=== PATIENT | female | born 1950 | race American Indian/Alaskan Native ===

== ENCOUNTER 2018-05-09 22:43 | Inpatient (IN) | payer MEDICARE ==
[2018-05-09] MEDS ORDERED: ASPIRIN PO ONE (22:59)
--- NOTE | 2018-05-09 23:18 | Emergency Department Report ---
ED Chest Pain HPI - General Chief Complaint: Chest Pain Stated Complaint: CHEST PAIN Time Seen by Provider: 05/09/18 22:48 Source: patient, EMS Mode of arrival: Stretcher Limitations: No Limitations - History of Present Illness Initial Comments: 67-year-old female with history of CHF, CAD w/ AICD presents to ED with 3 day history of left-sided chest pain. Patient states pain is intermittent, feels like indigestion. She states she took [place] and Aleve, however did not relieve her pain. Patient states pain radiates into her left arm as well. Patient reports associated shortness of breath. Patient is on 4 L of O2 chronically. Patient reports chronic swelling in left leg. Also reports swelling to left breast which has been present for several months. She says her physicians at [facility] ordered an ultrasound of the left breast. Patient states it did not show anything concerning. When asked if the pain that she is experiencing is coming from her breast or inside her chest, patient states the pain feels internal. PCP: Suresh Continuous Dryout Operator: Suresh ALARCON Complaint: chest pain -: days(s) (3) Onset: during rest, during exertion Pain Location: left chest Pain Radiation: LUE Severity: moderate Quality: other ("like indigestion") Consistency: intermittent Improves With: nothing Worsens With: nothing re: dyspnea. denies: nausea, vomting, diaphoresis Other Symptoms: leg swelling (chronic). denies: cough, fever - Related Data Home Medications Medication Instructions Recorded Confirmed Last Taken Aspirin [Adult Aspirin] 81 mg PO DAILY 02/24/18 05/10/18 05/09/18 Clopidogrel Bisulfate [Plavix] 75 mg PO QDAY 02/24/18 05/10/18 05/09/18 Duloxetine HCl 40 mg PO QDAY 02/24/18 05/10/18 05/09/18 Spironolactone [Aldactone] 25 mg PO QDAY 02/24/18 05/10/18 05/09/18 buPROPion SR [Wellbutrin SR] 150 mg PO BID 02/24/18 05/10/18 05/09/18 Buspirone HCl [busPIRone] 15 mg PO BID 05/10/18 05/10/18 05/09/18 Carvedilol 12.5 mg PO BID 01/05/10/18 05/09/18 Cyclobenzaprine [Flexeril] 10 mg PO TID PRN 05/10/18 05/10/18 05/09/18 Diphenhydramine HCl [Allergy 25 mg PO DAILY 05/10/18 05/10/18 05/09/18 Relief] Furosemide [Lasix] 80 mg PO DAILY 05/10/18 05/10/18 05/09/18 ISOSORBIDE MONOnitrate [Imdur ER] 60 mg PO QDAY 05/10/18 05/10/18 05/09/18 LORazepam [Ativan] 0.5 mg PO Q6H PRN 05/10/18 05/10/18 05/09/18 Sertraline HCl [Zoloft] 50 mg PO DAILY 05/10/18 05/10/18 05/09/18 hydrALAZINE [Apresoline] 25 mg PO Q8HR 05/10/18 05/10/18 05/09/18 Previous Rx's Medication Instructions Recorded Last Taken Type Albuterol Sulfate [Ventolin HFA] 1 puff IH Q6H PRN 30 Days 03/03/18 05/09/18 Rx [email or web address] Allergies Allergy/AdvReac Type Severity Reaction Status Date / Time lisinopril Allergy Anaphylaxis Verified 02/24/18 09:15 Penicillins Allergy Seizure Verified 02/24/18 09:15 Sulfa (Sulfonamide AdvReac Hives Verified 02/24/18 09:15 Antibiotics) Heart Score - HEART Score History: Slightly suspicious EKG: Non-specific Age: > 65 Risk factors: > 3 risk factors or hx of atherosclerotic disease Troponin: < normal limit HEART Score: 5 ED Review of Systems ROS: Stated complaint: CHEST PAIN Other details as noted in HPI Comment: All other systems reviewed and negative Constitutional: denies: chills, fever Respiratory: shortness of breath. denies: cough Cardiovascular: chest pain Gastrointestinal: denies: nausea, vomiting Musculoskeletal: other (reports left breast swelling) ED Past Medical Hx - Past Medical History Hx Hypertension: Yes Hx CVA: Yes (2016) Hx Heart Attack/AMI: Yes (2008) Hx COPD: Yes (home O2) - Surgical History Hx Pacemaker: Yes (AICD) - Social History Smoking Status: Former Smoker Substance Use Type: None - Medications Home Medications: Home Medications Medication Instructions Recorded Confirmed Last Taken Type Aspirin [Adult Aspirin] 81 mg PO DAILY 02/24/18 05/10/18 05/09/18 History Clopidogrel Bisulfate [Plavix] 75 mg PO QDAY 02/24/18 05/10/18 05/09/18 History Duloxetine HCl 40 mg PO QDAY 02/24/18 05/10/18 05/09/18 History Spironolactone [Aldactone] 25 mg PO QDAY 02/24/18 05/10/18 05/09/18 History buPROPion SR [Wellbutrin SR] 150 mg PO BID 02/24/18 05/10/18 05/09/18 History Albuterol Sulfate [Ventolin HFA] 1 puff IH Q6H PRN 30 Days 03/03/18 05/10/18 05/09/18 Rx [email or web address] Buspirone HCl [busPIRone] 15 mg PO BID 05/10/18 05/10/18 05/09/18 History Carvedilol 12.5 mg PO BID 05/10/18 05/10/18 05/09/18 History Cyclobenzaprine [Flexeril] 10 mg PO TID PRN 05/10/18 05/10/18 05/09/18 History Diphenhydramine HCl [Allergy 25 mg PO DAILY 05/10/18 05/10/18 05/09/18 History Relief] Furosemide [Lasix] 80 mg PO DAILY 05/10/18 05/10/18 05/09/18 History ISOSORBIDE MONOnitrate [Imdur ER] 60 mg PO QDAY 05/10/18 05/10/18 05/09/18 History LORazepam [Ativan] 0.5 mg PO Q6H PRN 05/10/18 05/10/18 05/09/18 History Sertraline HCl [Zoloft] 50 mg PO DAILY 05/10/18 05/10/18 05/09/18 History hydrALAZINE [Apresoline] 25 mg PO Q8HR 05/10/18 05/10/18 05/09/18 History ED Physical Exam - General Limitations: No Limitations General appearance: alert, in no apparent distress, obese - Head Head exam: Present: atraumatic, normocephalic - Eye Eye exam: Present: normal appearance - ENT ENT exam: Present: mucous membranes moist - Neck Neck exam: Present: normal inspection - Respiratory Respiratory exam: Present: normal lung sounds bilaterally. Absent: respiratory distress - Cardiovascular Cardiovascular Exam: Present: regular rate, normal rhythm - GI/Abdominal GI/Abdominal exam: Present: soft, other (edema to lower abdominal wall). Absent: distended - Extremities Exam Extremities exam: Present: other (1+ edema to left lower leg) - Neurological Exam Neurological exam: Present: alert, oriented X3 - Psychiatric Psychiatric exam: Present: normal affect, normal mood - Skin Skin exam: Present: warm, dry, intact, normal color, other (severe edema to left breast as compared to right, slightly tender, no nipple discharge present) ED Course Vital Signs 05/09/18 05/09/18 05/09/18 22:48 22:50 22:53 Temperature Pulse Rate 64 82 Respiratory 22 17 Rate Blood Pressure 130/57 Blood Pressure [Left] O2 Sat by Pulse 99 100 100 Oximetry 05/09/18 05/09/18 05/09/18 22:56 23:00 23:10 Temperature 98.5 F Pulse Rate 73 65 61 Respiratory 25 H 11 L 22 Rate Blood Pressure 130/57 130/57 Blood Pressure [Left] O2 Sat by Pulse 100 100 100 Oximetry 05/09/18 05/09/18 05/09/18 23:20 23:30 23:40 Temperature Pulse Rate 72 59 L 64 Respiratory 10 L 20 22 Rate Blood Pressure 130/57 130/57 130/57 Blood Pressure [Left] O2 Sat by Pulse 100 100 100 Oximetry 05/09/18 05/10/18 05/10/18 23:50 00:00 00:10 Temperature Pulse Rate 62 67 65 Respiratory 15 24 22 Rate Blood Pressure 130/57 130/57 130/57 Blood Pressure [Left] O2 Sat by Pulse 100 100 100 Oximetry 05/10/18 05/10/18 05/10/18 00:20 00:30 00:40 Temperature Pulse Rate 64 68 64 Respiratory 25 H 16 21 Rate Blood Pressure 130/57 130/57 130/57 Blood Pressure [Left] O2 Sat by Pulse 100 100 100 Oximetry 05/10/18 05/10/18 05/10/18 00:50 01:00 01:10 Temperature Pulse Rate 61 67 66 Respiratory 19 25 H 15 Rate Blood Pressure 130/57 130/57 130/57 Blood Pressure [Left] O2 Sat by Pulse 100 100 100 Oximetry 05/10/18 05/10/18 05/10/18 01:20 01:30 01:32 Temperature Pulse Rate 65 56 L 58 L Respiratory 14 14 16 Rate Blood Pressure 130/57 130/57 Blood Pressure 125/68 [Left] O2 Sat by Pulse 100 100 100 Oximetry CHRIS score - Chris Score Age > 65: (1) Yes Aspirin use within the Past 7 Days: (1) Yes 3 or more CAD Risk Factors: (1) Yes 2 or more Angina events in past 24 hrs: (1) Yes Known CAD with more than 50% Stenosis: (1) Yes Elevated Cardiac Markers: (0) No ST Deviation Greater than 0.5mm: (0) No CHRIS Score: 5 ED Medical Decision Making - Lab Data Result diagrams: 05/09/18 23:13 05/09/18 23:13 - EKG Data -: EKG Interpreted by Me EKG shows normal: intervals Rate: bradycardia - EKG Data Interpretation: other (ventricular paced rhythm) - Radiology Data Radiology results: report reviewed, image reviewed - Medical Decision Making 67-year-old female with history of CHF and CAD presents to ED with chest pain. This patient has been seen twice in the last 2 months for chest pain. Patient had a negative CTA Chest 2 during both visits. No evidence of PE. Patient underwent a cardiac cath last month which did show disease, however no stents were placed. Medical management was advised. Today troponin negative. EKG shows paced rhythm. Chest x-ray shows pleural effusion versus pneumonia, so blood cultures drawn and one dose of Levaquin was given. Also showing signs of overload with edema in abdominal wall, BNP elevated to 5,000. Lasix 80 mg IV given. Patient admitted to hospitalist, Dr Srivastava. - Differential Diagnosis ACS, pulm edema, pneumonia Critical care attestation.: If time is entered above; I have spent that time in minutes in the direct care of this critically ill patient, excluding procedure time. ED Disposition Clinical Impression: CHF (congestive heart failure), Acute chest pain, Pneumonia Disposition: OP ADMIT IP TO THIS HOSP Is pt being admited?: Yes Condition: Stable Time of Disposition: 00:11
[2018-05-09 23:30] LABS: Basophils % (Auto) 0.3 % (0.0-1.8); Eosinophils % (Auto) 0.6 % (0.0-4.3); Hematocrit 35.8 % (30.3-42.9); Hemoglobin 11.5 gm/dl (10.1-14.3); Lymphocytes # (Auto) 0.2 K/mm3 (1.2-5.4); Lymphocytes % (Auto) 5.6 % (13.4-35.0); Mean Corpuscular HGB Conc 32 % (30-34); Mean Corpuscular Volume 107 fl (79-97); Monocytes # (Auto) 0.5 K/mm3 (0.0-0.8); Monocytes % (Auto) 10.6 % (0.0-7.3); Platelet Count 164 K/mm3 (140-440); Red Blood Count 3.34 M/mm3 (3.65-5.03); Red Cell Distribution Width 16.2 % (13.2-15.2)
[2018-05-09 23:39] LABS: INR 1.08 (0.87-1.13)
[2018-05-09 23:40] LABS: Partial Thromboplastin Time 25.4 Sec. (24.2-36.6)
[2018-05-09 23:43] LABS: BUN/Creatinine Ratio 23; Blood Urea Nitrogen 18 mg/dL (7-17); Calcium 7.9 mg/dL (8.4-10.2); Hemolysis Index 2
--- NOTE | 2018-05-09 23:54 | XRay Report ---
FINAL REPORT EXAM: XR CHEST 1V AP HISTORY: chest pain TECHNIQUE: Chest single AP PRIORS: Comparison is dated March 25, 2018 FINDINGS: Cardiac silhouette is enlarged. Pacemaker/AICD again noted unchanged. There is some increased density in the left retrocardiac region which appears unchanged from prior exam. Pulmonary vasculature is within normal limits IMPRESSION: Cardiomegaly Pacemaker/AICD Left lower lobe infiltrate/effusion
[2018-05-10] MEDS ORDERED: LEVAQUIN 750MG/150ML 750 MG/150 ML BAG IV ONE (00:06)
[2018-05-10] MEDS ORDERED: LASIX IV ONE (00:10)
[2018-05-10] MEDS ORDERED: MORPHINE IV PRN (00:44)
[2018-05-10] MEDS ORDERED: NITROSTAT SL PRN (00:47)
[2018-05-10] MEDS: NITRO-BID 2% TP SCH ×4 (06:50→17:28)
--- NOTE | 2018-05-10 08:07 | History and Physical Report ---
CHIEF COMPLAINT: Chest pain. Other complaint includes shortness of breath. HISTORY OF PRESENT ILLNESS: The patient is a 67-year-old female who has history of coronary artery disease and CHF, presenting with 3-day history of left-sided chest pain that is intermittent and the patient states it feels like indigestion and took some antacid and Aleve without relief of the pain. Pain radiates to the left upper extremity and is associated with shortness of breath. However, the patient is on oxygen 4 L chronically. There is also history of swelling of the left leg, which is chronic. The patient also has history of swelling of the left breast going on for some months. The patient said that the left breast area was subjected to ultrasound investigation at [facility] and was told that there was nothing serious going on with the swelling in the left breast at [facility]. There is no history of fever. There is history of cough that is productive of yellow sputum. There is also associated history of diaphoresis, nausea, and dizziness. PAST MEDICAL HISTORY: Pertinent for hypertension, cerebrovascular accident, coronary artery disease, COPD, and CHF. PAST SURGICAL HISTORY: Pertinent for AICD placement. FAMILY HISTORY: Noncontributory. SOCIAL HISTORY: The patient is a former cigarette smoker. Does not smoke currently, does not drink alcohol and does not use illicit drugs. MEDICATIONS: The patient is on aspirin 81 mg by mouth daily, Plavix 75 mg by mouth daily, duloxetine 40 mg by mouth daily, Aldactone 25 mg by mouth daily, Wellbutrin 150 mg by mouth twice daily, albuterol sulfate 1 puff inhalation every 6 hours as needed for shortness of breath, buspirone 15 mg by mouth daily, carvedilol 12.5 mg by mouth twice daily, Flexeril 10 mg by mouth 3 times daily, diphenhydramine hydrochloride 25 mg by mouth daily, Lasix 80 mg by mouth daily, isosorbide mononitrate 60 mg by mouth daily, Ativan or lorazepam 0.5 mg by mouth every 6 hours as needed for anxiety, Zoloft or Sertraline 50 mg by mouth daily, and Apresoline or hydralazine 25 mg by mouth every 8 hours. ALLERGIES: THE PATIENT IS ALLERGIC TO LISINOPRIL, PENICILLIN, AND SULFA DRUGS. REVIEW OF SYSTEMS: CONSTITUTIONAL: There is no fever, no chills, no diaphoresis. HEENT: There is no headache or sore throat. CARDIOVASCULAR SYSTEM: Chest pain is present. No orthopnea. RESPIRATORY SYSTEM: Shortness of breath is present. Cough is present. GASTROINTESTINAL SYSTEM: There is nausea, but no vomiting. No abdominal pain, diarrhea, or constipation. NEUROLOGICAL SYSTEM: Dizziness present. No altered mental status. MUSCULOSKELETAL SYSTEM: Chronic swelling of the left lower extremity noted. No joint pain. DERMATOLOGICAL SYSTEM: There is no skin rash or itching. GENITOURINARY SYSTEM: There is no dysuria, hematuria, or flank pain. Rest of system review is normal. PHYSICAL EXAMINATION: GENERAL: At the time of exam, the patient was found to be alert, oriented x 3, and in mild distress due to chest pain and shortness of breath. VITAL SIGNS: At the initial time of presentation showed temperature of 98.5 degree Fahrenheit, pulse of 73, respirations 25, blood pressure 130/57, O2 sat of 100% on room air. HEENT: Shows pupils to be equal, round, reactive to light and accommodating. Extraocular muscles are intact. NECK: Supple with no JVD or carotid bruits. CARDIOVASCULAR SYSTEM: Show normal first and second heart sounds with no gallops or murmurs. RESPIRATORY SYSTEM: Show good air entry on both sides of the lungs with scattered crackles in the left lower lung bases. GASTROINTESTINAL SYSTEM: Show abdomen to be full, soft, nontender with no organomegaly or rigidity. NEUROLOGIC: Showed no focal deficit. MUSCULOSKELETAL SYSTEM: Show chronic swelling in the left lower extremity. DERMATOLOGICAL SYSTEM: Show no skin rash. GENITOURINARY SYSTEM: Show no costovertebral angle tenderness. PERTINENT LABORATORY AND IMAGING STUDIES: The patient had a chest x-ray done that shows left lower lobe infiltrate versus effusion. The patient's lab results shows CBC with low WBC of 4200, normal hemoglobin and normal hematocrit with elevated MCV of 107. The patient's CBC differential shows high monocyte count of 10.6% and high segmented neutrophil count of 82.9%. Coagulation studies were unremarkable. The patient's chemistry showed normal sodium, potassium, and elevated chloride level of 111 with elevated CO2 of 31, and the rest of chemistry was unremarkable, except for high brain natriuretic peptide level of 5118. The patient's troponin level came back normal. DIAGNOSES: 1. Congestive heart failure exacerbation. 2. Left lower lobe pneumonia. 3. Chest pain. PLAN OF ACTION: 1. The patient will be admitted as inpatient to telemetry. 2. The patient will have cardiac enzymes involving troponin, total CK, and CK-MB checked serially every 6 hours x 2 more levels. 3. The patient will be n.p.o. and we will have Lexiscan stress test done this morning 05/10/2018. 4. The patient will be on IV Levaquin 750 mg daily for treatment of pneumonia. 5. The patient will be on IV Lasix 40 mg daily. 6. The patient will be on nitro paste half inch to anterior chest wall q.i.d. and also will be on sublingual nitroglycerin 0.4 mg every 5 minutes for breakthrough chest pain. 7. The patient will be on aspirin 325 mg by mouth daily and Tylenol 650 mg by mouth every 4 hours as needed for fever and headache. 8. The patient will be on IV morphine 2 mg every 3 hours as needed for pain and will be on IV Zofran 4 mg every 8 hours for nausea and vomiting. 9. The patient will be on oxygen by nasal cannula 2 liter per minute. The patient will have 2D echo also done this morning for evaluation of the patient's left ventricular function because of CHF. JOB# [id number] [facility]/SHANIA VILLA
[2018-05-10 08:27] LABS: Creatine Kinase MB 2.2 ng/mL (0.0-4.0)
[2018-05-10] MEDS: ASPIRIN PO SCH (10:57)
[2018-05-10] MEDS: LEVAQUIN 750MG/150ML 750 MG/150 ML BAG IV SCH (10:58)
[2018-05-10] MEDS: LASIX IV SCH (10:58)
[2018-05-10] MEDS: HEPARIN SUB-Q SCH ×2 (10:58→21:09)
--- NOTE | 2018-05-10 11:28 | Progress Note ---
Assessment and Plan Assessment and plan: --Chest pain; serial cardiac enzymes negative Continue current management Patient had a stress test which was negative in March 2018, as well as heart cath Coronary angiogram ; March 2018 /Procedures [place] vessel disease with 100% occlusion of LAD 100% occlusion of proximal right coronary artery Patent graft to LAD patent graft to OM and PDA Ejection fraction 10-15%/dilated cardiomyopathy Continue aspirin and Plavix and beta blockers and nitrates and supportive care Stress test canceled --Severe ischemic cardiomyopathy; ejection fraction 10-15% Continue anti-failure medications, input output monitoring, low sodium diet Fluid restrictions --Status post AICD; stable, closely monitor --History of depression; continue home antidepressant medications --DVT prophylaxis; Lovenox Will closely monitor the patient and adjust management as needed Possible discharge in 1-2 days if stable History Interval history: Patient seen and examined medical records reviewed Patient feels slightly better no new complaints Vital signs noted Alert awake oriented 3 Hospitalist Physical - Constitutional Vitals: Temp Pulse Resp BP Pulse Ox 98.3 F 58 L 20 120/62 100 05/10/18 08:28 05/10/18 08:29 05/10/18 08:29 05/10/18 08:29 05/10/18 09:09 General appearance: Present: no acute distress, well-nourished, obese - EENT Eyes: Present: PERRL, EOM intact - Neck Neck: Present: supple, normal ROM - Respiratory Respiratory effort: normal Respiratory: bilateral: diminished, negative: rales, rhonchi, wheezing - Cardiovascular Rhythm: regular Heart Sounds: Present: S1 & S2 - Extremities Extremities: no ischemia, No edema - Abdominal General gastrointestinal: soft, non-tender, non-distended, normal bowel sounds - Integumentary Integumentary: Present: clear, warm - Psychiatric Psychiatric: appropriate mood/affect, cooperative - Neurologic Neurologic: CNII-XII intact, moves all extremities Results - Labs CBC & Chem 7: 05/09/18 23:13 05/09/18 23:13 Labs: Laboratory Last Values WBC 4.2 K/mm3 (4.5-11.0) L 05/09/18 23:13 RBC 3.34 M/mm3 (3.65-5.03) L 05/09/18 23:13 Hgb 11.5 gm/dl (10.1-14.3) 05/09/18 23:13 Hct 35.8 % (30.3-42.9) 05/09/18 23:13 MCV 107 fl (79-97) H 05/09/18 23:13 MCH 34 pg (28-32) H 05/09/18 23:13 MCHC 32 % (30-34) 05/09/18 23:13 RDW 16.2 % (13.2-15.2) H 05/09/18 23:13 Plt Count 164 K/mm3 (140-440) 05/09/18 23:13 Lymph % (Auto) 5.6 % (13.4-35.0) L 05/09/18 23:13 [place] % (Auto) 10.6 % (0.0-7.3) H 05/09/18 23:13 Eos % (Auto) 0.6 % (0.0-4.3) 05/09/18 23:13 Baso % (Auto) 0.3 % (0.0-1.8) 05/09/18 23:13 Lymph # 0.2 K/mm3 (1.2-5.4) L 05/09/18 23:13 [place] # 0.5 K/mm3 (0.0-0.8) 05/09/18 23:13 Eos # 0.0 K/mm3 (0.0-0.4) 05/09/18 23:13 Baso # 0.0 K/mm3 (0.0-0.1) 05/09/18 23:13 Seg Neutrophils % 82.9 % (40.0-70.0) H 05/09/18 23:13 Seg Neutrophils # 3.5 K/mm3 (1.8-7.7) 05/09/18 23:13 PT 14.4 Sec. (12.2-14.9) 05/09/18 23:13 INR 1.08 (0.87-1.13) 05/09/18 23:13 APTT 25.4 Sec. (24.2-36.6) 05/09/18 23:13 Sodium 145 mmol/L (137-145) 05/09/18 23:13 Potassium 4.4 mmol/L (3.6-5.0) 05/09/18 23:13 Chloride 111.4 mmol/L (98-107) H 05/09/18 23:13 Carbon Dioxide 31 mmol/L (22-30) H 05/09/18 23:13 Anion Gap 7 mmol/L 05/09/18 23:13 BUN 18 mg/dL (7-17) H 05/09/18 23:13 Creatinine 0.8 mg/dL (0.7-1.2) 05/09/18 23:13 Estimated GFR > 60 ml/min 05/09/18 23:13 BUN/Creatinine Ratio 23 % 05/09/18 23:13 Glucose 92 mg/dL (65-100) 05/09/18 23:13 Calcium 7.9 mg/dL (8.4-10.2) L 05/09/18 23:13 Total Creatine Kinase 142 units/L (30-135) H 05/10/18 07:18 CK-MB (CK-2) 2.2 ng/mL (0.0-4.0) 05/10/18 07:18 CK-MB (CK-2) Rel Index 1.5 (0-4) 05/10/18 07:18 Troponin T < 0.010 ng/mL (0.00-0.029) 05/10/18 07:18 NT-Pro-B Natriuret Pep 5118 pg/mL (0-900) H 05/09/18 23:13
[2018-05-10] MEDS ORDERED: PROAIR IH PRN (11:30)
[2018-05-10] MEDS ORDERED: PROVENTIL IH PRN (12:45)
[2018-05-10 14:38] LABS: Creatine Kinase MB 2.6 ng/mL (0.0-4.0)
[2018-05-10] MEDS: MORPHINE IV PRN ×2 (15:06→21:10)
[2018-05-10] MEDS: APRESOLINE PO SCH ×2 (15:07→21:13)
[2018-05-10] MEDS: COREG PO SCH (21:10)
[2018-05-10] MEDS: WELLBUTRIN SR PO SCH (21:12)
[2018-05-11] MEDS: MORPHINE IV PRN ×2 (05:16→14:08)
[2018-05-11] MEDS: APRESOLINE PO SCH ×3 (05:17→22:35)
[2018-05-11] MEDS: NITRO-BID 2% TP SCH ×4 (05:18→17:27)
[2018-05-11 05:20] LABS: BUN/Creatinine Ratio 19; Blood Urea Nitrogen 17 mg/dL (7-17); Hemolysis Index 5
[2018-05-11] MEDS: WELLBUTRIN SR PO SCH ×2 (10:18→22:33)
[2018-05-11] MEDS: PLAVIX PO SCH (10:19)
[2018-05-11] MEDS: LASIX IV SCH (10:19)
[2018-05-11] MEDS: ZOLOFT PO SCH (10:19)
[2018-05-11] MEDS: ASPIRIN PO SCH (10:19)
[2018-05-11] MEDS: HEPARIN SUB-Q SCH ×2 (10:19→22:33)
[2018-05-11] MEDS: LEVAQUIN 750MG/150ML 750 MG/150 ML BAG IV SCH (10:19)
[2018-05-11] MEDS: ALDACTONE PO SCH (11:01)
[2018-05-11] MEDS: COREG PO SCH ×2 (11:01→22:36)
[2018-05-11] MEDS: IMDUR PO SCH (11:02)
--- NOTE | 2018-05-11 16:09 | Progress Note ---
Assessment and Plan Assessment and plan: --Severe ischemic cardiomyopathy; ejection fraction 10-15% Continue anti-failure medications, input output monitoring, low sodium diet Fluid restrictions --Status post AICD; stable, closely monitor --Chest pain; serial cardiac enzymes negative recent workup no acute changes noted in March 2018, as well as heart cath Coronary angiogram ; March 2018 /Procedures [place] vessel disease with 100% occlusion of LAD 100% occlusion of proximal right coronary artery Patent graft to LAD patent graft to OM and PDA Ejection fraction 10-15%/dilated cardiomyopathy Continue aspirin and Plavix and beta blockers and nitrates and supportive care Stress test canceled, consider cardiology evaluation is needed --History of depression; continue home antidepressant medications --DVT prophylaxis; Lovenox Will closely monitor the patient and adjust management as needed Possible discharge in 1-2 days if stable History Interval history: Patient seen and examined medical records reviewed 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 [place] Extensively evaluated last month Today patient is comfortable in no new complaints Except for generalized weakness Vital signs reviewed Hospitalist Physical - Constitutional Vitals: Temp Pulse Resp BP Pulse Ox 97.7 F 69 19 116/62 98 05/11/18 12:42 05/11/18 14:33 05/11/18 14:08 05/11/18 14:12 05/11/18 12:41 General appearance: Present: no acute distress, well-nourished, obese - EENT Eyes: Present: PERRL, EOM intact - Neck Neck: Present: supple, normal ROM - Respiratory Respiratory effort: normal Respiratory: bilateral: diminished, negative: rales, rhonchi, wheezing - Cardiovascular Rhythm: regular Heart Sounds: Present: S1 & S2 - Extremities Extremities: no ischemia, No edema - Abdominal General gastrointestinal: soft, non-tender, non-distended, normal bowel sounds - Integumentary Integumentary: Present: clear, warm - Psychiatric Psychiatric: appropriate mood/affect, cooperative - Neurologic Neurologic: CNII-XII intact Results - Labs CBC & Chem 7: 05/09/18 23:13 05/11/18 04:33 Labs: Laboratory Last Values WBC 4.2 K/mm3 (4.5-11.0) L 05/09/18 23:13 RBC 3.34 M/mm3 (3.65-5.03) L 05/09/18 23:13 Hgb 11.5 gm/dl (10.1-14.3) 05/09/18 23:13 Hct 35.8 % (30.3-42.9) 05/09/18 23:13 MCV 107 fl (79-97) H 05/09/18 23:13 MCH 34 pg (28-32) H 05/09/18 23:13 MCHC 32 % (30-34) 05/09/18 23:13 RDW 16.2 % (13.2-15.2) H 05/09/18 23:13 Plt Count 164 K/mm3 (140-440) 05/09/18 23:13 Lymph % (Auto) 5.6 % (13.4-35.0) L 05/09/18 23:13 [place] % (Auto) 10.6 % (0.0-7.3) H 05/09/18 23:13 Eos % (Auto) 0.6 % (0.0-4.3) 05/09/18 23:13 Baso % (Auto) 0.3 % (0.0-1.8) 05/09/18 23:13 Lymph # 0.2 K/mm3 (1.2-5.4) L 05/09/18 23:13 [place] # 0.5 K/mm3 (0.0-0.8) 05/09/18 23:13 Eos # 0.0 K/mm3 (0.0-0.4) 05/09/18 23:13 Baso # 0.0 K/mm3 (0.0-0.1) 05/09/18 23:13 Seg Neutrophils % 82.9 % (40.0-70.0) H 05/09/18 23:13 Seg Neutrophils # 3.5 K/mm3 (1.8-7.7) 05/09/18 23:13 PT 14.4 Sec. (12.2-14.9) 05/09/18 23:13 INR 1.08 (0.87-1.13) 05/09/18 23:13 APTT 25.4 Sec. (24.2-36.6) 05/09/18 23:13 Sodium 139 mmol/L (137-145) 05/11/18 04:33 Potassium 4.2 mmol/L (3.6-5.0) 05/11/18 04:33 Chloride 103.7 mmol/L (98-107) 05/11/18 04:33 Carbon Dioxide 32 mmol/L (22-30) H 05/11/18 04:33 Anion Gap 8 mmol/L 05/11/18 04:33 BUN 17 mg/dL (7-17) 05/11/18 04:33 Creatinine 0.9 mg/dL (0.7-1.2) 05/11/18 04:33 Estimated GFR > 60 ml/min 05/11/18 04:33 BUN/Creatinine Ratio 19 % 05/11/18 04:33 Glucose 91 mg/dL (65-100) 05/11/18 04:33 Calcium 8.0 mg/dL (8.4-10.2) L 05/11/18 04:33 Magnesium 1.90 mg/dL (1.7-2.3) 05/11/18 04:33 Total Creatine Kinase 172 units/L (30-135) H 05/10/18 12:33 CK-MB (CK-2) 2.6 ng/mL (0.0-4.0) 05/10/18 12:33 CK-MB (CK-2) Rel Index 1.5 (0-4) 05/10/18 12:33 Troponin T 0.011 ng/mL (0.00-0.029) 05/10/18 12:33 NT-Pro-B Natriuret Pep 5118 pg/mL (0-900) H 05/09/18 23:13
[2018-05-11] MEDS: ZOFRAN IV PRN (16:52)
[2018-05-12] MEDS: NITRO-BID 2% TP SCH ×4 (05:56→19:17)
[2018-05-12] MEDS: APRESOLINE PO SCH ×3 (05:58→22:50)
[2018-05-12] MEDS: ALDACTONE PO SCH (09:37)
[2018-05-12] MEDS: WELLBUTRIN SR PO SCH ×2 (09:38→22:50)
[2018-05-12] MEDS: ZOLOFT PO SCH (09:38)
[2018-05-12] MEDS: ASPIRIN PO SCH (09:38)
[2018-05-12] MEDS: COREG PO SCH ×2 (09:38→22:50)
[2018-05-12] MEDS: LEVAQUIN 750MG/150ML 750 MG/150 ML BAG IV SCH (09:39)
[2018-05-12] MEDS: LASIX IV SCH (09:39)
[2018-05-12] MEDS: PLAVIX PO SCH (09:39)
[2018-05-12] MEDS: IMDUR PO SCH (09:40)
[2018-05-12] MEDS: HEPARIN SUB-Q SCH ×2 (09:41→22:50)
[2018-05-12] MEDS: TYLENOL PO PRN ×2 (09:46→15:48)
--- NOTE | 2018-05-12 11:32 | Consultation ---
Addendum entered and electronically signed by JUWAN HOPE MD 05/12/18 18:09: Patient has coronary artery disease, severe ischemic cardiomyopathy, internal ca rdiac defibrillator. Chest x-ray on this presentation shows interstitial edema consistent with acute on chronic systolic heart failure. In addition to diuretics, afterload agents and other guideline directed medical therapy, we will add a trial of intravenous inotropic therapy. Addendum entered and electronically signed by JUWAN HOPE MD 05/12/18 17:42: Medical therapy for heart failure exacerbation. Original Note: History of Present Illness Consult date: 05/12/18 Consult reason: chest pain History of present illness: Patient is a 67 year old woman lula usually receives her care at [facility]. She has a history of ischemic cardiomyopathy and has a cardiac defibrillator in situ. Patient has a history of coronary artery disease with prior bypass grafting. A month ago the patient was admitted to this hospital with chest pain and underw ent a cardiac cath that revealed patent SVG to LAD, SVG to OM and SVG to PDA, Patent diagonal stent, LVEF 10-15%. Patient returns with complaints of chest pain, intermittent for several days. Patient admits to compliance with her medications. A chest x-ray reports cardiomegaly with a left lower lobe infiltrate versus effusion. Findings are similar when compared to her chest x-ray done in March. An EKG shows a ventricular paced rhythm. Medications and Allergies Allergies Allergy/AdvReac Type Severity Reaction Status Date / Time lisinopril Allergy Anaphylaxis Verified 02/24/18 09:15 Penicillins Allergy Seizure Verified 02/24/18 09:15 Sulfa (Sulfonamide AdvReac Hives Verified 02/24/18 09:15 Antibiotics) Home Medications Medication Instructions Recorded Confirmed Last Taken Type Aspirin [Adult Aspirin] 81 mg PO DAILY 02/24/18 05/10/18 05/09/18 History Clopidogrel Bisulfate [Plavix] 75 mg PO QDAY 02/24/18 05/10/18 05/09/18 History Duloxetine HCl 40 mg PO QDAY 02/24/18 05/10/18 05/09/18 History Spironolactone [Aldactone] 25 mg PO QDAY 02/24/18 05/10/18 05/09/18 History buPROPion SR [Wellbutrin SR] 150 mg PO BID 11/04/0105/10/18 05/09/18 History Albuterol Sulfate [Ventolin HFA] 1 puff IH Q6H PRN 30 Days 03/03/18 05/10/18 05/09/18 Rx [email or web address] Buspirone HCl [busPIRone] 15 mg PO BID 05/10/18 05/10/18 05/09/18 History Carvedilol 12.5 mg PO BID 05/10/18 05/10/18 05/09/18 History Cyclobenzaprine [Flexeril] 10 mg PO TID PRN 05/10/18 05/10/18 05/09/18 History Diphenhydramine HCl [Allergy 25 mg PO DAILY 05/10/18 05/10/18 05/09/18 History Relief] Furosemide [Lasix] 80 mg PO DAILY 05/10/18 05/10/18 05/09/18 History ISOSORBIDE MONOnitrate [Imdur ER] 60 mg PO QDAY 05/10/18 05/10/18 05/09/18 History LORazepam [Ativan] 0.5 mg PO Q6H PRN 05/10/18 05/10/18 05/09/18 History Sertraline HCl [Zoloft] 50 mg PO DAILY 05/10/18 05/10/18 05/09/18 History hydrALAZINE [Apresoline] 25 mg PO Q8HR 05/10/18 05/10/18 05/09/18 History Active Meds: Active Medications Acetaminophen (Tylenol) 650 mg PO Q4H PRN PRN Reason: Fever >101 Last Admin: 05/12/18 09:46 Dose: 650 mg Documented by: Albuterol (Proventil) 2.5 mg IH Q4H PRN PRN Reason: Shortness Of Breath Aspirin (Aspirin) 325 mg PO QDAY [facility] Last Admin: 05/12/18 09:38 Dose: 325 mg Documented by: Bupropion HCl (Wellbutrin Sr) 150 mg PO BID [facility] Last Admin: 05/12/18 09:38 Dose: 150 mg Documented by: Carvedilol (Coreg) 12.5 mg PO BID [facility] Last Admin: 05/12/18 09:38 Dose: 12.5 mg Documented by: Clopidogrel Bisulfate (Plavix) 75 mg PO QDAY [facility] Last Admin: 05/12/18 09:39 Dose: 75 mg Documented by: Furosemide (Lasix) 40 mg IV QDAY [facility] Last Admin: 05/12/18 09:39 Dose: Not Given Documented by: Heparin Sodium (Porcine) (Heparin) 5,000 unit SUB-Q Q12HR [facility] Last Admin: 05/12/18 09:41 Dose: 5,000 unit Documented by: Hydralazine HCl (Apresoline) 25 mg PO Q8HR [facility] Last Admin: 05/12/18 05:58 Dose: Not Given Documented by: Levofloxacin/Dextrose (Levaquin 750mg/150ml) 750 mg in 150 mls @ 100 mls/hr IV Q24HR [facility]; Protocol Last Admin: 05/12/18 09:39 Dose: 100 mls/hr Documented by: Isosorbide Mononitrate (Imdur) 60 mg PO QDAY [facility] Last Admin: 05/12/18 09:40 Dose: Not Given Documented by: Morphine Sulfate (Morphine) 2 mg IV Q3H PRN PRN Reason: Pain, Moderate (4-6) Last Admin: 05/11/18 14:08 Dose: 2 mg Documented by: Nitroglycerin (Nitrostat) 0.4 mg SL .Q5MIN PRN PRN Reason: Chest Pain Last Admin: 05/10/18 03:29 Dose: 0.4 mg Documented by: Nitroglycerin (Nitro-Bid 2%) 0.5 inch TP QIDNTG [facility]; Protocol Last Admin: 05/12/18 09:39 Dose: Not Given Documented by: Ondansetron HCl (Zofran) 4 mg IV Q8H PRN PRN Reason: Nausea And Vomiting Last Admin: 05/11/18 16:52 Dose: 4 mg Documented by: Sertraline HCl (Zoloft) 50 mg PO DAILY [facility] Last Admin: 05/12/18 09:38 Dose: Not Given Documented by: Spironolactone (Aldactone) 25 mg PO QDAY [facility] Last Admin: 05/12/18 09:37 Dose: Not Given Documented by: Physical Examination Vital Signs Pulse Ox 99 05/09/18 22:48 General appearance: no acute distress HEENT: Positive: PERRL Cardiac: Positive: Other (paced) Lungs: Positive: Decreased Breath Sounds Neuro: Positive: Grossly Intact Extremities: Absent: edema Results 05/09/18 23:13 05/11/18 04:33 Assessment and Plan Chest pain Hx of coronary artery disease cardiac cath 03/2018 revealed patent SVG to LAD, SVG to OM and SVG to PDA, Patent diagonal stent, LVEF 10-15%. Hx of Ischemic cardiomyopathy, ejection fraction 10-15%. Presence of single chamber cardiac defibrillator Tobacco abuse
--- NOTE | 2018-05-12 16:15 | Progress Note ---
Assessment and Plan Assessment and plan: 67-year-old female patient with significant past medical history of coronary artery disease status post PCI, CHF, AICD placement was admitted through emergency room with worsening shortness of breath left lower lobe pneumonia, patient is on empiric antibiotics and cardiac medications --Left lower lobe pneumonia; continue oxygen titrated O2 sats more than 90% IV antibiotics, follow cultures, cough medicine, antihistamines supportive care --Severe ischemic cardiomyopathy; ejection fraction 10-15% Continue anti-failure medications, input output monitoring, low sodium diet Fluid restrictions --Status post AICD; stable, closely monitor --Chest pain; serial cardiac enzymes negative recent workup no acute changes noted in March 2018, as well as heart cath Coronary angiogram ; March 2018 /Procedures [place] vessel disease with 100% occlusion of LAD 100% occlusion of proximal right coronary artery, Patent graft to LAD patent graft to OM and PDA Ejection fraction 10-15%/dilated cardiomyopathy Continue aspirin and Plavix and beta blockers and nitrates and supportive care Stress test canceled, consider cardiology evaluation is needed --History of depression; continue home antidepressant medications --DVT prophylaxis; Lovenox Will closely monitor the patient and adjust management as needed Possible discharge in 1-2 days if stable Disposition; follow clinically possible discharge in 1-2 days if stable History Interval history: Patient seen and examined medical records reviewed Patient complains of cough and congestion Admitted with left lower lobe pneumonia on IV antibiotics and cough medicine Patient also complains of chest pain today, has significant history of coronary artery disease Alert awake oriented, Mild distress Vital signs reviewed Hospitalist Physical - Constitutional Vitals: Temp Pulse Resp BP Pulse Ox 98.3 F 54 L 18 103/53 100 05/12/18 13:20 05/12/18 15:51 05/12/18 15:51 05/12/18 15:51 05/12/18 13:20 General appearance: Present: mild distress, well-nourished - EENT Eyes: Present: PERRL, EOM intact - Neck Neck: Present: supple, normal ROM - Respiratory Respiratory effort: normal Respiratory: bilateral: diminished, rhonchi, negative: rales, wheezing - Cardiovascular Rhythm: regular Heart Sounds: Present: S1 & S2 - Extremities Extremities: no ischemia, No edema - Abdominal General gastrointestinal: soft, non-tender, non-distended, normal bowel sounds - Integumentary Integumentary: Present: clear, warm - Psychiatric Psychiatric: appropriate mood/affect, cooperative - Neurologic Neurologic: CNII-XII intact, moves all extremities Results - Labs CBC & Chem 7: 05/09/18 23:13 05/11/18 04:33 Labs: Laboratory Last Values WBC 4.2 K/mm3 (4.5-11.0) L 05/09/18 23:13 RBC 3.34 M/mm3 (3.65-5.03) L 05/09/18 23:13 Hgb 11.5 gm/dl (10.1-14.3) 05/09/18 23:13 Hct 35.8 % (30.3-42.9) 05/09/18 23:13 MCV 107 fl (79-97) H 05/09/18 23:13 MCH 34 pg (28-32) H 05/09/18 23:13 MCHC 32 % (30-34) 05/09/18 23:13 RDW 16.2 % (13.2-15.2) H 05/09/18 23:13 Plt Count 164 K/mm3 (140-440) 05/09/18 23:13 Lymph % (Auto) 5.6 % (13.4-35.0) L 05/09/18 23:13 [place] % (Auto) 10.6 % (0.0-7.3) H 05/09/18 23:13 Eos % (Auto) 0.6 % (0.0-4.3) 05/09/18 23:13 Baso % (Auto) 0.3 % (0.0-1.8) 05/09/18 23:13 Lymph # 0.2 K/mm3 (1.2-5.4) L 05/09/18 23:13 [place] # 0.5 K/mm3 (0.0-0.8) 05/09/18 23:13 Eos # 0.0 K/mm3 (0.0-0.4) 05/09/18 23:13 Baso # 0.0 K/mm3 (0.0-0.1) 05/09/18 23:13 Seg Neutrophils % 82.9 % (40.0-70.0) H 05/09/18 23:13 Seg Neutrophils # 3.5 K/mm3 (1.8-7.7) 05/09/18 23:13 PT 14.4 Sec. (12.2-14.9) 05/09/18 23:13 INR 1.08 (0.87-1.13) 05/09/18 23:13 APTT 25.4 Sec. (24.2-36.6) 05/09/18 23:13 Sodium 139 mmol/L (137-145) 05/11/18 04:33 Potassium 4.2 mmol/L (3.6-5.0) 05/11/18 04:33 Chloride 103.7 mmol/L (98-107) 05/11/18 04:33 Carbon Dioxide 32 mmol/L (22-30) H 05/11/18 04:33 Anion Gap 8 mmol/L 05/11/18 04:33 BUN 17 mg/dL (7-17) 05/11/18 04:33 Creatinine 0.9 mg/dL (0.7-1.2) 05/11/18 04:33 Estimated GFR > 60 ml/min 05/11/18 04:33 BUN/Creatinine Ratio 19 % 05/11/18 04:33 Glucose 91 mg/dL (65-100) 05/11/18 04:33 Calcium 8.0 mg/dL (8.4-10.2) L 05/11/18 04:33 Magnesium 1.90 mg/dL (1.7-2.3) 05/11/18 04:33 Total Creatine Kinase 172 units/L (30-135) H 05/10/18 12:33 CK-MB (CK-2) 2.6 ng/mL (0.0-4.0) 05/10/18 12:33 CK-MB (CK-2) Rel Index 1.5 (0-4) 05/10/18 12:33 Troponin T 0.011 ng/mL (0.00-0.029) 05/10/18 12:33 NT-Pro-B Natriuret Pep 5118 pg/mL (0-900) H 05/09/18 23:13
[2018-05-12] MEDS ORDERED: MILK OF MAGNESIA PO ONE (16:16)
[2018-05-12] MEDS: MILRINONE-D5W 20 MG/100 ML 20 MG/100 ML BAG IV SCH (18:31)
[2018-05-12] MEDS: ZOFRAN IV PRN (23:17)
[2018-05-12] MEDS: MILK OF MAGNESIA PO PRN (23:17)
[2018-05-13] MEDS: MILRINONE-D5W 20 MG/100 ML 20 MG/100 ML BAG IV SCH ×2 (03:45→11:49)
[2018-05-13] MEDS: MILK OF MAGNESIA PO PRN ×2 (03:51→17:11)
[2018-05-13 06:28] LABS: Basophils % (Auto) 0.6 % (0.0-1.8); Eosinophils % (Auto) 0.5 % (0.0-4.3); Hematocrit 32.8 % (30.3-42.9); Hemoglobin 10.8 gm/dl (10.1-14.3); Lymphocytes # (Auto) 0.2 K/mm3 (1.2-5.4); Lymphocytes % (Auto) 6.1 % (13.4-35.0); Mean Corpuscular HGB Conc 33 % (30-34); Mean Corpuscular Volume 104 fl (79-97); Monocytes # (Auto) 0.3 K/mm3 (0.0-0.8); Monocytes % (Auto) 10.6 % (0.0-7.3); Platelet Count 160 K/mm3 (140-440); Red Blood Count 3.17 M/mm3 (3.65-5.03); Red Cell Distribution Width 15.4 % (13.2-15.2)
[2018-05-13 06:41] LABS: BUN/Creatinine Ratio 18; Blood Urea Nitrogen 16 mg/dL (7-17); Hemolysis Index 30
[2018-05-13] MEDS: NITRO-BID 2% TP SCH ×4 (06:45→17:12)
[2018-05-13] MEDS: APRESOLINE PO SCH ×3 (06:50→22:01)
[2018-05-13] MEDS: LASIX IV SCH ×2 (06:50→17:13)
[2018-05-13] MEDS: TYLENOL PO PRN (07:16)
[2018-05-13] MEDS: IMDUR PO SCH (09:50)
[2018-05-13] MEDS: ZOLOFT PO SCH (09:50)
[2018-05-13] MEDS: ALDACTONE PO SCH (09:51)
[2018-05-13] MEDS: WELLBUTRIN SR PO SCH ×2 (09:51→21:57)
[2018-05-13] MEDS: LEVAQUIN PO SCH (09:51)
[2018-05-13] MEDS: COREG PO SCH ×2 (09:52→22:12)
[2018-05-13] MEDS: PLAVIX PO SCH (09:52)
[2018-05-13] MEDS: ASPIRIN PO SCH (09:55)
[2018-05-13] MEDS: HEPARIN SUB-Q SCH ×2 (09:55→21:57)
[2018-05-13] MEDS: MORPHINE IV PRN ×2 (11:52→20:22)
--- NOTE | 2018-05-13 12:43 | Progress Note ---
Assessment and Plan - Patient Problems (1) Acute on chronic systolic heart failure Current Visit: No Status: Acute Plan to address problem: Continue medical therapy, including IV inotropic therapy. Subjective Date of service: 05/13/18 Interval history: Patient looks and feels better, shortness of breath improved on heart failure therapy. Objective Vital Signs Temp Pulse Resp BP BP Pulse Ox 05/13/18 11:26 98.5 F 53 L 18 95/42 98 05/13/18 09:53 70 05/13/18 09:52 70 05/13/18 09:51 70 05/13/18 09:50 70 99 05/13/18 08:10 97.4 F L 63 20 112/54 93 05/13/18 06:50 60 110/54 05/13/18 04:27 98.5 F 62 12 110/54 88 05/13/18 03:00 51 L 05/12/18 23:15 98.0 F 61 16 110/40 92 05/12/18 22:50 53 L 110/56 05/12/18 19:37 100 05/12/18 19:17 98.1 F 53 L 16 116/56 94 05/12/18 15:51 54 L 18 103/53 05/12/18 15:00 53 L 05/12/18 14:41 53 L 110/91 05/12/18 14:40 53 L 110/91 05/12/18 13:20 98.3 F 53 L 18 110/91 100 - Physical Examination General: No Apparent Distress HEENT: Positive: PERRL Neck: Positive: neck supple Cardiac: Positive: Reg Rate and Rhythm Lungs: Positive: Decreased Breath Sounds Neuro: Positive: Grossly Intact Extremities: Absent: edema - Labs and Meds CBC 05/13/18 Range/Units 05:35 WBC 2.7 L (4.5-11.0) K/mm3 RBC 3.17 L (3.65-5.03) M/mm3 Hgb 10.8 (10.1-14.3) gm/dl Hct 32.8 (30.3-42.9) % Plt Count 160 (140-440) K/mm3 Lymph # 0.2 L (1.2-5.4) K/mm3 [place] # 0.3 (0.0-0.8) K/mm3 Eos # 0.0 (0.0-0.4) K/mm3 Baso # 0.0 (0.0-0.1) K/mm3 Comprehensive Metabolic Panel 05/13/18 Range/Units 05:35 Sodium 142 (137-145) mmol/L Potassium 4.1 (3.6-5.0) mmol/L Chloride 103.9 (98-107) mmol/L Carbon Dioxide 32 H (22-30) mmol/L BUN 16 (7-17) mg/dL Creatinine 0.9 (0.7-1.2) mg/dL Glucose 112 H (65-100) mg/dL Calcium 8.0 L (8.4-10.2) mg/dL
[2018-05-13] MEDS: ZOFRAN IV PRN ×2 (14:13→22:04)
--- NOTE | 2018-05-13 16:29 | Progress Note ---
Assessment and Plan Assessment and plan: Patient is 67-year-old female patient with significant past medical history of coronary artery disease status post PCI, CHF, AICD placement was admitted through emergency room with worsening shortness of breath left lower lobe pneumonia, patient is on empiric antibiotics and cardiac medications --Left lower lobe pneumonia; continue oxygen titrated O2 sats more than 90%, IV antibiotics, follow cultures, cough medicine, antihistamines supportive care\ --Acute on chronic hypoxic respiratory failure: wean 02 to home 2liters --Severe ischemic cardiomyopathy; ejection fraction 10-15%, Continue anti-fa ilure medications, input output monitoring, low sodium diet, Fluid restrictions --Status post AICD; stable, closely monitor --Acute on chronic systolic heart failure: Cardiology started Milrinone IV drip --Chest pain; serial cardiac enzymes negative recent workup no acute changes noted in March 2018, as well as heart cath Coronary angiogram ; March 2018 /Procedures [place] vessel disease with 100% occlusion of LAD 100% occlusion of proximal right coronary artery, Patent graft to LAD patent graft to OM and PDA Ejection fraction 10-15%/dilated cardiomyopathy Continue aspirin and Plavix and beta blockers and nitrates and supportive care Stress test canceled, consider cardiology evaluation is needed --History of depression; continue home antidepressant medications --DVT prophylaxis; Lovenox Will closely monitor the patient and adjust management as needed Monitor on primacor IV drip History Interval history: Patient was seen and examined. Follow-up on current diagnosis of SOB. Overnight uneventful. Patient denies any chest pain, nausea/vomiting or severe headaches. Imaging, nursing note, chart, labs and old chart reviewed. Discussed with patient. Hospitalist Physical - Physical exam Narrative exam: Gen: WDWN, NAD, Awake, Alert, Orientated HEENT: NCAT, EOMI, PERRL, OP Clear Neck: supple, no adenopathy, no thyromegaly, no JVD CVS/Heart: RRR, normal S1S2, pulses present bilaterally Chest/Lungs: diminished bs bilateral, Symmetrical chest expansion, good air entry bilaterally GI/Abdomen: soft, NTND, good bowel sounds, no guarding or rebound /Bladder: no suprapubic tenderness, no CVA or paraspinal tenderness Extermity/Skin: no c/c/e, no obvious rash MSK: FROM x 4 Neuro: CN 2-12 grossly intact, no new focal deficits Psych: calm - Constitutional Vitals: Temp Pulse Resp BP Pulse Ox 98.5 F 53 L 18 109/52 98 05/13/18 11:26 05/13/18 11:26 05/13/18 11:26 05/13/18 14:12 05/13/18 11:26 General appearance: Present: well-nourished Results - Labs CBC & Chem 7: 05/13/18 05:35 05/13/18 05:35 Labs: Laboratory Last Values WBC 2.7 K/mm3 (4.5-11.0) L 05/13/18 05:35 RBC 3.17 M/mm3 (3.65-5.03) L 05/13/18 05:35 Hgb 10.8 gm/dl (10.1-14.3) 05/13/18 05:35 Hct 32.8 % (30.3-42.9) 05/13/18 05:35 MCV 104 fl (79-97) H 05/13/18 05:35 MCH 34 pg (28-32) H 05/13/18 05:35 MCHC 33 % (30-34) 05/13/18 05:35 RDW 15.4 % (13.2-15.2) H 05/13/18 05:35 Plt Count 160 K/mm3 (140-440) 05/13/18 05:35 Lymph % (Auto) 6.1 % (13.4-35.0) L 05/13/18 05:35 [place] % (Auto) 10.6 % (0.0-7.3) H 05/13/18 05:35 Eos % (Auto) 0.5 % (0.0-4.3) 05/13/18 05:35 Baso % (Auto) 0.6 % (0.0-1.8) 05/13/18 05:35 Lymph # 0.2 K/mm3 (1.2-5.4) L 05/13/18 05:35 [place] # 0.3 K/mm3 (0.0-0.8) 05/13/18 05:35 Eos # 0.0 K/mm3 (0.0-0.4) 05/13/18 05:35 Baso # 0.0 K/mm3 (0.0-0.1) 05/13/18 05:35 Seg Neutrophils % 82.2 % (40.0-70.0) H 05/13/18 05:35 Seg Neutrophils # 2.2 K/mm3 (1.8-7.7) 05/13/18 05:35 PT 14.4 Sec. (12.2-14.9) 05/09/18 23:13 INR 1.08 (0.87-1.13) 05/09/18 23:13 APTT 25.4 Sec. (24.2-36.6) 05/09/18 23:13 Sodium 142 mmol/L (137-145) 05/13/18 05:35 Potassium 4.1 mmol/L (3.6-5.0) 05/13/18 05:35 Chloride 103.9 mmol/L (98-107) 05/13/18 05:35 Carbon Dioxide 32 mmol/L (22-30) H 05/13/18 05:35 Anion Gap 10 mmol/L 05/13/18 05:35 BUN 16 mg/dL (7-17) 05/13/18 05:35 Creatinine 0.9 mg/dL (0.7-1.2) 05/13/18 05:35 Estimated GFR > 60 ml/min 05/13/18 05:35 BUN/Creatinine Ratio 18 % 05/13/18 05:35 Glucose 112 mg/dL (65-100) H 05/13/18 05:35 Calcium 8.0 mg/dL (8.4-10.2) L 05/13/18 05:35 Magnesium 1.90 mg/dL (1.7-2.3) 05/11/18 04:33 Total Creatine Kinase 172 units/L (30-135) H 05/10/18 12:33 CK-MB (CK-2) 2.6 ng/mL (0.0-4.0) 05/10/18 12:33 CK-MB (CK-2) Rel Index 1.5 (0-4) 05/10/18 12:33 Troponin T 0.011 ng/mL (0.00-0.029) 05/10/18 12:33 NT-Pro-B Natriuret Pep 5118 pg/mL (0-900) H 05/09/18 23:13
[2018-05-14] MEDS: ZOFRAN IV PRN ×2 (04:10→13:28)
[2018-05-14] MEDS: MILRINONE-D5W 20 MG/100 ML 20 MG/100 ML BAG IV SCH ×2 (04:10→19:14)
[2018-05-14] MEDS: LASIX IV SCH ×2 (05:44→17:58)
[2018-05-14] MEDS: APRESOLINE PO SCH ×3 (05:44→22:50)
[2018-05-14] MEDS: NITRO-BID 2% TP SCH ×4 (05:45→19:07)
[2018-05-14] MEDS: MORPHINE IV PRN (09:26)
[2018-05-14] MEDS: ALDACTONE PO SCH (09:27)
[2018-05-14] MEDS: PLAVIX PO SCH (09:27)
[2018-05-14] MEDS: IMDUR PO SCH (09:27)
[2018-05-14] MEDS: ASPIRIN PO SCH (09:27)
[2018-05-14] MEDS: COREG PO SCH ×2 (09:27→23:00)
[2018-05-14] MEDS: LEVAQUIN PO SCH (09:27)
[2018-05-14] MEDS: WELLBUTRIN SR PO SCH ×2 (09:28→22:55)
[2018-05-14] MEDS: ZOLOFT PO SCH (09:28)
[2018-05-14] MEDS: HEPARIN SUB-Q SCH (09:36)
--- NOTE | 2018-05-14 10:27 | Progress Note ---
Addendum entered and electronically signed by HARESH LING MD 05/14/18 10:52: Chronic chest pain - no ECG changes Recent ischemic evaluation with cardiac cath Paroxysmal atrial fibrillation on tele and 12 lead ECG Recommendations: Start anticoagulation with eliquis for VTE prophylaxis Monitor for signs of bleeding Original Note: Assessment and Plan Chest pain Acute systolic heart failure Hx of coronary artery disease cardiac cath 03/2018 revealed patent SVG to LAD, SVG to OM and SVG to PDA, Patent diagonal stent, LVEF 10-15%. Hx of Ischemic cardiomyopathy, ejection fraction 10-15%. Presence of single chamber cardiac defibrillator underlying atrial fibrillation on ECG Tobacco abuse Subjective Date of service: 05/14/18 Interval history: Patient complains of headaches and intermittent chest pain. Stat EKG obtain and reviewed: ventricular paced rhythm with underlying atrial fibrillation. No acute ischemic changes Objective Vital Signs Temp Pulse Pulse Resp BP Pulse Ox 05/14/18 09:41 95 05/14/18 09:35 59 L 05/14/18 09:27 59 L 05/14/18 08:07 97.6 F 54 L 18 122/65 99 05/14/18 05:45 58 L 101/61 05/14/18 05:44 58 L 101/61 05/14/18 04:24 98.0 F 58 L 17 101/61 100 05/14/18 03:00 58 L 05/14/18 00:33 98.6 F 58 L 17 120/56 95 05/13/18 22:12 67 102/76 05/13/18 22:01 67 102/76 05/13/18 22:00 61 05/13/18 20:57 100 05/13/18 20:13 97.6 F 57 L 17 120/60 99 05/13/18 17:12 59 L 05/13/18 16:43 97.7 F 51 L 18 104/57 97 05/13/18 15:00 60 05/13/18 14:12 109/52 05/13/18 11:26 98.5 F 53 L 18 95/42 98 - Physical Examination General: No Apparent Distress HEENT: Positive: PERRL Cardiac: Positive: Other (paced) Lungs: Positive: Decreased Breath Sounds Neuro: Positive: Grossly Intact Extremities: Absent: edema
[2018-05-14] MEDS ORDERED: ASPIRIN PO SCH (10:54)
--- NOTE | 2018-05-14 18:14 | Progress Note ---
Assessment and Plan Assessment and plan: Patient is 67-year-old woman with a history of coronary artery disease status post PCI, CHF, AICD placement was admitted through emergency room with worsening shortness of breath left lower lobe pneumonia, patient is on empiric antibiotics and cardiac medications --Left lower lobe pneumonia; continue oxygen titrated O2 sats more than 90%, IV antibiotics, follow cultures, cough medicine, antihistamines supportive care --Acute on chronic hypoxic respiratory failure: wean 02 to home 2liters --P. Afib: start anticoagulation with close monitoring for bleeding. --Severe ischemic cardiomyopathy; ejection fraction 10-15%, Continue anti- failure medications, input output monitoring, low sodium diet, Fluid restrictions --Status post AICD; stable, closely monitor --Acute on chronic systolic heart failure: Cardiology started Milrinone IV drip --Chest pain; serial cardiac enzymes negative, recent workup no acute changes noted in March 2018, as well as heart cath: Coronary angiogram ; March 2018 /Procedures [place] vessel disease with 100% occlusion of LAD, 100% occlusion of proximal right coronary artery, Patent graft to LAD patent graft to OM and PDA, Ejection fraction 10-15%/dilated cardiomyopathy, --Continue aspirin and Plavix and beta blockers and nitrates and supportive care, Stress test canceled, --History of depression; continue home antidepressant medications --DVT prophylaxis; Lovenox --Hypothyroidism suspected: get free t4, total t3 Will closely monitor the patient and adjust management as needed Monitor on primacor IV drip History Interval history: Patient was seen and examined. Follow-up on current diagnosis of SOB. Overnight uneventful. Patient denies any chest pain, nausea/vomiting or severe headaches. Imaging, nursing note, chart, labs and old chart reviewed. Discussed with patient. Hospitalist Physical - Physical exam Narrative exam: Gen: WDWN, NAD, Awake, Alert, Orientated HEENT: NCAT, EOMI, PERRL, OP Clear Neck: supple, no adenopathy, no thyromegaly, no JVD CVS/Heart: RRR, normal S1S2, pulses present bilaterally Chest/Lungs: diminished bs bilateral, Symmetrical chest expansion, good air entry bilaterally GI/Abdomen: soft, NTND, good bowel sounds, no guarding or rebound /Bladder: no suprapubic tenderness, no CVA or paraspinal tenderness Extermity/Skin: no c/c/e, no obvious rash MSK: FROM x 4 Neuro: CN 2-12 grossly intact, no new focal deficits Psych: calm - Constitutional Vitals: Temp Pulse Resp BP Pulse Ox 97.6 F 50 L 18 100/51 98 05/14/18 08:07 05/14/18 13:27 05/14/18 08:07 05/14/18 13:35 05/14/18 12:12 General appearance: Present: well-nourished Results - Labs CBC & Chem 7: 05/13/18 05:35 05/13/18 05:35 Labs: Laboratory Last Values WBC 2.7 K/mm3 (4.5-11.0) L 05/13/18 05:35 RBC 3.17 M/mm3 (3.65-5.03) L 05/13/18 05:35 Hgb 10.8 gm/dl (10.1-14.3) 05/13/18 05:35 Hct 32.8 % (30.3-42.9) 05/13/18 05:35 MCV 104 fl (79-97) H 05/13/18 05:35 MCH 34 pg (28-32) H 05/13/18 05:35 MCHC 33 % (30-34) 05/13/18 05:35 RDW 15.4 % (13.2-15.2) H 05/13/18 05:35 Plt Count 160 K/mm3 (140-440) 05/13/18 05:35 Lymph % (Auto) 6.1 % (13.4-35.0) L 05/13/18 05:35 [place] % (Auto) 10.6 % (0.0-7.3) H 05/13/18 05:35 Eos % (Auto) 0.5 % (0.0-4.3) 05/13/18 05:35 Baso % (Auto) 0.6 % (0.0-1.8) 05/13/18 05:35 Lymph # 0.2 K/mm3 (1.2-5.4) L 05/13/18 05:35 [place] # 0.3 K/mm3 (0.0-0.8) 05/13/18 05:35 Eos # 0.0 K/mm3 (0.0-0.4) 05/13/18 05:35 Baso # 0.0 K/mm3 (0.0-0.1) 05/13/18 05:35 Seg Neutrophils % 82.2 % (40.0-70.0) H 05/13/18 05:35 Seg Neutrophils # 2.2 K/mm3 (1.8-7.7) 05/13/18 05:35 PT 14.4 Sec. (12.2-14.9) 05/09/18 23:13 INR 1.08 (0.87-1.13) 05/09/18 23:13 APTT 25.4 Sec. (24.2-36.6) 05/09/18 23:13 Sodium 142 mmol/L (137-145) 05/13/18 05:35 Potassium 4.1 mmol/L (3.6-5.0) 05/13/18 05:35 Chloride 103.9 mmol/L (98-107) 05/13/18 05:35 Carbon Dioxide 32 mmol/L (22-30) H 05/13/18 05:35 Anion Gap 10 mmol/L 05/13/18 05:35 BUN 16 mg/dL (7-17) 05/13/18 05:35 Creatinine 0.9 mg/dL (0.7-1.2) 05/13/18 05:35 Estimated GFR > 60 ml/min 05/13/18 05:35 BUN/Creatinine Ratio 18 % 05/13/18 05:35 Glucose 112 mg/dL (65-100) H 05/13/18 05:35 Calcium 8.0 mg/dL (8.4-10.2) L 05/13/18 05:35 Magnesium 1.90 mg/dL (1.7-2.3) 05/11/18 04:33 Total Creatine Kinase 172 units/L (30-135) H 05/10/18 12:33 CK-MB (CK-2) 2.6 ng/mL (0.0-4.0) 05/10/18 12:33 CK-MB (CK-2) Rel Index 1.5 (0-4) 05/10/18 12:33 Troponin T 0.011 ng/mL (0.00-0.029) 05/10/18 12:33 NT-Pro-B Natriuret Pep 5118 pg/mL (0-900) H 05/09/18 23:13 TSH 6.180 mlU/mL (0.270-4.200) H 05/14/18 11:30
--- NOTE | 2018-05-14 19:47 | XRay Report ---
FINAL REPORT EXAM: XR ABDOMEN 1V AP HISTORY: n/v TECHNIQUE: Frontal view of the abdomen. Comparison: None FINDINGS: The pelvis is not imaged. The bowel gas pattern in the abdomen is nonspecific. There is no definite evidence of pneumoperitoneum. The bony structures are notable for spondylitic change of the lumbar spine. IMPRESSION: 1. Nonspecific bowel gas pattern. If there is a clinical concern for an acute intra-abdominal process, CT abdomen and pelvis would be h elpful.
[2018-05-14] MEDS: ELIQUIS PO SCH (22:55)
[2018-05-15] MEDS: ZOFRAN IV PRN ×2 (04:30→09:02)
[2018-05-15] MEDS: APRESOLINE PO SCH ×3 (06:06→22:22)
[2018-05-15] MEDS: LASIX IV SCH ×2 (06:07→18:18)
[2018-05-15] MEDS: NITRO-BID 2% TP SCH ×2 (06:07→10:37)
[2018-05-15] MEDS ORDERED: PEPCID PO SCH (10:00)
--- NOTE | 2018-05-15 10:35 | Progress Note ---
Addendum entered and electronically signed by JUWAN HOPE MD 05/15/18 14:09: Medical therapy for coronary artery disease, ischemic cardiomyopathy, chronic le ft ventricular systolic dysfunction and paroxysmal atrial fibrillation. Patient's symptoms have improved following optimal treatment of fluid overload. Original Note: Assessment and Plan Chest pain Acute systolic heart failure Hx of coronary artery disease cardiac cath 03/2018 revealed patent SVG to LAD, SVG to OM and SVG to PDA, Patent diagonal stent, LVEF 10-15%. Hx of Ischemic cardiomyopathy, ejection fraction 10-15%. Presence of single chamber cardiac defibrillator underlying atrial fibrillation on ECG. Initiated on eliquis for oral anticoagulation therapy. Tobacco abuse Subjective Date of service: 05/15/18 Interval history: Complains of headaches. Patient also reports nausea with vomiting this morning. Family member at bedside. Objective Vital Signs Temp Pulse Pulse Resp BP BP Pulse Ox 05/15/18 07:56 98.0 F 52 L 18 112/66 100 05/15/18 06:06 68 100/68 05/15/18 04:29 98 F 68 18 100/68 99 05/15/18 04:15 98.0 F 50 L 18 106/61 99 05/15/18 03:00 68 05/14/18 23:04 98.0 F 61 18 119/54 99 05/14/18 23:00 53 L 110/60 05/14/18 22:50 64 120/61 05/14/18 22:00 64 98 05/14/18 19:51 98.9 F 64 18 120/61 98 05/14/18 19:07 57 L 05/14/18 16:46 56 L 121/60 98 05/14/18 13:35 100/51 05/14/18 13:27 50 L 05/14/18 12:12 46 L 100/54 98 - Physical Examination General: No Apparent Distress HEENT: Positive: PERRL Cardiac: Positive: Other (paced) Lungs: Positive: Decreased Breath Sounds Neuro: Positive: Grossly Intact Extremities: Absent: edema
[2018-05-15] MEDS: TYLENOL PO PRN ×2 (10:36→22:11)
[2018-05-15] MEDS: IMDUR PO SCH (10:36)
[2018-05-15] MEDS: ZOLOFT PO SCH (10:36)
[2018-05-15] MEDS: HALFPRIN EC PO SCH (10:36)
[2018-05-15] MEDS: COREG PO SCH ×2 (10:36→22:23)
[2018-05-15] MEDS: ALDACTONE PO SCH (10:36)
[2018-05-15] MEDS: ELIQUIS PO SCH ×2 (10:36→22:11)
[2018-05-15] MEDS: LEVAQUIN PO SCH (10:36)
[2018-05-15] MEDS: PLAVIX PO SCH (10:37)
[2018-05-15] MEDS: WELLBUTRIN SR PO SCH ×2 (10:37→22:11)
[2018-05-15] MEDS: REGLAN IV PRN (12:29)
--- NOTE | 2018-05-15 15:42 | Gastroenterology Consultation ---
Addendum entered and electronically signed by LATISHA ZAPATA MD 05/15/18 18:02: pt seen and examined, chart reviewed, consult below reviewed - pt presents w/ nausea, vomiting, epigastric pain - denies other GI symptoms vss p.e.: nad abd: soft - EGD in am - other rec as outlined below Original Note: History of Present Illness - Reason for Consult Consult date: 05/15/18 N/V Requesting physician: RONNIE RUBIN - History of Present Illness Patient is a 67 y/o female with PMH of HTN, CVA, CAD, CHF (s/p AICD), and COPD who presented to ED with c/o CP. She was admitted and currently being treated for pneumonia, acute on chronic hypoxic respiratory failure, P. A.fib (on Eliquis), acute systolic heart failure, and suspected hypothyroidism. GI has been consulted for N/V. This afternoon patient was resting in bed w/o acute distress. Report N/V x ~1 week with last episode this am. Admits to chronic periumbilical pain. Symptoms are exacerbated with eating. Denies fever, wt loss, dysphagia, signs of bleeding, diarrhea, or constipation. Takes daily ASA at home. States she has a hx of PUD but is unsure if she has ever had an EGD. Past History Past Medical History: CAD, COPD, heart failure, hypertension, stroke Past Surgical History: Other (s/p AICD) Social history: other (former smoker). denies: alcohol abuse Medications and Allergies Allergies Allergy/AdvReac Type Severity Reaction Status Date / Time lisinopril Allergy Anaphylaxis Verified 02/24/18 09:15 Penicillins Allergy Seizure Verified 02/24/18 09:15 Sulfa (Sulfonamide AdvReac Hives Verified 02/24/18 09:15 Antibiotics) Home Medications Medication Instructions Recorded Confirmed Last Taken Type Aspirin [Adult Aspirin] 81 mg PO DAILY 02/24/18 05/10/18 05/09/18 History Clopidogrel Bisulfate [Plavix] 75 mg PO QDAY 02/24/18 05/10/18 05/09/18 History Duloxetine HCl 40 mg PO QDAY 02/24/18 05/10/18 05/09/18 History Spironolactone [Aldactone] 25 mg PO QDAY 02/24/18 05/10/18 05/09/18 History buPROPion SR [Wellbutrin SR] 150 mg PO BID 02/24/18 05/10/18 05/09/18 History Albuterol Sulfate [Ventolin HFA] 1 puff IH Q6H PRN 30 Days 03/03/18 05/10/18 05/09/18 Rx [email or web address] Buspirone HCl [busPIRone] 15 mg PO BID 05/10/18 05/10/18 05/09/18 History Carvedilol 12.5 mg PO BID 05/10/18 05/10/18 05/09/18 History Cyclobenzaprine [Flexeril] 10 mg PO TID PRN 05/10/18 05/10/18 05/09/18 History Diphenhydramine HCl [Allergy 25 mg PO DAILY 05/10/18 05/10/18 05/09/18 History Relief] Furosemide [Lasix] 80 mg PO DAILY 05/10/18 05/10/18 05/09/18 History ISOSORBIDE MONOnitrate [Imdur ER] 60 mg PO QDAY 05/10/18 05/10/18 05/09/18 History LORazepam [Ativan] 0.5 mg PO Q6H PRN 05/10/18 05/10/18 05/09/18 History Sertraline HCl [Zoloft] 50 mg PO DAILY 05/10/18 05/10/18 05/09/18 History hydrALAZINE [Apresoline] 25 mg PO Q8HR 05/10/18 05/10/18 05/09/18 History Active Meds: Active Medications Acetaminophen (Tylenol) 650 mg PO Q4H PRN PRN Reason: Fever >101 Last Admin: 05/15/18 10:36 Dose: 650 mg Documented by: Albuterol (Proventil) 2.5 mg IH Q4H PRN PRN Reason: Shortness Of Breath Apixaban (Eliquis) 5 mg PO Q12HR [facility]; Protocol Last Admin: 05/15/18 10:36 Dose: 5 mg Documented by: Aspirin (Halfprin Ec) 81 mg PO QDAY [facility] Last Admin: 05/15/18 10:36 Dose: 81 mg Documented by: Bupropion HCl (Wellbutrin Sr) 150 mg PO BID [facility] Last Admin: 05/15/18 10:37 Dose: 150 mg Documented by: Carvedilol (Coreg) 12.5 mg PO BID [facility] Last Admin: 05/15/18 10:36 Dose: 12.5 mg Documented by: Famotidine (Pepcid) 20 mg PO QDAY [facility] Last Admin: 05/15/18 10:36 Dose: 20 mg Documented by: Furosemide (Lasix) 40 mg IV 0600,1800 [facility] Last Admin: 05/15/18 06:07 Dose: Not Given Documented by: Hydralazine HCl (Apresoline) 25 mg PO Q8HR [facility] Last Admin: 05/15/18 13:54 Dose: 25 mg Documented by: Levofloxacin (Levaquin) 750 mg PO Q24HR [facility] Last Admin: 05/15/18 10:36 Dose: 750 mg Documented by: Magnesium Hydroxide (Milk Of Magnesia) 30 ml PO Q4H PRN PRN Reason: Constipation Last Admin: 05/13/18 17:11 Dose: 30 ml Documented by: Metoclopramide HCl (Reglan) 10 mg IV Q8H PRN PRN Reason: Nausea And Vomiting Last Admin: 05/15/18 12:29 Dose: 10 mg Documented by: Morphine Sulfate (Morphine) 2 mg IV Q3H PRN PRN Reason: Pain, Moderate (4-6) Last Admin: 05/14/18 09:26 Dose: 2 mg Documented by: Nitroglycerin (Nitrostat) 0.4 mg SL .Q5MIN PRN PRN Reason: Chest Pain Last Admin: 05/10/18 03:29 Dose: 0.4 mg Documented by: Ondansetron HCl (Zofran) 4 mg IV Q8H PRN PRN Reason: Nausea And Vomiting Last Admin: 05/15/18 09:02 Dose: 4 mg Documented by: Sertraline HCl (Zoloft) 50 mg PO DAILY [facility] Last Admin: 05/15/18 10:36 Dose: 50 mg Documented by: Spironolactone (Aldactone) 25 mg PO QDAY [facility] Last Admin: 05/15/18 10:36 Dose: 25 mg Documented by: medications reviewed/updated as required Review of Systems - Review of Systems All systems: negative Gastrointestinal: abdominal pain (periumbilical), nausea, vomiting Exam - Constitutional Vital Signs: Temp Pulse Resp BP Pulse Ox 97.9 F 48 L 18 132/67 98 05/15/18 11:02 05/15/18 11:02 05/15/18 11:02 05/15/18 11:02 05/15/18 11:02 General appearance: no acute distress - Respiratory Respiratory: bilateral: diminished - Cardiovascular Rhythm: other (bradycardia) - Gastrointestinal General gastrointestinal: Present: soft, tender, non-distended, normal bowel sounds - Neurologic Neurological: alert and oriented x3 - Labs CBC & Chem 7: 05/13/18 05:35 05/13/18 05:35 Lab Results: Laboratory Results - last 24 hr 05/14/18 19:22 Free T4 1.13 Assessment and Plan 1.N/V 2.abdominal pain -afebrile -WBC WNL -H/H WNL-no active sign of bleeding -patient reports chronic periumbilical pain with recent onset of N/V -symptoms worse with PO intake -etiology-possible peptic vs GB vs other -will schedule EGD tomorrow for further evaluation -start on daily PPI -abd U/S -hepatic panel in am -continue supportive care -will follow 3.Chest pain-cardiology following with recommendations for continued medical therapy 4.Acute systolic heart failure 5.Hx of coronary artery disease 6.Hx of Ischemic cardiomyopathy, underlying Afib (s/p AIDC; on Eliquis; EF 10- 15%) 7.pneumonia 8.acute on chronic hypoxic respiratory failure
[2018-05-15] MEDS: PROTONIX IV SCH (18:18)
[2018-05-15] MEDS: MILK OF MAGNESIA PO PRN (18:21)
[2018-05-16] MEDS: REGLAN IV PRN (06:54)
[2018-05-16] MEDS: LASIX IV SCH ×2 (06:54→18:00)
[2018-05-16] MEDS: APRESOLINE PO SCH ×3 (06:55→21:01)
[2018-05-16 07:07] LABS: Alanine Aminotransferase 15 units/L (7-56); Albumin 2.1 g/dL (3.9-5)
[2018-05-16 07:08] LABS: Bilirubin,Direct < 0.2 mg/dL (0-0.2)
--- NOTE | 2018-05-16 09:31 | Progress Note ---
Assessment and Plan Epigastric pain with nausea vomiting Acute systolic heart failure Hx of coronary artery disease cardiac cath 03/2018 revealed patent SVG to LAD, SVG to OM and SVG to PDA, Patent diagonal stent, LVEF 10-15%. Hx of Ischemic cardiomyopathy, ejection fraction 10-15%. Presence of single chamber cardiac defibrillator underlying paroxysmal atrial fibrillation on ECG. Initiated on eliquis for oral anticoagulation therapy. Tobacco abuse Continue medical therapy for coronary artery disease, ischemic cardiomyopathy, and paroxysmal atrial fibrillation. Stable cardiac recinos. Subjective Date of service: 05/16/18 Interval history: Complains of headaches. Patient also reports nausea with no vomiting. Objective Vital Signs Temp Pulse Resp BP Pulse Ox 05/16/18 08:06 98.0 F 51 L 20 108/58 98 05/16/18 06:55 66 122/65 05/16/18 05:57 97.3 F L 50 L 17 122/65 99 05/16/18 03:35 58 L 05/16/18 00:46 97.9 F 17 89/44 05/15/18 22:23 52 L 115/72 05/15/18 22:22 52 L 115/72 05/15/18 22:21 115/72 05/15/18 20:30 98.0 F 49 L 17 100/45 96 05/15/18 20:28 98 05/15/18 15:32 97.3 F L 50 L 24 110/56 100 05/15/18 11:02 97.9 F 48 L 18 132/67 98 05/15/18 10:00 99 - Physical Examination General: No Apparent Distress HEENT: Positive: PERRL Cardiac: Positive: Reg Rate and Rhythm, Other (paced) Lungs: Positive: Decreased Breath Sounds Neuro: Positive: Grossly Intact Extremities: Absent: edema - Labs and Meds Cardiac Enzymes 05/16/18 Range/Units 06:21 AST 23 (5-40) units/L Comprehensive Metabolic Panel 05/16/18 Range/Units 06:21 Direct Bilirubin < 0.2 (0-0.2) mg/dL AST 23 (5-40) units/L ALT 15 (7-56) units/L Alkaline Phosphatase 72 (35-129) units/L Total Protein 4.7 L (6.3-8.2) g/dL Albumin 2.1 L (3.9-5) g/dL
[2018-05-16] MEDS: PROTONIX IV SCH (09:43)
[2018-05-16] MEDS: WELLBUTRIN SR PO SCH ×2 (10:00→21:00)
[2018-05-16] MEDS: ALDACTONE PO SCH (10:00)
[2018-05-16] MEDS: ZOLOFT PO SCH (10:00)
[2018-05-16] MEDS: COREG PO SCH ×2 (10:00→21:00)
[2018-05-16] MEDS: LEVAQUIN PO SCH (10:00)
[2018-05-16] MEDS: ELIQUIS PO SCH ×2 (10:00→21:00)
[2018-05-16] MEDS: HALFPRIN EC PO SCH (10:00)
--- NOTE | 2018-05-16 12:23 | Progress Note ---
Assessment and Plan Assessment and plan: Patient is 67-year-old woman with a history of coronary artery disease status post PCI, CHF, AICD placement was admitted through emergency room with worsening shortness of breath left lower lobe pneumonia, patient is on empiric antibiotics and cardiac medications --Left lower lobe pneumonia; continue oxygen titrated O2 sats more than 90%, IV antibiotics, follow cultures, cough medicine, antihistamines supportive care --Acute on chronic hypoxic respiratory failure: wean 02 to home 2liters --P. Afib: start anticoagulation with close monitoring for bleeding. --Severe ischemic cardiomyopathy; ejection fraction 10-15%, Continue anti- failure medications, input output monitoring, low sodium diet, Fluid restrictions --Status post AICD; stable, closely monitor --Acute on chronic systolic heart failure: Cardiology started Milrinone IV drip --Chest pain; serial cardiac enzymes negative, recent workup no acute changes noted in March 2018, as well as heart cath: Coronary angiogram ; March 2018 /Procedures [place] vessel disease with 100% occlusion of LAD, 100% occlusion of proximal right coronary artery, Patent graft to LAD patent graft to OM and PDA, Ejection fraction 10-15%/dilated cardiomyopathy, --Continue aspirin and Plavix and beta blockers and nitrates and supportive care, Stress test canceled, --History of depression; continue home antidepressant medications --DVT prophylaxis; Lovenox --Hypothyroidism suspected: get free t4, total t3 Will closely monitor the patient and adjust management as needed EGD today, pt was having n/v with epigastric abd pains then gives a history of recent stomach ulcer diagnosis at [facility]==>poor historian. History Interval history: Patient was seen and examined. Follow-up on current diagnosis of SOB. Overnight uneventful. Patient denies any chest pain, nausea/vomiting or severe headaches. Imaging, nursing note, chart, labs and old chart reviewed. Discussed with patient. Hospitalist Physical - Physical exam Narrative exam: Gen: WDWN, NAD, Awake, Alert, Orientated HEENT: NCAT, EOMI, PERRL, OP Clear Neck: supple, no adenopathy, no thyromegaly, no JVD CVS/Heart: RRR, normal S1S2, pulses present bilaterally Chest/Lungs: diminished bs bilateral, Symmetrical chest expansion, good air entry bilaterally GI/Abdomen: soft, NTND, good bowel sounds, no guarding or rebound /Bladder: no suprapubic tenderness, no CVA or paraspinal tenderness Extermity/Skin: no c/c/e, no obvious rash MSK: FROM x 4 Neuro: CN 2-12 grossly intact, no new focal deficits Psych: calm - Constitutional Vitals: Temp Pulse Resp BP Pulse Ox 98.0 F 51 L 20 108/58 98 05/16/18 08:06 05/16/18 08:06 05/16/18 11:31 05/16/18 08:06 05/16/18 08:06 General appearance: Present: well-nourished Results - Labs CBC & Chem 7: 05/13/18 05:35 05/13/18 05:35 Labs: Laboratory Last Values WBC 2.7 K/mm3 (4.5-11.0) L 05/13/18 05:35 RBC 3.17 M/mm3 (3.65-5.03) L 05/13/18 05:35 Hgb 10.8 gm/dl (10.1-14.3) 05/13/18 05:35 Hct 32.8 % (30.3-42.9) 05/13/18 05:35 MCV 104 fl (79-97) H 05/13/18 05:35 MCH 34 pg (28-32) H 05/13/18 05:35 MCHC 33 % (30-34) 05/13/18 05:35 RDW 15.4 % (13.2-15.2) H 05/13/18 05:35 Plt Count 160 K/mm3 (140-440) 05/13/18 05:35 Lymph % (Auto) 6.1 % (13.4-35.0) L 05/13/18 05:35 [place] % (Auto) 10.6 % (0.0-7.3) H 05/13/18 05:35 Eos % (Auto) 0.5 % (0.0-4.3) 05/13/18 05:35 Baso % (Auto) 0.6 % (0.0-1.8) 05/13/18 05:35 Lymph # 0.2 K/mm3 (1.2-5.4) L 05/13/18 05:35 [place] # 0.3 K/mm3 (0.0-0.8) 05/13/18 05:35 Eos # 0.0 K/mm3 (0.0-0.4) 05/13/18 05:35 Baso # 0.0 K/mm3 (0.0-0.1) 05/13/18 05:35 Seg Neutrophils % 82.2 % (40.0-70.0) H 05/13/18 05:35 Seg Neutrophils # 2.2 K/mm3 (1.8-7.7) 05/13/18 05:35 PT 14.4 Sec. (12.2-14.9) 05/09/18 23:13 INR 1.08 (0.87-1.13) 05/09/18 23:13 APTT 25.4 Sec. (24.2-36.6) 05/09/18 23:13 Sodium 142 mmol/L (137-145) 05/13/18 05:35 Potassium 4.1 mmol/L (3.6-5.0) 05/13/18 05:35 Chloride 103.9 mmol/L (98-107) 05/13/18 05:35 Carbon Dioxide 32 mmol/L (22-30) H 05/13/18 05:35 Anion Gap 10 mmol/L 05/13/18 05:35 BUN 16 mg/dL (7-17) 05/13/18 05:35 Creatinine 0.9 mg/dL (0.7-1.2) 05/13/18 05:35 Estimated GFR > 60 ml/min 05/13/18 05:35 BUN/Creatinine Ratio 18 % 05/13/18 05:35 Glucose 112 mg/dL (65-100) H 05/13/18 05:35 Calcium 8.0 mg/dL (8.4-10.2) L 05/13/18 05:35 Magnesium 1.90 mg/dL (1.7-2.3) 05/11/18 04:33 Total Bilirubin 0.30 mg/dL (0.1-1.2) 05/16/18 06:21 Direct Bilirubin < 0.2 mg/dL (0-0.2) 05/16/18 06:21 AST 23 units/L (5-40) 05/16/18 06:21 ALT 15 units/L (7-56) 05/16/18 06:21 Alkaline Phosphatase 72 units/L (35-129) 05/16/18 06:21 Total Creatine Kinase 172 units/L (30-135) H 05/10/18 12:33 CK-MB (CK-2) 2.6 ng/mL (0.0-4.0) 05/10/18 12:33 CK-MB (CK-2) Rel Index 1.5 (0-4) 05/10/18 12:33 Troponin T 0.011 ng/mL (0.00-0.029) 05/10/18 12:33 NT-Pro-B Natriuret Pep 5118 pg/mL (0-900) H 05/09/18 23:13 Total Protein 4.7 g/dL (6.3-8.2) L 05/16/18 06:21 Albumin 2.1 g/dL (3.9-5) L 05/16/18 06:21 Albumin/Globulin Ratio 0.8 % 05/16/18 06:21 TSH 6.180 mlU/mL (0.270-4.200) H 05/14/18 11:30 Free T4 1.13 ng/dL (0.76-1.46) 05/14/18 19:22 Nutrition/Malnutrition Assess - Dietary Evaluation Nutrition/Malnutrition Findings: Nutrition Notes Start: 05/16/18 11:07 Freq: Status: Active Protocol: Document 05/16/18 11:07 CT (Rec: 05/16/18 12:19 CT [id number]) Co-Sign 05/16/18 11:07 LP Nutrition Notes Need for Assessment generated from: LOS Initial or Follow up Assessment Current Diagnosis Coronary Artery Disease Heart Failure Stroke Other Pertinent Diagnosis COPD Current Diet NPO Labs/Tests reviewed. Pertinent Medications reviewed. Height 5 ft 7 in Weight 92.9 kg [place] Body Weight (kg) 61.36 BMI 32.1 Weight Status Obese Subjective/Other Information RD screen for LOS. Pt stated she has not been eating consistently d/t n/v. She would like ONS when diet advances, stated she likes all flavors. Burn Absent Trauma Absent #1 Nutrition Diagnosis Inadequate oral intake Etiology N/V As Evidenced by Signs and Symptoms pt states she is unable to eat consistently d/t recurrent n/ v Is patient on ventilator? No Is Patient Ambulatory and/or Out of Bed No [place] 1795.368 Kcal/Kg value to use for calculation 17 Approximate Energy Requirements Using 1579 kcal/Kg Calculation Used for Recommendations Kcal/kg Additional Notes PRO: 77 - 92g PRO (1.0-1.2 g/ kg adj BW) adj BW = 170 lbs fluid: 1 ml/kcal Nutrition Intervention Goal #1 Diet Advancement Anticipated Discharge Needs: Cardiac Follow-Up By: 05/19/18 Additional Comments F/U: Diet Advancement
[2018-05-16] MEDS ORDERED: NACL 0.9% 1000 ML 1,000 ML IV SCH (13:00)
--- NOTE | 2018-05-16 15:40 | Ultrasound Report ---
ULTRASOUND ABDOMEN INDICATION: Nausea, vomiting. COMPARISON: 02/24/2018 CT. FINDINGS: Abdominal sonography again demonstrates small upper abdominal perihepatic and perisplenic ascites. Diffuse hepatic coarsening noted, mildly echogenic. No definite focal suspicious hepatic lesions or biliary dilatation, to the extent assessed. Somewhat prominent/enlarged hepatic veins/cardiac dysfunction. Small non-shadowing echogenicity along the gallbladder wall measuring up to 5 mm may represent polyp. Subtle pericholecystic ascitic fluid/lucency may be present. Gallbladder wall thickness exaggerated to 4.2 mm. CBD caliber is 4.8 mm. Homogenous spleen, 10 cm in length. Grossly normal imaged pancreas and nonaneurysmal abdominal aorta. IVC caliber approximately 3.3 cm. Slight increased renal cortical echogenicity bilaterally not excluded. No hydronephrosis. Right kidney is 10.4 x 4.8 x 5 cm with cortical thickness of 1.8 cm. Left kidney estimated at 10.3 x 5.4 x 6.5 cm with cortical thickness of 1.6 cm. CONCLUSION: No definite acute abdominal sonographic abnormality with various other findings as coarse/fatty liver, possible small gallbladder polyp, subtle underlying medical renal disease and evidence of cardiac dysfunction sonographically, as described. Please correlate. Thank you for the opportunity to participate in this patient's care.
--- NOTE | 2018-05-16 15:48 | Anesthesia Consultation ---
Anesthesia Consult and Med Hx Date of service: 05/16/18 - Airway Anesthetic Teeth Evaluation: Edentulous ROM Head & Neck: Adequate Mental/Hyoid Distance: Adequate Mallampati Class: Class I Intubation Access Assessment: Probably Good - Pulmonary Exam CTA: Yes (decreased BS bilaterally) - Cardiac Exam Cardiac Exam: RRR - Pre-Operative Health Status ASA Pre-Surgery Classification: ASA4 Proposed Anesthetic Plan: MAC - Pre-Anesthesia Comment Pre-Anesthesia Comments: Pt was admitted with LLL pneumonia and hypoxic respiratory failure. She has stabilized and presently is breathing at her baseline. SaO2 is 100% on 3l NC. Will sedate patient with etomidate. - Pulmonary Hx Smoking: Yes Hx Asthma: No COPD: Yes (home O2) Hx Pneumonia: Yes - Cardiovascular System Hx Hypertension: Yes Hx Coronary Artery Disease: Yes Hx Heart Attack/AMI: Yes (2008) Hx Angina: Yes Hx Cardia Arrhythmia: Yes (Paroxysmal A fib) Hx Pacemaker: Yes (AICD) - Central Nervous System CVA: Yes (2017 (L sided weakness)) - Endocrine Hx End Stage Renal Disease: No - Additional Comments Anesthesia Medical History Comments: Acute on chronic systolic failure. EF 10- 15%.Pt has AICD.She is s/p CABG and recent cath shows graft patency.She is stable per cardiology. pt has h/o peptic ulcer disease.
--- NOTE | 2018-05-16 15:55 | Anesthesia Day of Surgery ---
Anesthesia Day of Surgery - Day of Surgery Patient Examined: Yes Patient H&P Reviewed: Yes Patient is NPO: Yes Cardiac Clearance: Yes (stable per cardiology)
--- NOTE | 2018-05-16 15:58 | Discharge Summary ---
Providers - Providers Date of Admission: 05/10/18 00:40 Date of discharge: 05/16/18 Attending physician: RONNIE RUBIN 05/12/18 11:19 Consult to Physician [CONS] Routine Comment: Consulting Provider: JUWAN HOPE Physician Instructions: Reason For Exam: recurrent chest pain/h/o CAD 05/15/18 12:07 Consult to Physician [CONS] Routine Comment: Consulting Provider: LATISHA ZAPATA Physician Instructions: Reason For Exam: n/v, with peptic ulcer Primary care physician: MORRIS CARDENAS Hospitalization Condition: Stable Hospital course: Patient is 67-year-old woman with a history of coronary artery disease status post PCI, CHF, AICD placement was admitted through emergency room with worsening shortness of breath left lower lobe pneumonia, patient is on empiric antibiotics and cardiac medications --Left lower lobe pneumonia; continue oxygen titrated O2 sats more than 90%, IV antibiotics, follow cultures, cough medicine, antihistamines supportive care --Acute on chronic hypoxic respiratory failure: wean 02 to home 2liters --P. Afib: start anticoagulation with close monitoring for bleeding. --Severe ischemic cardiomyopathy; ejection fraction 10-15%, Continue anti- failure medications, input output monitoring, low sodium diet, Fluid restrictions --Status post AICD; stable, closely monitor --Acute on chronic systolic heart failure: Cardiology started Milrinone IV drip --Chest pain; serial cardiac enzymes negative, recent workup no acute changes noted in March 2018, as well as heart cath: Coronary angiogram ; March 2018 /Procedures [place] vessel disease with 100% occlusion of LAD, 100% occlusion of proximal right coronary artery, Patent graft to LAD patent graft to OM and PDA, Ejection fraction 10-15%/dilated cardiomyopathy, --Continue aspirin and Plavix and beta blockers and nitrates and supportive care, Stress test canceled, --History of depression; continue home antidepressant medications --DVT prophylaxis; Lovenox --Hypothyroidism suspected: get free t4, total t3 Will closely monitor the patient and adjust management as needed EGD today, pt was having n/v with epigastric abd pains then gives a history of recent stomach ulcer diagnosis at [facility]==>poor historian. Disposition: TO HOME OR SELFCARE Time spent for discharge: 32 minutes Core Measure Documentation - Palliative Care Palliative Care/ Comfort Measures: Not Applicable - Core Measures Any of the following diagnoses?: none Exam - Physical Exam Narrative exam: Gen: WDWN, NAD, Awake, Alert, Orientated HEENT: NCAT, EOMI, PERRL, OP Clear Neck: supple, no adenopathy, no thyromegaly, no JVD CVS/Heart: RRR, normal S1S2, pulses present bilaterally Chest/Lungs: diminished bs bilateral, Symmetrical chest expansion, good air entry bilaterally GI/Abdomen: soft, NTND, good bowel sounds, no guarding or rebound /Bladder: no suprapubic tenderness, no CVA or paraspinal tenderness Extermity/Skin: no c/c/e, no obvious rash MSK: FROM x 4 Neuro: CN 2-12 grossly intact, no new focal deficits Psych: calm - Constitutional Vitals: Temp Pulse Resp BP Pulse Ox 98.0 F 56 L 16 117/72 100 05/16/18 15:39 05/16/18 15:39 05/16/18 15:39 05/16/18 15:39 05/16/18 15:39 Plan Activity: other (no strenous activity unless cleared by PCP) Diet: advance as tolerated Follow up with: MORRIS CARDENAS MD [Primary Care Provider] - 7 Days LATISHA ZAPATA MD [Staff Physician] - 7 Days JUWAN HOPE MD [Staff Physician] - 7 Days
[2018-05-16] MEDS ORDERED: NACL 0.9% 1000 ML 1,000 ML ONE (16:18)
--- NOTE | 2018-05-16 17:50 | Post Operative Note ---
Pre-op diagnosis: nausea, vomiting Post-op diagnosis: same Findings: EGD: medium hiatal hernia - moderate gastritis with ulceration (bx's) - moderate duodenitis (bx's) Procedure: EGD Anesthesia: MAC Surgeon: LATISHA ZAPATA Estimated blood loss: none Pathology: list Specimen disposition: to lab Condition: stable Disposition: floor
--- NOTE | 2018-05-16 18:34 | Post Anesthesia Evaluation ---
- Post Anesthesia Evaluation Patient Participated: Yes Airway Patent: Yes Stable Respiratory Function: Yes Temp > 96.8F: Yes Pain Manageable: Yes Adequeate Hydration: Yes Anesthesia Complications: No
--- NOTE | 2018-05-16 19:18 | Operative Report ---
PROCEDURE: EGD with cold biopsy. INDICATION: 1. Nausea, vomiting. 2. Abdominal pain. MEDICATIONS: Propofol per PIPE BUFFER. COMPLICATIONS: None. DESCRIPTION OF PROCEDURE: The patient brought to procedure suite. The patient had the procedure discussed with her at length. All risks, complications, and benefits discussed after which the patient signed for the procedure to be performed. The patient was placed in left lateral decubitus position. Mouth block was placed in the patient's oral cavity. After adequate sedation medication as above, the endoscope was introduced into the mouth and brought to the level of second portion of duodenum. Retroflexion view performed. The patient's vital signs remained stable throughout the procedure. FINDINGS: There was noted to be a [id number] hiatal hernia at GE junction. The esophagus otherwise appeared to be normal. There was moderate antral gastritis with multiple shallow erosions and ulcerations. Biopsies were taken to pathology. Remaining stomach otherwise appeared to be normal. There was moderate duodenitis in the distal bulb with biopsies taken and sent to pathology. Remaining duodenum otherwise appeared to be normal. Retroflexion view performed in the stomach showed no other pathology other than noted above. The patient tolerated the procedure well. No complications during the procedure. IMPRESSION: 1. Hiatal hernia. 2. Nonobstructing Schatzki's ring noted at GE junction. 3. Moderate gastritis with ulcerations, erosions in the antrum with biopsy performed. 4. Duodenitis, biopsies performed. RECOMMENDATIONS: 1. Follow up biopsy results. 2. If H. pylori positive, we will treat. 3. PPI daily. 4. Advance diet. 5. Okay to discharge from GI standpoint, we will sign off, call if needed. JOB# [id number] CAB/NTS
[2018-05-18 11:31] VITALS: BP 119/54
== END 2018-05-16 21:10 | disposition home health service (06) | DRG 291 ==
LOC: ED 22:43 → 4A 05-10 00:40
PROVIDERS: ADMIT Internal Medicine; ATTEND Internal Medicine
PROC: 0DB98ZX Excision of Duodenum, Via Natural or Artificial Opening Endoscopic, Diagnostic (ICD-10-PCS; principal; 2018-05-16)
PROC: 0DB78ZX Excision of Stomach, Pylorus, Via Natural or Artificial Opening Endoscopic, Diagnostic (ICD-10-PCS; 2018-05-16)
DX: I11.0 Hypertensive heart disease with heart failure (principal); J18.1 Lobar pneumonia, unspecified organism; J96.21 Acute and chronic respiratory failure with hypoxia; J44.0 Chronic obstructive pulmonary disease with (acute) lower respiratory infection; I69.354 Hemiplegia and hemiparesis following cerebral infarction affecting left non-dominant side; I50.23 Acute on chronic systolic (congestive) heart failure; K44.9 Diaphragmatic hernia without obstruction or gangrene; K25.9 Gastric ulcer, unspecified as acute or chronic, without hemorrhage or perforation; K29.80 Duodenitis without bleeding; I25.5 Ischemic cardiomyopathy; J44.9 Chronic obstructive pulmonary disease, unspecified; I25.10 Atherosclerotic heart disease of native coronary artery without angina pectoris; I48.0 Paroxysmal atrial fibrillation; F32.9 Major depressive disorder, single episode, unspecified; E03.9 Hypothyroidism, unspecified; F17.200 Nicotine dependence, unspecified, uncomplicated; Z95.1 Presence of aortocoronary bypass graft; Z87.01 Personal history of pneumonia (recurrent); Z95.810 Presence of automatic (implantable) cardiac defibrillator; I25.2 Old myocardial infarction; Z87.11 Personal history of peptic ulcer disease; Z88.0 Allergy status to penicillin; Z88.2 Allergy status to sulfonamides; Z79.82 Long term (current) use of aspirin; Z79.899 Other long term (current) drug therapy; Z95.5 Presence of coronary angioplasty implant and graft
CPT/HCPCS: 36415; 71045; 74018; 76700; 80048; 80076; 82550; 82553; 83735; 83880; 84439; 84443; 84480; 84484; 85025; 85610; 85730; 87040; 88305; 88342; 93005; 93010; 94760; G0378; C9113; J1644; J1940; J1956; J2260; J2270; J2405; J2765; J7030

== ENCOUNTER 2018-06-25 05:28 | Inpatient (IN) | payer MEDICARE ==
[2018-06-25 06:21] LABS: Basophils % (Auto) 0.3 % (0.0-1.8); Eosinophils % (Auto) 0.9 % (0.0-4.3); Hematocrit 34.2 % (30.3-42.9); Hemoglobin 11.1 gm/dl (10.1-14.3); Lymphocytes # (Auto) 0.2 K/mm3 (1.2-5.4); Lymphocytes % (Auto) 4.9 % (13.4-35.0); Mean Corpuscular HGB Conc 33 % (30-34); Mean Corpuscular Volume 107 fl (79-97); Monocytes # (Auto) 0.4 K/mm3 (0.0-0.8); Monocytes % (Auto) 10.3 % (0.0-7.3); Platelet Count 187 K/mm3 (140-440); Red Blood Count 3.21 M/mm3 (3.65-5.03); Red Cell Distribution Width 15.5 % (13.2-15.2)
--- NOTE | 2018-06-25 06:30 | XRay Report ---
PROCEDURE: XR CHEST 1V AP TECHNIQUE: AP portable chest radiograph HISTORY: Dyspnea COMPARISONS: 05/09/2018 FINDINGS: No mediastinal shift. Cardiomegaly. Left chest pacemaker. Blunting of the left costophrenic angle. Ba silar interstitial prominence. No pneumothorax or acute skeletal finding. IMPRESSION: Pulmonary interstitial edema with possible left pleural effusion. This document is electronically signed by Sanjay Abdi MD., June 25 2018 06:26:47 AM ET
[2018-06-25 06:34] LABS: BUN/Creatinine Ratio 23; Blood Urea Nitrogen 18 mg/dL (7-17); Calcium 8.3 mg/dL (8.4-10.2); Hemolysis Index 5
--- NOTE | 2018-06-25 07:20 | Emergency Department Report ---
ED Shortness of Breath HPI - General Chief Complaint: Dyspnea/Respdistress Stated Complaint: DIFFICULTY IN BREATHING Time Seen by Provider: 06/25/18 07:15 Source: patient Mode of arrival: Stretcher Limitations: No Limitations - History of Present Illness Initial Comments: Patient is a 67-year-old female that presents emergency room with complaints of shortness of breath, dyspnea on exertion, difficulty breathing and chest pain. Patient states her symptoms started last night at 2:00 in the morning. Patient states she woke up with these symptoms and feels like she can't breathe. Patient states the chest pain is a 5 out of 10. Patient states the pain is better with rest and worse with exertion. Patient states all her symptoms are better with rest and worse with exertion. Patient states she has been intubated before for COPD. Patient states she is on 4 L at home. MD Complaint: shortness of breath, chest pain -: Sudden Severity: moderate Pain Scale: 5 Quality: throbbing Consistency: constant Improves With: oxygen, rest Worsens With: lying flat, exertion Known History Of: COPD, congestive heart failure Associated Symptoms: chest pain Treatments Prior to Arrival: oxygen - Related Data Home Oxygen Therapy: Yes Home Oxygen Amount: 4 Liters Home Medications Medication Instructions Recorded Confirmed Last Taken Aspirin [Adult Aspirin] 81 mg PO DAILY 02/24/18 06/25/18 05/09/18 Clopidogrel Bisulfate [Plavix] 75 mg PO QDAY 02/24/18 06/25/18 05/09/18 Duloxetine HCl 40 mg PO QDAY 02/24/18 06/25/18 05/09/18 Spironolactone [Aldactone] 25 mg PO QDAY 02/24/18 06/25/18 05/09/18 buPROPion SR [Wellbutrin SR] 150 mg PO BID 02/24/18 06/25/18 05/09/18 Buspirone HCl [busPIRone] 15 mg PO BID 05/10/18 06/25/18 05/09/18 Carvedilol 12.5 mg PO BID 05/10/18 06/25/18 05/09/18 Cyclobenzaprine [Flexeril] 10 mg PO TID PRN 05/10/18 06/25/18 05/09/18 Diphenhydramine HCl [Allergy 25 mg PO DAILY 0106/25/18 05/09/18 Relief] Furosemide [Lasix] 80 mg PO DAILY 05/10/18 06/25/18 05/09/18 ISOSORBIDE MONOnitrate [Imdur ER] 60 mg PO QDAY 05/10/18 06/25/18 05/09/18 LORazepam [Ativan] 0.5 mg PO Q6H PRN 05/10/18 06/25/18 05/09/18 Sertraline HCl [Zoloft] 50 mg PO DAILY 05/10/18 06/25/18 05/09/18 hydrALAZINE [Apresoline] 25 mg PO Q8HR 05/10/18 06/25/18 05/09/18 Previous Rx's Medication Instructions Recorded Last Taken Type Albuterol Sulfate [Ventolin HFA] 1 puff IH Q6H PRN 30 Days 03/03/18 05/09/18 Rx [email or web address] Allergies Allergy/AdvReac Type Severity Reaction Status Date / Time lisinopril Allergy Anaphylaxis Verified 02/24/18 09:15 Penicillins Allergy Seizure Verified 02/24/18 09:15 Sulfa (Sulfonamide AdvReac Hives Verified 02/24/18 09:15 Antibiotics) ED Review of Systems ROS: Stated complaint: DIFFICULTY IN BREATHING Other details as noted in HPI Constitutional: denies: chills, fever Eyes: denies: eye pain, eye discharge, vision change ENT: denies: ear pain, throat pain Respiratory: orthopnea, shortness of breath, SOB with exertion, SOB at rest. denies: cough, wheezing Cardiovascular: chest pain. denies: palpitations Endocrine: no symptoms reported Gastrointestinal: denies: abdominal pain, nausea, diarrhea Genitourinary: denies: urgency, dysuria, discharge Musculoskeletal: denies: back pain, joint swelling, arthralgia Skin: denies: rash, lesions Neurological: denies: headache, weakness, paresthesias Psychiatric: denies: anxiety, depression Hematological/Lymphatic: denies: easy bleeding, easy bruising ED Past Medical Hx - Past Medical History Previous Medical History?: Yes Hx Hypertension: Yes Hx CVA: Yes (2016) Hx Heart Attack/AMI: Yes (2008) Hx Congestive Heart Failure: Yes Hx Diabetes: No Hx Asthma: No Hx COPD: Yes (home O2) - Surgical History Past Surgical History?: Yes Hx Pacemaker: Yes (AICD) - Family History Family history: no significant - Social History Smoking Status: Never Smoker Substance Use Type: None - Medications Home Medications: Home Medications Medication Instructions Recorded Confirmed Last Taken Type Aspirin [Adult Aspirin] 81 mg PO DAILY 02/24/18 06/25/18 05/09/18 History Clopidogrel Bisulfate [Plavix] 75 mg PO QDAY 02/24/18 06/25/18 05/09/18 History Duloxetine HCl 40 mg PO QDAY 02/24/18 06/25/18 05/09/18 History Spironolactone [Aldactone] 25 mg PO QDAY 02/24/18 06/25/18 05/09/18 History buPROPion SR [Wellbutrin SR] 150 mg PO BID 02/24/18 06/25/18 05/09/18 History Albuterol Sulfate [Ventolin HFA] 1 puff IH Q6H PRN 30 Days 03/03/18 06/25/18 05/09/18 Rx [email or web address] Buspirone HCl [busPIRone] 15 mg PO BID 05/10/18 06/25/18 05/09/18 History Carvedilol 12.5 mg PO BID 05/10/18 06/25/18 05/09/18 History Cyclobenzaprine [Flexeril] 10 mg PO TID PRN 05/10/18 06/25/18 05/09/18 History Diphenhydramine HCl [Allergy 25 mg PO DAILY 05/10/18 06/25/18 05/09/18 History Relief] Furosemide [Lasix] 80 mg PO DAILY 05/10/18 06/25/18 05/09/18 History ISOSORBIDE MONOnitrate [Imdur ER] 60 mg PO QDAY 05/10/18 06/25/18 05/09/18 History LORazepam [Ativan] 0.5 mg PO Q6H PRN 05/10/18 06/25/18 05/09/18 History Sertraline HCl [Zoloft] 50 mg PO DAILY 05/10/18 06/25/18 05/09/18 History hydrALAZINE [Apresoline] 25 mg PO Q8HR 05/10/18 06/25/18 05/09/18 History ED Physical Exam - General Limitations: No Limitations General appearance: alert, in no apparent distress - Head Head exam: Present: atraumatic, normocephalic - Eye Eye exam: Present: normal appearance - ENT ENT exam: Present: mucous membranes moist - Neck Neck exam: Present: normal inspection - Respiratory Respiratory exam: Present: decreased breath sounds - Cardiovascular Cardiovascular Exam: Present: regular rate, normal rhythm. Absent: systolic murmur, diastolic murmur, rubs, gallop - GI/Abdominal GI/Abdominal exam: Present: soft, normal bowel sounds - Extremities Exam Extremities exam: Present: normal inspection - Back Exam Back exam: Present: normal inspection - Neurological Exam Neurological exam: Present: alert, oriented X3 - Psychiatric Psychiatric exam: Present: normal affect, normal mood - Skin Skin exam: Present: warm, dry, intact, normal color. Absent: rash ED Course Vital Signs 06/25/18 06/25/18 06/25/18 05:46 06:00 06:16 Temperature 98.2 F Pulse Rate 60 60 Respiratory 18 13 22 Rate Blood Pressure 137/79 142/65 Blood Pressure 128/77 [Left] O2 Sat by Pulse 100 100 99 Oximetry 06/25/18 06/25/18 06/25/18 06:30 06:45 07:30 Temperature Pulse Rate 69 62 Respiratory 23 13 Rate Blood Pressure 121/84 122/67 122/67 Blood Pressure [Left] O2 Sat by Pulse 100 100 98 Oximetry 06/25/18 06/25/18 06/25/18 07:45 08:00 15:09 Temperature Pulse Rate 63 Respiratory 23 20 Rate Blood Pressure 122/67 Blood Pressure [Left] O2 Sat by Pulse 100 Oximetry 06/25/18 15:16 Temperature Pulse Rate 68 Respiratory 20 Rate Blood Pressure Blood Pressure 132/78 [Left] O2 Sat by Pulse 98 Oximetry - Reevaluation(s) Reevaluation #1: 06/25/18 08:54 Discussed all results with patient. Patient will be admitted to the hospitalist service for further evaluation treatment. Patient agrees with plan of care and admission. Patient is found to be in CHF exacerbation. - Consultations Consultation #1: 06/25/18 08:54 Hospitalist consulted for admission. Hospitalist to admit patient and assume care of patient. Bridge orders placed for hospitalist ED Medical Decision Making - Lab Data Result diagrams: 06/25/18 06:10 06/25/18 06:10 - EKG Data -: EKG Interpreted by Me EKG shows normal: ST-T waves Rate: bradycardia - EKG Data Interpretation: other (junctional rhythm.) - Radiology Data Radiology results: report reviewed, image reviewed interpreted by me: Pulmonary edema - Medical Decision Making Patient is a 67-year-old female that presents emergency room with complaints of shortness of breath, chest pain, difficulty breathing and dyspnea on exertion. Patient found to have a CHF exacerbation. Patient was admitted to the hospitalist service. Labs consistent with CHF exacerbation. EKG shows a junctional rhythm. BNP is elevated - Differential Diagnosis CHF exacerbation. Chest pain. Shortness of breath. RILEY. ACS Critical Care Time: Yes Critical care attestation.: If time is entered above; I have spent that time in minutes in the direct care of this critically ill patient, excluding procedure time. Critical Care Time: 45 minutes ED Disposition Clinical Impression: Acute chest pain, Acute on chronic systolic heart failure, RILEY (dyspnea on exertion) CHF (congestive heart failure) Qualifiers: Heart failure type: unspecified Heart failure chronicity: acute on chronic Qualified Code(s): I50.9 - Heart failure, unspecified Dyspnea Qualifiers: Dyspnea type: shortness of breath Qualified Code(s): R06.02 - Shortness of breath Disposition: -09 OP ADMIT IP TO THIS HOSP Is pt being admited?: Yes Does the pt Need Aspirin: No Condition: Critical Time of Disposition: 08:54
[2018-06-25] MEDS ORDERED: ASPIRIN PO ONE (08:10)
[2018-06-25 08:14] LABS: Creatine Kinase MB 3.1 ng/mL (0.0-4.0)
[2018-06-25 08:28] LABS: Bilirubin,Urine NEG (Negative); Blood,Urine NEG (Negative); Color,Urine Amber (Yellow); Mucus,Urine FEW /HPF; WBC,Urine < 1.0 /HPF (0.0-6.0)
[2018-06-25 08:30] LABS: Protein,Urine >2000 mg dL mg/dL (Negative)
[2018-06-25] MEDS ORDERED: LASIX IV ONE (08:53)
[2018-06-25] MEDS ORDERED: PROAIR IH PRN (10:34)
[2018-06-25] MEDS ORDERED: FLEXERIL PO PRN (10:34)
--- NOTE | 2018-06-25 10:40 | History and Physical Report ---
History of Present Illness Date of admission: 06/25/18 08:56 Chief complaint: i am sob History of present illness: 67F who presents with sob, orthopnea and LE edema symptoms have been going on for 3 days, she is compliant with her diuretics on a low-sodium diet. She is also complaining all her medications. She has been having intermittent mild chest pain. Past medical history CAD status post PCI, systolic CHF, EF 10%, status post AICD, PAF, major depression, COPD, Past surgical history Status post AICD Family history; heart disease Social history ; former smoker, denies tobacco at this time, denies alcohol or illicit drug use. Medications and Allergies Allergies Allergy/AdvReac Type Severity Reaction Status Date / Time lisinopril Allergy Anaphylaxis Verified 02/24/18 09:15 Penicillins Allergy Seizure Verified 02/24/18 09:15 Sulfa (Sulfonamide AdvReac Hives Verified 02/24/18 09:15 Antibiotics) Home Medications Medication Instructions Recorded Confirmed Last Taken Type Aspirin [Adult Aspirin] 81 mg PO DAILY 02/24/18 06/25/18 05/09/18 History Clopidogrel Bisulfate [Plavix] 75 mg PO QDAY 02/24/18 06/25/18 05/09/18 History Duloxetine HCl 40 mg PO QDAY 02/24/18 06/25/18 05/09/18 History Spironolactone [Aldactone] 25 mg PO QDAY 02/24/18 06/25/18 05/09/18 History buPROPion SR [Wellbutrin SR] 150 mg PO BID 02/24/18 06/25/18 05/09/18 History Albuterol Sulfate [Ventolin HFA] 1 puff IH Q6H PRN 30 Days 03/03/18 06/25/18 05/09/18 Rx [email or web address] Buspirone HCl [busPIRone] 15 mg PO BID 05/10/18 06/25/18 05/09/18 History Carvedilol 12.5 mg PO BID 05/10/18 06/25/18 05/09/18 History Cyclobenzaprine [Flexeril] 10 mg PO TID PRN 05/10/18 06/25/18 05/09/18 History Diphenhydramine HCl [Allergy 25 mg PO DAILY 05/10/18 06/25/18 05/09/18 History Relief] Furosemide [Lasix] 80 mg PO DAILY 05/10/18 06/25/18 05/09/18 History ISOSORBIDE MONOnitrate [Imdur ER] 60 mg PO QDAY 05/10/18 06/25/18 05/09/18 History LORazepam [Ativan] 0.5 mg PO Q6H PRN 05/10/18 06/25/18 05/09/18 History Sertraline HCl [Zoloft] 50 mg PO DAILY 05/10/18 06/25/18 05/09/18 History hydrALAZINE [Apresoline] 25 mg PO Q8HR 05/10/18 06/25/18 05/09/18 History Active Meds: Active Medications Albuterol (Proair) 1 puff IH Q6H PRN PRN Reason: Wheezing Aspirin (Halfprin Ec) 81 mg PO DAILY [facility] Bupropion HCl (Wellbutrin Sr) 150 mg PO BID [facility] Carvedilol (Coreg) 12.5 mg PO BID [facility] Clopidogrel Bisulfate (Plavix) 75 mg PO QDAY [facility] Cyclobenzaprine HCl (Flexeril) 10 mg PO TID PRN PRN Reason: Muscle Spasm Diphenhydramine HCl (Benadryl) 25 mg PO DAILY [facility] Hydralazine HCl (Apresoline) 25 mg PO Q8HR [facility] Isosorbide Mononitrate (Imdur) 60 mg PO QDAY [facility] Miscellaneous Medication (Buspirone Hcl [Buspirone]) 15 mg PO BID [facility] Miscellaneous Medication (Duloxetine Hcl [Duloxetine Hcl]) 40 mg PO QDAY [facility] Sertraline HCl (Zoloft) 50 mg PO DAILY [facility] Review of Systems All systems: negative Constitutional: fatigue Ears, nose, mouth and throat: no ear pain Breasts: no deferred Cardiovascular: chest pain, orthopnea, edema Respiratory: no cough Gastrointestinal: no nausea Genitourinary Female: no dyspareunia Menstruation: no currently menstrual Rectal: no pain Musculoskeletal: no neck stiffness Integumentary: no deferred Neurological: no head injury Psychiatric: no anxiety Endocrine: no cold intolerance Hematologic/Lymphatic: no easy bruising Allergic/Immunologic: no urticaria Exam - Constitutional Vitals: Temp Pulse Resp BP Pulse Ox 98.2 F 63 23 122/67 100 06/25/18 05:46 06/25/18 07:45 06/25/18 08:00 06/25/18 08:00 06/25/18 08:00 General appearance: Present: no acute distress, well-nourished - EENT Eyes: Present: PERRL ENT: hearing intact, clear oral mucosa - Neck Neck: Present: supple, normal ROM - Respiratory Respiratory effort: normal Respiratory: bilateral: rales - Cardiovascular Heart Sounds: Present: S1 & S2. Absent: rub, click - Extremities Extremities: pulses symmetrical Extremity abnormal: edema Peripheral Pulses: within normal limits - Abdominal General gastrointestinal: Present: soft, non-tender, non-distended, normal bowel sounds Female genitourinary: Present: normal - Integumentary Integumentary: Present: clear, warm, dry - Musculoskeletal Musculoskeletal: gait normal, strength equal bilaterally - Psychiatric Psychiatric: appropriate mood/affect, intact judgment & insight - Neurologic Neurologic: CNII-XII intact, moves all extremities Results - Labs CBC & Chem 7: 06/25/18 06:10 06/27/18 05:28 Labs: Laboratory Last Values WBC 4.1 K/mm3 (4.5-11.0) L 06/25/18 06:10 RBC 3.21 M/mm3 (3.65-5.03) L 06/25/18 06:10 Hgb 11.1 gm/dl (10.1-14.3) 06/25/18 06:10 Hct 34.2 % (30.3-42.9) 06/25/18 06:10 MCV 107 fl (79-97) H 06/25/18 06:10 MCH 35 pg (28-32) H 06/25/18 06:10 MCHC 33 % (30-34) 06/25/18 06:10 RDW 15.5 % (13.2-15.2) H 06/25/18 06:10 Plt Count 187 K/mm3 (140-440) 06/25/18 06:10 Lymph % (Auto) 4.9 % (13.4-35.0) L 06/25/18 06:10 [place] % (Auto) 10.3 % (0.0-7.3) H 06/25/18 06:10 Eos % (Auto) 0.9 % (0.0-4.3) 06/25/18 06:10 Baso % (Auto) 0.3 % (0.0-1.8) 06/25/18 06:10 Lymph # 0.2 K/mm3 (1.2-5.4) L 06/25/18 06:10 [place] # 0.4 K/mm3 (0.0-0.8) 06/25/18 06:10 Eos # 0.0 K/mm3 (0.0-0.4) 06/25/18 06:10 Baso # 0.0 K/mm3 (0.0-0.1) 06/25/18 06:10 Seg Neutrophils % 83.6 % (40.0-70.0) H 06/25/18 06:10 Seg Neutrophils # 3.4 K/mm3 (1.8-7.7) 06/25/18 06:10 Sodium 137 mmol/L (137-145) 06/25/18 06:10 Potassium 5.0 mmol/L (3.6-5.0) 06/25/18 06:10 Chloride 103.8 mmol/L (98-107) 06/25/18 06:10 Carbon Dioxide 28 mmol/L (22-30) 06/25/18 06:10 Anion Gap 10 mmol/L 06/25/18 06:10 BUN 18 mg/dL (7-17) H 06/25/18 06:10 Creatinine 0.8 mg/dL (0.7-1.2) 06/25/18 06:10 Estimated GFR > 60 ml/min 06/25/18 06:10 BUN/Creatinine Ratio 23 % 06/25/18 06:10 Glucose 116 mg/dL (65-100) H 06/25/18 06:10 Calcium 8.3 mg/dL (8.4-10.2) L 06/25/18 06:10 Total Creatine Kinase 192 units/L (30-135) H 06/25/18 06:10 CK-MB (CK-2) 3.1 ng/mL (0.0-4.0) 06/25/18 06:10 CK-MB (CK-2) Rel Index 1.6 (0-4) 06/25/18 06:10 Troponin T < 0.010 ng/mL (0.00-0.029) 06/25/18 06:10 NT-Pro-B Natriuret Pep 7516 pg/mL (0-900) H 06/25/18 06:10 Urine Color [place] (Yellow) 06/25/18 08:08 Urine Turbidity Clear (Clear) 06/25/18 08:08 Urine pH 6.0 (5.0-7.0) 06/25/18 08:08 Ur Specific [place] 1.025 (1.003-1.030) 06/25/18 08:08 Urine Protein >2000 mg dl mg/dL (Negative) 06/25/18 08:08 Urine Glucose (UA) Neg mg/dL (Negative) 06/25/18 08:08 Urine Ketones Neg mg/dL (Negative) 06/25/18 08:08 Urine Blood Neg (Negative) 06/25/18 08:08 Urine Nitrite Neg (Negative) 06/25/18 08:08 Urine Bilirubin Neg (Negative) 06/25/18 08:08 Urine Urobilinogen 2.0 mg/dL (<2.0) 06/25/18 08:08 Ur Leukocyte Esterase Neg (Negative) 06/25/18 08:08 Urine WBC (Auto) < 1.0 /HPF (0.0-6.0) 06/25/18 08:08 Urine RBC (Auto) 2.0 /HPF (0.0-6.0) 06/25/18 08:08 U Epithel Cells (Auto) 1.0 /HPF (0-13.0) 06/25/18 08:08 Urine Mucus Few /HPF 06/25/18 08:08 - Imaging and Cardiology Chest x-ray: image reviewed (pulmonary edema) Assessment and Plan Assessment and plan: 67F who is admitted for sob, pedal edema, orthopnea Diagnosis Acute on chronic systolic CHF, EF 10, sp AICD Acute respiratory failure pulmonary edema CP likely due to CHF Plan -IV diuretics, optimize cardiac meds cardiology consulted -oxygen and pain meds as needed DVT ppx chemical
[2018-06-25] MEDS ORDERED: LASIX ONE (10:43)
[2018-06-25] MEDS ORDERED: PROVENTIL IH PRN (11:57)
[2018-06-25] MEDS: APRESOLINE PO SCH ×2 (14:00→22:21)
[2018-06-25] MEDS: MORPHINE IV PRN (15:09)
[2018-06-25 17:51] LABS: BUN/Creatinine Ratio 27; Blood Urea Nitrogen 19 mg/dL (7-17); Calcium 8.2 mg/dL (8.4-10.2); Hemolysis Index 7
[2018-06-25] MEDS: LASIX IV SCH (18:47)
[2018-06-25] MEDS ORDERED: NON-FORMULARY (Buspirone Hcl [Buspirone] 15 MG) PO SCH (22:00)
[2018-06-25] MEDS: BUSPAR PO SCH (22:21)
[2018-06-25] MEDS: COREG PO SCH (22:21)
[2018-06-25] MEDS: WELLBUTRIN SR PO SCH (22:22)
[2018-06-25] MEDS: TYLENOL PO PRN (22:23)
[2018-06-25] MEDS: ZOFRAN IV PRN (22:23)
[2018-06-26] MEDS: APRESOLINE PO SCH ×3 (05:51→21:53)
[2018-06-26] MEDS: LASIX IV SCH ×2 (05:51→18:34)
[2018-06-26] MEDS: ZOFRAN IV PRN (05:51)
[2018-06-26] MEDS: TYLENOL PO PRN (05:51)
--- NOTE | 2018-06-26 08:44 | Progress Note ---
Assessment and Plan Assessment and plan: 67F who is admitted for sob, pedal edema, orthopnea Diagnosis Acute on chronic systolic CHF, EF 10, sp AICD Acute respiratory failure pulmonary edema CP likely due to CHF Peptic ulcer disease with abdominal pain due to noncompliance with PPI Plan -IV diuretics, optimize cardiac meds cardiology consult appreciated, she has been started on milrinone drip -oxygen and pain meds as needed -Reviewed GI notes, she has had recent EGD which confirmed peptic ulcers, patient was put on PPI, but she has not been taking it, PPI was restarted DVT ppx chemical History Interval history: Review of systems Constitutional: No fevers, no malaise, no joint pains CVS: Chest pain has now resolved, still complaining of shortness of breath and bipedal edema, and orthopnea GI: She is complaining of anorexia, and epigastric pain Respiratory: no wheezing, no coughing Hospitalist Physical - Physical exam Narrative exam: General.: Appears well, no distress, nontoxic HEENT: Moist mucous membranes, extraocular muscles intact, no lymphadenopathy Neck: supple Cardiac: S1-S2 heard Lungs: Bibasilar crackles Abdomen: soft , nontender, nondistended, bowel sounds positive Extremities: Bipedal edema Skin: no rash or lesions Neurologic: no gross focal deficits Psych: calm, and cooperative - Constitutional Vitals: Temp Pulse Resp BP Pulse Ox 97.8 F 53 L 20 105/43 100 06/26/18 04:22 06/26/18 05:51 06/26/18 06:51 06/26/18 05:51 06/26/18 04:22 Results - Labs CBC & Chem 7: 06/25/18 06:10 06/27/18 05:28 Labs: Laboratory Last Values WBC 4.1 K/mm3 (4.5-11.0) L 06/25/18 06:10 RBC 3.21 M/mm3 (3.65-5.03) L 06/25/18 06:10 Hgb 11.1 gm/dl (10.1-14.3) 06/25/18 06:10 Hct 34.2 % (30.3-42.9) 06/25/18 06:10 MCV 107 fl (79-97) H 06/25/18 06:10 MCH 35 pg (28-32) H 06/25/18 06:10 MCHC 33 % (30-34) 06/25/18 06:10 RDW 15.5 % (13.2-15.2) H 06/25/18 06:10 Plt Count 187 K/mm3 (140-440) 06/25/18 06:10 Lymph % (Auto) 4.9 % (13.4-35.0) L 06/25/18 06:10 [place] % (Auto) 10.3 % (0.0-7.3) H 06/25/18 06:10 Eos % (Auto) 0.9 % (0.0-4.3) 06/25/18 06:10 Baso % (Auto) 0.3 % (0.0-1.8) 06/25/18 06:10 Lymph # 0.2 K/mm3 (1.2-5.4) L 06/25/18 06:10 [place] # 0.4 K/mm3 (0.0-0.8) 06/25/18 06:10 Eos # 0.0 K/mm3 (0.0-0.4) 06/25/18 06:10 Baso # 0.0 K/mm3 (0.0-0.1) 06/25/18 06:10 Seg Neutrophils % 83.6 % (40.0-70.0) H 06/25/18 06:10 Seg Neutrophils # 3.4 K/mm3 (1.8-7.7) 06/25/18 06:10 Sodium 140 mmol/L (137-145) 06/25/18 17:01 Potassium 4.7 mmol/L (3.6-5.0) 06/26/18 04:27 Chloride 105.2 mmol/L (98-107) 06/25/18 17:01 Carbon Dioxide 29 mmol/L (22-30) 06/25/18 17:01 Anion Gap 11 mmol/L 06/25/18 17:01 BUN 19 mg/dL (7-17) H 06/25/18 17:01 Creatinine 0.7 mg/dL (0.7-1.2) 06/25/18 17:01 Estimated GFR > 60 ml/min 06/25/18 17:01 BUN/Creatinine Ratio 27 % 06/25/18 17:01 Glucose 97 mg/dL (65-100) 06/25/18 17:01 Calcium 8.2 mg/dL (8.4-10.2) L 06/25/18 17:01 Total Creatine Kinase 192 units/L (30-135) H 06/25/18 06:10 CK-MB (CK-2) 3.1 ng/mL (0.0-4.0) 06/25/18 06:10 CK-MB (CK-2) Rel Index 1.6 (0-4) 06/25/18 06:10 Troponin T < 0.010 ng/mL (0.00-0.029) 06/25/18 06:10 NT-Pro-B Natriuret Pep 7516 pg/mL (0-900) H 06/25/18 06:10 Urine Color [place] (Yellow) 06/25/18 08:08 Urine Turbidity Clear (Clear) 06/25/18 08:08 Urine pH 6.0 (5.0-7.0) 06/25/18 08:08 Ur Specific [place] 1.025 (1.003-1.030) 06/25/18 08:08 Urine Protein >2000 mg dl mg/dL (Negative) 06/25/18 08:08 Urine Glucose (UA) Neg mg/dL (Negative) 06/25/18 08:08 Urine Ketones Neg mg/dL (Negative) 06/25/18 08:08 Urine Blood Neg (Negative) 06/25/18 08:08 Urine Nitrite Neg (Negative) 06/25/18 08:08 Urine Bilirubin Neg (Negative) 06/25/18 08:08 Urine Urobilinogen 2.0 mg/dL (<2.0) 06/25/18 08:08 Ur Leukocyte Esterase Neg (Negative) 06/25/18 08:08 Urine WBC (Auto) < 1.0 /HPF (0.0-6.0) 06/25/18 08:08 Urine RBC (Auto) 2.0 /HPF (0.0-6.0) 06/25/18 08:08 U Epithel Cells (Auto) 1.0 /HPF (0-13.0) 06/25/18 08:08 Urine Mucus Few /HPF 06/25/18 08:08
[2018-06-26] MEDS: IMDUR PO SCH (09:50)
[2018-06-26] MEDS: HALFPRIN EC PO SCH (09:51)
[2018-06-26] MEDS: PLAVIX PO SCH (09:52)
[2018-06-26] MEDS: WELLBUTRIN SR PO SCH ×2 (09:52→21:54)
[2018-06-26] MEDS: COREG PO SCH ×2 (09:52→21:53)
[2018-06-26] MEDS: BENADRYL PO SCH (09:52)
[2018-06-26] MEDS: ZOLOFT PO SCH (09:55)
[2018-06-26] MEDS: BUSPAR PO SCH ×2 (09:56→21:53)
--- NOTE | 2018-06-26 11:19 | Consultation ---
History of Present Illness Consult date: 06/26/18 Consult reason: congestive heart failure History of present illness: Patient is a 67 year old woman with a history of severe ischemic cardiomyopathy, coronary artery disease with prior bypass grafting. She has an indwelling cardiac defibrillator. Her latest cardiac workup was done 3 months ago. She had a cardiac cath that revealed patent SVG to LAD, SVG to OM and SVG to PDA, patent diagonal stent, LVEF 10-15%. Patient has a recent history of paroxysmal atrial fibrillation treated with eliquis for oral anticoagulation. She also has chronic lung disease and is on home oxygen. Patient presented with complaints of shortness of breath. Patient denies chest pain and there is no lower extremity edema. Chest x-ray on this presentation shows interstitial edema consistent with acute on chronic systolic heart failure. Cardiology consultation was requested. Medications and Allergies Allergies Allergy/AdvReac Type Severity Reaction Status Date / Time lisinopril Allergy Anaphylaxis Verified 02/24/18 09:15 Penicillins Allergy Seizure Verified 02/24/18 09:15 Sulfa (Sulfonamide AdvReac Hives Verified 02/24/18 09:15 Antibiotics) Home Medications Medication Instructions Recorded Confirmed Last Taken Type Aspirin [Adult Aspirin] 81 mg PO DAILY 02/24/18 06/25/18 05/09/18 History Clopidogrel Bisulfate [Plavix] 75 mg PO QDAY 02/24/18 06/25/18 05/09/18 History Duloxetine HCl 40 mg PO QDAY 02/24/18 06/25/18 05/09/18 History Spironolactone [Aldactone] 25 mg PO QDAY 02/24/18 06/25/18 05/09/18 History buPROPion SR [Wellbutrin SR] 150 mg PO BID 02/24/18 06/25/18 05/09/18 History Albuterol Sulfate [Ventolin HFA] 1 puff IH Q6H PRN 30 Days 03/03/18 06/25/18 05/09/18 Rx [email or web address] Buspirone HCl [busPIRone] 15 mg PO BID 05/10/18 06/25/18 05/09/18 History Carvedilol 12.5 mg PO BID 05/10/18 06/25/18 05/09/18 History Cyclobenzaprine [Flexeril] 10 mg PO TID PRN 05/10/18 06/25/18 05/09/18 History Diphenhydramine HCl [Allergy 25 mg PO DAILY 05/10/18 06/25/18 05/09/18 History Relief] Furosemide [Lasix] 80 mg PO DAILY 05/10/18 06/25/18 05/09/18 History ISOSORBIDE MONOnitrate [Imdur ER] 60 mg PO QDAY 05/10/18 06/25/18 05/09/18 History LORazepam [Ativan] 0.5 mg PO Q6H PRN 05/10/18 06/25/18 05/09/18 History Sertraline HCl [Zoloft] 50 mg PO DAILY 05/10/18 06/25/18 05/09/18 History hydrALAZINE [Apresoline] 25 mg PO Q8HR 05/10/18 06/25/18 05/09/18 History Active Meds: Active Medications Acetaminophen (Tylenol) 650 mg PO Q6H PRN PRN Reason: Pain, Mild (1-3) Last Admin: 06/26/18 05:51 Dose: 650 mg Documented by: Aspirin (Halfprin Ec) 81 mg PO DAILY [facility] Last Admin: 06/26/18 09:51 Dose: 81 mg Documented by: Bupropion HCl (Wellbutrin Sr) 150 mg PO BID [facility] Last Admin: 06/26/18 09:52 Dose: 150 mg Documented by: Buspirone HCl (Buspar) 15 mg PO BID [facility] Last Admin: 06/26/18 09:56 Dose: 15 mg Documented by: Carvedilol (Coreg) 12.5 mg PO BID [facility] Last Admin: 06/26/18 09:52 Dose: 12.5 mg Documented by: Clopidogrel Bisulfate (Plavix) 75 mg PO QDAY [facility] Last Admin: 06/26/18 09:52 Dose: 75 mg Documented by: Cyclobenzaprine HCl (Flexeril) 10 mg PO TID PRN PRN Reason: Muscle Spasm Last Admin: 06/25/18 22:22 Dose: 10 mg Documented by: Diphenhydramine HCl (Benadryl) 25 mg PO DAILY [facility] Last Admin: 06/26/18 09:52 Dose: 25 mg Documented by: Furosemide (Lasix) 40 mg IV BID@0600,1800 [facility] Last Admin: 06/26/18 05:51 Dose: 40 mg Documented by: Hydralazine HCl (Apresoline) 25 mg PO Q8HR [facility] Last Admin: 06/26/18 05:51 Dose: 25 mg Documented by: Isosorbide Mononitrate (Imdur) 60 mg PO QDAY [facility] Last Admin: 06/26/18 09:50 Dose: 60 mg Documented by: Miscellaneous Medication (Duloxetine Hcl [Duloxetine Hcl]) 40 mg PO QDAY [facility] Morphine Sulfate (Morphine) 2 mg IV Q4H PRN PRN Reason: Pain, Moderate (4-6) Stop: 06/27/18 14:31 Last Admin: 06/25/18 15:09 Dose: 2 mg Documented by: Ondansetron HCl (Zofran) 4 mg IV Q4H PRN PRN Reason: Nausea And Vomiting Last Admin: 06/26/18 05:51 Dose: 4 mg Documented by: Sertraline HCl (Zoloft) 50 mg PO DAILY [facility] Last Admin: 06/26/18 09:55 Dose: Not Given Documented by: Physical Examination Vital Signs Temp Resp BP Pulse Ox 98.2 F 18 128/77 100 06/25/18 05:46 06/25/18 05:46 06/25/18 05:46 06/25/18 05:46 General appearance: no acute distress HEENT: Positive: PERRL Neck: Positive: trachea midline Cardiac: Positive: Other (paced) Lungs: Positive: Decreased Breath Sounds Neuro: Positive: Grossly Intact Extremities: Absent: edema Results 06/25/18 06:10 06/26/18 04:27 Comprehensive Metabolic Panel 06/25/18 06/26/18 Range/Units 17:01 04:27 Sodium 140 (137-145) mmol/L Potassium 4.7 4.7 (3.6-5.0) mmol/L Chloride 105.2 (98-107) mmol/L Carbon Dioxide 29 (22-30) mmol/L BUN 19 H (7-17) mg/dL Creatinine 0.7 (0.7-1.2) mg/dL Glucose 97 (65-100) mg/dL Calcium 8.2 L (8.4-10.2) mg/dL Assessment and Plan Acute on chronic systolic heart failure Hx of coronary artery disease cardiac cath 03/2018 revealed patent SVG to LAD, SVG to OM and SVG to PDA, Patent diagonal stent, LVEF 10-15%. Hx of Ischemic cardiomyopathy, ejection fraction 10-15%. Presence of single chamber cardiac defibrillator underlying paroxysmal atrial fibrillation previously treated with eliquis for oral anticoagulation therapy. Tobacco abuse Recommendations: Medical therapy for chronic systolic heart failure, coronary artery disease and paroxysmal Afib. We will initiate a trail of intravenous milronone for aggressive heart failure management.
[2018-06-26] MEDS ORDERED: ALUM-MAG HYDROX-SIMETH 200-200-20MG/5ML PO PRN (11:43)
[2018-06-26] MEDS: MORPHINE IV PRN ×2 (12:20→18:37)
[2018-06-26] MEDS: PROTONIX PO SCH (14:26)
[2018-06-26] MEDS: MILRINONE-D5W 20 MG/100 ML 20 MG/100 ML BAG IV SCH ×2 (16:23→23:04)
[2018-06-27] MEDS: MILRINONE-D5W 20 MG/100 ML 20 MG/100 ML BAG IV SCH ×3 (05:00→21:42)
[2018-06-27] MEDS: LASIX IV SCH ×2 (06:35→18:49)
[2018-06-27] MEDS: APRESOLINE PO SCH ×3 (06:35→22:06)
[2018-06-27] MEDS: BUSPAR PO SCH ×2 (09:11→22:06)
[2018-06-27] MEDS: PLAVIX PO SCH (09:13)
[2018-06-27] MEDS: ZOLOFT PO SCH (09:13)
[2018-06-27] MEDS: PROTONIX PO SCH (09:13)
[2018-06-27] MEDS: BENADRYL PO SCH (09:13)
[2018-06-27] MEDS: WELLBUTRIN SR PO SCH ×2 (09:13→22:05)
[2018-06-27] MEDS: HALFPRIN EC PO SCH (09:13)
[2018-06-27] MEDS: IMDUR PO SCH (09:23)
[2018-06-27] MEDS: COREG PO SCH ×2 (09:23→22:06)
--- NOTE | 2018-06-27 09:56 | Progress Note ---
Assessment and Plan Acute on chronic systolic heart failure Hx of coronary artery disease cardiac cath 03/2018 revealed patent SVG to LAD, SVG to OM and SVG to PDA, Patent diagonal stent, LVEF 10-15%. Hx of Ischemic cardiomyopathy, ejection fraction 10-15%. Presence of single chamber cardiac defibrillator underlying paroxysmal atrial fibrillation previously treated with eliquis for oral anticoagulation therapy. Tobacco abuse Recommendations: Medical therapy for chronic systolic heart failure, coronary artery disease and paroxysmal Afib. Continue trial of intravenous milronone for an additional 48hrs. Subjective Date of service: 06/27/18 Interval history: Patient reports her breathing is improving. IV milrinone continues. Objective Vital Signs Temp Pulse Resp Resp BP BP Pulse Ox 06/27/18 09:23 64 126/52 06/27/18 09:21 97.5 F L 81 20 126/52 95 06/27/18 09:19 97.5 F L 81 20 126/52 94 06/27/18 06:35 60 136/72 06/27/18 03:58 97.2 F L 50 L 20 126/68 96 06/26/18 23:40 97.1 F L 56 L 20 102/54 97 06/26/18 22:00 22 06/26/18 21:53 68 102/60 06/26/18 20:30 22 95 06/26/18 19:51 73 06/26/18 19:40 97.6 F 66 20 102/60 93 06/26/18 19:07 20 06/26/18 18:15 57 L 111/51 06/26/18 15:28 97.9 F 56 L 22 111/51 97 06/26/18 10:18 97.3 F L 68 24 131/76 94 06/26/18 10:00 51 L - Physical Examination General: No Apparent Distress HEENT: Positive: PERRL Neck: Positive: trachea midline Cardiac: Positive: Other (paced) Lungs: Positive: Decreased Breath Sounds Neuro: Positive: Grossly Intact Extremities: Absent: edema - Labs and Meds Comprehensive Metabolic Panel 06/27/18 Range/Units 05:28 Potassium 4.4 (3.6-5.0) mmol/L
[2018-06-27] MEDS ORDERED: ELIQUIS PO SCH (10:00)
[2018-06-27] MEDS: MORPHINE IV PRN (10:37)
--- NOTE | 2018-06-27 12:47 | Progress Note ---
Assessment and Plan Assessment and plan: 67F who is admitted for sob, pedal edema, orthopnea Diagnosis Acute on chronic systolic CHF, EF 10, sp AICD Acute respiratory failure pulmonary edema CP likely due to CHF Peptic ulcer disease with abdominal pain due to noncompliance with PPI proteinuria Plan -IV diuretics, optimize cardiac meds, oxygen prn cardiology consult appreciated, cont milrinone drip, add now on eliquis -oxygen and pain meds as needed -Reviewed GI notes, she has had recent EGD which confirmed peptic ulcers, patient was put on PPI, but she has not been taking it, PPI was restarted -Renal consult to eval for proteinuria DVT ppx chemical History Interval history: Review of systems Constitutional: No fevers, no malaise, no joint pains CVS: Chest pain has now resolved, still complaining of shortness of breath and b ipedal edema, and orthopnea GI: She is complaining of anorexia, and epigastric pain Respiratory: no wheezing, no coughing Hospitalist Physical - Physical exam Narrative exam: General.: Appears well, no distress, nontoxic HEENT: Moist mucous membranes, extraocular muscles intact, no lymphadenopathy Neck: supple Cardiac: S1-S2 heard Lungs: Bibasilar crackles Abdomen: soft , nontender, nondistended, bowel sounds positive Extremities: Bipedal edema Skin: no rash or lesions Neurologic: no gross focal deficits Psych: calm, and cooperative - Constitutional Vitals: Temp Pulse Resp BP Pulse Ox 97.1 F L 62 20 102/51 98 06/27/18 11:18 06/27/18 11:19 06/27/18 11:19 06/27/18 11:19 06/27/18 11:19 General appearance: Present: no acute distress, well-nourished Results - Labs CBC & Chem 7: 06/25/18 06:10 06/27/18 05:28 Labs: Laboratory Last Values WBC 4.1 K/mm3 (4.5-11.0) L 06/25/18 06:10 RBC 3.21 M/mm3 (3.65-5.03) L 06/25/18 06:10 Hgb 11.1 gm/dl (10.1-14.3) 06/25/18 06:10 Hct 34.2 % (30.3-42.9) 06/25/18 06:10 MCV 107 fl (79-97) H 06/25/18 06:10 MCH 35 pg (28-32) H 06/25/18 06:10 MCHC 33 % (30-34) 06/25/18 06:10 RDW 15.5 % (13.2-15.2) H 06/25/18 06:10 Plt Count 187 K/mm3 (140-440) 06/25/18 06:10 Lymph % (Auto) 4.9 % (13.4-35.0) L 06/25/18 06:10 [place] % (Auto) 10.3 % (0.0-7.3) H 06/25/18 06:10 Eos % (Auto) 0.9 % (0.0-4.3) 06/25/18 06:10 Baso % (Auto) 0.3 % (0.0-1.8) 06/25/18 06:10 Lymph # 0.2 K/mm3 (1.2-5.4) L 06/25/18 06:10 Potter # 0.4 K/mm3 (0.0-0.8) 06/25/18 06:10 Eos # 0.0 K/mm3 (0.0-0.4) 06/25/18 06:10 Baso # 0.0 K/mm3 (0.0-0.1) 06/25/18 06:10 Seg Neutrophils % 83.6 % (40.0-70.0) H 06/25/18 06:10 Seg Neutrophils # 3.4 K/mm3 (1.8-7.7) 06/25/18 06:10 Sodium 140 mmol/L (137-145) 06/25/18 17:01 Potassium 4.4 mmol/L (3.6-5.0) 06/27/18 05:28 Chloride 105.2 mmol/L (98-107) 06/25/18 17:01 Carbon Dioxide 29 mmol/L (22-30) 06/25/18 17:01 Anion Gap 11 mmol/L 06/25/18 17:01 BUN 19 mg/dL (7-17) H 06/25/18 17:01 Creatinine 0.7 mg/dL (0.7-1.2) 06/25/18 17:01 Estimated GFR > 60 ml/min 06/25/18 17:01 BUN/Creatinine Ratio 27 % 06/25/18 17:01 Glucose 97 mg/dL (65-100) 06/25/18 17:01 Calcium 8.2 mg/dL (8.4-10.2) L 06/25/18 17:01 Total Creatine Kinase 192 units/L (30-135) H 06/25/18 06:10 CK-MB (CK-2) 3.1 ng/mL (0.0-4.0) 06/25/18 06:10 CK-MB (CK-2) Rel Index 1.6 (0-4) 06/25/18 06:10 Troponin T < 0.010 ng/mL (0.00-0.029) 06/25/18 06:10 NT-Pro-B Natriuret Pep 7516 pg/mL (0-900) H 06/25/18 06:10 Urine Color Shonda (Yellow) 06/25/18 08:08 Urine Turbidity Clear (Clear) 06/25/18 08:08 Urine pH 6.0 (5.0-7.0) 06/25/18 08:08 Ur Specific [place] 1.025 (1.003-1.030) 06/25/18 08:08 Urine Protein >2000 mg dl mg/dL (Negative) 06/25/18 08:08 Urine Glucose (UA) Neg mg/dL (Negative) 06/25/18 08:08 Urine Ketones Neg mg/dL (Negative) 06/25/18 08:08 Urine Blood Neg (Negative) 06/25/18 08:08 Urine Nitrite Neg (Negative) 06/25/18 08:08 Urine Bilirubin Neg (Negative) 06/25/18 08:08 Urine Urobilinogen 2.0 mg/dL (<2.0) 06/25/18 08:08 Ur Leukocyte Esterase Neg (Negative) 06/25/18 08:08 Urine WBC (Auto) < 1.0 /HPF (0.0-6.0) 06/25/18 08:08 Urine RBC (Auto) 2.0 /HPF (0.0-6.0) 06/25/18 08:08 U Epithel Cells (Auto) 1.0 /HPF (0-13.0) 06/25/18 08:08 Urine Mucus Few /HPF 06/25/18 08:08
[2018-06-27] MEDS: CYMBALTA PO SCH (12:53)
[2018-06-27] MEDS: TYLENOL PO PRN (19:00)
[2018-06-27] MEDS: ELIQUIS PO SCH (22:06)
[2018-06-28] MEDS: APRESOLINE PO SCH ×3 (06:25→22:21)
[2018-06-28] MEDS: LASIX IV SCH ×2 (06:25→18:32)
[2018-06-28] MEDS: MILRINONE-D5W 20 MG/100 ML 20 MG/100 ML BAG IV SCH ×2 (06:26→14:03)
[2018-06-28] MEDS: BUSPAR PO SCH ×2 (09:41→22:21)
[2018-06-28] MEDS: HALFPRIN EC PO SCH (10:46)
[2018-06-28] MEDS: BENADRYL PO SCH (10:46)
[2018-06-28] MEDS: COREG PO SCH ×2 (10:46→22:21)
[2018-06-28] MEDS: CYMBALTA PO SCH (10:46)
[2018-06-28] MEDS: ZOLOFT PO SCH (10:47)
[2018-06-28] MEDS: WELLBUTRIN SR PO SCH ×2 (10:47→22:41)
[2018-06-28] MEDS: ELIQUIS PO SCH ×2 (10:47→22:21)
[2018-06-28] MEDS: IMDUR PO SCH (10:47)
[2018-06-28] MEDS: PROTONIX PO SCH (10:49)
--- NOTE | 2018-06-28 11:01 | Progress Note ---
Assessment and Plan - Patient Problems (1) Proteinuria Current Visit: Yes Status: Acute Plan to address problem: Proteinuria etiology uncertain. If significant in the nephrotic range, may be contributing to edema/fluid retention. Will quantify proteinuria and check serologies. Further management depending on the results (2) Acute on chronic systolic heart failure Current Visit: Yes Status: Acute (3) Chest pain Current Visit: Yes Status: Acute Plan to address problem: Substernal chest pain. (4) Hyperlipidemia Current Visit: No Status: Chronic Qualifiers: Hyperlipidemia type: mixed hyperlipidemia Qualified Code(s): E78.2 - Mixed hyperlipidemia (5) Hypertension Current Visit: No Status: Chronic Qualifiers: Hypertension type: essential hypertension Qualified Code(s): I10 - Essential (primary) hypertension Subjective Date of service: 06/28/18 Principal diagnosis: Proteinuria Interval history: 67-year-old lady with a history of coronary artery disease, congestive heart failure admitted on account of 1-2 week history of shortness of breath, orthopnea and lower extremity edema. Patient also had nausea on and off but no vomiting. She admits to dizziness when she bends over "I keep going down". She also admits to chest pain which is a constant substernal pain lasting for at least 2 weeks and radiating to her back with left shoulder pain with limitation of range of movement. Patient was admitted with impression of acute on chronic systolic heart failure. Urinalysis showed proteinuria and also consulted to assist in managing this. She denies any voiding difficulties, no frequency or urgency or dysuria. She has not been told she has proteinuria in the past. No history of chronic ingestion of nonsteroidal anti-inflammatory drugs. Objective - Exam Narrative Exam: Middle-aged obese -Filipino female lying in bed in no acute distress HEENT: NCAT, pink oral mucous membrane Neck: Supple, no venous distention CVS: S1S2 RRR with no murmur, rub or gallop. Heart sounds distant Chest: Diminished breath sounds Abdomen: Obese, edema anterior lateral abdominal wall, soft, nontender, no organomegaly, bowel sounds are present Extremities: 2-3+ pitting edema Skin with pigmentary changes and scratch frank. Genitourinary deferred Neuro: Awake, alert no focal deficits - Vital Signs Vital signs: Vital Signs - 12hr 06/27/18 06/28/18 06/28/18 23:19 00:00 04:15 Temperature 98.4 F 98.1 F Pulse Rate 71 71 71 Respiratory 18 18 Rate Blood Pressure 148/75 134/67 O2 Sat by Pulse 99 99 Oximetry 06/28/18 06/28/18 06/28/18 10:08 10:46 10:47 Temperature Pulse Rate 76 76 76 Respiratory Rate Blood Pressure 145/91 145/91 145/91 O2 Sat by Pulse 98 Oximetry - Lab 06/25/18 06:10 06/27/18 05:28 Most recent lab results Calcium 8.2 mg/dL (8.4-10.2) L 06/25/18 17:01 Medications & Allergies - Medications Allergies/Adverse Reactions: Allergies lisinopril Allergy (Verified 02/24/18 09:15) Anaphylaxis Penicillins Allergy (Verified 02/24/18 09:15) Seizure Sulfa (Sulfonamide Antibiotics) Adverse Reaction (Verified 02/24/18 09:15) Hives Home Medications: Home Medications Medication Instructions Recorded Confirmed Last Taken Type Aspirin [Adult Aspirin] 81 mg PO DAILY 02/24/18 06/25/18 05/09/18 History Clopidogrel Bisulfate [Plavix] 75 mg PO QDAY 02/24/18 06/25/18 05/09/18 History Duloxetine HCl 40 mg PO QDAY 02/24/18 06/25/18 05/09/18 History Spironolactone [Aldactone] 25 mg PO QDAY 02/24/18 06/25/18 05/09/18 History buPROPion SR [Wellbutrin SR] 150 mg PO BID 02/24/18 06/25/18 05/09/18 History Albuterol Sulfate [Ventolin HFA] 1 puff IH Q6H PRN 30 Days 03/03/18 06/25/18 05/09/18 Rx [email or web address] Buspirone HCl [busPIRone] 15 mg PO BID 05/10/18 06/25/18 05/09/18 History Carvedilol 12.5 mg PO BID 05/10/18 06/25/18 05/09/18 History Cyclobenzaprine [Flexeril] 10 mg PO TID PRN 05/10/18 06/25/18 05/09/18 History Diphenhydramine HCl [Allergy 25 mg PO DAILY 05/10/18 06/25/18 05/09/18 History Relief] Furosemide [Lasix] 80 mg PO DAILY 05/10/18 06/25/18 05/09/18 History ISOSORBIDE MONOnitrate [Imdur ER] 60 mg PO QDAY 05/10/18 06/25/18 05/09/18 History LORazepam [Ativan] 0.5 mg PO Q6H PRN 05/10/18 06/25/18 05/09/18 History Sertraline HCl [Zoloft] 50 mg PO DAILY 05/10/18 06/25/18 05/09/18 History hydrALAZINE [Apresoline] 25 mg PO Q8HR 05/10/18 06/25/18 05/09/18 History Active Medications: Generic Name Dose Route Start Last Admin Trade Name Freq PRN Reason Stop Dose Admin Acetaminophen 650 mg 06/25/18 21:06 06/27/18 19:00 Tylenol PO 650 mg Q6H PRN Administration Pain, Mild (1-3) Al Hydrox/Mg Hydrox/Simethicone 30 ml 06/26/18 11:43 Alum-Mag Hydrox-Simeth [id number] PO Q4H PRN Indigestion Apixaban 5 mg 06/27/18 22:00 06/28/18 10:47 Eliquis PO 5 mg Q12HR [facility] Administration Protocol Aspirin 81 mg 06/26/18 10:00 06/28/18 10:46 Halfprin Ec PO 81 mg DAILY [facility] Administration Bupropion HCl 150 mg 06/25/18 22:00 06/28/18 10:47 Wellbutrin Sr PO 150 mg BID [facility] Administration Buspirone HCl 15 mg 06/25/18 22:00 06/27/18 22:06 Buspar PO 15 mg BID [facility] Administration Carvedilol 12.5 mg 06/25/18 22:00 06/28/18 10:46 Coreg PO 12.5 mg BID [facility] Administration Cyclobenzaprine HCl 10 mg 06/25/18 10:34 06/25/18 22:22 Flexeril PO 10 mg TID PRN Administration Muscle Spasm Diphenhydramine HCl 25 mg 06/26/18 10:00 06/28/18 10:46 Benadryl PO 25 mg DAILY [facility] Administration Duloxetine HCl 30 mg 06/27/18 12:00 06/28/18 10:46 Cymbalta PO 30 mg QDAY [facility] Administration Furosemide 40 mg 06/25/18 18:00 06/28/18 06:25 Lasix IV 40 mg BID@0600,1800 [facility] Administration Hydralazine HCl 25 mg 06/25/18 14:00 06/28/18 06:25 Apresoline PO 25 mg Q8HR [facility] Administration Milrinone Lactate/Dextrose 20 mg in 100 mls @ 12.746 mls/hr 06/26/18 14:00 06/28/18 06:26 Milrinone-D5w 20 Mg/100 Ml IV 06/29/18 13:59 0.375 mcg/kg/min TITR [facility] 12.746 mls/hr Administration 0.375 MCG/KG/MIN Isosorbide Mononitrate 60 mg 06/26/18 10:00 06/28/18 10:47 Imdur PO 60 mg QDAY [facility] Administration Ondansetron HCl 4 mg 06/25/18 21:06 06/26/18 05:51 Zofran IV 4 mg Q4H PRN Administration Nausea And Vomiting Pantoprazole Sodium 40 mg 06/26/18 12:00 06/28/18 10:49 Protonix PO 40 mg QDAY [facility] Administration Sertraline HCl 50 mg 06/26/18 10:00 06/28/18 10:47 Zoloft PO Not Given DAILY [facility]
--- NOTE | 2018-06-28 11:37 | Progress Note ---
Assessment and Plan Medical therapy for heart failure exacerbation, coronary artery disease, ischemic cardiomyopathy and chronic systolic left ventricular dysfunction. Subjective Date of service: 06/28/18 Principal diagnosis: Proteinuria Interval history: Patient is comfortable, no new cardiac complaints. Objective Vital Signs Temp Pulse Resp BP BP Pulse Ox 06/28/18 10:47 76 145/91 06/28/18 10:46 76 145/91 06/28/18 10:08 76 145/91 98 06/28/18 04:15 98.1 F 71 18 134/67 99 06/28/18 00:00 98.4 F 71 18 148/75 99 06/27/18 23:19 71 06/27/18 20:01 98.3 F 69 18 143/67 97 06/27/18 18:30 64 138/100 98 06/27/18 17:44 63 20 106/53 100 06/27/18 17:43 98.0 F 06/27/18 13:57 62 94/54 - Physical Examination General: No Apparent Distress HEENT: Positive: PERRL Neck: Positive: trachea midline Cardiac: Positive: Reg Rate and Rhythm Lungs: Positive: Decreased Breath Sounds Neuro: Positive: Grossly Intact Abdomen: Positive: Soft Skin: Positive: Clear Extremities: Absent: edema
--- NOTE | 2018-06-28 11:38 | Consultation ---
History of Present Illness - Reason for Consult Consult date: 06/28/18 proteinuria Requesting physician: EDOUARD GUERRA - History of Present Illness 67-year-old lady with a history of coronary artery disease, congestive heart failure admitted on account of 1-2 week history of shortness of breath, orthopnea and lower extremity edema. Patient also had nausea on and off but no vomiting. She admits to dizziness when she bends over "I keep going down". She also admits to chest pain which is a constant substernal pain lasting for at least 2 weeks and radiating to her back with left shoulder pain with limitation of range of movement. Patient was admitted with impression of acute on chronic systolic heart failure. Patient will start on IV diuretics and also newly known was administered per clinical provider trainer. Urinalysis showed proteinuria and also consulted to assist in managing this. She denies any voiding difficulties, no frequency or urgency or dysuria. She has not been told she has proteinuria in the past. No history of chronic ingestion of nonsteroidal anti-inflammatory drugs. 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 denies: alcohol abuse, prescription drug abuse, IV drug use Family history: CAD (father of a myocardial function ? Age, one brother of heart attack in his 30s), cancer (mother of lung cancer at age 91. She was a smoker), other (one sister is awaiting a heart transplant) Medications and Allergies Allergies Allergy/AdvReac Type Severity Reaction Status Date / Time lisinopril Allergy Anaphylaxis Verified 02/24/18 09:15 Penicillins Allergy Seizure Verified 02/24/18 09:15 Sulfa (Sulfonamide AdvReac Hives Verified 02/24/18 09:15 Antibiotics) Home Medications Medication Instructions Recorded Confirmed Last Taken Type Aspirin [Adult Aspirin] 81 mg PO DAILY 02/24/18 06/25/18 05/09/18 History Clopidogrel Bisulfate [Plavix] 75 mg PO QDAY 02/24/18 06/25/18 05/09/18 History Duloxetine HCl 40 mg PO QDAY 02/24/18 06/25/18 05/09/18 History Spironolactone [Aldactone] 25 mg PO QDAY 02/24/18 06/25/18 05/09/18 History buPROPion SR [Wellbutrin SR] 150 mg PO BID 02/24/18 06/25/18 05/09/18 History Albuterol Sulfate [Ventolin HFA] 1 puff IH Q6H PRN 30 Days 03/03/18 06/25/18 05/09/18 Rx [email or web address] Buspirone HCl [busPIRone] 15 mg PO BID 05/10/18 06/25/18 05/09/18 History Carvedilol 12.5 mg PO BID 05/10/18 06/25/18 05/09/18 History Cyclobenzaprine [Flexeril] 10 mg PO TID PRN 05/10/18 06/25/18 05/09/18 History Diphenhydramine HCl [Allergy 25 mg PO DAILY 05/10/18 06/25/18 05/09/18 History Relief] Furosemide [Lasix] 80 mg PO DAILY 05/10/18 06/25/18 05/09/18 History ISOSORBIDE MONOnitrate [Imdur ER] 60 mg PO QDAY 05/10/18 06/25/18 05/09/18 History LORazepam [Ativan] 0.5 mg PO Q6H PRN 05/10/18 06/25/18 05/09/18 History Sertraline HCl [Zoloft] 50 mg PO DAILY 05/10/18 06/25/18 05/09/18 History hydrALAZINE [Apresoline] 25 mg PO Q8HR 05/10/18 06/25/18 05/09/18 History Active Meds: Active Medications Acetaminophen (Tylenol) 650 mg PO Q6H PRN PRN Reason: Pain, Mild (1-3) Last Admin: 06/27/18 19:00 Dose: 650 mg Documented by: Al Hydrox/Mg Hydrox/Simethicone (Alum-Mag Hydrox-Simeth [phone]/5ml) 30 ml PO Q4H PRN PRN Reason: Indigestion Apixaban (Eliquis) 5 mg PO Q12HR RADHA; Protocol Last Admin: 06/28/18 10:47 Dose: 5 mg Documented by: Aspirin (Halfprin Ec) 81 mg PO DAILY [facility] Last Admin: 06/28/18 10:46 Dose: 81 mg Documented by: Bupropion HCl (Wellbutrin Sr) 150 mg PO BID [facility] Last Admin: 06/28/18 10:47 Dose: 150 mg Documented by: Buspirone HCl (Buspar) 15 mg PO BID [facility] Last Admin: 06/27/18 22:06 Dose: 15 mg Documented by: Carvedilol (Coreg) 12.5 mg PO BID [facility] Last Admin: 06/28/18 10:46 Dose: 12.5 mg Documented by: Cyclobenzaprine HCl (Flexeril) 10 mg PO TID PRN PRN Reason: Muscle Spasm Last Admin: 06/25/18 22:22 Dose: 10 mg Documented by: Diphenhydramine HCl (Benadryl) 25 mg PO DAILY [facility] Last Admin: 06/28/18 10:46 Dose: 25 mg Documented by: Duloxetine HCl (Cymbalta) 30 mg PO QDAY [facility] Last Admin: 06/28/18 10:46 Dose: 30 mg Documented by: Furosemide (Lasix) 40 mg IV BID@0600,1800 [facility] Last Admin: 06/28/18 06:25 Dose: 40 mg Documented by: Hydralazine HCl (Apresoline) 25 mg PO Q8HR [facility] Last Admin: 06/28/18 06:25 Dose: 25 mg Documented by: Milrinone Lactate/Dextrose (Milrinone-D5w 20 Mg/100 Ml) 20 mg in 100 mls @ 12.746 mls/hr IV TITR [facility] Stop: 06/29/18 13:59 Last Admin: 06/28/18 06:26 Dose: 0.375 mcg/kg/min, 12.746 mls/hr Documented by: Isosorbide Mononitrate (Imdur) 60 mg PO QDAY [facility] Last Admin: 06/28/18 10:47 Dose: 60 mg Documented by: Ondansetron HCl (Zofran) 4 mg IV Q4H PRN PRN Reason: Nausea And Vomiting Last Admin: 06/26/18 05:51 Dose: 4 mg Documented by: Pantoprazole Sodium (Protonix) 40 mg PO QDAY [facility] Last Admin: 06/28/18 10:49 Dose: 40 mg Documented by: Sertraline HCl (Zoloft) 50 mg PO DAILY [facility] Last Admin: 06/28/18 10:47 Dose: Not Given Documented by: Review of Systems All systems: negative (Constitutional: no fever or chills. Appetite is diminished but no weight loss. HEENT: No sore throat or sinus drainage no hearing or vision impairment . Cardiovascular: See history of present illness Respiratory: Distal cough productive of whitish sputum. No hemoptysis or wheezing. Gastrointestinal: Admits to nausea and vomiting. Has epigastric pain. It hurts to eat she states. No diarrhea, Hematemesis or melena. Genitourinary: Admits to urinary frequency, no urgency, dysuria or hematuria. hematologic: No abnormal bleeding admits to easy bruising. Integumentary: Admits to itching but no rash. Neurological: Admits to headaches and dizziness. No focal weakness or numbness, no syncope or seizures. Musculoskeletal: Admits to joint pain and stiffness in knees and ankles. Psychiatry: Admits to both anxiety and depression) Exam - Vital Signs Vital signs: Vital Signs Temp Resp BP Pulse Ox 98.2 F 18 128/77 100 06/25/18 05:46 06/25/18 05:46 06/25/18 05:46 06/25/18 05:46 Results - Lab Results 06/25/18 06:10 06/27/18 05:28 Most recent lab results Calcium 8.2 mg/dL (8.4-10.2) L 06/25/18 17:01 Assessment and Plan - Patient Problems (1) Proteinuria Current Visit: Yes Status: Acute Plan to address problem: Proteinuria etiology uncertain. If significant in the nephrotic range, may be contributing to edema/fluid retention. Will quantify proteinuria and check serologies. Further management depending on the results (2) Acute on chronic systolic heart failure Current Visit: Yes Status: Acute Plan to address problem: Due to noncompliance to dietary sodium and fluid restriction. Continue gentle diuresis and encourage adherence (3) Chest pain Current Visit: Yes Status: Acute Plan to address problem: Substernal chest pain. (4) Hyperlipidemia Current Visit: No Status: Chronic Qualifiers: Hyperlipidemia type: mixed hyperlipidemia Qualified Code(s): E78.2 - Mixed hyperlipidemia Plan to address problem: Continue hypolipidemic agents (5) Hypertension Current Visit: No Status: Chronic Qualifiers: Hypertension type: essential hypertension Qualified Code(s): I10 - Essential (primary) hypertension Plan to address problem: Follow blood pressure on current medications
--- NOTE | 2018-06-28 15:28 | Progress Note ---
Assessment and Plan Assessment and plan: 67F who is admitted for sob, pedal edema, orthopnea Diagnosis Acute on chronic systolic CHF, EF 10, sp AICD Acute respiratory failure pulmonary edema CP likely due to CHF Peptic ulcer disease with abdominal pain due to noncompliance with PPI proteinuria Plan -IV diuretics, optimize cardiac meds, oxygen prn cardiology consult appreciated, cont milrinone drip, add now on eliquis -oxygen and pain meds as needed -Reviewed GI notes, she has had recent EGD which confirmed peptic ulcers, patient was put on PPI, but she has not been taking it, PPI was restarted -Renal consult to eval for proteinuria DVT ppx chemical History Interval history: Review of systems Constitutional: No fevers, no malaise, no joint pains CVS: Chest pain has now resolved, still complaining of shortness of breath and b ipedal edema, and orthopnea GI: no abdo pain today Respiratory: no wheezing, no coughing Hospitalist Physical - Physical exam Narrative exam: General.: Appears well, no distress, nontoxic HEENT: Moist mucous membranes, extraocular muscles intact, no lymphadenopathy Neck: supple Cardiac: S1-S2 heard Lungs: Bibasilar crackles Abdomen: soft , nontender, nondistended, bowel sounds positive Extremities: Bipedal edema Skin: no rash or lesions Neurologic: no gross focal deficits Psych: calm, and cooperative - Constitutional Vitals: Temp Pulse Resp BP Pulse Ox 98.1 F 76 18 145/91 98 06/28/18 04:15 06/28/18 10:47 06/28/18 04:15 06/28/18 10:47 06/28/18 10:08 General appearance: Present: no acute distress, well-nourished Results - Labs CBC & Chem 7: 06/25/18 06:10 06/30/18 07:23 Labs: Laboratory Last Values WBC 4.1 K/mm3 (4.5-11.0) L 06/25/18 06:10 RBC 3.21 M/mm3 (3.65-5.03) L 06/25/18 06:10 Hgb 11.1 gm/dl (10.1-14.3) 06/25/18 06:10 Hct 34.2 % (30.3-42.9) 06/25/18 06:10 MCV 107 fl (79-97) H 06/25/18 06:10 MCH 35 pg (28-32) H 06/25/18 06:10 MCHC 33 % (30-34) 06/25/18 06:10 RDW 15.5 % (13.2-15.2) H 06/25/18 06:10 Plt Count 187 K/mm3 (140-440) 06/25/18 06:10 Lymph % (Auto) 4.9 % (13.4-35.0) L 06/25/18 06:10 [place] % (Auto) 10.3 % (0.0-7.3) H 06/25/18 06:10 Eos % (Auto) 0.9 % (0.0-4.3) 06/25/18 06:10 Baso % (Auto) 0.3 % (0.0-1.8) 06/25/18 06:10 Lymph # 0.2 K/mm3 (1.2-5.4) L 06/25/18 06:10 [place] # 0.4 K/mm3 (0.0-0.8) 06/25/18 06:10 Eos # 0.0 K/mm3 (0.0-0.4) 06/25/18 06:10 Baso # 0.0 K/mm3 (0.0-0.1) 06/25/18 06:10 Seg Neutrophils % 83.6 % (40.0-70.0) H 06/25/18 06:10 Seg Neutrophils # 3.4 K/mm3 (1.8-7.7) 06/25/18 06:10 Sodium 140 mmol/L (137-145) 06/25/18 17:01 Potassium 4.4 mmol/L (3.6-5.0) 06/27/18 05:28 Chloride 105.2 mmol/L (98-107) 06/25/18 17:01 Carbon Dioxide 29 mmol/L (22-30) 06/25/18 17:01 Anion Gap 11 mmol/L 06/25/18 17:01 BUN 19 mg/dL (7-17) H 06/25/18 17:01 Creatinine 0.7 mg/dL (0.7-1.2) 06/25/18 17:01 Estimated GFR > 60 ml/min 06/25/18 17:01 BUN/Creatinine Ratio 27 % 06/25/18 17:01 Glucose 97 mg/dL (65-100) 06/25/18 17:01 Calcium 8.2 mg/dL (8.4-10.2) L 06/25/18 17:01 Total Creatine Kinase 192 units/L (30-135) H 06/25/18 06:10 CK-MB (CK-2) 3.1 ng/mL (0.0-4.0) 06/25/18 06:10 CK-MB (CK-2) Rel Index 1.6 (0-4) 06/25/18 06:10 Troponin T < 0.010 ng/mL (0.00-0.029) 06/25/18 06:10 NT-Pro-B Natriuret Pep 7516 pg/mL (0-900) H 06/25/18 06:10 Urine Color [place]onda (Yellow) 06/25/18 08:08 Urine Turbidity Clear (Clear) 06/25/18 08:08 Urine pH 6.0 (5.0-7.0) 06/25/18 08:08 Ur Specific [place] 1.025 (1.003-1.030) 06/25/18 08:08 Urine Protein >2000 mg dl mg/dL (Negative) 06/25/18 08:08 Urine Glucose (UA) Neg mg/dL (Negative) 06/25/18 08:08 Urine Ketones Neg mg/dL (Negative) 06/25/18 08:08 Urine Blood Neg (Negative) 06/25/18 08:08 Urine Nitrite Neg (Negative) 06/25/18 08:08 Urine Bilirubin Neg (Negative) 06/25/18 08:08 Urine Urobilinogen 2.0 mg/dL (<2.0) 06/25/18 08:08 Ur Leukocyte Esterase Neg (Negative) 06/25/18 08:08 Urine WBC (Auto) < 1.0 /HPF (0.0-6.0) 06/25/18 08:08 Urine RBC (Auto) 2.0 /HPF (0.0-6.0) 06/25/18 08:08 U Epithel Cells (Auto) 1.0 /HPF (0-13.0) 06/25/18 08:08 Urine Mucus Few /HPF 06/25/18 08:08
[2018-06-28] MEDS: ZOFRAN IV PRN (18:32)
[2018-06-29] MEDS: MILRINONE-D5W 20 MG/100 ML 20 MG/100 ML BAG IV SCH ×2 (02:36→10:42)
[2018-06-29] MEDS: APRESOLINE PO SCH ×3 (06:13→21:13)
[2018-06-29] MEDS: LASIX IV SCH ×2 (06:13→18:41)
[2018-06-29 08:38] LABS: BUN/Creatinine Ratio 19; Blood Urea Nitrogen 17 mg/dL (7-17); Calcium 8.2 mg/dL (8.4-10.2); Hemolysis Index 10
[2018-06-29] MEDS: ELIQUIS PO SCH ×2 (10:50→21:12)
[2018-06-29] MEDS: CYMBALTA PO SCH (10:50)
[2018-06-29] MEDS: HALFPRIN EC PO SCH (10:51)
[2018-06-29] MEDS: BENADRYL PO SCH (10:51)
[2018-06-29] MEDS: PROTONIX PO SCH (10:51)
[2018-06-29] MEDS: WELLBUTRIN SR PO SCH ×2 (10:53→21:11)
[2018-06-29] MEDS: ZOLOFT PO SCH (10:54)
[2018-06-29] MEDS: IMDUR PO SCH (10:54)
[2018-06-29] MEDS: COREG PO SCH ×2 (10:55→21:12)
--- NOTE | 2018-06-29 11:52 | Progress Note ---
Assessment and Plan Medical therapy for heart failure exacerbation, coronary artery disease, ischemic cardiomyopathy and chronic systolic left ventricular dysfunction. Subjective Date of service: 06/29/18 Principal diagnosis: Proteinuria Interval history: Patient is comfortable, no acute distress. She is on milrinone infusion. Objective Vital Signs Temp Pulse Resp BP Pulse Ox 06/29/18 10:55 61 120/56 06/29/18 04:22 98.1 F 61 18 120/56 100 06/28/18 23:29 98.4 F 67 18 116/74 98 06/28/18 22:40 63 06/28/18 20:01 98.2 F 73 18 130/70 100 - Physical Examination General: No Apparent Distress HEENT: Positive: PERRL Neck: Positive: trachea midline Cardiac: Positive: Reg Rate and Rhythm Lungs: Positive: Decreased Breath Sounds Neuro: Positive: Grossly Intact Abdomen: Positive: Soft Skin: Positive: Clear Extremities: Absent: edema - Labs and Meds Comprehensive Metabolic Panel 06/29/18 Range/Units 07:47 Sodium 138 (137-145) mmol/L Potassium 3.9 (3.6-5.0) mmol/L Chloride 101.2 (98-107) mmol/L Carbon Dioxide 31 H (22-30) mmol/L BUN 17 (7-17) mg/dL Creatinine 0.9 (0.7-1.2) mg/dL Glucose 100 (65-100) mg/dL Calcium 8.2 L (8.4-10.2) mg/dL
[2018-06-29] MEDS: BUSPAR PO SCH ×2 (12:05→21:13)
[2018-06-29] MEDS ORDERED: SORBITOL 70% PO PRN (15:15)
--- NOTE | 2018-06-29 15:15 | Progress Note ---
Assessment and Plan - Patient Problems (1) Proteinuria Current Visit: Yes Status: Acute Plan to address problem: Proteinuria etiology uncertain. If significant in the nephrotic range, may be contributing to edema/fluid retention. Will quantify proteinuria and check serologies. Follow up 24 hr urine and serologies which are pending except for hepatitis C antibody which is negative (2) Acute on chronic systolic heart failure Current Visit: Yes Status: Acute Plan to address problem: Due to noncompliance to dietary sodium and fluid restriction. Continue gentle diuresis and encourage adherence (3) Chest pain Current Visit: Yes Status: Acute Plan to address problem: Substernal chest pain attributed to peptic ulcer disease which is EGD proven. Noncompliant with proton pump inhibitor which has been restarted. Management by primary attending (4) Hyperlipidemia Current Visit: No Status: Chronic Qualifiers: Hyperlipidemia type: mixed hyperlipidemia Qualified Code(s): E78.2 - Mixed hyperlipidemia Plan to address problem: Continue hypolipidemic agents (5) Hypertension Current Visit: No Status: Chronic Qualifiers: Hypertension type: essential hypertension Qualified Code(s): I10 - Essential (primary) hypertension Plan to address problem: Follow blood pressure on current medications (6) Constipation Current Visit: Yes Status: Acute Plan to address problem: Nausea may be related to this or PUD. Give laxative Subjective Date of service: 06/29/18 Principal diagnosis: Proteinuria Interval history: Patient seen lying in bed. She complains of nausea and dizziness today. Also complaining of constipation. No shortness of breath. Still swollen Objective - Exam Narrative Exam: Middle-aged obese -[place] female lying in bed in no acute distress HEENT: NCAT, pink oral mucous membrane Neck: Supple, no venous distention CVS: S1S2 RRR with no murmur, rub or gallop. Heart sounds distant Chest: Diminished breath sounds Abdomen: Obese, edema anterior lateral abdominal wall, soft, nontender, no organomegaly, bowel sounds are present Extremities: 2-3+ pitting edema Skin with pigmentary changes and scratch frank. Genitourinary deferred Neuro: Awake, alert no focal deficits - Vital Signs Vital signs: Vital Signs - 12hr 06/29/18 06/29/18 06/29/18 04:22 10:00 10:55 Temperature 98.1 F Pulse Rate 61 71 61 Respiratory 18 Rate Blood Pressure 120/56 120/56 O2 Sat by Pulse 100 Oximetry - Lab 06/25/18 06:10 06/29/18 07:47 Most recent lab results Calcium 8.2 mg/dL (8.4-10.2) L 06/29/18 07:47 Magnesium 1.70 mg/dL (1.7-2.3) 06/29/18 07:47 Medications & Allergies - Medications Allergies/Adverse Reactions: Allergies lisinopril Allergy (Verified 02/24/18 09:15) Anaphylaxis Penicillins Allergy (Verified 02/24/18 09:15) Seizure Sulfa (Sulfonamide Antibiotics) Adverse Reaction (Verified 02/24/18 09:15) Hives Home Medications: Home Medications Medication Instructions Recorded Confirmed Last Taken Type Aspirin [Adult Aspirin] 81 mg PO DAILY 02/24/18 06/25/18 05/09/18 History Clopidogrel Bisulfate [Plavix] 75 mg PO QDAY 02/24/18 06/25/18 05/09/18 History Duloxetine HCl 40 mg PO QDAY 02/24/18 06/25/18 05/09/18 History Spironolactone [Aldactone] 25 mg PO QDAY 02/24/18 06/25/18 05/09/18 History buPROPion SR [Wellbutrin SR] 150 mg PO BID 02/24/18 06/25/18 05/09/18 History Albuterol Sulfate [Ventolin HFA] 1 puff IH Q6H PRN 30 Days 03/03/18 06/25/18 05/09/18 Rx [email or web address] Buspirone HCl [busPIRone] 15 mg PO BID 05/10/18 06/25/18 05/09/18 History Carvedilol 12.5 mg PO BID 05/10/18 06/25/18 05/09/18 History Cyclobenzaprine [Flexeril] 10 mg PO TID PRN 05/10/18 06/25/18 05/09/18 History Diphenhydramine HCl [Allergy 25 mg PO DAILY 05/10/18 06/25/18 05/09/18 History Relief] Furosemide [Lasix] 80 mg PO DAILY 05/10/18 06/25/18 05/09/18 History ISOSORBIDE MONOnitrate [Imdur ER] 60 mg PO QDAY 05/10/18 06/25/18 05/09/18 History LORazepam [Ativan] 0.5 mg PO Q6H PRN 05/10/18 06/25/18 05/09/18 History Sertraline HCl [Zoloft] 50 mg PO DAILY 05/10/18 06/25/18 05/09/18 History hydrALAZINE [Apresoline] 25 mg PO Q8HR 05/10/18 06/25/18 05/09/18 History Active Medications: Generic Name Dose Route Start Last Admin Trade Name Freq PRN Reason Stop Dose Admin Acetaminophen 650 mg 06/25/18 21:06 06/27/18 19:00 Tylenol PO 650 mg Q6H PRN Administration Pain, Mild (1-3) Al Hydrox/Mg Hydrox/Simethicone 30 ml 06/26/18 11:43 Alum-Mag Hydrox-Simeth [phone]/5ml PO Q4H PRN Indigestion Apixaban 5 mg 06/27/18 22:00 06/29/18 10:50 Eliquis PO 5 mg Q12HR RADHA Administration Protocol Aspirin 81 mg 06/26/18 10:00 06/29/18 10:51 Halfprin Ec PO 81 mg DAILY [facility] Administration Bupropion HCl 150 mg 06/25/18 22:00 06/29/18 10:53 Wellbutrin Sr PO 150 mg BID RADHA Administration Buspirone HCl 15 mg 06/25/18 22:00 06/29/18 12:05 Buspar PO 15 mg BID RADHA Administration Carvedilol 12.5 mg 06/25/18 22:00 06/29/18 10:55 Coreg PO 12.5 mg BID RADHA Administration Cyclobenzaprine HCl 10 mg 06/25/18 10:34 06/25/18 22:22 Flexeril PO 10 mg TID PRN Administration Muscle Spasm Diphenhydramine HCl 25 mg 06/26/18 10:00 06/29/18 10:51 Benadryl PO 25 mg DAILY [facility] Administration Duloxetine HCl 30 mg 06/27/18 12:00 06/29/18 10:50 Cymbalta PO 30 mg QDAY [facility] Administration Furosemide 40 mg 06/25/18 18:00 06/29/18 06:13 Lasix IV 40 mg BID@0600,1800 [facility] Administration Hydralazine HCl 25 mg 06/25/18 14:00 06/29/18 06:13 Apresoline PO 25 mg Q8HR RADHA Administration Isosorbide Mononitrate 60 mg 06/26/18 10:00 06/29/18 10:54 Imdur PO 60 mg QDAY [facility] Administration Ondansetron HCl 4 mg 06/25/18 21:06 06/28/18 18:32 Zofran IV 4 mg Q4H PRN Administration Nausea And Vomiting Pantoprazole Sodium 40 mg 06/26/18 12:00 06/29/18 10:51 Protonix PO 40 mg QDAY [facility] Administration Sertraline HCl 50 mg 06/26/18 10:00 06/29/18 10:54 Zoloft PO Not Given DAILY [facility]
--- NOTE | 2018-06-29 15:33 | Progress Note ---
Assessment and Plan Assessment and plan: 67F who is admitted for sob, pedal edema, orthopnea Diagnosis Acute on chronic systolic CHF, EF 10, sp AICD Acute respiratory failure pulmonary edema CP likely due to CHF Peptic ulcer disease with abdominal pain due to noncompliance with PPI proteinuria Plan -IV diuretics, optimize cardiac meds, oxygen prn cardiology consult appreciated, cont milrinone drip, add now on eliquis -oxygen and pain meds as needed -Reviewed GI notes, she has had recent EGD which confirmed peptic ulcers, patient was put on PPI, but she has not been taking it, PPI was restarted -Renal consult to eval for proteinuria DVT ppx chemical History Interval history: Review of systems Constitutional: No fevers, no malaise, no joint pains CVS: Chest pain has now resolved, still complaining of shortness of breath and b ipedal edema, and orthopnea GI: no abdo pain today Respiratory: no wheezing, no coughing Hospitalist Physical - Physical exam Narrative exam: General.: Appears well, no distress, nontoxic HEENT: Moist mucous membranes, extraocular muscles intact, no lymphadenopathy Neck: supple Cardiac: S1-S2 heard Lungs: Bibasilar crackles Abdomen: soft , nontender, nondistended, bowel sounds positive Extremities: Bipedal edema Skin: no rash or lesions Neurologic: no gross focal deficits Psych: calm, and cooperative - Constitutional Vitals: Temp Pulse Resp BP Pulse Ox 98.1 F 61 18 120/56 100 06/29/18 04:22 06/29/18 10:55 06/29/18 04:22 06/29/18 10:55 06/29/18 04:22 General appearance: Present: no acute distress, well-nourished Results - Labs CBC & Chem 7: 06/25/18 06:10 06/30/18 07:23 Labs: Laboratory Last Values WBC 4.1 K/mm3 (4.5-11.0) L 06/25/18 06:10 RBC 3.21 M/mm3 (3.65-5.03) L 06/25/18 06:10 Hgb 11.1 gm/dl (10.1-14.3) 06/25/18 06:10 Hct 34.2 % (30.3-42.9) 06/25/18 06:10 MCV 107 fl (79-97) H 06/25/18 06:10 MCH 35 pg (28-32) H 06/25/18 06:10 MCHC 33 % (30-34) 06/25/18 06:10 RDW 15.5 % (13.2-15.2) H 06/25/18 06:10 Plt Count 187 K/mm3 (140-440) 06/25/18 06:10 Lymph % (Auto) 4.9 % (13.4-35.0) L 06/25/18 06:10 [place] % (Auto) 10.3 % (0.0-7.3) H 06/25/18 06:10 Eos % (Auto) 0.9 % (0.0-4.3) 06/25/18 06:10 Baso % (Auto) 0.3 % (0.0-1.8) 06/25/18 06:10 Lymph # 0.2 K/mm3 (1.2-5.4) L 06/25/18 06:10 [place] # 0.4 K/mm3 (0.0-0.8) 06/25/18 06:10 Eos # 0.0 K/mm3 (0.0-0.4) 06/25/18 06:10 Baso # 0.0 K/mm3 (0.0-0.1) 06/25/18 06:10 Seg Neutrophils % 83.6 % (40.0-70.0) H 06/25/18 06:10 Seg Neutrophils # 3.4 K/mm3 (1.8-7.7) 06/25/18 06:10 Sodium 138 mmol/L (137-145) 06/29/18 07:47 Potassium 3.9 mmol/L (3.6-5.0) 06/29/18 07:47 Chloride 101.2 mmol/L (98-107) 06/29/18 07:47 Carbon Dioxide 31 mmol/L (22-30) H 06/29/18 07:47 Anion Gap 10 mmol/L 06/29/18 07:47 BUN 17 mg/dL (7-17) 06/29/18 07:47 Creatinine 0.9 mg/dL (0.7-1.2) 06/29/18 07:47 Estimated GFR > 60 ml/min 06/29/18 07:47 BUN/Creatinine Ratio 19 % 06/29/18 07:47 Glucose 100 mg/dL (65-100) 06/29/18 07:47 Calcium 8.2 mg/dL (8.4-10.2) L 06/29/18 07:47 Magnesium 1.70 mg/dL (1.7-2.3) 06/29/18 07:47 Total Creatine Kinase 192 units/L (30-135) H 06/25/18 06:10 CK-MB (CK-2) 3.1 ng/mL (0.0-4.0) 06/25/18 06:10 CK-MB (CK-2) Rel Index 1.6 (0-4) 06/25/18 06:10 Troponin T < 0.010 ng/mL (0.00-0.029) 06/25/18 06:10 NT-Pro-B Natriuret Pep 7516 pg/mL (0-900) H 06/25/18 06:10 Urine Color [place] (Yellow) 06/25/18 08:08 Urine Turbidity Clear (Clear) 06/25/18 08:08 Urine pH 6.0 (5.0-7.0) 06/25/18 08:08 Ur Specific [place] 1.025 (1.003-1.030) 06/25/18 08:08 Urine Protein >2000 mg dl mg/dL (Negative) 06/25/18 08:08 Urine Glucose (UA) Neg mg/dL (Negative) 06/25/18 08:08 Urine Ketones Neg mg/dL (Negative) 06/25/18 08:08 Urine Blood Neg (Negative) 06/25/18 08:08 Urine Nitrite Neg (Negative) 06/25/18 08:08 Urine Bilirubin Neg (Negative) 06/25/18 08:08 Urine Urobilinogen 2.0 mg/dL (<2.0) 06/25/18 08:08 Ur Leukocyte Esterase Neg (Negative) 06/25/18 08:08 Urine WBC (Auto) < 1.0 /HPF (0.0-6.0) 06/25/18 08:08 Urine RBC (Auto) 2.0 /HPF (0.0-6.0) 06/25/18 08:08 U Epithel Cells (Auto) 1.0 /HPF (0-13.0) 06/25/18 08:08 Urine Mucus Few /HPF 06/25/18 08:08 Hepatitis C Antibody Non-reactive (NonReactive) 06/29/18 07:47
[2018-06-29] MEDS: TYLENOL PO PRN (21:08)
[2018-06-29] MEDS: COLACE PO SCH (21:12)
[2018-06-29 23:27] LABS: Creatinine 24 Hour,Urine 0.5 (0.8-2.8)
[2018-06-30] MEDS: ZOFRAN IV PRN (02:04)
[2018-06-30] MEDS: LASIX IV SCH ×2 (05:19→19:17)
[2018-06-30] MEDS: APRESOLINE PO SCH ×3 (05:19→21:09)
[2018-06-30 07:52] LABS: BUN/Creatinine Ratio 22; Blood Urea Nitrogen 20 mg/dL (7-17); Hemolysis Index 9
[2018-06-30] MEDS: BUSPAR PO SCH ×2 (09:18→21:09)
[2018-06-30] MEDS: PROTONIX PO SCH (09:18)
[2018-06-30] MEDS: HALFPRIN EC PO SCH (09:18)
[2018-06-30] MEDS: COLACE PO SCH ×2 (09:19→21:12)
[2018-06-30] MEDS: ZOLOFT PO SCH (09:19)
[2018-06-30] MEDS: CYMBALTA PO SCH (09:19)
[2018-06-30] MEDS: BENADRYL PO SCH (09:19)
[2018-06-30] MEDS: WELLBUTRIN SR PO SCH ×2 (09:19→21:12)
[2018-06-30] MEDS: IMDUR PO SCH (09:19)
[2018-06-30] MEDS: COREG PO SCH ×2 (09:19→21:09)
[2018-06-30] MEDS: ELIQUIS PO SCH ×2 (09:19→21:09)
--- NOTE | 2018-06-30 11:20 | Progress Note ---
Assessment and Plan Acute on chronic systolic heart failure Hx of coronary artery disease cardiac cath 03/2018 revealed patent SVG to LAD, SVG to OM and SVG to PDA, Patent diagonal stent, LVEF 10-15%. Hx of Ischemic cardiomyopathy, ejection fraction 10-15%. Presence of single chamber cardiac defibrillator underlying paroxysmal atrial fibrillation previously treated with eliquis for oral anticoagulation therapy. Tobacco abuse Recommendations: Continue medical therapy for chronic systolic heart failure, coronary artery disease and paroxysmal Afib. LUE doppler for rule out DVT. Subjective Date of service: 06/30/18 Principal diagnosis: Proteinuria Interval history: Patient reports her breathing is better. Noted swelling of LUE. Objective Vital Signs Temp Pulse Resp BP BP Pulse Ox 06/30/18 05:19 134/64 06/29/18 23:26 98 F 56 L 18 117/56 100 06/29/18 22:00 63 06/29/18 21:13 113/63 06/29/18 21:12 113/63 06/29/18 20:00 98 06/29/18 19:23 59 L 20 113/63 98 06/29/18 16:18 98.3 F 62 20 95/54 98 - Physical Examination General: No Apparent Distress HEENT: Positive: PERRL Neck: Positive: trachea midline Cardiac: Positive: Reg Rate and Rhythm Lungs: Positive: Decreased Breath Sounds Neuro: Positive: Grossly Intact Extremities: Absent: edema - Labs and Meds Comprehensive Metabolic Panel 06/30/18 Range/Units 07:23 Sodium 139 (137-145) mmol/L Potassium 4.6 (3.6-5.0) mmol/L Chloride 100.2 (98-107) mmol/L Carbon Dioxide 33 H (22-30) mmol/L BUN 20 H (7-17) mg/dL Creatinine 0.9 (0.7-1.2) mg/dL Glucose 102 H (65-100) mg/dL Calcium 8.0 L (8.4-10.2) mg/dL
--- NOTE | 2018-06-30 11:35 | Progress Note ---
Assessment and Plan Assessment and plan: 67F who is admitted for sob, pedal edema, orthopnea Diagnosis Acute on chronic systolic CHF, EF 10, sp AICD Acute on chronic hypoxic respiratory failure (uses 3 L at home) pulmonary edema CP likely due to CHF Peptic ulcer disease with abdominal pain due to noncompliance with PPI proteinuria Plan -IV diuretics, optimize cardiac meds, oxygen prn cardiology consult appreciated, cont milrinone drip, add now on eliquis -oxygen and pain meds as needed -Reviewed GI notes, she has had recent EGD which confirmed peptic ulcers, patient was put on PPI, but she has not been taking it, PPI was restarted -Renal consult to eval for proteinuria DVT ppx chemical History Interval history: Review of systems Constitutional: No fevers, no malaise, no joint pains CVS: Chest pain has now resolved, still complaining of shortness of breath and bipedal edema, and orthopnea GI: no abdo pain today Respiratory: no wheezing, no coughing Hospitalist Physical - Physical exam Narrative exam: General.: Appears well, no distress, nontoxic HEENT: Moist mucous membranes, extraocular muscles intact, no lymphadenopathy Neck: supple Cardiac: S1-S2 heard Lungs: Bibasilar crackles Abdomen: soft , nontender, nondistended, bowel sounds positive Extremities: Bipedal edema Skin: no rash or lesions Neurologic: no gross focal deficits Psych: calm, and cooperative - Constitutional Vitals: Temp Pulse Resp BP Pulse Ox 98 F 56 L 18 134/64 100 06/29/18 23:26 06/29/18 23:26 06/29/18 23:26 06/30/18 05:19 06/29/18 23:26 General appearance: Present: no acute distress, well-nourished Results - Labs CBC & Chem 7: 06/25/18 06:10 06/30/18 07:23 Labs: Laboratory Last Values WBC 4.1 K/mm3 (4.5-11.0) L 06/25/18 06:10 RBC 3.21 M/mm3 (3.65-5.03) L 06/25/18 06:10 Hgb 11.1 gm/dl (10.1-14.3) 06/25/18 06:10 Hct 34.2 % (30.3-42.9) 06/25/18 06:10 MCV 107 fl (79-97) H 06/25/18 06:10 MCH 35 pg (28-32) H 06/25/18 06:10 MCHC 33 % (30-34) 06/25/18 06:10 RDW 15.5 % (13.2-15.2) H 06/25/18 06:10 Plt Count 187 K/mm3 (140-440) 06/25/18 06:10 Lymph % (Auto) 4.9 % (13.4-35.0) L 06/25/18 06:10 Mayes % (Auto) 10.3 % (0.0-7.3) H 06/25/18 06:10 Eos % (Auto) 0.9 % (0.0-4.3) 06/25/18 06:10 Baso % (Auto) 0.3 % (0.0-1.8) 06/25/18 06:10 Lymph # 0.2 K/mm3 (1.2-5.4) L 06/25/18 06:10 Mayes # 0.4 K/mm3 (0.0-0.8) 06/25/18 06:10 Eos # 0.0 K/mm3 (0.0-0.4) 06/25/18 06:10 Baso # 0.0 K/mm3 (0.0-0.1) 06/25/18 06:10 Seg Neutrophils % 83.6 % (40.0-70.0) H 06/25/18 06:10 Seg Neutrophils # 3.4 K/mm3 (1.8-7.7) 06/25/18 06:10 Sodium 139 mmol/L (137-145) 06/30/18 07:23 Potassium 4.6 mmol/L (3.6-5.0) 06/30/18 07:23 Chloride 100.2 mmol/L (98-107) 06/30/18 07:23 Carbon Dioxide 33 mmol/L (22-30) H 06/30/18 07:23 Anion Gap 10 mmol/L 06/30/18 07:23 BUN 20 mg/dL (7-17) H 06/30/18 07:23 Creatinine 0.9 mg/dL (0.7-1.2) 06/30/18 07:23 Estimated GFR > 60 ml/min 06/30/18 07:23 BUN/Creatinine Ratio 22 % 06/30/18 07:23 Glucose 102 mg/dL (65-100) H 06/30/18 07:23 Calcium 8.0 mg/dL (8.4-10.2) L 06/30/18 07:23 Magnesium 1.80 mg/dL (1.7-2.3) 06/30/18 07:23 Total Creatine Kinase 192 units/L (30-135) H 06/25/18 06:10 CK-MB (CK-2) 3.1 ng/mL (0.0-4.0) 06/25/18 06:10 CK-MB (CK-2) Rel Index 1.6 (0-4) 06/25/18 06:10 Troponin T < 0.010 ng/mL (0.00-0.029) 06/25/18 06:10 NT-Pro-B Natriuret Pep 7516 pg/mL (0-900) H 06/25/18 06:10 Urine Color Shonda (Yellow) 06/25/18 08:08 Urine Turbidity Clear (Clear) 06/25/18 08:08 Urine pH 6.0 (5.0-7.0) 06/25/18 08:08 Ur Specific [place] 1.025 (1.003-1.030) 06/25/18 08:08 Urine Protein >2000 mg dl mg/dL (Negative) 06/25/18 08:08 Urine Glucose (UA) Neg mg/dL (Negative) 06/25/18 08:08 Urine Ketones Neg mg/dL (Negative) 06/25/18 08:08 Urine Blood Neg (Negative) 06/25/18 08:08 Urine Nitrite Neg (Negative) 06/25/18 08:08 Urine Bilirubin Neg (Negative) 06/25/18 08:08 Urine Urobilinogen 2.0 mg/dL (<2.0) 06/25/18 08:08 Ur Leukocyte Esterase Neg (Negative) 06/25/18 08:08 Urine WBC (Auto) < 1.0 /HPF (0.0-6.0) 06/25/18 08:08 Urine RBC (Auto) 2.0 /HPF (0.0-6.0) 06/25/18 08:08 U Epithel Cells (Auto) 1.0 /HPF (0-13.0) 06/25/18 08:08 Urine Mucus Few /HPF 06/25/18 08:08 Urine Total Volume 1000 ml 06/29/18 22:50 Urine Creatinine 49.0 mg/dL (0.1-20.0) H 06/29/18 22:50 Ur Creatinine 24 Hour 0.5 (0.8-2.8) L 06/29/18 22:50 Ur Total Protein 24 Hr 90.00 mg/dL (2-200) 06/29/18 22:50 Urine Total Protein 9 mg/dL (5-11.8) 06/29/18 22:50 Hepatitis C Antibody Non-reactive (NonReactive) 06/29/18 07:47 Active Medications - Current Medications Current Medications: Generic Name Dose Route Start Last Admin Trade Name Freq PRN Reason Stop Dose Admin Acetaminophen 650 mg 06/25/18 21:06 06/29/18 21:08 Tylenol PO 650 mg Q6H PRN Administration Pain, Mild (1-3) Al Hydrox/Mg Hydrox/Simethicone 30 ml 06/26/18 11:43 06/30/18 02:04 Alum-Mag Hydrox-Simeth 743-420-70im/5ml PO 30 ml Q4H PRN Administration Indigestion Apixaban 5 mg 06/27/18 22:00 06/30/18 09:19 Eliquis PO 5 mg Q12HR RADHA Administration Protocol Aspirin 81 mg 06/26/18 10:00 06/30/18 09:18 Halfprin Ec PO 81 mg DAILY RADHA Administration Bupropion HCl 150 mg 06/25/18 22:00 06/30/18 09:19 Wellbutrin Sr PO 150 mg BID RADHA Administration Buspirone HCl 15 mg 06/25/18 22:00 06/30/18 09:18 Buspar PO 15 mg BID RADHA Administration Carvedilol 12.5 mg 06/25/18 22:00 06/30/18 09:19 Coreg PO 12.5 mg BID RADHA Administration Cyclobenzaprine HCl 10 mg 06/25/18 10:34 06/25/18 22:22 Flexeril PO 10 mg TID PRN Administration Muscle Spasm Diphenhydramine HCl 25 mg 06/26/18 10:00 06/30/18 09:19 Benadryl PO 25 mg DAILY [facility] Administration Docusate Sodium 100 mg 06/29/18 22:00 06/30/18 09:19 Colace PO 100 mg BID RADHA Administration Duloxetine HCl 30 mg 06/27/18 12:00 06/30/18 09:19 Cymbalta PO 30 mg QDAY RADHA Administration Furosemide 60 mg 06/30/18 18:00 Lasix IV 0600,1800 RADHA Hydralazine HCl 25 mg 06/25/18 14:00 06/30/18 05:19 Apresoline PO 25 mg Q8HR RADHA Administration Isosorbide Mononitrate 60 mg 06/26/18 10:00 06/30/18 09:19 Imdur PO 60 mg QDAY [facility] Administration Ondansetron HCl 4 mg 06/25/18 21:06 06/30/18 02:04 Zofran IV 4 mg Q4H PRN Administration Nausea And Vomiting Pantoprazole Sodium 40 mg 06/26/18 12:00 06/30/18 09:18 Protonix PO 40 mg QDAY [facility] Administration Sertraline HCl 50 mg 06/26/18 10:00 06/30/18 09:19 Zoloft PO 50 mg DAILY [facility] Administration Sorbitol 30 ml 06/29/18 15:15 Sorbitol 70% PO PRN PRN Constipation
--- NOTE | 2018-06-30 15:35 | Progress Note ---
Assessment and Plan - Patient Problems (1) Proteinuria Current Visit: Yes Status: Acute Plan to address problem: 24-hour urine study indicated only 90 mg of protein spillage. Urine creatinine noted as well as total urine volume of 1 L. Serologies are also pending. Hep C studies have been negative. I do not think that she has lower extremity swell ing secondary to significant proteinuria of renal etiology. I do think that her lower extremity edema and swelling is likely cardiac in etiology. (2) Acute on chronic systolic heart failure Current Visit: Yes Status: Acute Plan to address problem: Agree with current management per cardiology recommendations. Agree with current diuretic regimen. Urine studies indicated minimal proteinuria overall. I do think that a lot of her edema that we see is primarily cardiac in etiology. (3) Chest pain Current Visit: Yes Status: Acute Plan to address problem: Currently no chest pain this morning. Management per cardiology and primary attending. (4) Hypertension Current Visit: No Status: Chronic Qualifiers: Hypertension type: essential hypertension Qualified Code(s): I10 - Essent ial (primary) hypertension Plan to address problem: We'll monitor patient on current regimen. (5) Constipation Current Visit: Yes Status: Acute Plan to address problem: Management per primary team (6) Hyperlipidemia Current Visit: No Status: Chronic Qualifiers: Hyperlipidemia type: mixed hyperlipidemia Qualified Code(s): E78.2 - Mixed hyperlipidemia Plan to address problem: Therapeutic continue patient on current statin therapy. Subjective Date of service: 06/30/18 Principal diagnosis: Proteinuria Interval history: No acute issues overnight. Her milrinone has been discontinued at this time. She has been increased on her diuretic regimen. She is now on Lasix 60 mg IV twice a day. She has also been added on Zaroxolyn daily. She remains with significant lower extremity edema that is pitting at this time. Her 24-hour urine study noted with only minimal amount of protein in the sub-nephrotic range. Measurement of 90 mg of protein spillage in the 24-hour urine sample. Please note however that she only had 1 L of urine over that time. Urine creatinine levels noted. Objective - Vital Signs Vital signs: Vital Signs - 12hr 06/30/18 05:19 Blood Pressure 134/64 - General Appearance General appearance: well-developed, well-nourished, appears stated age EENT: ATNC, PERRL Neck: no JVD, no thyromegaly Respiratory: Present: Clear to Ascultation Cardiology: regular, S1S2 Gastrointestinal: normal, normoactive bowel sounds Integumentary: warm and dry Neurologic: no focal deficit Musculoskeletal: other (2+ pitting edema in bilateral lower extremities) Psychiatric: mood/affect appropriate, cooperative - Lab 06/25/18 06:10 06/30/18 07:23 Most recent lab results Calcium 8.0 mg/dL (8.4-10.2) L 06/30/18 07:23 Magnesium 1.80 mg/dL (1.7-2.3) 06/30/18 07:23 Urine Creatinine 49.0 mg/dL (0.1-20.0) H 06/29/18 22:50 Ur Total Protein 24 Hr 90.00 mg/dL (2-200) 06/29/18 22:50 Urine Total Protein 9 mg/dL (5-11.8) 06/29/18 22:50 - Allied health notes Allied health notes reviewed: nursing Medications & Allergies - Medications Allergies/Adverse Reactions: Allergies lisinopril Allergy (Verified 02/24/18 09:15) Anaphylaxis Penicillins Allergy (Verified 02/24/18 09:15) Seizure Sulfa (Sulfonamide Antibiotics) Adverse Reaction (Verified 02/24/18 09:15) Hives Home Medications: Home Medications Medication Instructions Recorded Confirmed Last Taken Type Aspirin [Adult Aspirin] 81 mg PO DAILY 02/24/18 06/25/18 05/09/18 History Clopidogrel Bisulfate [Plavix] 75 mg PO QDAY 02/24/18 06/25/18 05/09/18 History Duloxetine HCl 40 mg PO QDAY 02/24/18 06/25/18 05/09/18 History Spironolactone [Aldactone] 25 mg PO QDAY 02/24/18 06/25/18 05/09/18 History buPROPion SR [Wellbutrin SR] 150 mg PO BID 02/24/18 06/25/18 05/09/18 History Albuterol Sulfate [Ventolin HFA] 1 puff IH Q6H PRN 30 Days 03/03/18 06/25/18 05/09/18 Rx [email or web address] Buspirone HCl [busPIRone] 15 mg PO BID 05/10/18 06/25/18 05/09/18 History Carvedilol 12.5 mg PO BID 05/10/18 06/25/18 05/09/18 History Cyclobenzaprine [Flexeril] 10 mg PO TID PRN 05/10/18 06/25/18 05/09/18 History Diphenhydramine HCl [Allergy 25 mg PO DAILY 05/10/18 06/25/18 05/09/18 History Relief] Furosemide [Lasix] 80 mg PO DAILY 05/10/18 06/25/18 05/09/18 History ISOSORBIDE MONOnitrate [Imdur ER] 60 mg PO QDAY 05/10/18 06/25/18 05/09/18 History LORazepam [Ativan] 0.5 mg PO Q6H PRN 05/10/18 06/25/18 05/09/18 History Sertraline HCl [Zoloft] 50 mg PO DAILY 05/10/18 06/25/18 05/09/18 History hydrALAZINE [Apresoline] 25 mg PO Q8HR 05/10/18 06/25/18 05/09/18 History Active Medications: Generic Name Dose Route Start Last Admin Trade Name Freq PRN Reason Stop Dose Admin Acetaminophen 650 mg 06/25/18 21:06 06/29/18 21:08 Tylenol PO 650 mg Q6H PRN Administration Pain, Mild (1-3) Al Hydrox/Mg Hydrox/Simethicone 30 ml 06/26/18 11:43 06/30/18 02:04 Alum-Mag Hydrox-Simeth 732-885-36me/5ml PO 30 ml Q4H PRN Administration Indigestion Apixaban 5 mg 06/27/18 22:00 06/30/18 09:19 Eliquis PO 5 mg Q12HR RADHA Administration Protocol Aspirin 81 mg 06/26/18 10:00 06/30/18 09:18 Halfprin Ec PO 81 mg DAILY RADHA Administration Bupropion HCl 150 mg 06/25/18 22:00 06/30/18 09:19 Wellbutrin Sr PO 150 mg BID RADHA Administration Buspirone HCl 15 mg 06/25/18 22:00 06/30/18 09:18 Buspar PO 15 mg BID RADHA Administration Carvedilol 12.5 mg 06/25/18 22:00 06/30/18 09:19 Coreg PO 12.5 mg BID [facility] Administration Cyclobenzaprine HCl 10 mg 06/25/18 10:34 06/25/18 22:22 Flexeril PO 10 mg TID PRN Administration Muscle Spasm Diphenhydramine HCl 25 mg 06/26/18 10:00 06/30/18 09:19 Benadryl PO 25 mg DAILY RADHA Administration Docusate Sodium 100 mg 06/29/18 22:00 06/30/18 09:19 Colace PO 100 mg BID RADHA Administration Duloxetine HCl 30 mg 06/27/18 12:00 06/30/18 09:19 Cymbalta PO 30 mg QDAY [facility] Administration Furosemide 60 mg 06/30/18 18:00 Lasix IV 0600,1800 [facility] Hydralazine HCl 25 mg 06/25/18 14:00 06/30/18 05:19 Apresoline PO 25 mg Q8HR [facility] Administration Isosorbide Mononitrate 60 mg 06/26/18 10:00 06/30/18 09:19 Imdur PO 60 mg QDAY [facility] Administration Metolazone 5 mg 06/30/18 13:00 Zaroxolyn PO QDAY [facility] Ondansetron HCl 4 mg 06/25/18 21:06 06/30/18 02:04 Zofran IV 4 mg Q4H PRN Administration Nausea And Vomiting Pantoprazole Sodium 40 mg 06/26/18 12:00 06/30/18 09:18 Protonix PO 40 mg QDAY [facility] Administration Sertraline HCl 50 mg 06/26/18 10:00 06/30/18 09:19 Zoloft PO 50 mg DAILY [facility] Administration Sorbitol 30 ml 06/29/18 15:15 Sorbitol 70% PO PRN PRN Constipation Spironolactone 25 mg 06/30/18 13:00 Aldactone PO QDAY [facility]
[2018-06-30] MEDS: ZAROXOLYN PO SCH (16:14)
[2018-06-30] MEDS: ALDACTONE PO SCH (16:14)
--- NOTE | 2018-06-30 16:26 | Vascular Lab Report ---
PROCEDURE: Left upper extremity and limited right upper extremity duplex venous ultrasound. TECHNIQUE: Routine imaging of the venous system of the left side of the neck and the left arm was pe rformed. This included Doppler spectral analysis and color flow imaging. In addition imaging of the r ight internal jugular vein and right subclavian vein was performed. HISTORY: Left upper extremity edema. COMPARISONS: None. FINDINGS: Left side: There is echogenic material within the internal jugular vein which is noncompressible. Thi s is consistent with thrombosis. There is also echogenic material present within the left cephalic ve in near the antecubital fossa. The left subclavian, axillary, brachial, basilic, radial and ulnar vei ns are patent. Right side: The right internal jugular vein and right subclavian vein are patent. Flow is confirmed b y Doppler spectral analysis and color flow imaging. IMPRESSION: Thrombosis of the left internal jugular vein and the left cephalic vein at the antecubital fossa. Nor mal limited study of the right side. This document is electronically signed by Sanjay Trammell MD., June 30 2018 04:24:23 PM ET
[2018-06-30] MEDS ORDERED: MIRALAX 3350 PO PRN (18:08)
[2018-06-30] MEDS ORDERED: SENOKOT S PO PRN (18:08)
[2018-07-01] MEDS: APRESOLINE PO SCH ×3 (06:26→21:49)
[2018-07-01] MEDS: LASIX IV SCH ×2 (06:26→17:24)
--- NOTE | 2018-07-01 09:16 | Progress Note ---
Assessment and Plan - Patient Problems (1) Proteinuria Current Visit: Yes Status: Acute Plan to address problem: 24-hour urine study indicated only 90 mg of protein spillage. Urine creatinine noted as well as total urine volume of 1 L. Serologies are also pending. Hep C studies have been negative. I do not think that she has lower extremity swell ing secondary to significant proteinuria of renal etiology. I do think that her lower extremity edema and swelling is likely cardiac in etiology. (2) Acute on chronic systolic heart failure Current Visit: Yes Status: Acute Plan to address problem: Agree with current management per cardiology recommendations. Agree with current diuretic regimen. Urine studies indicated minimal proteinuria overall. I do think that a lot of her edema that we see is primarily cardiac in etiology. I reiterated to the nursing staff the importance of daily standing weights as well as documenting her urine output. (3) Chest pain Current Visit: Yes Status: Acute Plan to address problem: Currently no chest pain this morning. Management per cardiology and primary attending. (4) Hypertension Current Visit: No Status: Chronic Qualifiers: Hypertension type: essential hypertension Qualified Code(s): I10 - Essential (primary) hypertension Plan to address problem: We'll monitor patient on current regimen. (5) Constipation Current Visit: Yes Status: Acute Plan to address problem: Management per primary team (6) Hyperlipidemia Current Visit: No Status: Chronic Qualifiers: Hyperlipidemia type: mixed hyperlipidemia Qualified Code(s): E78.2 - Mixed hyperlipidemia Plan to address problem: Therapeutic continue patient on current statin therapy. Subjective Date of service: 07/01/18 Principal diagnosis: Proteinuria Interval history: No acute issues overnight. She has been diuresing with Lasix 60 twice a day. I have discussed with the nursing staff that we need to be documenting her urine output so last to assure adequate response to the aforementioned Lasix. She also needs to be weighed daily. Renal function overall is stable. Objective - Vital Signs Vital signs: Vital Signs - 12hr 06/30/18 06/30/18 07/01/18 22:50 23:06 04:21 Temperature 98.4 F 97.8 F Pulse Rate 63 59 L 64 Respiratory 18 19 Rate Blood Pressure 99/41 118/60 O2 Sat by Pulse 97 98 Oximetry 07/01/18 09:06 Temperature 97.7 F Pulse Rate 62 Respiratory 18 Rate Blood Pressure 113/94 O2 Sat by Pulse 86 Oximetry - General Appearance General appearance: well-developed, well-nourished, appears stated age EENT: ATNC, PERRL Neck: no JVD, no thyromegaly Respiratory: Present: Clear to Ascultation, Normal Exam Cardiology: regular, S1S2 Gastrointestinal: normal, normoactive bowel sounds Integumentary: no rash, warm and dry Neurologic: no focal deficit, alert and oriented x3 Musculoskeletal: other (2+ edema) Psychiatric: mood/affect appropriate, cooperative - Lab 06/25/18 06:10 06/30/18 07:23 Most recent lab results Calcium 8.0 mg/dL (8.4-10.2) L 06/30/18 07:23 Magnesium 1.80 mg/dL (1.7-2.3) 06/30/18 07:23 Urine Creatinine 49.0 mg/dL (0.1-20.0) H 06/29/18 22:50 Ur Total Protein 24 Hr 90.00 mg/dL (2-200) 06/29/18 22:50 Urine Total Protein 9 mg/dL (5-11.8) 06/29/18 22:50 - Allied health notes Allied health notes reviewed: nursing Medications & Allergies - Medications Allergies/Adverse Reactions: Allergies lisinopril Allergy (Verified 02/24/18 09:15) Anaphylaxis Penicillins Allergy (Verified 02/24/18 09:15) Seizure Sulfa (Sulfonamide Antibiotics) Adverse Reaction (Verified 02/24/18 09:15) Hives Home Medications: Home Medications Medication Instructions Recorded Confirmed Last Taken Type Aspirin [Adult Aspirin] 81 mg PO DAILY 02/24/18 06/25/18 05/09/18 History Clopidogrel Bisulfate [Plavix] 75 mg PO QDAY 02/24/18 06/25/18 05/09/18 History Duloxetine HCl 40 mg PO QDAY 02/24/18 06/25/18 05/09/18 History Spironolactone [Aldactone] 25 mg PO QDAY 02/24/18 06/25/18 05/09/18 History buPROPion SR [Wellbutrin SR] 150 mg PO BID 02/24/18 06/25/18 05/09/18 History Albuterol Sulfate [Ventolin HFA] 1 puff IH Q6H PRN 30 Days 03/03/18 06/25/1805/09/19 Rx [email or web address] Buspirone HCl [busPIRone] 15 mg PO BID 05/10/18 06/25/18 05/09/18 History Carvedilol 12.5 mg PO BID 05/10/18 06/25/18 05/09/18 History Cyclobenzaprine [Flexeril] 10 mg PO TID PRN 05/10/18 06/25/18 05/09/18 History Diphenhydramine HCl [Allergy 25 mg PO DAILY 05/10/18 06/25/18 05/09/18 History Relief] Furosemide [Lasix] 80 mg PO DAILY 05/10/18 06/25/18 05/09/18 History ISOSORBIDE MONOnitrate [Imdur ER] 60 mg PO QDAY 05/10/18 06/25/18 05/09/18 History LORazepam [Ativan] 0.5 mg PO Q6H PRN 05/10/18 06/25/18 05/09/18 History Sertraline HCl [Zoloft] 50 mg PO DAILY 05/10/18 06/25/18 05/09/18 History hydrALAZINE [Apresoline] 25 mg PO Q8HR 05/10/18 06/25/18 05/09/18 History Active Medications: Generic Name Dose Route Start Last Admin Trade Name Freq PRN Reason Stop Dose Admin Acetaminophen 650 mg 06/25/18 21:06 06/29/18 21:08 Tylenol PO 650 mg Q6H PRN Administration Pain, Mild (1-3) Al Hydrox/Mg Hydrox/Simethicone 30 ml 06/26/18 11:43 06/30/18 02:04 Alum-Mag Hydrox-Simeth 090-428-85ec/5ml PO 30 ml Q4H PRN Administration Indigestion Apixaban 5 mg 06/27/18 22:00 06/30/18 21:09 Eliquis PO 5 mg Q12HR RADHA Administration Protocol Aspirin 81 mg 06/26/18 10:00 06/30/18 09:18 Halfprin Ec PO 81 mg DAILY RADHA Administration Bupropion HCl 150 mg 06/25/18 22:00 06/30/18 21:12 Wellbutrin Sr PO Not Given BID RADHA Buspirone HCl 15 mg 06/25/18 22:00 06/30/18 21:09 Buspar PO 15 mg BID RADHA Administration Carvedilol 12.5 mg 06/25/18 22:00 06/30/18 21:09 Coreg PO 12.5 mg BID RADHA Administration Cyclobenzaprine HCl 10 mg 06/25/18 10:34 06/25/18 22:22 Flexeril PO 10 mg TID PRN Administration Muscle Spasm Diphenhydramine HCl 25 mg 06/26/18 10:00 06/30/18 09:19 Benadryl PO 25 mg DAILY [facility] Administration Docusate Sodium 100 mg 06/29/18 22:00 06/30/18 21:12 Colace PO Not Given BID RADHA Duloxetine HCl 30 mg 06/27/18 12:00 06/30/18 09:19 Cymbalta PO 30 mg QDAY [facility] Administration Furosemide 60 mg 06/30/18 18:00 07/01/18 06:26 Lasix IV 60 mg 0600,1800 [facility] Administration Hydralazine HCl 25 mg 06/25/18 14:00 07/01/18 06:26 Apresoline PO 25 mg Q8HR RADHA Administration Isosorbide Mononitrate 60 mg 06/26/18 10:00 06/30/18 09:19 Imdur PO 60 mg QDAY [facility] Administration Metolazone 5 mg 06/30/18 13:00 06/30/18 16:14 Zaroxolyn PO 5 mg QDAY [facility] Administration Ondansetron HCl 4 mg 06/25/18 21:06 06/30/18 02:04 Zofran IV 4 mg Q4H PRN Administration Nausea And Vomiting Pantoprazole Sodium 40 mg 06/26/18 12:00 06/30/18 09:18 Protonix PO 40 mg QDAY [facility] Administration Polyethylene Glycol 17 gm 06/30/18 18:08 Miralax 3350 PO BID PRN Constipation Senna/Docusate Sodium 2 tab 06/30/18 18:08 06/30/18 21:09 Senokot S PO 2 tab Q12H PRN Administration Laxative Effect Sertraline HCl 50 mg 06/26/18 10:00 06/30/18 09:19 Zoloft PO 50 mg DAILY [facility] Administration Sorbitol 30 ml 06/29/18 15:15 Sorbitol 70% PO PRN PRN Constipation Spironolactone 25 mg 06/30/18 13:00 06/30/18 16:14 Aldactone PO 25 mg QDAY [facility] Administration
[2018-07-01] MEDS: ELIQUIS PO SCH ×2 (09:21→21:50)
[2018-07-01] MEDS: COREG PO SCH ×2 (09:22→21:50)
[2018-07-01] MEDS: BUSPAR PO SCH ×2 (09:24→21:49)
[2018-07-01] MEDS: ZOLOFT PO SCH (09:26)
[2018-07-01] MEDS: CYMBALTA PO SCH (09:26)
[2018-07-01] MEDS: HALFPRIN EC PO SCH (09:26)
[2018-07-01] MEDS: ZAROXOLYN PO SCH (09:26)
[2018-07-01] MEDS: ALDACTONE PO SCH (09:26)
[2018-07-01] MEDS: PROTONIX PO SCH (09:26)
[2018-07-01] MEDS: BENADRYL PO SCH (09:27)
[2018-07-01] MEDS: IMDUR PO SCH (09:27)
[2018-07-01] MEDS: WELLBUTRIN SR PO SCH ×2 (09:27→21:50)
[2018-07-01] MEDS: COLACE PO SCH ×2 (09:33→21:58)
--- NOTE | 2018-07-01 10:41 | Progress Note ---
Assessment and Plan Acute on chronic systolic heart failure LUE DVT Hx of coronary artery disease cardiac cath 03/2018 revealed patent SVG to LAD, SVG to OM and SVG to PDA, Patent diagonal stent, LVEF 10-15%. Hx of Ischemic cardiomyopathy, ejection fraction 10-15%. Presence of single chamber cardiac defibrillator underlying paroxysmal atrial fibrillation previously treated with eliquis for oral anticoagulation therapy. Tobacco abuse Recommend: Continue medical therapy for chronic systolic heart failure, coronary artery disease and paroxysmal Afib. Subjective Date of service: 07/01/18 Principal diagnosis: Proteinuria Interval history: LUE doppler reports thrombosis of the left internal jugular vein and the left cephalic vein at the antecubital fossa. Patient is currently on eliquis therapy for paroxysmal afib. Objective Vital Signs Temp Pulse Resp BP Pulse Ox 07/01/18 09:27 60 113/94 07/01/18 09:26 60 113/94 07/01/18 09:22 60 113/94 07/01/18 09:06 97.7 F 62 18 113/94 86 07/01/18 04:21 97.8 F 64 19 118/60 98 06/30/18 23:06 98.4 F 59 L 18 99/41 97 06/30/18 22:50 63 06/30/18 20:35 97.8 F 64 16 131/70 98 06/30/18 19:00 82 93 06/30/18 12:23 98.1 F 18 112/64 - Physical Examination General: No Apparent Distress HEENT: Positive: PERRL Neck: Positive: trachea midline Lungs: Positive: Decreased Breath Sounds Neuro: Positive: Grossly Intact Extremities: Absent: edema - Allied health notes Allied health notes reviewed: nursing
--- NOTE | 2018-07-01 18:29 | Progress Note ---
Assessment and Plan Assessment and plan: 67F who is admitted for sob, pedal edema, orthopnea Doppler show Left IJ and cephalic DVT Diagnosis Acute on chronic systolic CHF, EF 10, sp AICD Acute on chronic hypoxic respiratory failure (uses 3 L at home) pulmonary edema CP likely due to CHF Peptic ulcer disease with abdominal pain due to noncompliance with PPI proteinuria LUE DVT Plan -IV diuretics, optimize cardiac meds, oxygen prn cardiology consult appreciated, cont milrinone drip, add now on eliquis -oxygen and pain meds as needed -Reviewed GI notes, she has had recent EGD which confirmed peptic ulcers, patient was put on PPI, but she has not been taking it, PPI was restarted -Renal consult to eval for proteinuria in progress -continue eliquis, hematology consult DVT ppx chemical History Interval history: Review of systems Constitutional: No fevers, no malaise, no joint pains CVS: Chest pain has now resolved, still complaining of shortness of breath and bipedal edema, and orthopnea GI: no abdo pain today Respiratory: no wheezing, no coughing Hospitalist Physical - Physical exam Narrative exam: General.: Appears well, no distress, nontoxic HEENT: Moist mucous membranes, extraocular muscles intact, no lymphadenopathy Neck: supple Cardiac: S1-S2 heard Lungs: Bibasilar crackles Abdomen: soft , nontender, nondistended, bowel sounds positive Extremities: Bipedal edema, LUE edema Skin: no rash or lesions Neurologic: no gross focal deficits Psych: calm, and cooperative - Constitutional Vitals: Temp Pulse Resp BP Pulse Ox 97.2 F L 60 18 115/58 86 07/01/18 14:04 07/01/18 09:27 07/01/18 14:04 07/01/18 15:32 07/01/18 09:06 General appearance: Present: no acute distress, well-nourished Results - Labs CBC & Chem 7: 06/25/18 06:10 06/30/18 07:23 Labs: Laboratory Last Values WBC 4.1 K/mm3 (4.5-11.0) L 06/25/18 06:10 RBC 3.21 M/mm3 (3.65-5.03) L 06/25/18 06:10 Hgb 11.1 gm/dl (10.1-14.3) 06/25/18 06:10 Hct 34.2 % (30.3-42.9) 06/25/18 06:10 MCV 107 fl (79-97) H 06/25/18 06:10 MCH 35 pg (28-32) H 06/25/18 06:10 MCHC 33 % (30-34) 06/25/18 06:10 RDW 15.5 % (13.2-15.2) H 06/25/18 06:10 Plt Count 187 K/mm3 (140-440) 06/25/18 06:10 Lymph % (Auto) 4.9 % (13.4-35.0) L 06/25/18 06:10 [place] % (Auto) 10.3 % (0.0-7.3) H 06/25/18 06:10 Eos % (Auto) 0.9 % (0.0-4.3) 06/25/18 06:10 Baso % (Auto) 0.3 % (0.0-1.8) 06/25/18 06:10 Lymph # 0.2 K/mm3 (1.2-5.4) L 06/25/18 06:10 [place] # 0.4 K/mm3 (0.0-0.8) 06/25/18 06:10 Eos # 0.0 K/mm3 (0.0-0.4) 06/25/18 06:10 Baso # 0.0 K/mm3 (0.0-0.1) 06/25/18 06:10 Seg Neutrophils % 83.6 % (40.0-70.0) H 06/25/18 06:10 Seg Neutrophils # 3.4 K/mm3 (1.8-7.7) 06/25/18 06:10 Sodium 139 mmol/L (137-145) 06/30/18 07:23 Potassium 4.6 mmol/L (3.6-5.0) 06/30/18 07:23 Chloride 100.2 mmol/L (98-107) 06/30/18 07:23 Carbon Dioxide 33 mmol/L (22-30) H 06/30/18 07:23 Anion Gap 10 mmol/L 06/30/18 07:23 BUN 20 mg/dL (7-17) H 06/30/18 07:23 Creatinine 0.9 mg/dL (0.7-1.2) 06/30/18 07:23 Estimated GFR > 60 ml/min 06/30/18 07:23 BUN/Creatinine Ratio 22 % 06/30/18 07:23 Glucose 102 mg/dL (65-100) H 06/30/18 07:23 Calcium 8.0 mg/dL (8.4-10.2) L 06/30/18 07:23 Magnesium 1.80 mg/dL (1.7-2.3) 06/30/18 07:23 Total Creatine Kinase 192 units/L (30-135) H 06/25/18 06:10 CK-MB (CK-2) 3.1 ng/mL (0.0-4.0) 06/25/18 06:10 CK-MB (CK-2) Rel Index 1.6 (0-4) 06/25/18 06:10 Troponin T < 0.010 ng/mL (0.00-0.029) 06/25/18 06:10 NT-Pro-B Natriuret Pep 7516 pg/mL (0-900) H 06/25/18 06:10 Urine Color Shonda (Yellow) 06/25/18 08:08 Urine Turbidity Clear (Clear) 06/25/18 08:08 Urine pH 6.0 (5.0-7.0) 06/25/18 08:08 Ur Specific [place] 1.025 (1.003-1.030) 06/25/18 08:08 Urine Protein >2000 mg dl mg/dL (Negative) 06/25/18 08:08 Urine Glucose (UA) Neg mg/dL (Negative) 06/25/18 08:08 Urine Ketones Neg mg/dL (Negative) 06/25/18 08:08 Urine Blood Neg (Negative) 06/25/18 08:08 Urine Nitrite Neg (Negative) 06/25/18 08:08 Urine Bilirubin Neg (Negative) 06/25/18 08:08 Urine Urobilinogen 2.0 mg/dL (<2.0) 06/25/18 08:08 Ur Leukocyte Esterase Neg (Negative) 06/25/18 08:08 Urine WBC (Auto) < 1.0 /HPF (0.0-6.0) 06/25/18 08:08 Urine RBC (Auto) 2.0 /HPF (0.0-6.0) 06/25/18 08:08 U Epithel Cells (Auto) 1.0 /HPF (0-13.0) 06/25/18 08:08 Urine Mucus Few /HPF 06/25/18 08:08 Urine Total Volume 1000 ml 06/29/18 22:50 Urine Creatinine 49.0 mg/dL (0.1-20.0) H 06/29/18 22:50 Ur Creatinine 24 Hour 0.5 (0.8-2.8) L 06/29/18 22:50 Ur Total Protein 24 Hr 90.00 mg/dL (2-200) 06/29/18 22:50 Urine Total Protein 9 mg/dL (5-11.8) 06/29/18 22:50 Hepatitis C Antibody Non-reactive (NonReactive) 06/29/18 07:47 Active Medications - Current Medications Current Medications: Generic Name Dose Route Start Last Admin Trade Name Freq PRN Reason Stop Dose Admin Acetaminophen 650 mg 06/25/18 21:06 06/29/18 21:08 Tylenol PO 650 mg Q6H PRN Administration Pain, Mild (1-3) Al Hydrox/Mg Hydrox/Simethicone 30 ml 06/26/18 11:43 06/30/18 02:04 Alum-Mag Hydrox-Simeth 806-402-70ob/5ml PO 30 ml Q4H PRN Administration Indigestion Apixaban 5 mg 06/27/18 22:00 07/01/18 09:21 Eliquis PO 5 mg Q12HR RADHA Administration Protocol Aspirin 81 mg 06/26/18 10:00 07/01/18 09:26 Halfprin Ec PO 81 mg DAILY [facility] Administration Bupropion HCl 150 mg 06/25/18 22:00 07/01/18 09:27 Wellbutrin Sr PO 150 mg BID [facility] Administration Buspirone HCl 15 mg 06/25/18 22:00 07/01/18 09:24 Buspar PO 15 mg BID [facility] Administration Carvedilol 12.5 mg 06/25/18 22:00 07/01/18 09:22 Coreg PO 12.5 mg BID [facility] Administration Cyclobenzaprine HCl 10 mg 06/25/18 10:34 06/25/18 22:22 Flexeril PO 10 mg TID PRN Administration Muscle Spasm Diphenhydramine HCl 25 mg 06/26/18 10:00 07/01/18 09:27 Benadryl PO 25 mg DAILY [facility] Administration Docusate Sodium 100 mg 06/29/18 22:00 07/01/18 09:33 Colace PO 100 mg BID [facility] Administration Duloxetine HCl 30 mg 06/27/18 12:00 07/01/18 09:26 Cymbalta PO 30 mg QDAY [facility] Administration Furosemide 60 mg 06/30/18 18:00 07/01/18 17:24 Lasix IV 60 mg 0600,1800 [facility] Administration Hydralazine HCl 25 mg 06/25/18 14:00 07/01/18 15:32 Apresoline PO 25 mg Q8HR [facility] Administration Isosorbide Mononitrate 60 mg 06/26/18 10:00 07/01/18 09:27 Imdur PO 60 mg QDAY [facility] Administration Metolazone 5 mg 06/30/18 13:00 07/01/18 09:26 Zaroxolyn PO 5 mg QDAY [facility] Administration Ondansetron HCl 4 mg 06/25/18 21:06 06/30/18 02:04 Zofran IV 4 mg Q4H PRN Administration Nausea And Vomiting Pantoprazole Sodium 40 mg 06/26/18 12:00 07/01/18 09:26 Protonix PO 40 mg QDAY [facility] Administration Polyethylene Glycol 17 gm 06/30/18 18:08 Miralax 3350 PO BID PRN Constipation Senna/Docusate Sodium 2 tab 06/30/18 18:08 06/30/18 21:09 Senokot S PO 2 tab Q12H PRN Administration Laxative Effect Sertraline HCl 50 mg 06/26/18 10:00 07/01/18 09:26 Zoloft PO 50 mg DAILY [facility] Administration Sorbitol 30 ml 06/29/18 15:15 Sorbitol 70% PO PRN PRN Constipation Spironolactone 25 mg 06/30/18 13:00 07/01/18 09:26 Aldactone PO 25 mg QDAY [facility] Administration
[2018-07-02] MEDS: LASIX IV SCH ×2 (06:17→17:21)
[2018-07-02] MEDS: APRESOLINE PO SCH ×2 (06:17→17:21)
--- NOTE | 2018-07-02 10:14 | Progress Note ---
Assessment and Plan - Patient Problems (1) Proteinuria Current Visit: Yes Status: Acute Plan to address problem: 24-hour urine study indicated only 90 mg of protein spillage. Urine creatinine noted as well as total urine volume of 1 L. Serologies are also pending. Hep C studies have been negative. I do not think that she has lower extremity swell ing secondary to significant proteinuria of renal etiology. I do think that her lower extremity edema and swelling is likely cardiac in etiology. (2) Acute on chronic systolic heart failure Current Visit: Yes Status: Acute Plan to address problem: Agree with current management per cardiology recommendations. Agree with current diuretic regimen. Urine studies indicated minimal proteinuria overall. I do think that a lot of her edema that we see is primarily cardiac in etiology. I reiterated to the nursing staff the importance of daily standing weights as well as documenting her urine output. She has put out ~3L UO over last 24 hours and standing weight has decreased by 0.5 kg. Will continue on current diuretic regimen. (3) Chest pain Current Visit: Yes Status: Acute Plan to address problem: Currently no chest pain this morning. Management per cardiology and primary attending. (4) Hypertension Current Visit: No Status: Chronic Qualifiers: Hypertension type: essential hypertension Qualified Code(s): I10 - Essential (primary) hypertension Plan to address problem: We'll monitor patient on current regimen. (5) Constipation Current Visit: Yes Status: Acute Plan to address problem: Management per primary team (6) Hyperlipidemia Current Visit: No Status: Chronic Qualifiers: Hyperlipidemia type: mixed hyperlipidemia Qualified Code(s): E78.2 - Mixed hyperlipidemia Plan to address problem: continue patient on current statin therapy. Subjective Date of service: 07/02/18 Principal diagnosis: Proteinuria Interval history: She seems to be responding to the current diuretic regimen. Currently on lasix 60 mg IV BID. Renal function remains stable. Objective - Vital Signs Vital signs: Vital Signs - 12hr 07/01/18 07/02/18 07/02/18 23:06 04:21 06:17 Temperature 98.0 F 98.4 F Pulse Rate 53 L 62 62 Respiratory 19 18 Rate Blood Pressure 109/55 130/65 130/65 O2 Sat by Pulse 98 98 Oximetry - General Appearance General appearance: well-developed, well-nourished, appears stated age EENT: ATNC, PERRL Neck: no thyromegaly Respiratory: Present: Clear to Ascultation Cardiology: regular, S1S2 Gastrointestinal: normal, normoactive bowel sounds Integumentary: warm and dry Neurologic: no focal deficit, alert and oriented x3 Musculoskeletal: other (+edema ) Psychiatric: mood/affect appropriate, cooperative - Lab 06/25/18 06:10 06/30/18 07:23 Most recent lab results Calcium 8.0 mg/dL (8.4-10.2) L 06/30/18 07:23 Magnesium 1.80 mg/dL (1.7-2.3) 06/30/18 07:23 Urine Creatinine 49.0 mg/dL (0.1-20.0) H 06/29/18 22:50 Ur Total Protein 24 Hr 90.00 mg/dL (2-200) 06/29/18 22:50 Urine Total Protein 9 mg/dL (5-11.8) 06/29/18 22:50 - Allied health notes Allied health notes reviewed: nursing Medications & Allergies - Medications Allergies/Adverse Reactions: Allergies lisinopril Allergy (Verified 02/24/18 09:15) Anaphylaxis Penicillins Allergy (Verified 02/24/18 09:15) Seizure Sulfa (Sulfonamide Antibiotics) Adverse Reaction (Verified 02/24/18 09:15) Hives Home Medications: Home Medications Medication Instructions Recorded Confirmed Last Taken Type Aspirin [Adult Aspirin] 81 mg PO DAILY 02/24/18 06/25/18 05/09/18 History Clopidogrel Bisulfate [Plavix] 75 mg PO QDAY 02/24/18 06/25/18 05/09/18 History Duloxetine HCl 40 mg PO QDAY 02/24/18 06/25/18 05/09/18 History Spironolactone [Aldactone] 25 mg PO QDAY 02/24/18 06/25/18 05/09/18 History buPROPion SR [Wellbutrin SR] 150 mg PO BID 02/24/18 06/25/18 05/09/18 History Albuterol Sulfate [Ventolin HFA] 1 puff IH Q6H PRN 30 Days 03/03/18 06/25/18 05/09/18 Rx [email or web address] Buspirone HCl [busPIRone] 15 mg PO BID 05/10/18 06/25/18 05/09/18 History Carvedilol 12.5 mg PO BID 05/10/18 06/25/18 05/09/18 History Cyclobenzaprine [Flexeril] 10 mg PO TID PRN 05/10/18 06/25/18 05/09/18 History Diphenhydramine HCl [Allergy 25 mg PO DAILY 05/10/18 06/25/18 05/09/18 History Relief] Furosemide [Lasix] 80 mg PO DAILY 05/10/18 06/25/18 05/09/18 History ISOSORBIDE MONOnitrate [Imdur ER] 60 mg PO QDAY 05/10/18 06/25/18 05/09/18 H istory LORazepam [Ativan] 0.5 mg PO Q6H PRN 05/10/18 06/25/18 05/09/18 History Sertraline HCl [Zoloft] 50 mg PO DAILY 05/10/18 06/25/18 05/09/18 History hydrALAZINE [Apresoline] 25 mg PO Q8HR 05/10/18 06/25/18 05/09/18 History Active Medications: Generic Name Dose Route Start Last Admin Trade Name Freq PRN Reason Stop Dose Admin Acetaminophen 650 mg 06/25/18 21:06 06/29/18 21:08 Tylenol PO 650 mg Q6H PRN Administration Pain, Mild (1-3) Al Hydrox/Mg Hydrox/Simethicone 30 ml 06/26/18 11:43 06/30/18 02:04 Alum-Mag Hydrox-Simeth [id number]/5ml PO 30 ml Q4H PRN Administration Indigestion Apixaban 5 mg 06/27/18 22:00 07/01/18 21:50 Eliquis PO 5 mg Q12HR [facility] Administration Protocol Aspirin 81 mg 06/26/18 10:00 07/01/18 09:26 Halfprin Ec PO 81 mg DAILY [facility] Administration Bupropion HCl 150 mg 06/25/18 22:00 07/01/18 21:50 Wellbutrin Sr PO 150 mg BID [facility] Administration Buspirone HCl 15 mg 06/25/18 22:00 07/01/18 21:49 Buspar PO 15 mg BID [facility] Administration Carvedilol 12.5 mg 06/25/18 22:00 07/01/18 21:50 Coreg PO 12.5 mg BID [facility] Administration Cyclobenzaprine HCl 10 mg 06/25/18 10:34 06/25/18 22:22 Flexeril PO 10 mg TID PRN Administration Muscle Spasm Diphenhydramine HCl 25 mg 06/26/18 10:00 07/01/18 09:27 Benadryl PO 25 mg DAILY [facility] Administration Docusate Sodium 100 mg 06/29/18 22:00 07/01/18 21:58 Colace PO Not Given BID [facility] Duloxetine HCl 30 mg 06/27/18 12:00 07/01/18 09:26 Cymbalta PO 30 mg QDAY [facility] Administration Furosemide 60 mg 06/30/18 18:00 07/02/18 06:17 Lasix IV 60 mg 0600,1800 [facility] Administration Hydralazine HCl 25 mg 06/25/18 14:00 07/02/18 06:17 Apresoline PO 25 mg Q8HR [facility] Administration Isosorbide Mononitrate 60 mg 06/26/18 10:00 07/01/18 09:27 Imdur PO 60 mg QDAY [facility] Administration Metolazone 5 mg 06/30/18 13:00 07/01/18 09:26 Zaroxolyn PO 5 mg QDAY [facility] Administration Ondansetron HCl 4 mg 06/25/18 21:06 06/30/18 02:04 Zofran IV 4 mg Q4H PRN Administration Nausea And Vomiting Pantoprazole Sodium 40 mg 06/26/18 12:00 07/01/18 09:26 Protonix PO 40 mg QDAY [facility] Administration Polyethylene Glycol 17 gm 06/30/18 18:08 Miralax 3350 PO BID PRN Constipation Senna/Docusate Sodium 2 tab 06/30/18 18:08 06/30/18 21:09 Senokot S PO 2 tab Q12H PRN Administration Laxative Effect Sertraline HCl 50 mg 06/26/18 10:00 07/01/18 09:26 Zoloft PO 50 mg DAILY [facility] Administration Spironolactone 25 mg 06/30/18 13:00 07/01/18 09:26 Aldactone PO 25 mg QDAY [facility] Administration
[2018-07-02] MEDS: HALFPRIN EC PO SCH (10:32)
[2018-07-02] MEDS: ELIQUIS PO SCH (10:32)
[2018-07-02] MEDS: CYMBALTA PO SCH (10:32)
[2018-07-02] MEDS: BENADRYL PO SCH (10:32)
[2018-07-02] MEDS: ALDACTONE PO SCH (10:33)
[2018-07-02] MEDS: ZAROXOLYN PO SCH (10:33)
[2018-07-02] MEDS: ZOLOFT PO SCH (10:33)
[2018-07-02] MEDS: WELLBUTRIN SR PO SCH (10:33)
[2018-07-02] MEDS: COLACE PO SCH (10:33)
[2018-07-02] MEDS: BUSPAR PO SCH (10:33)
[2018-07-02] MEDS: IMDUR PO SCH (10:34)
[2018-07-02] MEDS: PROTONIX PO SCH (10:34)
[2018-07-02] MEDS: COREG PO SCH (10:34)
--- NOTE | 2018-07-02 11:27 | Progress Note ---
Assessment and Plan Acute on chronic systolic heart failure LUE DVT Hx of coronary artery disease cardiac cath 03/2018 revealed patent SVG to LAD, SVG to OM and SVG to PDA, Patent diagonal stent, LVEF 10-15%. Hx of Ischemic cardiomyopathy, ejection fraction 10-15%. Presence of single chamber cardiac defibrillator underlying paroxysmal atrial fibrillation previously treated with eliquis for oral anticoagulation therapy. Tobacco abuse Recommend: Continue medical therapy for chronic systolic heart failure, coronary artery disease and paroxysmal Afib. Subjective Date of service: 07/02/18 Principal diagnosis: Proteinuria Interval history: Patient has no cardiac complaints. She reports her breathing is better. Objective Vital Signs Temp Pulse Pulse Resp BP Pulse Ox 07/02/18 10:34 64 121/52 07/02/18 10:33 64 121/52 07/02/18 10:28 63 07/02/18 08:39 98.3 F 47 L 18 121/52 98 07/02/18 06:17 62 130/65 07/02/18 04:21 98.4 F 62 18 130/65 98 07/01/18 23:06 98.0 F 53 L 19 109/55 98 07/01/18 21:50 62 122/63 07/01/18 21:49 62 122/63 07/01/18 20:50 58 L 16 98 07/01/18 19:55 98.7 F 58 L 12 122/63 98 07/01/18 19:31 63 07/01/18 17:33 119/79 07/01/18 15:32 115/58 07/01/18 14:04 97.2 F L 18 115/58 - Physical Examination General: No Apparent Distress HEENT: Positive: PERRL Neck: Positive: trachea midline Cardiac: Positive: Other (paced) Lungs: Positive: Decreased Breath Sounds Neuro: Positive: Grossly Intact Extremities: Absent: edema - Allied health notes Allied health notes reviewed: nursing
--- NOTE | 2018-07-02 15:27 | Discharge Summary ---
Providers - Providers Date of Admission: 06/25/18 08:56 Attending physician: EDOUARD GUERRA MD 06/25/18 10:39 Consult to Physician [CONS] Routine Comment: Consulting Provider: HARESH LING Physician Instructions: Reason For Exam: chf 06/27/18 12:43 Consult to Physician [CONS] Routine Comment: Consulting Provider: SERGE LI Physician Instructions: Reason For Exam: proteinuria 07/01/18 18:29 Consult to Physician [CONS] Routine Comment: Consulting Provider: NOLVIA TIRADO Physician Instructions: Reason For Exam: LUE DVT Hospitalization Condition: Critical Hospital course: 67F who is admitted for sob, pedal edema, orthopnea Doppler show Left IJ and cephalic DVT Diagnosis Acute on chronic systolic CHF, EF 10, sp AICD Acute on chronic hypoxic respiratory failure (uses 3 L at home) pulmonary edema CP likely due to CHF Peptic ulcer disease with abdominal pain due to noncompliance with PPI proteinuria LUE DVT Hypercoagulable states Hospital course She received IV diuretics, medications and optimize. She was treated with milrinone drip, She was put on blood thinners for left upper extremity DVT, she needs to be maintained on the blood thinner as she has a high risk of stroke with advanced, end-stage heart failure She was treated with oxygen [facility] on home oxygen was provided for her prior to discharge -The patient had not been compliant to her PPI and she has a confirmed history of peptic ulcer disease, she was restarted on her PPI after which abdominal pain resolved She was seen by nephrology with question of possible proteinuria, urine analysis was not consistent with significant proteinuria. - Disposition: [id number] HOME [facility] Time spent for discharge: 33 mins Core Measure Documentation - Palliative Care Palliative Care/ Comfort Measures: Not Applicable - Core Measures Any of the following diagnoses?: heart failure - Heart Failure Discharge Requirements VERÓNICA/ARB for LVSD if EF <40%: Yes Beta kendall at discharge: Yes Exam - Physical Exam Narrative exam: General.: Appears well, no distress, nontoxic HEENT: Moist mucous membranes, extraocular muscles intact, no lymphadenopathy Neck: supple Cardiac: S1-S2 heard Lungs: CTA Abdomen: soft , nontender, nondistended, bowel sounds positive Extremities: LUE edema Skin: no rash or lesions Neurologic: no gross focal deficits Psych: calm, and cooperative - Constitutional Vitals: Temp Pulse Resp BP Pulse Ox 97.5 F L 56 L 18 101/55 97 07/02/18 12:51 07/02/18 12:51 07/02/18 12:51 07/02/18 12:51 07/02/18 12:51 Plan Follow up with: [facility] [Other] - 7 Days Prescriptions: Apixaban [Eliquis] 5 mg PO Q12HR #60 tablet Furosemide [Lasix] 80 mg PO DAILY #30 tablet Polyethylene Glycol 3350 [Miralax 3350] 17 gm PO BID PRN #30 powd.pack PRN Reason: Constipation Pantoprazole [Protonix TAB] 40 mg PO QDAY #30 tablet Sennosides/Docusate [Senokot S] 2 tab PO Q12H PRN #120 tablet PRN Reason: Laxative Effect metOLazone [Zaroxolyn] 5 mg PO QDAY #30 tablet
[2018-07-02 17:23] VITALS: BP 101/55
--- NOTE | 2018-07-03 07:04 | Event Note ---
Date: 07/02/18 [id number]
--- NOTE | 2018-07-03 07:30 | Consultation ---
REFERRING PHYSICIAN: Dr. Simpson. REASON FOR CONSULTATION: Upper extremity DVT. HISTORY OF PRESENT ILLNESS: I saw the patient, a 67-year-old female, in the medical floor. The patient was admitted on 06/25/2018 with shortness of breath, orthopnea, and extremity swelling, which was happening for a few days. The patient has a history of CHF with low ejection fraction, AICD, coronary artery disease, depression, COPD. During this admission, the patient was found to have left internal jugular and left cephalic vein DVT. The patient has been placed on Eliquis. I have been asked to evaluate the patient. At this time, breathing has improved. No chest pain, no vomiting, no diarrhea, no dysuria, no hematemesis, no hematochezia. PAST MEDICAL HISTORY: As above. PAST SURGICAL HISTORY: AICD. FAMILY HISTORY: Heart disease. SOCIAL HISTORY: Ex-smoker. ALLERGIES: Includes LISINOPRIL, PENICILLIN, SULFA. PHYSICAL EXAMINATION: GENERAL: Elderly female. VITAL SIGNS: Temperature 98, pulse 63, respirations 18, BP 118/67. HEENT: No pallor, no icterus. NECK: No neck lymph nodes. HEART: S1, S2. LUNGS: Decreased air entry in the bases. ABDOMEN: Soft. EXTREMITIES: Left upper extremity swelling present. AICD present in the chest. NEUROLOGIC: Alert, awake, follows simple commands. LABORATORY DATA: White cell 4, hemoglobin 11, MCV 107, platelet 187. Potassium 4.6, creatinine 0.9, calcium 8. RADIOLOGY: Upper extremity DVT, left internal jugular and cephalic vein thrombosis. ASSESSMENT AND PLAN: 1. Left internal jugular thrombosis. 2. History of paroxysmal atrial fibrillation. The patient was on Eliquis before. The patient has been started on Eliquis. Outpatient followup was seen. The patient has low ejection fraction. The patient has AICD. This may have a role in the thrombosis. The patient may need a longer term anticoagulation. If MCV is elevated, we will follow the patient. 3. History of congestive heart failure. 4. History of chronic obstructive pulmonary disease. 5. History of proteinuria. 6. History of hypertension. 7. History of hyperlipidemia. 8. I will follow the patient during inpatient and then in the clinic setting. JOB# [id number] NM/NTS
== END 2018-07-02 18:00 | disposition home health service (06) | DRG 291 ==
LOC: ED 05:28 → 4A 08:56
PROVIDERS: ADMIT Internal Medicine; ATTEND Internal Medicine
DX: I11.0 Hypertensive heart disease with heart failure (principal); J96.21 Acute and chronic respiratory failure with hypoxia; I82.622 Acute embolism and thrombosis of deep veins of left upper extremity; I50.23 Acute on chronic systolic (congestive) heart failure; R80.9 Proteinuria, unspecified; I25.2 Old myocardial infarction; I25.10 Atherosclerotic heart disease of native coronary artery without angina pectoris; I48.0 Paroxysmal atrial fibrillation; F32.9 Major depressive disorder, single episode, unspecified; K27.9 Peptic ulcer, site unspecified, unspecified as acute or chronic, without hemorrhage or perforation; I08.1 Rheumatic disorders of both mitral and tricuspid valves; I27.20 Pulmonary hypertension, unspecified; I25.5 Ischemic cardiomyopathy; E78.2 Mixed hyperlipidemia; F17.210 Nicotine dependence, cigarettes, uncomplicated; K59.00 Constipation, unspecified; Z79.01 Long term (current) use of anticoagulants; Z95.810 Presence of automatic (implantable) cardiac defibrillator; Z79.82 Long term (current) use of aspirin; Z95.1 Presence of aortocoronary bypass graft; Z88.2 Allergy status to sulfonamides; Z88.8 Allergy status to other drugs, medicaments and biological substances; Z88.0 Allergy status to penicillin; Z86.73 Personal history of transient ischemic attack (TIA), and cerebral infarction without residual deficits
CPT/HCPCS: 36415; 71045; 80048; 81001; 82550; 82553; 82570; 83735; 83880; 84132; 84156; 84484; 85025; 86706; 86803; 93005; 93010; 96374; 96375; 99406; G0378; J1940; J2260; J2270; J2405

== ENCOUNTER 2018-09-06 21:43 | Inpatient (IN) | payer MEDICARE ==
[2018-09-06] MEDS ORDERED: SUBLIMAZE IV ONE (22:08)
[2018-09-06] MEDS ORDERED: ZOFRAN IV ONE (22:08)
[2018-09-06] MEDS ORDERED: ASPIRIN PO ONE (22:08)
[2018-09-06] MEDS ORDERED: NITRO-BID 2% TP ONE (22:08)
--- NOTE | 2018-09-06 22:11 | Emergency Department Report ---
HPI - General Chief Complaint: Chest Pain Time Seen by Provider: 09/06/18 21:58 - HPI HPI: Room 22 The patient is a 67-year-old female presenting with a chief complaint of chest pain. The patient states her symptoms began 2-3 days ago with substernal chest pain that has been intermittent and sharp in nature. Patient states her chest pain is associated with shortness of breath, diaphoresis and nausea without vomiting. The patient currently gets her chest pain score of 7/10. Patient states she had 2 cardiac stents placed 5 years ago and has not had a cardiac catheterization since. Location: Chest Duration: [See above] Quality: Sharp Severity: 7/10 Modifying factors: [see above] Context: [see above] Mode of transportation: [not driving] ED Past Medical Hx - Past Medical History Previous Medical History?: Yes Hx Hypertension: Yes Hx CVA: Yes (2016) Hx Heart Attack/AMI: Yes (2008) Hx Congestive Heart Failure: Yes Hx COPD: Yes (3 L nasal cannula) - Surgical History Past Surgical History?: Yes Hx Open Heart Surgery: Yes (CABG 3v) Hx Pacemaker: Yes (AICD) Additional Surgical History: Bypass in 2018 - Family History Family history: no significant - Social History Smoking Status: Former Smoker (none times months) Substance Use Type: None - Medications Home Medications: Home Medications Medication Instructions Recorded Confirmed Last Taken Type Aspirin [Adult Aspirin] 81 mg PO DAILY 02/24/18 06/25/18 05/09/18 History Duloxetine HCl 40 mg PO QDAY 02/24/18 06/25/18 05/09/18 History Spironolactone [Aldactone] 25 mg PO QDAY 02/24/18 06/25/18 05/09/18 History buPROPion SR [Wellbutrin SR] 150 mg PO BID 02/24/18 06/25/18 05/09/18 History Albuterol Sulfate [Ventolin HFA] 1 puff IH Q6H PRN 30 Days 03/03/18 06/25/18 05/09/18 Rx [email or web address] Buspirone HCl [busPIRone] 15 mg PO BID 05/10/18 06/25/18 05/09/18 History Carvedilol 12.5 mg PO BID 05/10/18 06/25/18 05/09/18 History Cyclobenzaprine [Flexeril 10 MG 10 mg PO TID PRN 05/10/18 06/25/18 05/09/18 History TAB] Diphenhydramine HCl [Allergy 25 mg PO DAILY 05/10/18 06/25/18 05/09/18 History Relief] ISOSORBIDE MONOnitrate [Imdur ER] 60 mg PO QDAY 05/10/18 06/25/18 05/09/18 History LORazepam [Ativan] 0.5 mg PO Q6H PRN 05/10/18 06/25/18 05/09/18 History Sertraline HCl [Zoloft] 50 mg PO DAILY 05/10/18 06/25/18 05/09/18 History hydrALAZINE [Apresoline TAB] 25 mg PO Q8HR 05/10/18 06/25/18 05/09/18 History Apixaban [Eliquis] 5 mg PO Q12HR #60 tablet 07/02/18 Unknown Rx Furosemide [Lasix TAB] 80 mg PO DAILY #30 tablet 07/02/18 Unknown Rx Pantoprazole [Protonix TAB] 40 mg PO QDAY #30 tablet 07/02/18 Unknown Rx Polyethylene Glycol 3350 [Miralax 17 gm PO BID PRN #30 powd.pack 07/02/18 Unknown Rx 3350] Sennosides/Docusate [Senokot S] 2 tab PO Q12H PRN #120 tablet 07/02/18 Unknown Rx metOLazone [Zaroxolyn] 5 mg PO QDAY #30 tablet 07/02/18 Unknown Rx ED Review of Systems ROS: Stated complaint: CHEST PAIN Other details as noted in HPI Constitutional: diaphoresis Eyes: denies: eye pain ENT: denies: throat pain Respiratory: shortness of breath Cardiovascular: chest pain Endocrine: no symptoms reported Gastrointestinal: nausea. denies: vomiting Genitourinary: denies: dysuria Musculoskeletal: denies: back pain Neurological: denies: headache Physical Exam - Physical Exam Vital Signs: Vital Signs 09/06/18 21:59 Temperature 98.2 F Pulse Rate 85 Respiratory 18 Rate Blood Pressure 137/78 O2 Sat by Pulse 100 Oximetry Physical Exam: GENERAL: The patient is well-developed well-nourished female lying on stretcher appearing to be in moderate discomfort. [] HEENT: Normocephalic. Atraumatic. Extraocular motions are intact. Patient has moist mucous membranes. NECK: Supple. Trachea midline CHEST/LUNGS: Crackles at the left base. There is no respiratory distress noted. HEART/CARDIOVASCULAR: Regular. There is no tachycardia. There is no gallop rub or murmur. ABDOMEN: Abdomen is soft, nontender. Patient has normal bowel sounds. There is no abdominal distention. SKIN: There is no rash. There is 2+ bilateral lower extremity pitting edema. There is no diaphoresis. NEURO: The patient is awake, alert, and oriented. The patient is cooperative. The patient has normal speech MUSCULOSKELETAL: There is no evidence of acute injury. ED Course Vital Signs 09/06/18 21:59 Temperature 98.2 F Pulse Rate 85 Respiratory 18 Rate Blood Pressure 137/78 O2 Sat by Pulse 100 Oximetry ED Medical Decision Making - Lab Data Result diagrams: 09/06/18 22:26 09/06/18 22:26 Laboratory Tests 09/06/18 09/06/18 22:26 22:26 WBC 4.9 RBC 3.44 L Hgb 12.1 Hct 36.7 MCV 107 H MCH 35 H MCHC 33 RDW 15.5 H Plt Count 210 Lymph % (Auto) 6.0 L Warren % (Auto) 10.6 H Eos % (Auto) 0.7 Baso % (Auto) 0.4 Lymph # 0.3 L Warren # 0.5 Eos # 0.0 Baso # 0.0 Seg Neutrophils % 82.3 H Seg Neutrophils # 4.0 Sodium 138 Potassium 4.5 Chloride 101.0 Carbon Dioxide 29 Anion Gap 13 BUN 18 H Creatinine 1.1 Estimated GFR 60 BUN/Creatinine Ratio 16 Glucose 110 H Calcium 8.5 Total Creatine Kinase 322 H CK-MB (CK-2) 3.8 CK-MB (CK-2) Rel Index 1.1 Troponin T < 0.010 NT-Pro-B Natriuret Pep 9937 H - EKG Data -: EKG Interpreted by Me EKG shows normal: sinus rhythm Rate: normal - EKG Data When compared to previous EKG there are: previous EKG unavailable Interpretation: other (low-voltage EKG, PVC) - Radiology Data Radiology results: report reviewed (chest x-ray), image reviewed (chest x-ray) interpreted by me: Chest [id number], CHF [facility] [address] [place] [address] XRay Report Signed Patient: PUJA HEDRICK MR#: [id number] : 1950 Acct:[id number] Age/Sex: 67 / F ADM Date: 09/06/18 Loc: ED Attending Dr: Ordering Physician: MARLINE ELIZALDE MD Date of Service: 09/06/18 Procedure(s): XR chest 1V ap Accession Number(s): [id number] cc: MARLINE ELIZALDE MD Fluoro Time In Minutes: PROCEDURE: XR CHEST 1V AP TECHNIQUE: Chest radiograph single view. HISTORY: chest pain COMPARISONS: June 25, 2018 . FINDINGS: Heart: Moderate degree cardiomegaly. Mediastinum/Vessels: Normal. Lungs/Pleural space: Bilateral lower lungs are partially obscured by cardiac shadow. Left costophrenic angle is also obscured by the cardiac shadow. Right pleural spaces clear. There is diffuse prominence of interstitial markings. Bony thorax: No acute osseous abnormality. Life support devices: A unipolar cardiac device is noted on the left side its leads in place. IMPRESSION: Findings most likely represent cardiomegaly with CHF. A two-view chest study is recommended whenever the patient's condition permits to rule out any infiltrates in the lower lungs.. This document is electronically signed by Sophie Valenzuela MD., Sep 06 2018 10:46:20 PM ET [place]cribed [place]: [facility] [place]ictated By: SOPHIE VALENZUELA Electronically Authenticated By: SOPHIE VALENZUELA Signed Date/Time: 09/06/182247 DD/ 21 TD/TT: 09/06/182221 - Differential Diagnosis ACS, CHF exacerbation, pericarditis, GERD Critical care attestation.: If time is entered above; I have spent that time in minutes in the direct care of this critically ill patient, excluding procedure time. ED Disposition Clinical Impression: Chest pain, CHF exacerbation, Shortness of breath Disposition: OP ADMIT IP TO THIS HOSP Is pt being admited?: Yes Does the pt Need Aspirin: Yes Condition: Fair Instructions: Chest Pain (ED) Referrals: PRIMARY CARE, [Primary Care Provider] - 3-5 Days Time of Disposition: 23:03 (hospitalist paged (Dr. Lorenza Martínez))
[2018-09-06 22:36] LABS: Basophils % (Auto) 0.4 % (0.0-1.8); Eosinophils % (Auto) 0.7 % (0.0-4.3); Hematocrit 36.7 % (30.3-42.9); Hemoglobin 12.1 gm/dl (10.1-14.3); Lymphocytes # (Auto) 0.3 K/mm3 (1.2-5.4); Mean Corpuscular HGB Conc 33 % (30-34); Mean Corpuscular Volume 107 fl (79-97); Monocytes # (Auto) 0.5 K/mm3 (0.0-0.8); Monocytes % (Auto) 10.6 % (0.0-7.3); Platelet Count 210 K/mm3 (140-440); Red Blood Count 3.44 M/mm3 (3.65-5.03); Red Cell Distribution Width 15.5 % (13.2-15.2)
--- NOTE | 2018-09-06 22:48 | XRay Report ---
PROCEDURE: XR CHEST 1V AP TECHNIQUE: Chest radiograph single view. HISTORY: chest pain COMPARISONS: June 25, 2018 . FINDINGS: Heart: Moderate degree cardiomegaly. Mediastinum/Vessels: Normal. Lungs/Pleural space: Bilateral lower lungs are partially obscured by cardiac shadow. Left costophren ic angle is also obscured by the cardiac shadow. Right pleural spaces clear. There is diffuse promine nce of interstitial markings. Bony thorax: No acute osseous abnormality. Life support devices: A unipolar cardiac device is noted on the left side its leads in place. IMPRESSION: Findings most likely represent cardiomegaly with CHF. A two-view chest study is recommended whenever the patient's condition permits to rule out any infilt rates in the lower lungs.. This document is electronically signed by Joshua Valenzuela MD., Sep 06 2018 10:46:20 PM ET
[2018-09-06 22:55] LABS: Creatine Kinase MB 3.8 ng/mL (0.0-4.0)
[2018-09-06 22:58] LABS: BUN/Creatinine Ratio 16; Blood Urea Nitrogen 18 mg/dL (7-17); Calcium 8.5 mg/dL (8.4-10.2); Hemolysis Index 13
[2018-09-06] MEDS ORDERED: LASIX IV ONE (23:03)
[2018-09-06 23:12] LABS: INR 1.09 (0.87-1.13)
--- NOTE | 2018-09-06 23:31 | History and Physical Report ---
History of Present Illness Date of examination: 09/06/18 History of present illness: 67-year-old woman with history of coronary artery disease, CHF, depression, COPD, CVA comes to the emergency room with complaints of PND, orthopnea, lower extremity edema. Also complaining of chest pain located in the epigastric area that started 2 days ago, sharp, intermittent and 5 minutes, relieved with nitroglycerin, intensity 5/10, radiating to the left arm. Admits to nausea, shortness of breath, palpitation. She had a cardiac cath in 2018, there were no target lesions for revascularization, medical management was recommended afterload reduction Review of systems Constitutional: no weight loss, chills, fever Ears, eyes, nose, mouth and throat: no nasal congestion, no nasal discharge, no sinus pressure, no vision change, no red eye. Neck: No neck pain or rigidity. Cardiovascular: no palpitations, chest pain Respiratory: no cough, shortness of breath Gastrointestinal: no hematochezia, abdominal pain Genitourinary : no frequency , no hematuria Musculoskeletal: no joint swelling or muscle ache Integumentary: no rash, no pruritis Neurological: no parathesias, no focal weakness Endocrine: no cold or heat intolerance, no polyuria or polydipsia Hematologic/Lymphatic: no easy bruising, no easy bleeding, no gland swelling Allergic/Immunologic: no urticaria, no angioedema. PAST MEDICAL HISTORY:coronary artery disease, CHF, depression, COPD, CV PAST SURGICAL HISTORY: AICD, hysterectomy SOCIAL HISTORY: Denies alcohol, drugs, tobacco FAMILY HISTORY: Hypertension Medications and Allergies Allergies Allergy/AdvReac Type Severity Reaction Status Date / Time lisinopril Allergy Anaphylaxis Verified 02/24/18 09:15 Penicillins Allergy Seizure Verified 02/24/18 09:15 Sulfa (Sulfonamide AdvReac Hives Verified 02/24/18 09:15 Antibiotics) Home Medications Medication Instructions Recorded Confirmed Last Taken Type Aspirin [Adult Aspirin] 81 mg PO DAILY 02/24/18 06/25/18 05/09/18 History Duloxetine HCl 40 mg PO QDAY 02/24/18 06/25/18 05/09/18 History Spironolactone [Aldactone] 25 mg PO QDAY 02/24/18 06/25/18 05/09/18 History buPROPion SR [Wellbutrin SR] 150 mg PO BID 02/24/18 06/25/18 05/09/18 History Albuterol Sulfate [Ventolin HFA] 1 puff IH Q6H PRN 30 Days 03/03/18 06/25/18 05/09/18 Rx [email or web address] Buspirone HCl [busPIRone] 15 mg PO BID 05/10/18 06/25/18 05/09/18 History Carvedilol 12.5 mg PO BID 05/10/18 06/25/18 05/09/18 History Cyclobenzaprine [Flexeril 10 MG 10 mg PO TID PRN 05/10/18 06/25/18 05/09/18 History TAB] Diphenhydramine HCl [Allergy 25 mg PO DAILY 05/10/18 06/25/18 05/09/18 History Relief] ISOSORBIDE MONOnitrate [Imdur ER] 60 mg PO QDAY 05/10/18 06/25/18 05/09/18 History LORazepam [Ativan] 0.5 mg PO Q6H PRN 05/10/18 06/25/18 05/09/18 History Sertraline HCl [Zoloft] 50 mg PO DAILY 05/10/18 06/25/18 05/09/18 History hydrALAZINE [Apresoline TAB] 25 mg PO Q8HR 05/10/18 06/25/18 05/09/18 History Apixaban [Eliquis] 5 mg PO Q12HR #60 tablet 07/02/18 Unknown Rx Furosemide [Lasix TAB] 80 mg PO DAILY #30 tablet 07/02/18 Unknown Rx Pantoprazole [Protonix TAB] 40 mg PO QDAY #30 tablet 07/02/18 Unknown Rx Polyethylene Glycol 3350 [Miralax 17 gm PO BID PRN #30 powd.pack 07/02/18 Unknown Rx 3350] Sennosides/Docusate [Senokot S] 2 tab PO Q12H PRN #120 tablet 07/02/18 Unknown Rx metOLazone [Zaroxolyn] 5 mg PO QDAY #30 tablet 07/02/18 Unknown Rx Exam - Physical Exam Narrative exam: General Apperance: The patient lying in bed, breathing comfortable HEENT: Normocephalic, atraumatic. Pupils equally round and reactive to light, EOMI, no sclericterus or JVD or thyromegaly or nodule. , no carotid bruit, muc ous membranes moist, no exudate or erythema Heart: S1-S2, regular is rhythm Lungs: Crackles bilaterally, breathing comfortable Abdomen: Positive bowel sounds, soft, nontender, nondistended, no organomegaly Extremities: + edema cyanosis clubbing Skin: no rash, nodule, warm and dry Neuro: cranial nerves 2-12 intact, speech is fluent, left-sided weakness/no sensory intact - Constitutional Vitals: Temp Pulse Resp BP Pulse Ox 98.2 F 77 18 131/82 100 09/06/18 21:59 09/06/18 22:20 09/06/18 21:59 09/06/18 22:20 09/06/18 21:59 Results - Labs CBC & Chem 7: 09/06/18 22:26 09/06/18 22:26 Labs: Abnormal lab results 09/06/18 09/06/18 Range/Units 22:26 22:26 RBC 3.44 L (3.65-5.03) M/mm3 MCV 107 H (79-97) fl MCH 35 H (28-32) pg RDW 15.5 H (13.2-15.2) % Lymph % (Auto) 6.0 L (13.4-35.0) % Geary % (Auto) 10.6 H (0.0-7.3) % Lymph # 0.3 L (1.2-5.4) K/mm3 Seg Neutrophils % 82.3 H (40.0-70.0) % BUN 18 H (7-17) mg/dL Glucose 110 H (65-100) mg/dL Total Creatine Kinase 322 H (30-135) units/L NT-Pro-B Natriuret Pep 9937 H (0-900) pg/mL - Imaging and Cardiology EKG: image reviewed Chest x-ray: report reviewed Assessment and Plan Assessment CHF exacerbation, acute on chronic systolic Chest pain Coronary artery disease COPD, stable Depression Plan Admit to medicine Diurese with IV Lasix Monitor I's and O's, daily weights Check cardiac enzymes, echo, consult cardiology Start aspirin, beta kendall, no VERÓNICA inhibitor secondary to allergy Continue appropiate outpatient medications DVT prophylaxis
[2018-09-06] MEDS ORDERED: SODIUM CHLORIDE FLUSH SYRINGE 10 ML IV PRN (23:59)
[2018-09-07] MEDS ORDERED: LASIX ONE (00:32)
[2018-09-07 01:03] LABS: Creatine Kinase MB 3.4 ng/mL (0.0-4.0)
[2018-09-07] MEDS: LASIX IV SCH ×2 (05:40→17:48)
[2018-09-07 07:50] LABS: Basophils % (Auto) 0.6 % (0.0-1.8); Eosinophils % (Auto) 0.8 % (0.0-4.3); Hematocrit 34.8 % (30.3-42.9); Hemoglobin 11.6 gm/dl (10.1-14.3); Lymphocytes # (Auto) 0.2 K/mm3 (1.2-5.4); Lymphocytes % (Auto) 6.7 % (13.4-35.0); Mean Corpuscular HGB Conc 33 % (30-34); Mean Corpuscular Volume 105 fl (79-97); Monocytes # (Auto) 0.4 K/mm3 (0.0-0.8); Monocytes % (Auto) 12.4 % (0.0-7.3); Platelet Count 183 K/mm3 (140-440); Red Blood Count 3.33 M/mm3 (3.65-5.03); Red Cell Distribution Width 15.2 % (13.2-15.2)
[2018-09-07 08:10] LABS: BUN/Creatinine Ratio 19; Blood Urea Nitrogen 19 mg/dL (7-17); Calcium 7.9 mg/dL (8.4-10.2); Hemolysis Index 11
--- NOTE | 2018-09-07 09:28 | Consultation ---
History of Present Illness Consult date: 09/07/18 Consult reason: chest pain, congestive heart failure, hypertension History of present illness: Obese female presenting with shortness of breath and chest pain at rest patient has been admitted to [facility] as well as [facility] with chest pains and shortness of breath she states on her last admisssion to [facility] she was placed on hospice. Last echocardiogram documented a dilated ischemic cardiomyopathy with an ejection fraction of 10- 15%. Cardiac catheterization done on March 2018 revealed patent saphenous vein graft to LAD, obtuse marginal branch and PDA with a sten to diagonal. Patient's currently stable EKG shows a sinus rhythm with frequent PVCs which are uniform and morphology. Past History Past Medical History: CAD, COPD, hypertension Past Surgical History: CABG, PTCA Social history: single. denies: smoking, alcohol abuse Family history: no significant family history Medications and Allergies Allergies Allergy/AdvReac Type Severity Reaction Status Date / Time lisinopril Allergy Anaphylaxis Verified 02/24/18 09:15 Penicillins Allergy Seizure Verified 02/24/18 09:15 Sulfa (Sulfonamide AdvReac Hives Verified 02/24/18 09:15 Antibiotics) Home Medications Medication Instructions Recorded Confirmed Last Taken Type Aspirin [Adult Aspirin] 81 mg PO DAILY 02/24/18 06/25/18 05/09/18 History Duloxetine HCl 40 mg PO QDAY 02/24/18 06/25/18 05/09/18 History Spironolactone [Aldactone] 25 mg PO QDAY 02/24/18 06/25/18 05/09/18 History buPROPion SR [Wellbutrin SR] 150 mg PO BID 02/24/18 06/25/18 05/09/18 History Albuterol Sulfate [Ventolin HFA] 1 puff IH Q6H PRN 30 Days 03/03/18 06/25/18 05/09/18 Rx [email or web address] Buspirone HCl [busPIRone] 15 mg PO BID 05/10/18 06/25/18 05/09/18 History Carvedilol 12.5 mg PO BID 05/10/18 06/25/18 05/09/18 History Cyclobenzaprine [Flexeril 10 MG 10 mg PO TID PRN 05/10/18 06/25/18 05/09/18 History TAB] Diphenhydramine HCl [Allergy 25 mg PO DAILY 05/10/18 06/25/18 05/09/18 History Relief] ISOSORBIDE MONOnitrate [Imdur ER] 60 mg PO QDAY 05/10/18 06/25/18 05/09/18 Hist ory LORazepam [Ativan] 0.5 mg PO Q6H PRN 05/10/18 06/25/18 05/09/18 History Sertraline HCl [Zoloft] 50 mg PO DAILY 05/10/18 06/25/18 05/09/18 History hydrALAZINE [Apresoline TAB] 25 mg PO Q8HR 05/10/18 06/25/18 05/09/18 History Apixaban [Eliquis] 5 mg PO Q12HR #60 tablet 07/02/18 Unknown Rx Furosemide [Lasix TAB] 80 mg PO DAILY #30 tablet 07/02/18 Unknown Rx Pantoprazole [Protonix TAB] 40 mg PO QDAY #30 tablet 07/02/18 Unknown Rx Polyethylene Glycol 3350 [Miralax 17 gm PO BID PRN #30 powd.pack 07/02/18 Unknown Rx 3350] Sennosides/Docusate [Senokot S] 2 tab PO Q12H PRN #120 tablet 07/02/18 Unknown Rx metOLazone [Zaroxolyn] 5 mg PO QDAY #30 tablet 07/02/18 Unknown Rx Active Meds: Active Medications Acetaminophen (Tylenol) 650 mg PO Q4H PRN PRN Reason: Pain MILD(1-3)/Fever >100.5/VILLAVICENCIO Aspirin (Baby Aspirin) 81 mg PO QDAY [facility] Carvedilol (Coreg) 3.125 mg PO BID [facility] Enoxaparin Sodium (Lovenox) 40 mg SUB-Q QDAY@1000 [facility] Furosemide (Lasix) 40 mg IV BID@0600,1800 [facility] Last Admin: 09/07/18 05:40 Dose: 40 mg Documented by: Ondansetron HCl (Zofran) 4 mg IV Q8H PRN PRN Reason: Nausea And Vomiting Oxycodone/Acetaminophen (Percocet 5/325) 1 tab PO Q6H PRN PRN Reason: Pain, Moderate (4-6) Sodium Chloride (Sodium Chloride Flush Syringe 10 Ml) 10 ml IV BID RADHA Sodium Chloride (Sodium Chloride Flush Syringe 10 Ml) 10 ml IV PRN PRN PRN Reason: LINE FLUSH Review of Systems Constitutional: fatigue, weakness, no weight loss, no weight gain, no fever, no chills Ears, nose, mouth and throat: no ear pain, no ear discharge, no hoarseness Cardiovascular: chest pain, orthopnea, shortness of breath, dyspnea on exertion Respiratory: no cough with sputum, no wheezing Gastrointestinal: no abdominal pain, no nausea, no vomiting, no diarrhea Genitourinary Female: no dysuria, no urinary frequency, no urgency Musculoskeletal: no neck stiffness, no neck pain, no hot joints, no morning stiffness Integumentary: no rash, no pruritis Neurological: no paralysis, no weakness, no parathesias, no numbness Endocrine: no polyphagia, no polydipsia, no polyuria, no nocturia Hematologic/Lymphatic: no easy bruising Allergic/Immunologic: no urticaria, no allergic rhinitis Physical Examination Vital Signs Pulse Ox 99 09/06/18 21:51 General appearance: no acute distress, obese HEENT: Positive: PERRL, Normocephaly, Mucus Membranes Moist Neck: Positive: neck supple, trachea midline. Negative: JVD/HJR Cardiac: Positive: Regular Rate, S1/S2, S3, PMI, Dilated, Laterally Displaced Lungs: Positive: clear to auscultation, No Wheeze, Rales, Rhonchi Neuro: Positive: Grossly Intact Abdomen: Positive: Unremarkable, Soft, Organomegaly Extremities: Absent: edema Results 09/07/18 07:24 09/07/18 07:24 Cardiac Enzymes 09/06/18 09/07/18 09/07/18 Range/Units 22:26 00:16 07:24 CK-MB (CK-2) 3.8 3.4 3.0 (0.0-4.0) ng/mL Coagulation 09/06/18 Range/Units 22:26 PT 14.8 (12.2-14.9) Sec. INR 1.09 (0.87-1.13) CBC 09/06/18 09/07/18 Range/Units 22:26 07:24 WBC 4.9 3.4 L (4.5-11.0) K/mm3 RBC 3.44 L 3.33 L (3.65-5.03) M/mm3 Hgb 12.1 11.6 (10.1-14.3) gm/dl Hct 36.7 34.8 (30.3-42.9) % Plt Count 210 183 (140-440) K/mm3 Lymph # 0.3 L 0.2 L (1.2-5.4) K/mm3 Tyrrell # 0.5 0.4 (0.0-0.8) K/mm3 Eos # 0.0 0.0 (0.0-0.4) K/mm3 Baso # 0.0 0.0 (0.0-0.1) K/mm3 Comprehensive Metabolic Panel 09/06/18 09/07/18 Range/Units 22:26 07:24 Sodium 138 140 (137-145) mmol/L Potassium 4.5 4.3 (3.6-5.0) mmol/L Chloride 101.0 103.4 (98-107) mmol/L Carbon Dioxide 29 29 (22-30) mmol/L BUN 18 H 19 H (7-17) mg/dL Creatinine 1.1 1.0 (0.7-1.2) mg/dL Glucose 110 H 106 H (65-100) mg/dL Calcium 8.5 7.9 L (8.4-10.2) mg/dL - EKG Interpretation EKG: sinus rhythm, normal axis, no acute changes EKG interpretations - Telemetry EKG Rhythm: Sinus Rhythm Assessment and Plan 1. Unstable angina 2. Chronic combined systolic and diastolic heart failure 3. Coronary artery disease status post Age and PCI 4. Dilated ischemic cardiomyopathy LVEF 10-15% 5. Chronic obstructive pulmonary disease 6. Cerebrovascular accident 7. Essential hypertension 8. Obesity 9. Presence of AICD Plan. Patient with end-stage ischemic cardiomyopathy presenting with chest pain. Patient in hospice at this time we will adjust anti-ischemic medication and continue conservative cardiac management nor for the invasive or noninvasive cardiac workup is planned
[2018-09-07] MEDS ORDERED: LOVENOX SUB-Q SCH ×2 (10:00)
[2018-09-07] MEDS: BABY ASPIRIN PO SCH (10:13)
[2018-09-07] MEDS: COREG PO SCH ×2 (10:14→23:47)
[2018-09-07] MEDS: SODIUM CHLORIDE FLUSH SYRINGE 10 ML IV SCH ×2 (10:14→23:49)
--- NOTE | 2018-09-07 11:26 | Progress Note ---
Assessment and Plan Assessment and plan: --Acute exacerbation of systolic congestive heart failure Ejection fraction 10-15%, and failure medication, input output monitoring Fluid restriction, low sodium diet, cardiology evaluation --Chest pain; rule out acute coronary syndrome, patient has extensive cardiac history Serial cardiac enzymes and EKG, echocardiogram, cardiology consult Possible stress test if no improvement of symptoms --History of coronary artery disease, status post CABG, status post PCI Continue current cardiac medications, supportive care --History of depression; continue antidepression medications Denies suicidal thoughts or ideation, consider psych evaluation if needed --A. FIB PAROXYSMAL; rate controlled, continue beta blockers Anticoagulation with the liquids --History of COPD; well compensated, oxygen nebulizers and supportive care --DVT prophylaxis; on Eliquis --Full code; Monitor the patient closely and adjust management as needed Follow cardiology evaluation and recommendations Possible discharge in 1-2 days if stable Plan of care reviewed with the patient and her nurse History Interval history: Patient seen and examined medical records reviewed. 67-year-old morbidly obese female patient with significant history of coronary artery disease status post CABG status post PCI in March 2018, ischemic cardiomyopathy with ejection fraction of 10- 15% with chest pain and shortness of breath, paroxysmal nocturnal dyspnea and orthopnea. Today patient feels slightly better Continues to have mild shortness of breath Denies chest pain Vital signs noted Hospitalist Physical - Constitutional Vitals: Temp Pulse Resp BP Pulse Ox 97.4 F L 69 19 120/69 96 09/07/18 04:59 09/07/18 10:14 09/07/18 10:00 09/07/18 10:14 09/07/18 10:16 General appearance: Present: no acute distress, obese (morbidly obese) - EENT Eyes: Present: PERRL, EOM intact - Neck Neck: Present: supple, normal ROM - Respiratory Respiratory effort: normal Respiratory: bilateral: diminished, rales, negative: rhonchi, wheezing - Cardiovascular Rhythm: regular Heart Sounds: Present: S1 & S2 - Extremities Extremities: no ischemia Extremity abnormal: edema - Abdominal General gastrointestinal: soft, non-tender, non-distended, normal bowel sounds - Integumentary Integumentary: Present: clear, warm - Psychiatric Psychiatric: appropriate mood/affect, cooperative - Neurologic Neurologic: CNII-XII intact, moves all extremities Results - Labs CBC & Chem 7: 09/07/18 07:24 09/07/18 07:24 Labs: Laboratory Last Values WBC 3.4 K/mm3 (4.5-11.0) L 09/07/18 07:24 RBC 3.33 M/mm3 (3.65-5.03) L 09/07/18 07:24 Hgb 11.6 gm/dl (10.1-14.3) 09/07/18 07:24 Hct 34.8 % (30.3-42.9) 09/07/18 07:24 MCV 105 fl (79-97) H 09/07/18 07:24 MCH 35 pg (28-32) H 09/07/18 07:24 MCHC 33 % (30-34) 09/07/18 07:24 RDW 15.2 % (13.2-15.2) 09/07/18 07:24 Plt Count 183 K/mm3 (140-440) 09/07/18 07:24 Lymph % (Auto) 6.7 % (13.4-35.0) L 09/07/18 07:24 [place] % (Auto) 12.4 % (0.0-7.3) H 09/07/18 07:24 Eos % (Auto) 0.8 % (0.0-4.3) 09/07/18 07:24 Baso % (Auto) 0.6 % (0.0-1.8) 09/07/18 07:24 Lymph # 0.2 K/mm3 (1.2-5.4) L 09/07/18 07:24 [place] # 0.4 K/mm3 (0.0-0.8) 09/07/18 07:24 Eos # 0.0 K/mm3 (0.0-0.4) 09/07/18 07:24 Baso # 0.0 K/mm3 (0.0-0.1) 09/07/18 07:24 Seg Neutrophils % 79.5 % (40.0-70.0) H 09/07/18 07:24 Seg Neutrophils # 2.7 K/mm3 (1.8-7.7) 09/07/18 07:24 PT 14.8 Sec. (12.2-14.9) 09/06/18 22:26 INR 1.09 (0.87-1.13) 09/06/18 22:26 Sodium 140 mmol/L (137-145) 09/07/18 07:24 Potassium 4.3 mmol/L (3.6-5.0) 09/07/18 07:24 Chloride 103.4 mmol/L (98-107) 09/07/18 07:24 Carbon Dioxide 29 mmol/L (22-30) 09/07/18 07:24 12 mmol/L 09/07/18 07:24 BUN 19 mg/dL (7-17) H 09/07/18 07:24 1.0 mg/dL (0.7-1.2) 09/07/18 07:24 Estimated GFR > 60 ml/min 09/07/18 07:24 19 % 09/07/18 07:24 Glucose 106 mg/dL (65-100) H 09/07/18 07:24 Calcium 7.9 mg/dL (8.4-10.2) L 09/07/18 07:24 239 units/L (30-135) H 09/07/18 07:24 CK-MB (CK-2) 3.0 ng/mL (0.0-4.0) 09/07/18 07:24 CK-MB (CK-2) Rel Index 1.2 (0-4) 09/07/18 07:24 < 0.010 ng/mL (0.00-0.029) 09/07/18 07:24 NT-Pro-B Natriuret Pep 9937 pg/mL (0-900) H 09/06/18 22:26 Active Medications - Current Medications Current Medications: Generic Name Dose Route Start Last Admin Trade Name Freq PRN Reason Stop Dose Admin Acetaminophen 650 mg 09/06/18 23:59 Tylenol PO Q4H PRN Pain MILD(1-3)/Fever >100.5/VILLAVICENCIO Aspirin 81 mg 09/07/18 10:00 09/07/18 10:13 Baby Aspirin PO 81 mg QDAY RADHA Administration Carvedilol 3.125 mg 09/07/18 10:00 09/07/18 10:14 Coreg PO 3.125 mg BID RADHA Administration Enoxaparin Sodium 40 mg 09/07/18 10:00 09/07/18 10:15 Lovenox SUB-Q 40 mg QDAY@1000 RADHA Administration Furosemide 40 mg 09/07/18 06:00 09/07/18 05:40 Lasix IV 40 mg BID@0600,1800 RADHA Administration Ondansetron HCl 4 mg 09/06/18 23:59 Zofran IV Q8H PRN Nausea And Vomiting Oxycodone/Acetaminophen 1 tab 09/06/18 23:59 Percocet 5/325 PO Q6H PRN Pain, Moderate (4-6) Sodium Chloride 10 ml 09/07/18 10:00 09/07/18 10:14 Sodium Chloride Flush Syringe 10 Ml IV 10 ml BID RADHA Administration Sodium Chloride 10 ml 09/06/18 23:59 Sodium Chloride Flush Syringe 10 Ml IV PRN PRN LINE FLUSH
[2018-09-07] MEDS: IMDUR PO SCH (12:15)
[2018-09-07] MEDS: ZOLOFT PO SCH (12:15)
[2018-09-07] MEDS: ZAROXOLYN PO SCH (12:15)
[2018-09-07] MEDS: ALDACTONE PO SCH (12:17)
[2018-09-07] MEDS: PERCOCET 5/325 PO PRN ×3 (13:01→23:49)
[2018-09-07] MEDS: APRESOLINE PO SCH ×2 (14:34→23:47)
[2018-09-07] MEDS ORDERED: NON-FORMULARY (Buspirone Hcl [Buspirone] 15 MG) PO SCH (22:00)
[2018-09-07] MEDS: ELIQUIS PO SCH (23:47)
[2018-09-07] MEDS: WELLBUTRIN SR PO SCH (23:47)
[2018-09-07] MEDS: BUSPAR PO SCH (23:48)
[2018-09-08] MEDS: TYLENOL PO PRN (04:32)
[2018-09-08] MEDS: APRESOLINE PO SCH ×3 (05:53→22:55)
[2018-09-08] MEDS: LASIX IV SCH ×2 (05:53→17:51)
[2018-09-08] MEDS ORDERED: DULOXETINE HCL 40 MG PO SCH (10:00)
[2018-09-08] MEDS: BUSPAR PO SCH ×2 (10:48→22:55)
[2018-09-08] MEDS: ZAROXOLYN PO SCH (10:48)
[2018-09-08] MEDS: BABY ASPIRIN PO SCH (10:48)
[2018-09-08] MEDS: WELLBUTRIN SR PO SCH ×2 (10:48→22:55)
[2018-09-08] MEDS: ZOLOFT PO SCH (10:48)
[2018-09-08] MEDS: IMDUR PO SCH (10:49)
[2018-09-08] MEDS: COREG PO SCH ×2 (10:49→22:55)
[2018-09-08] MEDS: ALDACTONE PO SCH (10:49)
[2018-09-08] MEDS: ELIQUIS PO SCH ×2 (10:50→22:55)
[2018-09-08] MEDS: SODIUM CHLORIDE FLUSH SYRINGE 10 ML IV SCH ×2 (10:50→22:55)
--- NOTE | 2018-09-08 11:19 | Progress Note ---
Assessment and Plan 1. Unstable angina 2. Chronic combined systolic and diastolic heart failure 3. Coronary artery disease status post Age and PCI 4. Dilated ischemic cardiomyopathy LVEF 10-15% 5. Chronic obstructive pulmonary disease 6. Cerebrovascular accident 7. Essential hypertension 8. Obesity 9. Presence of AICD Plan. Patient is stable chest pain free. Patient in hospice at this time she will continue anti-ischemic medication and continue conservative cardiac management no further invasive or noninvasive cardiac workup is planned Subjective Date of service: 09/08/18 Interval history: No cardiac symptoms feels better Objective Vital Signs Temp Pulse Pulse Pulse Resp BP BP 09/08/18 10:49 62 120/72 09/08/18 08:51 09/08/18 05:53 62 120/72 09/08/18 04:27 97.7 F 09/08/18 04:26 67 20 105/59 09/08/18 00:03 98.0 F 09/08/18 00:02 75 20 110/83 09/08/18 00:00 75 09/07/18 23:49 20 09/07/18 23:47 64 129/74 09/07/18 23:16 09/07/18 22:00 75 64 20 09/07/18 20:22 64 20 129/74 09/07/18 17:46 98.1 F 72 19 115/72 09/07/18 16:36 73 106/77 09/07/18 14:34 79 105/62 09/07/18 14:33 98.2 F 79 19 105/60 09/07/18 12:17 69 118/72 09/07/18 12:15 69 118/72 09/07/18 11:48 98.6 F 63 20 105/75 Pulse Ox 09/08/18 10:49 09/08/18 08:51 96 09/08/18 05:53 09/08/18 04:27 09/08/18 04:26 99 09/08/18 00:03 09/08/18 00:02 93 09/08/18 00:00 09/07/18 23:49 09/07/18 23:47 09/07/18 23:16 99 09/07/18 22:00 98 09/07/18 20:22 98 09/07/18 17:46 09/07/18 16:36 98 09/07/18 14:34 09/07/18 14:33 09/07/18 12:17 09/07/18 12:15 09/07/18 11:48 100 - Physical Examination General: Appears Well HEENT: Positive: PERRL, Normocephaly, Mucus Membranes Moist Neck: Positive: neck supple, trachea midline. Negative: JVD/HJR Cardiac: Positive: Regular Rate, S1/S2, PMI, Laterally Displaced. Negative: S3, S4 Lungs: Positive: clear to auscultation, No Wheeze, Rales, Rhonchi Neuro: Positive: Grossly Intact Abdomen: Positive: Unremarkable, Soft, Organomegaly Extremities: Absent: edema - Imaging and Cardiology EKG: image reviewed
--- NOTE | 2018-09-08 13:53 | Progress Note ---
Assessment and Plan Assessment and plan: 67-year-old morbidly obese female patient with significant history of coronary artery disease status post CABG status post PCI in March 2018, ischemic cardiomyopathy with ejection fraction of 10- 15% with chest pain and shortness of breath, paroxysmal nocturnal dyspnea and orthopnea., Cardiology evaluated medications optimized --Acute exacerbation of systolic congestive heart failure Ejection fraction 10-15%, and failure medication, input output monitoring Fluid restriction, low sodium diet, cardiology following --Chest pain; rule out acute coronary syndrome, patient has extensive cardiac history Serial cardiac enzymes and EKG, echocardiogram, cardiology evaluation noted No Plans of ischemia workup at this point, the current management --History of coronary artery disease, status post CABG, status post PCI Continue current cardiac medications, supportive care --History of depression; continue antidepression medications Denies suicidal thoughts or ideation, consider psych evaluation if needed --A. FIB PAROXYSMAL; rate controlled, continue beta blockers Anticoagulation with Eliquis --History of COPD; well compensated, oxygen nebulizers and supportive care --DVT prophylaxis; on Eliquis --Full code; Plan of care reviewed with the patient and her nurse Disposition; follow cardiology recommendations discharge in 1-2 days if stable, History Interval history: Sincerely and examined medical records reviewed Patient feels slightly better still complains of some shortness of breath And chest discomfort, denies chest pain Vital signs reviewed Hospitalist Physical - Constitutional Vitals: Temp Pulse Resp BP Pulse Ox 98.6 F 59 L 20 104/74 98 09/08/18 11:48 09/08/18 11:48 09/08/18 12:00 09/08/18 11:48 09/08/18 11:48 General appearance: Present: no acute distress, well-nourished, obese (morbidly obese) - EENT Eyes: Present: PERRL, EOM intact - Neck Neck: Present: supple, normal ROM - Respiratory Respiratory effort: normal Respiratory: bilateral: diminished, rales, negative: rhonchi, wheezing - Cardiovascular Rhythm: regular Heart Sounds: Present: S1 & S2 - Extremities Extremities: no ischemia, No edema - Abdominal General gastrointestinal: soft, non-tender, non-distended, normal bowel sounds - Integumentary Integumentary: Present: clear, warm - Psychiatric Psychiatric: appropriate mood/affect, cooperative - Neurologic Neurologic: CNII-XII intact, moves all extremities Results - Labs CBC & Chem 7: 09/07/18 07:24 09/07/18 07:24 Labs: Laboratory Last Values WBC 3.4 K/mm3 (4.5-11.0) L 09/07/18 07:24 RBC 3.33 M/mm3 (3.65-5.03) L 09/07/18 07:24 Hgb 11.6 gm/dl (10.1-14.3) 09/07/18 07:24 Hct 34.8 % (30.3-42.9) 09/07/18 07:24 MCV 105 fl (79-97) H 09/07/18 07:24 MCH 35 pg (28-32) H 09/07/18 07:24 MCHC 33 % (30-34) 09/07/18 07:24 RDW 15.2 % (13.2-15.2) 09/07/18 07:24 Plt Count 183 K/mm3 (140-440) 09/07/18 07:24 Lymph % (Auto) 6.7 % (13.4-35.0) L 09/07/18 07:24 [place] % (Auto) 12.4 % (0.0-7.3) H 09/07/18 07:24 Eos % (Auto) 0.8 % (0.0-4.3) 09/07/18 07:24 Baso % (Auto) 0.6 % (0.0-1.8) 09/07/18 07:24 Lymph # 0.2 K/mm3 (1.2-5.4) L 09/07/18 07:24 [place] # 0.4 K/mm3 (0.0-0.8) 09/07/18 07:24 Eos # 0.0 K/mm3 (0.0-0.4) 09/07/18 07:24 Baso # 0.0 K/mm3 (0.0-0.1) 09/07/18 07:24 Seg Neutrophils % 79.5 % (40.0-70.0) H 09/07/18 07:24 Seg Neutrophils # 2.7 K/mm3 (1.8-7.7) 09/07/18 07:24 PT 14.8 Sec. (12.2-14.9) 09/06/18 22:26 INR 1.09 (0.87-1.13) 09/06/18 22:26 Sodium 140 mmol/L (137-145) 09/07/18 07:24 Potassium 4.3 mmol/L (3.6-5.0) 09/07/18 07:24 Chloride 103.4 mmol/L (98-107) 09/07/18 07:24 Carbon Dioxide 29 mmol/L (22-30) 09/07/18 07:24 12 mmol/L 09/07/18 07:24 BUN 19 mg/dL (7-17) H 09/07/18 07:24 1.0 mg/dL (0.7-1.2) 09/07/18 07:24 Estimated GFR > 60 ml/min 09/07/18 07:24 19 % 09/07/18 07:24 Glucose 106 mg/dL (65-100) H 09/07/18 07:24 POC Glucose 125 (70-105) H 09/07/18 18:33 Calcium 7.9 mg/dL (8.4-10.2) L 09/07/18 07:24 239 units/L (30-135) H 09/07/18 07:24 CK-MB (CK-2) 3.0 ng/mL (0.0-4.0) 09/07/18 07:24 CK-MB (CK-2) Rel Index 1.2 (0-4) 09/07/18 07:24 < 0.010 ng/mL (0.00-0.029) 09/07/18 07:24 NT-Pro-B Natriuret Pep 9937 pg/mL (0-900) H 09/06/18 22:26 Active Medications - Current Medications Current Medications: Generic Name Dose Route Start Last Admin Trade Name Freq PRN Reason Stop Dose Admin Acetaminophen 650 mg 09/06/18 23:59 09/08/18 04:32 Tylenol PO 650 mg Q4H PRN Administration Pain MILD(1-3)/Fever >100.5/VILLAVICENCIO Apixaban 5 mg 09/07/18 22:00 09/08/18 10:50 Eliquis PO 5 mg Q12HR RADHA Administration Protocol Aspirin 81 mg 09/07/18 10:00 09/08/18 10:48 Baby Aspirin PO 81 mg QDAY RADHA Administration Bupropion HCl 150 mg 09/07/18 22:00 09/08/18 10:48 Wellbutrin Sr PO 150 mg BID RADHA Administration Buspirone HCl 15 mg 09/07/18 22:00 09/08/18 10:48 Buspar PO 15 mg BID RADHA Administration Carvedilol 3.125 mg 09/07/18 10:00 09/08/18 10:49 Coreg PO 3.125 mg BID RADHA Administration Furosemide 40 mg 09/07/18 06:00 09/08/18 05:53 Lasix IV 40 mg BID@0600,1800 RADHA Administration Hydralazine HCl 25 mg 09/07/18 14:00 09/08/18 05:53 Apresoline PO 25 mg Q8HR RADHA Administration Isosorbide Mononitrate 60 mg 09/07/18 12:00 09/08/18 10:49 Imdur PO 60 mg QDAY RADHA Administration Metolazone 5 mg 09/07/18 12:00 09/08/18 10:48 Zaroxolyn PO 5 mg QDAY RADHA Administration Ondansetron HCl 4 mg 09/06/18 23:59 Zofran IV Q8H PRN Nausea And Vomiting Oxycodone/Acetaminophen 1 tab 09/06/18 23:59 09/07/18 23:49 Percocet 5/325 PO 1 tab Q6H PRN Administration Pain, Moderate (4-6) Sertraline HCl 50 mg 09/07/18 12:00 09/08/18 10:48 Zoloft PO 50 mg DAILY RADHA Administration Sodium Chloride 10 ml 09/07/18 10:00 09/08/18 10:50 Sodium Chloride Flush Syringe 10 Ml IV 10 ml BID RADHA Administration Sodium Chloride 10 ml 09/06/18 23:59 Sodium Chloride Flush Syringe 10 Ml IV PRN PRN LINE FLUSH Spironolactone 25 mg 09/07/18 12:00 09/08/18 10:49 Aldactone PO 25 mg QDAY RADHA Administration
[2018-09-08] MEDS: PERCOCET 5/325 PO PRN ×2 (15:24→23:50)
[2018-09-09 06:27] LABS: Basophils % (Auto) 0.6 % (0.0-1.8); Eosinophils % (Auto) 0.7 % (0.0-4.3); Hematocrit 36.5 % (30.3-42.9); Hemoglobin 12.1 gm/dl (10.1-14.3); Lymphocytes # (Auto) 0.2 K/mm3 (1.2-5.4); Lymphocytes % (Auto) 6.6 % (13.4-35.0); Mean Corpuscular HGB Conc 33 % (30-34); Mean Corpuscular Volume 105 fl (79-97); Monocytes # (Auto) 0.4 K/mm3 (0.0-0.8); Monocytes % (Auto) 12.3 % (0.0-7.3); Platelet Count 192 K/mm3 (140-440); Red Blood Count 3.49 M/mm3 (3.65-5.03); Red Cell Distribution Width 14.8 % (13.2-15.2)
[2018-09-09] MEDS: APRESOLINE PO SCH ×3 (06:29→22:43)
[2018-09-09] MEDS: LASIX IV SCH ×2 (06:29→18:00)
[2018-09-09] MEDS: TYLENOL PO PRN ×2 (08:58→15:08)
--- NOTE | 2018-09-09 09:53 | Progress Note ---
Assessment and Plan Chest pain Chronic systolic heart failure Hx of LUE DVT Hx of coronary artery disease cardiac cath 03/2018 revealed patent SVG to LAD, patent SVG to OM, patent SVG to PDA and patent diagonal stent, LVEF 10-15%. Hx of Ischemic cardiomyopathy ejection fraction 10-15% by echo this admission Presence of single chamber cardiac defibrillator underlying paroxysmal atrial fibrillation previously treated with eliquis for oral anticoagulation therapy. Tobacco abuse Recommend: Continue medical therapy for chronic systolic heart failure, coronary artery disease and paroxysmal Afib. Otherwise, conservative cardiac management. Subjective Date of service: 09/09/18 Interval history: Patient is resting in bed comfortably. She denies chest pain and shortness of breath. Objective Vital Signs Temp Pulse Pulse Pulse Pulse Resp Resp 09/09/18 09:31 09/09/18 08:58 24 09/09/18 08:29 97.9 F 69 18 09/09/18 06:29 69 09/09/18 03:58 97.9 F 09/09/18 03:56 70 20 09/09/18 03:04 09/09/18 00:00 75 09/08/18 22:55 75 09/08/18 22:00 75 71 71 20 09/08/18 20:26 74 20 09/08/18 16:50 98.2 F 66 20 09/08/18 16:24 20 09/08/18 15:25 60 09/08/18 15:24 20 09/08/18 12:00 20 09/08/18 11:48 98.6 F 59 L 20 09/08/18 10:49 62 09/08/18 10:00 78 66 20 BP Pulse Ox 09/09/18 09:31 100 09/09/18 08:58 09/09/18 08:29 128/79 91 09/09/18 06:29 126/76 09/09/18 03:58 09/09/18 03:56 122/65 97 09/09/18 03:04 99 09/09/18 00:00 09/08/18 22:55 111/70 09/08/18 22:00 98 09/08/18 20:26 94/65 97 09/08/18 16:50 106/70 97 09/08/18 16:24 09/08/18 15:25 104/62 09/08/18 15:24 09/08/18 12:00 09/08/18 11:48 104/74 98 09/08/18 10:49 120/72 09/08/18 10:00 99 - Physical Examination General: Appears Well HEENT: Positive: PERRL Neck: Positive: trachea midline Cardiac: Positive: Reg Rate and Rhythm Lungs: Positive: Decreased Breath Sounds Neuro: Positive: Grossly Intact Abdomen: Positive: Soft Extremities: Absent: edema - Labs and Meds CBC 09/09/18 Range/Units 06:02 WBC 3.6 L (4.5-11.0) K/mm3 RBC 3.49 L (3.65-5.03) M/mm3 Hgb 12.1 (10.1-14.3) gm/dl Hct 36.5 (30.3-42.9) % Plt Count 192 (140-440) K/mm3 Lymph # 0.2 L (1.2-5.4) K/mm3 [place] # 0.4 (0.0-0.8) K/mm3 Eos # 0.0 (0.0-0.4) K/mm3 Baso # 0.0 (0.0-0.1) K/mm3 Comprehensive Metabolic Panel 09/09/18 Range/Units 06:02 Sodium 137 (137-145) mmol/L Potassium 3.7 (3.6-5.0) mmol/L Chloride 99.5 (98-107) mmol/L Carbon Dioxide 27 (22-30) mmol/L BUN 23 H (7-17) mg/dL Creatinine 1.1 (0.7-1.2) mg/dL Glucose 101 H (65-100) mg/dL Calcium 8.0 L (8.4-10.2) mg/dL
[2018-09-09] MEDS: IMDUR PO SCH (10:00)
[2018-09-09] MEDS: WELLBUTRIN SR PO SCH ×3 (10:00→21:45)
[2018-09-09] MEDS: BABY ASPIRIN PO SCH (10:00)
[2018-09-09] MEDS: COREG PO SCH ×2 (10:00→21:43)
[2018-09-09] MEDS: BUSPAR PO SCH ×2 (10:00→21:43)
[2018-09-09] MEDS: ELIQUIS PO SCH ×2 (10:00→21:43)
[2018-09-09] MEDS: ZAROXOLYN PO SCH (10:00)
[2018-09-09] MEDS: ZOLOFT PO SCH (10:00)
[2018-09-09] MEDS: SODIUM CHLORIDE FLUSH SYRINGE 10 ML IV SCH ×2 (10:00→22:43)
[2018-09-09] MEDS: ALDACTONE PO SCH (10:02)
[2018-09-09] MEDS: ZOFRAN IV PRN ×2 (15:09→23:14)
--- NOTE | 2018-09-09 15:47 | Progress Note ---
Assessment and Plan /Acute exacerbation of systolic congestive heart failure Ejection fraction 10-15%, and failure medication, input output monitoring Fluid restriction, low sodium diet, cardiology following /Chest pain; rule out acute coronary syndrome, patient has extensive cardiac history Serial cardiac enzymes and EKG, echocardiogram, cardiology evaluation noted No Plans of ischemia workup at this point, the current management /History of coronary artery disease, status post CABG, status post PCI Continue current cardiac medications, supportive care /History of depression; continue antidepression medications Denies suicidal thoughts or ideation, consider psych evaluation if needed /A. FIB PAROXYSMAL; rate controlled, continue beta blockers Anticoagulation with Eliquis /History of COPD; well compensated, oxygen nebulizers and supportive care /DVT prophylaxis; on Eliquis /Full code; Plan of care reviewed with the patient and her nurse Disposition; follow cardiology recommendations discharge in 1-2 days if stable, consulted PT Brief History 67-year-old morbidly obese female patient with significant history of coronary artery disease status post CABG status post PCI in March 2018, ischemic cardiomyopathy with ejection fraction of 10- 15% with chest pain and shortness of breath, paroxysmal nocturnal dyspnea and orthopnea., Cardiology evaluated medications optimized Hospitalist Physical General appearance: Present: no acute distress, well-nourished, obese (morbidly obese) - EENT Eyes: Present: PERRL, EOM intact - Neck Neck: Present: supple, normal ROM - Respiratory Respiratory effort: normal Respiratory: bilateral: diminished, rales, negative: rhonchi, wheezing - Cardiovascular Rhythm: regular Heart Sounds: Present: S1 & S2 - Extremities Extremities: no ischemia, No edema - Abdominal General gastrointestinal: soft, non-tender, non-distended, normal bowel sounds - Integumentary Integumentary: Present: clear, warm - Psychiatric Psychiatric: appropriate mood/affect, cooperative - Neurologic Neurologic: CNII-XII intact, moves all extremities Subjective Date of service: 09/09/18 Interval history: Patient seen and examined. Medical records and medication list reviewed. No acute event overnight noted by the RN. Patient continued to complain of difficulty breathing. Patient is tolerating diet. Discussed plan of care at bedside with patient. Requested PT eval Objective - Constitutional Vitals: Vital Signs - 12hr 09/09/18 09/09/18 09/09/18 03:56 03:58 06:29 Temperature 97.9 F Pulse Rate 70 69 Pulse Rate [ From Monitor] Pulse Rate [ Left Radial] Pulse Rate [ Right Radial] Respiratory 20 Rate Blood Pressure 122/65 126/76 O2 Sat by Pulse 97 Oximetry 09/09/18 09/09/18 09/09/18 08:00 08:29 08:58 Temperature 97.9 F Pulse Rate 80 69 Pulse Rate [ From Monitor] Pulse Rate [ Left Radial] Pulse Rate [ Right Radial] Respiratory 18 24 Rate Blood Pressure 128/79 O2 Sat by Pulse 91 Oximetry 09/09/18 09/09/18 09/09/18 09:31 10:00 10:02 Temperature Pulse Rate 95 H 95 H Pulse Rate [ 95 H From Monitor] Pulse Rate [ 95 H Left Radial] Pulse Rate [ 95 H Right Radial] Respiratory 24 Rate Blood Pressure 128/79 128/79 O2 Sat by Pulse 100 100 Oximetry 09/09/18 14:00 Temperature Pulse Rate 95 H Pulse Rate [ From Monitor] Pulse Rate [ Left Radial] Pulse Rate [ Right Radial] Respiratory Rate Blood Pressure 128/79 O2 Sat by Pulse Oximetry - Labs CBC & Chem 7: 09/09/18 06:02 09/09/18 06:02 Labs: Abnormal lab results 09/09/18 09/09/18 Range/Units 06:02 06:02 WBC 3.6 L (4.5-11.0) K/mm3 RBC 3.49 L (3.65-5.03) M/mm3 MCV 105 H (79-97) fl MCH 35 H (28-32) pg Lymph % (Auto) 6.6 L (13.4-35.0) % [place] % (Auto) 12.3 H (0.0-7.3) % Lymph # 0.2 L (1.2-5.4) K/mm3 Seg Neutrophils % 79.8 H (40.0-70.0) % BUN 23 H (7-17) mg/dL Glucose 101 H (65-100) mg/dL Calcium 8.0 L (8.4-10.2) mg/dL
--- NOTE | 2018-09-09 21:14 | XRay Report ---
PROCEDURE: XR SHOULDER 2+V LT HISTORY: pain FINDINGS: AP views of the left shoulder were acquired in internal and external rotation as well as sc apular Y view. These images demonstrate no fracture or malalignment of the left shoulder. The glenohumeral and acrom ioclavicular joints are normally located. IMPRESSION: No fracture or malalignment of the left shoulder This document is electronically signed by Roberto Carlos Michelle MD., Sep 09 2018 09:12:28 PM ET
[2018-09-10] MEDS: APRESOLINE PO SCH ×2 (05:55→14:27)
[2018-09-10] MEDS: ZOFRAN IV PRN ×2 (05:55→14:27)
[2018-09-10] MEDS: LASIX IV SCH (05:55)
--- NOTE | 2018-09-10 08:59 | Progress Note ---
Assessment and Plan Chest pain, musculoskeletal Chronic systolic heart failure Hx of LUE DVT Hx of coronary artery disease cardiac cath 03/2018 revealed patent SVG to LAD, patent SVG to OM, patent SVG to PDA and patent diagonal stent, LVEF 10-15%. Hx of Ischemic cardiomyopathy ejection fraction 10-15% by echo this admission Presence of single chamber cardiac defibrillator underlying paroxysmal atrial fibrillation previously treated with eliquis for oral anticoagulation therapy. Tobacco abuse Recommend: Sodium/Fluid restriction. Continue medical therapy for chronic systolic heart failure, coronary artery disease and paroxysmal Afib. Otherwise, conservative cardiac management. Subjective Date of service: 09/10/18 Interval history: Patient is resting in bed comfortably. No cardiac events overnight. Objective Vital Signs Temp Pulse Pulse Pulse Pulse Resp BP 09/10/18 08:24 97.7 F 73 18 131/74 09/10/18 05:55 71 127/71 09/10/18 05:42 09/10/18 04:23 97.9 F 20 127/71 09/10/18 00:00 71 09/09/18 23:39 97.7 F 71 22 126/80 09/09/18 22:43 78 125/80 09/09/18 22:00 72 78 78 20 09/09/18 21:43 72 118/89 09/09/18 19:49 72 22 118/87 09/09/18 16:32 72 128/72 09/09/18 16:00 75 09/09/18 14:00 95 H 128/79 09/09/18 10:02 95 H 128/79 09/09/18 10:00 95 H 95 H 95 H 95 H 24 128/79 09/09/18 09:31 09/09/18 08:58 24 Pulse Ox 09/10/18 08:24 99 09/10/18 05:55 09/10/18 05:42 96 09/10/18 04:23 100 09/10/18 00:00 09/09/18 23:39 98 09/09/18 22:43 09/09/18 22:00 100 09/09/18 21:43 09/09/18 19:49 100 09/09/18 16:32 92 09/09/18 16:00 09/09/18 14:00 09/09/18 10:02 09/09/18 10:00 100 09/09/18 09:31 100 09/09/18 08:58 - Physical Examination General: No Apparent Distress Cardiac: Positive: Reg Rate and Rhythm Neuro: Positive: Grossly Intact Extremities: Absent: edema
--- NOTE | 2018-09-10 10:24 | Cat Scan Report ---
CT HEAD WITHOUT CONTRAST: HISTORY: Dizziness. TECHNIQUE: Sequential 2.5mm CT images. COMPARISON: none. FINDINGS: Cerebral Parenchyma: Mild diffuse cortical volume loss and mild chronic ischemic changes in the white matter are identified. A 2.9 x 0.8 cm chronic infarct is identified in the superior right basal ganglia extending to the right dawson radiata. Cerebellum: Within normal limits. Brainstem: Within normal limits. Ventricles: Normal. Sella: Normal. Extra-axial spaces: Normal. Basal Cisterns: Normal. Intracranial Hemorrhage: None. Midline Shift: None. Calvarium: Normal. Chronic left medial orbital fracture is noted. Sinuses: Normal. Mastoid Air Cells: There is partial opacification of both mastoid air cells with fluid. No fracture or bony destruction is identified. Visualized Orbits: Normal. IMPRESSION: No acute intracranial process. Chronic findings as described above. Mild bilateral mastoid air cell disease.
[2018-09-10] MEDS: ZAROXOLYN PO SCH (11:53)
[2018-09-10] MEDS: ELIQUIS PO SCH (11:53)
[2018-09-10] MEDS: IMDUR PO SCH (11:53)
[2018-09-10] MEDS: ALDACTONE PO SCH (11:54)
[2018-09-10] MEDS: ZOLOFT PO SCH (11:54)
[2018-09-10] MEDS: COREG PO SCH (11:55)
[2018-09-10] MEDS: BABY ASPIRIN PO SCH (11:55)
[2018-09-10] MEDS: WELLBUTRIN SR PO SCH (11:55)
[2018-09-10] MEDS: BUSPAR PO SCH (11:55)
[2018-09-10] MEDS: SODIUM CHLORIDE FLUSH SYRINGE 10 ML IV SCH (11:56)
[2018-09-10] MEDS ORDERED: PERCOCET 5/325 PO PRN (13:00)
--- NOTE | 2018-09-10 13:13 | Discharge Summary ---
Providers - Providers Date of Admission: 09/06/18 23:31 Date of discharge: 09/10/18 Attending physician: ARMAND AMBROCIO 09/06/18 23:59 Consult to Physician [CONS] Routine Comment: Consulting Provider: JUWAN HOPE Physician Instructions: Reason For Exam: chf/cp 09/09/18 13:31 Physical Therapy Evaluation and Treat [CONS] Routine Comment: Reason For Exam: placement Primary care physician: [employer] Hospitalization Reason for admission: shortness of breath Condition: Fair Pertinent studies: Chest x-ray Left shoulder x-ray Head CT 2-D echo Hospital course: Brief History 67-year-old morbidly obese female patient with significant history of coronary artery disease status post CABG status post PCI in March 2018, ischemic cardiomyopathy with ejection fraction of 10- 15% with chest pain and shortness of breath, paroxysmal nocturnal dyspnea and orthopnea., Patient was admitted for further examination and management, Cardiology evaluated, medications optimized. No further intervention recommended by cardiology beside medical management. Patient was then discharged home with hospice in stable condition. Discharge diagnosis: /Acute exacerbation of systolic congestive heart failure Ejection fraction 10-15%, placed on diuretics, monitored input output Placed on Fluid restriction, low sodium diet, cardiology was following /Chest pain; rule out acute coronary syndrome, patient has extensive cardiac history Serial cardiac enzymes and EKG, echocardiogram, cardiology evaluation noted No Plans of ischemia workup at this point, the current management /History of coronary artery disease, status post CABG, status post PCI Continue current cardiac medications, supportive care /History of depression; continue antidepression medications Denies suicidal thoughts or ideation, consider psych evaluation if needed /A. FIB PAROXYSMAL; rate controlled, continue beta blockers Anticoagulation with Eliquis /History of COPD; well compensated, oxygen nebulizers and supportive care /DVT prophylaxis; on Eliquis /Full code; Plan of care reviewed with the patient and her nurse Disposition; home with hospice Hospitalist Physical General appearance: Present: no acute distress, well-nourished, obese (morbidly obese) - EENT Eyes: Present: PERRL, EOM intact - Neck Neck: Present: supple, normal ROM - Respiratory Respiratory effort: normal Respiratory: bilateral: diminished, rales, negative: rhonchi, wheezing - Cardiovascular Rhythm: regular Heart Sounds: Present: S1 & S2 - Extremities Extremities: no ischemia, No edema - Abdominal General gastrointestinal: soft, non-tender, non-distended, normal bowel sounds - Integumentary Integumentary: Present: clear, warm - Psychiatric Psychiatric: appropriate mood/affect, cooperative - Neurologic Neurologic: CNII-XII intact, moves all extremities Disposition: DC-50 TO HOSPICE (HOME) Time spent for discharge: 34 minutes Core Measure Documentation - Palliative Care Palliative Care/ Comfort Measures: Hospice Care - Core Measures Any of the following diagnoses?: heart failure - Heart Failure Discharge Requirements VERÓNICA/ARB for LVSD if EF <40%: Yes Beta kendall at discharge: Yes Exam - Constitutional Vitals: Temp Pulse Resp BP Pulse Ox 97.7 F 73 18 131/74 99 09/10/18 08:24 09/10/18 11:53 09/10/18 08:24 09/10/18 11:54 09/10/18 08:24 Plan Activity: fall precautions Weight Bearing Status: Non-Weight Bearing Diet: low fat, low salt Special Instructions: restrict fluid intake to (1.2 L per day), no heavy lifting Follow up with: PRIMARY MD TRACEY [Primary Care Provider] - 3-5 Days JUWAN HOPE MD [Staff Physician] - 7 Days Prescriptions: Carvedilol [Coreg] 3.125 mg PO BID #60 tablet
[2018-09-10 18:25] VITALS: BP 113/74
== END 2018-09-10 18:30 | disposition hospice, home (50) | DRG 302 ==
LOC: ED 21:43 → 4A 23:31
PROVIDERS: ADMIT Internal Medicine; ATTEND Internal Medicine
DX: I25.110 Atherosclerotic heart disease of native coronary artery with unstable angina pectoris (principal); I50.43 Acute on chronic combined systolic (congestive) and diastolic (congestive) heart failure; Z68.41 Body mass index [BMI] 40.0-44.9, adult; I42.0 Dilated cardiomyopathy; I48.0 Paroxysmal atrial fibrillation; I11.0 Hypertensive heart disease with heart failure; Z86.718 Personal history of other venous thrombosis and embolism; F32.9 Major depressive disorder, single episode, unspecified; I25.5 Ischemic cardiomyopathy; J44.9 Chronic obstructive pulmonary disease, unspecified; E66.01 Morbid (severe) obesity due to excess calories; Z95.1 Presence of aortocoronary bypass graft; Z86.73 Personal history of transient ischemic attack (TIA), and cerebral infarction without residual deficits; Z82.49 Family history of ischemic heart disease and other diseases of the circulatory system; Z95.810 Presence of automatic (implantable) cardiac defibrillator; Z90.710 Acquired absence of both cervix and uterus; Z88.0 Allergy status to penicillin; Z88.2 Allergy status to sulfonamides; Z79.82 Long term (current) use of aspirin; Z79.899 Other long term (current) drug therapy; Z95.5 Presence of coronary angioplasty implant and graft; I25.2 Old myocardial infarction
CPT/HCPCS: 36415; 70450; 71045; 80048; 82550; 82553; 82962; 83880; 84484; 85025; 85610; 93005; 93010; 93306; 94760; 99406; G0378; J1650; J1940; J2405; J3010

== ENCOUNTER 2018-09-20 08:13 | Inpatient (IN) | payer MEDICARE ==
[2018-09-20] MEDS ORDERED: MORPHINE IV ONE (08:49)
[2018-09-20] MEDS ORDERED: ZOFRAN IV ONE (08:49)
--- NOTE | 2018-09-20 09:20 | XRay Report ---
EXAM: XR CHEST 1V AP HISTORY: Difficulty breathing. TECHNIQUE: Portable CXR dated September 20, 2018 at 8:53 AM. COMPARISON: CXR dated June 25, 2018. FINDINGS: Status post sternotomy, presumably for CABG. There is a left anterior chest wall subclavian cardiac p acer with intact pacer wires to the right atrium and right ventricle. There is evidence for severe cardiomegaly (occult pericardial effusion not excluded). The pulmonary v ascularity and interstitial markings are diffusely prominent, consistent with CHF or volume overload in the appropriate clinical setting. There are hazy opacities in the lung bases which may represent bibasilar atelectasis and/or small ple ural effusions, left greater than right. There is no pneumothorax seen. The visualized bony structure s are within normal limits. IMPRESSION: 1. Findings consistent with mild CHF or volume overload in the appropriate clinical setting. Recomme nd clinical correlation and appropriate followup evaluation as clinically warranted to ensure complet e clearance. 2. Hazy opacities in the lung bases which may represent bibasilar atelectasis and/or small pleural e ffusions, left greater than right. This document is electronically signed by Emely Swenson MD., September 20 2018 09:18:32 AM ET
[2018-09-20 09:44] LABS: Hematocrit 34.8 % (30.3-42.9); Hemoglobin 11.5 gm/dl (10.1-14.3); Mean Corpuscular HGB Conc 33 % (30-34); Mean Corpuscular Volume 105 fl (79-97); Platelet Count 172 K/mm3 (140-440); Red Blood Count 3.32 M/mm3 (3.65-5.03); Red Cell Distribution Width 15.4 % (13.2-15.2)
[2018-09-20 09:45] LABS: Basophils % (Auto) 0.3 % (0.0-1.8); Eosinophils % (Auto) 0.7 % (0.0-4.3); Lymphocytes # (Auto) 0.2 K/mm3 (1.2-5.4); Lymphocytes % (Auto) 5.3 % (13.4-35.0); Monocytes # (Auto) 0.5 K/mm3 (0.0-0.8)
[2018-09-20 10:00] LABS: INR 1.03 (0.87-1.13)
[2018-09-20 10:01] LABS: Partial Thromboplastin Time 28.7 Sec. (24.2-36.6)
--- NOTE | 2018-09-20 10:46 | Emergency Department Report ---
ED Chest Pain HPI - General Chief Complaint: Dyspnea/Respdistress Stated Complaint: SPRING Time Seen by Provider: 09/20/18 08:43 Source: patient, EMS Mode of arrival: Stretcher Limitations: Physical Limitation - History of Present Illness Initial Comments: 67-year-old female with history of CABG states she awoke at about 4 in the morning with chest pain. She is home O2 dependent. She is status post myocardial infarction and states that she has a history of a blood clot in her upper arm and perhaps neck. She has recently been admitted to this facility August 2018. Per her discharge summary: 67-year-old morbidly obese female patient with significant history of coronary artery disease status post CABG status post PCI in March 2018, ischemic cardiomyopathy with ejection fraction of 10- 15% with chest pain and shortness of breath, paroxysmal nocturnal dyspnea and orthopnea., Patient was admitted for further examination and management, Cardiology evaluated, medications optimized. No further intervention recommended by cardiology beside medical management. Patient was then discharged home with hospice in stable condition. Discharge diagnosis: /Acute exacerbation of systolic congestive heart failure Ejection fraction 10-15%, placed on diuretics, monitored input output Placed on Fluid restriction, low sodium diet, cardiology was following /Chest pain; rule out acute coronary syndrome, patient has extensive cardiac history Serial cardiac enzymes and EKG, echocardiogram, cardiology evaluation noted No Plans of ischemia workup at this point, the current management /History of coronary artery disease, status post CABG, status post PCI Continue current cardiac medications, supportive care /History of depression; continue antidepression medications Denies suicidal thoughts or ideation, consider psych evaluation if needed /A. FIB PAROXYSMAL; rate controlled, continue beta blockers Anticoagulation with Eliquis /History of COPD; well compensated, oxygen nebulizers and supportive care /DVT prophylaxis; on Eliquis She complains of difficulty in breathing. She denies hemoptysis. She denies leg pain but has had leg swelling. She is a poor historian. I do not know if she is compliant with her medication nor if she has a primary care physician. She cannot identify a trim setter. MD Complaint: chest pain -: Gradual, hour(s) Onset: during rest Pain Location: substernal Pain Radiation: none Severity: mild, moderate Severity scale (0 -10): 4 Quality: heaviness Consistency: now resolved re: dyspnea Other Symptoms: denies: cough, fever, syncope Treatments Prior to Arrival: none Aspirin use within the Past 7 Days: (1) Yes - Related Data On Oral Contraceptives: No Home Medications Medication Instructions Recorded Confirmed Last Taken Aspirin [Adult Aspirin] 81 mg PO DAILY 02/24/18 09/20/18 05/09/18 Spironolactone [Aldactone] 25 mg PO QDAY 02/24/18 09/20/18 05/09/18 buPROPion SR [Wellbutrin SR] 150 mg PO BID 02/24/18 09/20/18 05/09/18 Cyclobenzaprine [Flexeril 10 MG 10 mg PO TID PRN 05/10/18 09/20/18 05/09/18 TAB] Diphenhydramine HCl [Allergy 25 mg PO DAILY 05/10/18 09/20/18 05/09/18 Relief] ISOSORBIDE MONOnitrate [Imdur ER] 60 mg PO QDAY 05/10/18 09/20/18 05/09/18 Sertraline HCl [Zoloft] 50 mg PO DAILY 05/10/18 09/20/18 05/09/18 hydrALAZINE [Apresoline TAB] 25 mg PO Q8HR 05/10/18 09/20/18 05/09/18 Previous Rx's Medication Instructions Recorded Last Taken Type Albuterol Sulfate [Ventolin HFA] 1 puff IH Q6H PRN 30 Days 03/03/18 05/09/18 Rx [email or web address] Apixaban [Eliquis] 5 mg PO Q12HR #60 tablet 07/02/18 Unknown Rx Furosemide [Lasix TAB] 80 mg PO DAILY #30 tablet 07/02/18 Unknown Rx Pantoprazole [Protonix TAB] 40 mg PO QDAY #30 tablet 07/02/18 Unknown Rx Polyethylene Glycol 3350 [Miralax 17 gm PO BID PRN #30 powd.pack 07/02/18 Unknown Rx 3350] metOLazone [Zaroxolyn] 5 mg PO QDAY #30 tablet 07/02/18 Unknown Rx Carvedilol [Coreg] 3.125 mg PO BID #60 tablet 09/10/18 Unknown Rx Allergies Allergy/AdvReac Type Severity Reaction Status Date / Time lisinopril Allergy Anaphylaxis Verified 02/24/18 09:15 Penicillins Allergy Seizure Verified 02/24/18 09:15 Sulfa (Sulfonamide AdvReac Hives Verified 02/24/18 09:15 Antibiotics) Heart Score - HEART Score History: Moderately suspicious EKG: Non-specific Age: > 65 Risk factors: > 3 risk factors or hx of atherosclerotic disease Troponin: < normal limit HEART Score: 6 - Critical Actions Critical Actions: 4-6 pts:12-16.6% risk of adverse cardiac event. Should be admitted ED Review of Systems ROS: Stated complaint: SPRING Other details as noted in HPI Constitutional: denies: chills, fever Eyes: denies: eye pain, eye discharge, vision change ENT: denies: ear pain, throat pain Respiratory: shortness of breath. denies: cough, wheezing Cardiovascular: chest pain, edema. denies: palpitations Endocrine: no symptoms reported Gastrointestinal: denies: abdominal pain, nausea, diarrhea Genitourinary: denies: urgency, dysuria, discharge Musculoskeletal: denies: back pain, joint swelling, arthralgia Skin: denies: rash, lesions Neurological: denies: headache, weakness, paresthesias Psychiatric: denies: anxiety, depression Hematological/Lymphatic: denies: easy bleeding, easy bruising ED Past Medical Hx - Past Medical History Hx Hypertension: Yes Hx CVA: Yes (2016) Hx Heart Attack/AMI: Yes (2008) Hx Congestive Heart Failure: Yes Hx Diabetes: No Hx Asthma: No Hx COPD: Yes (3 L nasal cannula) - Surgical History Hx Open Heart Surgery: Yes (CABG 3v) Hx Pacemaker: Yes (AICD) Additional Surgical History: Bypass in 2018 - Social History Smoking Status: Current Every Day Smoker Substance Use Type: None - Medications Home Medications: Home Medications Medication Instructions Recorded Confirmed Last Taken Type Aspirin [Adult Aspirin] 81 mg PO DAILY 02/24/18 09/20/18 05/09/18 History Spironolactone [Aldactone] 25 mg PO QDAY 02/24/18 09/20/18 05/09/18 History buPROPion SR [Wellbutrin SR] 150 mg PO BID 02/24/18 09/20/18 05/09/18 History Albuterol Sulfate [Ventolin HFA] 1 puff IH Q6H PRN 30 Days 03/03/18 09/20/18 05/09/18 Rx [email or web address] Cyclobenzaprine [Flexeril 10 MG 10 mg PO TID PRN 05/10/18 09/20/18 05/09/18 History TAB] Diphenhydramine HCl [Allergy 25 mg PO DAILY 05/10/18 09/20/18 05/09/18 History Relief] ISOSORBIDE MONOnitrate [Imdur ER] 60 mg PO QDAY 05/10/18 09/20/18 05/09/18 History Sertraline HCl [Zoloft] 50 mg PO DAILY 05/10/18 09/20/18 05/09/18 History hydrALAZINE [Apresoline TAB] 25 mg PO Q8HR 05/10/18 09/20/18 05/09/18 History Apixaban [Eliquis] 5 mg PO Q12HR #60 tablet 07/02/18 09/20/18 Unknown Rx Furosemide [Lasix TAB] 80 mg PO DAILY #30 tablet 07/02/18 09/20/18 Unknown Rx Pantoprazole [Protonix TAB] 40 mg PO QDAY #30 tablet 07/02/18 09/20/18 Unknown Rx Polyethylene Glycol 3350 [Miralax 17 gm PO BID PRN #30 powd.pack 07/02/18 09/20/18 Unknown Rx 3350] metOLazone [Zaroxolyn] 5 mg PO QDAY #30 tablet 07/02/18 09/20/18 Unknown Rx Carvedilol [Coreg] 3.125 mg PO BID #60 tablet 09/10/18 09/20/18 Unknown Rx ED Physical Exam - General Limitations: Physical Limitation General appearance: alert, in no apparent distress - Head Head exam: Present: atraumatic, normocephalic - Eye Eye exam: Present: normal appearance. Absent: scleral icterus - ENT ENT exam: Present: mucous membranes moist - Neck Neck exam: Present: normal inspection. Absent: tenderness, meningismus - Respiratory Respiratory exam: Present: decreased breath sounds. Absent: respiratory distress, accessory muscle use - Cardiovascular Cardiovascular Exam: Present: regular rate, normal rhythm, S4. Absent: systolic murmur, diastolic murmur, rubs, gallop - GI/Abdominal GI/Abdominal exam: Present: soft, normal bowel sounds. Absent: distended, tenderness, guarding, rebound - Extremities Exam Extremities exam: Present: pedal edema, other (bilateral leg edema) - Back Exam Back exam: Present: normal inspection - Neurological Exam Neurological exam: Present: alert, oriented X3, motor sensory deficit (old heavy Hsu is no acute focal deficit) - Psychiatric Psychiatric exam: Present: normal affect, anxious - Skin Skin exam: Present: warm, dry, intact, normal color. Absent: rash ED Course Vital Signs 09/20/18 09/20/18 08:22 08:30 Temperature 98.2 F Pulse Rate 71 74 Respiratory 18 Rate Blood Pressure 117/71 108/72 [Right] O2 Sat by Pulse 100 Oximetry - Reevaluation(s) Reevaluation #1: Given Lasix. Substantially elevated d-dimer. Awaiting VQ scan result. Patient should be on Eliquis but coags are normal and compliance is uncertain. Patient admitted by Dr. Olson to the hospitalist service for further care and evaluation. 09/20/18 13:13 09/20/18 13:15 ROGER score - Roger Score Age > 65: (1) Yes Aspirin use within the Past 7 Days: (1) Yes 3 or more CAD Risk Factors: (1) Yes 2 or more Angina events in past 24 hrs: (1) Yes Known CAD with more than 50% Stenosis: (1) Yes Elevated Cardiac Markers: (0) No ST Deviation Greater than 0.5mm: (0) No ROGER Score: 5 ED Medical Decision Making - Lab Data Result diagrams: 09/20/18 09:24 09/20/18 09:24 Laboratory Results - last 24 hr 09/20/18 09/20/18 09:24 09:24 WBC 4.0 L RBC 3.32 L Hgb 11.5 Hct 34.8 MCV 105 H MCH 35 H MCHC 33 RDW 15.4 H Plt Count 172 Lymph % (Auto) 5.3 L Citrus % (Auto) 12.0 H Eos % (Auto) 0.7 Baso % (Auto) 0.3 Lymph # 0.2 L [place]rus # 0.5 Eos # 0.0 Baso # 0.0 Seg Neutrophils % 81.7 H Seg Neutrophils # 3.3 PT 14.1 INR 1.03 APTT 28.7 D-Dimer 1953.89 H Laboratory Results - last 24 hr 09/20/18 09/20/18 09/20/18 09:24 09:24 09:24 WBC 4.0 L RBC 3.32 L Hgb 11.5 Hct 34.8 MCV 105 H MCH 35 H MCHC 33 RDW 15.4 H Plt Count 172 Lymph % (Auto) 5.3 L [place] % (Auto) 12.0 H Eos % (Auto) 0.7 Baso % (Auto) 0.3 Lymph # 0.2 L [place] # 0.5 Eos # 0.0 Baso # 0.0 Seg Neutrophils % 81.7 H Seg Neutrophils # 3.3 PT 14.1 INR 1.03 APTT 28.7 D-Dimer 1953.89 H Sodium 138 Potassium 4.1 Chloride 98.0 Carbon Dioxide 29 Anion Gap 15 BUN 20 H Creatinine 0.6 L Estimated GFR > 60 BUN/Creatinine Ratio 33 Glucose 101 H Calcium 8.1 L Magnesium 1.90 Total Bilirubin 0.20 Direct Bilirubin < 0.2 AST 35 ALT 17 Alkaline Phosphatase 88 Total Creatine Kinase 230 H CK-MB (CK-2) 3.4 CK-MB (CK-2) Rel Index 1.4 Troponin T 0.014 NT-Pro-B Natriuret Pep 8916 H Total Protein 4.6 L Albumin 2.1 L Albumin/Globulin Ratio 0.8 - EKG Data -: EKG Interpreted by Me EKG shows normal: sinus rhythm (likely sinus rhythm) Rate: normal - EKG Data When compared to previous EKG there are: no significant change Interpretation: other (low-voltage poor R-wave progression, PVC, intraventricular conduction delay) - Radiology Data Radiology results: image reviewed Chest x-ray shows AICD, severe cardiomegaly with some decompensation. Critical care attestation.: If time is entered above; I have spent that time in minutes in the direct care of this critically ill patient, excluding procedure time. ED Disposition Clinical Impression: CHF with cardiomyopathy, Elevated d-dimer Chest pain Qualifiers: Chest pain type: unspecified Qualified Code(s): R07.9 - Chest pain, unspecified Disposition: DC-09 OP ADMIT IP TO THIS HOSP Is pt being admited?: Yes Does the pt Need Aspirin: Yes Condition: Stable Instructions: Chest Pain (ED) Referrals: DAVID OMALLEY MD [Primary Care Provider] - 3-5 Days Time of Disposition: 13:16
[2018-09-20 12:01] LABS: Creatine Kinase MB 3.4 ng/mL (0.0-4.0)
[2018-09-20 12:14] LABS: Alanine Aminotransferase 17 units/L (7-56); Albumin 2.1 g/dL (3.9-5); BUN/Creatinine Ratio 33; Bilirubin,Direct < 0.2 mg/dL (0-0.2); Blood Urea Nitrogen 20 mg/dL (7-17); Calcium 8.1 mg/dL (8.4-10.2); Hemolysis Index 17
[2018-09-20] MEDS ORDERED: LASIX IV ONE (13:12)
[2018-09-20] MEDS ORDERED: ASPIRIN PO ONE (13:16)
[2018-09-20] MEDS ORDERED: ASPIRIN ONE (13:45)
[2018-09-20] MEDS ORDERED: LASIX ONE (13:45)
--- NOTE | 2018-09-20 16:31 | Nuclear Medicine Report ---
PROCEDURE: NM LUNG SCAN PERF/VENT TECHNIQUE: Perfusion imaging of the lungs was performed in multiple planar projections. Ventilation images were obtained in the posterior projection during inhalation, equilibrium, and washout phases. Correlation with a chest x-ray dated 09/20/2018 was performed. DOSE: 12.0 millicuries Xe-133 gas; 5.0 millicuries 99m Tc MAA given IV. Injection site: RIGHT antecub ital fossa. HISTORY: CP elevated dimer COMPARISONS: CT chest 03/25/2018 . FINDINGS: On perfusion imaging, there are nonsegmental vertical perfusion defects posteriorly in each lung base invaginating into the major fissures superiorly. These findings correspond to bilateral free-flowing pleural effusions. There are also defects in each pulmonary hilar region consistent with the promine nt pulmonary vasculature noted bilaterally on prior CXR. Otherwise, the tracer distribution on perfusion imaging is homogeneous throughout. No unmatched segme ntal or subsegmental perfusion defects are identified to suggest the presence of pulmonary embolism. There is marked cardiomegaly again noted. The ventilation study is also homogeneous. There is gas trapping is present in the lower half of both lung zones. IMPRESSION: Low probability V/Q scan. Perfusion defects correspond to marked cardiomegaly, bilateral pleural effu sions, and pulmonary vascular prominence bilaterally This document is electronically signed by Chastity Moyer MD., September 20 2018 04:29:51 PM ET
--- NOTE | 2018-09-20 21:26 | History and Physical Report ---
History of Present Illness Date of examination: 09/20/18 Date of admission: 09/20/18 13:16 Chief complaint: Chest pain since AM History of present illness: 67-year-old female with history of HTN,CAD and s/p CABG X3 states woke at about 4 in the morning with chest pain. She is home O2 dependent. She is status post myocardial infarction and states that she has a history of a blood clot in her upper arm and perhaps neck. She has recently been admitted to this facility August 2018. Chest pain non radiating.No diaphoresis or sob.Pain is 5/10.No exacerbating or relieving factor. Discharge summary from Aug 31 2018 67-year-old morbidly obese female patient with significant history of coronary artery disease status post CABG status post PCI in March 2018, ischemic cardiomyopathy with ejection fraction of 10- 15% with chest pain and shortness of breath, paroxysmal nocturnal dyspnea and orthopnea., Patient was admitted for further examination and management, Cardiology evaluated, medications optimized. No further intervention recommended by cardiology beside medical management. Patient was then discharged home with hospice in stable condition. Discharge diagnosis: /Acute exacerbation of systolic congestive heart failure Ejection fraction 10-15%, placed on diuretics, monitored input output Placed on Fluid restriction, low sodium diet, cardiology was following /Chest pain; rule out acute coronary syndrome, patient has extensive cardiac history Serial cardiac enzymes and EKG, echocardiogram, cardiology evaluation noted No Plans of ischemia workup at this point, the current management /History of coronary artery disease, status post CABG, status post PCI Continue current cardiac medications, supportive care /History of depression; continue antidepression medications Denies suicidal thoughts or ideation, consider psych evaluation if needed /A. FIB PAROXYSMAL; rate controlled, continue beta blockers Anticoagulation with Eliquis /History of COPD; well compensated, oxygen nebulizers and supportive care /DVT prophylaxis; on Eliquis Past Medical History Hypertension: Yes CVA: Yes (2016) Heart Attack/AMI: Yes (2008) Congestive Heart Failure: Yes COPD: Yes (3 L nasal cannula) Surgical History Hx Open Heart Surgery: Yes (CABG 3v) Hx Pacemaker: Yes (AICD) Additional Surgical History: Bypass in 2018 Social History Smoking Status: Current Every Day Smoker Substance Use Type: None Family History Htn Review of Systems ROS: Stated complaint: SPRING Other details as noted in HPI Constitutional: denies: chills, fever Eyes: denies: eye pain, eye discharge, vision change ENT: denies: ear pain, throat pain Respiratory: shortness of breath. denies: cough, wheezing Cardiovascular: chest pain, edema. denies: palpitations Endocrine: no symptoms reported Gastrointestinal: denies: abdominal pain, nausea, diarrhea Genitourinary: denies: urgency, dysuria, discharge Musculoskeletal: denies: back pain, joint swelling, arthralgia Skin: denies: rash, lesions Neurological: denies: headache, weakness, paresthesias Psychiatric: denies: anxiety, depression Hematological/Lymphatic: denies: easy bleeding, easy bruising Medications and Allergies Allergies Allergy/AdvReac Type Severity Reaction Status Date / Time lisinopril Allergy Anaphylaxis Verified 02/24/18 09:15 Penicillins Allergy Seizure Verified 02/24/18 09:15 Sulfa (Sulfonamide AdvReac Hives Verified 02/24/18 09:15 Antibiotics) Home Medications Medication Instructions Recorded Confirmed Last Taken Type Aspirin [Adult Aspirin] 81 mg PO DAILY 02/24/18 09/20/18 05/09/18 History Spironolactone [Aldactone] 25 mg PO QDAY 02/24/18 09/20/18 05/09/18 History buPROPion SR [Wellbutrin SR] 150 mg PO BID 02/24/18 09/20/18 05/09/18 History Albuterol Sulfate [Ventolin HFA] 1 puff IH Q6H PRN 30 Days 03/03/18 09/20/18 05/09/18 Rx hfa.[email or web address] Cyclobenzaprine [Flexeril 10 MG 10 mg PO TID PRN 05/10/18 09/20/18 05/09/18 History TAB] Diphenhydramine HCl [Allergy 25 mg PO DAILY 05/10/18 09/20/18 05/09/18 History Relief] ISOSORBIDE MONOnitrate [Imdur ER] 60 mg PO QDAY 05/10/18 09/20/18 05/09/18 History Sertraline HCl [Zoloft] 50 mg PO DAILY 05/10/18 09/20/18 05/09/18 History hydrALAZINE [Apresoline TAB] 25 mg PO Q8HR 05/10/18 09/20/18 05/09/18 History Apixaban [Eliquis] 5 mg PO Q12HR #60 tablet 07/02/18 09/20/18 Unknown Rx Furosemide [Lasix TAB] 80 mg PO DAILY #30 tablet 07/02/18 09/20/18 Unknown Rx Pantoprazole [Protonix TAB] 40 mg PO QDAY #30 tablet 07/02/18 09/20/18 Unknown Rx Polyethylene Glycol 3350 [Miralax 17 gm PO BID PRN #30 powd.pack 07/02/18 09/20/18 Unknown Rx 3350] metOLazone [Zaroxolyn] 5 mg PO QDAY #30 tablet 07/02/18 09/20/18 Unknown Rx Carvedilol [Coreg] 3.125 mg PO BID #60 tablet 09/10/18 09/20/18 Unknown Rx Exam - Constitutional Vitals: Temp Pulse Resp BP Pulse Ox 98.6 F 76 20 108/57 100 09/20/18 16:41 09/20/18 16:41 09/20/18 16:41 09/20/18 16:41 09/20/18 16:41 General appearance: Present: mild distress, well-nourished - EENT Eyes: Present: PERRL ENT: hearing intact, clear oral mucosa - Neck Neck: Present: supple, normal ROM - Respiratory Respiratory effort: normal Respiratory: bilateral: CTA - Cardiovascular Heart rate: 68 Rhythm: irregularly irregular Heart Sounds: Present: S1 & S2. Absent: rub, click - Extremities Extremities: no ischemia, pulses symmetrical, No edema Peripheral Pulses: within normal limits - Abdominal General gastrointestinal: Present: soft, non-tender, non-distended, normal bowel sounds Female genitourinary: Present: normal - Rectal Rectal Exam: deferred - Integumentary Integumentary: Present: clear, warm, dry - Musculoskeletal Musculoskeletal: gait normal, strength equal bilaterally - Psychiatric Psychiatric: appropriate mood/affect, intact judgment & insight - Neurologic Neurologic: CNII-XII intact, moves all extremities - Allied Health Allied health notes reviewed: nursing, case management Results - Labs CBC & Chem 7: 09/20/18 09:24 09/20/18 09:24 Labs: Laboratory Last Values WBC 4.0 K/mm3 (4.5-11.0) L 09/20/18 09:24 RBC 3.32 M/mm3 (3.65-5.03) L 09/20/18 09:24 Hgb 11.5 gm/dl (10.1-14.3) 09/20/18 09:24 Hct 34.8 % (30.3-42.9) 09/20/18 09:24 MCV 105 fl (79-97) H 09/20/18 09:24 MCH 35 pg (28-32) H 09/20/18 09:24 MCHC 33 % (30-34) 09/20/18 09:24 RDW 15.4 % (13.2-15.2) H 09/20/18 09:24 Plt Count 172 K/mm3 (140-440) 09/20/18 09:24 Lymph % (Auto) 5.3 % (13.4-35.0) L 09/20/18 09:24 [place] % (Auto) 12.0 % (0.0-7.3) H 09/20/18 09:24 Eos % (Auto) 0.7 % (0.0-4.3) 09/20/18 09:24 Baso % (Auto) 0.3 % (0.0-1.8) 09/20/18 09:24 Lymph # 0.2 K/mm3 (1.2-5.4) L 09/20/18 09:24 [place] # 0.5 K/mm3 (0.0-0.8) 09/20/18 09:24 Eos # 0.0 K/mm3 (0.0-0.4) 09/20/18 09:24 Baso # 0.0 K/mm3 (0.0-0.1) 09/20/18 09:24 Seg Neutrophils % 81.7 % (40.0-70.0) H 09/20/18 09:24 Seg Neutrophils # 3.3 K/mm3 (1.8-7.7) 09/20/18 09:24 PT 14.1 Sec. (12.2-14.9) 09/20/18 09:24 INR 1.03 (0.87-1.13) 09/20/18 09:24 APTT 28.7 Sec. (24.2-36.6) 09/20/18 09:24 1953.89 ng/mlDDU (0-234) H 09/20/18 09:24 Sodium 138 mmol/L (137-145) 09/20/18 09:24 Potassium 4.1 mmol/L (3.6-5.0) 09/20/18 09:24 Chloride 98.0 mmol/L (98-107) 09/20/18 09:24 Carbon Dioxide 29 mmol/L (22-30) 09/20/18 09:24 15 mmol/L 09/20/18 09:24 BUN 20 mg/dL (7-17) H 09/20/18 09:24 0.6 mg/dL (0.7-1.2) L 09/20/18 09:24 Estimated GFR > 60 ml/min 09/20/18 09:24 33 % 09/20/18 09:24 Glucose 101 mg/dL (65-100) H 09/20/18 09:24 Calcium 8.1 mg/dL (8.4-10.2) L 09/20/18 09:24 Magnesium 1.90 mg/dL (1.7-2.3) 09/20/18 09:24 0.20 mg/dL (0.1-1.2) 09/20/18 09:24 < 0.2 mg/dL (0-0.2) 09/20/18 09:24 AST 35 units/L (5-40) 09/20/18 09:24 ALT 17 units/L (7-56) 09/20/18 09:24 88 units/L (35-129) 09/20/18 09:24 230 units/L (30-135) H 09/20/18 09:24 CK-MB (CK-2) 3.4 ng/mL (0.0-4.0) 09/20/18 09:24 CK-MB (CK-2) Rel Index 1.4 (0-4) 09/20/18 09:24 0.014 ng/mL (0.00-0.029) 09/20/18 09:24 NT-Pro-B Natriuret Pep 8916 pg/mL (0-900) H 09/20/18 09:24 4.6 g/dL (6.3-8.2) L 09/20/18 09:24 2.1 g/dL (3.9-5) L 09/20/18 09:24 0.8 % 09/20/18 09:24 Short CBC 09/20/18 Range/Units 09:24 WBC 4.0 L (4.5-11.0) K/mm3 Hgb 11.5 (10.1-14.3) gm/dl Hct 34.8 (30.3-42.9) % Plt Count 172 (140-440) K/mm3 BMP 09/20/18 09:24 Sodium 138 Potassium 4.1 Chloride 98.0 Carbon Dioxide 29 BUN 20 H Creatinine 0.6 L Glucose 101 H Calcium 8.1 L Cardiac Enzymes 09/20/18 Range/Units 09:24 Total Creatine Kinase 230 H (30-135) units/L CK-MB (CK-2) 3.4 (0.0-4.0) ng/mL Troponin T 0.014 (0.00-0.029) ng/mL Liver Function 09/20/18 Range/Units 09:24 Total Bilirubin 0.20 (0.1-1.2) mg/dL Direct Bilirubin < 0.2 (0-0.2) mg/dL AST 35 (5-40) units/L ALT 17 (7-56) units/L Alkaline Phosphatase 88 (35-129) units/L Albumin 2.1 L (3.9-5) g/dL - Imaging and Cardiology EKG: report reviewed (A fi\b 67 Low voltage) Chest x-ray: report reviewed Imaging and Cardiology: Vq scan IMPRESSION: Low probability V/Q scan. Perfusion defects correspond to marked cardiomegaly, bilateral pleural effusions, and pulmonary vascular prominence bilaterally This document is electronically signed by Chastity Moyer MD., September 20 2018 04:29:51 PM ET CXR IMPRESSION: 1. Findings consistent with mild CHF or volume overload in the appropriate clinical setting. Recommend clinical correlation and appropriate followup evaluation as clinically warranted to ensure complete clearance. 2. Hazy opacities in the lung bases which may represent bibasilar atelectasis and/or small pleural effusions, left greater than right. Assessment and Plan Advance Directives: Yes (Full code) VTE prophylaxis?: Chemical Plan of care discussed with patient/family: Yes - Patient Problems (1) Chest pain Current Visit: Yes Status: Acute Qualifiers: Chest pain type: unspecified Qualified Code(s): R07.9 - Chest pain, unspecified Plan to address problem: Patient had stress test on Feb 2018 WIll defer to cardiology reg stress test Serial Troponins Possible costochondritis (2) CHF with cardiomyopathy Current Visit: Yes Status: Chronic Plan to address problem: COnt Lasix (3) Coronary artery disease Current Visit: No Status: Chronic Qualifiers: Coronary Disease-Associated Artery/Lesion type: bypass graft [place] vs. transplanted heart: [place] heart Plan to address problem: COnt Eliquis and Isosorbide mononitrate (4) Hypertension Current Visit: No Status: Chronic Qualifiers: Hypertension type: essential hypertension Qualified Code(s): I10 - Essential (primary) hypertension Plan to address problem: Cont antihypertensives (5) Hyperlipidemia Current Visit: No Status: Chronic Qualifiers: Hyperlipidemia type: mixed hyperlipidemia Qualified Code(s): E78.2 - Mixed hyperlipidemia Plan to address problem: Cont statins (6) Constipation Current Visit: No Status: Chronic Qualifiers: Constipation type: unspecified constipation type Qualified Code(s): K59.00 - Constipation, unspecified Plan to address problem: On Mralax (7) COPD (chronic obstructive pulmonary disease) Current Visit: Yes Status: Chronic Qualifiers: COPD type: unspecified COPD Qualified Code(s): J44.9 - Chronic obstructive pulmonary disease, unspecified Plan to address problem: Cont Bronchodilators (8) DVT prophylaxis Current Visit: No Status: Acute Plan to address problem: On Eliquis and GI prophylaxis
[2018-09-20] MEDS ORDERED: PROAIR IH PRN (21:27)
[2018-09-20] MEDS ORDERED: SODIUM CHLORIDE FLUSH SYRINGE 10 ML IV PRN (21:31)
[2018-09-20] MEDS ORDERED: PROVENTIL IH PRN (21:47)
[2018-09-20] MEDS ORDERED: PEPCID PO SCH (22:00)
[2018-09-20] MEDS: ALDACTONE PO SCH (22:09)
[2018-09-20] MEDS: APRESOLINE PO SCH (22:10)
[2018-09-20] MEDS: IMDUR PO SCH (22:11)
[2018-09-20] MEDS: BENADRYL PO SCH (22:45)
[2018-09-20] MEDS: COREG PO SCH (22:45)
[2018-09-20] MEDS: ZOLOFT PO SCH (22:47)
[2018-09-20] MEDS: ELIQUIS PO SCH (22:47)
[2018-09-20] MEDS: WELLBUTRIN SR PO SCH (22:47)
[2018-09-20] MEDS: SODIUM CHLORIDE FLUSH SYRINGE 10 ML IV SCH (22:47)
[2018-09-20] MEDS: IBUPROFEN PO PRN (23:42)
[2018-09-21] MEDS: TYLENOL PO PRN (03:31)
[2018-09-21] MEDS: DILAUDID IV PRN ×2 (04:19→09:35)
[2018-09-21] MEDS: APRESOLINE PO SCH ×3 (06:20→22:00)
[2018-09-21] MEDS: IMDUR PO SCH (09:36)
[2018-09-21] MEDS: ELIQUIS PO SCH ×2 (09:36→22:55)
[2018-09-21] MEDS: BENADRYL PO SCH (09:36)
[2018-09-21] MEDS: ZAROXOLYN PO SCH (09:36)
[2018-09-21] MEDS: ZOLOFT PO SCH (09:36)
[2018-09-21] MEDS: WELLBUTRIN SR PO SCH ×2 (09:37→22:55)
[2018-09-21] MEDS: HALFPRIN EC PO SCH (09:37)
[2018-09-21] MEDS: PROTONIX PO SCH (09:37)
[2018-09-21] MEDS: ALDACTONE PO SCH (09:37)
[2018-09-21] MEDS: COREG PO SCH ×2 (09:37→22:00)
[2018-09-21] MEDS: SODIUM CHLORIDE FLUSH SYRINGE 10 ML IV SCH ×2 (09:38→22:55)
[2018-09-21 09:48] LABS: Basophils % (Auto) 0.8 % (0.0-1.8); Eosinophils % (Auto) 1.2 % (0.0-4.3); Hematocrit 36.4 % (30.3-42.9); Hemoglobin 11.9 gm/dl (10.1-14.3); Lymphocytes # (Auto) 0.2 K/mm3 (1.2-5.4); Lymphocytes % (Auto) 7.7 % (13.4-35.0); Mean Corpuscular HGB Conc 33 % (30-34); Mean Corpuscular Volume 106 fl (79-97); Monocytes # (Auto) 0.5 K/mm3 (0.0-0.8); Monocytes % (Auto) 15.8 % (0.0-7.3); Platelet Count 168 K/mm3 (140-440); Red Blood Count 3.44 M/mm3 (3.65-5.03); Red Cell Distribution Width 15.4 % (13.2-15.2)
[2018-09-21 10:30] LABS: Alanine Aminotransferase 16 units/L (7-56); Albumin 1.8 g/dL (3.9-5); BUN/Creatinine Ratio 21; Blood Urea Nitrogen 21 mg/dL (7-17); Calcium 8.1 mg/dL (8.4-10.2); Hemolysis Index 22
--- NOTE | 2018-09-21 13:29 | Consultation ---
History of Present Illness Consult date: 09/21/18 Consult reason: congestive heart failure History of present illness: The patient is a 67-year-old woman with morbid obesity, coronary artery disease and ischemic cardiomyopathy. She is status post prior coronary artery bypass, and has a cardiac defibrillator in situ. A cardiac catheterization done 6 months ago revealed 3 patent saphenous vein graft to the LAD, obtuse marginal and right posterior descending branch. Her left ventricular ejection fraction on an echocardiogram done just last month was 10-15%. Comorbidities include paroxysmal atrial fibrillation, currently anticoagulated with Eliquis. They have been multiple admissions for decompensated heart failure. The patient presents now with 3 days of increasing shortness of breath and chest x-ray shows cardiomegaly, interstitial edema consistent with decompensated heart failure. She is an unreliable historian, but there is a suggestion of poor compliance with both heart failure medications and prescribed dietary salt restrictions. EKG shows 2 sinus beats, followed by well-controlled atrial fibrillation. There is very low voltage QRS, unchanged from previous ECG tracings. Past History Past Medical History: CAD, heart failure Past Surgical History: CABG, Other (cardiac defibrillator) Medications and Allergies Allergies Allergy/AdvReac Type Severity Reaction Status Date / Time lisinopril Allergy Anaphylaxis Verified 02/24/18 09:15 Penicillins Allergy Seizure Verified 02/24/18 09:15 Sulfa (Sulfonamide AdvReac Hives Verified 02/24/18 09:15 Antibiotics) Home Medications Medication Instructions Recorded Confirmed Last Taken Type Aspirin [Adult Aspirin] 81 mg PO DAILY 02/24/18 09/20/18 05/09/18 History Spironolactone [Aldactone] 25 mg PO QDAY 02/24/18 09/20/18 05/09/18 History buPROPion SR [Wellbutrin SR] 150 mg PO BID 02/24/18 09/20/18 05/09/18 History Albuterol Sulfate [Ventolin HFA] 1 puff IH Q6H PRN 30 Days 03/03/18 09/20/18 05/09/18 Rx hfa.[email or web address] Cyclobenzaprine [Flexeril 10 MG 10 mg PO TID PRN 05/10/18 09/20/18 05/09/18 His tory TAB] Diphenhydramine HCl [Allergy 25 mg PO DAILY 05/10/18 09/20/18 05/09/18 History Relief] ISOSORBIDE MONOnitrate [Imdur ER] 60 mg PO QDAY 05/10/18 09/20/18 05/09/18 History Sertraline HCl [Zoloft] 50 mg PO DAILY 05/10/18 09/20/18 05/09/18 History hydrALAZINE [Apresoline TAB] 25 mg PO Q8HR 05/10/18 09/20/18 05/09/18 History Apixaban [Eliquis] 5 mg PO Q12HR #60 tablet 07/02/18 09/20/18 Unknown Rx Furosemide [Lasix TAB] 80 mg PO DAILY #30 tablet 07/02/18 09/20/18 Unknown Rx Pantoprazole [Protonix TAB] 40 mg PO QDAY #30 tablet 07/02/18 09/20/18 Unknown Rx Polyethylene Glycol 3350 [Miralax 17 gm PO BID PRN #30 powd.pack 07/02/18 09/20/18 Unknown Rx 3350] metOLazone [Zaroxolyn] 5 mg PO QDAY #30 tablet 07/02/18 09/20/18 Unknown Rx Carvedilol [Coreg] 3.125 mg PO BID #60 tablet 09/10/18 09/20/18 Unknown Rx Active Meds: Active Medications Acetaminophen (Tylenol) 650 mg PO Q4H PRN PRN Reason: Pain MILD(1-3)/Fever >100.5/VILLAVICENCIO Last Admin: 09/21/18 03:31 Dose: 650 mg Documented by: Albuterol (Proventil) 2.5 mg IH Q4HRT PRN PRN Reason: Wheezing Apixaban (Eliquis) 5 mg PO Q12HR [facility]; Protocol Last Admin: 09/21/18 09:36 Dose: 5 mg Documented by: Aspirin (Halfprin Ec) 81 mg PO DAILY [facility] Last Admin: 09/21/18 09:37 Dose: 81 mg Documented by: Bupropion HCl (Wellbutrin Sr) 150 mg PO BID [facility] Last Admin: 09/21/18 09:37 Dose: 150 mg Documented by: Carvedilol (Coreg) 3.125 mg PO BID [facility] Last Admin: 09/21/18 09:37 Dose: 3.125 mg Documented by: Cyclobenzaprine HCl (Flexeril) 10 mg PO TID PRN PRN Reason: Muscle Spasm Diphenhydramine HCl (Benadryl) 25 mg PO DAILY [facility] Last Admin: 09/21/18 09:36 Dose: 25 mg Documented by: Hydralazine HCl (Apresoline) 25 mg PO Q8HR [facility] Last Admin: 09/21/18 06:20 Dose: 25 mg Documented by: Hydromorphone HCl (Dilaudid) 0.5 mg IV Q3H PRN PRN Reason: Pain , Severe (7-10) Last Admin: 09/21/18 09:35 Dose: 0.5 mg Documented by: Ibuprofen (Ibuprofen) 600 mg PO Q6H PRN PRN Reason: Pain, Mild (1-3) Last Admin: 09/20/18 23:42 Dose: 600 mg Documented by: Isosorbide Mononitrate (Imdur) 60 mg PO QDAY [facility] Last Admin: 09/21/18 09:36 Dose: 60 mg Documented by: Metolazone (Zaroxolyn) 5 mg PO QDAY [facility] Last Admin: 09/21/18 09:36 Dose: 5 mg Documented by: Ondansetron HCl (Zofran) 4 mg IV Q8H PRN PRN Reason: Nausea And Vomiting Pantoprazole Sodium (Protonix) 40 mg PO QDAY [facility] Last Admin: 09/21/18 09:37 Dose: 40 mg Documented by: Polyethylene Glycol (Miralax 3350) 17 gm PO BID PRN PRN Reason: Constipation Sertraline HCl (Zoloft) 50 mg PO DAILY [facility] Last Admin: 09/21/18 09:36 Dose: 50 mg Documented by: Sodium Chloride (Sodium Chloride Flush Syringe 10 Ml) 10 ml IV BID [facility] Last Admin: 09/21/18 09:38 Dose: 10 ml Documented by: Sodium Chloride (Sodium Chloride Flush Syringe 10 Ml) 10 ml IV PRN PRN PRN Reason: LINE FLUSH Spironolactone (Aldactone) 25 mg PO QDAY [facility] Last Admin: 09/21/18 09:37 Dose: 25 mg Documented by: Review of Systems Cardiovascular: orthopnea, edema, shortness of breath, no chest pain, no palpitations, no rapid/irregular heart beat, no syncope, no lightheadedness Physical Examination Vital Signs Pulse BP 71 117/71 09/20/18 08:22 09/20/18 08:22 General appearance: no acute distress HEENT: Positive: PERRL Neck: Positive: neck supple Cardiac: Positive: Irregularly Regular Lungs: Positive: Decreased Breath Sounds Neuro: Positive: Grossly Intact Abdomen: Positive: Soft Female genitourinary: deferred Skin: Positive: Clear Extremities: Present: +1 Edema Results 09/21/18 08:18 09/21/18 08:18 Cardiac Enzymes 09/21/18 Range/Units 08:18 AST 32 (5-40) units/L CBC 09/21/18 Range/Units 08:18 WBC 3.1 L (4.5-11.0) K/mm3 RBC 3.44 L (3.65-5.03) M/mm3 Hgb 11.9 (10.1-14.3) gm/dl Hct 36.4 (30.3-42.9) % Plt Count 168 (140-440) K/mm3 Lymph # 0.2 L (1.2-5.4) K/mm3 [place] # 0.5 (0.0-0.8) K/mm3 Eos # 0.0 (0.0-0.4) K/mm3 Baso # 0.0 (0.0-0.1) K/mm3 Comprehensive Metabolic Panel 09/21/18 Range/Units 08:18 Sodium 138 (137-145) mmol/L Potassium 4.6 (3.6-5.0) mmol/L Chloride 98.8 (98-107) mmol/L Carbon Dioxide 26 (22-30) mmol/L BUN 21 H (7-17) mg/dL Creatinine 1.0 D (0.7-1.2) mg/dL Glucose 89 (65-100) mg/dL Calcium 8.1 L (8.4-10.2) mg/dL AST 32 (5-40) units/L ALT 16 (7-56) units/L Alkaline Phosphatase 91 (35-129) units/L Total Protein 5.2 L (6.3-8.2) g/dL Albumin 1.8 L (3.9-5) g/dL EKG interpretations - Telemetry EKG Rhythm: Sinus Rhythm Assessment and Plan - Patient Problems (1) Acute on chronic systolic heart failure Current Visit: No Status: Acute Plan to address problem: We'll continue aggressive treatment with intravenous diuretics, dietary salt and fluid restriction, and other guidelines directed medical therapy. We will also institute a trial of intravenous milrinone.
[2018-09-21] MEDS: MILRINONE-D5W 20 MG/100 ML 20 MG/100 ML BAG IV SCH ×2 (14:47→23:56)
--- NOTE | 2018-09-21 15:27 | Progress Note ---
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 Chest pain cardiac eval CAD s/p CABG PAF Continue Eliquis COPD On home Oxygen Morbid Obesity I counseled her on losing weight Full code status History Interval history: chest pain SOB Hospitalist Physical - Physical exam Narrative exam: Gen: Not in acute distress, lying in bed, morbidly obese HEENT: Normocephalic, atraumatic Neck: supple, no JVD Heart: S1 and S2 reg, no murmurs, rubs or gallop Lungs: Bilateral basal crackles, no wheeze Abd: soft, non tender, non distended, normal BS Ext: No edema, no clubbing, no cyanosis, Neuro: Awake,alert, oriented x 3, moves all ext, non focal Psych:Normal mood - Constitutional Vitals: Temp Pulse Resp BP Pulse Ox 98.2 F 69 20 115/78 98 09/21/18 11:53 09/21/18 11:53 09/21/18 11:53 09/21/18 11:53 09/21/18 11:53 General appearance: Present: no acute distress Results - Labs CBC & Chem 7: 09/21/18 08:18 09/21/18 08:18 Labs: Laboratory Last Values WBC 3.1 K/mm3 (4.5-11.0) L 09/21/18 08:18 RBC 3.44 M/mm3 (3.65-5.03) L 09/21/18 08:18 Hgb 11.9 gm/dl (10.1-14.3) 09/21/18 08:18 Hct 36.4 % (30.3-42.9) 09/21/18 08:18 MCV 106 fl (79-97) H 09/21/18 08:18 MCH 35 pg (28-32) H 09/21/18 08:18 MCHC 33 % (30-34) 09/21/18 08:18 RDW 15.4 % (13.2-15.2) H 09/21/18 08:18 Plt Count 168 K/mm3 (140-440) 09/21/18 08:18 Lymph % (Auto) 7.7 % (13.4-35.0) L 09/21/18 08:18 [place] % (Auto) 15.8 % (0.0-7.3) H 09/21/18 08:18 Eos % (Auto) 1.2 % (0.0-4.3) 09/21/18 08:18 Baso % (Auto) 0.8 % (0.0-1.8) 09/21/18 08:18 Lymph # 0.2 K/mm3 (1.2-5.4) L 09/21/18 08:18 [place] # 0.5 K/mm3 (0.0-0.8) 09/21/18 08:18 Eos # 0.0 K/mm3 (0.0-0.4) 09/21/18 08:18 Baso # 0.0 K/mm3 (0.0-0.1) 09/21/18 08:18 Seg Neutrophils % 74.5 % (40.0-70.0) H 09/21/18 08:18 Seg Neutrophils # 2.3 K/mm3 (1.8-7.7) 09/21/18 08:18 PT 14.1 Sec. (12.2-14.9) 09/20/18 09:24 INR 1.03 (0.87-1.13) 09/20/18 09:24 APTT 28.7 Sec. (24.2-36.6) 09/20/18 09:24 1953.89 ng/mlDDU (0-234) H 09/20/18 09:24 Sodium 138 mmol/L (137-145) 09/21/18 08:18 Potassium 4.6 mmol/L (3.6-5.0) 09/21/18 08:18 Chloride 98.8 mmol/L (98-107) 09/21/18 08:18 Carbon Dioxide 26 mmol/L (22-30) 09/21/18 08:18 18 mmol/L 09/21/18 08:18 BUN 21 mg/dL (7-17) H 09/21/18 08:18 1.0 mg/dL (0.7-1.2) D 09/21/18 08:18 Estimated GFR > 60 ml/min 09/21/18 08:18 21 % 09/21/18 08:18 Glucose 89 mg/dL (65-100) 09/21/18 08:18 5.5 % (4-6) 09/20/18 09:24 Calcium 8.1 mg/dL (8.4-10.2) L 09/21/18 08:18 Magnesium 1.90 mg/dL (1.7-2.3) 09/20/18 09:24 0.50 mg/dL (0.1-1.2) 09/21/18 08:18 < 0.2 mg/dL (0-0.2) 09/20/18 09:24 AST 32 units/L (5-40) 09/21/18 08:18 ALT 16 units/L (7-56) 09/21/18 08:18 91 units/L (35-129) 09/21/18 08:18 230 units/L (30-135) H 09/20/18 09:24 CK-MB (CK-2) 3.4 ng/mL (0.0-4.0) 09/20/18 09:24 CK-MB (CK-2) Rel Index 1.4 (0-4) 09/20/18 09:24 0.014 ng/mL (0.00-0.029) 09/20/18 09:24 NT-Pro-B Natriuret Pep 8916 pg/mL (0-900) H 09/20/18 09:24 5.2 g/dL (6.3-8.2) L 09/21/18 08:18 1.8 g/dL (3.9-5) L 09/21/18 08:18 0.5 % 09/21/18 08:18 Active Medications - Current Medications Current Medications: Generic Name Dose Route Start Last Admin Trade Name Freq PRN Reason Stop Dose Admin Acetaminophen 650 mg 09/20/18 21:31 09/21/18 03:31 Tylenol PO 650 mg Q4H PRN Administration Pain MILD(1-3)/Fever >100.5/VILLAVICENCIO Albuterol 2.5 mg 09/20/18 21:47 Proventil IH Q4HRT PRN Wheezing Apixaban 5 mg 09/20/18 22:00 09/21/18 09:36 Eliquis PO 5 mg Q12HR RADHA Administration Protocol Aspirin 81 mg 09/21/18 10:00 09/21/18 09:37 Halfprin Ec PO 81 mg DAILY RADHA Administration Bupropion HCl 150 mg 09/20/18 22:00 09/21/18 09:37 Wellbutrin Sr PO 150 mg BID RADHA Administration Carvedilol 3.125 mg 09/20/18 22:00 09/21/18 09:37 Coreg PO 3.125 mg BID RADHA Administration Cyclobenzaprine HCl 10 mg 09/20/18 21:27 Flexeril PO TID PRN Muscle Spasm Diphenhydramine HCl 25 mg 09/20/18 22:00 09/21/18 09:36 Benadryl PO 25 mg DAILY RADHA Administration Hydralazine HCl 25 mg 09/20/18 22:00 09/21/18 14:32 Apresoline PO 25 mg Q8HR RADHA Administration Hydromorphone HCl 0.5 mg 09/20/18 21:31 09/21/18 09:35 Dilaudid IV 0.5 mg Q3H PRN Administration Pain , Severe (7-10) Milrinone Lactate/Dextrose 20 mg in 100 mls @ 14.048 mls/hr 09/21/18 14:00 09/21/18 14:47 Milrinone-D5w 20 Mg/100 Ml IV 09/24/18 13:59 0.375 mcg/kg/min TITR RADHA 14.048 mls/hr Administration 0.375 MCG/KG/MIN Ibuprofen 600 mg 09/20/18 21:31 09/20/18 23:42 Ibuprofen PO 600 mg Q6H PRN Administration Pain, Mild (1-3) Isosorbide Mononitrate 60 mg 09/20/18 22:00 09/21/18 09:36 Imdur PO 60 mg QDAY RADHA Administration Metolazone 5 mg 09/21/18 10:00 09/21/18 09:36 Zaroxolyn PO 5 mg QDAY RADHA Administration Ondansetron HCl 4 mg 09/20/18 21:31 Zofran IV Q8H PRN Nausea And Vomiting Pantoprazole Sodium 40 mg 09/21/18 10:00 09/21/18 09:37 Protonix PO 40 mg QDAY RADHA Administration Polyethylene Glycol 17 gm 09/20/18 21:27 Miralax 3350 PO BID PRN Constipation Sertraline HCl 50 mg 09/20/18 22:00 09/21/18 09:36 Zoloft PO 50 mg DAILY RADHA Administration Sodium Chloride 10 ml 09/20/18 22:00 09/21/18 09:38 Sodium Chloride Flush Syringe 10 Ml IV 10 ml BID RADHA Administration Sodium Chloride 10 ml 09/20/18 21:31 Sodium Chloride Flush Syringe 10 Ml IV PRN PRN LINE FLUSH Spironolactone 25 mg 09/20/18 22:00 09/21/18 09:37 Aldactone PO 25 mg QDAY RADHA Administration
[2018-09-21] MEDS: LASIX IV SCH (17:24)
[2018-09-22] MEDS: LASIX IV SCH ×2 (06:50→17:31)
[2018-09-22] MEDS: APRESOLINE PO SCH ×2 (06:50→21:58)
[2018-09-22] MEDS: MILRINONE-D5W 20 MG/100 ML 20 MG/100 ML BAG IV SCH ×2 (07:08→17:14)
[2018-09-22] MEDS: TYLENOL PO PRN ×2 (07:09→17:31)
[2018-09-22] MEDS: DILAUDID IV PRN (12:18)
[2018-09-22] MEDS: IMDUR PO SCH (12:21)
[2018-09-22] MEDS: PROTONIX PO SCH (12:22)
[2018-09-22] MEDS: WELLBUTRIN SR PO SCH ×2 (12:22→21:58)
[2018-09-22] MEDS: ELIQUIS PO SCH ×2 (12:22→22:00)
[2018-09-22] MEDS: BENADRYL PO SCH (12:22)
[2018-09-22] MEDS: COREG PO SCH ×2 (12:22→22:00)
[2018-09-22] MEDS: HALFPRIN EC PO SCH (12:23)
[2018-09-22] MEDS: ZAROXOLYN PO SCH (12:23)
[2018-09-22] MEDS: ALDACTONE PO SCH (12:23)
[2018-09-22] MEDS: ZOLOFT PO SCH (12:23)
--- NOTE | 2018-09-22 12:45 | Progress Note ---
Assessment and Plan Chronic systolic heart failure Hx of LUE DVT Hx of coronary artery disease cardiac cath 03/2018 revealed patent SVG to LAD, patent SVG to OM, patent SVG to PDA and patent diagonal stent, LVEF 10-15%. Hx of Ischemic cardiomyopathy ejection fraction 10-15% by echo 08/2018 Presence of single chamber cardiac defibrillator underlying paroxysmal atrial fibrillation previously treated with eliquis for oral anticoagulation therapy. Tobacco abuse Recommend: Continue medical therapy for chronic systolic heart failure, coronary artery di sease and paroxysmal Afib. Subjective Date of service: 09/22/18 Interval history: Patient is resting in bed comfortably. No distress noted. Objective Vital Signs Temp Pulse Pulse Pulse Resp BP Pulse Ox 09/22/18 07:19 98.1 F 18 134/62 09/22/18 06:50 81 116/65 09/22/18 05:10 98.4 F 95 H 18 116/65 82 L 09/22/18 00:05 122.0 F H 80 116/71 97 09/21/18 23:00 69 09/21/18 22:00 69 74 74 22 103/61 100 09/21/18 19:47 98.0 F 69 18 103/61 99 09/21/18 16:43 98.6 F 67 20 115/69 95 - Physical Examination General: No Apparent Distress HEENT: Positive: PERRL Neck: Positive: neck supple Neuro: Positive: Grossly Intact Abdomen: Positive: Soft Skin: Positive: Clear Extremities: Present: +1 Edema - Imaging and Cardiology EKG: report reviewed (A fi\b 67 Low voltage)
--- NOTE | 2018-09-22 16:45 | Progress Note ---
Assessment and Plan Assessment and plan: Patient is 67-year-old female with history of HTN,CAD and s/p CABG X3 presented with chest pain. She was seen and evaluated in ED. For chest pain a V/Q scan was done, low propability of pulmonary embolism. She was admitted , evaluated by cardiology. She is diagnosed with acute on chronic systolic CHF , started on Lasix, Milrinone drip. Eliquis continued for PAF and history of DVT. Her EF is 10-15% from Echo 09/07/18. Acute on chronic systolic CHF Lasix iv bid cardiology following Milrinone drip as per composition roll maker and cutter Acute on chronic resp failure Supplemental Oxygen Ischemic cardiomyopathy EF 10-15% Chest pain cardiac evaluation Non cardiac chest pain History of DVT left cephalic vein and left int jugular vein On Eliquis CAD s/p CABG PAF Continue Eliquis COPD On home Oxygen Morbid Obesity I counseled her on losing weight Full code status Hopefully dc home in few days when stable. History Interval history: chest pain,resolved Less SOB Hospitalist Physical - Physical exam Narrative exam: Gen: Not in acute distress, lying in bed, morbidly obese HEENT: Normocephalic, atraumatic Neck: supple, no JVD Heart: S1 and S2 reg, no murmurs, rubs or gallop Lungs: Bilateral basal crackles, no wheeze Abd: soft, non tender, non distended, normal BS Ext: No edema, no clubbing, no cyanosis, Neuro: Awake,alert, oriented x 3, moves all ext, non focal Psych:Normal mood - Constitutional Vitals: Temp Pulse Resp BP Pulse Ox 98.1 F 81 18 134/62 96 09/22/18 07:19 09/22/18 06:50 09/22/18 07:19 09/22/18 07:19 09/22/18 10:00 General appearance: Present: no acute distress Results - Labs CBC & Chem 7: 09/21/18 08:18 09/21/18 08:18 Labs: Laboratory Last Values WBC 3.1 K/mm3 (4.5-11.0) L 09/21/18 08:18 RBC 3.44 M/mm3 (3.65-5.03) L 09/21/18 08:18 Hgb 11.9 gm/dl (10.1-14.3) 09/21/18 08:18 Hct 36.4 % (30.3-42.9) 09/21/18 08:18 MCV 106 fl (79-97) H 09/21/18 08:18 MCH 35 pg (28-32) H 09/21/18 08:18 MCHC 33 % (30-34) 09/21/18 08:18 RDW 15.4 % (13.2-15.2) H 09/21/18 08:18 Plt Count 168 K/mm3 (140-440) 09/21/18 08:18 Lymph % (Auto) 7.7 % (13.4-35.0) L 09/21/18 08:18 [place] % (Auto) 15.8 % (0.0-7.3) H 09/21/18 08:18 Eos % (Auto) 1.2 % (0.0-4.3) 09/21/18 08:18 Baso % (Auto) 0.8 % (0.0-1.8) 09/21/18 08:18 Lymph # 0.2 K/mm3 (1.2-5.4) L 09/21/18 08:18 [place] # 0.5 K/mm3 (0.0-0.8) 09/21/18 08:18 Eos # 0.0 K/mm3 (0.0-0.4) 09/21/18 08:18 Baso # 0.0 K/mm3 (0.0-0.1) 09/21/18 08:18 Seg Neutrophils % 74.5 % (40.0-70.0) H 09/21/18 08:18 Seg Neutrophils # 2.3 K/mm3 (1.8-7.7) 09/21/18 08:18 PT 14.1 Sec. (12.2-14.9) 09/20/18 09:24 INR 1.03 (0.87-1.13) 09/20/18 09:24 APTT 28.7 Sec. (24.2-36.6) 09/20/18 09:24 1953.89 ng/mlDDU (0-234) H 09/20/18 09:24 Sodium 138 mmol/L (137-145) 09/21/18 08:18 Potassium 4.6 mmol/L (3.6-5.0) 09/21/18 08:18 Chloride 98.8 mmol/L (98-107) 09/21/18 08:18 Carbon Dioxide 26 mmol/L (22-30) 09/21/18 08:18 18 mmol/L 09/21/18 08:18 BUN 21 mg/dL (7-17) H 09/21/18 08:18 1.0 mg/dL (0.7-1.2) D 09/21/18 08:18 Estimated GFR > 60 ml/min 09/21/18 08:18 21 % 09/21/18 08:18 Glucose 89 mg/dL (65-100) 09/21/18 08:18 5.5 % (4-6) 09/20/18 09:24 Calcium 8.1 mg/dL (8.4-10.2) L 09/21/18 08:18 Magnesium 1.90 mg/dL (1.7-2.3) 09/20/18 09:24 0.50 mg/dL (0.1-1.2) 09/21/18 08:18 < 0.2 mg/dL (0-0.2) 09/20/18 09:24 AST 32 units/L (5-40) 09/21/18 08:18 ALT 16 units/L (7-56) 09/21/18 08:18 91 units/L (35-129) 09/21/18 08:18 230 units/L (30-135) H 09/20/18 09:24 CK-MB (CK-2) 3.4 ng/mL (0.0-4.0) 09/20/18 09:24 CK-MB (CK-2) Rel Index 1.4 (0-4) 09/20/18 09:24 0.014 ng/mL (0.00-0.029) 09/20/18 09:24 NT-Pro-B Natriuret Pep 8916 pg/mL (0-900) H 09/20/18 09:24 5.2 g/dL (6.3-8.2) L 09/21/18 08:18 1.8 g/dL (3.9-5) L 09/21/18 08:18 0.5 % 09/21/18 08:18 Active Medications - Current Medications Current Medications: Generic Name Dose Route Start Last Admin Trade Name Freq PRN Reason Stop Dose Admin Acetaminophen 650 mg 09/20/18 21:31 09/22/18 07:09 Tylenol PO 650 mg Q4H PRN Administration Pain MILD(1-3)/Fever >100.5/VILLAVICENCIO Albuterol 2.5 mg 09/20/18 21:47 Proventil IH Q4HRT PRN Wheezing Apixaban 5 mg 09/20/18 22:00 09/22/18 12:22 Eliquis PO 5 mg Q12HR RADHA Administration Protocol Aspirin 81 mg 09/21/18 10:00 09/22/18 12:23 Halfprin Ec PO 81 mg DAILY RADHA Administration Bupropion HCl 150 mg 09/20/18 22:00 09/22/18 12:22 Wellbutrin Sr PO 150 mg BID RADHA Administration Carvedilol 3.125 mg 09/20/18 22:00 09/22/18 12:22 Coreg PO 3.125 mg BID RADHA Administration Cyclobenzaprine HCl 10 mg 09/20/18 21:27 Flexeril PO TID PRN Muscle Spasm Diphenhydramine HCl 25 mg 09/20/18 22:00 09/22/18 12:22 Benadryl PO 25 mg DAILY RADHA Administration Furosemide 40 mg 09/21/18 18:00 09/22/18 06:50 Lasix IV 40 mg 0600,1800 RADHA Administration Hydralazine HCl 25 mg 09/20/18 22:00 09/22/18 06:50 Apresoline PO 25 mg Q8HR RADHA Administration Hydromorphone HCl 0.5 mg 09/20/18 21:31 09/22/18 12:18 Dilaudid IV 0.5 mg Q3H PRN Administration Pain , Severe (7-10) Milrinone Lactate/Dextrose 20 mg in 100 mls @ 14.048 mls/hr 09/21/18 14:00 09/22/18 07:08 Milrinone-D5w 20 Mg/100 Ml IV 09/24/18 13:59 0.375 mcg/kg/min TITR RADHA 14.048 mls/hr Administration 0.375 MCG/KG/MIN Ibuprofen 600 mg 09/20/18 21:31 09/20/18 23:42 Ibuprofen PO 600 mg Q6H PRN Administration Pain, Mild (1-3) Isosorbide Mononitrate 60 mg 09/20/18 22:00 09/22/18 12:21 Imdur PO 60 mg QDAY RADHA Administration Metolazone 5 mg 09/21/18 10:00 09/22/18 12:23 Zaroxolyn PO 5 mg QDAY RADHA Administration Ondansetron HCl 4 mg 09/20/18 21:31 Zofran IV Q8H PRN Nausea And Vomiting Pantoprazole Sodium 40 mg 09/21/18 10:00 09/22/18 12:22 Protonix PO 40 mg QDAY RADHA Administration Polyethylene Glycol 17 gm 09/20/18 21:27 Miralax 3350 PO BID PRN Constipation Sertraline HCl 50 mg 09/20/18 22:00 09/22/18 12:23 Zoloft PO 50 mg DAILY RADHA Administration Sodium Chloride 10 ml 09/20/18 22:00 09/21/18 22:55 Sodium Chloride Flush Syringe 10 Ml IV 10 ml BID RADHA Administration Sodium Chloride 10 ml 09/20/18 21:31 Sodium Chloride Flush Syringe 10 Ml IV PRN PRN LINE FLUSH Spironolactone 25 mg 09/20/18 22:00 09/22/18 12:23 Aldactone PO 25 mg QDAY RADHA Administration
[2018-09-22] MEDS: IBUPROFEN PO PRN (21:57)
[2018-09-22] MEDS: SODIUM CHLORIDE FLUSH SYRINGE 10 ML IV SCH (22:01)
[2018-09-23] MEDS: MILRINONE-D5W 20 MG/100 ML 20 MG/100 ML BAG IV SCH ×2 (04:47→13:08)
[2018-09-23] MEDS: LASIX IV SCH ×2 (06:50→18:36)
[2018-09-23] MEDS: APRESOLINE PO SCH ×2 (06:58→13:08)
[2018-09-23 08:49] LABS: Hematocrit 30.7 % (30.3-42.9); Hemoglobin 10.2 gm/dl (10.1-14.3); Mean Corpuscular HGB Conc 33 % (30-34); Mean Corpuscular Volume 104 fl (79-97); Platelet Count 173 K/mm3 (140-440); Red Blood Count 2.95 M/mm3 (3.65-5.03)
[2018-09-23 08:50] LABS: Calcium 7.8 mg/dL (8.4-10.2)
[2018-09-23] MEDS: IMDUR PO SCH (09:26)
[2018-09-23] MEDS: WELLBUTRIN SR PO SCH (09:26)
[2018-09-23] MEDS: ZAROXOLYN PO SCH (09:26)
[2018-09-23] MEDS: COREG PO SCH (09:27)
[2018-09-23] MEDS: ELIQUIS PO SCH (09:27)
[2018-09-23] MEDS: SODIUM CHLORIDE FLUSH SYRINGE 10 ML IV SCH (09:27)
[2018-09-23] MEDS: PROTONIX PO SCH (09:27)
[2018-09-23] MEDS: ALDACTONE PO SCH (09:27)
[2018-09-23] MEDS: BENADRYL PO SCH (09:27)
[2018-09-23] MEDS: ZOLOFT PO SCH (09:27)
[2018-09-23] MEDS: IBUPROFEN PO PRN (09:27)
[2018-09-23] MEDS: HALFPRIN EC PO SCH (09:27)
--- NOTE | 2018-09-23 12:25 | Progress Note ---
Assessment and Plan Chronic systolic heart failure Hx of LUE DVT Hx of coronary artery disease cardiac cath 03/2018 revealed patent SVG to LAD, patent SVG to OM, patent SVG to PDA and patent diagonal stent, LVEF 10-15%. Hx of Ischemic cardiomyopathy ejection fraction 10-15% by echo 08/2018 Presence of single chamber cardiac defibrillator underlying paroxysmal atrial fibrillation previously treated with eliquis for oral anticoagulation therapy. Tobacco abuse Recommend: Continue medical therapy for chronic systolic heart failure, coronary artery di sease and paroxysmal Afib. Subjective Date of service: 09/23/18 Interval history: Patient is resting in bed comfortably. Admits she is diuresing. IV milrinone continues. Objective Vital Signs Temp Pulse Pulse Pulse Pulse Resp BP 09/23/18 08:01 97.1 F L 18 92/46 09/23/18 06:58 64 110/56 09/23/18 04:16 97.9 F 60 18 129/60 09/22/18 23:45 97.4 F L 72 18 122/58 09/22/18 23:00 72 09/22/18 22:00 85 74 62 62 22 113/69 09/22/18 21:58 85 113/69 09/22/18 20:16 97.5 F L 62 19 113/61 09/22/18 19:53 Pulse Ox 09/23/18 08:01 09/23/18 06:58 09/23/18 04:16 97 09/22/18 23:45 94 09/22/18 23:00 09/22/18 22:00 98 09/22/18 21:58 09/22/18 20:16 98 09/22/18 19:53 100 - Physical Examination General: No Apparent Distress HEENT: Positive: PERRL Neck: Positive: trachea midline Cardiac: Positive: Reg Rate and Rhythm Lungs: Positive: Decreased Breath Sounds Neuro: Positive: Grossly Intact Abdomen: Positive: Soft Extremities: Present: +1 Edema - Labs and Meds CBC 09/23/18 Range/Units 08:09 WBC 4.1 L (4.5-11.0) K/mm3 RBC 2.95 L (3.65-5.03) M/mm3 Hgb 10.2 (10.1-14.3) gm/dl Hct 30.7 (30.3-42.9) % Plt Count 173 (140-440) K/mm3 Comprehensive Metabolic Panel 09/23/18 Range/Units 08:09 Sodium 136 L (137-145) mmol/L Potassium 4.5 (3.6-5.0) mmol/L Chloride 96.7 L (98-107) mmol/L Carbon Dioxide 31 H (22-30) mmol/L BUN 26 H (7-17) mg/dL Creatinine 1.4 H (0.7-1.2) mg/dL Glucose 102 H (65-100) mg/dL Calcium 7.8 L (8.4-10.2) mg/dL
--- NOTE | 2018-09-23 12:58 | Progress Note ---
Assessment and Plan Assessment and plan: Acute on chronic systolic CHF Lasix iv bid cardiology following Milrinone drip as per outdoor recreation specialist Acute on chronic resp failure Supplemental Oxygen Ischemic cardiomyopathy EF 10-15% Chest pain cardiac evaluation Non cardiac chest pain History of DVT left cephalic vein and left int jugular vein On Eliquis CAD s/p CABG PAF Continue Eliquis COPD On home Oxygen Morbid Obesity I counseled her on losing weight Full code status History Interval history: Patient is 67-year-old female with history of HTN,CAD and s/p CABG X3 presented with chest pain. She was seen and evaluated in ED. For chest pain a V/Q scan was done, low propability of pulmonary embolism. She was admitted , evaluated by cardiology. She is diagnosed with acute on chronic systolic CHF , started on Lasix, Milrinone drip. Eliquis continued for PAF and history of DVT. Her EF is 10-15% from Echo 09/07/18. Hospitalist Physical - Constitutional Vitals: Temp Pulse Resp BP Pulse Ox 97.2 F L 64 18 110/68 97 09/23/18 12:11 09/23/18 06:58 09/23/18 12:11 09/23/18 12:11 09/23/18 04:16 General appearance: Present: no acute distress - EENT Eyes: Present: PERRL, EOM intact ENT: hearing intact, clear oral mucosa, dentition normal - Neck Neck: Present: supple, normal ROM - Respiratory Respiratory effort: normal Respiratory: bilateral: CTA - Cardiovascular Rhythm: regular Heart Sounds: Present: S1 & S2. Absent: gallop, rub - Extremities Extremities: no ischemia, No edema, Full ROM - Abdominal General gastrointestinal: soft, non-tender, non-distended, normal bowel sounds - Integumentary Integumentary: Present: clear, warm, dry - Neurologic Neurologic: CNII-XII intact, moves all extremities Results - Labs CBC & Chem 7: 09/23/18 08:09 09/23/18 08:09 Labs: Laboratory Last Values WBC 4.1 K/mm3 (4.5-11.0) L 09/23/18 08:09 RBC 2.95 M/mm3 (3.65-5.03) L 09/23/18 08:09 Hgb 10.2 gm/dl (10.1-14.3) 09/23/18 08:09 Hct 30.7 % (30.3-42.9) 09/23/18 08:09 MCV 104 fl (79-97) H 09/23/18 08:09 MCH 35 pg (28-32) H 09/23/18 08:09 MCHC 33 % (30-34) 09/23/18 08:09 RDW 15.0 % (13.2-15.2) 09/23/18 08:09 Plt Count 173 K/mm3 (140-440) 09/23/18 08:09 Lymph % (Auto) 7.7 % (13.4-35.0) L 09/21/18 08:18 [place] % (Auto) 15.8 % (0.0-7.3) H 09/21/18 08:18 Eos % (Auto) 1.2 % (0.0-4.3) 09/21/18 08:18 Baso % (Auto) 0.8 % (0.0-1.8) 09/21/18 08:18 Lymph # 0.2 K/mm3 (1.2-5.4) L 09/21/18 08:18 [place] # 0.5 K/mm3 (0.0-0.8) 09/21/18 08:18 Eos # 0.0 K/mm3 (0.0-0.4) 09/21/18 08:18 Baso # 0.0 K/mm3 (0.0-0.1) 09/21/18 08:18 Seg Neutrophils % 74.5 % (40.0-70.0) H 09/21/18 08:18 Seg Neutrophils # 2.3 K/mm3 (1.8-7.7) 09/21/18 08:18 PT 14.1 Sec. (12.2-14.9) 09/20/18 09:24 INR 1.03 (0.87-1.13) 09/20/18 09:24 APTT 28.7 Sec. (24.2-36.6) 09/20/18 09:24 1953.89 ng/mlDDU (0-234) H 09/20/18 09:24 Sodium 136 mmol/L (137-145) L 09/23/18 08:09 Potassium 4.5 mmol/L (3.6-5.0) 09/23/18 08:09 Chloride 96.7 mmol/L (98-107) L 09/23/18 08:09 Carbon Dioxide 31 mmol/L (22-30) H 09/23/18 08:09 13 mmol/L 09/23/18 08:09 BUN 26 mg/dL (7-17) H 09/23/18 08:09 1.4 mg/dL (0.7-1.2) H 09/23/18 08:09 Estimated GFR 45 ml/min 09/23/18 08:09 19 % 09/23/18 08:09 Glucose 102 mg/dL (65-100) H 09/23/18 08:09 5.5 % (4-6) 09/20/18 09:24 Calcium 7.8 mg/dL (8.4-10.2) L 09/23/18 08:09 Magnesium 1.90 mg/dL (1.7-2.3) 09/20/18 09:24 0.50 mg/dL (0.1-1.2) 09/21/18 08:18 < 0.2 mg/dL (0-0.2) 09/20/18 09:24 AST 32 units/L (5-40) 09/21/18 08:18 ALT 16 units/L (7-56) 09/21/18 08:18 91 units/L (35-129) 09/21/18 08:18 230 units/L (30-135) H 09/20/18 09:24 CK-MB (CK-2) 3.4 ng/mL (0.0-4.0) 09/20/18 09:24 CK-MB (CK-2) Rel Index 1.4 (0-4) 09/20/18 09:24 0.014 ng/mL (0.00-0.029) 09/20/18 09:24 NT-Pro-B Natriuret Pep 8916 pg/mL (0-900) H 09/20/18 09:24 5.2 g/dL (6.3-8.2) L 09/21/18 08:18 1.8 g/dL (3.9-5) L 09/21/18 08:18 0.5 % 09/21/18 08:18 Active Medications - Current Medications Current Medications: Generic Name Dose Route Start Last Admin Trade Name Freq PRN Reason Stop Dose Admin Acetaminophen 650 mg 09/20/18 21:31 09/22/18 17:31 Tylenol PO 650 mg Q4H PRN Administration Pain MILD(1-3)/Fever >100.5/VILLAVICENCIO Albuterol 2.5 mg 09/20/18 21:47 Proventil IH Q4HRT PRN Wheezing Apixaban 5 mg 09/20/18 22:00 09/23/18 09:27 Eliquis PO 5 mg Q12HR RADHA Administration Protocol Aspirin 81 mg 09/21/18 10:00 09/23/18 09:27 Halfprin Ec PO 81 mg DAILY RADHA Administration Bupropion HCl 150 mg 09/20/18 22:00 09/23/18 09:26 Wellbutrin Sr PO 150 mg BID RADHA Administration Carvedilol 3.125 mg 09/20/18 22:00 09/23/18 09:27 Coreg PO 3.125 mg BID RADHA Administration Cyclobenzaprine HCl 10 mg 09/20/18 21:27 Flexeril PO TID PRN Muscle Spasm Diphenhydramine HCl 25 mg 09/20/18 22:00 09/23/18 09:27 Benadryl PO 25 mg DAILY RADHA Administration Furosemide 40 mg 09/21/18 18:00 09/23/18 06:50 Lasix IV 40 mg 0600,1800 RADHA Administration Hydralazine HCl 25 mg 09/20/18 22:00 09/23/18 06:58 Apresoline PO 25 mg Q8HR RADHA Administration Hydromorphone HCl 0.5 mg 09/20/18 21:31 09/22/18 12:18 Dilaudid IV 0.5 mg Q3H PRN Administration Pain , Severe (7-10) Milrinone Lactate/Dextrose 20 mg in 100 mls @ 14.048 mls/hr 09/21/18 14:00 09/23/18 04:47 Milrinone-D5w 20 Mg/100 Ml IV 09/24/18 13:59 0.375 mcg/kg/min TITR RADHA 14.048 mls/hr Administration 0.375 MCG/KG/MIN Ibuprofen 600 mg 09/20/18 21:31 09/23/18 09:27 Ibuprofen PO 600 mg Q6H PRN Administration Pain, Mild (1-3) Isosorbide Mononitrate 60 mg 09/20/18 22:00 09/23/18 09:26 Imdur PO 60 mg QDAY RADHA Administration Metolazone 5 mg 09/21/18 10:00 09/23/18 09:26 Zaroxolyn PO 5 mg QDAY RADHA Administration Ondansetron HCl 4 mg 09/20/18 21:31 Zofran IV Q8H PRN Nausea And Vomiting Pantoprazole Sodium 40 mg 09/21/18 10:00 09/23/18 09:27 Protonix PO 40 mg QDAY RADHA Administration Polyethylene Glycol 17 gm 09/20/18 21:27 Miralax 3350 PO BID PRN Constipation Sertraline HCl 50 mg 09/20/18 22:00 09/23/18 09:27 Zoloft PO 50 mg DAILY RADHA Administration Sodium Chloride 10 ml 09/20/18 22:00 09/23/18 09:27 Sodium Chloride Flush Syringe 10 Ml IV 10 ml BID RADHA Administration Sodium Chloride 10 ml 09/20/18 21:31 Sodium Chloride Flush Syringe 10 Ml IV PRN PRN LINE FLUSH Spironolactone 25 mg 09/20/18 22:00 09/23/18 09:27 Aldactone PO 25 mg QDAY RADHA Administration
[2018-09-23] MEDS: DILAUDID IV PRN (15:59)
[2018-09-24] MEDS: MILRINONE-D5W 20 MG/100 ML 20 MG/100 ML BAG IV SCH (06:32)
[2018-09-24] MEDS: LASIX IV SCH ×2 (06:32→18:46)
[2018-09-24] MEDS: APRESOLINE PO SCH ×4 (06:33→21:43)
[2018-09-24] MEDS: HALFPRIN EC PO SCH (09:54)
[2018-09-24] MEDS: WELLBUTRIN SR PO SCH ×3 (09:54→21:43)
[2018-09-24] MEDS: ZAROXOLYN PO SCH (09:54)
[2018-09-24] MEDS: COREG PO SCH ×3 (09:54→21:43)
[2018-09-24] MEDS: SODIUM CHLORIDE FLUSH SYRINGE 10 ML IV SCH ×4 (09:54→21:45)
[2018-09-24] MEDS: ZOLOFT PO SCH (09:54)
[2018-09-24] MEDS: BENADRYL PO SCH (09:54)
[2018-09-24] MEDS: PROTONIX PO SCH (09:54)
[2018-09-24] MEDS: ALDACTONE PO SCH (09:54)
[2018-09-24] MEDS: ELIQUIS PO SCH ×3 (09:55→21:43)
[2018-09-24] MEDS: DILAUDID IV PRN ×2 (09:57→19:48)
--- NOTE | 2018-09-24 10:01 | Progress Note ---
Assessment and Plan Chronic systolic heart failure Hx of LUE DVT Hx of coronary artery disease cardiac cath 03/2018 revealed patent SVG to LAD, patent SVG to OM, patent SVG to PDA and patent diagonal stent, LVEF 10-15%. Hx of Ischemic cardiomyopathy ejection fraction 10-15% by echo 08/2018 Presence of single chamber cardiac defibrillator underlying paroxysmal atrial fibrillation previously treated with eliquis for oral anticoagulation therapy. Tobacco abuse Recommend: We will reduce isosorbide from 60mg to 30mg daily due to headaches. Continue medical therapy for chronic systolic heart failure, coronary artery disease and paroxysmal Afib. Subjective Date of service: 09/24/18 Interval history: Patient is resting in bed comfortably. No distress noted. IV milrinone continues. Reports of headaches overnight. Objective Vital Signs Temp Pulse Pulse Pulse Pulse Resp BP 09/24/18 09:08 97.5 F L 89 16 140/77 09/24/18 06:33 76 109/64 09/24/18 04:37 98.0 F 79 20 135/94 09/23/18 23:54 97.6 F 66 17 109/51 09/23/18 23:00 79 09/23/18 22:00 79 74 74 22 09/23/18 19:43 97.4 F L 79 17 131/65 09/23/18 16:54 98.4 F 18 122/59 09/23/18 12:11 97.2 F L 18 110/68 Pulse Ox 09/24/18 09:08 90 09/24/18 06:33 09/24/18 04:37 95 09/23/18 23:54 100 09/23/18 23:00 09/23/18 22:00 98 09/23/18 19:43 97 09/23/18 16:54 09/23/18 12:11 - Physical Examination General: No Apparent Distress HEENT: Positive: PERRL Neck: Positive: trachea midline Cardiac: Positive: irregularly irregular Lungs: Positive: Decreased Breath Sounds Neuro: Positive: Grossly Intact Abdomen: Positive: Soft Extremities: Present: +1 Edema
--- NOTE | 2018-09-24 12:33 | Progress Note ---
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 Decrease Imdur If headache persists will obtain CT head Acute on chronic resp failure Supplemental Oxygen Ischemic cardiomyopathy EF 10-15% Chest pain cardiac evaluation Non cardiac chest pain History of DVT left cephalic vein and left int jugular vein On Eliquis CAD s/p CABG PAF Continue Eliquis COPD On home Oxygen Morbid Obesity I counseled her on losing weight Full code status History Interval history: Patient is 67-year-old female with history of HTN,CAD and s/p CABG X3 presented with chest pain. She was seen and evaluated in ED. For chest pain a V/Q scan was done, low propability of pulmonary embolism. She was admitted , evaluated by cardiology. She is diagnosed with acute on chronic systolic CHF , started on Lasix, Milrinone drip. Eliquis continued for PAF and history of DVT. Her EF is 10-15% from Echo 09/07/18. Hospitalist Physical - Constitutional Vitals: Temp Pulse Resp BP Pulse Ox 97.5 F L 89 16 140/77 93 09/24/18 09:08 09/24/18 09:08 09/24/18 09:08 09/24/18 09:08 09/24/18 10:00 General appearance: Present: no acute distress - EENT Eyes: Present: PERRL, EOM intact ENT: hearing intact, clear oral mucosa, dentition normal - Neck Neck: Present: supple, normal ROM - Respiratory Respiratory effort: normal Respiratory: bilateral: CTA - Cardiovascular Rhythm: regular Heart Sounds: Present: S1 & S2. Absent: gallop, rub - Extremities Extremities: no ischemia, No edema, Full ROM - Abdominal General gastrointestinal: soft, non-tender, non-distended, normal bowel sounds - Integumentary Integumentary: Present: clear, warm, dry - Neurologic Neurologic: CNII-XII intact, moves all extremities Results - Labs CBC & Chem 7: 09/23/18 08:09 09/23/18 08:09 Labs: Laboratory Last Values WBC 4.1 K/mm3 (4.5-11.0) L 09/23/18 08:09 RBC 2.95 M/mm3 (3.65-5.03) L 09/23/18 08:09 Hgb 10.2 gm/dl (10.1-14.3) 09/23/18 08:09 Hct 30.7 % (30.3-42.9) 09/23/18 08:09 MCV 104 fl (79-97) H 09/23/18 08:09 MCH 35 pg (28-32) H 09/23/18 08:09 MCHC 33 % (30-34) 09/23/18 08:09 RDW 15.0 % (13.2-15.2) 09/23/18 08:09 Plt Count 173 K/mm3 (140-440) 09/23/18 08:09 Lymph % (Auto) 7.7 % (13.4-35.0) L 09/21/18 08:18 [place] % (Auto) 15.8 % (0.0-7.3) H 09/21/18 08:18 Eos % (Auto) 1.2 % (0.0-4.3) 09/21/18 08:18 Baso % (Auto) 0.8 % (0.0-1.8) 09/21/18 08:18 Lymph # 0.2 K/mm3 (1.2-5.4) L 09/21/18 08:18 [place] # 0.5 K/mm3 (0.0-0.8) 09/21/18 08:18 Eos # 0.0 K/mm3 (0.0-0.4) 09/21/18 08:18 Baso # 0.0 K/mm3 (0.0-0.1) 09/21/18 08:18 Seg Neutrophils % 74.5 % (40.0-70.0) H 09/21/18 08:18 Seg Neutrophils # 2.3 K/mm3 (1.8-7.7) 09/21/18 08:18 PT 14.1 Sec. (12.2-14.9) 09/20/18 09:24 INR 1.03 (0.87-1.13) 09/20/18 09:24 APTT 28.7 Sec. (24.2-36.6) 09/20/18 09:24 1953.89 ng/mlDDU (0-234) H 09/20/18 09:24 Sodium 136 mmol/L (137-145) L 09/23/18 08:09 Potassium 4.5 mmol/L (3.6-5.0) 09/23/18 08:09 Chloride 96.7 mmol/L (98-107) L 09/23/18 08:09 Carbon Dioxide 31 mmol/L (22-30) H 09/23/18 08:09 13 mmol/L 09/23/18 08:09 BUN 26 mg/dL (7-17) H 09/23/18 08:09 1.4 mg/dL (0.7-1.2) H 09/23/18 08:09 Estimated GFR 45 ml/min 09/23/18 08:09 19 % 09/23/18 08:09 Glucose 102 mg/dL (65-100) H 09/23/18 08:09 5.5 % (4-6) 09/20/18 09:24 Calcium 7.8 mg/dL (8.4-10.2) L 09/23/18 08:09 Magnesium 1.90 mg/dL (1.7-2.3) 09/20/18 09:24 0.50 mg/dL (0.1-1.2) 09/21/18 08:18 < 0.2 mg/dL (0-0.2) 09/20/18 09:24 AST 32 units/L (5-40) 09/21/18 08:18 ALT 16 units/L (7-56) 09/21/18 08:18 91 units/L (35-129) 09/21/18 08:18 230 units/L (30-135) H 09/20/18 09:24 CK-MB (CK-2) 3.4 ng/mL (0.0-4.0) 09/20/18 09:24 CK-MB (CK-2) Rel Index 1.4 (0-4) 09/20/18 09:24 0.014 ng/mL (0.00-0.029) 09/20/18 09:24 NT-Pro-B Natriuret Pep 8916 pg/mL (0-900) H 09/20/18 09:24 5.2 g/dL (6.3-8.2) L 09/21/18 08:18 1.8 g/dL (3.9-5) L 09/21/18 08:18 0.5 % 09/21/18 08:18 Active Medications - Current Medications Current Medications: Generic Name Dose Route Start Last Admin Trade Name Freq PRN Reason Stop Dose Admin Acetaminophen 650 mg 09/20/18 21:31 09/22/18 17:31 Tylenol PO 650 mg Q4H PRN Administration Pain MILD(1-3)/Fever >100.5/VILLAVICENCIO Albuterol 2.5 mg 09/20/18 21:47 Proventil IH Q4HRT PRN Wheezing Apixaban 5 mg 09/20/18 22:00 09/24/18 09:55 Eliquis PO 5 mg Q12HR RADHA Administration Protocol Aspirin 81 mg 09/21/18 10:00 09/24/18 09:54 Halfprin Ec PO 81 mg DAILY RADHA Administration Bupropion HCl 150 mg 09/20/18 22:00 09/24/18 09:54 Wellbutrin Sr PO 150 mg BID RADHA Administration Carvedilol 3.125 mg 09/20/18 22:00 09/24/18 09:54 Coreg PO 3.125 mg BID RADHA Administration Cyclobenzaprine HCl 10 mg 09/20/18 21:27 Flexeril PO TID PRN Muscle Spasm Diphenhydramine HCl 25 mg 09/20/18 22:00 09/24/18 09:54 Benadryl PO 25 mg DAILY RADHA Administration Furosemide 40 mg 09/21/18 18:00 09/24/18 06:32 Lasix IV 40 mg 0600,1800 RADHA Administration Hydralazine HCl 25 mg 09/20/18 22:00 09/24/18 06:33 Apresoline PO 25 mg Q8HR RADHA Administration Hydromorphone HCl 0.5 mg 09/20/18 21:31 09/24/18 09:57 Dilaudid IV 0.5 mg Q3H PRN Administration Pain , Severe (7-10) Milrinone Lactate/Dextrose 20 mg in 100 mls @ 14.048 mls/hr 09/21/18 14:00 09/24/18 06:32 Milrinone-D5w 20 Mg/100 Ml IV 09/24/18 13:59 0.375 mcg/kg/min TITR RADHA 14.048 mls/hr Administration 0.375 MCG/KG/MIN Ibuprofen 600 mg 09/20/18 21:31 09/23/18 09:27 Ibuprofen PO 600 mg Q6H PRN Administration Pain, Mild (1-3) Isosorbide Mononitrate 30 mg 09/24/18 10:00 Imdur PO QDAY RADHA Ondansetron HCl 4 mg 09/20/18 21:31 Zofran IV Q8H PRN Nausea And Vomiting Pantoprazole Sodium 40 mg 09/21/18 10:00 09/24/18 09:54 Protonix PO 40 mg QDAY RADHA Administration Polyethylene Glycol 17 gm 09/20/18 21:27 Miralax 3350 PO BID PRN Constipation Sertraline HCl 50 mg 09/20/18 22:00 09/24/18 09:54 Zoloft PO 50 mg DAILY RADHA Administration Sodium Chloride 10 ml 09/20/18 22:00 09/24/18 09:54 Sodium Chloride Flush Syringe 10 Ml IV 10 ml BID RADHA Administration Sodium Chloride 10 ml 09/20/18 21:31 Sodium Chloride Flush Syringe 10 Ml IV PRN PRN LINE FLUSH Spironolactone 25 mg 09/20/18 22:00 09/24/18 09:54 Aldactone PO 25 mg QDAY RADHA Administration
[2018-09-24] MEDS: IMDUR PO SCH (14:04)
[2018-09-24] MEDS: ZOFRAN IV PRN (18:46)
[2018-09-25] MEDS: APRESOLINE PO SCH ×4 (06:20→22:42)
[2018-09-25] MEDS: LASIX IV SCH ×3 (06:21→17:56)
[2018-09-25 06:25] LABS: Basophils % (Auto) 0.4 % (0.0-1.8); Eosinophils % (Auto) 0.9 % (0.0-4.3); Hematocrit 31.6 % (30.3-42.9); Hemoglobin 10.6 gm/dl (10.1-14.3); Lymphocytes # (Auto) 0.2 K/mm3 (1.2-5.4); Lymphocytes % (Auto) 5.3 % (13.4-35.0); Mean Corpuscular HGB Conc 34 % (30-34); Mean Corpuscular Volume 104 fl (79-97); Monocytes # (Auto) 0.5 K/mm3 (0.0-0.8); Monocytes % (Auto) 14.8 % (0.0-7.3); Platelet Count 182 K/mm3 (140-440); Red Blood Count 3.03 M/mm3 (3.65-5.03); Red Cell Distribution Width 15.3 % (13.2-15.2)
[2018-09-25 06:45] LABS: Calcium 8.2 mg/dL (8.4-10.2)
[2018-09-25] MEDS: PROVENTIL IH SCH ×2 (08:16→21:18)
[2018-09-25] MEDS: PULMICORT IH SCH ×2 (08:16→21:17)
[2018-09-25] MEDS: IMDUR PO SCH (09:25)
[2018-09-25] MEDS: WELLBUTRIN SR PO SCH ×2 (09:26→22:39)
[2018-09-25] MEDS: PROTONIX PO SCH (09:26)
[2018-09-25] MEDS: HALFPRIN EC PO SCH (09:26)
[2018-09-25] MEDS: ELIQUIS PO SCH ×2 (09:27→22:39)
[2018-09-25] MEDS: ALDACTONE PO SCH (09:27)
[2018-09-25] MEDS: ZOLOFT PO SCH (09:27)
[2018-09-25] MEDS: BENADRYL PO SCH (09:27)
[2018-09-25] MEDS: COREG PO SCH ×2 (09:28→22:39)
[2018-09-25] MEDS: FLEXERIL PO PRN (09:30)
--- NOTE | 2018-09-25 12:28 | Progress Note ---
Assessment and Plan Chronic systolic heart failure Hx of LUE DVT Hx of coronary artery disease cardiac cath 03/2018 revealed patent SVG to LAD, patent SVG to OM, patent SVG to PDA and patent diagonal stent, LVEF 10-15%. Hx of Ischemic cardiomyopathy ejection fraction 10-15% by echo 08/2018 Presence of single chamber cardiac defibrillator underlying paroxysmal atrial fibrillation previously treated with eliquis for oral anticoagulation therapy. Tobacco abuse Recommend: Continue medical therapy for chronic systolic heart failure, coronary artery di sease and paroxysmal Afib. We will reinitiate IV milrinone therapy for aggressive management. Subjective Date of service: 09/25/18 Interval history: Patient reports her breathing has improved. Still with lower extremity edema. Objective Vital Signs Temp Pulse Pulse Pulse Pulse Resp Resp 09/25/18 11:41 97.6 F 18 09/25/18 10:00 76 70 18 09/25/18 09:28 76 09/25/18 09:27 76 09/25/18 09:25 76 09/25/18 08:17 71 18 09/25/18 08:16 09/25/18 07:39 97.5 F L 18 09/25/18 04:48 98.0 F 73 18 09/24/18 23:10 98.0 F 88 18 09/24/18 20:36 09/24/18 20:20 87 09/24/18 19:48 18 09/24/18 19:26 98.0 F 87 20 09/24/18 17:15 98.0 F 51 L 12 09/24/18 14:09 97.9 F 62 16 BP BP Pulse Ox 09/25/18 11:41 117/63 09/25/18 10:00 09/25/18 09:28 109/59 09/25/18 09:27 109/59 09/25/18 09:25 109/59 09/25/18 08:17 09/25/18 08:16 99 09/25/18 07:39 109/59 09/25/18 04:48 126/76 99 09/24/18 23:10 153/90 97 09/24/18 20:36 96 09/24/18 20:20 09/24/18 19:48 09/24/18 19:26 132/70 97 09/24/18 17:15 117/60 96 09/24/18 14:09 122/61 100 - Physical Examination General: No Apparent Distress HEENT: Positive: PERRL Neck: Positive: trachea midline Cardiac: Positive: Reg Rate and Rhythm Lungs: Positive: Decreased Breath Sounds Neuro: Positive: Grossly Intact Abdomen: Positive: Soft Extremities: Present: +2 Edema - Labs and Meds CBC 09/25/18 Range/Units 04:34 WBC 3.6 L (4.5-11.0) K/mm3 RBC 3.03 L (3.65-5.03) M/mm3 Hgb 10.6 (10.1-14.3) gm/dl Hct 31.6 (30.3-42.9) % Plt Count 182 (140-440) K/mm3 Lymph # 0.2 L (1.2-5.4) K/mm3 [place] # 0.5 (0.0-0.8) K/mm3 Eos # 0.0 (0.0-0.4) K/mm3 Baso # 0.0 (0.0-0.1) K/mm3 Comprehensive Metabolic Panel 09/25/18 Range/Units 04:34 Sodium 137 (137-145) mmol/L Potassium 3.5 L D (3.6-5.0) mmol/L Chloride 95.3 L (98-107) mmol/L Carbon Dioxide 31 H (22-30) mmol/L BUN 26 H (7-17) mg/dL Creatinine 1.3 H (0.7-1.2) mg/dL Glucose 93 (65-100) mg/dL Calcium 8.2 L (8.4-10.2) mg/dL
--- NOTE | 2018-09-25 13:09 | Progress Note ---
Assessment and Plan Assessment and plan: Acute on chronic systolic CHF Cardiology to increase Lasix and add metolazone Continue daily weights, strict I and O's and free water restriction. 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 Decreased Imdur with no relief Obtain CT scan of the head for further evaluation. Acute on chronic resp failure Supplemental Oxygen Ischemic cardiomyopathy EF 10-15% Chest pain cardiac evaluation Non cardiac chest pain History of DVT left cephalic vein and left int jugular vein On Eliquis CAD s/p CABG PAF Continue Eliquis COPD On home Oxygen Morbid Obesity I counseled her on losing weight Full code status History Interval history: Patient is 67-year-old female with history of HTN,CAD and s/p CABG X3 presented with chest pain. She was seen and evaluated in ED. For chest pain a V/Q scan was done, low propability of pulmonary embolism. She was admitted , evaluated by cardiology. She is diagnosed with acute on chronic systolic CHF , started on Lasix, Milrinone drip. Eliquis continued for PAF and history of DVT. Her EF is 10-15% from Echo 09/07/18. Hospitalist Physical - Constitutional Vitals: Temp Pulse Resp BP Pulse Ox 97.6 F 70 18 117/63 99 09/25/18 11:41 09/25/18 10:00 09/25/18 11:41 09/25/18 11:41 09/25/18 08:16 General appearance: Present: no acute distress - EENT Eyes: Present: PERRL, EOM intact ENT: hearing intact, clear oral mucosa, dentition normal - Neck Neck: Present: supple, normal ROM - Respiratory Respiratory effort: normal Respiratory: bilateral: CTA - Cardiovascular Rhythm: regular Heart Sounds: Present: S1 & S2. Absent: gallop, rub - Extremities Extremities: no ischemia, No edema, Full ROM - Abdominal General gastrointestinal: soft, non-tender, non-distended, normal bowel sounds - Integumentary Integumentary: Present: clear, warm, dry - Neurologic Neurologic: CNII-XII intact, moves all extremities Results - Labs CBC & Chem 7: 09/25/18 04:34 09/25/18 04:34 Labs: Laboratory Last Values WBC 3.6 K/mm3 (4.5-11.0) L 09/25/18 04:34 RBC 3.03 M/mm3 (3.65-5.03) L 09/25/18 04:34 Hgb 10.6 gm/dl (10.1-14.3) 09/25/18 04:34 Hct 31.6 % (30.3-42.9) 09/25/18 04:34 MCV 104 fl (79-97) H 09/25/18 04:34 MCH 35 pg (28-32) H 09/25/18 04:34 MCHC 34 % (30-34) 09/25/18 04:34 RDW 15.3 % (13.2-15.2) H 09/25/18 04:34 Plt Count 182 K/mm3 (140-440) 09/25/18 04:34 Lymph % (Auto) 5.3 % (13.4-35.0) L 09/25/18 04:34 [place] % (Auto) 14.8 % (0.0-7.3) H 09/25/18 04:34 Eos % (Auto) 0.9 % (0.0-4.3) 09/25/18 04:34 Baso % (Auto) 0.4 % (0.0-1.8) 09/25/18 04:34 Lymph # 0.2 K/mm3 (1.2-5.4) L 09/25/18 04:34 [place] # 0.5 K/mm3 (0.0-0.8) 09/25/18 04:34 Eos # 0.0 K/mm3 (0.0-0.4) 09/25/18 04:34 Baso # 0.0 K/mm3 (0.0-0.1) 09/25/18 04:34 Seg Neutrophils % 78.6 % (40.0-70.0) H 09/25/18 04:34 Seg Neutrophils # 2.8 K/mm3 (1.8-7.7) 09/25/18 04:34 PT 14.1 Sec. (12.2-14.9) 09/20/18 09:24 INR 1.03 (0.87-1.13) 09/20/18 09:24 APTT 28.7 Sec. (24.2-36.6) 09/20/18 09:24 1953.89 ng/mlDDU (0-234) H 09/20/18 09:24 Sodium 137 mmol/L (137-145) 09/25/18 04:34 Potassium 3.5 mmol/L (3.6-5.0) L D 09/25/18 04:34 Chloride 95.3 mmol/L (98-107) L 09/25/18 04:34 Carbon Dioxide 31 mmol/L (22-30) H 09/25/18 04:34 14 mmol/L 09/25/18 04:34 BUN 26 mg/dL (7-17) H 09/25/18 04:34 1.3 mg/dL (0.7-1.2) H 09/25/18 04:34 Estimated GFR 49 ml/min 09/25/18 04:34 20 % 09/25/18 04:34 Glucose 93 mg/dL (65-100) 09/25/18 04:34 5.5 % (4-6) 09/20/18 09:24 Calcium 8.2 mg/dL (8.4-10.2) L 09/25/18 04:34 Magnesium 1.90 mg/dL (1.7-2.3) 09/20/18 09:24 0.50 mg/dL (0.1-1.2) 09/21/18 08:18 < 0.2 mg/dL (0-0.2) 09/20/18 09:24 AST 32 units/L (5-40) 09/21/18 08:18 ALT 16 units/L (7-56) 09/21/18 08:18 91 units/L (35-129) 09/21/18 08:18 230 units/L (30-135) H 09/20/18 09:24 CK-MB (CK-2) 3.4 ng/mL (0.0-4.0) 09/20/18 09:24 CK-MB (CK-2) Rel Index 1.4 (0-4) 09/20/18 09:24 0.014 ng/mL (0.00-0.029) 09/20/18 09:24 NT-Pro-B Natriuret Pep 8916 pg/mL (0-900) H 09/20/18 09:24 5.2 g/dL (6.3-8.2) L 09/21/18 08:18 1.8 g/dL (3.9-5) L 09/21/18 08:18 0.5 % 09/21/18 08:18 Active Medications - Current Medications Current Medications: Generic Name Dose Route Start Last Admin Trade Name Freq PRN Reason Stop Dose Admin Acetaminophen 650 mg 09/20/18 21:31 09/22/18 17:31 Tylenol PO 650 mg Q4H PRN Administration Pain MILD(1-3)/Fever >100.5/VILLAVICENCIO Albuterol 2.5 mg 09/20/18 21:47 Proventil IH Q4HRT PRN Wheezing Albuterol 2.5 mg 09/25/18 08:00 09/25/18 08:16 Proventil IH 2.5 mg BIDRT RADHA Administration Apixaban 5 mg 09/20/18 22:00 09/25/18 09:27 Eliquis PO 5 mg Q12HR RADHA Administration Protocol Aspirin 81 mg 09/21/18 10:00 09/25/18 09:26 Halfprin Ec PO 81 mg DAILY RADHA Administration Budesonide 0.5 mg 09/25/18 08:00 09/25/18 08:16 Pulmicort IH 0.5 mg Q12HRT RADHA Administration Bupropion HCl 150 mg 09/20/18 22:00 09/25/18 09:26 Wellbutrin Sr PO 150 mg BID RADHA Administration Carvedilol 3.125 mg 09/20/18 22:00 09/25/18 09:28 Coreg PO 3.125 mg BID RADHA Administration Cyclobenzaprine HCl 10 mg 09/20/18 21:27 09/25/18 09:30 Flexeril PO 10 mg TID PRN Administration Muscle Spasm Diphenhydramine HCl 25 mg 09/20/18 22:00 09/25/18 09:27 Benadryl PO 25 mg DAILY RADHA Administration Furosemide 40 mg 09/21/18 18:00 09/25/18 06:21 Lasix IV 40 mg 0600,1800 RADHA Administration Furosemide 60 mg 09/25/18 18:00 Lasix IV 0600,1800 RADHA Hydralazine HCl 25 mg 09/20/18 22:00 09/25/18 06:21 Apresoline PO 25 mg Q8HR RADHA Administration Hydromorphone HCl 0.5 mg 09/20/18 21:31 09/24/18 19:48 Dilaudid IV 0.5 mg Q3H PRN Administration Pain , Severe (7-10) Milrinone Lactate/Dextrose 20 mg in 100 mls @ 13.624 mls/hr 09/25/18 13:00 Milrinone-D5w 20 Mg/100 Ml IV 09/27/18 12:59 TITR RADHA 0.375 MCG/KG/MIN Ibuprofen 600 mg 09/20/18 21:31 09/23/18 09:27 Ibuprofen PO 600 mg Q6H PRN Administration Pain, Mild (1-3) Metolazone 5 mg 09/25/18 13:00 Zaroxolyn PO QDAY RADHA Ondansetron HCl 4 mg 09/20/18 21:31 09/24/18 18:46 Zofran IV 4 mg Q8H PRN Administration Nausea And Vomiting Pantoprazole Sodium 40 mg 09/21/18 10:00 09/25/18 09:26 Protonix PO 40 mg QDAY RADHA Administration Polyethylene Glycol 17 gm 09/20/18 21:27 Miralax 3350 PO BID PRN Constipation Sertraline HCl 50 mg 09/20/18 22:00 09/25/18 09:27 Zoloft PO 50 mg DAILY RADHA Administration Sodium Chloride 10 ml 09/20/18 22:00 09/24/18 21:45 Sodium Chloride Flush Syringe 10 Ml IV 10 ml BID RADHA Administration Sodium Chloride 10 ml 09/20/18 21:31 Sodium Chloride Flush Syringe 10 Ml IV PRN PRN LINE FLUSH Spironolactone 25 mg 09/20/18 22:00 09/25/18 09:27 Aldactone PO 25 mg QDAY RADHA Administration
[2018-09-25] MEDS: MILRINONE-D5W 20 MG/100 ML 20 MG/100 ML BAG IV SCH ×2 (13:39→22:38)
[2018-09-25] MEDS: ZAROXOLYN PO SCH (13:39)
[2018-09-25] MEDS: ZOFRAN IV PRN (13:42)
[2018-09-25] MEDS: SODIUM CHLORIDE FLUSH SYRINGE 10 ML IV SCH ×2 (13:59→22:40)
--- NOTE | 2018-09-25 17:18 | Cat Scan Report ---
PROCEDURE: CT head without contrast. TECHNIQUE: Computerized tomography of the head was performed without contrast material. CT DOSE LENGTH PRODUCT: 1727.5 mGycm HISTORY: Headache. COMPARISONS: CT head 09/09/2018. FINDINGS: There is mild cerebral atrophy. There is an old lacunar infarct in the right basal ganglia. There are no mass lesions. There is no intracranial hemorrhage. The calvarium appears intact. There is opacifi cation of many of the mastoid air cells bilaterally. The paranasal sinuses are clear as far as visual ized. IMPRESSION: Mild cerebral atrophy and old right basal ganglia infarct. Bilateral mastoiditis. This document is electronically signed by Sanjay Trammell MD., September 25 2018 05:16:27 PM ET
[2018-09-25] MEDS: DILAUDID IV PRN (19:36)
[2018-09-26] MEDS: APRESOLINE PO SCH ×2 (05:28→22:43)
[2018-09-26] MEDS: LASIX IV SCH (05:28)
[2018-09-26] MEDS: DILAUDID IV PRN (05:29)
[2018-09-26] MEDS: MILRINONE-D5W 20 MG/100 ML 20 MG/100 ML BAG IV SCH ×2 (05:45→22:41)
[2018-09-26] MEDS: PROVENTIL IH SCH ×2 (09:05→22:00)
[2018-09-26] MEDS: PULMICORT IH SCH ×2 (09:05→22:00)
[2018-09-26] MEDS: ZAROXOLYN PO SCH (09:50)
[2018-09-26] MEDS: WELLBUTRIN SR PO SCH ×2 (09:50→22:42)
[2018-09-26] MEDS: COREG PO SCH ×2 (09:50→22:43)
[2018-09-26] MEDS: ELIQUIS PO SCH ×2 (09:50→22:42)
[2018-09-26] MEDS: PROTONIX PO SCH (09:50)
[2018-09-26] MEDS: ALDACTONE PO SCH (09:50)
[2018-09-26] MEDS: HALFPRIN EC PO SCH (09:50)
[2018-09-26] MEDS: ZOLOFT PO SCH (09:50)
[2018-09-26] MEDS: BENADRYL PO SCH (09:51)
[2018-09-26] MEDS: SODIUM CHLORIDE FLUSH SYRINGE 10 ML IV SCH ×2 (09:51→22:43)
[2018-09-26] MEDS: TYLENOL PO PRN (09:51)
[2018-09-26] MEDS: ZOFRAN IV PRN (09:51)
--- NOTE | 2018-09-26 10:21 | Progress Note ---
Assessment and Plan Chronic systolic heart failure Acute renal failure Hx of LUE DVT Hx of coronary artery disease cardiac cath 03/2018 revealed patent SVG to LAD, patent SVG to OM, patent SVG to PDA and patent diagonal stent, LVEF 10-15%. Hx of Ischemic cardiomyopathy ejection fraction 10-15% by echo 08/2018 Presence of single chamber cardiac defibrillator underlying paroxysmal atrial fibrillation previously treated with eliquis for oral anticoagulation therapy. Tobacco abuse Recommend: Fluid/sodium restriction. Daily weight. Continue medical therapy for chronic systolic heart failure, coronary artery disease and paroxysmal Afib. Subjective Date of service: 09/26/18 Interval history: Restarted on IV milrinone. Patient reports she is diuresing well. Objective Vital Signs Temp Pulse Pulse Resp Resp BP Pulse Ox 09/26/18 07:59 18 120/55 09/26/18 05:29 20 09/26/18 05:14 98.2 F 73 20 136/69 96 09/25/18 23:45 98.3 F 65 20 127/49 94 09/25/18 21:37 72 20 09/25/18 21:16 98 09/25/18 21:15 70 20 09/25/18 20:56 72 09/25/18 20:30 97.8 F 90 20 141/76 90 09/25/18 19:36 20 09/25/18 17:31 98.1 F 18 135/71 09/25/18 13:33 72 117/63 09/25/18 11:41 97.6 F 18 117/63 - Physical Examination General: No Apparent Distress HEENT: Positive: PERRL Neck: Positive: trachea midline Cardiac: Positive: irregularly irregular Lungs: Positive: Decreased Breath Sounds Neuro: Positive: Grossly Intact Abdomen: Positive: Soft Skin: Positive: Clear Extremities: Present: +2 Edema
--- NOTE | 2018-09-26 13:10 | Progress Note ---
Assessment and Plan Assessment and plan: Acute on chronic systolic CHF Cardiology to increase Lasix and add metolazone Continue daily weights, strict I and O's and free water restriction. 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 CT scan reveals mastoiditis. Start IV antibiotics. Acute on chronic resp failure Supplemental Oxygen Ischemic cardiomyopathy EF 10-15% Chest pain cardiac evaluation Non cardiac chest pain History of DVT left cephalic vein and left int jugular vein On Eliquis CAD s/p CABG PAF Continue Eliquis COPD On home Oxygen Morbid Obesity I counseled her on losing weight Full code status History Interval history: Patient is 67-year-old female with history of HTN,CAD and s/p CABG X3 presented with chest pain. She was seen and evaluated in ED. For chest pain a V/Q scan was done, low propability of pulmonary embolism. She was admitted , evaluated by cardiology. She is diagnosed with acute on chronic systolic CHF , started on Lasix, Milrinone drip. Eliquis continued for PAF and history of DVT. Her EF is 10-15% from Echo 09/07/18. The patient complains of headache, sinus pressure Hospitalist Physical - Constitutional Vitals: Temp Pulse Resp BP Pulse Ox 98.2 F 73 18 120/55 96 09/26/18 05:14 09/26/18 05:14 09/26/18 07:59 09/26/18 07:59 09/26/18 05:14 General appearance: Present: no acute distress - EENT Eyes: Present: PERRL, EOM intact ENT: hearing intact, clear oral mucosa, dentition normal - Neck Neck: Present: supple, normal ROM - Respiratory Respiratory effort: normal Respiratory: bilateral: CTA - Cardiovascular Rhythm: regular Heart Sounds: Present: S1 & S2. Absent: gallop, rub - Extremities Extremities: no ischemia, No edema, Full ROM - Abdominal General gastrointestinal: soft, non-tender, non-distended, normal bowel sounds - Integumentary Integumentary: Present: clear, warm, dry - Neurologic Neurologic: CNII-XII intact, moves all extremities Results - Labs CBC & Chem 7: 09/25/18 04:34 09/25/18 04:34 Labs: Laboratory Last Values WBC 3.6 K/mm3 (4.5-11.0) L 09/25/18 04:34 RBC 3.03 M/mm3 (3.65-5.03) L 09/25/18 04:34 Hgb 10.6 gm/dl (10.1-14.3) 09/25/18 04:34 Hct 31.6 % (30.3-42.9) 09/25/18 04:34 MCV 104 fl (79-97) H 09/25/18 04:34 MCH 35 pg (28-32) H 09/25/18 04:34 MCHC 34 % (30-34) 09/25/18 04:34 RDW 15.3 % (13.2-15.2) H 09/25/18 04:34 Plt Count 182 K/mm3 (140-440) 09/25/18 04:34 Lymph % (Auto) 5.3 % (13.4-35.0) L 09/25/18 04:34 [place] % (Auto) 14.8 % (0.0-7.3) H 09/25/18 04:34 Eos % (Auto) 0.9 % (0.0-4.3) 09/25/18 04:34 Baso % (Auto) 0.4 % (0.0-1.8) 09/25/18 04:34 Lymph # 0.2 K/mm3 (1.2-5.4) L 09/25/18 04:34 [place] # 0.5 K/mm3 (0.0-0.8) 09/25/18 04:34 Eos # 0.0 K/mm3 (0.0-0.4) 09/25/18 04:34 Baso # 0.0 K/mm3 (0.0-0.1) 09/25/18 04:34 Seg Neutrophils % 78.6 % (40.0-70.0) H 09/25/18 04:34 Seg Neutrophils # 2.8 K/mm3 (1.8-7.7) 09/25/18 04:34 PT 14.1 Sec. (12.2-14.9) 09/20/18 09:24 INR 1.03 (0.87-1.13) 09/20/18 09:24 APTT 28.7 Sec. (24.2-36.6) 09/20/18 09:24 1953.89 ng/mlDDU (0-234) H 09/20/18 09:24 Sodium 137 mmol/L (137-145) 09/25/18 04:34 Potassium 3.5 mmol/L (3.6-5.0) L D 09/25/18 04:34 Chloride 95.3 mmol/L (98-107) L 09/25/18 04:34 Carbon Dioxide 31 mmol/L (22-30) H 09/25/18 04:34 14 mmol/L 09/25/18 04:34 BUN 26 mg/dL (7-17) H 09/25/18 04:34 1.3 mg/dL (0.7-1.2) H 09/25/18 04:34 Estimated GFR 49 ml/min 09/25/18 04:34 20 % 09/25/18 04:34 Glucose 93 mg/dL (65-100) 09/25/18 04:34 5.5 % (4-6) 09/20/18 09:24 Calcium 8.2 mg/dL (8.4-10.2) L 09/25/18 04:34 Magnesium 1.90 mg/dL (1.7-2.3) 09/20/18 09:24 0.50 mg/dL (0.1-1.2) 09/21/18 08:18 < 0.2 mg/dL (0-0.2) 09/20/18 09:24 AST 32 units/L (5-40) 09/21/18 08:18 ALT 16 units/L (7-56) 09/21/18 08:18 91 units/L (35-129) 09/21/18 08:18 230 units/L (30-135) H 09/20/18 09:24 CK-MB (CK-2) 3.4 ng/mL (0.0-4.0) 09/20/18 09:24 CK-MB (CK-2) Rel Index 1.4 (0-4) 09/20/18 09:24 0.014 ng/mL (0.00-0.029) 09/20/18 09:24 NT-Pro-B Natriuret Pep 8916 pg/mL (0-900) H 09/20/18 09:24 5.2 g/dL (6.3-8.2) L 09/21/18 08:18 1.8 g/dL (3.9-5) L 09/21/18 08:18 0.5 % 09/21/18 08:18 Active Medications - Current Medications Current Medications: Generic Name Dose Route Start Last Admin Trade Name Freq PRN Reason Stop Dose Admin Acetaminophen 650 mg 09/20/18 21:31 09/26/18 09:51 Tylenol PO 650 mg Q4H PRN Administration Pain MILD(1-3)/Fever >100.5/VILLAVICENCIO Albuterol 2.5 mg 09/20/18 21:47 Proventil IH Q4HRT PRN Wheezing Albuterol 2.5 mg 09/25/18 08:00 09/26/18 09:05 Proventil IH 2.5 mg BIDRT RADHA Administration Apixaban 5 mg 09/20/18 22:00 09/26/18 09:50 Eliquis PO 5 mg Q12HR RADHA Administration Protocol Aspirin 81 mg 09/21/18 10:00 09/26/18 09:50 Halfprin Ec PO 81 mg DAILY RADHA Administration Budesonide 0.5 mg 09/25/18 08:00 09/26/18 09:05 Pulmicort IH 0.5 mg Q12HRT RADHA Administration Bupropion HCl 150 mg 09/20/18 22:00 09/26/18 09:50 Wellbutrin Sr PO 150 mg BID RADHA Administration Carvedilol 3.125 mg 09/20/18 22:00 09/26/18 09:50 Coreg PO 3.125 mg BID RADHA Administration Cyclobenzaprine HCl 10 mg 09/20/18 21:27 09/25/18 09:30 Flexeril PO 10 mg TID PRN Administration Muscle Spasm Diphenhydramine HCl 25 mg 09/20/18 22:00 09/26/18 09:51 Benadryl PO 25 mg DAILY RADHA Administration Furosemide 60 mg 09/25/18 18:00 09/26/18 05:28 Lasix IV 60 mg 0600,1800 RDAHA Administration Hydralazine HCl 25 mg 09/20/18 22:00 09/26/18 05:28 Apresoline PO 25 mg Q8HR RADHA Administration Hydromorphone HCl 0.5 mg 09/20/18 21:31 09/26/18 05:29 Dilaudid IV 0.5 mg Q3H PRN Administration Pain , Severe (7-10) Milrinone Lactate/Dextrose 20 mg in 100 mls @ 13.624 mls/hr 09/25/18 13:00 05:45 Milrinone-D5w 20 Mg/100 Ml IV 09/27/18 12:59 0.375 mcg/kg/min TITR RADHA 13.624 mls/hr Administration 0.375 MCG/KG/MIN Ibuprofen 600 mg 09/20/18 21:31 09/23/18 09:27 Ibuprofen PO 600 mg Q6H PRN Administration Pain, Mild (1-3) Metolazone 5 mg 09/25/18 13:00 09/26/18 09:50 Zaroxolyn PO 5 mg QDAY RADHA Administration Ondansetron HCl 4 mg 09/20/18 21:31 09/26/18 09:51 Zofran IV 4 mg Q8H PRN Administration Nausea And Vomiting Pantoprazole Sodium 40 mg 09/21/18 10:00 09/26/18 09:50 Protonix PO 40 mg QDAY RADHA Administration Polyethylene Glycol 17 gm 09/20/18 21:27 Miralax 3350 PO BID PRN Constipation Sertraline HCl 50 mg 09/20/18 22:00 09/26/18 09:50 Zoloft PO 50 mg DAILY RADHA Administration Sodium Chloride 10 ml 09/20/18 22:00 09/26/18 09:51 Sodium Chloride Flush Syringe 10 Ml IV 10 ml BID RADHA Administration Sodium Chloride 10 ml 09/20/18 21:31 Sodium Chloride Flush Syringe 10 Ml IV PRN PRN LINE FLUSH Spironolactone 25 mg 09/20/18 22:00 09/26/18 09:50 Aldactone PO 25 mg QDAY RADHA Administration Nutrition/Malnutrition Assess - Dietary Evaluation Nutrition/Malnutrition Findings: Nutrition Notes Start: 09/26/18 09:39 Freq: Status: Active Protocol: Document 09/26/18 09:39 LP (Rec: 09/26/18 09:47 LP [id number]) Nutrition Notes Need for Assessment generated from: LOS Initial or Follow up Assessment Current Diagnosis COPD,Hypertension,Heart Failure,Stroke Other Pertinent Diagnosis AMI Current Diet Cardiac Consistent CHO Labs/Tests Reviewed Pertinent Medications Reviewed Height 5 ft Weight 119.4 kg [place] Body Weight (kg) 45.45 BMI 51.4 Subjective/Other Information Screen for LOS. Pt states eating well [employer] and not eating well in the hospital due to food choices. Pt food preferences noted. Burn Absent Trauma Absent #1 Nutrition Diagnosis Inadequate oral intake Etiology dislike of food choices As Evidenced by Signs and Symptoms Pt states not eating well since being admitted Is patient on ventilator? No Is Patient Ambulatory and/or Out of Bed Yes REE-([place]. Jeor-ambulatory/OOB) [ 2139.150 [id number]] Kcal/Kg value to use for calculation 15 Approximate Energy Requirements Using 1791 kcal/Kg Calculation Used for Recommendations Kcal/kg Additional Notes Protein needs are 64-77g (1-1. 2g/kg using 63.84kg adjusted wt) Fluid needs are 1ml/kcal Nutrition Intervention Change Diet Order: Continue Add Supplement/Snack (indicate name/kcal Ensure High protein BID /protein ) Provides kCal: 320 Provides Protein (gm) 32 Goal #1 Meet at least 80% of kcal and protein needs Anticipated Discharge Needs: Cardiac Follow-Up By: 09/30/18 Additional Comments Follow for intakes
[2018-09-27] MEDS: ZOFRAN IV PRN ×2 (01:11→09:28)
[2018-09-27] MEDS: DILAUDID IV PRN ×3 (01:12→16:41)
[2018-09-27] MEDS: MILRINONE-D5W 20 MG/100 ML 20 MG/100 ML BAG IV SCH (05:29)
[2018-09-27] MEDS: LASIX IV SCH ×3 (05:31→17:03)
[2018-09-27] MEDS: APRESOLINE PO SCH ×4 (05:31→21:32)
[2018-09-27] MEDS: LEVAQUIN 500MG/100ML 500 MG/100 ML BAG IV SCH ×2 (07:31→10:24)
[2018-09-27] MEDS: PULMICORT IH SCH ×2 (08:16→20:51)
[2018-09-27] MEDS: PROVENTIL IH SCH ×2 (08:16→20:52)
[2018-09-27] MEDS: MIRALAX 3350 PO PRN (09:34)
--- NOTE | 2018-09-27 09:43 | Progress Note ---
Assessment and Plan 1. Chronic combine systolic and diastolic heart failure 2. Dilated ischemic cardiomyopathy left ventricular ejection fraction 10-15% 3. Coronary artery disease status post CABG 4. Acute renal failure 5. Paroxysmal atrial fibrillation 6. Presence of the ICD 7. History of DVT Plan Patient on IV milrinone drip continues to diurese well continue present management with daily weights Subjective Date of service: 09/27/18 Interval history: No cardiac symptoms Objective Vital Signs Temp Pulse Resp BP Pulse Ox 09/27/18 05:23 97.5 F L 09/27/18 05:22 86 20 141/72 96 09/26/18 23:42 97.6 F 09/26/18 23:39 72 20 118/60 94 09/26/18 21:58 98 09/26/18 20:45 77 09/26/18 20:00 97.7 F 09/26/18 19:59 77 20 127/63 94 09/26/18 12:00 93 H 09/26/18 11:38 97.4 F L 18 129/72 - Physical Examination General: No Apparent Distress, Other (Obese) HEENT: Positive: PERRL Neck: Positive: trachea midline Cardiac: Positive: Reg Rate and Rhythm, S1/S2, S3, S4, PMI, Dilated, Laterally Displaced Lungs: Positive: clear to auscultation, No Wheeze, Rales, Rhonchi Neuro: Positive: Grossly Intact Abdomen: Positive: Soft Skin: Positive: Clear Extremities: Present: +2 Edema - Imaging and Cardiology EKG: report reviewed (A fi\b 67 Low voltage)
[2018-09-27] MEDS: WELLBUTRIN SR PO SCH ×2 (10:24→21:32)
[2018-09-27] MEDS: COREG PO SCH ×2 (10:24→21:32)
[2018-09-27] MEDS: HALFPRIN EC PO SCH (10:24)
[2018-09-27] MEDS: PROTONIX PO SCH (10:24)
[2018-09-27] MEDS: ELIQUIS PO SCH (10:24)
[2018-09-27] MEDS: BENADRYL PO SCH (10:24)
[2018-09-27] MEDS: ZOLOFT PO SCH ×2 (10:24→10:45)
[2018-09-27] MEDS: ALDACTONE PO SCH (10:26)
[2018-09-27] MEDS: ZAROXOLYN PO SCH (10:27)
[2018-09-27] MEDS: SODIUM CHLORIDE FLUSH SYRINGE 10 ML IV SCH ×2 (10:27→22:37)
--- NOTE | 2018-09-27 10:52 | Progress Note ---
Assessment and Plan Assessment and plan: Acute on chronic combined systolic and diastolic heart failure Continue Lasix and metolazone Continue daily weights, strict I and O's and free water restriction. 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 CT scan reveals mastoiditis. Continue IV Levaquin. Acute on chronic resp failure Supplemental Oxygen Dilated Ischemic cardiomyopathy EF 10-15% Coronary artery disease status post CABG History of DVT left cephalic vein and left int jugular vein On Eliquis PAF Continue Eliquis COPD On home Oxygen Morbid Obesity Diet, exercise Deconditioning. PT evaluation. Full code status History Interval history: Patient is 67-year-old female with history of HTN,CAD and s/p CABG X3 presented with chest pain. She was seen and evaluated in ED. For chest pain a V/Q scan was done, low propability of pulmonary embolism. She was admitted , evaluated by cardiology. She is diagnosed with acute on chronic systolic CHF , started on Lasix, Milrinone drip. Eliquis continued for PAF and history of DVT. Her EF is 10-15% from Echo 09/07/18. The patient complains of headache, sinus pressure Hospitalist Physical - Constitutional Vitals: Temp Pulse Resp BP Pulse Ox 97.5 F L 71 20 121/67 98 09/27/18 05:23 09/27/18 10:26 09/27/18 05:22 09/27/18 10:26 09/27/18 10:23 General appearance: Present: no acute distress - EENT Eyes: Present: PERRL, EOM intact ENT: hearing intact, clear oral mucosa, dentition normal - Neck Neck: Present: supple, normal ROM - Respiratory Respiratory effort: normal Respiratory: bilateral: CTA - Cardiovascular Rhythm: regular Heart Sounds: Present: S1 & S2. Absent: gallop, rub - Extremities Extremities: no ischemia, No edema, Full ROM - Abdominal General gastrointestinal: soft, non-tender, non-distended, normal bowel sounds - Integumentary Integumentary: Present: clear, warm, dry - Neurologic Neurologic: CNII-XII intact, moves all extremities Results - Labs CBC & Chem 7: 09/25/18 04:34 09/25/18 04:34 Labs: Laboratory Last Values WBC 3.6 K/mm3 (4.5-11.0) L 09/25/18 04:34 RBC 3.03 M/mm3 (3.65-5.03) L 09/25/18 04:34 Hgb 10.6 gm/dl (10.1-14.3) 09/25/18 04:34 Hct 31.6 % (30.3-42.9) 09/25/18 04:34 MCV 104 fl (79-97) H 09/25/18 04:34 MCH 35 pg (28-32) H 09/25/18 04:34 MCHC 34 % (30-34) 09/25/18 04:34 RDW 15.3 % (13.2-15.2) H 09/25/18 04:34 Plt Count 182 K/mm3 (140-440) 09/25/18 04:34 Lymph % (Auto) 5.3 % (13.4-35.0) L 09/25/18 04:34 [place] % (Auto) 14.8 % (0.0-7.3) H 09/25/18 04:34 Eos % (Auto) 0.9 % (0.0-4.3) 09/25/18 04:34 Baso % (Auto) 0.4 % (0.0-1.8) 09/25/18 04:34 Lymph # 0.2 K/mm3 (1.2-5.4) L 09/25/18 04:34 [place] # 0.5 K/mm3 (0.0-0.8) 09/25/18 04:34 Eos # 0.0 K/mm3 (0.0-0.4) 09/25/18 04:34 Baso # 0.0 K/mm3 (0.0-0.1) 09/25/18 04:34 Seg Neutrophils % 78.6 % (40.0-70.0) H 09/25/18 04:34 Seg Neutrophils # 2.8 K/mm3 (1.8-7.7) 09/25/18 04:34 PT 14.1 Sec. (12.2-14.9) 09/20/18 09:24 INR 1.03 (0.87-1.13) 09/20/18 09:24 APTT 28.7 Sec. (24.2-36.6) 09/20/18 09:24 1953.89 ng/mlDDU (0-234) H 09/20/18 09:24 Sodium 137 mmol/L (137-145) 09/25/18 04:34 Potassium 3.5 mmol/L (3.6-5.0) L D 09/25/18 04:34 Chloride 95.3 mmol/L (98-107) L 09/25/18 04:34 Carbon Dioxide 31 mmol/L (22-30) H 09/25/18 04:34 14 mmol/L 09/25/18 04:34 BUN 26 mg/dL (7-17) H 09/25/18 04:34 1.3 mg/dL (0.7-1.2) H 09/25/18 04:34 Estimated GFR 49 ml/min 09/25/18 04:34 20 % 09/25/18 04:34 Glucose 93 mg/dL (65-100) 09/25/18 04:34 5.5 % (4-6) 09/20/18 09:24 Calcium 8.2 mg/dL (8.4-10.2) L 09/25/18 04:34 Magnesium 1.90 mg/dL (1.7-2.3) 09/20/18 09:24 0.50 mg/dL (0.1-1.2) 09/21/18 08:18 < 0.2 mg/dL (0-0.2) 09/20/18 09:24 AST 32 units/L (5-40) 09/21/18 08:18 ALT 16 units/L (7-56) 09/21/18 08:18 91 units/L (35-129) 09/21/18 08:18 230 units/L (30-135) H 09/20/18 09:24 CK-MB (CK-2) 3.4 ng/mL (0.0-4.0) 09/20/18 09:24 CK-MB (CK-2) Rel Index 1.4 (0-4) 09/20/18 09:24 0.014 ng/mL (0.00-0.029) 09/20/18 09:24 NT-Pro-B Natriuret Pep 8916 pg/mL (0-900) H 09/20/18 09:24 5.2 g/dL (6.3-8.2) L 09/21/18 08:18 1.8 g/dL (3.9-5) L 09/21/18 08:18 0.5 % 09/21/18 08:18 Active Medications - Current Medications Current Medications: Generic Name Dose Route Start Last Admin Trade Name Freq PRN Reason Stop Dose Admin Acetaminophen 650 mg 09/20/18 21:31 09/26/18 09:51 Tylenol PO 650 mg Q4H PRN Administration Pain MILD(1-3)/Fever >100.5/VILLAVICENCIO Albuterol 2.5 mg 09/20/18 21:47 Proventil IH Q4HRT PRN Wheezing Albuterol 2.5 mg 09/25/18 08:00 09/27/18 08:16 Proventil IH 2.5 mg BIDRT RADHA Administration Apixaban 5 mg 09/20/18 22:00 09/27/18 10:24 Eliquis PO 5 mg Q12HR RADHA Administration Protocol Aspirin 81 mg 09/21/18 10:00 09/27/18 10:24 Halfprin Ec PO 81 mg DAILY RADHA Administration Budesonide 0.5 mg 09/25/18 08:00 09/27/18 08:16 Pulmicort IH 0.5 mg Q12HRT RADHA Administration Bupropion HCl 150 mg 09/20/18 22:00 09/27/18 10:24 Wellbutrin Sr PO 150 mg BID RADHA Administration Carvedilol 3.125 mg 09/20/18 22:00 09/27/18 10:24 Coreg PO 3.125 mg BID RADHA Administration Cyclobenzaprine HCl 10 mg 09/20/18 21:27 09/25/18 09:30 Flexeril PO 10 mg TID PRN Administration Muscle Spasm Diphenhydramine HCl 25 mg 09/20/18 22:00 09/27/18 10:24 Benadryl PO 25 mg DAILY RADHA Administration Furosemide 60 mg 09/25/18 18:00 09/27/18 06:44 Lasix IV 60 mg 0600,1800 RADHA Administration Hydralazine HCl 25 mg 09/20/18 22:00 09/27/18 07:31 Apresoline PO Not Given Q8HR RADHA Hydromorphone HCl 0.5 mg 09/20/18 21:31 09/27/18 10:24 Dilaudid IV 0.5 mg Q3H PRN Administration Pain , Severe (7-10) Milrinone Lactate/Dextrose 20 mg in 100 mls @ 13.624 mls/hr 09/25/18 13:00 09/27/18 05:29 Milrinone-D5w 20 Mg/100 Ml IV 09/27/18 12:59 0.375 mcg/kg/min TITR RADHA 13.624 mls/hr Administration 0.375 MCG/KG/MIN Levofloxacin/Dextrose 500 mg in 100 mls @ 100 mls/hr 09/26/18 14:00 09/27/18 10:24 Levaquin 500mg/100ml IV 100 mls/hr Q24HR RADHA Administration Protocol Ibuprofen 600 mg 09/20/18 21:31 09/23/18 09:27 Ibuprofen PO 600 mg Q6H PRN Administration Pain, Mild (1-3) Metolazone 5 mg 09/25/18 13:00 09/27/18 10:27 Zaroxolyn PO Not Given QDAY RADHA Ondansetron HCl 4 mg 09/20/18 21:31 09/27/18 09:28 Zofran IV 4 mg Q8H PRN Administration Nausea And Vomiting Pantoprazole Sodium 40 mg 09/21/18 10:00 09/27/18 10:24 Protonix PO 40 mg QDAY RADHA Administration Polyethylene Glycol 17 gm 09/20/18 21:27 09/27/18 09:34 Miralax 3350 PO 17 gm BID PRN Administration Constipation Sertraline HCl 50 mg 09/20/18 22:00 09/27/18 10:45 Zoloft PO Not Given DAILY RADHA Sodium Chloride 10 ml 09/20/18 22:00 09/27/18 10:27 Sodium Chloride Flush Syringe 10 Ml IV 10 ml BID RADHA Administration Sodium Chloride 10 ml 09/20/18 21:31 Sodium Chloride Flush Syringe 10 Ml IV PRN PRN LINE FLUSH Spironolactone 25 mg 09/20/18 22:00 09/27/18 10:26 Aldactone PO Not Given QDAY RADHA Nutrition/Malnutrition Assess - Dietary Evaluation Nutrition/Malnutrition Findings: Nutrition Notes Start: 09/26/18 09:39 Freq: Status: Active Protocol: Document 09/26/18 09:39 LP (Rec: 09/26/18 09:47 LP [id number]) Nutrition Notes Need for Assessment generated from: LOS Initial or Follow up Assessment Current Diagnosis COPD,Hypertension,Heart Failure,Stroke Other Pertinent Diagnosis AMI Current Diet Cardiac Consistent CHO Labs/Tests Reviewed Pertinent Medications Reviewed Height 5 ft Weight 119.4 kg [place] Body Weight (kg) 45.45 BMI 51.4 Subjective/Other Information Screen for LOS. 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 Pt food preferences noted. Burn Absent Trauma Absent #1 Nutrition Diagnosis Inadequate oral intake Etiology dislike of food choices As Evidenced by Signs and Symptoms Pt states not eating well since being admitted Is patient on ventilator? No Is Patient Ambulatory and/or Out of Bed Yes REE-([place]-St. Jeor-ambulatory/OOB) [ 2139.150 NUTR.MSJOOB] Kcal/Kg value to use for calculation 15 Approximate Energy Requirements Using 1791 kcal/Kg Calculation Used for Recommendations Kcal/kg Additional Notes Protein needs are 64-77g (1-1. 2g/kg using 63.84kg adjusted wt) Fluid needs are 1ml/kcal Nutrition Intervention Change Diet Order: Continue Add Supplement/Snack (indicate name/kcal Ensure High protein BID /protein ) Provides kCal: 320 Provides Protein (gm) 32 Goal #1 Meet at least 80% of kcal and protein needs Anticipated Discharge Needs: Cardiac Follow-Up By: 09/30/18 Additional Comments Follow for intakes
--- NOTE | 2018-09-27 19:19 | Cat Scan Report ---
PROCEDURE: CT ABDOMEN PELVIS WO CON HISTORY: vomiting blood x 1 FINDINGS: Unenhanced CT of the abdomen and pelvis was performed and compared to the prior examination of February 24, 2019. There is cardiomegaly and pacing device. There is extensive subcutaneous edema. ABDOMEN: There is gastric wall thickening which could representing gastritis There is ascites which is mildly increased in comparison to the prior exam. No suspect focal hepatic lesion is seen. The spleen is normal in size. There is no focal pancreatic lesion identified. No adrenal lesion is identified. The gallbladder is distended but is otherwise within normal limits. There is no renal or ureteral calculus. There is aortic atherosclerotic change without aneurysmal loc ation of the aorta. Pelvis: There is a normal appendix. There is no evidence of diverticulitis. There has been a hysterectomy. The urinary bladder is within normal limits. There is no free air. IMPRESSION: Cardiomegaly and bilateral pleural effusions ABDOMEN: Ascites, somewhat increased the prior exam Pelvis: Normal appendix All CT scans at this location are performed using dose modulation techniques as appropriate to a perf ormed exam including the following: automated exposure control, adjustment of the mA and/or kV accord ing to patient size (this includes techniques or standardized protocols for targeted exams where dose is matched to indication/reason for exam, i.e.extremities or head; use of imaging [id number] This document is electronically signed by Roberto Carlos Michelle MD., September 27 2018 07:18:04 PM ET
[2018-09-27 19:56] LABS: Basophils % (Auto) 0.6 % (0.0-1.8); Eosinophils % (Auto) 1.1 % (0.0-4.3); Hematocrit 34.4 % (30.3-42.9); Hemoglobin 11.4 gm/dl (10.1-14.3); Lymphocytes # (Auto) 0.2 K/mm3 (1.2-5.4); Mean Corpuscular HGB Conc 33 % (30-34); Mean Corpuscular Volume 104 fl (79-97); Monocytes # (Auto) 0.6 K/mm3 (0.0-0.8); Platelet Count 213 K/mm3 (140-440); Red Cell Distribution Width 15.8 % (13.2-15.2)
[2018-09-27] MEDS: PROTONIX 80 MG in NACL 0.9% 100 ML IV SCH (21:32)
[2018-09-28] MEDS: APRESOLINE PO SCH ×3 (06:14→21:22)
[2018-09-28] MEDS: LASIX IV SCH ×2 (06:15→17:53)
[2018-09-28] MEDS: PROTONIX 80 MG in NACL 0.9% 100 ML IV SCH ×2 (06:23→21:20)
[2018-09-28] MEDS: PULMICORT IH SCH ×2 (08:36→21:32)
[2018-09-28] MEDS: PROVENTIL IH SCH ×2 (08:36→21:22)
[2018-09-28] MEDS: WELLBUTRIN SR PO SCH ×2 (09:19→21:22)
[2018-09-28] MEDS: ZOLOFT PO SCH (09:19)
[2018-09-28] MEDS: MIRALAX 3350 PO PRN (09:19)
[2018-09-28] MEDS: BENADRYL PO SCH (09:20)
[2018-09-28] MEDS: COREG PO SCH ×2 (09:22→21:22)
[2018-09-28] MEDS: ZAROXOLYN PO SCH (09:22)
[2018-09-28] MEDS: LEVAQUIN 500MG/100ML 500 MG/100 ML BAG IV SCH (09:22)
[2018-09-28] MEDS: ALDACTONE PO SCH (09:26)
[2018-09-28] MEDS: SODIUM CHLORIDE FLUSH SYRINGE 10 ML IV SCH ×2 (09:27→21:22)
[2018-09-28] MEDS: DILAUDID IV PRN (10:23)
[2018-09-28 10:56] LABS: Basophils % (Auto) 0.4 % (0.0-1.8); Eosinophils % (Auto) 0.4 % (0.0-4.3); Hematocrit 33.2 % (30.3-42.9); Hemoglobin 10.9 gm/dl (10.1-14.3); Lymphocytes # (Auto) 0.2 K/mm3 (1.2-5.4); Lymphocytes % (Auto) 4.5 % (13.4-35.0); Mean Corpuscular HGB Conc 33 % (30-34); Mean Corpuscular Volume 105 fl (79-97); Monocytes # (Auto) 0.5 K/mm3 (0.0-0.8); Monocytes % (Auto) 13.6 % (0.0-7.3); Platelet Count 205 K/mm3 (140-440); Red Blood Count 3.17 M/mm3 (3.65-5.03); Red Cell Distribution Width 15.7 % (13.2-15.2)
--- NOTE | 2018-09-28 12:51 | Progress Note ---
Assessment and Plan Assessment and plan: Hematemesis. Protonix drip. Aspirin and eliquis held. GI consultation pending. CT scan of the abdomen and pelvis with no acute findings. Acute on chronic combined systolic and diastolic heart failure Continue Lasix and metolazone Continue daily weights, strict I and O's and free water restriction. 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 CT scan reveals mastoiditis. Continue IV Levaquin. Acute on chronic resp failure Supplemental Oxygen Dilated Ischemic cardiomyopathy EF 10-15% Coronary artery disease status post CABG History of DVT left cephalic vein and left int jugular vein On Eliquis PAF Continue Eliquis COPD On home Oxygen Morbid Obesity Diet, exercise Deconditioning. PT evaluation. Full code status History Interval history: Patient is 67-year-old female with history of HTN,CAD and s/p CABG X3 presented with chest pain. She was seen and evaluated in ED. For chest pain a V/Q scan was done, low propability of pulmonary embolism. She was admitted , evaluated by cardiology. She is diagnosed with acute on chronic systolic CHF , started on Lasix, Milrinone drip. Eliquis continued for PAF and history of DVT. Her EF is 10-15% from Echo 09/07/18. This was a episode of hematemesis yesterday per nursing. Hospitalist Physical - Constitutional Vitals: Temp Pulse Resp BP Pulse Ox 97.3 F L 81 20 127/70 95 09/28/18 04:37 09/28/18 09:26 09/28/18 08:38 09/28/18 04:36 09/28/18 08:38 General appearance: Present: no acute distress - EENT Eyes: Present: PERRL, EOM intact ENT: hearing intact, clear oral mucosa, dentition normal - Neck Neck: Present: supple, normal ROM - Respiratory Respiratory effort: normal Respiratory: bilateral: CTA - Cardiovascular Rhythm: regular Heart Sounds: Present: S1 & S2. Absent: gallop, rub - Extremities Extremities: no ischemia, No edema, Full ROM - Abdominal General gastrointestinal: soft, non-tender, non-distended, normal bowel sounds - Integumentary Integumentary: Present: clear, warm, dry - Neurologic Neurologic: CNII-XII intact, moves all extremities Results - Labs CBC & Chem 7: 09/28/18 10:23 09/25/18 04:34 Labs: Laboratory Last Values WBC 3.7 K/mm3 (4.5-11.0) L 09/28/18 10:23 RBC 3.17 M/mm3 (3.65-5.03) L 09/28/18 10:23 Hgb 10.9 gm/dl (10.1-14.3) 09/28/18 10:23 Hct 33.2 % (30.3-42.9) 09/28/18 10:23 MCV 105 fl (79-97) H 09/28/18 10:23 MCH 34 pg (28-32) H 09/28/18 10:23 MCHC 33 % (30-34) 09/28/18 10:23 RDW 15.7 % (13.2-15.2) H 09/28/18 10:23 Plt Count 205 K/mm3 (140-440) 09/28/18 10:23 Lymph % (Auto) 4.5 % (13.4-35.0) L 09/28/18 10:23 [place] % (Auto) 13.6 % (0.0-7.3) H 09/28/18 10:23 Eos % (Auto) 0.4 % (0.0-4.3) 09/28/18 10:23 Baso % (Auto) 0.4 % (0.0-1.8) 09/28/18 10:23 Lymph # 0.2 K/mm3 (1.2-5.4) L 09/28/18 10:23 [place] # 0.5 K/mm3 (0.0-0.8) 09/28/18 10:23 Eos # 0.0 K/mm3 (0.0-0.4) 09/28/18 10:23 Baso # 0.0 K/mm3 (0.0-0.1) 09/28/18 10:23 Seg Neutrophils % 81.1 % (40.0-70.0) H 09/28/18 10:23 Seg Neutrophils # 3.0 K/mm3 (1.8-7.7) 09/28/18 10:23 PT 14.1 Sec. (12.2-14.9) 09/20/18 09:24 INR 1.03 (0.87-1.13) 09/20/18 09:24 APTT 28.7 Sec. (24.2-36.6) 09/20/18 09:24 1953.89 ng/mlDDU (0-234) H 09/20/18 09:24 Sodium 137 mmol/L (137-145) 09/25/18 04:34 Potassium 3.5 mmol/L (3.6-5.0) L D 09/25/18 04:34 Chloride 95.3 mmol/L (98-107) L 09/25/18 04:34 Carbon Dioxide 31 mmol/L (22-30) H 09/25/18 04:34 14 mmol/L 09/25/18 04:34 BUN 26 mg/dL (7-17) H 09/25/18 04:34 1.3 mg/dL (0.7-1.2) H 09/25/18 04:34 Estimated GFR 49 ml/min 09/25/18 04:34 20 % 09/25/18 04:34 Glucose 93 mg/dL (65-100) 09/25/18 04:34 5.5 % (4-6) 09/20/18 09:24 Calcium 8.2 mg/dL (8.4-10.2) L 09/25/18 04:34 Magnesium 1.90 mg/dL (1.7-2.3) 09/20/18 09:24 0.50 mg/dL (0.1-1.2) 09/21/18 08:18 < 0.2 mg/dL (0-0.2) 09/20/18 09:24 AST 32 units/L (5-40) 09/21/18 08:18 ALT 16 units/L (7-56) 09/21/18 08:18 91 units/L (35-129) 09/21/18 08:18 230 units/L (30-135) H 09/20/18 09:24 CK-MB (CK-2) 3.4 ng/mL (0.0-4.0) 09/20/18 09:24 CK-MB (CK-2) Rel Index 1.4 (0-4) 09/20/18 09:24 0.014 ng/mL (0.00-0.029) 09/20/18 09:24 NT-Pro-B Natriuret Pep 8916 pg/mL (0-900) H 09/20/18 09:24 5.2 g/dL (6.3-8.2) L 09/21/18 08:18 1.8 g/dL (3.9-5) L 09/21/18 08:18 0.5 % 09/21/18 08:18 Active Medications - Current Medications Current Medications: Generic Name Dose Route Start Last Admin Trade Name Freq PRN Reason Stop Dose Admin Acetaminophen 650 mg 09/20/18 21:31 09/26/18 09:51 Tylenol PO 650 mg Q4H PRN Administration Pain MILD(1-3)/Fever >100.5/VILLAVICENCIO Albuterol 2.5 mg 09/20/18 21:47 Proventil IH Q4HRT PRN Wheezing Albuterol 2.5 mg 09/25/18 08:00 09/28/18 08:36 Proventil IH 2.5 mg BIDRT RADHA Administration Budesonide 0.5 mg 09/25/18 08:00 09/28/18 08:36 Pulmicort IH 0.5 mg Q12HRT RADHA Administration Bupropion HCl 150 mg 09/20/18 22:00 09/28/18 09:19 Wellbutrin Sr PO 150 mg BID RADHA Administration Carvedilol 3.125 mg 09/20/18 22:00 09/28/18 09:22 Coreg PO 3.125 mg BID RADHA Administration Cyclobenzaprine HCl 10 mg 09/20/18 21:27 09/25/18 09:30 Flexeril PO 10 mg TID PRN Administration Muscle Spasm Diphenhydramine HCl 25 mg 09/20/18 22:00 09/28/18 09:20 Benadryl PO 25 mg DAILY RADHA Administration Furosemide 60 mg 09/25/18 18:00 09/28/18 06:15 Lasix IV 60 mg 0600,1800 RADHA Administration Hydralazine HCl 25 mg 09/20/18 22:00 09/28/18 06:14 Apresoline PO 25 mg Q8HR RADHA Administration Hydromorphone HCl 0.5 mg 09/20/18 21:31 09/28/18 10:23 Dilaudid IV 0.5 mg Q3H PRN Administration Pain , Severe (7-10) Levofloxacin/Dextrose 500 mg in 100 mls @ 100 mls/hr 09/26/18 14:00 09/28/18 09:22 Levaquin 500mg/100ml IV 100 mls/hr Q24HR RADHA Administration Protocol Pantoprazole Sodium 80 mg/ 100 mls @ 10 mls/hr 09/27/18 19:30 09/28/18 06:23 Sodium Chloride IV 8 mg/hr DIRECT RADHA 10 mls/hr Administration 8 MG/HR Metolazone 5 mg 09/25/18 13:00 09/28/18 09:22 Zaroxolyn PO 5 mg QDAY RADHA Administration Ondansetron HCl 4 mg 09/20/18 21:31 09/27/18 09:28 Zofran IV 4 mg Q8H PRN Administration Nausea And Vomiting Polyethylene Glycol 17 gm 09/20/18 21:27 09/28/18 09:19 Miralax 3350 PO 17 gm BID PRN Administration Constipation Sertraline HCl 50 mg 09/20/18 22:00 09/28/18 09:19 Zoloft PO 50 mg DAILY RADHA Administration Sodium Chloride 10 ml 09/20/18 22:00 09/28/18 09:27 Sodium Chloride Flush Syringe 10 Ml IV 10 ml BID RADHA Administration Sodium Chloride 10 ml 09/20/18 21:31 Sodium Chloride Flush Syringe 10 Ml IV PRN PRN LINE FLUSH Spironolactone 25 mg 09/20/18 22:00 09/28/18 09:26 Aldactone PO 25 mg QDAY RADHA Administration Nutrition/Malnutrition Assess - Dietary Evaluation Nutrition/Malnutrition Findings: Nutrition Notes Start: 09/26/18 09:39 Freq: Status: Active Protocol: Document 09/26/18 09:39 LP (Rec: 09/26/18 09:47 LP [id number]) Nutrition Notes Need for Assessment generated from: LOS Initial or Follow up Assessment Current Diagnosis COPD,Hypertension,Heart Failure,Stroke Other Pertinent Diagnosis AMI Current Diet Cardiac Consistent CHO Labs/Tests Reviewed Pertinent Medications Reviewed Height 5 ft Weight 119.4 kg [place] Body Weight (kg) 45.45 BMI 51.4 Subjective/Other Information Screen for LOS. 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 Pt food preferences noted. Burn Absent Trauma Absent #1 Nutrition Diagnosis Inadequate oral intake Etiology dislike of food choices As Evidenced by Signs and Symptoms Pt states not eating well since being admitted Is patient on ventilator? No Is Patient Ambulatory and/or Out of Bed Yes REE-([place]-St. Jeor-ambulatory/OOB) [ 2139.150 NUTR.MSJOOB] Kcal/Kg value to use for calculation 15 Approximate Energy Requirements Using 1791 kcal/Kg Calculation Used for Recommendations Kcal/kg Additional Notes Protein needs are 64-77g (1-1. 2g/kg using 63.84kg adjusted wt) Fluid needs are 1ml/kcal Nutrition Intervention Change Diet Order: Continue Add Supplement/Snack (indicate name/kcal Ensure High protein BID /protein ) Provides kCal: 320 Provides Protein (gm) 32 Goal #1 Meet at least 80% of kcal and protein needs Anticipated Discharge Needs: Cardiac Follow-Up By: 09/30/18 Additional Comments Follow for intakes
--- NOTE | 2018-09-28 15:30 | Gastroenterology Consultation ---
History of Present Illness - Reason for Consult Consult date: 09/28/18 Coffee ground emesis Requesting physician: EMELY CALDWELL - History of Present Illness 67-year-old female with history of HTN,CAD and s/p CABG with hx IA admitted with chest pain. GI consulted now as patient having Abd pain, N/V and single episode coffee ground emesis. Patient reports no known history of PUD though she does take a PPI She reports abd pain is periumbilical, moderate, sharp, constant, duration days, alleviated and exacerbated by nothing, associated with N/V, no melena no blood int he stool. obtained/updated/reviewed current meds Past History Past Medical History: CAD, heart failure Past Surgical History: CABG, Other (cardiac defibrillator) Social history: other Family history: no significant family history (denies FH CRC) Medications and Allergies Allergies Allergy/AdvReac Type Severity Reaction Status Date / Time lisinopril Allergy Anaphylaxis Verified 02/24/18 09:15 Penicillins Allergy Seizure Verified 02/24/18 09:15 Sulfa (Sulfonamide AdvReac Hives Verified 02/24/18 09:15 Antibiotics) Home Medications Medication Instructions Recorded Confirmed Last Taken Type Aspirin [Adult Aspirin] 81 mg PO DAILY 02/24/18 09/20/18 05/09/18 History Spironolactone [Aldactone] 25 mg PO QDAY 02/24/18 09/20/18 05/09/18 History buPROPion SR [Wellbutrin SR] 150 mg PO BID 02/24/18 09/20/18 05/09/18 History Albuterol Sulfate [Ventolin HFA] 1 puff IH Q6H PRN 30 Days 03/03/18 09/20/18 05/09/18 Rx hfa.[email or web address].[email or web address] Cyclobenzaprine [Flexeril 10 MG 10 mg PO TID PRN 05/10/18 09/20/18 05/09/18 History TAB] Diphenhydramine HCl [Allergy 25 mg PO DAILY 05/10/18 09/20/18 05/09/18 History Relief] ISOSORBIDE MONOnitrate [Imdur ER] 60 mg PO QDAY 05/10/18 09/20/18 05/09/18 History Sertraline HCl [Zoloft] 50 mg PO DAILY 05/10/18 09/20/18 05/09/18 History hydrALAZINE [Apresoline TAB] 25 mg PO Q8HR 05/10/18 09/20/18 05/09/18 History Apixaban [Eliquis] 5 mg PO Q12HR #60 tablet 07/02/18 09/20/18 Unknown Rx Furosemide [Lasix TAB] 80 mg PO DAILY #30 tablet 07/02/18 09/20/18 Unknown Rx Pantoprazole [Protonix TAB] 40 mg PO QDAY #30 tablet 07/02/18 09/20/18 Unknown Rx Polyethylene Glycol 3350 [Miralax 17 gm PO BID PRN #30 powd.pack 07/02/18 09/20/18 Unknown Rx 3350] metOLazone [Zaroxolyn] 5 mg PO QDAY #30 tablet 07/02/18 09/20/18 Unknown Rx Carvedilol [Coreg] 3.125 mg PO BID #60 tablet 09/10/18 09/20/18 Unknown Rx Active Meds: Active Medications Acetaminophen (Tylenol) 650 mg PO Q4H PRN PRN Reason: Pain MILD(1-3)/Fever >100.5/VILLAVICENCIO Last Admin: 09/26/18 09:51 Dose: 650 mg Documented by: Albuterol (Proventil) 2.5 mg IH Q4HRT PRN PRN Reason: Wheezing Albuterol (Proventil) 2.5 mg IH BIDRT [facility] Last Admin: 09/28/18 08:36 Dose: 2.5 mg Documented by: Budesonide (Pulmicort) 0.5 mg IH Q12HRT [facility] Last Admin: 09/28/18 08:36 Dose: 0.5 mg Documented by: Bupropion HCl (Wellbutrin Sr) 150 mg PO BID [facility] Last Admin: 09/28/18 09:19 Dose: 150 mg Documented by: Carvedilol (Coreg) 3.125 mg PO BID [facility] Last Admin: 09/28/18 09:22 Dose: 3.125 mg Documented by: Cyclobenzaprine HCl (Flexeril) 10 mg PO TID PRN PRN Reason: Muscle Spasm Last Admin: 09/25/18 09:30 Dose: 10 mg Documented by: Diphenhydramine HCl (Benadryl) 25 mg PO DAILY [facility] Last Admin: 09/28/18 09:20 Dose: 25 mg Documented by: Furosemide (Lasix) 60 mg IV 0600,1800 [facility] Last Admin: 09/28/18 06:15 Dose: 60 mg Documented by: Hydralazine HCl (Apresoline) 25 mg PO Q8HR [facility] Last Admin: 09/28/18 14:21 Dose: 25 mg Documented by: Hydromorphone HCl (Dilaudid) 0.5 mg IV Q3H PRN PRN Reason: Pain , Severe (7-10) Last Admin: 09/28/18 10:23 Dose: 0.5 mg Documented by: Levofloxacin/Dextrose (Levaquin 500mg/100ml) 500 mg in 100 mls @ 100 mls/hr IV Q24HR [facility]; Protocol Last Admin: 09/28/18 09:22 Dose: 100 mls/hr Documented by: Pantoprazole Sodium 80 mg/ (Sodium Chloride) 100 mls @ 10 mls/hr IV DIRECT [facility] Last Admin: 09/28/18 06:23 Dose: 8 mg/hr, 10 mls/hr Documented by: Metolazone (Zaroxolyn) 5 mg PO QDAY [facility] Last Admin: 09/28/18 09:22 Dose: 5 mg Documented by: Ondansetron HCl (Zofran) 4 mg IV Q8H PRN PRN Reason: Nausea And Vomiting Last Admin: 09/27/18 09:28 Dose: 4 mg Documented by: Polyethylene Glycol (Miralax 3350) 17 gm PO BID PRN PRN Reason: Constipation Last Admin: 09/28/18 09:19 Dose: 17 gm Documented by: Sertraline HCl (Zoloft) 50 mg PO DAILY [facility] Last Admin: 09/28/18 09:19 Dose: 50 mg Documented by: Sodium Chloride (Sodium Chloride Flush Syringe 10 Ml) 10 ml IV BID [facility] Last Admin: 09/28/18 09:27 Dose: 10 ml Documented by: Sodium Chloride (Sodium Chloride Flush Syringe 10 Ml) 10 ml IV PRN PRN PRN Reason: LINE FLUSH Spironolactone (Aldactone) 25 mg PO QDAY [facility] Last Admin: 09/28/18 09:26 Dose: 25 mg Documented by: Review of Systems - Review of Systems All systems: negative (except as mentioned above in HPI) Exam - Constitutional Vital Signs: Temp Pulse Resp BP Pulse Ox 97.3 F L 63 18 101/71 99 09/28/18 04:37 09/28/18 14:21 09/28/18 10:00 09/28/18 14:21 09/28/18 13:07 General appearance: other (obese) - EENT Eyes: EOM intact - Neck Neck: supple - Respiratory Respiratory: bilateral: CTA - Cardiovascular Rhythm: other (distant heart sounds) - Gastrointestinal General gastrointestinal: Present: soft, tender, normal bowel sounds, other - Integumentary Integumentary: Present: warm, dry - Musculoskeletal Musculoskeletal: normal - Neurologic Neurological: alert and oriented x3 - Psychiatric Psychiatric: appropriate mood/affect - Labs CBC & Chem 7: 09/28/18 10:23 09/25/18 04:34 Lab Results: Laboratory Results - last 24 hr 09/27/18 09/28/18 18:54 10:23 WBC 3.7 L 3.7 L RBC 3.30 L 3.17 L Hgb 11.4 10.9 Hct 34.4 33.2 MCV 104 H 105 H MCH 34 H 34 H MCHC 33 33 RDW 15.8 H 15.7 H Plt Count 213 205 Lymph % (Auto) 5.0 L 4.5 L [place] % (Auto) 15.0 H 13.6 H Eos % (Auto) 1.1 0.4 Baso % (Auto) 0.6 0.4 Lymph # 0.2 L 0.2 L [place] # 0.6 0.5 Eos # 0.0 0.0 Baso # 0.0 0.0 Seg Neutrophils % 78.3 H 81.1 H Seg Neutrophils # 2.9 3.0 Assessment and Plan Hgb stable and no melena and no more evidence for GI bleeding, and patient at elevated risk for endoscopy due to medical comorbidities, therefore given no active bleeding and stable hgb will not recommend endoscopy at the moment and can consider restarting blood thinner with close clinical monitoring. Continue PPI and anti-emetics Regardind Abd pain and N/V, patient does have ascites (suspect cardiac given her medical history and normal liver on imaging) so SBP in the differential diagnosis; therefore will order paracentesis to be thorough. - Patient Problems (1) Coffee ground emesis Current Visit: Yes Status: Acute (2) Generalized abdominal pain Current Visit: Yes Status: Acute (3) Ascites Current Visit: Yes Status: Acute
[2018-09-28] MEDS ORDERED: DULCOLAX PR ONE (21:18)
[2018-09-29] MEDS: APRESOLINE PO SCH ×3 (05:35→21:41)
[2018-09-29] MEDS: LASIX IV SCH ×2 (05:35→17:27)
[2018-09-29] MEDS: PROTONIX 80 MG in NACL 0.9% 100 ML IV SCH (07:54)
[2018-09-29 07:57] LABS: INR 1.19 (0.87-1.13); Partial Thromboplastin Time 35.9 Sec. (24.2-36.6)
[2018-09-29] MEDS: PULMICORT IH SCH ×2 (08:35→20:16)
[2018-09-29] MEDS: PROVENTIL IH SCH ×2 (08:35→20:17)
[2018-09-29] MEDS: LEVAQUIN 500MG/100ML 500 MG/100 ML BAG IV SCH (09:13)
--- NOTE | 2018-09-29 10:08 | Progress Note ---
Assessment and Plan Chronic systolic heart failure Ascities Acute renal failure Hx of LUE DVT Hx of coronary artery disease cardiac cath 03/2018 revealed patent SVG to LAD, patent SVG to OM, patent SVG to PDA and patent diagonal stent, LVEF 10-15%. Hx of Ischemic cardiomyopathy ejection fraction 10-15% by echo 08/2018 Presence of single chamber cardiac defibrillator underlying paroxysmal atrial fibrillation previously treated with eliquis for oral anticoagulation therapy. Tobacco abuse Recommend: Fluid/sodium restriction. Daily weight. Continue medical therapy for chronic systolic heart failure, coronary artery disease and paroxysmal Afib. Subjective Date of service: 09/29/18 Interval history: Patient is resting in bed comfortably. Patient reports she is diuresing well. Eliquis held for planned paracentesis today. Objective Vital Signs Temp Pulse Pulse Resp Resp BP Pulse Ox 09/29/18 08:57 73 20 09/29/18 08:47 98.3 F 72 18 114/76 98 09/29/18 08:38 99 09/29/18 08:36 81 18 09/29/18 04:52 98.2 F 09/29/18 04:51 77 20 113/72 99 09/28/18 23:33 97.9 F 09/28/18 23:31 78 18 128/74 100 09/28/18 22:23 96 H 09/28/18 22:00 98 09/28/18 21:48 74 16 09/28/18 21:36 65 16 98 09/28/18 20:23 97.5 F L 09/28/18 20:17 75 20 112/70 99 09/28/18 16:11 98.7 F 63 18 111/74 98 09/28/18 14:21 63 101/71 09/28/18 13:07 64 114/63 99 09/28/18 12:00 64 - Physical Examination General: No Apparent Distress, Other (Obese) HEENT: Positive: PERRL Neck: Positive: trachea midline Cardiac: Positive: irregularly irregular Lungs: Positive: Decreased Breath Sounds Neuro: Positive: Grossly Intact, Weakness Extremities: Present: +2 Edema - Labs and Meds Coagulation 09/29/18 Range/Units 07:19 PT 14.8 (12.2-14.9) Sec. INR 1.19 H (0.87-1.13) APTT 35.9 (24.2-36.6) Sec. CBC 09/28/18 Range/Units 10:23 WBC 3.7 L (4.5-11.0) K/mm3 RBC 3.17 L (3.65-5.03) M/mm3 Hgb 10.9 (10.1-14.3) gm/dl Hct 33.2 (30.3-42.9) % Plt Count 205 (140-440) K/mm3 Lymph # 0.2 L (1.2-5.4) K/mm3 [place] # 0.5 (0.0-0.8) K/mm3 Eos # 0.0 (0.0-0.4) K/mm3 Baso # 0.0 (0.0-0.1) K/mm3
--- NOTE | 2018-09-29 11:30 | Progress Note ---
Assessment and Plan Assessment and plan: Coffee-ground emesis last Hematemesis. Patient's hemoglobin remained stable with no more evidence of GI bleeding. GI believes the patient has elevated risk for endoscopy due to medical comorbidities. Therefore, no endoscopy recommended at this time. We will restart aspirin and eliquis after paracentesis Abdominal pain with N/V. Paracentesis today to rule out SBP. Ascites. As above. Acute on chronic combined systolic and diastolic heart failure Continue Lasix and metolazone Continue daily weights, strict I and O's and free water restriction. 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 As above EF 10-15% Mastoiditis with probable sinusitis. Patient complains of persistent headache. CT scan of the head essentially negative except revealing mastoiditis. Continue IV Levaquin. Acute on chronic resp failure Supplemental Oxygen Coronary artery disease status post CABG History of DVT left cephalic vein and left int jugular vein On Eliquis PAF Continue Eliquis COPD On home Oxygen Morbid Obesity Diet, exercise Deconditioning. PT evaluation. Full code status History Interval history: Patient is 67-year-old female with history of HTN,CAD and s/p CABG X3 presented with chest pain. She was seen and evaluated in ED. For chest pain a V/Q scan was done, low propability of pulmonary embolism. She was admitted , evaluated by cardiology. She is diagnosed with acute on chronic systolic CHF , started on Lasix, Milrinone drip. Eliquis continued for PAF and history of DVT. Her EF is 10-15% from Echo 09/07/18. Patient experienced 1 episode of hematemesis on 09/27/18. S he reports abd pain is periumbilical, moderate, sharp, constant, duration days, alleviated and exacerbated by nothing, associated with N/V, no melena no blood in the stool. Hospitalist Physical - Constitutional Vitals: Temp Pulse Resp BP Pulse Ox 98.3 F 73 20 114/76 98 09/29/18 08:47 09/29/18 08:57 09/29/18 08:57 09/29/18 08:47 09/29/18 08:47 General appearance: Present: no acute distress - EENT Eyes: Present: PERRL, EOM intact ENT: hearing intact, clear oral mucosa, dentition normal - Neck Neck: Present: supple, normal ROM - Respiratory Respiratory effort: normal Respiratory: bilateral: CTA - Cardiovascular Rhythm: regular Heart Sounds: Present: S1 & S2. Absent: gallop, rub - Extremities Extremities: no ischemia, No edema, Full ROM - Abdominal General gastrointestinal: soft, non-tender, non-distended, normal bowel sounds - Integumentary Integumentary: Present: clear, warm, dry - Neurologic Neurologic: CNII-XII intact, moves all extremities Results - Labs CBC & Chem 7: 09/28/18 10:23 09/25/18 04:34 Labs: Laboratory Last Values WBC 3.7 K/mm3 (4.5-11.0) L 09/28/18 10:23 RBC 3.17 M/mm3 (3.65-5.03) L 09/28/18 10:23 Hgb 10.9 gm/dl (10.1-14.3) 09/28/18 10:23 Hct 33.2 % (30.3-42.9) 09/28/18 10:23 MCV 105 fl (79-97) H 09/28/18 10:23 MCH 34 pg (28-32) H 09/28/18 10:23 MCHC 33 % (30-34) 09/28/18 10:23 RDW 15.7 % (13.2-15.2) H 09/28/18 10:23 Plt Count 205 K/mm3 (140-440) 09/28/18 10:23 Lymph % (Auto) 4.5 % (13.4-35.0) L 09/28/18 10:23 [place] % (Auto) 13.6 % (0.0-7.3) H 09/28/18 10:23 Eos % (Auto) 0.4 % (0.0-4.3) 09/28/18 10:23 Baso % (Auto) 0.4 % (0.0-1.8) 09/28/18 10:23 Lymph # 0.2 K/mm3 (1.2-5.4) L 09/28/18 10:23 [place] # 0.5 K/mm3 (0.0-0.8) 09/28/18 10:23 Eos # 0.0 K/mm3 (0.0-0.4) 09/28/18 10:23 Baso # 0.0 K/mm3 (0.0-0.1) 09/28/18 10:23 Seg Neutrophils % 81.1 % (40.0-70.0) H 09/28/18 10:23 Seg Neutrophils # 3.0 K/mm3 (1.8-7.7) 09/28/18 10:23 PT 14.8 Sec. (12.2-14.9) 09/29/18 07:19 INR 1.19 (0.87-1.13) H 09/29/18 07:19 APTT 35.9 Sec. (24.2-36.6) 09/29/18 07:19 1953.89 ng/mlDDU (0-234) H 09/20/18 09:24 Sodium 137 mmol/L (137-145) 09/25/18 04:34 Potassium 3.5 mmol/L (3.6-5.0) L D 09/25/18 04:34 Chloride 95.3 mmol/L (98-107) L 09/25/18 04:34 Carbon Dioxide 31 mmol/L (22-30) H 09/25/18 04:34 14 mmol/L 09/25/18 04:34 BUN 26 mg/dL (7-17) H 09/25/18 04:34 1.3 mg/dL (0.7-1.2) H 09/25/18 04:34 Estimated GFR 49 ml/min 09/25/18 04:34 20 % 09/25/18 04:34 Glucose 93 mg/dL (65-100) 09/25/18 04:34 5.5 % (4-6) 09/20/18 09:24 Calcium 8.2 mg/dL (8.4-10.2) L 09/25/18 04:34 Magnesium 1.90 mg/dL (1.7-2.3) 09/20/18 09:24 0.50 mg/dL (0.1-1.2) 09/21/18 08:18 < 0.2 mg/dL (0-0.2) 09/20/18 09:24 AST 32 units/L (5-40) 09/21/18 08:18 ALT 16 units/L (7-56) 09/21/18 08:18 91 units/L (35-129) 09/21/18 08:18 230 units/L (30-135) H 09/20/18 09:24 CK-MB (CK-2) 3.4 ng/mL (0.0-4.0) 09/20/18 09:24 CK-MB (CK-2) Rel Index 1.4 (0-4) 09/20/18 09:24 0.014 ng/mL (0.00-0.029) 09/20/18 09:24 NT-Pro-B Natriuret Pep 8916 pg/mL (0-900) H 09/20/18 09:24 5.2 g/dL (6.3-8.2) L 09/21/18 08:18 1.8 g/dL (3.9-5) L 09/21/18 08:18 0.5 % 09/21/18 08:18 Active Medications - Current Medications Current Medications: Generic Name Dose Route Start Last Admin Trade Name Freq PRN Reason Stop Dose Admin Acetaminophen 650 mg 09/20/18 21:31 09/26/18 09:51 Tylenol PO 650 mg Q4H PRN Administration Pain MILD(1-3)/Fever >100.5/VILLAVICENCIO Albuterol 2.5 mg 09/20/18 21:47 09/28/18 21:33 Proventil IH 2.5 mg Q4HRT PRN Administration Wheezing Albuterol 2.5 mg 09/25/18 08:00 09/29/18 08:35 Proventil IH 2.5 mg BIDRT [facility] Administration Budesonide 0.5 mg 09/25/18 08:00 09/29/18 08:35 Pulmicort IH 0.5 mg Q12HRT [facility] Administration Bupropion HCl 150 mg 09/20/18 22:00 09/28/18 21:22 Wellbutrin Sr PO 150 mg BID [facility] Administration Carvedilol 3.125 mg 09/20/18 22:00 09/28/18 21:22 Coreg PO 3.125 mg BID [facility] Administration Cyclobenzaprine HCl 10 mg 09/20/18 21:27 09/25/18 09:30 Flexeril PO 10 mg TID PRN Administration Muscle Spasm Diphenhydramine HCl 25 mg 09/20/18 22:00 09/28/18 09:20 Benadryl PO 25 mg DAILY [facility] Administration Furosemide 60 mg 09/25/18 18:00 09/29/18 05:35 Lasix IV 60 mg 0600,1800 [facility] Administration Hydralazine HCl 25 mg 09/20/18 22:00 09/29/18 05:35 Apresoline PO 25 mg Q8HR [facility] Administration Hydromorphone HCl 0.5 mg 09/20/18 21:31 09/28/18 10:23 Dilaudid IV 0.5 mg Q3H PRN Administration Pain , Severe (7-10) Levofloxacin/Dextrose 500 mg in 100 mls @ 100 mls/hr 09/26/18 14:00 09/29/18 09:13 Levaquin 500mg/100ml IV 100 mls/hr Q24HR [facility] Administration Protocol Pantoprazole Sodium 80 mg/ 100 mls @ 10 mls/hr 09/27/18 19:30 09/29/18 07:54 Sodium Chloride IV 8 mg/hr DIRECT [facility] 10 mls/hr Administration 8 MG/HR Metolazone 5 mg 09/25/18 13:00 09/28/18 09:22 Zaroxolyn PO 5 mg QDAY [facility] Administration Ondansetron HCl 4 mg 09/20/18 21:31 09/27/18 09:28 Zofran IV 4 mg Q8H PRN Administration Nausea And Vomiting Polyethylene Glycol 17 gm 09/20/18 21:27 09/28/18 09:19 Miralax 3350 PO 17 gm BID PRN Administration Constipation Sertraline HCl 50 mg 09/20/18 22:00 09/28/18 09:19 Zoloft PO 50 mg DAILY [facility] Administration Sodium Chloride 10 ml 09/20/18 22:00 09/28/18 21:22 Sodium Chloride Flush Syringe 10 Ml IV 10 ml BID [facility] Administration Sodium Chloride 10 ml 09/20/18 21:31 Sodium Chloride Flush Syringe 10 Ml IV PRN PRN LINE FLUSH Spironolactone 25 mg 09/20/18 22:00 09/28/18 09:26 Aldactone PO 25 mg QDAY [facility] Administration Nutrition/Malnutrition Assess - Dietary Evaluation Nutrition/Malnutrition Findings: Nutrition Notes Start: 09/26/18 09:39 Freq: Status: Active Protocol: Document 09/26/18 09:39 LP (Rec: 09/26/18 09:47 LP [id number]) Nutrition Notes Need for Assessment generated from: LOS Initial or Follow up Assessment Current Diagnosis COPD,Hypertension,Heart Failure,Stroke Other Pertinent Diagnosis AMI Current Diet Cardiac Consistent CHO Labs/Tests Reviewed Pertinent Medications Reviewed Height 5 ft Weight 119.4 kg [place] Body Weight (kg) 45.45 BMI 51.4 Subjective/Other Information Screen for LOS. Pt states eating well [employer] and not eating well in the hospital due to food choices. Pt food preferences noted. Burn Absent Trauma Absent #1 Nutrition Diagnosis Inadequate oral intake Etiology dislike of food choices As Evidenced by Signs and Symptoms Pt states not eating well since being admitted Is patient on ventilator? No Is Patient Ambulatory and/or Out of Bed Yes REE-([place]-St. Jeor-ambulatory/OOB) [ 2139.150 NUTR.MSJOOB] Kcal/Kg value to use for calculation 15 Approximate Energy Requirements Using 1791 kcal/Kg Calculation Used for Recommendations Kcal/kg Additional Notes Protein needs are 64-77g (1-1. 2g/kg using 63.84kg adjusted wt) Fluid needs are 1ml/kcal Nutrition Intervention Change Diet Order: Continue Add Supplement/Snack (indicate name/kcal Ensure High protein BID /protein ) Provides kCal: 320 Provides Protein (gm) 32 Goal #1 Meet at least 80% of kcal and protein needs Anticipated Discharge Needs: Cardiac Follow-Up By: 09/30/18 Additional Comments Follow for intakes
--- NOTE | 2018-09-29 12:25 | Procedure Note ---
Date of procedure: 09/29/18 Pre-op diagnosis: ascites Post-op diagnosis: same Procedure: US paracentesis Findings: moderate ascites Anesthesia: local Surgeon: MONTSERRAT MONTES Estimated blood loss: none Pathology: list (120cc) Specimen disposition: to lab Condition: stable Disposition: floor
--- NOTE | 2018-09-29 12:25 | Ultrasound Report ---
ULTRASOUND PARACENTESIS HISTORY: Ascites. DESCRIPTION OF PROCEDURE: A time out was performed. Informed consent was obtained. Sterile technique was utilized. Using ultrasound guidance, a 5 [place] centesis needle was advanced into the peritoneal space. There was spontaneous return of blood-tinged fluid. 1.9 L of fluid was drained. 120 cc of fluid was sent to laboratory for analysis. No complications. IMPRESSION: Successful ultrasound-guided paracentesis.
--- NOTE | 2018-09-29 12:47 | Gastroenterology Progress Note ---
<ARCHANA CISNEROS - Last Filed: 09/29/18 13:12> Assessment and Plan 1.abdominal pain 2.N/V 3.coffee-ground emesis 4.ascites seen on CT -afebrile -WBC 3.7 -LFTs WNL -H/H WNL (10.9/33.2) -continue to monitor H/H and transfuse as needed -no active signs of bleeding overnight or this am -last EGD 05/16/2018 showed medium hiatal hernia, moderate gastritis with ulceration, and moderate duodenitis -bx results negative -abd U/S 05/16/18 showed GB polyp, course/fatty liver -abd CT-ascites, cardiomegaly, and dinesh pleural effusions -no plan for repeat EGD at this time unless overt bleeding develops (patient elevated risk for endoscopy due to medical comorbidities) -ascites-likely cardiac in etiology-paracentesis pending for today r/o SBP -consider HIDA scan based on clinical course -continue PPI and supportive care -further recommendations to follow Subjective Date of service: 09/29/18 Principal diagnosis: vomiting blood Interval history: Patient sitting on the side of the bed this am w/o acute distress. Reports continued abd pain and N/V but no active signs of bleeding. Objective - Constitutional Vitals: Temp Pulse Resp BP Pulse Ox 98.3 F 73 20 114/76 98 09/29/18 08:47 09/29/18 08:57 09/29/18 08:57 09/29/18 08:47 09/29/18 08:47 General appearance: no acute distress, obese - Respiratory Respiratory effort: normal Respiratory: bilateral: diminished - Cardiovascular Rhythm: regular - Gastrointestinal General gastrointestinal: Present: soft, tender (slight TTP), non-distended, normal bowel sounds, other (+obese) - Neurologic Neurological: alert and oriented x3 - Labs CBC & Chem 7: 09/28/18 10:23 09/25/18 04:34 Labs: Laboratory Results - last 24 hr 09/29/18 07:19 PT 14.8 INR 1.19 H APTT 35.9 <REED PERDOMO - Last Filed: 09/29/18 23:08> Assessment and Plan Patient seen and examined. I have reviewed the advanced practitioner's evaluation, assessment, and plan, and agree with them. I note the following additions: Pt with similar abd pain and nausea today. f/u para results to r/o SBP as source for symptoms, and if neg consider HIDA with CCK - Patient Problems (1) Coffee ground emesis Current Visit: Yes Status: Acute (2) Generalized abdominal pain Current Visit: Yes Status: Acute (3) Ascites Current Visit: Yes Status: Acute Objective - Constitutional Vitals: Temp Pulse Resp BP Pulse Ox 98.3 F 89 20 109/61 98 09/29/18 19:46 09/29/18 21:42 09/29/18 22:12 09/29/18 21:42 09/29/18 21:18 - Labs CBC & Chem 7: 09/28/18 10:23 09/25/18 04:34 Labs: Laboratory Results - last 24 hr 09/29/18 09/29/18 07:19 12:40 PT 14.8 INR 1.19 H APTT 35.9 Fluid Type Ascitic Fluid Color Bloody Fluid Appearance Turbid Fluid WBC 48 Fluid RBC 7850 Fluid Seg Neutrophils 34.0 Fluid Lymphocytes 24.0 Fluid Reactive Lymphs 2.0 Fluid Monocytes 38.0 Fluid Eosinophils 1.0 Fluid Basophils 1.0
[2018-09-29] MEDS: COREG PO SCH ×2 (13:17→21:42)
[2018-09-29] MEDS: FLEXERIL PO PRN (13:17)
[2018-09-29] MEDS: ALDACTONE PO SCH (13:17)
[2018-09-29] MEDS: ZAROXOLYN PO SCH (13:17)
[2018-09-29] MEDS: WELLBUTRIN SR PO SCH ×2 (13:18→21:42)
[2018-09-29] MEDS: ZOLOFT PO SCH (13:20)
[2018-09-29] MEDS: BENADRYL PO SCH (13:20)
[2018-09-29] MEDS: SODIUM CHLORIDE FLUSH SYRINGE 10 ML IV SCH ×2 (13:21→21:43)
[2018-09-29 17:49] LABS: Total Cells Counted 100 /mm3
[2018-09-29] MEDS: PROTONIX PO SCH (21:42)
[2018-09-29] MEDS: DILAUDID IV PRN (21:42)
[2018-09-30] MEDS: APRESOLINE PO SCH ×3 (05:59→22:22)
[2018-09-30] MEDS: LASIX IV SCH ×2 (05:59→17:40)
[2018-09-30] MEDS: FLEXERIL PO PRN ×2 (06:00→22:22)
[2018-09-30] MEDS: PROVENTIL IH SCH ×2 (09:15→19:58)
[2018-09-30] MEDS: PULMICORT IH SCH ×2 (09:17→19:58)
[2018-09-30] MEDS: LEVAQUIN 500MG/100ML 500 MG/100 ML BAG IV SCH (09:29)
[2018-09-30] MEDS: PROTONIX PO SCH ×2 (09:30→22:22)
[2018-09-30] MEDS: ALDACTONE PO SCH (09:30)
[2018-09-30] MEDS: BENADRYL PO SCH (09:30)
[2018-09-30] MEDS: ZAROXOLYN PO SCH (09:30)
[2018-09-30] MEDS: ZOLOFT PO SCH (09:30)
[2018-09-30] MEDS: COREG PO SCH ×2 (09:30→22:22)
[2018-09-30] MEDS: SODIUM CHLORIDE FLUSH SYRINGE 10 ML IV SCH ×2 (09:31→22:23)
[2018-09-30] MEDS: WELLBUTRIN SR PO SCH ×2 (09:31→22:22)
--- NOTE | 2018-09-30 12:29 | Gastroenterology Progress Note ---
<ARCHANA CISNEROS - Last Filed: 09/30/18 12:29> Assessment and Plan 1.abdominal pain 2.N/V 3.coffee-ground emesis 4.ascites seen on CT -afebrile -WBC 3.7 -LFTs WNL -H/H WNL -continue to monitor H/H and transfuse as needed -no active signs of bleeding overnight or this am -last EGD 05/16/2018 showed medium hiatal hernia, moderate gastritis with ulceration, and moderate duodenitis -bx results negative -abd U/S 05/16/18 showed GB polyp, course/fatty liver -abd CT-ascites, cardiomegaly, and dinesh pleural effusions -ascites-likely cardiac in etiology-s/p paracentesis yesterday with 1.9L removed; no evidence of SBP; fluid albumin pending (SAAG unable to calculate at this time) -clinically, patient reports N/V improved. Tolerated small amounts of food this am for breakfast. -no plan for repeat EGD at this time unless overt bleeding develops (patient elevated risk for endoscopy due to medical comorbidities) -continue PPI and supportive care -if patient continues to tolerate PO, okay to be d/c per GI standpoint with f/u in clinic -if symptoms reoccur, recommend a HIDA scan for further evaluation to r/o GB disease -no further recommendations per GI standpoint at this time, will sign off. Please call back if needed Subjective Date of service: 09/30/18 Principal diagnosis: vomiting blood Interval history: Patient resting in bed this am w/o acute distress. Reports N/V improved with ability to tolerate small amount of food this am for breakfast. No active signs of bleeding. Objective - Constitutional Vitals: Temp Pulse Resp BP Pulse Ox 97.7 F 78 18 98/51 97 09/30/18 08:21 09/30/18 09:37 09/30/18 09:37 09/30/18 09:32 09/30/18 09:32 General appearance: no acute distress, obese - Respiratory Respiratory effort: normal Respiratory: bilateral: diminished - Cardiovascular Rhythm: regular - Gastrointestinal General gastrointestinal: Present: soft, tender (slight TTP), non-distended, normal bowel sounds, other (obese) - Neurologic Neurological: alert and oriented x3 - Labs CBC & Chem 7: 09/28/18 10:23 09/25/18 04:34 Labs: Laboratory Results - last 24 hr 09/29/18 12:40 Fluid Type Ascitic Fluid Color Bloody Fluid Appearance Turbid Fluid WBC 48 Fluid RBC 7850 Fluid Seg Neutrophils 34.0 Fluid Lymphocytes 24.0 Fluid Reactive Lymphs 2.0 Fluid Monocytes 38.0 Fluid Eosinophils 1.0 Fluid Basophils 1.0 <REED PERDOMO - Last Filed: 09/30/18 23:56> Assessment and Plan Patient seen and examined. Advanced practitioner's assessment and plan evaluated and I agree with the plan with the following additions: patient gradually improving s/p para with fluid neg for SBP; continue supportive care but given improved symptoms and stable hgb will sign off, please call back if we can be of any further assistance. - Patient Problems (1) Coffee ground emesis Current Visit: Yes Status: Acute (2) Generalized abdominal pain Current Visit: Yes Status: Acute (3) Ascites Current Visit: Yes Status: Acute Objective - Constitutional Vitals: Temp Pulse Resp BP Pulse Ox 98.0 F 58 L 18 111/77 95 09/30/18 23:29 09/30/18 23:29 09/30/18 23:29 09/30/18 23:29 09/30/18 23:29 - Labs CBC & Chem 7: 09/28/18 10:23 09/25/18 04:34
--- NOTE | 2018-09-30 13:23 | Progress Note ---
Assessment and Plan Chronic systolic heart failure Ascities s/p paracentesis Acute renal failure Hx of LUE DVT Hx of coronary artery disease cardiac cath 03/2018 revealed patent SVG to LAD, patent SVG to OM, patent SVG to PDA and patent diagonal stent, LVEF 10-15%. Hx of Ischemic cardiomyopathy ejection fraction 10-15% by echo 08/2018 Presence of single chamber cardiac defibrillator underlying paroxysmal atrial fibrillation previously treated with eliquis for oral anticoagulation therapy. Tobacco abuse Recommend: Fluid/sodium restriction. Daily weight. Continue medical therapy for chronic systolic heart failure, coronary artery disease and paroxysmal Afib. Subjective Date of service: 09/30/18 Principal diagnosis: vomiting blood Interval history: Patient is resting in bed comfortably. LE edema is slow to improve. Patient reports she is diuresing well. Objective Vital Signs Temp Pulse Pulse Resp Resp Resp BP 09/30/18 09:37 78 18 09/30/18 09:32 52 L 98/51 09/30/18 09:17 82 20 09/30/18 08:21 97.7 F 52 L 16 113/63 09/30/18 05:59 62 102/78 09/30/18 04:33 97.4 F L 62 20 102/78 09/30/18 00:18 97.3 F L 62 18 115/75 09/29/18 22:12 20 09/29/18 21:49 20 09/29/18 21:42 89 20 109/61 09/29/18 21:41 89 109/61 09/29/18 21:18 09/29/18 20:33 89 18 09/29/18 20:30 22 09/29/18 20:18 87 18 09/29/18 19:51 78 09/29/18 19:46 98.3 F 67 20 109/61 09/29/18 16:26 79 109/59 Pulse Ox 09/30/18 09:37 09/30/18 09:32 97 09/30/18 09:17 09/30/18 08:21 93 09/30/18 05:59 09/30/18 04:33 98 09/30/18 00:18 96 09/29/18 22:12 09/29/18 21:49 09/29/18 21:42 09/29/18 21:41 09/29/18 21:18 98 09/29/18 20:33 06/17/19 20:30 97 09/29/18 20:18 09/29/18 19:51 09/29/18 19:46 100 09/29/18 16:26 99 - Physical Examination General: No Apparent Distress, Other (Obese) HEENT: Positive: PERRL Neck: Positive: trachea midline Cardiac: Positive: irregularly irregular Lungs: Positive: Decreased Breath Sounds Neuro: Positive: Grossly Intact, Weakness Abdomen: Positive: Soft Extremities: Present: +2 Edema
--- NOTE | 2018-09-30 14:51 | Progress Note ---
Assessment and Plan Assessment and plan: --Coffee-ground emesis/ Hematemesis. H&H stable , no new episodes of GI bleeding GI evaluated in view of multiple comorbidities high risk for endoscopy Aspirin and Eliquis will be resumed after paracentesis --Abdominal pain with N/V/ascites. 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 As above, EF 10-15% --Mastoiditis with probable sinusitis.Complains of persistent headache. CT scan of the head essentially negative except revealing mastoiditis. Continue IV Levaquin. --Acute on chronic resp failure Supplemental Oxygen --Coronary artery disease status post CABG --History of DVT left cephalic vein and left int jugular vein On Eliquis --PAF:Continue Eliquis --History of COPD; nebs/inhalers/home oxygen --Morbid Obesity; BMI 46.4 Advised status weight reduction diet modification and exercise When medically stable --Deconditioning: PT evaluation. --Full code status --Discharge planning; possible discharge home with home health versus home hospice When stable Monitor closely and adjust management as needed Possible discharge in 1-2 days if stable History Interval history: Patient seen and examined this morning medical records reviewed Admitted with chronic systolic congestive heart failure Evaluated by cardiology, Patient feels slightly better Denies chest pain or shortness of breath Alert awake oriented 3 Vital signs reviewed Hospitalist Physical - Constitutional Vitals: Temp Pulse Resp BP Pulse Ox 97.7 F 78 18 98/51 97 09/30/18 08:21 09/30/18 09:37 09/30/18 09:37 09/30/18 09:32 09/30/18 09:32 General appearance: Present: no acute distress, obese (morbidly obese) - EENT Eyes: Present: PERRL, EOM intact - Neck Neck: Present: supple, normal ROM - Respiratory Respiratory effort: normal Respiratory: bilateral: diminished, rales, negative: rhonchi, wheezing - Cardiovascular Rhythm: regular Heart Sounds: Present: S1 & S2 - Extremities Extremities: no ischemia Extremity abnormal: edema - Abdominal General gastrointestinal: soft, non-tender, non-distended, normal bowel sounds - Integumentary Integumentary: Present: clear, warm - Psychiatric Psychiatric: appropriate mood/affect, cooperative - Neurologic Neurologic: CNII-XII intact, moves all extremities Results - Labs CBC & Chem 7: 09/28/18 10:23 09/25/18 04:34 Labs: Laboratory Last Values WBC 3.7 K/mm3 (4.5-11.0) L 09/28/18 10:23 RBC 3.17 M/mm3 (3.65-5.03) L 09/28/18 10:23 Hgb 10.9 gm/dl (10.1-14.3) 09/28/18 10:23 Hct 33.2 % (30.3-42.9) 09/28/18 10:23 MCV 105 fl (79-97) H 09/28/18 10:23 MCH 34 pg (28-32) H 09/28/18 10:23 MCHC 33 % (30-34) 09/28/18 10:23 RDW 15.7 % (13.2-15.2) H 09/28/18 10:23 Plt Count 205 K/mm3 (140-440) 09/28/18 10:23 Lymph % (Auto) 4.5 % (13.4-35.0) L 09/28/18 10:23 Lucas % (Auto) 13.6 % (0.0-7.3) H 09/28/18 10:23 Eos % (Auto) 0.4 % (0.0-4.3) 09/28/18 10:23 Baso % (Auto) 0.4 % (0.0-1.8) 09/28/18 10:23 Lymph # 0.2 K/mm3 (1.2-5.4) L 09/28/18 10:23 Lucas # 0.5 K/mm3 (0.0-0.8) 09/28/18 10:23 Eos # 0.0 K/mm3 (0.0-0.4) 09/28/18 10:23 Baso # 0.0 K/mm3 (0.0-0.1) 09/28/18 10:23 Seg Neutrophils % 81.1 % (40.0-70.0) H 09/28/18 10:23 Seg Neutrophils # 3.0 K/mm3 (1.8-7.7) 09/28/18 10:23 PT 14.8 Sec. (12.2-14.9) 09/29/18 07:19 INR 1.19 (0.87-1.13) H 09/29/18 07:19 APTT 35.9 Sec. (24.2-36.6) 09/29/18 07:19 1953.89 ng/mlDDU (0-234) H 09/20/18 09:24 Sodium 137 mmol/L (137-145) 09/25/18 04:34 Potassium 3.5 mmol/L (3.6-5.0) L D 09/25/18 04:34 Chloride 95.3 mmol/L (98-107) L 09/25/18 04:34 Carbon Dioxide 31 mmol/L (22-30) H 09/25/18 04:34 14 mmol/L 09/25/18 04:34 BUN 26 mg/dL (7-17) H 09/25/18 04:34 1.3 mg/dL (0.7-1.2) H 09/25/18 04:34 Estimated GFR 49 ml/min 09/25/18 04:34 20 % 09/25/18 04:34 Glucose 93 mg/dL (65-100) 09/25/18 04:34 5.5 % (4-6) 09/20/18 09:24 Calcium 8.2 mg/dL (8.4-10.2) L 09/25/18 04:34 Magnesium 1.90 mg/dL (1.7-2.3) 09/20/18 09:24 0.50 mg/dL (0.1-1.2) 09/21/18 08:18 < 0.2 mg/dL (0-0.2) 09/20/18 09:24 AST 32 units/L (5-40) 09/21/18 08:18 ALT 16 units/L (7-56) 09/21/18 08:18 91 units/L (35-129) 09/21/18 08:18 230 units/L (30-135) H 09/20/18 09:24 CK-MB (CK-2) 3.4 ng/mL (0.0-4.0) 09/20/18 09:24 CK-MB (CK-2) Rel Index 1.4 (0-4) 09/20/18 09:24 0.014 ng/mL (0.00-0.029) 09/20/18 09:24 NT-Pro-B Natriuret Pep 8916 pg/mL (0-900) H 09/20/18 09:24 5.2 g/dL (6.3-8.2) L 09/21/18 08:18 1.8 g/dL (3.9-5) L 09/21/18 08:18 0.5 % 09/21/18 08:18 Fluid Type Ascitic 09/29/18 12:40 Fluid Color Bloody 09/29/18 12:40 Fluid Appearance Turbid 09/29/18 12:40 Fluid WBC 48 /mm3 09/29/18 12:40 Fluid RBC 7850 /mm3 09/29/18 12:40 Fluid Seg Neutrophils 34.0 % 09/29/18 12:40 Fluid Lymphocytes 24.0 % 09/29/18 12:40 Fluid Reactive Lymphs 2.0 % 09/29/18 12:40 Fluid Monocytes 38.0 % 09/29/18 12:40 Fluid Eosinophils 1.0 % 09/29/18 12:40 Fluid Basophils 1.0 % 09/29/18 12:40 Active Medications - Current Medications Current Medications: Generic Name Dose Route Start Last Admin Trade Name Freq PRN Reason Stop Dose Admin Acetaminophen 650 mg 09/20/18 21:31 09/26/18 09:51 Tylenol PO 650 mg Q4H PRN Administration Pain MILD(1-3)/Fever >100.5/VILLAVICENCIO Albuterol 2.5 mg 09/25/18 08:00 09/30/18 09:15 Proventil IH 2.5 mg BIDRT RADHA Administration Budesonide 0.5 mg 09/25/18 08:00 09/30/18 09:17 Pulmicort IH 0.5 mg Q12HRT RADHA Administration Bupropion HCl 150 mg 09/20/18 22:00 09/30/18 09:31 Wellbutrin Sr PO 150 mg BID RADHA Administration Carvedilol 3.125 mg 09/20/18 22:00 09/30/18 09:30 Coreg PO Not Given BID RADHA Cyclobenzaprine HCl 10 mg 09/20/18 21:27 09/30/18 06:00 Flexeril PO 10 mg TID PRN Administration Muscle Spasm Diphenhydramine HCl 25 mg 09/20/18 22:00 09/30/18 09:30 Benadryl PO 25 mg DAILY RADHA Administration Furosemide 60 mg 09/25/18 18:00 09/30/18 05:59 Lasix IV 60 mg 0600,1800 RADHA Administration Hydralazine HCl 25 mg 09/20/18 22:00 09/30/18 05:59 Apresoline PO 25 mg Q8HR RADHA Administration Hydromorphone HCl 0.5 mg 09/20/18 21:31 09/29/18 21:42 Dilaudid IV 0.5 mg Q3H PRN Administration Pain , Severe (7-10) Levofloxacin/Dextrose 500 mg in 100 mls @ 100 mls/hr 09/26/18 14:00 09/30/18 09:29 Levaquin 500mg/100ml IV 100 mls/hr Q24HR RADHA Administration Protocol Metolazone 5 mg 09/25/18 13:00 09/30/18 09:30 Zaroxolyn PO 5 mg QDAY [facility] Administration Ondansetron HCl 4 mg 09/20/18 21:31 09/27/18 09:28 Zofran IV 4 mg Q8H PRN Administration Nausea And Vomiting Pantoprazole Sodium 40 mg 09/29/18 22:00 09/30/18 09:30 Protonix PO 40 mg BID RADHA Administration Polyethylene Glycol 17 gm 09/20/18 21:27 09/28/18 09:19 Miralax 3350 PO 17 gm BID PRN Administration Constipation Sertraline HCl 50 mg 09/20/18 22:00 09/30/18 09:30 Zoloft PO 50 mg DAILY [facility] Administration Sodium Chloride 10 ml 09/20/18 22:00 09/30/18 09:31 Sodium Chloride Flush Syringe 10 Ml IV 10 ml BID RADHA Administration Sodium Chloride 10 ml 09/20/18 21:31 Sodium Chloride Flush Syringe 10 Ml IV PRN PRN LINE FLUSH Spironolactone 25 mg 09/20/18 22:00 09/30/18 09:30 Aldactone PO Not Given QDAY [facility] Nutrition/Malnutrition Assess - Dietary Evaluation Nutrition/Malnutrition Findings: Nutrition Notes Start: 09/26/18 09:39 Freq: Status: Active Protocol: Document 09/26/18 09:39 LP (Rec: 09/26/18 09:47 LP [id number]) Nutrition Notes Need for Assessment generated from: LOS Initial or Follow up Assessment Current Diagnosis COPD,Hypertension,Heart Failure,Stroke Other Pertinent Diagnosis AMI Current Diet Cardiac Consistent CHO Labs/Tests Reviewed Pertinent Medications Reviewed Height 5 ft Weight 119.4 kg [place] Body Weight (kg) 45.45 BMI 51.4 Subjective/Other Information Screen for LOS. Pt states eating well [employer] and not eating well in the hospital due to food choices. Pt food preferences noted. Burn Absent Trauma Absent #1 Nutrition Diagnosis Inadequate oral intake Etiology dislike of food choices As Evidenced by Signs and Symptoms Pt states not eating well since being admitted Is patient on ventilator? No Is Patient Ambulatory and/or Out of Bed Yes REE-([place]-St. Jeor-ambulatory/OOB) [ 2139.150 NUTR.MSJOOB] Kcal/Kg value to use for calculation 15 Approximate Energy Requirements Using 1791 kcal/Kg Calculation Used for Recommendations Kcal/kg Additional Notes Protein needs are 64-77g (1-1. 2g/kg using 63.84kg adjusted wt) Fluid needs are 1ml/kcal Nutrition Intervention Change Diet Order: Continue Add Supplement/Snack (indicate name/kcal Ensure High protein BID /protein ) Provides kCal: 320 Provides Protein (gm) 32 Goal #1 Meet at least 80% of kcal and protein needs Anticipated Discharge Needs: Cardiac Follow-Up By: 09/30/18 Additional Comments Follow for intakes
[2018-09-30] MEDS: DILAUDID IV PRN ×2 (16:38→22:21)
[2018-10-01] MEDS: LASIX IV SCH ×2 (06:18→17:33)
[2018-10-01] MEDS: APRESOLINE PO SCH ×3 (06:19→21:40)
[2018-10-01 06:39] LABS: Basophils % (Auto) 0.3 % (0.0-1.8); Eosinophils % (Auto) 1.1 % (0.0-4.3); Hematocrit 32.6 % (30.3-42.9); Hemoglobin 10.9 gm/dl (10.1-14.3); Lymphocytes # (Auto) 0.2 K/mm3 (1.2-5.4); Lymphocytes % (Auto) 6.6 % (13.4-35.0); Mean Corpuscular HGB Conc 34 % (30-34); Mean Corpuscular Volume 103 fl (79-97); Monocytes # (Auto) 0.5 K/mm3 (0.0-0.8); Monocytes % (Auto) 15.5 % (0.0-7.3); Platelet Count 204 K/mm3 (140-440); Red Blood Count 3.18 M/mm3 (3.65-5.03); Red Cell Distribution Width 15.4 % (13.2-15.2)
[2018-10-01 06:54] LABS: Calcium 8.3 mg/dL (8.4-10.2)
--- NOTE | 2018-10-01 08:07 | Progress Note ---
Assessment and Plan Assessment and plan: --Severe hypokalemia; potassium 2.6 Replacement 40 mEq KCl by mouth every 3 hours 2 20 mEq IV KCl 1, follow electrolytes --Hypomagnesemia; magnesium 1.5; Replacement with 2 g of mag sulfate IV, follow levels --Coffee-ground emesis/ Hematemesis. H&H stable , no new episodes of GI bleeding GI evaluated in view of multiple comorbidities high risk for endoscopy Aspirin and Eliquis will be resumed after paracentesis --Abdominal pain with N/V/ascites. s/p ultrasound Paracentesis yesterday removed 1.9 L peritoneal fluid Follow-up fluid analysis --Acute on chronic combined systolic and diastolic heart failure Diuretic and the medications daily weights, strict I and O's and free water restriction., Milrinone drip as per hospital housekeeper --Dilated Ischemic cardiomyopathy. As above, EF 10-15% --Mastoiditis with probable sinusitis.Complains of persistent headache. CT scan of the head essentially negative except revealing mastoiditis. Continue IV Levaquin. --Acute on chronic resp failure Supplemental Oxygen --Coronary artery disease status post CABG --History of DVT left cephalic vein and left int jugular vein On Eliquis --PAF:Continue Eliquis --History of COPD; nebs/inhalers/home oxygen --Morbid Obesity; BMI 46.4 Advised status weight reduction diet modification and exercise When medically stable --Deconditioning: PT evaluation. --Full code status --Discharge planning; possible discharge home with home health versus home hospice When stable Monitor closely and adjust management as needed Possible discharge in 1-2 days if stable History Interval history: Patient seen and examined and medical records reviewed Patient feels slightly better no new complaints Vital signs noted Hospitalist Physical - Constitutional Vitals: Temp Pulse Resp BP Pulse Ox 97.9 F 68 20 116/60 97 10/01/18 04:05 10/01/18 06:19 10/01/18 04:05 10/01/18 06:19 10/01/18 04:42 General appearance: Present: no acute distress, well-nourished, obese (morbidly obese) - EENT Eyes: Present: PERRL, EOM intact - Neck Neck: Present: supple, normal ROM - Respiratory Respiratory effort: normal Respiratory: bilateral: diminished, negative: rales, rhonchi, wheezing - Cardiovascular Rhythm: regular Heart Sounds: Present: S1 & S2 - Extremities Extremities: no ischemia, No edema - Abdominal General gastrointestinal: soft, non-tender, non-distended, normal bowel sounds - Integumentary Integumentary: Present: clear, warm - Psychiatric Psychiatric: appropriate mood/affect, cooperative - Neurologic Neurologic: CNII-XII intact, moves all extremities Results - Labs CBC & Chem 7: 10/01/18 04:23 10/01/18 04:23 Labs: Laboratory Last Values WBC 3.4 K/mm3 (4.5-11.0) L 10/01/18 04:23 RBC 3.18 M/mm3 (3.65-5.03) L 10/01/18 04:23 Hgb 10.9 gm/dl (10.1-14.3) 10/01/18 04:23 Hct 32.6 % (30.3-42.9) 10/01/18 04:23 MCV 103 fl (79-97) H 10/01/18 04:23 MCH 35 pg (28-32) H 10/01/18 04:23 MCHC 34 % (30-34) 10/01/18 04:23 RDW 15.4 % (13.2-15.2) H 10/01/18 04:23 Plt Count 204 K/mm3 (140-440) 10/01/18 04:23 Lymph % (Auto) 6.6 % (13.4-35.0) L 10/01/18 04:23 Bell % (Auto) 15.5 % (0.0-7.3) H 10/01/18 04:23 Eos % (Auto) 1.1 % (0.0-4.3) 10/01/18 04:23 Baso % (Auto) 0.3 % (0.0-1.8) 10/01/18 04:23 Lymph # 0.2 K/mm3 (1.2-5.4) L 10/01/18 04:23 Bell # 0.5 K/mm3 (0.0-0.8) 10/01/18 04:23 Eos # 0.0 K/mm3 (0.0-0.4) 10/01/18 04:23 Baso # 0.0 K/mm3 (0.0-0.1) 10/01/18 04:23 Seg Neutrophils % 76.5 % (40.0-70.0) H 10/01/18 04:23 Seg Neutrophils # 2.6 K/mm3 (1.8-7.7) 10/01/18 04:23 PT 14.8 Sec. (12.2-14.9) 09/29/18 07:19 INR 1.19 (0.87-1.13) H 09/29/18 07:19 APTT 35.9 Sec. (24.2-36.6) 09/29/18 07:19 1953.89 ng/mlDDU (0-234) H 09/20/18 09:24 Sodium 140 mmol/L (137-145) 10/01/18 04:23 Potassium 2.6 mmol/L (3.6-5.0) L* 10/01/18 04:23 Chloride 91.5 mmol/L (98-107) L 10/01/18 04:23 Carbon Dioxide 38 mmol/L (22-30) H 10/01/18 04:23 13 mmol/L 10/01/18 04:23 BUN 27 mg/dL (7-17) H 10/01/18 04:23 1.1 mg/dL (0.7-1.2) 10/01/18 04:23 Estimated GFR 60 ml/min 10/01/18 04:23 25 % 10/01/18 04:23 Glucose 94 mg/dL (65-100) 10/01/18 04:23 5.5 % (4-6) 09/20/18 09:24 Calcium 8.3 mg/dL (8.4-10.2) L 10/01/18 04:23 Magnesium 1.50 mg/dL (1.7-2.3) L 10/01/18 04:23 0.50 mg/dL (0.1-1.2) 09/21/18 08:18 < 0.2 mg/dL (0-0.2) 09/20/18 09:24 AST 32 units/L (5-40) 09/21/18 08:18 ALT 16 units/L (7-56) 09/21/18 08:18 91 units/L (35-129) 09/21/18 08:18 230 units/L (30-135) H 09/20/18 09:24 CK-MB (CK-2) 3.4 ng/mL (0.0-4.0) 09/20/18 09:24 CK-MB (CK-2) Rel Index 1.4 (0-4) 09/20/18 09:24 0.014 ng/mL (0.00-0.029) 09/20/18 09:24 NT-Pro-B Natriuret Pep 8916 pg/mL (0-900) H 09/20/18 09:24 5.2 g/dL (6.3-8.2) L 09/21/18 08:18 1.8 g/dL (3.9-5) L 09/21/18 08:18 0.5 % 09/21/18 08:18 Fluid Type Ascitic 09/29/18 12:40 Fluid Color Bloody 09/29/18 12:40 Fluid Appearance Turbid 09/29/18 12:40 Fluid WBC 48 /mm3 09/29/18 12:40 Fluid RBC 7850 /mm3 09/29/18 12:40 Fluid Seg Neutrophils 34.0 % 09/29/18 12:40 Fluid Lymphocytes 24.0 % 09/29/18 12:40 Fluid Reactive Lymphs 2.0 % 09/29/18 12:40 Fluid Monocytes 38.0 % 09/29/18 12:40 Fluid Eosinophils 1.0 % 09/29/18 12:40 Fluid Basophils 1.0 % 09/29/18 12:40 Active Medications - Current Medications Current Medications: Generic Name Dose Route Start Last Admin Trade Name Eduardoq PRN Reason Stop Dose Admin Acetaminophen 650 mg 09/20/18 21:31 09/26/18 09:51 Tylenol PO 650 mg Q4H PRN Administration Pain MILD(1-3)/Fever >100.5/VILLAVICENCIO Albuterol 2.5 mg 09/25/18 08:00 09/30/18 19:58 Proventil IH 2.5 mg BIDRT RADHA Administration Budesonide 0.5 mg 09/25/18 08:00 09/30/18 19:58 Pulmicort IH 0.5 mg Q12HRT RADHA Administration Bupropion HCl 150 mg 09/20/18 22:00 06/18/19 22:22 Wellbutrin Sr PO 150 mg BID RADHA Administration Carvedilol 3.125 mg 09/20/18 22:00 09/30/18 22:22 Coreg PO 3.125 mg BID RADHA Administration Cyclobenzaprine HCl 10 mg 09/20/18 21:27 09/30/18 22:22 Flexeril PO 10 mg TID PRN Administration Muscle Spasm Diphenhydramine HCl 25 mg 09/20/18 22:00 09/30/18 09:30 Benadryl PO 25 mg DAILY RADHA Administration Furosemide 60 mg 09/25/18 18:00 10/01/18 06:18 Lasix IV 60 mg 0600,1800 RADHA Administration Hydralazine HCl 25 mg 09/20/18 22:00 10/01/18 06:19 Apresoline PO 25 mg Q8HR RADHA Administration Hydromorphone HCl 0.5 mg 09/20/18 21:31 09/30/18 22:21 Dilaudid IV 0.5 mg Q3H PRN Administration Pain , Severe (7-10) Levofloxacin/Dextrose 500 mg in 100 mls @ 100 mls/hr 09/26/18 14:00 09/30/18 09:29 Levaquin 500mg/100ml IV 100 mls/hr Q24HR RADHA Administration Protocol Potassium Chloride 10 meq in 100 mls @ 100 mls/hr 10/01/18 09:00 Kcl 10meq/100ml IV 10/01/18 10:59 Q1H RADHA Magnesium Sulfate 2 gm in 50 mls @ 25 mls/hr 10/01/18 08:05 Magnesium Sulfate 2gm/50ml IV 10/01/18 10:04 ONCE ONE Metolazone 5 mg 09/25/18 13:00 09/30/18 09:30 Zaroxolyn PO 5 mg QDAY RADHA Administration Ondansetron HCl 4 mg 09/20/18 21:31 09/27/18 09:28 Zofran IV 4 mg Q8H PRN Administration Nausea And Vomiting Pantoprazole Sodium 40 mg 09/29/18 22:00 09/30/18 22:22 Protonix PO 40 mg BID RADHA Administration Polyethylene Glycol 17 gm 09/20/18 21:27 09/28/18 09:19 Miralax 3350 PO 17 gm BID PRN Administration Constipation Potassium Chloride 40 meq 10/01/18 09:00 K-Dur PO 10/01/18 12:01 Q3H RADHA Sertraline HCl 50 mg 09/20/18 22:00 09/30/18 09:30 Zoloft PO 50 mg DAILY RADHA Administration Sodium Chloride 10 ml 09/20/18 22:00 09/30/18 22:23 Sodium Chloride Flush Syringe 10 Ml IV 10 ml BID RADHA Administration Sodium Chloride 10 ml 09/20/18 21:31 Sodium Chloride Flush Syringe 10 Ml IV PRN PRN LINE FLUSH Spironolactone 25 mg 09/20/18 22:00 09/30/18 09:30 Aldactone PO Not Given QDAY RADHA Nutrition/Malnutrition Assess - Dietary Evaluation Nutrition/Malnutrition Findings: Nutrition Notes Start: 09/26/18 09:39 Freq: Status: Active Protocol: Document 09/30/18 15:48 RM (Rec: 09/30/18 15:54 RM [id number]) Nutrition Notes Initial or Follow up Reassessment Current Diagnosis COPD,Hypertension,Heart Failure,Stroke Other Pertinent Diagnosis AMI, Ascites Current Diet Cardiac Consistent CHO w/ Ensure High Protein BID Labs/Tests Reviewed Pertinent Medications Lasix Height 5 ft Weight 110.1 kg [place] Body Weight (kg) 45.45 BMI 47.4 Weight change and time frame Current wt obtained from [facility]. Wt loss likely d/t fluid change. Subjective/Other Information Pt stated that her appetite is poor and that she has stomach pain. Noted lunch at bedside w/25% eaten. Stated that she drinks the Ensure High Protein . Admitted to chewing difficulty. Percent of energy/protein needs met: 49%/83% Burn Absent Trauma Absent #1 Nutrition Diagnosis Inadequate oral intake Diagnosis Progress(for reassessment Continues documentation) Is patient on ventilator? No Is Patient Ambulatory and/or Out of Bed Yes REE-([place]-St. Jeor-ambulatory/OOB) [ 2018.250 NUTR.MSJOOB] Kcal/Kg value to use for calculation 15 Approximate Energy Requirements Using 1652 kcal/Kg Calculation Used for Recommendations Kcal/kg Additional Notes Protein needs are 64-77g (1-1. 2g/kg using 63.84kg adjusted wt) Fluid needs are 1ml/kcal Nutrition Intervention Change Diet Order: Cardiac/Consistent CHO, Mech soft w/ground meat Add Supplement/Snack (indicate name/kcal Ensure High protein BID /protein ) Provides kCal: 320 Provides Protein (gm) 32 Goal #1 Meet at least 75% of kcal and protein needs Anticipated Discharge Needs: Cardiac Follow-Up By: 10/03/18 Additional Comments Follow for PO and ONS intakes
[2018-10-01] MEDS: PULMICORT IH SCH ×2 (08:16→19:07)
[2018-10-01] MEDS: PROVENTIL IH SCH ×2 (08:16→19:07)
[2018-10-01] MEDS ORDERED: MAGNESIUM SULFATE 2GM/50ML 2 GM/50 ML BAG IV ONE (09:00)
[2018-10-01] MEDS: K-DUR PO SCH ×2 (09:41→15:39)
[2018-10-01] MEDS: BENADRYL PO SCH (09:42)
[2018-10-01] MEDS: PROTONIX PO SCH ×2 (09:42→21:41)
[2018-10-01] MEDS: ZAROXOLYN PO SCH (09:42)
[2018-10-01] MEDS: ALDACTONE PO SCH (09:42)
[2018-10-01] MEDS: COREG PO SCH ×2 (09:43→21:41)
[2018-10-01] MEDS: WELLBUTRIN SR PO SCH ×2 (09:43→21:41)
[2018-10-01] MEDS: SODIUM CHLORIDE FLUSH SYRINGE 10 ML IV SCH ×2 (09:44→21:41)
[2018-10-01] MEDS: ZOLOFT PO SCH (09:44)
[2018-10-01] MEDS: DILAUDID IV PRN ×2 (09:45→23:50)
[2018-10-01] MEDS: LEVAQUIN 500MG/100ML 500 MG/100 ML BAG IV SCH (09:47)
--- NOTE | 2018-10-01 10:19 | Progress Note ---
<SAURAV PITT - Last Filed: 10/01/18 10:18> Assessment and Plan Chronic systolic heart failure Ascities s/p paracentesis Acute renal failure Hx of LUE DVT Hx of coronary artery disease cardiac cath 03/2018 revealed patent SVG to LAD, patent SVG to OM, patent SVG to PDA and patent diagonal stent, LVEF 10-15%. Hx of Ischemic cardiomyopathy ejection fraction 10-15% by echo 08/2018 Presence of single chamber cardiac defibrillator underlying paroxysmal atrial fibrillation previously treated with eliquis for oral anticoagulation therapy. Tobacco abuse Recommend: Fluid/sodium restriction. Daily weight. Continue medical therapy for chronic systolic heart failure, coronary artery disease and paroxysmal Afib. Subjective Date of service: 10/01/18 Principal diagnosis: vomiting blood Interval history: Patient is resting in bed comfortably. No interval changes. Objective Vital Signs Temp Pulse Pulse Resp Resp Resp BP 10/01/18 09:43 64 10/01/18 09:42 64 10/01/18 08:45 97.2 F L 59 L 16 101/55 10/01/18 08:40 69 18 10/01/18 08:17 10/01/18 08:16 70 18 10/01/18 06:19 68 116/60 10/01/18 04:42 54 L 10/01/18 04:05 97.9 F 44 L 20 113/62 09/30/18 23:29 98.0 F 58 L 18 111/77 09/30/18 22:51 20 09/30/18 22:27 20 09/30/18 22:22 71 105/66 09/30/18 22:21 20 09/30/18 22:18 98.0 F 71 20 105/66 09/30/18 21:23 20 09/30/18 20:13 65 18 09/30/18 19:59 09/30/18 19:58 63 18 09/30/18 19:43 75 09/30/18 19:07 98.3 F 59 L 18 107/55 09/30/18 18:27 98.0 F 71 16 116/69 09/30/18 12:00 60 Pulse Ox 10/01/18 09:43 10/01/18 09:42 10/01/18 08:45 97 10/01/18 08:40 10/01/18 08:17 100 10/01/18 08:16 10/01/18 06:19 10/01/18 04:42 97 10/01/18 04:05 99 09/30/18 23:29 95 09/30/18 22:51 09/30/18 22:27 09/30/18 22:22 09/30/18 22:21 09/30/18 22:18 90 09/30/18 21:23 100 09/30/18 20:13 09/30/18 19:59 100 09/30/18 19:58 09/30/18 19:43 09/30/18 19:07 98 09/30/18 18:27 100 09/30/18 12:00 - Physical Examination General: No Apparent Distress, Other (Obese) HEENT: Positive: PERRL Neck: Positive: trachea midline Cardiac: Positive: Irregularly Regular Lungs: Positive: Decreased Breath Sounds Neuro: Positive: Grossly Intact, Weakness Abdomen: Positive: Soft Extremities: Present: +2 Edema - Labs and Meds CBC 10/01/18 Range/Units 04:23 WBC 3.4 L (4.5-11.0) K/mm3 RBC 3.18 L (3.65-5.03) M/mm3 Hgb 10.9 (10.1-14.3) gm/dl Hct 32.6 (30.3-42.9) % Plt Count 204 (140-440) K/mm3 Lymph # 0.2 L (1.2-5.4) K/mm3 [place] # 0.5 (0.0-0.8) K/mm3 Eos # 0.0 (0.0-0.4) K/mm3 Baso # 0.0 (0.0-0.1) K/mm3 Comprehensive Metabolic Panel 10/01/18 Range/Units 04:23 Sodium 140 (137-145) mmol/L Potassium 2.6 L* (3.6-5.0) mmol/L Chloride 91.5 L (98-107) mmol/L Carbon Dioxide 38 H (22-30) mmol/L BUN 27 H (7-17) mg/dL Creatinine 1.1 (0.7-1.2) mg/dL Glucose 94 (65-100) mg/dL Calcium 8.3 L (8.4-10.2) mg/dL <MAURI ARTEAGA - Last Filed: 10/01/18 12:42> Assessment and Plan Has seen and evaluated the patient and agree with the assessment and plan. Patient has a history of coronary artery disease status post CABG. Patient also has a history of ischemic cardiomyopathy with ejection fraction 10-15%. At this time recommend continued maximal medical therapy for treatment of ischemic cardiomyopathy and coronary artery disease. Patient continues to have significant lower extremity edema and feels that her stomach is also gaining fluid. At this time we will restart milrinone drip to increase renal perfusion, and hopefully increase urine output Objective Vital Signs Temp Pulse Pulse Resp Resp Resp BP 10/01/18 12:01 97.6 F 59 L 16 104/63 10/01/18 09:43 64 10/01/18 09:42 64 10/01/18 08:45 97.2 F L 59 L 16 101/55 10/01/18 08:40 69 18 10/01/18 08:17 10/01/18 08:16 70 18 10/01/18 06:19 68 116/60 10/01/18 04:42 54 L 10/01/18 04:05 97.9 F 44 L 20 113/62 09/30/18 23:29 98.0 F 58 L 18 111/77 09/30/18 22:51 20 09/30/18 22:27 20 09/30/18 22:22 71 105/66 09/30/18 22:21 20 09/30/18 22:18 98.0 F 71 20 105/66 09/30/18 21:23 20 09/30/18 20:13 65 18 09/30/18 19:59 09/30/18 19:58 63 18 09/30/18 19:43 75 09/30/18 19:07 98.3 F 59 L 18 107/55 09/30/18 18:27 98.0 F 71 16 116/69 Pulse Ox 10/01/18 12:01 99 10/01/18 09:43 10/01/18 09:42 10/01/18 08:45 97 10/01/18 08:40 10/01/18 08:17 100 10/01/18 08:16 10/01/18 06:19 10/01/18 04:42 97 10/01/18 04:05 99 09/30/18 23:29 95 09/30/18 22:51 09/30/18 22:27 09/30/18 22:22 09/30/18 22:21 09/30/18 22:18 90 09/30/18 21:23 100 09/30/18 20:13 09/30/18 19:59 100 09/30/18 19:58 09/30/18 19:43 09/30/18 19:07 98 09/30/18 18:27 100 - Labs and Meds CBC 10/01/18 Range/Units 04:23 WBC 3.4 L (4.5-11.0) K/mm3 RBC 3.18 L (3.65-5.03) M/mm3 Hgb 10.9 (10.1-14.3) gm/dl Hct 32.6 (30.3-42.9) % Plt Count 204 (140-440) K/mm3 Lymph # 0.2 L (1.2-5.4) K/mm3 [place] # 0.5 (0.0-0.8) K/mm3 Eos # 0.0 (0.0-0.4) K/mm3 Baso # 0.0 (0.0-0.1) K/mm3 Comprehensive Metabolic Panel 10/01/18 Range/Units 04:23 Sodium 140 (137-145) mmol/L Potassium 2.6 L* (3.6-5.0) mmol/L Chloride 91.5 L (98-107) mmol/L Carbon Dioxide 38 H (22-30) mmol/L BUN 27 H (7-17) mg/dL Creatinine 1.1 (0.7-1.2) mg/dL Glucose 94 (65-100) mg/dL Calcium 8.3 L (8.4-10.2) mg/dL
[2018-10-01] MEDS: KCL 10MEQ/100ML 10 MEQ/100 ML BAG IV SCH ×2 (11:08→15:08)
[2018-10-01] MEDS: ZOFRAN IV PRN ×2 (11:23→20:06)
[2018-10-01] MEDS: FLEXERIL PO PRN (20:06)
[2018-10-02] MEDS: LASIX IV SCH ×2 (05:40→17:52)
[2018-10-02] MEDS: APRESOLINE PO SCH ×3 (05:40→21:27)
[2018-10-02 06:39] LABS: Calcium 8.2 mg/dL (8.4-10.2)
[2018-10-02] MEDS: PROVENTIL IH SCH ×2 (08:33→22:02)
[2018-10-02] MEDS: PULMICORT IH SCH ×2 (08:34→22:02)
[2018-10-02] MEDS: ALDACTONE PO SCH (09:49)
[2018-10-02] MEDS: PROTONIX PO SCH ×2 (09:49→21:26)
[2018-10-02] MEDS: LEVAQUIN 500MG/100ML 500 MG/100 ML BAG IV SCH (09:49)
[2018-10-02] MEDS: ZAROXOLYN PO SCH (09:49)
[2018-10-02] MEDS: COREG PO SCH ×2 (09:49→21:27)
[2018-10-02] MEDS: ZOLOFT PO SCH (09:49)
[2018-10-02] MEDS: BENADRYL PO SCH (09:50)
[2018-10-02] MEDS: SODIUM CHLORIDE FLUSH SYRINGE 10 ML IV SCH ×2 (09:50→21:29)
[2018-10-02] MEDS: WELLBUTRIN SR PO SCH ×2 (09:50→21:27)
--- NOTE | 2018-10-02 11:16 | Progress Note ---
Assessment and Plan Assessment and plan: --Hypokalemia; replace with KCl Monitor levels --Hypomagnesemia; corrected --Coffee-ground emesis/ Hematemesis. H&H stable , no new episodes of GI bleeding GI evaluated in view of multiple comorbidities high risk for endoscopy Aspirin and Eliquis will be resumed after paracentesis --Abdominal pain with N/V/ascites. s/p ultrasound Paracentesis yesterday removed 1.9 L peritoneal fluid Follow-up fluid analysis --Acute on chronic combined systolic and diastolic heart failure Diuretic and the medications daily weights, strict I and O's and free water restriction., Milrinone drip as per manager lean --Dilated Ischemic cardiomyopathy. As above, EF 10-15% --Mastoiditis with probable sinusitis.Complains of persistent headache. CT scan of the head essentially negative except revealing mastoiditis. Continue IV Levaquin. --Acute on chronic resp failure Supplemental Oxygen --Coronary artery disease status post CABG --History of DVT left cephalic vein and left int jugular vein On Eliquis --PAF:Continue Eliquis --History of COPD; nebs/inhalers/home oxygen --Morbid Obesity; BMI 46.4 Advised status weight reduction diet modification and exercise When medically stable --Deconditioning: PT evaluation. --Full code status --Discharge planning; possible discharge home with home health versus home hospice When stable Monitor closely and adjust management as needed Possible discharge in 1-2 days if stable History Interval history: Patient seen and examined medical records reviewed Patient complaints of mild shortness of breath Alert awake, vital signs noted Hospitalist Physical - Constitutional Vitals: Temp Pulse Resp BP Pulse Ox 98.0 F 61 18 102/56 98 10/02/18 08:20 10/02/18 08:20 10/02/18 08:20 10/02/18 09:49 10/02/18 08:20 General appearance: Present: no acute distress, well-nourished, obese (morbidly obese) - EENT Eyes: Present: PERRL, EOM intact - Neck Neck: Present: supple, normal ROM - Respiratory Respiratory effort: normal Respiratory: bilateral: diminished, rales, negative: rhonchi, wheezing - Cardiovascular Rhythm: regular Heart Sounds: Present: S1 & S2 - Extremities Extremities: no ischemia Extremity abnormal: edema - Abdominal General gastrointestinal: soft, non-tender, non-distended, normal bowel sounds - Integumentary Integumentary: Present: clear, warm - Psychiatric Psychiatric: appropriate mood/affect, cooperative - Neurologic Neurologic: moves all extremities Results - Labs CBC & Chem 7: 10/01/18 04:23 10/02/18 05:20 Labs: Laboratory Last Values WBC 3.4 K/mm3 (4.5-11.0) L 10/01/18 04:23 RBC 3.18 M/mm3 (3.65-5.03) L 10/01/18 04:23 Hgb 10.9 gm/dl (10.1-14.3) 10/01/18 04:23 Hct 32.6 % (30.3-42.9) 10/01/18 04:23 MCV 103 fl (79-97) H 10/01/18 04:23 MCH 35 pg (28-32) H 10/01/18 04:23 MCHC 34 % (30-34) 10/01/18 04:23 RDW 15.4 % (13.2-15.2) H 10/01/18 04:23 Plt Count 204 K/mm3 (140-440) 10/01/18 04:23 Lymph % (Auto) 6.6 % (13.4-35.0) L 10/01/18 04:23 [place] % (Auto) 15.5 % (0.0-7.3) H 10/01/18 04:23 Eos % (Auto) 1.1 % (0.0-4.3) 10/01/18 04:23 Baso % (Auto) 0.3 % (0.0-1.8) 10/01/18 04:23 Lymph # 0.2 K/mm3 (1.2-5.4) L 10/01/18 04:23 [place] # 0.5 K/mm3 (0.0-0.8) 10/01/18 04:23 Eos # 0.0 K/mm3 (0.0-0.4) 10/01/18 04:23 Baso # 0.0 K/mm3 (0.0-0.1) 10/01/18 04:23 Seg Neutrophils % 76.5 % (40.0-70.0) H 10/01/18 04:23 Seg Neutrophils # 2.6 K/mm3 (1.8-7.7) 10/01/18 04:23 PT 14.8 Sec. (12.2-14.9) 09/29/18 07:19 INR 1.19 (0.87-1.13) H 09/29/18 07:19 APTT 35.9 Sec. (24.2-36.6) 09/29/18 07:19 1953.89 ng/mlDDU (0-234) H 09/20/18 09:24 Sodium 140 mmol/L (137-145) 10/02/18 05:20 Potassium 3.0 mmol/L (3.6-5.0) L 10/02/18 05:20 Chloride 91.4 mmol/L (98-107) L 10/02/18 05:20 Carbon Dioxide 39 mmol/L (22-30) H 10/02/18 05:20 13 mmol/L 10/02/18 05:20 BUN 26 mg/dL (7-17) H 10/02/18 05:20 1.1 mg/dL (0.7-1.2) 10/02/18 05:20 Estimated GFR 60 ml/min 10/02/18 05:20 24 % 10/02/18 05:20 Glucose 98 mg/dL (65-100) 10/02/18 05:20 5.5 % (4-6) 09/20/18 09:24 Calcium 8.2 mg/dL (8.4-10.2) L 10/02/18 05:20 Phosphorus 3.20 mg/dL (2.5-4.5) 10/02/18 05:20 Magnesium 1.70 mg/dL (1.7-2.3) 10/02/18 05:20 0.50 mg/dL (0.1-1.2) 09/21/18 08:18 < 0.2 mg/dL (0-0.2) 09/20/18 09:24 AST 32 units/L (5-40) 09/21/18 08:18 ALT 16 units/L (7-56) 09/21/18 08:18 91 units/L (35-129) 09/21/18 08:18 230 units/L (30-135) H 09/20/18 09:24 CK-MB (CK-2) 3.4 ng/mL (0.0-4.0) 09/20/18 09:24 CK-MB (CK-2) Rel Index 1.4 (0-4) 09/20/18 09:24 0.014 ng/mL (0.00-0.029) 09/20/18 09:24 NT-Pro-B Natriuret Pep 8916 pg/mL (0-900) H 09/20/18 09:24 5.2 g/dL (6.3-8.2) L 09/21/18 08:18 1.8 g/dL (3.9-5) L 09/21/18 08:18 0.5 % 09/21/18 08:18 Fluid Type Ascitic 09/29/18 12:40 Fluid Color Bloody 09/29/18 12:40 Fluid Appearance Turbid 09/29/18 12:40 Fluid WBC 48 /mm3 09/29/18 12:40 Fluid RBC 7850 /mm3 09/29/18 12:40 Fluid Seg Neutrophils 34.0 % 09/29/18 12:40 Fluid Lymphocytes 24.0 % 09/29/18 12:40 Fluid Reactive Lymphs 2.0 % 09/29/18 12:40 Fluid Monocytes 38.0 % 09/29/18 12:40 Fluid Eosinophils 1.0 % 09/29/18 12:40 Fluid Basophils 1.0 % 09/29/18 12:40 Fluid Albumin 0.4 g/dL 09/29/18 12:40 Active Medications - Current Medications Current Medications: Generic Name Dose Route Start Last Admin Trade Name Freq PRN Reason Stop Dose Admin Acetaminophen 650 mg 09/20/18 21:31 09/26/18 09:51 Tylenol PO 650 mg Q4H PRN Administration Pain MILD(1-3)/Fever >100.5/VILLAVICENCIO Albuterol 2.5 mg 09/25/18 08:00 10/02/18 08:33 Proventil IH 2.5 mg BIDRT RADHA Administration Budesonide 0.5 mg 09/25/18 08:00 10/02/18 08:34 Pulmicort IH 0.5 mg Q12HRT RADHA Administration Bupropion HCl 150 mg 09/20/18 22:00 10/02/18 09:50 Wellbutrin Sr PO Not Given BID RADHA Carvedilol 3.125 mg 09/20/18 22:00 10/02/18 09:49 Coreg PO 3.125 mg BID RADHA Administration Cyclobenzaprine HCl 10 mg 09/20/18 21:27 10/01/18 20:06 Flexeril PO 10 mg TID PRN Administration Muscle Spasm Diphenhydramine HCl 25 mg 09/20/18 22:00 10/02/18 09:50 Benadryl PO Not Given DAILY RADHA Furosemide 60 mg 09/25/18 18:00 10/02/18 05:40 Lasix IV 60 mg 0600,1800 RADHA Administration Hydralazine HCl 25 mg 09/20/18 22:00 10/02/18 05:40 Apresoline PO 25 mg Q8HR RADHA Administration Hydromorphone HCl 0.5 mg 09/20/18 21:31 10/01/18 23:50 Dilaudid IV 0.5 mg Q3H PRN Administration Pain , Severe (7-10) Levofloxacin/Dextrose 500 mg in 100 mls @ 100 mls/hr 09/26/18 14:00 10/02/18 09:49 Levaquin 500mg/100ml IV 100 mls/hr Q24HR RADHA Administration Protocol Metolazone 5 mg 09/25/18 13:00 10/02/18 09:49 Zaroxolyn PO 5 mg QDAY RADHA Administration Ondansetron HCl 4 mg 09/20/18 21:31 10/01/18 20:06 Zofran IV 4 mg Q8H PRN Administration Nausea And Vomiting Pantoprazole Sodium 40 mg 09/29/18 22:00 10/02/18 09:49 Protonix PO 40 mg BID RADHA Administration Polyethylene Glycol 17 gm 09/20/18 21:27 09/28/18 09:19 Miralax 3350 PO 17 gm BID PRN Administration Constipation Sertraline HCl 50 mg 09/20/18 22:00 10/02/18 09:49 Zoloft PO 50 mg DAILY RADHA Administration Sodium Chloride 10 ml 09/20/18 22:00 10/02/18 09:50 Sodium Chloride Flush Syringe 10 Ml IV 10 ml BID RADHA Administration Sodium Chloride 10 ml 09/20/18 21:31 Sodium Chloride Flush Syringe 10 Ml IV PRN PRN LINE FLUSH Spironolactone 25 mg 09/20/18 22:00 10/02/18 09:49 Aldactone PO 25 mg QDAY RADHA Administration Nutrition/Malnutrition Assess - Dietary Evaluation Nutrition/Malnutrition Findings: Nutrition Notes Start: 09/26/18 09:39 Freq: Status: Active Protocol: Document 09/30/18 15:48 RM (Rec: 09/30/18 15:54 RM [id number]) Nutrition Notes Initial or Follow up Reassessment Current Diagnosis COPD,Hypertension,Heart Failure,Stroke Other Pertinent Diagnosis AMI, Ascites Current Diet Cardiac Consistent CHO w/ Ensure High Protein BID Labs/Tests Reviewed Pertinent Medications Lasix Height 5 ft Weight 110.1 kg [place] Body Weight (kg) 45.45 BMI 47.4 Weight change and time frame [facility]. Wt loss likely d/t fluid change. Subjective/Other Information Pt stated that her appetite is poor and that she has stomach pain. Noted lunch at bedside w/25% eaten. Stated that she drinks the Ensure High Protein . Admitted to chewing difficulty. Percent of energy/protein needs met: 49%/83% Burn Absent Trauma Absent #1 Nutrition Diagnosis Inadequate oral intake Diagnosis Progress(for reassessment Continues documentation) Is patient on ventilator? No Is Patient Ambulatory and/or Out of Bed Yes REE-([facility]-ambulatory/OOB) [ 2018.250 [id number]] Kcal/Kg value to use for calculation 15 Approximate Energy Requirements Using 1652 kcal/Kg Calculation Used for Recommendations Kcal/kg Additional Notes Protein needs are 64-77g (1-1. 2g/kg using 63.84kg adjusted wt) Fluid needs are 1ml/kcal Nutrition Intervention Change Diet Order: Cardiac/Consistent CHO, Mech soft w/ground meat Add Supplement/Snack (indicate name/kcal Ensure High protein BID /protein ) Provides kCal: 320 Provides Protein (gm) 32 Goal #1 Meet at least 75% of kcal and protein needs Anticipated Discharge Needs: Cardiac Follow-Up By: 10/03/18 Additional Comments Follow for PO and ONS intakes
--- NOTE | 2018-10-02 12:21 | Progress Note ---
Assessment and Plan Chronic systolic heart failure Ascities s/p paracentesis Acute renal failure Hx of LUE DVT Hx of coronary artery disease cardiac cath 03/2018 revealed patent SVG to LAD, patent SVG to OM, patent SVG to PDA and patent diagonal stent, LVEF 10-15%. Hx of Ischemic cardiomyopathy ejection fraction 10-15% by echo 08/2018 Presence of single chamber cardiac defibrillator underlying paroxysmal atrial fibrillation previously treated with eliquis for oral anticoagulation therapy. Tobacco abuse Recommend: Fluid/sodium restriction. Daily weight. Continue medical therapy for chronic systolic heart failure, coronary artery disease and paroxysmal Afib. Subjective Date of service: 10/02/18 Principal diagnosis: vomiting blood Interval history: Patient is resting in bed comfortably. Patient reports she is diuresing well. Objective Vital Signs Temp Pulse Pulse Resp Resp Resp BP 10/02/18 09:49 102/56 10/02/18 08:20 98.0 F 61 18 102/56 10/02/18 05:40 63 146/55 10/02/18 04:17 97.8 F 63 18 146/55 10/02/18 00:20 20 10/01/18 23:55 20 10/01/18 23:50 18 10/01/18 23:33 98.1 F 68 18 131/72 10/01/18 21:41 78 120/62 10/01/18 21:40 78 120/62 10/01/18 20:10 20 10/01/18 19:36 67 10/01/18 19:24 75 16 10/01/18 19:10 10/01/18 19:09 77 16 10/01/18 18:57 97.4 F L 18 112/71 10/01/18 17:44 97.6 F 66 16 98/72 10/01/18 15:05 104/63 Pulse Ox 10/02/18 09:49 10/02/18 08:20 98 10/02/18 05:40 10/02/18 04:17 96 10/02/18 00:20 10/01/18 23:55 10/01/18 23:50 10/01/18 23:33 95 10/01/18 21:41 10/01/18 21:40 10/01/18 20:10 97 10/01/18 19:36 96 10/01/18 19:24 10/01/18 19:10 99 10/01/18 19:09 10/01/18 18:57 10/01/18 17:44 100 10/01/18 15:05 - Physical Examination General: No Apparent Distress, Other (Obese) HEENT: Positive: PERRL Neck: Positive: trachea midline Cardiac: Positive: irregularly irregular Lungs: Positive: Decreased Breath Sounds Neuro: Positive: Grossly Intact, Weakness Abdomen: Positive: Soft Extremities: Present: +2 Edema - Labs and Meds Comprehensive Metabolic Panel 10/02/18 Range/Units 05:20 Sodium 140 (137-145) mmol/L Potassium 3.0 L (3.6-5.0) mmol/L Chloride 91.4 L (98-107) mmol/L Carbon Dioxide 39 H (22-30) mmol/L BUN 26 H (7-17) mg/dL Creatinine 1.1 (0.7-1.2) mg/dL Glucose 98 (65-100) mg/dL Calcium 8.2 L (8.4-10.2) mg/dL
[2018-10-02] MEDS: ZOFRAN IV PRN (12:56)
[2018-10-02] MEDS: K-DUR PO SCH ×2 (13:01→17:52)
[2018-10-02] MEDS: TYLENOL PO PRN (17:56)
[2018-10-02] MEDS ORDERED: ZOFRAN IV PRN (18:45)
[2018-10-02] MEDS ORDERED: DILAUDID IV PRN (18:51)
[2018-10-03] MEDS: LASIX IV SCH ×2 (06:40→18:09)
[2018-10-03] MEDS: APRESOLINE PO SCH ×3 (06:41→23:30)
[2018-10-03] MEDS: PULMICORT IH SCH ×2 (08:56→21:25)
[2018-10-03] MEDS: PROVENTIL IH SCH ×2 (08:56→21:25)
--- NOTE | 2018-10-03 10:30 | Progress Note ---
Assessment and Plan Chronic systolic heart failure Ascities s/p paracentesis Acute renal failure Hx of LUE DVT Hx of coronary artery disease cardiac cath 03/2018 revealed patent SVG to LAD, patent SVG to OM, patent SVG to PDA and patent diagonal stent, LVEF 10-15%. Hx of Ischemic cardiomyopathy ejection fraction 10-15% by echo 08/2018 Presence of single chamber cardiac defibrillator underlying paroxysmal atrial fibrillation previously treated with eliquis for oral anticoagulation therapy. Tobacco abuse Recommend: Fluid/sodium restriction. Daily weight. Continue medical therapy for chronic systolic heart failure, coronary artery disease and paroxysmal Afib. Subjective Date of service: 10/03/18 Principal diagnosis: vomiting blood Interval history: Patient reports she is diuresing well. LE edema is slowly improving. Reports she hasn't had a BM in 2 days. Objective Vital Signs Temp Pulse Pulse Resp Resp BP Pulse Ox 10/03/18 10:00 100 10/03/18 09:11 57 L 18 10/03/18 08:56 59 L 18 10/03/18 08:21 98.3 F 62 18 105/54 100 10/03/18 05:47 60 10/03/18 00:11 98.4 F 67 20 102/54 100 10/02/18 22:22 70 18 10/02/18 22:04 58 L 16 98 10/02/18 22:00 18 96 10/02/18 21:27 61 111/65 10/02/18 20:21 98.0 F 61 20 111/65 98 10/02/18 17:50 93/57 10/02/18 16:36 97.9 F 18 87/55 10/02/18 13:01 98/58 10/02/18 12:47 98.4 F 61 20 98/58 100 10/02/18 10:35 98 - Physical Examination General: No Apparent Distress, Other (Obese) HEENT: Positive: PERRL Neck: Positive: trachea midline Cardiac: Positive: irregularly irregular Lungs: Positive: Decreased Breath Sounds Neuro: Positive: Grossly Intact, Weakness Abdomen: Positive: Soft Skin: Positive: Clear Extremities: Present: +2 Edema
[2018-10-03] MEDS: BENADRYL PO SCH (10:51)
[2018-10-03] MEDS: WELLBUTRIN SR PO SCH ×2 (10:51→23:27)
[2018-10-03] MEDS: ZOLOFT PO SCH (10:51)
[2018-10-03] MEDS: PROTONIX PO SCH ×2 (10:51→23:27)
[2018-10-03] MEDS: ALDACTONE PO SCH (10:51)
[2018-10-03] MEDS: ZAROXOLYN PO SCH (10:52)
[2018-10-03] MEDS: COREG PO SCH ×2 (10:52→22:50)
[2018-10-03] MEDS: SODIUM CHLORIDE FLUSH SYRINGE 10 ML IV SCH ×2 (10:53→23:31)
--- NOTE | 2018-10-03 18:46 | Progress Note ---
Assessment and Plan Assessment and plan: --Hypokalemia; replace with KCl Monitor levels --Hypomagnesemia; corrected --Coffee-ground emesis/ Hematemesis. H&H stable , no new episodes of GI bleeding GI evaluated in view of multiple comorbidities high risk for endoscopy Aspirin and Eliquis will be resumed after paracentesis --Abdominal pain with N/V/ascites. s/p ultrasound Paracentesis yesterday removed 1.9 L peritoneal fluid Follow-up fluid analysis --Acute on chronic combined systolic and diastolic heart failure Diuretic and the medications daily weights, strict I and O's and free water restriction., Milrinone drip as per efficiency expert --Dilated Ischemic cardiomyopathy. As above, EF 10-15% --Mastoiditis with probable sinusitis.Complains of persistent headache. CT scan of the head essentially negative except revealing mastoiditis. Continue IV Levaquin. --Acute on chronic resp failure Supplemental Oxygen --Coronary artery disease status post CABG --History of DVT left cephalic vein and left int jugular vein On Eliquis --PAF:Continue Eliquis --History of COPD; nebs/inhalers/home oxygen --Morbid Obesity; BMI 46.4 Advised status weight reduction diet modification and exercise When medically stable --Deconditioning: PT evaluation. --Full code status --Discharge planning; possible discharge home with home health versus home hospice When stable Monitor closely and adjust management as needed Possible discharge in 1-2 days if stable History Interval history: Patient seen and examined medical records reviewed No new complaints,Patient feels better Cardiology optimizing medications Vital signs noted Hospitalist Physical - Constitutional Vitals: Temp Pulse Resp BP Pulse Ox 98.6 F 68 20 108/60 97 10/03/18 16:28 10/03/18 16:28 10/03/18 16:28 10/03/18 16:28 10/03/18 16:28 General appearance: Present: no acute distress, well-nourished, obese (morbidly obese) - EENT Eyes: Present: PERRL, EOM intact - Neck Neck: Present: supple, normal ROM - Respiratory Respiratory effort: normal Respiratory: bilateral: diminished, rales, negative: rhonchi, wheezing - Cardiovascular Rhythm: regular Heart Sounds: Present: S1 & S2 - Extremities Extremities: no ischemia Extremity abnormal: edema - Abdominal General gastrointestinal: soft, non-tender, non-distended, normal bowel sounds - Integumentary Integumentary: Present: clear, warm - Psychiatric Psychiatric: appropriate mood/affect, cooperative - Neurologic Neurologic: CNII-XII intact, moves all extremities Results - Labs CBC & Chem 7: 10/01/18 04:23 10/02/18 05:20 Labs: Laboratory Last Values WBC 3.4 K/mm3 (4.5-11.0) L 10/01/18 04:23 RBC 3.18 M/mm3 (3.65-5.03) L 10/01/18 04:23 Hgb 10.9 gm/dl (10.1-14.3) 10/01/18 04:23 Hct 32.6 % (30.3-42.9) 10/01/18 04:23 MCV 103 fl (79-97) H 10/01/18 04:23 MCH 35 pg (28-32) H 10/01/18 04:23 MCHC 34 % (30-34) 10/01/18 04:23 RDW 15.4 % (13.2-15.2) H 10/01/18 04:23 Plt Count 204 K/mm3 (140-440) 10/01/18 04:23 Lymph % (Auto) 6.6 % (13.4-35.0) L 10/01/18 04:23 [place] % (Auto) 15.5 % (0.0-7.3) H 10/01/18 04:23 Eos % (Auto) 1.1 % (0.0-4.3) 10/01/18 04:23 Baso % (Auto) 0.3 % (0.0-1.8) 10/01/18 04:23 Lymph # 0.2 K/mm3 (1.2-5.4) L 10/01/18 04:23 [place] # 0.5 K/mm3 (0.0-0.8) 10/01/18 04:23 Eos # 0.0 K/mm3 (0.0-0.4) 10/01/18 04:23 Baso # 0.0 K/mm3 (0.0-0.1) 10/01/18 04:23 Seg Neutrophils % 76.5 % (40.0-70.0) H 10/01/18 04:23 Seg Neutrophils # 2.6 K/mm3 (1.8-7.7) 10/01/18 04:23 PT 14.8 Sec. (12.2-14.9) 09/29/18 07:19 INR 1.19 (0.87-1.13) H 09/29/18 07:19 APTT 35.9 Sec. (24.2-36.6) 09/29/18 07:19 1953.89 ng/mlDDU (0-234) H 09/20/18 09:24 Sodium 140 mmol/L (137-145) 10/02/18 05:20 Potassium 3.0 mmol/L (3.6-5.0) L 10/02/18 05:20 Chloride 91.4 mmol/L (98-107) L 10/02/18 05:20 Carbon Dioxide 39 mmol/L (22-30) H 10/02/18 05:20 13 mmol/L 10/02/18 05:20 BUN 26 mg/dL (7-17) H 10/02/18 05:20 1.1 mg/dL (0.7-1.2) 10/02/18 05:20 Estimated GFR 60 ml/min 10/02/18 05:20 24 % 10/02/18 05:20 Glucose 98 mg/dL (65-100) 10/02/18 05:20 5.5 % (4-6) 09/20/18 09:24 Calcium 8.2 mg/dL (8.4-10.2) L 10/02/18 05:20 Phosphorus 3.20 mg/dL (2.5-4.5) 10/02/18 05:20 Magnesium 1.70 mg/dL (1.7-2.3) 10/02/18 05:20 0.50 mg/dL (0.1-1.2) 09/21/18 08:18 < 0.2 mg/dL (0-0.2) 09/20/18 09:24 AST 32 units/L (5-40) 09/21/18 08:18 ALT 16 units/L (7-56) 09/21/18 08:18 91 units/L (35-129) 09/21/18 08:18 230 units/L (30-135) H 09/20/18 09:24 CK-MB (CK-2) 3.4 ng/mL (0.0-4.0) 09/20/18 09:24 CK-MB (CK-2) Rel Index 1.4 (0-4) 09/20/18 09:24 0.014 ng/mL (0.00-0.029) 09/20/18 09:24 NT-Pro-B Natriuret Pep 8916 pg/mL (0-900) H 09/20/18 09:24 5.2 g/dL (6.3-8.2) L 09/21/18 08:18 1.8 g/dL (3.9-5) L 09/21/18 08:18 0.5 % 09/21/18 08:18 Fluid Type Ascitic 09/29/18 12:40 Fluid Color Bloody 09/29/18 12:40 Fluid Appearance Turbid 09/29/18 12:40 Fluid WBC 48 /mm3 09/29/18 12:40 Fluid RBC 7850 /mm3 09/29/18 12:40 Fluid Seg Neutrophils 34.0 % 09/29/18 12:40 Fluid Lymphocytes 24.0 % 09/29/18 12:40 Fluid Reactive Lymphs 2.0 % 09/29/18 12:40 Fluid Monocytes 38.0 % 09/29/18 12:40 Fluid Eosinophils 1.0 % 09/29/18 12:40 Fluid Basophils 1.0 % 09/29/18 12:40 Fluid Albumin 0.4 g/dL 09/29/18 12:40 Active Medications - Current Medications Current Medications: Generic Name Dose Route Start Last Admin Trade Name Freq PRN Reason Stop Dose Admin Acetaminophen 650 mg 09/20/18 21:31 10/02/18 17:56 Tylenol PO 650 mg Q4H PRN Administration Pain MILD(1-3)/Fever >100.5/VILLAVICENCIO Albuterol 2.5 mg 09/25/18 08:00 10/03/18 08:56 Proventil IH 2.5 mg BIDRT RADHA Administration Budesonide 0.5 mg 09/25/18 08:00 10/03/18 08:56 Pulmicort IH 0.5 mg Q12HRT RADHA Administration Bupropion HCl 150 mg 09/20/18 22:00 10/03/18 10:51 Wellbutrin Sr PO 150 mg BID RADHA Administration Carvedilol 3.125 mg 09/20/18 22:00 10/03/18 10:52 Coreg PO 3.125 mg BID RADHA Administration Cyclobenzaprine HCl 10 mg 09/20/18 21:27 10/01/18 20:06 Flexeril PO 10 mg TID PRN Administration Muscle Spasm Diphenhydramine HCl 25 mg 09/20/18 22:00 10/03/18 10:51 Benadryl PO 25 mg DAILY RADHA Administration Furosemide 60 mg 09/25/18 18:00 10/03/18 18:09 Lasix IV 60 mg 0600,1800 RADHA Administration Hydralazine HCl 25 mg 09/20/18 22:00 10/03/18 14:00 Apresoline PO Not Given Q8HR RADHA Hydromorphone HCl 0.5 mg 10/02/18 18:51 Dilaudid IV BID PRN Pain , Severe (7-10) Metolazone 5 mg 09/25/18 13:00 10/03/18 10:52 Zaroxolyn PO 5 mg QDAY RADHA Administration Ondansetron HCl 4 mg 10/02/18 18:45 10/03/18 18:14 Zofran IV 4 mg Q4H PRN Administration Nausea And Vomiting Pantoprazole Sodium 40 mg 09/29/18 22:00 10/03/18 10:51 Protonix PO 40 mg BID RADHA Administration Polyethylene Glycol 17 gm 09/20/18 21:27 09/28/18 09:19 Miralax 3350 PO 17 gm BID PRN Administration Constipation Sertraline HCl 50 mg 09/20/18 22:00 10/03/18 10:51 Zoloft PO 50 mg DAILY RADHA Administration Sodium Chloride 10 ml 09/20/18 22:00 10/03/18 10:53 Sodium Chloride Flush Syringe 10 Ml IV 10 ml BID RADHA Administration Sodium Chloride 10 ml 09/20/18 21:31 Sodium Chloride Flush Syringe 10 Ml IV PRN PRN LINE FLUSH Spironolactone 25 mg 09/20/18 22:00 10/03/18 10:51 Aldactone PO 25 mg QDAY RADHA Administration Nutrition/Malnutrition Assess - Dietary Evaluation Nutrition/Malnutrition Findings: Nutrition Notes Start: 09/26/18 09:39 Freq: Status: Active Protocol: Document 10/03/18 09:41 LP (Rec: 10/03/18 09:47 LP [id number]) Nutrition Notes Initial or Follow up Reassessment Current Diagnosis COPD,Hypertension,Heart Failure,Stroke Other Pertinent Diagnosis AMI, Ascites Current Diet Mechanical soft ground meatCardiac Consistent CHO w/ Ensure High Protein BID Labs/Tests K 3 Pertinent Medications Reviewed Height 5 ft Weight 110.6 kg [place] Body Weight (kg) 45.45 BMI 47.6 Subjective/Other Information Pt states not eating well. Eating grits and oatmeal in the AM, but having abdominal pain. Pt states drinking 100% of supplements. Percent of energy/protein needs met: 50%/67% Burn Absent Trauma Absent #1 Nutrition Diagnosis Inadequate oral intake Diagnosis Progress(for reassessment Continues documentation) Is patient on ventilator? No Is Patient Ambulatory and/or Out of Bed Yes REE-([place]-St. Jeor-ambulatory/OOB) [ 2023.750 NUTR.MSJOOB] Kcal/Kg value to use for calculation 15 Approximate Energy Requirements Using 1659 kcal/Kg Calculation Used for Recommendations Kcal/kg Additional Notes Protein needs are 64-77g (1-1. 2g/kg using 63.84kg adjusted wt) Fluid needs are 1ml/kcal Nutrition Intervention Change Diet Order: Cardiac/Consistent CHO, Mech soft w/ground meat Add Supplement/Snack (indicate name/kcal Increase Ensure High protein /protein ) TID Provides kCal: 480 Provides Protein (gm) 48 Goal #1 Meet at least 75% of kcal and protein needs Anticipated Discharge Needs: Cardiac Follow-Up By: 10/08/18 Additional Comments Follow for intakes, ONS tolerance
[2018-10-03] MEDS: FLEXERIL PO PRN (23:30)
[2018-10-04] MEDS: LASIX IV SCH (06:05)
[2018-10-04] MEDS: APRESOLINE PO SCH ×2 (06:06→15:18)
[2018-10-04] MEDS: PULMICORT IH SCH (09:29)
[2018-10-04] MEDS: PROVENTIL IH SCH (09:29)
[2018-10-04] MEDS: ZOLOFT PO SCH (09:54)
[2018-10-04] MEDS: BENADRYL PO SCH (09:54)
[2018-10-04] MEDS: PROTONIX PO SCH (09:54)
[2018-10-04] MEDS: SODIUM CHLORIDE FLUSH SYRINGE 10 ML IV SCH (09:54)
[2018-10-04] MEDS: WELLBUTRIN SR PO SCH (09:54)
[2018-10-04] MEDS: COREG PO SCH (09:54)
[2018-10-04] MEDS: ALDACTONE PO SCH (09:54)
[2018-10-04] MEDS: ZAROXOLYN PO SCH (09:54)
--- NOTE | 2018-10-04 11:39 | Progress Note ---
Assessment and Plan Acute on Chronic systolic heart failure Ascites s/p paracentesis Acute renal failure Hx of LUE DVT Hx of coronary artery disease cardiac cath 03/2018 revealed patent SVG to LAD, patent SVG to OM, patent SVG to PDA and patent diagonal stent, LVEF 10-15%. Hx of Ischemic cardiomyopathy ejection fraction 10-15% by echo 08/2018 Presence of single chamber cardiac defibrillator underlying paroxysmal atrial fibrillation previously treated with eliquis for oral anticoagulation therapy. Tobacco abuse Recommend: Fluid/sodium restriction. Daily weight. Continue medical therapy for chronic systolic heart failure, coronary artery disease and paroxysmal Afib. Continue to replace potassium Upon discharge, send home on torsemide 40 mg po bid and metolazone 5 mg po daily with potassium replacement Subjective Date of service: 10/04/18 Principal diagnosis: vomiting blood Interval history: Patient denies chest pain or shortness of breath No events on tele Objective Vital Signs Temp Pulse Pulse Resp Resp BP Pulse Ox 10/04/18 09:31 97 10/04/18 09:25 68 17 10/04/18 09:18 97.5 F L 66 18 104/48 99 10/04/18 06:06 89 110/56 10/04/18 05:14 98.3 F 64 18 98/63 94 10/03/18 23:44 98.1 F 59 L 18 102/52 98 10/03/18 23:30 71 105/51 10/03/18 22:50 71 108/51 10/03/18 22:00 22 92 10/03/18 21:28 65 20 96 10/03/18 20:03 98.3 F 70 18 108/51 93 10/03/18 16:28 98.6 F 68 20 108/60 97 10/03/18 12:42 97.9 F 63 18 95/49 99 - Physical Examination General: No Apparent Distress, Other (Obese) HEENT: Positive: PERRL Neck: Positive: trachea midline Cardiac: Positive: Reg Rate and Rhythm Lungs: Positive: Decreased Breath Sounds Neuro: Positive: Grossly Intact, Weakness Abdomen: Positive: Soft Skin: Positive: Clear Extremities: Present: +2 Edema - Imaging and Cardiology EKG: report reviewed (A fi\b 67 Low voltage)
[2018-10-04] MEDS ORDERED: K-DUR PO ONE ×2 (11:56→14:30)
--- NOTE | 2018-10-04 12:02 | Discharge Summary ---
Providers - Providers Date of Admission: 09/20/18 13:16 Date of discharge: 10/04/18 Attending physician: SEBASTIAN GUDINO 09/20/18 21:31 Consult to Physician [CONS] Routine Comment: Consulting Provider: JUWAN HOPE Physician Instructions: Reason For Exam: Dyspnea 09/27/18 10:52 Physical Therapy Evaluation and Treat [CONS] Routine Comment: Reason For Exam: deconditioning 09/27/18 18:11 Consult to Physician [CONS] Routine Comment: Consulting Provider: LATISHA ZAPATA Physician Instructions: Reason For Exam: vomiting blood x 1 Primary care physician: [facility], Hospitalization Reason for admission: Coffee ground emesis/hematemesis Condition: Stable Pertinent studies: CXR;mild CHF,Dinesh pleural effusin/atelectasis VQ scan: neg for PE,cardiomegaley,dinesh pl effusion CT head: no acute abnormality,pld infarct,Dinesh mastoiditis CT abdomen:Ascitis,cardiomegaly,dinesh pl effusion US guided paracentesis: 1-9 lt removed,neg for SBP Hospital course: 67-year-old female with history of HTN,CAD and s/p CABG X3 states woke at about 4 in the morning with chest pain. She is home O2 dependent. She is status post myocardial infarction and states that she has a history of a blood clot in her upper arm and perhaps neck. She has recently been admitted to this facility August 2018. Chest pain non radiating.No diaphoresis or sob.Pain is 5/10.No exacerbating or relieving factor. Patient had coffee ground emesis/hematemesis,evaluated by GI,not a candidate for EGD,adv med management Patient had ascitis,s/p paracentesis and removal of 1.9 lt ascitic fluid,neg for SBP Evaluated by cardiology and meds were optimised.Hospice was consulted Today pt is comfortable,no new complaints,vital igns stable,physical exam unremarkable. Stable with guarded prognosis at discharge Patient advised to f/u PMD,Cardiology,GI upon DC per schedule Discharge Diagnosis: --Coffee-ground emesis/ Hematemesis. H&H stable , no new episodes of GI bleeding GI evaluated in view of multiple comorbidities high risk for endoscopy Aspirin and Eliquis will be resumed after paracentesis --Abdominal pain with N/V/ascites. s/p ultrasound Paracentesis yesterday removed 1.9 L peritoneal fluid Follow-up fluid analysis --Acute on chronic combined systolic and diastolic heart failure Diuretic and the medications daily weights, strict I and O's and free water restriction., Milrinone drip as per coil connector --Hypokalemia; replace with KCl --Hypomagnesemia; corrected --Dilated Ischemic cardiomyopathy. As above, EF 10-15% --Mastoiditis with probable sinusitis.Complains of persistent headache. CT scan of the head essentially negative except revealing mastoiditis. received anti biotics --Acute on chronic resp failure, Supplemental Oxygen --Coronary artery disease status post CABG --History of DVT left cephalic vein and left int jugular vein On Eliquis --PAF:Continue Eliquis --History of COPD; nebs/inhalers/home oxygen --Morbid Obesity; BMI 46.4 Advised status weight reduction diet modification and exercise When medically stable --Deconditioning: PT evaluation. --Full code status Stable at discharge Disposition: [id number] HOME UNDER HOME [facility] Time spent for discharge: 33 min Core Measure Documentation - Palliative Care Palliative Care/ Comfort Measures: Not Applicable - Core Measures Any of the following diagnoses?: heart failure - Heart Failure Discharge Requirements VERÓNICA/ARB for LVSD if EF <40%: No Reason for no VERÓNICA/ARB: Allergy or sensitivity Beta kendall at discharge: Yes Exam - Constitutional Vitals: Temp Pulse Resp BP Pulse Ox 97.5 F L 68 17 104/48 97 10/04/18 09:18 10/04/18 09:25 10/04/18 09:25 10/04/18 09:18 10/04/18 09:31 General appearance: Present: no acute distress, well-nourished, obese - EENT Eyes: Present: PERRL, EOM intact - Neck Neck: Present: supple, normal ROM - Respiratory Respiratory effort: normal Respiratory: bilateral: diminished, rales, negative: rhonchi, wheezing - Cardiovascular Rhythm: regular Heart Sounds: Present: S1 & S2 - Extremities Extremities: no ischemia Extremity abnormal: edema - Abdominal General gastrointestinal: Present: soft, non-tender, non-distended, normal bowel sounds - Integumentary Integumentary: Present: clear, warm - Musculoskeletal Musculoskeletal: strength equal bilaterally, generalized weakness - Psychiatric Psychiatric: appropriate mood/affect, cooperative - Neurologic Neurologic: moves all extremities Plan Activity: advance as tolerated, fall precautions Diet: low salt, other (cardiac diet) Special Instructions: restrict fluid intake to (< 1200ml/24 hrs) Additional Instructions: Continue home oxygen as before. Fall precautions. Restrict fluid intake to less than 1200 mL in 24 hours Prescriptions: Torsemide [Demadex] 40 mg PO BID #60 tablet Potassium Chloride [K-Dur] 20 meq PO QDAY #7 tablet Magnesium Oxide [Mag-Ox] 400 mg PO QDAY #7 tablet metOLazone [Zaroxolyn] 5 mg PO QDAY #30 tablet
[2018-10-04 13:49] VITALS: BP 100/58
[2018-10-04] MEDS ORDERED: MAG-OX PO SCH (15:00)
[2018-10-05] MEDS ORDERED: K-DUR PO SCH (10:00)
== END 2018-10-04 17:58 | disposition home health service (06) | DRG 291 ==
LOC: ED 08:13 → 4A 13:16
PROVIDERS: ADMIT Internal Medicine; ATTEND Internal Medicine
PROC: 0W9G3ZZ Drainage of Peritoneal Cavity, Percutaneous Approach (ICD-10-PCS; principal; 2018-09-29)
DX: I11.0 Hypertensive heart disease with heart failure (principal); J96.20 Acute and chronic respiratory failure, unspecified whether with hypoxia or hypercapnia; Z68.42 Body mass index [BMI] 45.0-49.9, adult; K92.0 Hematemesis; R18.8 Other ascites; N17.9 Acute kidney failure, unspecified; I50.43 Acute on chronic combined systolic (congestive) and diastolic (congestive) heart failure; I42.0 Dilated cardiomyopathy; I48.0 Paroxysmal atrial fibrillation; J44.9 Chronic obstructive pulmonary disease, unspecified; I25.5 Ischemic cardiomyopathy; I25.2 Old myocardial infarction; E66.01 Morbid (severe) obesity due to excess calories; I25.10 Atherosclerotic heart disease of native coronary artery without angina pectoris; F32.9 Major depressive disorder, single episode, unspecified; F17.210 Nicotine dependence, cigarettes, uncomplicated; E78.2 Mixed hyperlipidemia; K59.00 Constipation, unspecified; R51 Headache; H70.93 Unspecified mastoiditis, bilateral; J32.9 Chronic sinusitis, unspecified; E87.6 Hypokalemia; E83.42 Hypomagnesemia; Z95.1 Presence of aortocoronary bypass graft; Z99.81 Dependence on supplemental oxygen; Z79.82 Long term (current) use of aspirin; Z88.0 Allergy status to penicillin; Z88.2 Allergy status to sulfonamides; Z86.73 Personal history of transient ischemic attack (TIA), and cerebral infarction without residual deficits; Z95.810 Presence of automatic (implantable) cardiac defibrillator; Z86.718 Personal history of other venous thrombosis and embolism; Z79.01 Long term (current) use of anticoagulants; Z95.5 Presence of coronary angioplasty implant and graft
CPT/HCPCS: 36415; 49083; 70450; 71045; 74176; 78582; 80048; 80053; 80076; 82040; 82550; 82553; 83036; 83735; 83880; 84100; 84132; 84484; 85025; 85027; 85379; 85610; 85730; 87116; 88112; 88305; 88341; 88342; 89051; 93005; 93010; 94640; 94760; G0378; A9540; A9558; C9113; J1170; J1940; J1956; J2260; J2270; J2405; J3475; J3480

== ENCOUNTER 2018-11-08 02:14 | Inpatient (IN) | payer MEDICARE ==
[2018-11-08] MEDS ORDERED: ASPIRIN PO ONE (02:55)
--- NOTE | 2018-11-08 03:35 | XRay Report ---
CHEST 1 VIEW INDICATION / CLINICAL INFORMATION: Chest Pain. COMPARISON: 09/20/2018 FINDINGS: SUPPORT DEVICES: Left-sided pacemaker HEART / MEDIASTINUM: Cardiomegaly LUNGS / PLEURA: Mild interstitial pulmonary edema No pneumothorax. ADDITIONAL FINDINGS: No significant additional findings. IMPRESSION: Marked cardiomegaly with mild interstitial pulmonary edema Signer Name: Juan Miguel Guerin MD FACR Signed: 11/08/2018 3:31 AM Workstation Name: [id number]
[2018-11-08 03:40] LABS: Basophils % (Auto) 0.3 % (0.0-1.8); Eosinophils % (Auto) 0.6 % (0.0-4.3); Hematocrit 35.8 % (30.3-42.9); Hemoglobin 11.6 gm/dl (10.1-14.3); Lymphocytes # (Auto) 0.2 K/mm3 (1.2-5.4); Lymphocytes % (Auto) 4.6 % (13.4-35.0); Mean Corpuscular HGB Conc 32 % (30-34); Mean Corpuscular Volume 106 fl (79-97); Monocytes # (Auto) 0.5 K/mm3 (0.0-0.8); Monocytes % (Auto) 11.5 % (0.0-7.3); Platelet Count 178 K/mm3 (140-440); Red Blood Count 3.37 M/mm3 (3.65-5.03); Red Cell Distribution Width 17.1 % (13.2-15.2)
[2018-11-08 04:01] LABS: Calcium 8.1 mg/dL (8.4-10.2)
[2018-11-08 05:17] LABS: Chol/HDL Ratio 5.33 %
[2018-11-08] MEDS ORDERED: LASIX IV ONE (06:12)
--- NOTE | 2018-11-08 06:17 | Emergency Department Report ---
HPI - General Chief Complaint: Chest Pain Time Seen by Provider: 11/08/18 06:04 - HPI HPI: Room 2 The patient is a 68-year-old female presenting with chief complaint chest pain. The patient states the past 2-3 days she's had intermittent substernal chest pain associated with nausea/vomiting, shortness of breath and diaphoresis. The patient states this evening she slid off the bed and could not get up off the floor which prompted her to call EMS. She informed them of her chest pain she is transported to the ED for further evaluation. The patient has a history of CHF and coronary artery disease reports having had 2 cardiac stents placed 2 years ago Location: Chest Duration: [See above] Quality: [See above] Severity: [See above] Modifying factors: [see above] Context: [see above] Mode of transportation: [not driving] ED Past Medical Hx - Past Medical History Hx Hypertension: Yes Hx CVA: Yes (2016) Hx Heart Attack/AMI: Yes (2008) Hx Congestive Heart Failure: Yes Hx COPD: Yes (3 L nasal cannula) - Surgical History Past Surgical History?: Yes Hx Open Heart Surgery: Yes (CABG 3v) Hx Pacemaker: Yes (AICD) Additional Surgical History: Bypass in 2018 - Family History Family history: no significant - Social History Smoking Status: Current Every Day Smoker (1/3 pack per day) Substance Use Type: None - Medications Home Medications: Home Medications Medication Instructions Recorded Confirmed Last Taken Type Aspirin [Adult Aspirin] 81 mg PO DAILY 02/24/18 09/20/18 05/09/18 History Spironolactone [Aldactone] 25 mg PO QDAY 02/24/18 09/20/18 05/09/18 History buPROPion SR [Wellbutrin SR] 150 mg PO BID 02/24/18 09/20/18 05/09/18 History Albuterol Sulfate [Ventolin HFA] 1 puff IH Q6H PRN 30 Days 03/03/18 09/20/18 05/09/18 Rx hfa.aer.ad Cyclobenzaprine [Flexeril 10 MG 10 mg PO TID PRN 05/10/18 09/20/18 05/09/18 History TAB] Diphenhydramine HCl [Allergy 25 mg PO DAILY 05/10/18 09/20/18 05/09/18 History Relief] ISOSORBIDE MONOnitrate [Imdur ER] 60 mg PO QDAY 05/10/18 09/20/18 05/09/18 History Sertraline HCl [Zoloft] 50 mg PO DAILY 05/10/18 09/20/18 05/09/18 History hydrALAZINE [Apresoline TAB] 25 mg PO Q8HR 05/10/18 09/20/18 05/09/18 History Apixaban [Eliquis] 5 mg PO Q12HR #60 tablet 07/02/18 09/20/18 Unknown Rx Pantoprazole [Protonix TAB] 40 mg PO QDAY #30 tablet 07/02/18 09/20/18 Unknown Rx Polyethylene Glycol 3350 [Miralax 17 gm PO BID PRN #30 powd.pack 07/02/18 09/20/18 Unknown Rx 3350] Carvedilol [Coreg] 3.125 mg PO BID #60 tablet 09/10/18 09/20/18 Unknown Rx Magnesium Oxide [Mag-Ox] 400 mg PO QDAY #7 tablet 10/04/18 Unknown Rx Potassium Chloride [K-Dur] 20 meq PO QDAY #7 tablet 10/04/18 Unknown Rx Torsemide [Demadex] 40 mg PO BID #60 tablet 10/04/18 Unknown Rx metOLazone [Zaroxolyn] 5 mg PO QDAY #30 tablet 10/04/18 Unknown Rx ED Review of Systems ROS: Stated complaint: CHEST PAIN Other details as noted in HPI Constitutional: diaphoresis Eyes: denies: eye pain ENT: denies: throat pain Respiratory: shortness of breath Cardiovascular: chest pain Endocrine: no symptoms reported Gastrointestinal: nausea, vomiting Genitourinary: denies: dysuria Musculoskeletal: denies: back pain Neurological: denies: headache Physical Exam - Physical Exam Vital Signs: Vital Signs 11/08/18 06:06 Pulse Rate 59 L Respiratory 14 Rate Blood Pressure 122/69 [Left] O2 Sat by Pulse 100 Oximetry Physical Exam: GENERAL: The patient is well-developed well-nourished female lying on stretcher not appearing to be in acute distress. [] HEENT: Normocephalic. Atraumatic. Extraocular motions are intact. Patient has moist mucous membranes. NECK: Supple. Trachea midline CHEST/LUNGS: Clear to auscultation. There is no respiratory distress noted. HEART/CARDIOVASCULAR: Irregularly irregular. There is no tachycardia. There is no gallop rub or murmur. ABDOMEN: Abdomen is soft, nontender. Patient has normal bowel sounds. There is no abdominal distention. SKIN: There is no rash. There is no diaphoresis. NEURO: The patient is awake, alert, and oriented. The patient is cooperative. The patient has normal speech MUSCULOSKELETAL: There is no evidence of acute injury. ED Course Vital Signs 11/08/18 06:06 Pulse Rate 59 L Respiratory 14 Rate Blood Pressure 122/69 [Left] O2 Sat by Pulse 100 Oximetry ED Medical Decision Making - Lab Data Result diagrams: 11/08/18 03:09 11/08/18 03:09 Laboratory Tests 11/08/18 11/08/18 03:09 03:09 WBC 4.6 RBC 3.37 L Hgb 11.6 Hct 35.8 MCV 106 H MCH 34 H MCHC 32 RDW 17.1 H Plt Count 178 Lymph % (Auto) 4.6 L [place] % (Auto) 11.5 H Eos % (Auto) 0.6 Baso % (Auto) 0.3 Lymph # 0.2 L Isabella # 0.5 Eos # 0.0 Baso # 0.0 Seg Neutrophils % 83.0 H Seg Neutrophils # 3.8 Sodium 135 L Potassium 5.0 Chloride 100.3 Carbon Dioxide 30 Anion Gap 10 BUN 29 H Creatinine 1.4 H Estimated GFR 45 BUN/Creatinine Ratio 21 Glucose 92 Calcium 8.1 L Troponin T 0.042 H Triglycerides 107 Cholesterol 176 LDL Cholesterol Direct 137 H HDL Cholesterol 33 L Cholesterol/HDL Ratio 5.33 - EKG Data -: EKG Interpreted by Me Rate: normal (68 bpm) - EKG Data Interpretation: unchanged when compared t (09/20/2018) - Radiology Data Radiology results: report reviewed (chest x-ray), image reviewed (chest x-ray) interpreted by me: Chest [id number] [facility] [address] [place] [address] XRay Report Signed Patient: PUJA HEDRICK MR#: [id number] : 1950 Acct:[id number] Age/Sex: 68 / F ADM Date: 11/08/18 Loc: ED Attending Dr: Ordering Physician: ED DOC, Date of Service: 11/08/18 Procedure(s): XR chest 1V ap Accession Number(s): [id number] cc: ED DOC, Fluoro Time In Minutes: CHEST 1 VIEW INDICATION / CLINICAL INFORMATION: Chest Pain. COMPARISON: 09/20/2018 FINDINGS: SUPPORT DEVICES: Left-sided pacemaker HEART / MEDIASTINUM: Cardiomegaly LUNGS / PLEURA: Mild interstitial pulmonary edema No pneumothorax. ADDITIONAL FINDINGS: No significant additional findings. IMPRESSION: Marked cardiomegaly with mild interstitial pulmonary edema Signer Name: Juan Miguel Guerin MD FACR Signed: 11/08/2018 3:31 AM Workstation Name: [id number] Transcribed By: MS Dictated By: Juan Miguel Guerin MD Electronically Authenticated By: Juan Miguel Guerin MD Signed Date/Time: 11/08/18330 DD/ 9 TD/TT: - Differential Diagnosis ACS, CHF exacerbation, pericarditis, GERD Critical care attestation.: If time is entered above; I have spent that time in minutes in the direct care of this critically ill patient, excluding procedure time. ED Disposition Clinical Impression: Chest pain Disposition: -09 OP ADMIT IP TO THIS HOSP Is pt being admited?: Yes Does the pt Need Aspirin: Yes Condition: Fair Instructions: Chest Pain (ED) Referrals: DAVID OMALLEY MD [Primary Care Provider] - 3-5 Days Time of Disposition: 07:06 (hospitalist paged)
[2018-11-08] MEDS: DILAUDID IV PRN (17:16)
[2018-11-09] MEDS: DILAUDID IV PRN ×2 (00:12→12:05)
[2018-11-09] MEDS ORDERED: PROAIR IH PRN (07:52)
[2018-11-09] MEDS: APRESOLINE PO SCH ×3 (09:00→22:21)
[2018-11-09] MEDS ORDERED: MIRALAX 3350 PO PRN (10:00)
[2018-11-09] MEDS ORDERED: K-DUR PO SCH (10:00)
[2018-11-09] MEDS ORDERED: IMDUR PO SCH (10:00)
[2018-11-09] MEDS ORDERED: NON-FORMULARY (Torsemide [Demadex] 40 MG) PO SCH (10:00)
[2018-11-09] MEDS: HALFPRIN EC PO SCH (10:01)
[2018-11-09] MEDS: WELLBUTRIN SR PO SCH ×2 (10:02→22:25)
[2018-11-09] MEDS: ELIQUIS PO SCH ×2 (10:02→22:24)
[2018-11-09] MEDS: ALDACTONE PO SCH (10:02)
[2018-11-09] MEDS: ZAROXOLYN PO SCH (10:03)
[2018-11-09] MEDS: PROTONIX PO SCH (10:03)
[2018-11-09] MEDS: ZOLOFT PO SCH (10:03)
[2018-11-09] MEDS: BENADRYL PO SCH (10:03)
[2018-11-09] MEDS: MAG-OX PO SCH (10:03)
[2018-11-09] MEDS: COREG PO SCH ×2 (10:04→22:23)
--- NOTE | 2018-11-09 10:36 | Progress Note ---
Assessment and Plan - Patient Problems (1) Acute chest pain Current Visit: No Status: Acute Plan to address problem: Chest pain -r/o [place] protocol Serial Troponins Lexiscan on saturday (2) Hyperlipidemia Current Visit: No Status: Chronic Qualifiers: Hyperlipidemia type: mixed hyperlipidemia Qualified Code(s): E78.2 - Mixed hyperlipidemia Plan to address problem: Cont statins (3) Hypertension Current Visit: No Status: Chronic Qualifiers: Hypertension type: essential hypertension Qualified Code(s): I10 - Essential (primary) hypertension Plan to address problem: Cont antihypertensives (4) COPD (chronic obstructive pulmonary disease) Current Visit: Yes Status: Chronic Qualifiers: Emphysema type: unspecified Plan to address problem: On Bronchodilators (5) Depression Current Visit: Yes Status: Chronic Qualifiers: Depression Type: unspecified Qualified Code(s): F32.9 - Major depressive di sorder, single episode, unspecified Plan to address problem: On welbutrin (6) CAD (coronary artery disease) Current Visit: Yes Status: Chronic Qualifiers: Coronary Disease-Associated Artery/Lesion type: [place] artery [place] vs. transplanted heart: [place] heart Plan to address problem: On Ismo and Asa (7) CHF (congestive heart failure) Current Visit: Yes Status: Chronic Qualifiers: Heart failure chronicity: unspecified Plan to address problem: On Torsemide Echo ordered for EF and valve function (8) DVT prophylaxis Current Visit: No Status: Acute Plan to address problem: On Eliquis Subjective Date of service: 11/09/18 Principal diagnosis: Chest pain for 3 days Interval history: Patient is a 68-year-old female presenting with chief complaint of chest pain. The patient states the past 2-3 days she's had intermittent substernal chest pain associated with nausea/vomiting, shortness of breath and diaphoresis. The patient states this evening she slid off the bed and could not get up off the fl oor which prompted her to call EMS. She informed them of her chest pain she is transported to the ED for further evaluation.Chest pain is retrosternal and non radiating.no SOB or palpitations. The patient has a history of CHF and coronary artery disease reports having had 2 cardiac stents placed 2 years ago. Past Medical History Hypertension: Yes CVA: Yes (2017) Heart Attack/AMI: Yes (2008) Congestive Heart Failure: Yes COPD: Yes (3 L nasal cannula) Surgical History Past Surgical History?: Yes Hx Open Heart Surgery: Yes (CABG 3v) Hx Pacemaker: Yes (AICD) Additional Surgical History: Bypass in 2018 Family History Family history: no significant Social History Smoking Status: Current Every Day Smoker (1/3 pack per day) Substance Use Type: None Medications Home Medications: Home Medications Medication Instructions Recorded Confirmed Last Taken Type Aspirin [Adult Aspirin] 81 mg PO DAILY 02/24/18 09/20/18 05/09/18 History Spironolactone [Aldactone] 25 mg PO QDAY 02/24/18 09/20/18 05/09/18 History buPROPion SR [Wellbutrin SR] 150 mg PO BID 02/24/18 09/20/18 05/09/18 History Albuterol Sulfate [Ventolin HFA] 1 puff IH Q6H PRN 30 Days 03/03/18 09/20/18 05/09/18 Rx [email or web address] Cyclobenzaprine [Flexeril 10 MG 10 mg PO TID PRN 05/10/18 09/20/18 05/09/18 History TAB] Diphenhydramine HCl [Allergy 25 mg PO DAILY 05/10/18 09/20/18 05/09/18 History Relief] ISOSORBIDE MONOnitrate [Imdur ER] 60 mg PO QDAY 05/10/18 09/20/18 05/09/18 History Sertraline HCl [Zoloft] 50 mg PO DAILY 05/10/18 09/20/18 05/09/18 History hydrALAZINE [Apresoline TAB] 25 mg PO Q8HR 05/10/18 09/20/18 05/09/18 History Apixaban [Eliquis] 5 mg PO Q12HR #60 tablet 07/02/18 09/20/18 Unknown Rx Pantoprazole [Protonix TAB] 40 mg PO QDAY #30 tablet 07/02/18 09/20/18 Unknown Rx Polyethylene Glycol 3350 [Miralax 17 gm PO BID PRN #30 powd.pack 07/02/18 09/20/18 Unknown Rx 3350] Carvedilol [Coreg] 3.125 mg PO BID #60 tablet 09/10/18 09/20/18 Unknown Rx Magnesium Oxide [Mag-Ox] 400 mg PO QDAY #7 tablet 10/04/18 Unknown Rx Potassium Chloride [K-Dur] 20 meq PO QDAY #7 tablet 10/04/18 Unknown Rx Torsemide [Demadex] 40 mg PO BID #60 tablet 10/04/18 Unknown Rx metOLazone [Zaroxolyn] 5 mg PO QDAY #30 tablet 10/04/18 Unknown Rx Review of Systems ROS: Stated complaint: CHEST PAIN Other details as noted in HPI Constitutional: diaphoresis Eyes: denies: eye pain ENT: denies: throat pain Respiratory: shortness of breath Cardiovascular: chest pain Endocrine: no symptoms reported Gastrointestinal: nausea, vomiting Genitourinary: denies: dysuria Musculoskeletal: denies: back pain Neurological: denies: headache Objective - Constitutional Vitals: Vital Signs - 12hr 11/08/18 11/09/18 11/09/18 23:21 04:00 04:15 Temperature 97.9 F Pulse Rate 60 67 69 Pulse Rate [ Left Radial] Respiratory 20 Rate Blood Pressure 101/75 O2 Sat by Pulse 96 97 Oximetry 11/09/18 11/09/18 11/09/18 04:23 08:27 08:36 Temperature 98.2 F 98.1 F Pulse Rate 68 Pulse Rate [ Left Radial] Respiratory 19 18 Rate Blood Pressure 145/83 132/78 O2 Sat by Pulse 100 97 Oximetry 11/09/18 11/09/18 11/09/18 09:00 09:07 10:02 Temperature Pulse Rate 68 68 Pulse Rate [ 88 Left Radial] Respiratory 16 Rate Blood Pressure 132/78 132/78 O2 Sat by Pulse Oximetry 11/09/18 11/09/18 10:03 10:04 Temperature Pulse Rate 68 68 Pulse Rate [ Left Radial] Respiratory Rate Blood Pressure 132/78 132/78 O2 Sat by Pulse Oximetry General appearance: Present: no acute distress, well-nourished - EENT Eyes: PERRL, EOM intact ENT: hearing intact, clear oral mucosa Ears: bilateral: normal - Neck Neck: supple, normal ROM - Respiratory Respiratory effort: normal Respiratory: bilateral: CTA - Breasts Breasts: normal - Cardiovascular Heart rate: 78 Rhythm: regular Heart Sounds: Present: S1 & S2. Absent: gallop, rub Extremities: no ischemia, pulses intact, No edema, normal color, Full ROM - Gastrointestinal General gastrointestinal: Present: soft, non-tender, non-distended, normal bowel sounds Rectal Exam: deferred - Genitourinary Female genitourinary: normal - Integumentary Integumentary: clear, warm, dry - Musculoskeletal Musculoskeletal: 1, strength equal bilaterally - Neurologic Neurologic: moves all extremities - Psychiatric Psychiatric: memory intact, appropriate mood/affect, intact judgment & insight - Allied health notes Allied health notes reviewed: nursing, case management - Labs CBC & Chem 7: 11/08/18 03:09 11/08/18 03:09
--- NOTE | 2018-11-09 10:46 | Progress Note ---
Assessment and Plan - Patient Problems (1) Acute chest pain Current Visit: No Status: Acute Plan to address problem: Chest pain -r/o [place] protocol Serial Troponins Lexiscan on saturday (2) Hyperlipidemia Current Visit: No Status: Chronic Qualifiers: Hyperlipidemia type: mixed hyperlipidemia Qualified Code(s): E78.2 - Mixed hyperlipidemia Plan to address problem: Cont statins (3) Hypertension Current Visit: No Status: Chronic Qualifiers: Hypertension type: essential hypertension Qualified Code(s): I10 - Essential (primary) hypertension Plan to address problem: Cont antihypertensives (4) COPD (chronic obstructive pulmonary disease) Current Visit: Yes Status: Chronic Qualifiers: Emphysema type: unspecified Plan to address problem: On Bronchodilators (5) Depression Current Visit: Yes Status: Chronic Qualifiers: Depression Type: unspecified Qualified Code(s): F32.9 - Major depressive di sorder, single episode, unspecified Plan to address problem: On welbutrin (6) CAD (coronary artery disease) Current Visit: Yes Status: Chronic Qualifiers: Coronary Disease-Associated Artery/Lesion type: [place] artery [place] vs. transplanted heart: [place] heart Plan to address problem: On Ismo and Asa (7) CHF (congestive heart failure) Current Visit: Yes Status: Chronic Qualifiers: Heart failure chronicity: unspecified Plan to address problem: On Torsemide Echo ordered for EF and valve function (8) DVT prophylaxis Current Visit: No Status: Acute Plan to address problem: On Eliquis Subjective Date of service: 11/09/18 Principal diagnosis: Chest pain for 3 days Interval history: Patient is a 68-year-old female presenting with chief complaint of chest pain. The patient states the past 2-3 days she's had intermittent substernal chest pain associated with nausea/vomiting, shortness of breath and diaphoresis. The patient states this evening she slid off the bed and could not get up off the fl oor which prompted her to call EMS. She informed them of her chest pain she is transported to the ED for further evaluation.Chest pain is retrosternal and non radiating.no SOB or palpitations. The patient has a history of CHF and coronary artery disease reports having had 2 cardiac stents placed 2 years ago. Past Medical History Hypertension: Yes CVA: Yes (2017) Heart Attack/AMI: Yes (2008) Congestive Heart Failure: Yes COPD: Yes (3 L nasal cannula) Surgical History Past Surgical History?: Yes Hx Open Heart Surgery: Yes (CABG 3v) Hx Pacemaker: Yes (AICD) Additional Surgical History: Bypass in 2018 Family History Family history: no significant Social History Smoking Status: Current Every Day Smoker (1/3 pack per day) Substance Use Type: None Medications Home Medications: Home Medications Medication Instructions Recorded Confirmed Last Taken Type Aspirin [Adult Aspirin] 81 mg PO DAILY 02/24/18 09/20/18 05/09/18 History Spironolactone [Aldactone] 25 mg PO QDAY 02/24/18 09/20/18 05/09/18 History buPROPion SR [Wellbutrin SR] 150 mg PO BID 02/24/18 09/20/18 05/09/18 History Albuterol Sulfate [Ventolin HFA] 1 puff IH Q6H PRN 30 Days 03/03/18 09/20/18 05/09/18 Rx [email or web address] Cyclobenzaprine [Flexeril 10 MG 10 mg PO TID PRN 05/10/18 09/20/18 05/09/18 History TAB] Diphenhydramine HCl [Allergy 25 mg PO DAILY 05/10/18 09/20/18 05/09/18 History Relief] ISOSORBIDE MONOnitrate [Imdur ER] 60 mg PO QDAY 05/10/18 09/20/18 05/09/18 History Sertraline HCl [Zoloft] 50 mg PO DAILY 05/10/18 09/20/18 05/09/18 History hydrALAZINE [Apresoline TAB] 25 mg PO Q8HR 05/10/18 09/20/18 05/09/18 History Apixaban [Eliquis] 5 mg PO Q12HR #60 tablet 07/02/18 09/20/18 Unknown Rx Pantoprazole [Protonix TAB] 40 mg PO QDAY #30 tablet 07/02/18 09/20/18 Unknown Rx Polyethylene Glycol 3350 [Miralax 17 gm PO BID PRN #30 powd.pack 07/02/18 09/20/18 Unknown Rx 3350] Carvedilol [Coreg] 3.125 mg PO BID #60 tablet 09/10/18 09/20/18 Unknown Rx Magnesium Oxide [Mag-Ox] 400 mg PO QDAY #7 tablet 10/04/18 Unknown Rx Potassium Chloride [K-Dur] 20 meq PO QDAY #7 tablet 10/04/18 Unknown Rx Torsemide [Demadex] 40 mg PO BID #60 tablet 10/04/18 Unknown Rx metOLazone [Zaroxolyn] 5 mg PO QDAY #30 tablet 10/04/18 Unknown Rx Review of Systems ROS: Stated complaint: CHEST PAIN Other details as noted in HPI Constitutional: diaphoresis Eyes: denies: eye pain ENT: denies: throat pain Respiratory: shortness of breath Cardiovascular: chest pain Endocrine: no symptoms reported Gastrointestinal: nausea, vomiting Genitourinary: denies: dysuria Musculoskeletal: denies: back pain Neurological: denies: headache Objective - Constitutional Vitals: Vital Signs - 12hr 11/08/18 11/09/18 11/09/18 23:21 04:00 04:15 Temperature 97.9 F Pulse Rate 60 67 69 Pulse Rate [ Left Radial] Respiratory 20 Rate Blood Pressure 101/75 O2 Sat by Pulse 96 97 Oximetry 11/09/18 11/09/18 11/09/18 04:23 08:27 08:36 Temperature 98.2 F 98.1 F Pulse Rate 68 Pulse Rate [ Left Radial] Respiratory 19 18 Rate Blood Pressure 145/83 132/78 O2 Sat by Pulse 100 97 Oximetry 11/09/18 11/09/18 11/09/18 09:00 09:07 10:02 Temperature Pulse Rate 68 68 Pulse Rate [ 88 Left Radial] Respiratory 16 Rate Blood Pressure 132/78 132/78 O2 Sat by Pulse Oximetry 11/09/18 11/09/18 10:03 10:04 Temperature Pulse Rate 68 68 Pulse Rate [ Left Radial] Respiratory Rate Blood Pressure 132/78 132/78 O2 Sat by Pulse Oximetry General appearance: Present: no acute distress, well-nourished - EENT Eyes: PERRL, EOM intact ENT: hearing intact, clear oral mucosa Ears: bilateral: normal - Neck Neck: supple, normal ROM - Respiratory Respiratory effort: normal Respiratory: bilateral: CTA - Breasts Breasts: normal - Cardiovascular Heart rate: 78 Rhythm: regular Heart Sounds: Present: S1 & S2. Absent: gallop, rub Extremities: pulses intact, No edema, normal color, Full ROM - Gastrointestinal General gastrointestinal: Present: soft, non-tender, non-distended, normal bowel sounds Rectal Exam: deferred - Genitourinary Female genitourinary: normal - Integumentary Integumentary: clear, warm, dry - Musculoskeletal Musculoskeletal: 1, strength equal bilaterally - Neurologic Neurologic: moves all extremities - Psychiatric Psychiatric: memory intact, appropriate mood/affect, intact judgment & insight - Labs CBC & Chem 7: 11/08/18 03:09 11/08/18 03:09
--- NOTE | 2018-11-09 11:50 | Consultation ---
History of Present Illness Consult date: 11/09/18 Consult reason: congestive heart failure History of present illness: 68 year old female with multiple admissions for CHF presenting this time for the evaluation of chest pain, shortness of breath and s/p fall at home. Patient reports shortness of breath for the past 5 days. She is not sure whether or not she is taking all her meds as prescribed. ECG showing no interval changes and troponin is non-specifically elevated. Past History Past Medical History: atrial fib, CAD, COPD, heart failure Past Surgical History: PTCA Medications and Allergies Allergies Allergy/AdvReac Type Severity Reaction Status Date / Time lisinopril Allergy Anaphylaxis Verified 02/24/18 09:15 Penicillins Allergy Seizure Verified 02/24/18 09:15 Sulfa (Sulfonamide AdvReac Hives Verified 02/24/18 09:15 Antibiotics) Home Medications Medication Instructions Recorded Confirmed Last Taken Type Aspirin [Adult Aspirin] 81 mg PO DAILY 02/24/18 11/08/18 05/09/18 History Spironolactone [Aldactone] 25 mg PO QDAY 02/24/18 11/08/18 05/09/18 History buPROPion SR [Wellbutrin SR] 150 mg PO BID 02/24/18 11/08/18 05/09/18 History Albuterol Sulfate [Ventolin HFA] 1 puff IH Q6H PRN 30 Days 03/03/18 11/08/18 05/09/18 Rx [email or web address] Cyclobenzaprine [Flexeril 10 MG 10 mg PO TID PRN 05/10/18 11/08/18 05/09/18 History TAB] Diphenhydramine HCl [Allergy 25 mg PO DAILY 05/10/18 11/08/18 05/09/18 History Relief] ISOSORBIDE MONOnitrate [Imdur ER] 60 mg PO QDAY 05/10/18 11/08/18 05/09/18 H istory Sertraline HCl [Zoloft] 50 mg PO DAILY 05/10/18 11/08/18 05/09/18 History hydrALAZINE [Apresoline TAB] 25 mg PO Q8HR 05/10/18 11/08/18 05/09/18 History Apixaban [Eliquis] 5 mg PO Q12HR #60 tablet 07/02/18 11/08/18 Unknown Rx Pantoprazole [Protonix TAB] 40 mg PO QDAY #30 tablet 07/02/18 11/08/18 Unknown Rx Polyethylene Glycol 3350 [Miralax 17 gm PO BID PRN #30 powd.pack 07/02/18 Unknown Rx 3350] Carvedilol [Coreg] 3.125 mg PO BID #60 tablet 09/10/18 11/08/18 Unknown Rx Magnesium Oxide [Mag-Ox] 400 mg PO QDAY #7 tablet 10/04/18 11/08/18 Unknown Rx Potassium Chloride [K-Dur] 20 meq PO QDAY #7 tablet 10/04/18 11/08/18 Unknown Rx Torsemide [Demadex] 40 mg PO BID #60 tablet 10/04/18 11/08/18 Unknown Rx metOLazone [Zaroxolyn] 5 mg PO QDAY #30 tablet 10/04/18 11/08/18 Unknown Rx Active Meds: Active Medications Albuterol (Proventil) 2.5 mg IH Q4HRT PRN PRN Reason: Shortness Of Breath Apixaban (Eliquis) 5 mg PO Q12HR [facility]; Protocol Last Admin: 11/09/18 10:02 Dose: 5 mg Documented by: Aspirin (Halfprin Ec) 81 mg PO DAILY [facility] Last Admin: 11/09/18 10:01 Dose: 81 mg Documented by: Bupropion HCl (Wellbutrin Sr) 150 mg PO BID [facility] Last Admin: 11/09/18 10:02 Dose: 150 mg Documented by: Carvedilol (Coreg) 3.125 mg PO BID [facility] Last Admin: 11/09/18 10:04 Dose: 3.125 mg Documented by: Cyclobenzaprine HCl (Flexeril) 10 mg PO TID PRN PRN Reason: Muscle Spasm Diphenhydramine HCl (Benadryl) 25 mg PO DAILY [facility] Last Admin: 11/09/18 10:03 Dose: 25 mg Documented by: Hydralazine HCl (Apresoline) 25 mg PO Q8HR [facility] Last Admin: 11/09/18 09:00 Dose: 25 mg Documented by: Hydromorphone HCl (Dilaudid) 0.5 mg IV Q3H PRN PRN Reason: Pain , Severe (7-10) Last Admin: 11/09/18 00:12 Dose: 0.5 mg Documented by: Isosorbide Mononitrate (Imdur) 60 mg PO QDAY [facility] Last Admin: 11/09/18 10:03 Dose: 60 mg Documented by: Magnesium Oxide (Mag-Ox) 400 mg PO QDAY [facility] Last Admin: 11/09/18 10:03 Dose: 400 mg Documented by: Metolazone (Zaroxolyn) 5 mg PO QDAY [facility] Last Admin: 11/09/18 10:03 Dose: 5 mg Documented by: Pantoprazole Sodium (Protonix) 40 mg PO QDAY [facility] Last Admin: 11/09/18 10:03 Dose: 40 mg Documented by: Polyethylene Glycol (Miralax 3350) 17 gm PO BID PRN PRN Reason: Constipation Potassium Chloride (K-Dur) 20 meq PO QDAY [facility] Last Admin: 11/09/18 10:03 Dose: 20 meq Documented by: Sertraline HCl (Zoloft) 50 mg PO DAILY [facility] Last Admin: 11/09/18 10:03 Dose: 50 mg Documented by: Spironolactone (Aldactone) 25 mg PO QDAY [facility] Last Admin: 11/09/18 10:02 Dose: 25 mg Documented by: Torsemide (Demadex) 40 mg PO BID@0600,1800 [facility] Review of Systems All systems: negative Physical Examination Vital Signs Pulse Resp Pulse Ox 59 L 13 100 11/08/18 05:30 11/08/18 05:30 11/08/18 05:30 General appearance: no acute distress Neck: Positive: JVD/HJR Cardiac: Positive: irregularly irregular Lungs: Positive: Decreased Breath Sounds Abdomen: Positive: Ascites Extremities: Present: edema Results 11/08/18 03:09 11/08/18 03:09 - EKG Interpretation EKG shows: atrial fibrillation EKG interpretations - Telemetry EKG Rhythm: Atrial Fibrillation Assessment and Plan Acute on Chronic systolic heart failure Suspect non-compliance Multiple HF admission Ascites Patient had paracentesis in previous admissions Hx of LUE DVT Hx of coronary artery disease cardiac cath 03/2018 revealed patent SVG to LAD, patent SVG to OM, patent SVG to PDA and patent diagonal stent, LVEF 10-15%. Non-specific troponin not consistent with ACS Hx of Ischemic cardiomyopathy ejection fraction 10-15% by echo 08/2018 Presence of single chamber cardiac defibrillator underlying paroxysmal atrial fibrillation previously treated with eliquis for oral anticoagulation therapy. Tobacco abuse Recommend: Fluid/sodium restriction. Daily weight. Start IV milrinone and IV Bumex Resume eliquis therapy Consider hospice discussion with patient
[2018-11-09] MEDS: PROVENTIL IH PRN (12:36)
[2018-11-09] MEDS: BUMEX IV SCH ×2 (13:20→18:01)
[2018-11-09] MEDS: MILRINONE-D5W 20 MG/100 ML 20 MG/100 ML BAG IV SCH ×2 (15:24→22:24)
[2018-11-09] MEDS: FLEXERIL PO PRN (17:53)
[2018-11-09] MEDS ORDERED: DEMADEX PO SCH (18:00)
[2018-11-10] MEDS: MILRINONE-D5W 20 MG/100 ML 20 MG/100 ML BAG IV SCH ×2 (05:24→13:57)
[2018-11-10] MEDS: APRESOLINE PO SCH ×3 (05:25→21:31)
[2018-11-10] MEDS: BUMEX IV SCH ×2 (05:26→17:52)
[2018-11-10 06:24] LABS: Calcium 7.9 mg/dL (8.4-10.2)
--- NOTE | 2018-11-10 10:24 | Progress Note ---
Assessment and Plan Acute on Chronic systolic heart failure Suspect non-compliance Multiple HF admission Ascites Patient had paracentesis in previous admissions Hx of LUE DVT Hx of coronary artery disease cardiac cath 03/2018 revealed patent SVG to LAD, patent SVG to OM, patent SVG to PDA and patent diagonal stent, LVEF 10-15%. Non-specific troponin not consistent with ACS Hx of Ischemic cardiomyopathy ejection fraction 10-15% by echo 08/2018 Presence of single chamber cardiac defibrillator underlying paroxysmal atrial fibrillation previously treated with eliquis for oral anticoagulation therapy. Tobacco abuse Recommendations: Fluid/sodium restriction. Daily weight. We will initiate amiodarone for suppression of SVT. Continue medical therapy for ischemic cardiomyopathy and chronic systolic heart failure. Subjective Date of service: 11/10/18 Principal diagnosis: Chest pain for 3 days Interval history: IV milrinone continues. SVT seen on telemetry at 709am. Cardiology was not notified. Patient denies AICD discharge. Objective Vital Signs Temp Pulse Pulse Resp Resp BP Pulse Ox 11/10/18 07:28 98.1 F 64 20 97/63 92 11/10/18 05:25 95 H 110/46 11/10/18 04:15 94 H 20 110/46 94 11/10/18 02:55 94 H 11/09/18 23:57 98.3 F 91 H 20 104/54 96 11/09/18 22:23 69 116/54 11/09/18 22:21 69 116/54 11/09/18 22:15 100 11/09/18 19:50 94 H 11/09/18 19:02 97.5 F L 87 20 116/54 90 11/09/18 17:38 139/74 11/09/18 17:00 75 11/09/18 16:44 98.4 F 67 20 126/55 93 11/09/18 14:44 61 132/70 11/09/18 14:42 65 98 11/09/18 14:41 61 132/70 99 11/09/18 14:35 53 L 127/66 97 11/09/18 14:17 64 11/09/18 12:36 62 16 11/09/18 12:00 69 11/09/18 11:13 98.2 F 64 18 135/64 97 - Physical Examination General: No Apparent Distress HEENT: Positive: PERRL Neck: Positive: JVD/HJR Cardiac: Positive: Irregularly Regular Lungs: Positive: Decreased Breath Sounds Abdomen: Positive: Ascites Extremities: Present: edema - Labs and Meds Comprehensive Metabolic Panel 11/10/18 Range/Units 05:47 Sodium 138 (137-145) mmol/L Potassium 4.3 (3.6-5.0) mmol/L Chloride 100.2 (98-107) mmol/L Carbon Dioxide 32 H (22-30) mmol/L BUN 25 H (7-17) mg/dL Creatinine 1.2 (0.7-1.2) mg/dL Glucose 104 H (65-100) mg/dL Calcium 7.9 L (8.4-10.2) mg/dL
[2018-11-10] MEDS: ALDACTONE PO SCH (10:35)
[2018-11-10] MEDS: ELIQUIS PO SCH ×2 (10:37→21:33)
[2018-11-10] MEDS: PROTONIX PO SCH (10:38)
[2018-11-10] MEDS: MAG-OX PO SCH (10:38)
[2018-11-10] MEDS: BENADRYL PO SCH (10:38)
[2018-11-10] MEDS: HALFPRIN EC PO SCH (10:39)
[2018-11-10] MEDS: COREG PO SCH ×2 (10:39→21:33)
[2018-11-10] MEDS: ZAROXOLYN PO SCH (10:57)
[2018-11-10] MEDS: WELLBUTRIN SR PO SCH ×2 (11:04→21:33)
[2018-11-10] MEDS: ZOLOFT PO SCH (11:04)
[2018-11-10] MEDS ORDERED: D5W IV ONE (14:24)
[2018-11-10] MEDS ORDERED: CORDARONE IV ONE (14:24)
--- NOTE | 2018-11-10 16:34 | Progress Note ---
Assessment and Plan - Patient Problems (1) CHF (congestive heart failure) Current Visit: Yes Status: Chronic Qualifiers: Heart failure chronicity: unspecified Plan to address problem: On Torsemide EF and valve function--1ef 10 TO 15 PERCENT Acute on Chronic systolic heart failure Suspect non-compliance Multiple HF admission Ascites Patient had paracentesis in previous admissions Hx of LUE DVT Hx of coronary artery disease cardiac cath 03/2018 revealed patent SVG to LAD, patent SVG to OM, patent SVG to PDA and patent diagonal stent, LVEF 10-15%. Non-specific troponin not consistent with ACS Hx of Ischemic cardiomyopathy ejection fraction 10-15% by echo 08/2018 Presence of single chamber cardiac defibrillator underlying paroxysmal atrial fibrillation previously treated with eliquis for oral anticoagulation therapy. Tobacco abuse Recommend: Fluid/sodium restriction. Daily weight. Start IV milrinone and IV Bumex Resume eliquis therapy Consider hospice discussion with patient (2) Acute chest pain Current Visit: No Status: Acute Plan to address problem: Chest pain -r/o MT protocol Serial Troponins WILL DEFER TO CARDIOLOGY (3) Hyperlipidemia Current Visit: No Status: Chronic Qualifiers: Hyperlipidemia type: mixed hyperlipidemia Qualified Code(s): E78.2 - Mixed hyperlipidemia Plan to address problem: Cont statins (4) Hypertension Current Visit: No Status: Chronic Qualifiers: Hypertension type: essential hypertension Qualified Code(s): I10 - Essential (primary) hypertension Plan to address problem: Cont antihypertensives (5) COPD (chronic obstructive pulmonary disease) Current Visit: Yes Status: Chronic Qualifiers: Emphysema type: unspecified Plan to address problem: On Bronchodilators (6) Depression Current Visit: Yes Status: Chronic Qualifiers: Depression Type: unspecified Qualified Code(s): F32.9 - Major depressive disorder, single episode, unspecified Plan to address problem: On welbutrin (7) CAD (coronary artery disease) Current Visit: Yes Status: Chronic Qualifiers: Coronary Disease-Associated Artery/Lesion type: [place] artery [place] vs. transplanted heart: [place] heart Plan to address problem: On Ismo and Asa (8) DVT prophylaxis Current Visit: No Status: Acute Plan to address problem: On Eliquis Subjective Date of service: 11/10/18 Principal diagnosis: Chest pain for 3 days Interval history: Patient is a 68-year-old female presenting with chief complaint of chest pain. The patient states the past 2-3 days she's had intermittent substernal chest pain associated with nausea/vomiting, shortness of breath and diaphoresis. The patient states this evening she slid off the bed and could not get up off the floor which prompted her to call EMS. She informed them of her chest pain she is transported to the ED for further evaluation.Chest pain is retrosternal and non radiating.no SOB or palpitations. The patient has a history of CHF and coronary artery disease reports having had 2 cardiac stents placed 2 years ago. Objective - Constitutional Vitals: Vital Signs - 12hr 11/10/18 11/10/18 11/10/18 05:25 07:28 08:00 Temperature 98.1 F Pulse Rate 95 H 64 Respiratory 20 20 Rate Blood Pressure 110/46 97/63 O2 Sat by Pulse 92 92 Oximetry 11/10/18 11/10/18 11/10/18 10:00 10:35 10:39 Temperature Pulse Rate 64 64 Respiratory Rate Blood Pressure 97/63 97/63 O2 Sat by Pulse 98 Oximetry 11/10/18 13:01 Temperature 98.1 F Pulse Rate 98 H Respiratory 20 Rate Blood Pressure 114/69 O2 Sat by Pulse 99 Oximetry General appearance: Present: no acute distress, well-nourished - EENT Eyes: PERRL, EOM intact ENT: hearing intact, clear oral mucosa Ears: bilateral: normal - Neck Neck: supple, normal ROM - Respiratory Respiratory effort: normal Respiratory: bilateral: CTA - Breasts Breasts: normal - Cardiovascular Rhythm: regular Heart Sounds: Present: S1 & S2. Absent: gallop, rub Extremities: pulses intact, No edema, normal color, Full ROM - Gastrointestinal General gastrointestinal: Present: soft, non-tender, non-distended, normal bowel sounds - Genitourinary Female genitourinary: normal - Integumentary Integumentary: clear, warm, dry - Musculoskeletal Musculoskeletal: 1, strength equal bilaterally - Neurologic Neurologic: moves all extremities - Psychiatric Psychiatric: memory intact, appropriate mood/affect, intact judgment & insight - Labs CBC & Chem 7: 11/08/18 03:09 11/10/18 05:47 Labs: Abnormal lab results 11/10/18 11/10/18 11/10/18 Range/Units 05:47 07:32 13:08 Carbon Dioxide 32 H (22-30) mmol/L BUN 25 H (7-17) mg/dL Glucose 104 H (65-100) mg/dL POC Glucose 115 H 142 H (70-105) Calcium 7.9 L (8.4-10.2) mg/dL
[2018-11-10] MEDS: CORDARONE PO SCH (21:31)
[2018-11-10] MEDS: PROVENTIL IH PRN (22:48)
[2018-11-11] MEDS: MILRINONE-D5W 20 MG/100 ML 20 MG/100 ML BAG IV SCH ×2 (00:21→12:11)
[2018-11-11] MEDS: BUMEX IV SCH ×2 (05:58→18:00)
[2018-11-11] MEDS: APRESOLINE PO SCH (05:59)
[2018-11-11] MEDS: PROTONIX PO SCH (10:35)
[2018-11-11] MEDS: ELIQUIS PO SCH ×2 (10:35→21:47)
[2018-11-11] MEDS: COREG PO SCH ×2 (10:36→21:47)
[2018-11-11] MEDS: CORDARONE PO SCH ×2 (10:36→21:48)
[2018-11-11] MEDS: HALFPRIN EC PO SCH (10:36)
[2018-11-11] MEDS: FLEXERIL PO PRN (10:42)
[2018-11-11] MEDS: ALDACTONE PO SCH ×2 (10:43→12:09)
[2018-11-11] MEDS: ZOLOFT PO SCH (10:44)
[2018-11-11] MEDS: ZAROXOLYN PO SCH (10:44)
[2018-11-11] MEDS: WELLBUTRIN SR PO SCH ×2 (10:44→21:47)
[2018-11-11] MEDS: BENADRYL PO SCH (12:10)
[2018-11-11] MEDS: MAG-OX PO SCH (12:10)
--- NOTE | 2018-11-11 13:48 | Progress Note ---
Assessment and Plan Acute on Chronic systolic heart failure Suspect non-compliance Multiple HF admission Ascites Patient had paracentesis in previous admissions Hx of LUE DVT Hx of coronary artery disease cardiac cath 03/2018 revealed patent SVG to LAD, patent SVG to OM, patent SVG to PDA and patent diagonal stent, LVEF 10-15%. Non-specific troponin not consistent with ACS Hx of Ischemic cardiomyopathy ejection fraction 10-15% by echo 08/2018 Presence of single chamber cardiac defibrillator underlying paroxysmal atrial fibrillation previously treated with eliquis for oral anticoagulation therapy. on amiodarone and coreg Tobacco abuse Recommendations: Fluid/sodium restriction. Daily weight. Continue aggressive medical therapy for paroxysmal atrial fibrillation, ischemic cardiomyopathy and chronic systolic heart failure. Subjective Date of service: 11/11/18 Principal diagnosis: Chest pain for 3 days Interval history: Patient with nausea and vomiting this morning. IV milrinone continues. Objective Vital Signs Temp Pulse Pulse Resp Resp BP BP 11/11/18 12:18 98.1 F 95 H 18 97/62 11/11/18 12:09 75 95/59 11/11/18 10:36 75 95/59 11/11/18 08:50 11/11/18 07:44 98.2 F 75 20 95/59 11/11/18 05:59 95 H 110/64 11/11/18 04:49 98.6 F 78 20 110/64 11/11/18 03:00 95 H 11/10/18 23:19 98.0 F 90 18 100/53 11/10/18 22:48 94 H 17 11/10/18 21:33 72 112/70 11/10/18 21:31 72 112/70 11/10/18 21:06 11/10/18 19:39 98.0 F 94 H 18 112/70 11/10/18 16:50 98.1 F 91 H 20 104/70 11/10/18 16:15 92 H 97/63 Pulse Ox 11/11/18 12:18 98 11/11/18 12:09 11/11/18 10:36 11/11/18 08:50 96 11/11/18 07:44 94 11/11/18 05:59 11/11/18 04:49 94 11/11/18 03:00 11/10/18 23:19 93 11/10/18 22:48 11/10/18 21:33 11/10/18 21:31 11/10/18 21:06 99 11/10/18 19:39 96 11/10/18 16:50 99 11/10/18 16:15 - Physical Examination General: No Apparent Distress HEENT: Positive: PERRL Neck: Positive: trachea midline Cardiac: Positive: irregularly irregular Lungs: Positive: Decreased Breath Sounds Neuro: Positive: Grossly Intact Extremities: Present: edema
--- NOTE | 2018-11-11 14:04 | Progress Note ---
Assessment and Plan Assessment and plan: Acute on Chronic systolic heart failure with EF of 10-15 % -Suspect to be due to non-compliance bs of multiple HF admission -Status post single chamber cardiac defibrillator placement. -Continue IV Bumex, Milrinone drip and BBB. Not on ACEI due to allergy -Last echo was in 08/2018 -Cardiology following Paroxysmal atrial fibrillation -Continue oral amiodarone and Coreg -Rate currently controlled -cont oral anticoagulation with eliquis Hx of LUE DVT -cont oral anticoagulation with eliquis Hx of coronary artery disease -cardiac cath 03/2018 revealed patent SVG to LAD, patent SVG to OM, patent SVG to PDA and patent diagonal stent, LVEF 10-15%. 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 She complained of nausea with vomiting 1 episode. She denied chest pain or shortness of breath. Hospitalist Physical - Constitutional Vitals: Temp Pulse Resp BP Pulse Ox 98.1 F 95 H 18 97/62 98 11/11/18 12:18 11/11/18 12:18 11/11/18 12:18 11/11/18 12:18 11/11/18 12:18 General appearance: Present: no acute distress, obese - EENT Eyes: Present: PERRL, EOM intact ENT: hearing intact, clear oral mucosa - Neck Neck: Present: supple - Respiratory Respiratory effort: normal Respiratory: bilateral: diminished - Cardiovascular Rhythm: regular Heart Sounds: Present: S1 & S2 - Extremities Extremity abnormal: edema (in BLE) - Abdominal General gastrointestinal: soft, non-tender, tender (mild generalized), normal bowel sounds - Integumentary Integumentary: Present: clear, warm, dry - Neurologic Neurologic: CNII-XII intact Results - Labs CBC & Chem 7: 11/08/18 03:09 11/10/18 05:47 Labs: Laboratory Last Values WBC 4.6 K/mm3 (4.5-11.0) 11/08/18 03:09 RBC 3.37 M/mm3 (3.65-5.03) L 11/08/18 03:09 Hgb 11.6 gm/dl (10.1-14.3) 11/08/18 03:09 Hct 35.8 % (30.3-42.9) 11/08/18 03:09 MCV 106 fl (79-97) H 11/08/18 03:09 MCH 34 pg (28-32) H 11/08/18 03:09 MCHC 32 % (30-34) 11/08/18 03:09 RDW 17.1 % (13.2-15.2) H 11/08/18 03:09 Plt Count 178 K/mm3 (140-440) 11/08/18 03:09 Lymph % (Auto) 4.6 % (13.4-35.0) L 11/08/18 03:09 [place] % (Auto) 11.5 % (0.0-7.3) H 11/08/18 03:09 Eos % (Auto) 0.6 % (0.0-4.3) 11/08/18 03:09 Baso % (Auto) 0.3 % (0.0-1.8) 11/08/18 03:09 Lymph # 0.2 K/mm3 (1.2-5.4) L 11/08/18 03:09 [place] # 0.5 K/mm3 (0.0-0.8) 11/08/18 03:09 Eos # 0.0 K/mm3 (0.0-0.4) 11/08/18 03:09 Baso # 0.0 K/mm3 (0.0-0.1) 11/08/18 03:09 Seg Neutrophils % 83.0 % (40.0-70.0) H 11/08/18 03:09 Seg Neutrophils # 3.8 K/mm3 (1.8-7.7) 11/08/18 03:09 Sodium 138 mmol/L (137-145) 11/10/18 05:47 Potassium 4.3 mmol/L (3.6-5.0) 11/10/18 05:47 Chloride 100.2 mmol/L (98-107) 11/10/18 05:47 Carbon Dioxide 32 mmol/L (22-30) H 11/10/18 05:47 10 mmol/L 11/10/18 05:47 BUN 25 mg/dL (7-17) H 11/10/18 05:47 1.2 mg/dL (0.7-1.2) 11/10/18 05:47 Estimated GFR 54 ml/min 11/10/18 05:47 21 % 11/10/18 05:47 Glucose 104 mg/dL (65-100) H 11/10/18 05:47 POC Glucose 125 (70-105) H 11/11/18 12:25 Calcium 7.9 mg/dL (8.4-10.2) L 11/10/18 05:47 Magnesium 1.70 mg/dL (1.7-2.3) 11/10/18 05:47 0.023 ng/mL (0.00-0.029) 11/08/18 08:54 Triglycerides 107 mg/dL (2-149) 11/08/18 03:09 Cholesterol 176 mg/dL (50-199) 11/08/18 03:09 137 mg/dL (50-130) H 11/08/18 03:09 33 mg/dL (40-59) L 11/08/18 03:09 5.33 % 11/08/18 03:09 Active Medications - Current Medications Current Medications: Generic Name Dose Route Start Last Admin Trade Name Freq PRN Reason Stop Dose Admin Albuterol 2.5 mg 11/09/18 08:00 11/10/18 22:48 Proventil IH 2.5 mg Q4HRT PRN Administration Shortness Of Breath Amiodarone HCl 200 mg 11/10/18 22:00 11/11/18 10:36 Cordarone PO 200 mg BID RADHA Administration Apixaban 5 mg 11/09/18 10:00 11/11/18 10:35 Eliquis PO 5 mg Q12HR RADHA Administration Protocol Aspirin 81 mg 11/09/18 10:00 11/11/18 10:36 Halfprin Ec PO 81 mg DAILY RADHA Administration Bumetanide 1 mg 11/09/18 13:00 11/11/18 05:58 Bumex IV 1 mg BID@0600,1800 RADHA Administration Bupropion HCl 150 mg 11/09/18 10:00 11/11/18 10:44 Wellbutrin Sr PO Not Given BID RADHA Carvedilol 3.125 mg 11/09/18 10:00 11/11/18 10:36 Coreg PO 3.125 mg BID RADHA Administration Cyclobenzaprine HCl 10 mg 11/09/18 08:00 11/11/18 10:42 Flexeril PO 10 mg TID PRN Administration Muscle Spasm Diphenhydramine HCl 25 mg 11/09/18 10:00 11/11/18 12:10 Benadryl PO 25 mg DAILY RADHA Administration Hydralazine HCl 25 mg 11/09/18 08:00 11/11/18 05:59 Apresoline PO 25 mg Q8HR RADHA Administration Hydromorphone HCl 0.5 mg 11/08/18 17:04 11/09/18 12:05 Dilaudid IV 0.5 mg Q3H PRN Administration Pain , Severe (7-10) Milrinone Lactate/Dextrose 20 mg in 100 mls @ 9.255 mls/hr 11/09/18 12:00 11/11/18 12:11 Milrinone-D5w 20 Mg/100 Ml IV 0.375 mcg/kg/min TITR RADHA 13.883 mls/hr Administration 0.25 MCG/KG/MIN Magnesium Oxide 400 mg 11/09/18 10:00 11/11/18 12:10 Mag-Ox PO 400 mg QDAY RADHA Administration Metolazone 5 mg 11/09/18 10:00 11/11/18 10:44 Zaroxolyn PO Not Given QDAY RADHA Ondansetron HCl 4 mg 11/11/18 13:44 Zofran IV Q8H PRN Nausea And Vomiting Pantoprazole Sodium 40 mg 11/09/18 10:00 11/11/18 10:35 Protonix PO 40 mg QDAY [facility] Administration Polyethylene Glycol 17 gm 11/09/18 10:00 Miralax 3350 PO BID PRN Constipation Sertraline HCl 50 mg 11/09/18 10:00 11/11/18 10:44 Zoloft PO Not Given DAILY [facility] Spironolactone 25 mg 11/09/18 10:00 11/11/18 12:09 Aldactone PO 25 mg QDAY RADHA Administration
[2018-11-11] MEDS: DILAUDID IV PRN (15:22)
--- NOTE | 2018-11-11 16:22 | Vascular Lab Report ---
LEFT UPPER EXTREMITY VENOUS DOPPLER ULTRASOUND HISTORY: Left upper extremity pain and swelling COMPARISON: None. TECHNIQUE: Grayscale, color and spectral Doppler imaging of the venous system of the left upper extre mity was performed. FINDINGS: Internal Jugular Vein: Normal grayscale appearance and flow. Subclavian Vein: Normal grayscale appearance and flow. Axillary Vein: Normal venous flow, compressibility and augmentation. Brachial vein: Normal venous flow, compressibility and augmentation. Basilic vein: Normal venous flow, compressibility and augmentation. Cephalic vein: Normal venous flow, compressibility and augmentation. Additional Findings: None. IMPRESSION: 1. No sonographic evidence of deep venous thrombosis in the left upper extremity. Signer Name: Armando Orantes Jr, MD Signed: 11/11/2018 4:17 PM Workstation Name: [id number]
[2018-11-11] MEDS: PROVENTIL IH PRN (20:57)
[2018-11-11] MEDS: ZOFRAN IV PRN (21:53)
[2018-11-12] MEDS: BUMEX IV SCH ×2 (05:56→18:42)
[2018-11-12] MEDS: BENADRYL PO SCH (10:00)
[2018-11-12] MEDS ORDERED: K-DUR PO NR (10:12)
--- NOTE | 2018-11-12 11:16 | Progress Note ---
<SAURAV PITT - Last Filed: 11/12/18 11:15> Assessment and Plan Acute on Chronic systolic heart failure Suspect non-compliance Multiple HF admission Ascites Patient had paracentesis in previous admissions Hx of LUE DVT Hx of coronary artery disease cardiac cath 03/2018 revealed patent SVG to LAD, patent SVG to OM, patent SVG to PDA and patent diagonal stent, LVEF 10-15%. Non-specific troponin not consistent with ACS Hx of Ischemic cardiomyopathy ejection fraction 10-15% by echo 08/2018 Presence of single chamber cardiac defibrillator underlying paroxysmal atrial fibrillation previously treated with eliquis for oral anticoagulation therapy. on amiodarone and coreg Tobacco abuse Recommendations: Fluid/sodium restriction. Daily weight. Continue aggressive medical therapy for paroxysmal atrial fibrillation, ischemic cardiomyopathy and chronic systolic heart failure. Subjective Date of service: 11/12/18 Principal diagnosis: Chest pain for 3 days Interval history: Patient is resting in bed comfortably. Complains of headaches. IV milrinone continues. Objective Vital Signs Temp Pulse Pulse Resp Resp BP Pulse Ox 11/12/18 08:50 98.9 F 59 L 18 131/78 92 11/12/18 05:15 97.7 F 11/12/18 05:14 94 H 20 131/72 95 11/11/18 23:47 97.5 F L 11/11/18 23:46 95 H 20 110/59 92 11/11/18 21:25 94 H 20 119/67 91 11/11/18 21:22 97.5 F L 11/11/18 20:57 97 H 18 11/11/18 20:53 96 11/11/18 20:25 95 H 11/11/18 17:32 97.5 F L 93 H 18 103/66 97 11/11/18 12:18 98.1 F 95 H 18 97/62 98 11/11/18 12:09 75 95/59 - Physical Examination General: No Apparent Distress HEENT: Positive: PERRL Neck: Positive: trachea midline Cardiac: Positive: irregularly irregular Lungs: Positive: Decreased Breath Sounds Neuro: Positive: Grossly Intact Extremities: Present: edema - Labs and Meds Comprehensive Metabolic Panel 11/12/18 Range/Units 07:46 Sodium 137 (137-145) mmol/L Potassium 3.6 (3.6-5.0) mmol/L Chloride 97.7 L (98-107) mmol/L Carbon Dioxide 30 (22-30) mmol/L BUN 28 H (7-17) mg/dL Creatinine 1.2 (0.7-1.2) mg/dL Glucose 100 (65-100) mg/dL Calcium 8.0 L (8.4-10.2) mg/dL <MAURI ARTEAGA - Last Filed: 11/12/18 11:57> Assessment and Plan As seen and evaluated the patient agrees with this plan. At this time recommend continue maximal medical therapy for treatment of atrial fibrillation, ischemic cardiomyopathy, chronic systolic heart failure. Objective Vital Signs Temp Pulse Pulse Resp Resp BP Pulse Ox 11/12/18 11:28 98.0 F 95 H 18 111/76 97 11/12/18 08:50 98.9 F 59 L 18 131/78 92 11/12/18 05:15 97.7 F 11/12/18 05:14 94 H 20 131/72 95 11/11/18 23:47 97.5 F L 11/11/18 23:46 95 H 20 110/59 92 11/11/18 21:25 94 H 20 119/67 91 11/11/18 21:22 97.5 F L 11/11/18 20:57 97 H 18 11/11/18 20:53 96 11/11/18 20:25 95 H 11/11/18 17:32 97.5 F L 93 H 18 103/66 97 11/11/18 12:18 98.1 F 95 H 18 97/62 98 11/11/18 12:09 75 95/59 - Labs and Meds Comprehensive Metabolic Panel 11/12/18 Range/Units 07:46 Sodium 137 (137-145) mmol/L Potassium 3.6 (3.6-5.0) mmol/L Chloride 97.7 L (98-107) mmol/L Carbon Dioxide 30 (22-30) mmol/L BUN 28 H (7-17) mg/dL Creatinine 1.2 (0.7-1.2) mg/dL Glucose 100 (65-100) mg/dL Calcium 8.0 L (8.4-10.2) mg/dL
[2018-11-12] MEDS: CORDARONE PO SCH ×2 (11:39→22:05)
[2018-11-12] MEDS: PROTONIX PO SCH (11:40)
[2018-11-12] MEDS: ZAROXOLYN PO SCH (14:32)
[2018-11-12] MEDS: ELIQUIS PO SCH ×2 (14:32→22:05)
[2018-11-12] MEDS: ALDACTONE PO SCH (14:32)
[2018-11-12] MEDS: COREG PO SCH ×2 (14:33→22:05)
[2018-11-12] MEDS: DILAUDID IV PRN (14:35)
[2018-11-12] MEDS: MILRINONE-D5W 20 MG/100 ML 20 MG/100 ML BAG IV SCH ×2 (14:36→23:21)
--- NOTE | 2018-11-12 14:41 | XRay Report ---
Abdomen 1 view History: abdominal pain with vomiting Comparison: None Findings: The bowel gas pattern is unremarkable. No radiopaque calculi are noted. No free air is se en. Degenerative change in the lumbar spine and hips. Impression: No acute abnormality seen. Signer Name: Kalpesh Reilly MD Signed: 11/12/2018 2:37 PM Workstation Name: [id number]
[2018-11-12] MEDS: PROVENTIL IH PRN (14:45)
--- NOTE | 2018-11-12 16:02 | Progress Note ---
Assessment and Plan Assessment and plan: Acute on Chronic systolic heart failure with EF of 10-15 % -Suspect to be due to non-compliance bs of multiple HF admission -Status post single chamber cardiac defibrillator placement. -Continue IV Bumex, Milrinone drip and BBB. Not on ACEI due to allergy -Last echo was in 08/2018 -Cardiology following Paroxysmal atrial fibrillation -Continue oral amiodarone and Coreg -Rate currently controlled -cont oral anticoagulation with eliquis Hx of LUE DVT -cont oral anticoagulation with eliquis Hx of coronary artery disease -cardiac cath 03/2018 revealed patent SVG to LAD, patent SVG to OM, patent SVG to PDA and patent diagonal stent, LVEF 10-15%. 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 She denies chest pain or shortness of breath. Hospitalist Physical - Constitutional Vitals: Temp Pulse Resp BP Pulse Ox 98.0 F 90 18 111/76 95 11/12/18 11:28 11/12/18 14:45 11/12/18 14:45 11/12/18 11:28 11/12/18 14:45 General appearance: Present: no acute distress, obese - EENT Eyes: Present: PERRL, EOM intact ENT: hearing intact, clear oral mucosa - Neck Neck: Present: supple - Respiratory Respiratory effort: normal Respiratory: bilateral: diminished - Cardiovascular Rhythm: regular Heart Sounds: Present: S1 & S2 - Extremities Extremity abnormal: edema (in BLE) - Abdominal General gastrointestinal: soft, tender (mild generalized), normal bowel sounds - Integumentary Integumentary: Present: clear, warm, dry - Psychiatric Psychiatric: appropriate mood/affect - Neurologic Neurologic: CNII-XII intact Results - Labs CBC & Chem 7: 11/08/18 03:09 11/12/18 07:46 Labs: Laboratory Last Values WBC 4.6 K/mm3 (4.5-11.0) 11/08/18 03:09 RBC 3.37 M/mm3 (3.65-5.03) L 11/08/18 03:09 Hgb 11.6 gm/dl (10.1-14.3) 11/08/18 03:09 Hct 35.8 % (30.3-42.9) 11/08/18 03:09 MCV 106 fl (79-97) H 11/08/18 03:09 MCH 34 pg (28-32) H 11/08/18 03:09 MCHC 32 % (30-34) 11/08/18 03:09 RDW 17.1 % (13.2-15.2) H 11/08/18 03:09 Plt Count 178 K/mm3 (140-440) 11/08/18 03:09 Lymph % (Auto) 4.6 % (13.4-35.0) L 11/08/18 03:09 [place] % (Auto) 11.5 % (0.0-7.3) H 11/08/18 03:09 Eos % (Auto) 0.6 % (0.0-4.3) 11/08/18 03:09 Baso % (Auto) 0.3 % (0.0-1.8) 11/08/18 03:09 Lymph # 0.2 K/mm3 (1.2-5.4) L 11/08/18 03:09 [place] # 0.5 K/mm3 (0.0-0.8) 11/08/18 03:09 Eos # 0.0 K/mm3 (0.0-0.4) 11/08/18 03:09 Baso # 0.0 K/mm3 (0.0-0.1) 11/08/18 03:09 Seg Neutrophils % 83.0 % (40.0-70.0) H 11/08/18 03:09 Seg Neutrophils # 3.8 K/mm3 (1.8-7.7) 11/08/18 03:09 Sodium 137 mmol/L (137-145) 11/12/18 07:46 Potassium 3.6 mmol/L (3.6-5.0) 11/12/18 07:46 Chloride 97.7 mmol/L (98-107) L 11/12/18 07:46 Carbon Dioxide 30 mmol/L (22-30) 11/12/18 07:46 13 mmol/L 11/12/18 07:46 BUN 28 mg/dL (7-17) H 11/12/18 07:46 1.2 mg/dL (0.7-1.2) 11/12/18 07:46 Estimated GFR 54 ml/min 11/12/18 07:46 23 % 11/12/18 07:46 Glucose 100 mg/dL (65-100) 11/12/18 07:46 POC Glucose 137 (70-105) H 11/12/18 11:35 Calcium 8.0 mg/dL (8.4-10.2) L 11/12/18 07:46 Magnesium 1.70 mg/dL (1.7-2.3) 11/10/18 05:47 0.023 ng/mL (0.00-0.029) 11/08/18 08:54 Triglycerides 107 mg/dL (2-149) 11/08/18 03:09 Cholesterol 176 mg/dL (50-199) 11/08/18 03:09 137 mg/dL (50-130) H 11/08/18 03:09 33 mg/dL (40-59) L 11/08/18 03:09 5.33 % 11/08/18 03:09 Active Medications - Current Medications Current Medications: Generic Name Dose Route Start Last Admin Trade Name Freq PRN Reason Stop Dose Admin Albuterol 2.5 mg 11/09/18 08:00 11/12/18 14:45 Proventil IH 2.5 mg Q4HRT PRN Administration Shortness Of Breath Amiodarone HCl 200 mg 11/10/18 22:00 11/12/18 11:39 Cordarone PO 200 mg BID RADHA Administration Apixaban 5 mg 11/09/18 10:00 11/12/18 14:32 Eliquis PO 5 mg Q12HR RADHA Administration Protocol Aspirin 81 mg 11/09/18 10:00 11/11/18 10:36 Halfprin Ec PO 81 mg DAILY RADHA Administration Atorvastatin Calcium 40 mg 11/11/18 22:00 11/11/18 21:47 Lipitor PO 40 mg QHS RADHA Administration Bumetanide 1 mg 11/09/18 13:00 11/12/18 05:56 Bumex IV 1 mg BID@0600,1800 RADHA Administration Bupropion HCl 150 mg 11/09/18 10:00 11/11/18 21:47 Wellbutrin Sr PO 150 mg BID RADHA Administration Carvedilol 3.125 mg 11/09/18 10:00 11/12/18 14:33 Coreg PO 3.125 mg BID RADHA Administration Cyclobenzaprine HCl 10 mg 11/09/18 08:00 11/11/18 10:42 Flexeril PO 10 mg TID PRN Administration Muscle Spasm Diphenhydramine HCl 25 mg 11/09/18 10:00 11/11/18 12:10 Benadryl PO 25 mg DAILY RADHA Administration Hydromorphone HCl 0.5 mg 11/08/18 17:04 11/12/18 14:35 Dilaudid IV 0.5 mg Q3H PRN Administration Pain , Severe (7-10) Milrinone Lactate/Dextrose 20 mg in 100 mls @ 9.255 mls/hr 11/09/18 12:00 11/12/18 14:36 Milrinone-D5w 20 Mg/100 Ml IV 0.375 mcg/kg/min TITR RADHA 13.883 mls/hr Administration 0.25 MCG/KG/MIN Magnesium Oxide 400 mg 11/09/18 10:00 11/11/18 12:10 Mag-Ox PO 400 mg QDAY RADHA Administration Metolazone 5 mg 11/09/18 10:00 11/12/18 14:32 Zaroxolyn PO 5 mg QDAY RADHA Administration Ondansetron HCl 4 mg 11/11/18 13:44 11/11/18 21:53 Zofran IV 4 mg Q8H PRN Administration Nausea And Vomiting Pantoprazole Sodium 40 mg 11/13/18 10:00 Protonix IV QDAY RADHA Polyethylene Glycol 17 gm 11/09/18 10:00 Miralax 3350 PO BID PRN Constipation Sertraline HCl 50 mg 11/09/18 10:00 11/11/18 10:44 Zoloft PO Not Given DAILY RADHA Simethicone 80 mg 11/12/18 11:49 Mylicon PO Q6H PRN Gas pain Spironolactone 25 mg 11/09/18 10:00 11/12/18 14:32 Aldactone PO 25 mg QDAY RADHA Administration Sucralfate 1 gm 11/12/18 16:30 Carafate PO ACHS RADHA
[2018-11-12] MEDS: MAG-OX PO SCH (17:13)
[2018-11-12] MEDS: CARAFATE PO SCH ×2 (17:13→22:05)
[2018-11-12] MEDS: APRESOLINE PO SCH (17:14)
[2018-11-12] MEDS: ZOFRAN IV PRN (18:44)
[2018-11-12] MEDS: ZOLOFT PO SCH (18:45)
[2018-11-12] MEDS: WELLBUTRIN SR PO SCH ×2 (18:45→22:06)
[2018-11-12] MEDS: HALFPRIN EC PO SCH (18:45)
[2018-11-12] MEDS: FLEXERIL PO PRN (23:24)
[2018-11-13] MEDS: DILAUDID IV PRN (04:45)
[2018-11-13 06:15] LABS: Calcium 7.8 mg/dL (8.4-10.2)
[2018-11-13] MEDS: BUMEX IV SCH ×2 (06:31→18:08)
[2018-11-13] MEDS: CARAFATE PO SCH ×4 (07:30→21:26)
[2018-11-13] MEDS: HALFPRIN EC PO SCH (10:20)
[2018-11-13] MEDS: CORDARONE PO SCH ×2 (10:20→21:26)
[2018-11-13] MEDS: ZOLOFT PO SCH (10:20)
[2018-11-13] MEDS: ALDACTONE PO SCH (10:20)
[2018-11-13] MEDS: ZAROXOLYN PO SCH (10:20)
[2018-11-13] MEDS: BENADRYL PO SCH (10:20)
[2018-11-13] MEDS: MAG-OX PO SCH (10:21)
[2018-11-13] MEDS: WELLBUTRIN SR PO SCH ×2 (10:21→21:27)
[2018-11-13] MEDS: PROTONIX IV SCH (10:21)
[2018-11-13] MEDS: ELIQUIS PO SCH ×2 (10:21→21:26)
[2018-11-13] MEDS: COREG PO SCH ×2 (10:22→21:26)
--- NOTE | 2018-11-13 10:50 | Progress Note ---
Assessment and Plan Acute on Chronic systolic heart failure Suspect non-compliance Multiple HF admission Ascites Patient had paracentesis in previous admissions Hx of LUE DVT Hx of coronary artery disease cardiac cath 03/2018 revealed patent SVG to LAD, patent SVG to OM, patent SVG to PDA and patent diagonal stent, LVEF 10-15%. Non-specific troponin not consistent with ACS Hx of Ischemic cardiomyopathy ejection fraction 10-15% by echo 08/2018 Presence of single chamber cardiac defibrillator underlying paroxysmal atrial fibrillation previously treated with eliquis for oral anticoagulation therapy. on amiodarone and coreg Tobacco abuse Recommendations: Fluid/sodium restriction. Daily weight. Due to acute renal failure we will stop Zaroxolyn. We will also discontinue intravenous Milrinone. Continue aggressive medical therapy for paroxysmal atrial fibrillation, ischemic cardiomyopathy and chronic systolic heart failure. Subjective Date of service: 11/13/18 Principal diagnosis: Chest pain for 3 days Interval history: Patient is resting in bed comfortably. IV milrinone continues. Objective Vital Signs Temp Pulse Pulse Resp Resp BP Pulse Ox 11/13/18 10:22 84 113/65 11/13/18 10:20 84 113/65 11/13/18 10:18 113/65 11/13/18 08:21 97.6 F 18 122/70 11/13/18 04:45 20 11/13/18 04:41 98.1 F 94 H 18 111/69 86 11/12/18 23:19 98.3 F 96 H 18 108/72 98 11/12/18 20:00 95 H 11/12/18 19:58 97.4 F L 99 H 22 127/81 93 11/12/18 17:52 97.8 F 94 H 18 122/65 92 11/12/18 14:45 90 18 95 11/12/18 11:28 98.0 F 95 H 18 111/76 97 - Physical Examination General: No Apparent Distress HEENT: Positive: PERRL Neck: Positive: trachea midline Cardiac: Positive: Irregularly Regular Neuro: Positive: Grossly Intact Extremities: Present: edema - Labs and Meds Comprehensive Metabolic Panel 11/13/18 Range/Units 05:38 Sodium 137 (137-145) mmol/L Potassium 4.1 (3.6-5.0) mmol/L Chloride 97.3 L (98-107) mmol/L Carbon Dioxide 31 H (22-30) mmol/L BUN 33 H (7-17) mg/dL Creatinine 1.5 H (0.7-1.2) mg/dL Glucose 111 H (65-100) mg/dL Calcium 7.8 L (8.4-10.2) mg/dL
--- NOTE | 2018-11-13 13:55 | Progress Note ---
Assessment and Plan Assessment and plan: Acute on Chronic systolic heart failure with EF of 10-15 % -Suspect to be due to non-compliance bs of multiple HF admission -Status post single chamber cardiac defibrillator placement. -Continue IV Bumex, BB and aldactone. Off Milrinone drip. Not on ACEI due to allergy -Last echo was in 08/2018 -Cardiology following Paroxysmal atrial fibrillation -Continue oral amiodarone and Coreg -Rate currently controlled -cont oral anticoagulation with eliquis Hx of LUE DVT -cont oral anticoagulation with eliquis Hx of coronary artery disease -cardiac cath 03/2018 revealed patent SVG to LAD, patent SVG to OM, patent SVG to PDA and patent diagonal stent, LVEF 10-15%. 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 She reports feeling better today. No nausea or vomiting overnight. Hospitalist Physical - Constitutional Vitals: Temp Pulse Resp BP Pulse Ox 97.6 F 84 18 113/65 86 11/13/18 08:21 11/13/18 10:22 11/13/18 08:21 11/13/18 10:22 11/13/18 04:41 General appearance: Present: no acute distress, obese - EENT Eyes: Present: PERRL, EOM intact ENT: hearing intact, clear oral mucosa - Neck Neck: Present: supple, normal ROM - Respiratory Respiratory effort: normal Respiratory: bilateral: diminished - Cardiovascular Rhythm: regular Heart Sounds: Present: S1 & S2 - Extremities Extremity abnormal: edema (in BLE) - Abdominal General gastrointestinal: soft, tender (mild and generalized), normal bowel sounds - Integumentary Integumentary: Present: clear, warm, dry - Psychiatric Psychiatric: appropriate mood/affect - Neurologic Neurologic: CNII-XII intact Results - Labs CBC & Chem 7: 11/08/18 03:09 11/13/18 05:38 Labs: Laboratory Last Values WBC 4.6 K/mm3 (4.5-11.0) 11/08/18 03:09 RBC 3.37 M/mm3 (3.65-5.03) L 11/08/18 03:09 Hgb 11.6 gm/dl (10.1-14.3) 11/08/18 03:09 Hct 35.8 % (30.3-42.9) 11/08/18 03:09 MCV 106 fl (79-97) H 11/08/18 03:09 MCH 34 pg (28-32) H 11/08/18 03:09 MCHC 32 % (30-34) 11/08/18 03:09 RDW 17.1 % (13.2-15.2) H 11/08/18 03:09 Plt Count 178 K/mm3 (140-440) 11/08/18 03:09 Lymph % (Auto) 4.6 % (13.4-35.0) L 11/08/18 03:09 [place] % (Auto) 11.5 % (0.0-7.3) H 11/08/18 03:09 Eos % (Auto) 0.6 % (0.0-4.3) 11/08/18 03:09 Baso % (Auto) 0.3 % (0.0-1.8) 11/08/18 03:09 Lymph # 0.2 K/mm3 (1.2-5.4) L 11/08/18 03:09 [place] # 0.5 K/mm3 (0.0-0.8) 11/08/18 03:09 Eos # 0.0 K/mm3 (0.0-0.4) 11/08/18 03:09 Baso # 0.0 K/mm3 (0.0-0.1) 11/08/18 03:09 Seg Neutrophils % 83.0 % (40.0-70.0) H 11/08/18 03:09 Seg Neutrophils # 3.8 K/mm3 (1.8-7.7) 11/08/18 03:09 Sodium 137 mmol/L (137-145) 11/13/18 05:38 Potassium 4.1 mmol/L (3.6-5.0) 11/13/18 05:38 Chloride 97.3 mmol/L (98-107) L 11/13/18 05:38 Carbon Dioxide 31 mmol/L (22-30) H 11/13/18 05:38 13 mmol/L 11/13/18 05:38 BUN 33 mg/dL (7-17) H 11/13/18 05:38 1.5 mg/dL (0.7-1.2) H 11/13/18 05:38 Estimated GFR 42 ml/min 11/13/18 05:38 22 % 11/13/18 05:38 Glucose 111 mg/dL (65-100) H 11/13/18 05:38 POC Glucose 137 (70-105) H 11/12/18 11:35 Calcium 7.8 mg/dL (8.4-10.2) L 11/13/18 05:38 Magnesium 1.70 mg/dL (1.7-2.3) 11/10/18 05:47 0.023 ng/mL (0.00-0.029) 11/08/18 08:54 Triglycerides 107 mg/dL (2-149) 11/08/18 03:09 Cholesterol 176 mg/dL (50-199) 11/08/18 03:09 137 mg/dL (50-130) H 11/08/18 03:09 33 mg/dL (40-59) L 11/08/18 03:09 5.33 % 11/08/18 03:09 11 units/L (13-60) L 11/13/18 05:38 Active Medications - Current Medications Current Medications: Generic Name Dose Route Start Last Admin Trade Name Eduardoq PRN Reason Stop Dose Admin Albuterol 2.5 mg 11/09/18 08:00 11/12/18 14:45 Proventil IH 2.5 mg Q4HRT PRN Administration Shortness Of Breath Amiodarone HCl 200 mg 11/10/18 22:00 11/13/18 10:20 Cordarone PO 200 mg BID RADHA Administration Apixaban 5 mg 11/09/18 10:00 11/13/18 10:21 Eliquis PO 5 mg Q12HR RADHA Administration Protocol Aspirin 81 mg 11/09/18 10:00 11/13/18 10:20 Halfprin Ec PO 81 mg DAILY RADHA Administration Atorvastatin Calcium 40 mg 11/11/18 22:00 11/12/18 22:05 Lipitor PO 40 mg QHS RADHA Administration Bumetanide 1 mg 11/09/18 13:00 11/13/18 06:31 Bumex IV 1 mg BID@0600,1800 RADHA Administration Bupropion HCl 150 mg 11/09/18 10:00 11/13/18 10:21 Wellbutrin Sr PO 150 mg BID RADHA Administration Carvedilol 6.25 mg 11/13/18 22:00 Coreg PO BID RADHA Cyclobenzaprine HCl 10 mg 11/09/18 08:00 11/12/18 23:24 Flexeril PO 10 mg TID PRN Administration Muscle Spasm Diphenhydramine HCl 25 mg 11/09/18 10:00 11/13/18 10:20 Benadryl PO 25 mg DAILY [facility] Administration Hydromorphone HCl 0.5 mg 11/08/18 17:04 11/13/18 04:45 Dilaudid IV 0.5 mg Q3H PRN Administration Pain , Severe (7-10) Magnesium Oxide 400 mg 11/09/18 10:00 11/13/18 10:21 Mag-Ox PO 400 mg QDAY [facility] Administration Ondansetron HCl 4 mg 11/11/18 13:44 11/12/18 18:44 Zofran IV 4 mg Q8H PRN Administration Nausea And Vomiting Pantoprazole Sodium 40 mg 11/13/18 10:00 11/13/18 10:21 Protonix IV 40 mg QDAY [facility] Administration Polyethylene Glycol 17 gm 11/09/18 10:00 Miralax 3350 PO BID PRN Constipation Sertraline HCl 50 mg 11/09/18 10:00 11/13/18 10:20 Zoloft PO 50 mg DAILY RADHA Administration Simethicone 80 mg 11/12/18 11:49 Mylicon PO Q6H PRN Gas pain Spironolactone 25 mg 11/09/18 10:00 11/13/18 10:20 Aldactone PO 25 mg QDAY RADHA Administration Sucralfate 1 gm 11/12/18 16:30 11/13/18 11:55 Carafate PO 1 gm ACHS RADHA Administration
[2018-11-13] MEDS: PROVENTIL IH PRN (14:50)
[2018-11-13] MEDS: ZOFRAN IV PRN (16:35)
[2018-11-14] MEDS: MYLICON PO PRN ×2 (03:28→09:47)
[2018-11-14] MEDS: ZOFRAN IV PRN ×3 (03:28→17:35)
[2018-11-14] MEDS: FLEXERIL PO PRN ×2 (04:51→17:36)
[2018-11-14] MEDS: BUMEX IV SCH (05:10)
[2018-11-14] MEDS: PROVENTIL IH PRN (05:32)
[2018-11-14 06:40] LABS: Calcium 8.2 mg/dL (8.4-10.2)
[2018-11-14] MEDS: CARAFATE PO SCH ×4 (08:00→21:44)
[2018-11-14] MEDS: ZOLOFT PO SCH (09:46)
[2018-11-14] MEDS: CORDARONE PO SCH ×2 (09:46→21:44)
[2018-11-14] MEDS: ALDACTONE PO SCH (09:46)
[2018-11-14] MEDS: COREG PO SCH ×2 (09:46→21:45)
[2018-11-14] MEDS: WELLBUTRIN SR PO SCH ×2 (09:46→21:44)
[2018-11-14] MEDS: BENADRYL PO SCH (09:46)
[2018-11-14] MEDS: HALFPRIN EC PO SCH (09:46)
[2018-11-14] MEDS: PROTONIX IV SCH (09:47)
[2018-11-14] MEDS: ELIQUIS PO SCH ×2 (09:47→21:44)
[2018-11-14] MEDS: MAG-OX PO SCH (09:47)
--- NOTE | 2018-11-14 10:14 | Progress Note ---
Assessment and Plan Acute on Chronic systolic heart failure Suspect non-compliance Multiple HF admission Acute renal failure Ascites Patient had paracentesis in previous admissions Hx of LUE DVT Hx of coronary artery disease cardiac cath 03/2018 revealed patent SVG to LAD, patent SVG to OM, patent SVG to PDA and patent diagonal stent, LVEF 10-15%. Non-specific troponin not consistent with ACS Hx of Ischemic cardiomyopathy ejection fraction 10-15% by echo 08/2018 Presence of single chamber cardiac defibrillator underlying paroxysmal atrial fibrillation previously treated with eliquis for oral anticoagulation therapy. on amiodarone and coreg Tobacco abuse Recommendations: Fluid/sodium restriction. Daily weight. We will change intravenous Bumex to oral form. Continue aggressive medical therapy for paroxysmal atrial fibrillation, ischemic cardiomyopathy and chronic systolic heart failure. Subjective Date of service: 11/14/18 Principal diagnosis: Chest pain for 3 days Interval history: Patient is resting in bed comfortably. Short burst of NSVT seen on telemetry overnight. Noted a trend upwards of creatinine. Objective Vital Signs Temp Pulse Pulse Pulse Resp Resp BP 11/14/18 09:51 115/61 11/14/18 09:46 89 115/61 11/14/18 08:31 98.6 F 87 20 122/82 11/14/18 08:00 90 11/14/18 05:47 84 26 H 11/14/18 04:03 98.3 F 87 18 110/68 11/14/18 00:30 98.1 F 88 18 125/64 11/14/18 00:00 87 11/13/18 21:24 11/13/18 19:44 97.9 F 89 18 122/77 11/13/18 17:23 92 H 11/13/18 14:38 11/13/18 14:00 89 92 H 18 11/13/18 12:11 97.5 F L 18 96/51 11/13/18 10:22 84 113/65 11/13/18 10:20 84 113/65 11/13/18 10:18 113/65 Pulse Ox 11/14/18 09:51 11/14/18 09:46 11/14/18 08:31 95 11/14/18 08:00 11/14/18 05:47 11/14/18 04:03 86 11/14/18 00:30 93 11/14/18 00:00 11/13/18 21:24 100 11/13/18 19:44 96 11/13/18 17:23 11/13/18 14:38 98 11/13/18 14:00 11/13/18 12:11 11/13/18 10:22 11/13/18 10:20 11/13/18 10:18 - Physical Examination General: No Apparent Distress HEENT: Positive: PERRL Neck: Positive: trachea midline Cardiac: Positive: irregularly irregular Lungs: Positive: Decreased Breath Sounds Neuro: Positive: Grossly Intact Extremities: Present: edema - Labs and Meds Comprehensive Metabolic Panel 11/14/18 Range/Units 06:07 Sodium 135 L (137-145) mmol/L Potassium 4.5 (3.6-5.0) mmol/L Chloride 96.8 L (98-107) mmol/L Carbon Dioxide 28 (22-30) mmol/L BUN 36 H (7-17) mg/dL Creatinine 1.9 H (0.7-1.2) mg/dL Glucose 117 H (65-100) mg/dL Calcium 8.2 L (8.4-10.2) mg/dL
--- NOTE | 2018-11-14 14:29 | Progress Note ---
Assessment and Plan Assessment and plan: Acute on Chronic systolic heart failure with EF of 10-15 % -Suspect to be due to non-compliance bs of multiple HF admission -Status post single chamber cardiac defibrillator placement. -Bumex changed to oral, cont BB and aldactone. Off Milrinone drip. Not on ACEI due to allergy -Last echo was in 08/2018 -Cardiology following Paroxysmal atrial fibrillation -Continue oral amiodarone and Coreg -Rate currently controlled -cont oral anticoagulation with eliquis Hx of LUE DVT -cont oral anticoagulation with eliquis Hx of coronary artery disease -cardiac cath 03/2018 revealed patent SVG to LAD, patent SVG to OM, patent SVG to PDA and patent diagonal stent, LVEF 10-15%. -Continue medical management Elevated troponin -Likely demand ischemia due to the acute process -Level trended down Generalized abdominal pain with nausea/vomiting -Abdominal series negative for acute findings -Probably due to GERD/gastritis -Continue PPI, anti-emetics and sucralfate KERWIN, likely vasomotor nephropathy/diuretic use -Cr level cont to trend up, will monitor HLD -On statin H/o HTN -Blood pressure stable Tobacco abuse -Patient counseled on cessation Morbid obesity with BMI of 42.9 -Lifestyle modification recommended Physical deconditioning -PT/OT following Disposition: For discharge when medically stable and cleared by cardiology History Interval history: Patient reports vomiting last night. Her abdominal pain has slightly improved. She denies chest pain or sob Hospitalist Physical - Constitutional Vitals: Temp Pulse Resp BP Pulse Ox 97.9 F 56 L 20 124/53 98 11/14/18 12:16 11/14/18 12:16 11/14/18 12:16 11/14/18 12:16 11/14/18 12:16 General appearance: Present: no acute distress, obese - EENT Eyes: Present: PERRL, EOM intact ENT: hearing intact, clear oral mucosa - Neck Neck: Present: supple - Respiratory Respiratory effort: normal Respiratory: bilateral: CTA, diminished - Cardiovascular Rhythm: regular Heart Sounds: Present: S1 & S2 - Extremities Extremity abnormal: edema (in BLE improving) - Abdominal General gastrointestinal: soft, tender (Mild and generalized), normal bowel sounds - Integumentary Integumentary: Present: clear, warm, dry - Psychiatric Psychiatric: appropriate mood/affect - Neurologic Neurologic: CNII-XII intact Results - Labs CBC & Chem 7: 11/08/18 03:09 11/14/18 06:07 Labs: Laboratory Last Values WBC 4.6 K/mm3 (4.5-11.0) 11/08/18 03:09 RBC 3.37 M/mm3 (3.65-5.03) L 11/08/18 03:09 Hgb 11.6 gm/dl (10.1-14.3) 11/08/18 03:09 Hct 35.8 % (30.3-42.9) 11/08/18 03:09 MCV 106 fl (79-97) H 11/08/18 03:09 MCH 34 pg (28-32) H 11/08/18 03:09 MCHC 32 % (30-34) 11/08/18 03:09 RDW 17.1 % (13.2-15.2) H 11/08/18 03:09 Plt Count 178 K/mm3 (140-440) 11/08/18 03:09 Lymph % (Auto) 4.6 % (13.4-35.0) L 11/08/18 03:09 [place] % (Auto) 11.5 % (0.0-7.3) H 11/08/18 03:09 Eos % (Auto) 0.6 % (0.0-4.3) 11/08/18 03:09 Baso % (Auto) 0.3 % (0.0-1.8) 11/08/18 03:09 Lymph # 0.2 K/mm3 (1.2-5.4) L 11/08/18 03:09 [place] # 0.5 K/mm3 (0.0-0.8) 11/08/18 03:09 Eos # 0.0 K/mm3 (0.0-0.4) 11/08/18 03:09 Baso # 0.0 K/mm3 (0.0-0.1) 11/08/18 03:09 Seg Neutrophils % 83.0 % (40.0-70.0) H 11/08/18 03:09 Seg Neutrophils # 3.8 K/mm3 (1.8-7.7) 11/08/18 03:09 Sodium 135 mmol/L (137-145) L 11/14/18 06:07 Potassium 4.5 mmol/L (3.6-5.0) 11/14/18 06:07 Chloride 96.8 mmol/L (98-107) L 11/14/18 06:07 Carbon Dioxide 28 mmol/L (22-30) 11/14/18 06:07 15 mmol/L 11/14/18 06:07 BUN 36 mg/dL (7-17) H 11/14/18 06:07 1.9 mg/dL (0.7-1.2) H 11/14/18 06:07 Estimated GFR 32 ml/min 11/14/18 06:07 19 % 11/14/18 06:07 Glucose 117 mg/dL (65-100) H 11/14/18 06:07 POC Glucose 137 (70-105) H 11/12/18 11:35 Calcium 8.2 mg/dL (8.4-10.2) L 11/14/18 06:07 Magnesium 1.70 mg/dL (1.7-2.3) 11/10/18 05:47 0.023 ng/mL (0.00-0.029) 11/08/18 08:54 Triglycerides 107 mg/dL (2-149) 11/08/18 03:09 Cholesterol 176 mg/dL (50-199) 11/08/18 03:09 137 mg/dL (50-130) H 11/08/18 03:09 33 mg/dL (40-59) L 11/08/18 03:09 5.33 % 11/08/18 03:09 11 units/L (13-60) L 11/13/18 05:38 Active Medications - Current Medications Current Medications: Generic Name Dose Route Start Last Admin Trade Name Freq PRN Reason Stop Dose Admin Albuterol 2.5 mg 11/09/18 08:00 11/14/18 05:32 Proventil IH 2.5 mg Q4HRT PRN Administration Shortness Of Breath Amiodarone HCl 200 mg 11/10/18 22:00 11/14/18 09:46 Cordarone PO 200 mg BID RADHA Administration Apixaban 5 mg 11/09/18 10:00 11/14/18 09:47 Eliquis PO 5 mg Q12HR RADHA Administration Protocol Aspirin 81 mg 11/09/18 10:00 11/14/18 09:46 Halfprin Ec PO 81 mg DAILY [facility] Administration Atorvastatin Calcium 40 mg 11/11/18 22:00 11/13/18 21:26 Lipitor PO 40 mg QHS RADHA Administration Bumetanide 1 mg 11/14/18 18:00 Bumex PO 0600,1800 [facility] Bupropion HCl 150 mg 11/09/18 10:00 11/14/18 09:46 Wellbutrin Sr PO 150 mg BID RADHA Administration Carvedilol 6.25 mg 11/13/18 22:00 11/14/18 09:46 Coreg PO 6.25 mg BID [facility] Administration Cyclobenzaprine HCl 10 mg 11/09/18 08:00 11/14/18 04:51 Flexeril PO 10 mg TID PRN Administration Muscle Spasm Diphenhydramine HCl 25 mg 11/09/18 10:00 11/14/18 09:46 Benadryl PO 25 mg DAILY [facility] Administration Hydromorphone HCl 0.5 mg 11/08/18 17:04 11/13/18 04:45 Dilaudid IV 0.5 mg Q3H PRN Administration Pain , Severe (7-10) Magnesium Oxide 400 mg 11/09/18 10:00 11/14/18 09:47 Mag-Ox PO 400 mg QDAY [facility] Administration Metolazone 5 mg 11/21/18 10:00 Zaroxolyn PO [facility] Ondansetron HCl 4 mg 11/11/18 13:44 11/14/18 09:47 Zofran IV 4 mg Q8H PRN Administration Nausea And Vomiting Pantoprazole Sodium 40 mg 11/13/18 10:00 11/14/18 09:47 Protonix IV 40 mg QDAY [facility] Administration Polyethylene Glycol 17 gm 11/09/18 10:00 Miralax 3350 PO BID PRN Constipation Sertraline HCl 50 mg 11/09/18 10:00 11/14/18 09:46 Zoloft PO 50 mg DAILY [facility] Administration Simethicone 80 mg 11/12/18 11:49 11/14/18 09:47 Mylicon PO 80 mg Q6H PRN Administration Gas pain Spironolactone 25 mg 11/09/18 10:00 11/14/18 09:46 Aldactone PO 25 mg QDAY [facility] Administration Sucralfate 1 gm 11/12/18 16:30 11/14/18 11:58 Carafate PO 1 gm ACHS RADHA Administration
[2018-11-14] MEDS: BUMEX PO SCH (17:36)
--- NOTE | 2018-11-15 00:18 | Progress Note ---
Assessment and Plan Acute on Chronic systolic heart failure Suspect non-compliance Multiple HF admission Acute renal failure Ascites Patient had paracentesis in previous admissions Hx of LUE DVT Hx of coronary artery disease cardiac cath 03/2018 revealed patent SVG to LAD, patent SVG to OM, patent SVG to PDA and patent diagonal stent, LVEF 10-15%. Non-specific troponin not consistent with ACS Hx of Ischemic cardiomyopathy ejection fraction 10-15% by echo 08/2018 Presence of single chamber cardiac defibrillator underlying paroxysmal atrial fibrillation previously treated with eliquis for oral anticoagulation therapy. on amiodarone and coreg Tobacco abuse Recommendations: Fluid/sodium restriction. Daily weight. Continue aggressive medical therapy for paroxysmal atrial fibrillation, ischemic cardiomyopathy and chronic systolic heart failure. Subjective Date of service: 11/15/18 Principal diagnosis: Chest pain for 3 days Interval history: No acute events. resting comfortably. Objective Vital Signs Temp Pulse Pulse Pulse Resp Resp BP 11/15/18 00:01 98.0 F 80 18 94/60 11/14/18 21:45 70 117/70 11/14/18 20:00 80 22 11/14/18 19:55 98.0 F 87 18 117/70 11/14/18 17:08 98.4 F 61 18 107/56 11/14/18 17:00 88 11/14/18 12:16 97.9 F 56 L 20 124/53 11/14/18 09:51 115/61 11/14/18 09:46 89 115/61 11/14/18 09:00 86 11/14/18 08:31 98.6 F 87 20 122/82 11/14/18 08:00 90 11/14/18 05:47 84 26 H 11/14/18 04:03 98.3 F 87 18 110/68 11/14/18 00:30 98.1 F 88 18 125/64 Pulse Ox 11/15/18 00:01 98 11/14/18 21:45 11/14/18 20:00 11/14/18 19:55 93 11/14/18 17:08 92 11/14/18 17:00 11/14/18 12:16 98 11/14/18 09:51 11/14/18 09:46 11/14/18 09:00 11/14/18 08:31 95 11/14/18 08:00 11/14/18 05:47 11/14/18 04:03 86 11/14/18 00:30 93 - Physical Examination General: No Apparent Distress HEENT: Positive: PERRL Neck: Positive: trachea midline Neuro: Positive: Grossly Intact Abdomen: Positive: Ascites Extremities: Present: edema - Labs and Meds Comprehensive Metabolic Panel 11/14/18 Range/Units 06:07 Sodium 135 L (137-145) mmol/L Potassium 4.5 (3.6-5.0) mmol/L Chloride 96.8 L (98-107) mmol/L Carbon Dioxide 28 (22-30) mmol/L BUN 36 H (7-17) mg/dL Creatinine 1.9 H (0.7-1.2) mg/dL Glucose 117 H (65-100) mg/dL Calcium 8.2 L (8.4-10.2) mg/dL
[2018-11-15] MEDS: ZOFRAN IV PRN (04:05)
[2018-11-15] MEDS: MYLICON PO PRN (04:05)
[2018-11-15] MEDS: BUMEX PO SCH ×2 (05:13→18:00)
[2018-11-15] MEDS ORDERED: VERSED IV ONE ×2 (06:02→11:31)
[2018-11-15] MEDS ORDERED: ADRENALIN ONE (06:02)
[2018-11-15] MEDS ORDERED: ARTIFICIAL TEARS OPHTH OINT OU PRN (06:19)
[2018-11-15] MEDS ORDERED: VASELINE LIP THERAPY TP PRN (06:19)
--- NOTE | 2018-11-15 06:19 | Event Note ---
ED MHilda. CODE Blue note I was called to the floor for a CODE BLUE in progress. Upon my arrival the patient was being bagged by respiratory therapy via BVM and receiving chest compressions from nursing. Hospitalists Dr. Martínez and Elidia at bedside conducting ACLS protocols. During intubation the patient was observed having a weak gag reflex indicating ROSC. Patient was intubated without incident and left in the care hospitalists at bedside The patient was intubated via orotracheal route using a 7.5 mm endotracheal tube. Rapid sequence induction was not used. Positioning was confirmed using auscultation and CO2 detector.
--- NOTE | 2018-11-15 06:27 | Event Note ---
<MINAL MARTÍNZE E - Last Filed: 11/15/18 06:56> Date: 11/15/18 CODE BLUE Initial rhythm PEA, patient with respiratory arrest 1 round of epinephrine given with ROSC, start sedation Intubated by Dr. Vizcarra transfer to ICU, check labs, cardiac enzymes patient signed out to Dr Rubin <RONNIE RUBIN - Last Filed: 11/15/18 07:59> I immediately signed out to Dr. Levin who is the attending for Ms. Urbano after Dr. Martínez told me.
[2018-11-15] MEDS ORDERED: VERSED IV PRN (06:32)
--- NOTE | 2018-11-15 06:58 | XRay Report ---
CHEST 1 VIEW INDICATION / CLINICAL INFORMATION: ETT placement. COMPARISON: 11/08/2018 FINDINGS: SUPPORT DEVICES: ICD remains in place on the left. Endotracheal tube is now been placed appearing to be in good position above the sydnee. HEART / MEDIASTINUM: Relatively severe cardiomegaly is unchanged. LUNGS / PLEURA: There is mild to moderate venous congestion and developing pulmonary edema. No effusi ons are seen. No pneumothorax. ADDITIONAL FINDINGS: No significant additional findings. IMPRESSION: 1. 1. ET tube in good position. 2. Developing pulmonary edema. Signer Name: Rikki Landers MD Signed: 11/15/2018 6:54 AM Workstation Name: [id number]
[2018-11-15] MEDS ORDERED: MIDAZOLAM 100 MG in NACL 0.9% 80 ML IV SCH (07:00)
[2018-11-15] MEDS ORDERED: DIPRIVAN 10 MG/ML 1,000 MG/100 ML BOTTLE IV SCH (07:00)
[2018-11-15] MEDS: NEO-SYNEPHRINE 100 MG in NACL 0.9% 90 ML IV SCH ×2 (07:05→19:00)
[2018-11-15] MEDS: CARAFATE PO SCH ×4 (07:30→21:19)
[2018-11-15] MEDS: ALDACTONE PO SCH (10:00)
[2018-11-15] MEDS: PROTONIX IV SCH (10:00)
[2018-11-15] MEDS: ZOLOFT PO SCH (10:00)
[2018-11-15] MEDS: CORDARONE PO SCH ×2 (10:00→21:19)
[2018-11-15] MEDS: MAG-OX PO SCH (10:00)
[2018-11-15] MEDS: HALFPRIN EC PO SCH (10:00)
[2018-11-15] MEDS: ELIQUIS PO SCH ×2 (10:00→21:19)
[2018-11-15] MEDS: WELLBUTRIN SR PO SCH ×2 (10:00→21:19)
--- NOTE | 2018-11-15 12:59 | Consultation ---
History of Present Illness Consult date: 11/15/18 Requesting physician: MINAL SOLIS Reason for consult: other (Cardiac Arrest) History of present illness: 68 y/o female with known CHF, systolic has been admitted for several days being diuresed who had a cardiac arrest this am. Details are not exactly clear but based on IMS note, she was PEA but the activity was not described. Intubated by ED and transitioned to the ICU. patient is awake and alert. Not on sedation. Following commands. Past History Past Medical History: atrial fib, CAD, COPD, heart failure Past Surgical History: PTCA Medications and Allergies Allergies Allergy/AdvReac Type Severity Reaction Status Date / Time lisinopril Allergy Anaphylaxis Verified 02/24/18 09:15 Penicillins Allergy Seizure Verified 02/24/18 09:15 Sulfa (Sulfonamide AdvReac Hives Verified 02/24/18 09:15 Antibiotics) Home Medications Medication Instructions Recorded Confirmed Last Taken Type Aspirin [Adult Aspirin] 81 mg PO DAILY 02/24/18 11/08/18 05/09/18 History Spironolactone [Aldactone] 25 mg PO QDAY 02/24/18 11/08/18 05/09/18 History buPROPion SR [Wellbutrin SR] 150 mg PO BID 02/24/18 11/08/18 05/09/18 History Albuterol Sulfate [Ventolin HFA] 1 puff IH Q6H PRN 30 Days 03/03/18 11/08/18 05/09/18 Rx [email or web address] Cyclobenzaprine [Flexeril 10 MG 10 mg PO TID PRN 05/10/18 11/08/18 05/09/18 History TAB] Diphenhydramine HCl [Allergy 25 mg PO DAILY 05/10/18 11/08/18 05/09/18 History Relief] ISOSORBIDE MONOnitrate [Imdur ER] 60 mg PO QDAY 05/10/18 11/08/18 05/09/18 History Sertraline HCl [Zoloft] 50 mg PO DAILY 05/10/18 11/08/18 05/09/18 History hydrALAZINE [Apresoline TAB] 25 mg PO Q8HR 05/10/18 11/08/18 05/09/18 History Apixaban [Eliquis] 5 mg PO Q12HR #60 tablet 07/02/18 11/08/18 Unknown Rx Pantoprazole [Protonix TAB] 40 mg PO QDAY #30 tablet 07/02/18 11/08/18 Unknown Rx Polyethylene Glycol 3350 [Miralax 17 gm PO BID PRN #30 powd.pack 07/02/18 11/08/18 Unknown Rx 3350] Carvedilol [Coreg] 3.125 mg PO BID #60 tablet 09/10/18 11/08/18 Unknown Rx Magnesium Oxide [Mag-Ox] 400 mg PO QDAY #7 tablet 10/04/18 11/08/18 Unknown Rx Potassium Chloride [K-Dur] 20 meq PO QDAY #7 tablet 10/04/18 11/08/18 Unknown Rx Torsemide [Demadex] 40 mg PO BID #60 tablet 10/04/18 11/08/18 Unknown Rx metOLazone [Zaroxolyn] 5 mg PO QDAY #30 tablet 10/04/18 11/08/18 Unknown Rx Active Meds: Active Medications Albuterol (Proventil) 2.5 mg IH Q4HRT PRN PRN Reason: Shortness Of Breath Last Admin: 11/14/18 05:32 Dose: 2.5 mg Documented by: Amiodarone HCl (Cordarone) 200 mg PO BID [facility] Last Admin: 11/15/18 10:00 Dose: Not Given Documented by: Apixaban (Eliquis) 5 mg PO Q12HR [facility]; Protocol Last Admin: 11/15/18 10:00 Dose: Not Given Documented by: Aspirin (Halfprin Ec) 81 mg PO DAILY [facility] Last Admin: 11/15/18 10:00 Dose: Not Given Documented by: Atorvastatin Calcium (Lipitor) 40 mg PO QHS [facility] Last Admin: 11/14/18 21:44 Dose: 40 mg Documented by: Bumetanide (Bumex) 1 mg PO 0600,1800 [facility] Last Admin: 11/15/18 05:13 Dose: 1 mg Documented by: Bupropion HCl (Wellbutrin Sr) 150 mg PO BID [facility] Last Admin: 11/15/18 10:00 Dose: Not Given Documented by: Cyclobenzaprine HCl (Flexeril) 10 mg PO TID PRN PRN Reason: Muscle Spasm Last Admin: 11/14/18 17:36 Dose: 10 mg Documented by: Hydrophilic Ointment (Vaseline Lip Therapy) 1 applic TP Q2HR PRN PRN Reason: Dry Lips Midazolam HCl 100 mg/ Sodium (Chloride) 100 mls @ 2 mls/hr IV TITR [facility]; Protocol Phenylephrine HCl 100 mg/ (Sodium Chloride) 100 mls @ 3 mls/hr IV TITR [facility]; Protocol Last Titration: 11/15/18 08:48 Dose: 100 mcg/min, 6 mls/hr Documented by: Magnesium Oxide (Mag-Ox) 400 mg PO QDAY [facility] Last Admin: 11/15/18 10:00 Dose: Not Given Documented by: Metolazone (Zaroxolyn) 5 mg PO [facility] Multi-Ingred Cream/Lotion/Oil/Oint (Artificial Tears Ophth Oint) 1 applic OU Q4HR PRN PRN Reason: Dry Eye(s) Ondansetron HCl (Zofran) 4 mg IV Q8H PRN PRN Reason: Nausea And Vomiting Last Admin: 11/15/18 04:05 Dose: 4 mg Documented by: Pantoprazole Sodium (Protonix) 40 mg IV QDAY [facility] Last Admin: 11/15/18 10:00 Dose: 40 mg Documented by: Polyethylene Glycol (Miralax 3350) 17 gm PO BID PRN PRN Reason: Constipation Sertraline HCl (Zoloft) 50 mg PO DAILY [facility] Last Admin: 11/15/18 10:00 Dose: Not Given Documented by: Simethicone (Mylicon) 80 mg PO Q6H PRN PRN Reason: Gas pain Last Admin: 11/15/18 04:05 Dose: 80 mg Documented by: Spironolactone (Aldactone) 25 mg PO QDAY [facility] Last Admin: 11/15/18 10:00 Dose: Not Given Documented by: Sucralfate (Carafate) 1 gm PO ACHS [facility] Last Admin: 11/15/18 11:30 Dose: Not Given Documented by: Review of Systems ROS unobtainable: due to endotracheal tube Physical Examination Vital signs: Vital Signs Pulse Resp Pulse Ox 59 L 13 100 11/08/18 05:30 11/08/18 05:30 11/08/18 05:30 General appearance: no acute distress, alert, appears uncomfortable, other (obese) Eyes: non-icteric ENT: other (orally intubated, not sedated) Neck: supple Effort: normal Ascultation: Bilateral: clear Percussion: Bilateral: not dull Cardiovascular: regular rate and rhythm Gastrointestinal: soft Results - Laboratory Findings CBC and BMP: 11/16/18 05:35 11/16/18 05:35 ABG POC ABG pH 7.533 (7.35-7.45) H 11/15/18 08:50 POC ABG pCO2 33.9 (35-45) L 11/15/18 08:50 POC ABG pO2 237 (80-105) H 11/15/18 08:50 POC ABG HCO3 28.5 (22-26 mml/L) 11/15/18 08:50 POC ABG Total CO2 30 (23-27mmol/L) 11/15/18 08:50 POC ABG O2 Sat 100 11/15/18 08:50 Abnormal lab findings: Abnormal Labs 11/08/18 11/08/18 11/08/18 03:09 03:09 05:50 RBC 3.37 L MCV 106 H MCH 34 H RDW 17.1 H Lymph % (Auto) 4.6 L [place] % (Auto) 11.5 H Lymph # 0.2 L Seg Neutrophils % 83.0 H POC ABG pH POC ABG pCO2 POC ABG pO2 Sodium 135 L Chloride Carbon Dioxide BUN 29 H Creatinine 1.4 H Glucose POC Glucose Calcium 8.1 L Troponin T 0.042 H 0.039 H LDL Cholesterol Direct 137 H HDL Cholesterol 33 L Lipase 11/10/18 11/10/18 11/10/18 05:47 07:32 13:08 RBC MCV MCH RDW Lymph % (Auto) [place] % (Auto) Lymph # Seg Neutrophils % POC ABG pH POC ABG pCO2 POC ABG pO2 Sodium Chloride Carbon Dioxide 32 H BUN 25 H Creatinine Glucose 104 H POC Glucose 115 H 142 H Calcium 7.9 L Troponin T LDL Cholesterol Direct HDL Cholesterol Lipase 11/10/18 11/10/18 11/11/18 16:55 21:21 07:51 RBC MCV MCH RDW Lymph % (Auto) [place] % (Auto) Lymph # Seg Neutrophils % POC ABG pH POC ABG pCO2 POC ABG pO2 Sodium Chloride Carbon Dioxide BUN Creatinine Glucose POC Glucose 125 H 126 H 118 H Calcium Troponin T LDL Cholesterol Direct HDL Cholesterol Lipase 11/11/18 11/11/18 11/12/18 12:25 21:32 07:46 RBC MCV MCH RDW Lymph % (Auto) [place] % (Auto) Lymph # Seg Neutrophils % POC ABG pH POC ABG pCO2 POC ABG pO2 Sodium Chloride 97.7 L Carbon Dioxide BUN 28 H Creatinine Glucose POC Glucose 125 H 126 H Calcium 8.0 L Troponin T LDL Cholesterol Direct HDL Cholesterol Lipase 11/12/18 11/12/18 11/13/18 08:57 11:35 05:38 RBC MCV MCH RDW Lymph % (Auto) [place] % (Auto) Lymph # Seg Neutrophils % POC ABG pH POC ABG pCO2 POC ABG pO2 Sodium Chloride 97.3 L Carbon Dioxide 31 H BUN 33 H Creatinine 1.5 H Glucose 111 H POC Glucose 120 H 137 H Calcium 7.8 L Troponin T LDL Cholesterol Direct HDL Cholesterol Lipase 11/13/18 11/14/18 11/15/18 05:38 06:07 06:11 RBC MCV MCH RDW Lymph % (Auto) [place] % (Auto) Lymph # Seg Neutrophils % POC ABG pH POC ABG pCO2 POC ABG pO2 Sodium 135 L Chloride 96.8 L Carbon Dioxide BUN 36 H Creatinine 1.9 H Glucose 117 H POC Glucose 128 H Calcium 8.2 L Troponin T LDL Cholesterol Direct HDL Cholesterol Lipase 11 L 11/15/18 08:50 RBC MCV MCH RDW Lymph % (Auto) [place] % (Auto) Lymph # Seg Neutrophils % POC ABG pH 7.533 H POC ABG pCO2 33.9 L POC ABG pO2 237 H Sodium Chloride Carbon Dioxide BUN Creatinine Glucose POC Glucose Calcium Troponin T LDL Cholesterol Direct HDL Cholesterol Lipase - Diagnostic Findings Chest x-ray: image reviewed (severe cardiomegaly.) Assessment and Plan 68 y/o female with known systolic heart failure, admitted post cardiac arrest, intubated, awake and alert. 1. Will attempt extubation 2. Not sure what the rhthym was in the arrest but documented as PEA 3. Follow up any new cards recs 4. Will monitor in ICU post extubation. CCT 31 minutes.
--- NOTE | 2018-11-15 13:12 | XRay Report ---
CHEST 1 VIEW 11/15/2018 12:46 PM INDICATION / CLINICAL INFORMATION: PICC line. COMPARISON: This study at 12:46 PM was compared to earlier study at 6:35 AM same day FINDINGS: SUPPORT DEVICES: New right PICC line has tip in SVC. ET tube and left subclavian ICD/pacemaker leads again project in expected position. HEART / MEDIASTINUM: Cardiac silhouette remains markedly enlarged LUNGS / PLEURA: Mild interstitial edema and left basilar pleural-parenchymal disease, unchanged No pn eumothorax. ADDITIONAL FINDINGS: No significant additional findings. IMPRESSION: 1. Stable chest Signer Name: Alexey Brito MD Signed: 11/15/2018 1:07 PM Workstation Name: [id number]
--- NOTE | 2018-11-15 13:32 | Progress Note ---
Assessment and Plan Assessment and plan: Patient is a 68 year old -[place] female who was initially admitted for acute on chronic systolic heart failure. She was managed with IV milrinone drip and IV bumex by cardiology. The drip was discontinued on 11/13 while the IV Bumex was changed to oral on 11/14. Early this morning, she coded and was successfully resuscitated and transferred to the ICU S/p PEA cardiac arrest -Successfully resuscitated -Cardiology to follow-up Acute on chronic respiratory failure with hypoxia -Status post intubation on mechanical ventilator -Pulmonology consulted Shock -Probably cardiogenic -On IV pressor, monitor blood pressure Acute on Chronic systolic heart failure with EF of 10-15 % -Suspect to be due to non-compliance bs of multiple HF admission -Status post single chamber cardiac defibrillator placement. -On oral bumex, BB and aldactone. Off Milrinone drip. Not on ACEI due to allergy -Repeat chest x-ray today showed developing pulmonary edema -Last echo was in 08/2018 -Mgx by Cardiology Paroxysmal atrial fibrillation -On oral amiodarone and Coreg -Rate currently controlled -On oral anticoagulation with eliquis Hx of LUE DVT -cont oral anticoagulation with eliquis Hx of coronary artery disease -cardiac cath 03/2018 revealed patent SVG to LAD, patent SVG to OM, patent SVG to PDA and patent diagonal stent, LVEF 10-15%. -Continue medical management Elevated troponin on admission -Likely demand ischemia due to the acute process -Level trended down Generalized abdominal pain with nausea/vomiting -Abdominal series negative for acute findings. Lipase neg -Probably due to GERD/gastritis -Continue PPI, anti-emetics and sucralfate KERWIN, likely vasomotor nephropathy/diuretic use -Cr level trended up, will monitor COPD -No acute exacerbation -On neb tx HLD -On statin H/o HTN -Currently hypotensive on IV pressor Tobacco abuse -Patient counseled on cessation Morbid obesity with BMI of 42.9 -Lifestyle modification recommended Disposition: Patient's condition is guarded and overall prognosis is poor. Continue treatment in the ICU Time spent: 38 minutes History Interval history: Patient went into PEA arrest early this morning. She was successfully resuscitated and intubated, then transferred to the ICU on MV. Not on sedation and awake. Hospitalist Physical - Constitutional Vitals: Temp Pulse Resp BP Pulse Ox 98.0 F 72 22 110/52 96 11/15/18 03:21 11/15/18 12:37 11/15/18 08:00 11/15/18 12:37 11/15/18 12:37 General appearance: Present: no acute distress, obese, other (intubate, but awake) - EENT Eyes: Present: PERRL, EOM intact ENT: hearing intact, clear oral mucosa - Neck Neck: Present: supple - Respiratory Respiratory effort: normal Respiratory: bilateral: rales - Cardiovascular Rhythm: regular Heart Sounds: Present: S1 & S2 - Extremities Extremity abnormal: edema (in BLE) - Abdominal General gastrointestinal: soft, tender (Mild and generalized), normal bowel sounds - Integumentary Integumentary: Present: clear, warm, dry - Neurologic Neurologic: moves all extremities Results - Labs CBC & Chem 7: 11/08/18 03:09 11/14/18 06:07 Labs: Laboratory Last Values WBC 4.6 K/mm3 (4.5-11.0) 11/08/18 03:09 RBC 3.37 M/mm3 (3.65-5.03) L 11/08/18 03:09 Hgb 11.6 gm/dl (10.1-14.3) 11/08/18 03:09 Hct 35.8 % (30.3-42.9) 11/08/18 03:09 MCV 106 fl (79-97) H 11/08/18 03:09 MCH 34 pg (28-32) H 11/08/18 03:09 MCHC 32 % (30-34) 11/08/18 03:09 RDW 17.1 % (13.2-15.2) H 11/08/18 03:09 Plt Count 178 K/mm3 (140-440) 11/08/18 03:09 Lymph % (Auto) 4.6 % (13.4-35.0) L 11/08/18 03:09 [place] % (Auto) 11.5 % (0.0-7.3) H 11/08/18 03:09 Eos % (Auto) 0.6 % (0.0-4.3) 11/08/18 03:09 Baso % (Auto) 0.3 % (0.0-1.8) 11/08/18 03:09 Lymph # 0.2 K/mm3 (1.2-5.4) L 11/08/18 03:09 [place] # 0.5 K/mm3 (0.0-0.8) 11/08/18 03:09 Eos # 0.0 K/mm3 (0.0-0.4) 11/08/18 03:09 Baso # 0.0 K/mm3 (0.0-0.1) 11/08/18 03:09 Seg Neutrophils % 83.0 % (40.0-70.0) H 11/08/18 03:09 Seg Neutrophils # 3.8 K/mm3 (1.8-7.7) 11/08/18 03:09 POC ABG pH 7.533 (7.35-7.45) H 11/15/18 08:50 POC ABG pCO2 33.9 (35-45) L 11/15/18 08:50 POC ABG pO2 237 (80-105) H 11/15/18 08:50 POC ABG HCO3 28.5 (22-26 mml/L) 11/15/18 08:50 POC ABG Total CO2 30 (23-27mmol/L) 11/15/18 08:50 POC ABG O2 Sat 100 11/15/18 08:50 POC ABG Base Excess 6 ((-2) - (+3)mmol/L) 11/15/18 08:50 100 % 11/15/18 08:50 Sodium 135 mmol/L (137-145) L 11/14/18 06:07 Potassium 4.5 mmol/L (3.6-5.0) 11/14/18 06:07 Chloride 96.8 mmol/L (98-107) L 11/14/18 06:07 Carbon Dioxide 28 mmol/L (22-30) 11/14/18 06:07 15 mmol/L 11/14/18 06:07 BUN 36 mg/dL (7-17) H 11/14/18 06:07 1.9 mg/dL (0.7-1.2) H 11/14/18 06:07 Estimated GFR 32 ml/min 11/14/18 06:07 19 % 11/14/18 06:07 Glucose 117 mg/dL (65-100) H 11/14/18 06:07 POC Glucose 128 (70-105) H 11/15/18 06:11 Calcium 8.2 mg/dL (8.4-10.2) L 11/14/18 06:07 Magnesium 1.70 mg/dL (1.7-2.3) 11/10/18 05:47 0.023 ng/mL (0.00-0.029) 11/08/18 08:54 Triglycerides 107 mg/dL (2-149) 11/08/18 03:09 Cholesterol 176 mg/dL (50-199) 11/08/18 03:09 137 mg/dL (50-130) H 11/08/18 03:09 33 mg/dL (40-59) L 11/08/18 03:09 5.33 % 11/08/18 03:09 11 units/L (13-60) L 11/13/18 05:38 Active Medications - Current Medications Current Medications: Generic Name Dose Route Start Last Admin Trade Name Freq PRN Reason Stop Dose Admin Albuterol 2.5 mg 11/09/18 08:00 11/14/18 05:32 Proventil IH 2.5 mg Q4HRT PRN Administration Shortness Of Breath Amiodarone HCl 200 mg 11/10/18 22:00 11/15/18 10:00 Cordarone PO Not Given BID [facility] Apixaban 5 mg 11/09/18 10:00 11/15/18 10:00 Eliquis PO Not Given Q12HR [facility] Protocol Aspirin 81 mg 11/09/18 10:00 11/15/18 10:00 Halfprin Ec PO Not Given DAILY [facility] Atorvastatin Calcium 40 mg 11/11/18 22:00 11/14/18 21:44 Lipitor PO 40 mg QHS [facility] Administration Bumetanide 1 mg 11/14/18 18:00 11/15/18 05:13 Bumex PO 1 mg 0600,1800 [facility] Administration Bupropion HCl 150 mg 11/09/18 10:00 11/15/18 10:00 Wellbutrin Sr PO Not Given BID [facility] Cyclobenzaprine HCl 10 mg 11/09/18 08:00 11/14/18 17:36 Flexeril PO 10 mg TID PRN Administration Muscle Spasm Hydrophilic Ointment 1 applic 11/15/18 06:19 Vaseline Lip Therapy TP Q2HR PRN Dry Lips Midazolam HCl 100 mg/ Sodium 100 mls @ 2 mls/hr 11/15/18 07:00 Chloride IV TITR [facility] Protocol 2 MG/HR Phenylephrine HCl 100 mg/ 100 mls @ 3 mls/hr 11/15/18 06:45 11/15/18 08:48 Sodium Chloride IV 100 mcg/min TITR [facility] 6 mls/hr Titration Protocol 50 MCG/MIN Magnesium Oxide 400 mg 11/09/18 10:00 11/15/18 10:00 Mag-Ox PO Not Given QDAY [facility] Metolazone 5 mg 11/21/18 10:00 Zaroxolyn PO Fr [facility] Multi-Ingred Cream/Lotion/Oil/Oint 1 applic 11/15/18 06:19 Artificial Tears Ophth Oint OU Q4HR PRN Dry Eye(s) Ondansetron HCl 4 mg 11/11/18 13:44 11/15/18 04:05 Zofran IV 4 mg Q8H PRN Administration Nausea And Vomiting Pantoprazole Sodium 40 mg 11/13/18 10:00 11/15/18 10:00 Protonix IV 40 mg QDAY [facility] Administration Polyethylene Glycol 17 gm 11/09/18 10:00 Miralax 3350 PO BID PRN Constipation Sertraline HCl 50 mg 11/09/18 10:00 11/15/18 10:00 Zoloft PO Not Given DAILY [facility] Simethicone 80 mg 11/12/18 11:49 11/15/18 04:05 Mylicon PO 80 mg Q6H PRN Administration Gas pain Sucralfate 1 gm 11/12/18 16:30 11/15/18 11:30 Carafate PO Not Given ACHS [facility] Nutrition/Malnutrition Assess - Dietary Evaluation Nutrition/Malnutrition Findings: Nutrition Notes Start: 11/14/18 15:47 Freq: Status: Active Protocol: Document 11/14/18 15:47 RM (Rec: 11/14/18 16:00 RM [id number]) Nutrition Notes Need for Assessment generated from: LOS Initial or Follow up Assessment Current Diagnosis Acute Kidney Injury,Coronary Artery Disease,Heart Failure Other Pertinent Diagnosis Hx CVA Current Diet Cardiac Labs/Tests Reviewed Pertinent Medications Zofran Height 5 ft 7 in Weight 124.2 kg [place] Body Weight (kg) 61.36 BMI 42.8 Subjective/Other Information Screened for LOS. Pt stated that her appetite is poor. Pt was eating a banana at time of visit and stated that it is the first thing she has eaten X 3 days d/t N/V. Pt requested soup for dinner. 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 Noted sign on wall stating 1.5 to 2 liter fluid restriction. Burn Absent Trauma Absent #1 Nutrition Diagnosis Inadequate oral intake Etiology decreased appetite, N/V As Evidenced by Signs and Symptoms pt statement that she has not eaten anything bedsides a banana today X 3 days Is patient on ventilator? No Is Patient Ambulatory and/or Out of Bed No REE-([facility]-confined to bed) 2164.680 Kcal/Kg value to use for calculation 14 Approximate Energy Requirements Using 1739 kcal/Kg Calculation Used for Recommendations Kcal/kg Additional Notes Protein Needs: 93-121g (1-1.3g /kg 93kg adjBW) Fluid Needs: 1 ml/kcal Nutrition Intervention Change Diet Order: Cardiac,GI soft Goal #1 Meet at least 75% of calorie and protein needs via PO and ONS intakes Anticipated Discharge Needs: Cardiac diet Follow-Up By: 11/17/18 Additional Comments Follow for PO intakes, need for ONS
--- NOTE | 2018-11-15 13:32 | Consultation ---
History of Present Illness - Reason for Consult Consult date: 11/15/18 acute renal failure - History of Present Illness patient with h/o CHF was admitted for worsening SOB and volume overload and was started on diuretics, she had cardiac arrest with PEA status post intubation this AM, renal consult was requested for rising Cr Past History Past Medical History: atrial fib, CAD, COPD, heart failure Past Surgical History: PTCA Medications and Allergies Allergies Allergy/AdvReac Type Severity Reaction Status Date / Time lisinopril Allergy Anaphylaxis Verified 02/24/18 09:15 Penicillins Allergy Seizure Verified 02/24/18 09:15 Sulfa (Sulfonamide AdvReac Hives Verified 02/24/18 09:15 Antibiotics) Home Medications Medication Instructions Recorded Confirmed Last Taken Type Aspirin [Adult Aspirin] 81 mg PO DAILY 02/24/18 11/08/18 05/09/18 History Spironolactone [Aldactone] 25 mg PO QDAY 02/24/18 11/08/18 05/09/18 History buPROPion SR [Wellbutrin SR] 150 mg PO BID 02/24/18 11/08/18 05/09/18 History Albuterol Sulfate [Ventolin HFA] 1 puff IH Q6H PRN 30 Days 03/03/18 11/08/18 05/09/18 Rx hfa.[id number].[email or web address] Cyclobenzaprine [Flexeril 10 MG 10 mg PO TID PRN 05/10/18 11/08/18 05/09/18 History TAB] Diphenhydramine HCl [Allergy 25 mg PO DAILY 05/10/18 11/08/18 05/09/18 History Relief] ISOSORBIDE MONOnitrate [Imdur ER] 60 mg PO QDAY 05/10/18 11/08/18 05/09/18 History Sertraline HCl [Zoloft] 50 mg PO DAILY 05/10/18 11/08/18 05/09/18 History hydrALAZINE [Apresoline TAB] 25 mg PO Q8HR 05/10/18 11/08/18 05/09/18 History Apixaban [Eliquis] 5 mg PO Q12HR #60 tablet 07/02/18 11/08/18 Unknown Rx Pantoprazole [Protonix TAB] 40 mg PO QDAY #30 tablet 07/02/18 11/08/18 Unknown Rx Polyethylene Glycol 3350 [Miralax 17 gm PO BID PRN #30 powd.pack 07/02/18 11/08/18 Unknown Rx 3350] Carvedilol [Coreg] 3.125 mg PO BID #60 tablet 09/10/18 11/08/18 Unknown Rx Magnesium Oxide [Mag-Ox] 400 mg PO QDAY #7 tablet 10/04/18 11/08/18 Unknown Rx Potassium Chloride [K-Dur] 20 meq PO QDAY #7 tablet 10/04/18 11/08/18 Unknown Rx Torsemide [Demadex] 40 mg PO BID #60 tablet 10/04/18 11/08/18 Unknown Rx metOLazone [Zaroxolyn] 5 mg PO QDAY #30 tablet 10/04/18 11/08/18 Unknown Rx Active Meds: Active Medications Albuterol (Proventil) 2.5 mg IH Q4HRT PRN PRN Reason: Shortness Of Breath Last Admin: 11/14/18 05:32 Dose: 2.5 mg Documented by: Amiodarone HCl (Cordarone) 200 mg PO BID [facility] Last Admin: 11/15/18 10:00 Dose: Not Given Documented by: Apixaban (Eliquis) 5 mg PO Q12HR [facility]; Protocol Last Admin: 11/15/18 10:00 Dose: Not Given Documented by: Aspirin (Halfprin Ec) 81 mg PO DAILY [facility] Last Admin: 11/15/18 10:00 Dose: Not Given Documented by: Atorvastatin Calcium (Lipitor) 40 mg PO QHS [facility] Last Admin: 11/14/18 21:44 Dose: 40 mg Documented by: Bumetanide (Bumex) 1 mg PO 0600,1800 [facility] Last Admin: 11/15/18 05:13 Dose: 1 mg Documented by: Bupropion HCl (Wellbutrin Sr) 150 mg PO BID [facility] Last Admin: 11/15/18 10:00 Dose: Not Given Documented by: Cyclobenzaprine HCl (Flexeril) 10 mg PO TID PRN PRN Reason: Muscle Spasm Last Admin: 11/14/18 17:36 Dose: 10 mg Documented by: Hydrophilic Ointment (Vaseline Lip Therapy) 1 applic TP Q2HR PRN PRN Reason: Dry Lips Midazolam HCl 100 mg/ Sodium (Chloride) 100 mls @ 2 mls/hr IV TITR [facility]; Protocol Phenylephrine HCl 100 mg/ (Sodium Chloride) 100 mls @ 3 mls/hr IV TITR [facility]; Protocol Last Titration: 11/15/18 08:48 Dose: 100 mcg/min, 6 mls/hr Documented by: Magnesium Oxide (Mag-Ox) 400 mg PO QDAY [facility] Last Admin: 11/15/18 10:00 Dose: Not Given Documented by: Metolazone (Zaroxolyn) 5 mg PO [facility] Multi-Ingred Cream/Lotion/Oil/Oint (Artificial Tears Ophth Oint) 1 applic OU Q4HR PRN PRN Reason: Dry Eye(s) Ondansetron HCl (Zofran) 4 mg IV Q8H PRN PRN Reason: Nausea And Vomiting Last Admin: 11/15/18 04:05 Dose: 4 mg Documented by: Pantoprazole Sodium (Protonix) 40 mg IV QDAY [facility] Last Admin: 11/15/18 10:00 Dose: 40 mg Documented by: Polyethylene Glycol (Miralax 3350) 17 gm PO BID PRN PRN Reason: Constipation Sertraline HCl (Zoloft) 50 mg PO DAILY [facility] Last Admin: 11/15/18 10:00 Dose: Not Given Documented by: Simethicone (Mylicon) 80 mg PO Q6H PRN PRN Reason: Gas pain Last Admin: 11/15/18 04:05 Dose: 80 mg Documented by: Sucralfate (Carafate) 1 gm PO ACHS [facility] Last Admin: 11/15/18 11:30 Dose: Not Given Documented by: Review of Systems ROS unobtainable: due to endotracheal tube Exam - Vital Signs Vital signs: Vital Signs Pulse Resp Pulse Ox 59 L 13 100 11/08/18 05:30 11/08/18 05:30 11/08/18 05:30 - General Appearance General appearance: well-developed, intubated EENT: ATNC, PERRL, mucous membranes moist Neck: Present: neck supple Respiratory: Decreased Breath Sounds Heart: regular, S1S2 Gastrointestinal: Present: normoactive bowel sounds. Absent: tenderness, distended Integumentary: no rash, warm and dry Neurologic: other (intubated) Musculoskeletal: Present: other (trace pitting edema in BLE) Psychiatric: other (intubated) Results - Lab Results 11/08/18 03:09 11/14/18 06:07 Most recent lab results Calcium 8.2 mg/dL (8.4-10.2) L 11/14/18 06:07 Magnesium 1.70 mg/dL (1.7-2.3) 11/10/18 05:47 Assessment and Plan acute renal failure likely ischemic due to cardiac arrest hypoxic respiratory failure on mechanical ventilation Acute on Chronic systolic heart failure with EF of 10-15 % Paroxysmal atrial fibrillation - work up for KERWIN ordered including renal US, UA, urine lytes, protein - will d/c Spironolactone but can cont diuretics for worsening pulm edema - no indication for [employer]FORMAT[employer] SPECIALIST, will monitor closely - renally dose meds - strict I&O - daily weight Preet jaffe MD [phone]
[2018-11-15 19:01] LABS: Basophils % (Auto) 0.3 % (0.0-1.8); Hematocrit 36.2 % (30.3-42.9); Lymphocytes # (Auto) 0.2 K/mm3 (1.2-5.4); Lymphocytes % (Auto) 3.3 % (13.4-35.0); Mean Corpuscular HGB Conc 33 % (30-34); Mean Corpuscular Volume 103 fl (79-97); Monocytes # (Auto) 0.6 K/mm3 (0.0-0.8); Monocytes % (Auto) 9.2 % (0.0-7.3); Platelet Count 290 K/mm3 (140-440); Red Blood Count 3.51 M/mm3 (3.65-5.03); Red Cell Distribution Width 17.4 % (13.2-15.2)
[2018-11-15 19:14] LABS: INR 1.59 (0.87-1.13)
[2018-11-15 19:15] LABS: Partial Thromboplastin Time 28.5 Sec. (24.2-36.6)
[2018-11-15 19:23] LABS: Creatine Kinase MB 5.6 ng/mL (0.0-4.0)
[2018-11-15 19:24] LABS: Albumin 1.8 g/dL (3.9-5); Calcium 8.3 mg/dL (8.4-10.2)
--- NOTE | 2018-11-15 19:36 | Ultrasound Report ---
ULTRASOUND RENAL INDICATION: renal failure. COMPARISON: No relevant prior imaging study available. FINDINGS: RIGHT KIDNEY: Size: 10.3 cm. Echogenicity: Normal. Cortical thickness: Normal. Hydronephrosis: None. Cyst or mass: None. Stones: None. LEFT KIDNEY: Size: 10.3 cm. Echogenicity: Normal. Cortical thickness: Normal. Hydronephrosis: None. Cyst or mass: None. Stones: None. Urinary Bladder: No significant abnormality. Free Fluid: Moderate amount of ascites Additional Findings: Cirrhosis with nodular surface contour. IMPRESSION 1. Cirrhosis with moderate ascites. 2. Negative renal ultrasound. No hydronephrosis.. Signer Name: Alexey Brito MD Signed: 11/15/2018 7:32 PM Workstation Name: [id number]
--- NOTE | 2018-11-15 22:16 | Progress Note ---
Assessment and Plan Acute on Chronic systolic heart failure Suspect non-compliance Multiple HF admission Acute renal failure Ascites Patient had paracentesis in previous admissions Hx of LUE DVT Hx of coronary artery disease cardiac cath 03/2018 revealed patent SVG to LAD, patent SVG to OM, patent SVG to PDA and patent diagonal stent, LVEF 10-15%. Non-specific troponin not consistent with ACS Hx of Ischemic cardiomyopathy ejection fraction 10-15% by echo 08/2018 Presence of single chamber cardiac defibrillator underlying paroxysmal atrial fibrillation previously treated with eliquis for oral anticoagulation therapy. on amiodarone and coreg Tobacco abuse Recommendations: Fluid/sodium restriction. Daily weight. Continue aggressive medical therapy for paroxysmal atrial fibrillation, ischemic cardiomyopathy and chronic systolic heart failure. Subjective Date of service: 11/16/18 Interval history: No acute events. resting comfortably. Objective Vital Signs Temp Pulse Pulse Pulse Resp BP Pulse Ox 11/15/18 20:00 98.6 F 68 18 100 11/15/18 19:29 66 134/60 99 11/15/18 17:00 65 11/15/18 16:53 65 128/34 99 11/15/18 12:37 72 110/52 96 11/15/18 09:00 71 11/15/18 08:50 73 102/74 98 11/15/18 08:00 94.5 F L 71 71 22 100 11/15/18 06:33 113 H 91/53 100 11/15/18 03:21 98.0 F 85 18 107/69 87 11/15/18 01:00 95 H 11/15/18 00:01 98.0 F 80 18 94/60 98 - Physical Examination General: No Apparent Distress HEENT: Positive: PERRL Neck: Positive: neck supple Neuro: Positive: Grossly Intact Abdomen: Positive: Ascites Extremities: Present: edema - Labs and Meds Cardiac Enzymes 11/15/18 11/15/18 Range/Units 18:41 18:41 AST 37 (5-40) units/L CK-MB (CK-2) 5.6 H (0.0-4.0) ng/mL Coagulation 11/15/18 Range/Units 18:41 PT 18.6 H (12.2-14.9) Sec. INR 1.59 H (0.87-1.13) APTT 28.5 (24.2-36.6) Sec. CBC 11/15/18 Range/Units 18:41 WBC 6.9 (4.5-11.0) K/mm3 RBC 3.51 L (3.65-5.03) M/mm3 Hgb 12.0 (10.1-14.3) gm/dl Hct 36.2 (30.3-42.9) % Plt Count 290 (140-440) K/mm3 Lymph # 0.2 L (1.2-5.4) K/mm3 [place] # 0.6 (0.0-0.8) K/mm3 Eos # 0.0 (0.0-0.4) K/mm3 Baso # 0.0 (0.0-0.1) K/mm3 Comprehensive Metabolic Panel 11/15/18 Range/Units 18:41 Sodium 136 L (137-145) mmol/L Potassium 3.9 (3.6-5.0) mmol/L Chloride 95.3 L (98-107) mmol/L Carbon Dioxide 28 (22-30) mmol/L BUN 46 H (7-17) mg/dL Creatinine 2.3 H (0.7-1.2) mg/dL Glucose 86 (65-100) mg/dL Calcium 8.3 L (8.4-10.2) mg/dL AST 37 (5-40) units/L ALT 15 (7-56) units/L Alkaline Phosphatase 78 (35-129) units/L Total Protein 4.6 L (6.3-8.2) g/dL Albumin 1.8 L (3.9-5) g/dL
--- NOTE | 2018-11-16 02:50 | XRay Report ---
CHEST 1 VIEW INDICATION / CLINICAL INFORMATION: follow up respiratory failure. COMPARISON: 11/15/2018 FINDINGS: SUPPORT DEVICES: Endotracheal tube remains in place as well as PICC line and ICD. HEART / MEDIASTINUM: Relatively severe cardiomegaly is stable. LUNGS / PLEURA: Mild venous congestion and interstitial edema shows slight improvement. No effusions are seen. No pneumothorax. ADDITIONAL FINDINGS: No significant additional findings. IMPRESSION: 1. Slight interval improvement Signer Name: Rikki Landers MD Signed: 11/16/2018 2:45 AM Workstation Name: [id number]
[2018-11-16 05:55] LABS: Basophils % (Auto) 0.2 % (0.0-1.8); Eosinophils % (Auto) 0.1 % (0.0-4.3); Hematocrit 35.4 % (30.3-42.9); Hemoglobin 11.8 gm/dl (10.1-14.3); Lymphocytes # (Auto) 0.2 K/mm3 (1.2-5.4); Lymphocytes % (Auto) 2.5 % (13.4-35.0); Mean Corpuscular HGB Conc 33 % (30-34); Mean Corpuscular Volume 103 fl (79-97); Monocytes # (Auto) 0.8 K/mm3 (0.0-0.8); Monocytes % (Auto) 9.3 % (0.0-7.3); Platelet Count 278 K/mm3 (140-440); Red Blood Count 3.44 M/mm3 (3.65-5.03); Red Cell Distribution Width 17.3 % (13.2-15.2)
[2018-11-16] MEDS: BUMEX PO SCH ×2 (06:12→17:29)
[2018-11-16 06:21] LABS: Calcium 8.1 mg/dL (8.4-10.2)
[2018-11-16] MEDS: CARAFATE PO SCH ×4 (07:30→22:41)
[2018-11-16] MEDS: ZOLOFT PO SCH (10:00)
[2018-11-16] MEDS: MAG-OX PO SCH (10:00)
[2018-11-16] MEDS: PROTONIX IV SCH (10:00)
[2018-11-16] MEDS: CORDARONE PO SCH ×2 (10:00→22:41)
[2018-11-16] MEDS: ELIQUIS PO SCH ×2 (10:00→22:41)
[2018-11-16] MEDS: HALFPRIN EC PO SCH (10:00)
[2018-11-16] MEDS: WELLBUTRIN SR PO SCH ×2 (10:00→22:41)
[2018-11-16 10:04] LABS: Bacteria,Urine 2+ /HPF (Negative); Bilirubin,Urine NEG (Negative); Blood,Urine NEG (Negative); Color,Urine Yellow (Yellow); Mucus,Urine FEW /HPF; Protein,Urine <15 mg/dL mg/dL (Negative); Urobilinogen,Urine < 2.0 mg/dL (<2.0)
--- NOTE | 2018-11-16 10:28 | Progress Note ---
Assessment and Plan 68 y/o female with known systolic heart failure, admitted post cardiac arrest, intubated, awake and alert. 1. Extubate today 2. Keep in ICU until tomorrow given recent arrest 3. Bedside swallow eval 4. Follow up cards and renal recs. CCT 31 minutes. Subjective Date of service: 11/16/18 Principal diagnosis: Chest pain for 3 days Interval history: No acute events. Unable to extubate on yesterday as she received sedation for picc placement. Awake and alert this am. Follows commands. currently on PSV trial now. No family at bedside. Trop came back yesterday at 2.83 Objective Vital Signs - 12hr 11/15/18 11/15/18 11/16/18 23:17 23:39 00:00 Temperature 98.4 F Pulse Rate 66 Pulse Rate [ 67 From Monitor] Respiratory 16 Rate Blood Pressure 131/47 O2 Sat by Pulse 100 100 Oximetry 11/16/18 11/16/18 11/16/18 00:11 03:30 03:53 Temperature 97.8 F Pulse Rate 67 71 Pulse Rate [ From Monitor] Respiratory Rate Blood Pressure 96/47 O2 Sat by Pulse 100 Oximetry 11/16/18 11/16/18 04:00 07:21 Temperature Pulse Rate 82 72 Pulse Rate [ 82 From Monitor] Respiratory 16 Rate Blood Pressure 133/77 O2 Sat by Pulse 100 98 Oximetry Constitutional: no acute distress, alert, appears uncomfortable, other (obese) Eyes: non-icteric ENT: other (orally intubated, not sedated) Neck: supple Effort: normal Ascultation: Bilateral: clear Percussion: Bilateral: not dull Cardiovascular: regular rate and rhythm Gastrointestinal: soft CBC and BMP: 11/16/18 05:35 11/16/18 05:35 ABG, PT/INR, D-dimer: ABG POC ABG pH 7.507 (7.35-7.45) H 11/16/18 03:53 POC ABG pCO2 34.9 (35-45) L 11/16/18 03:53 POC ABG pO2 133 (80-105) H 11/16/18 03:53 POC ABG HCO3 27.6 (22-26 mml/L) 11/16/18 03:53 POC ABG Total CO2 29 (23-27mmol/L) 11/16/18 03:53 POC ABG O2 Sat 99 11/16/18 03:53 PT/INR, D-dimer PT 18.6 Sec. (12.2-14.9) H 11/15/18 18:41 INR 1.59 (0.87-1.13) H 11/15/18 18:41 Abnormal lab findings: Abnormal Labs 11/08/18 11/08/18 11/08/18 03:09 03:09 05:50 RBC 3.37 L MCV 106 H MCH 34 H RDW 17.1 H Lymph % (Auto) 4.6 L [place] % (Auto) 11.5 H Lymph # 0.2 L Seg Neutrophils % 83.0 H PT INR POC ABG pH POC ABG pCO2 POC ABG pO2 Sodium 135 L Chloride Carbon Dioxide BUN 29 H Creatinine 1.4 H Glucose POC Glucose Calcium 8.1 L Phosphorus Total Creatine Kinase CK-MB (CK-2) Troponin T 0.042 H 0.039 H Total Protein Albumin LDL Cholesterol Direct 137 H HDL Cholesterol 33 L Lipase 11/10/18 11/10/18 11/10/18 05:47 07:32 13:08 RBC MCV MCH RDW Lymph % (Auto) [place] % (Auto) Lymph # Seg Neutrophils % PT INR POC ABG pH POC ABG pCO2 POC ABG pO2 Sodium Chloride Carbon Dioxide 32 H BUN 25 H Creatinine Glucose 104 H POC Glucose 115 H 142 H Calcium 7.9 L Phosphorus Total Creatine Kinase CK-MB (CK-2) Troponin T Total Protein Albumin LDL Cholesterol Direct HDL Cholesterol Lipase 11/10/18 11/10/18 11/11/18 16:55 21:21 07:51 RBC MCV MCH RDW Lymph % (Auto) [place] % (Auto) Lymph # Seg Neutrophils % PT INR POC ABG pH POC ABG pCO2 POC ABG pO2 Sodium Chloride Carbon Dioxide BUN Creatinine Glucose POC Glucose 125 H 126 H 118 H Calcium Phosphorus Total Creatine Kinase CK-MB (CK-2) Troponin T Total Protein Albumin LDL Cholesterol Direct HDL Cholesterol Lipase 11/11/18 11/11/18 11/12/18 12:25 21:32 07:46 RBC MCV MCH RDW Lymph % (Auto) [place] % (Auto) Lymph # Seg Neutrophils % PT INR POC ABG pH POC ABG pCO2 POC ABG pO2 Sodium Chloride 97.7 L Carbon Dioxide BUN 28 H Creatinine Glucose POC Glucose 125 H 126 H Calcium 8.0 L Phosphorus Total Creatine Kinase CK-MB (CK-2) Troponin T Total Protein Albumin LDL Cholesterol Direct HDL Cholesterol Lipase 11/12/18 11/12/18 11/13/18 08:57 11:35 05:38 RBC MCV MCH RDW Lymph % (Auto) [place] % (Auto) Lymph # Seg Neutrophils % PT INR POC ABG pH POC ABG pCO2 POC ABG pO2 Sodium Chloride 97.3 L Carbon Dioxide 31 H BUN 33 H Creatinine 1.5 H Glucose 111 H POC Glucose 120 H 137 H Calcium 7.8 L Phosphorus Total Creatine Kinase CK-MB (CK-2) Troponin T Total Protein Albumin LDL Cholesterol Direct HDL Cholesterol Lipase 11/13/18 11/14/18 11/15/18 05:38 06:07 06:11 RBC MCV MCH RDW Lymph % (Auto) [place] % (Auto) Lymph # Seg Neutrophils % PT INR POC ABG pH POC ABG pCO2 POC ABG pO2 Sodium 135 L Chloride 96.8 L Carbon Dioxide BUN 36 H Creatinine 1.9 H Glucose 117 H POC Glucose 128 H Calcium 8.2 L Phosphorus Total Creatine Kinase CK-MB (CK-2) Troponin T Total Protein Albumin LDL Cholesterol Direct HDL Cholesterol Lipase 11 L 11/15/18 11/15/18 11/15/18 08:50 18:41 18:41 RBC 3.51 L MCV 103 H MCH 34 H RDW 17.4 H Lymph % (Auto) 3.3 L [place] % (Auto) 9.2 H Lymph # 0.2 L Seg Neutrophils % 87.2 H PT INR POC ABG pH 7.533 H POC ABG pCO2 33.9 L POC ABG pO2 237 H Sodium 136 L Chloride 95.3 L Carbon Dioxide BUN 46 H Creatinine 2.3 H Glucose POC Glucose Calcium 8.3 L Phosphorus Total Creatine Kinase CK-MB (CK-2) Troponin T Total Protein 4.6 L Albumin 1.8 L LDL Cholesterol Direct HDL Cholesterol Lipase 11/15/18 11/15/18 11/16/18 18:41 18:41 03:53 RBC MCV MCH RDW Lymph % (Auto) [place] % (Auto) Lymph # Seg Neutrophils % PT 18.6 H INR 1.59 H POC ABG pH 7.507 H POC ABG pCO2 34.9 L POC ABG pO2 133 H Sodium Chloride Carbon Dioxide BUN Creatinine Glucose POC Glucose Calcium Phosphorus Total Creatine Kinase 293 H CK-MB (CK-2) 5.6 H Troponin T 2.830 H* Total Protein Albumin LDL Cholesterol Direct HDL Cholesterol Lipase 11/16/18 11/16/18 05:35 05:35 RBC 3.44 L MCV 103 H MCH 34 H RDW 17.3 H Lymph % (Auto) 2.5 L [place] % (Auto) 9.3 H Lymph # 0.2 L Seg Neutrophils % 87.9 H PT INR POC ABG pH POC ABG pCO2 POC ABG pO2 Sodium 135 L Chloride 95.9 L Carbon Dioxide BUN 47 H Creatinine 2.2 H Glucose POC Glucose Calcium 8.1 L Phosphorus 4.60 H Total Creatine Kinase CK-MB (CK-2) Troponin T Total Protein Albumin LDL Cholesterol Direct HDL Cholesterol Lipase
--- NOTE | 2018-11-16 11:11 | Progress Note ---
Assessment and Plan Assessment and plan: Patient is a 68 year old -[place] female who was initially admitted for acute on chronic systolic heart failure. She was managed with IV milrinone drip and IV bumex by cardiology. The drip was discontinued on 11/13 while the IV Bumex was changed to oral on 11/14. Early this morning, she coded and was successfully resuscitated and transferred to the ICU S/p PEA cardiac arrest -Successfully resuscitated -Cardiology to follow-up Acute on chronic respiratory failure with hypoxia -Status post intubation on mechanical ventilator -Pulmonology consulted Shock -Probably cardiogenic -On IV pressor, monitor blood pressure Acute on Chronic systolic heart failure with EF of 10-15 % -Suspect to be due to non-compliance bs of multiple HF admission -Status post single chamber cardiac defibrillator placement. -On oral bumex, BB and aldactone. Off Milrinone drip. Not on ACEI due to allergy -Repeat chest x-ray today showed developing pulmonary edema -Last echo was in 08/2018 -Mgx by Cardiology Paroxysmal atrial fibrillation -On oral amiodarone and Coreg -Rate currently controlled -On oral anticoagulation with eliquis Hx of LUE DVT -cont oral anticoagulation with eliquis Hx of coronary artery disease -cardiac cath 03/2018 revealed patent SVG to LAD, patent SVG to OM, patent SVG to PDA and patent diagonal stent, LVEF 10-15%. -Continue medical management Elevated troponin on admission -Likely demand ischemia due to the acute process -Level trended down Generalized abdominal pain with nausea/vomiting -Abdominal series negative for acute findings. Lipase neg -Probably due to GERD/gastritis -Continue PPI, anti-emetics and sucralfate KERWIN, likely vasomotor nephropathy/diuretic use -Cr level trended up, will monitor COPD -No acute exacerbation -On neb tx HLD -On statin H/o HTN -Currently hypotensive on IV pressor Tobacco abuse -Patient counseled on cessation Morbid obesity with BMI of 42.9 -Lifestyle modification recommended Disposition: Patient's condition is guarded and overall prognosis is poor. Continue treatment in the ICU Time spent: 38 minutes History Interval history: Patient intubated but awake, basic commands No fever, no seizures, vomiting, and agitation no Obvious discomfort Hospitalist Physical - Physical exam Narrative exam: General appearance: Present: no acute distress, obese, other (intubate, but awake) - EENT Eyes: Present: PERRL, EOM intact ENT: hearing intact, clear oral mucosa - Neck Neck: Present: supple - Respiratory Respiratory effort: normal Respiratory: bilateral: rales - Cardiovascular Rhythm: regular Heart Sounds: Present: S1 & S2 - Extremities Extremity abnormal: edema (in BLE) - Abdominal General gastrointestinal: soft, tender (Mild and generalized), normal bowel sounds - Integumentary Integumentary: Present: clear, warm, dry - Neurologic Neurologic: moves all extremities - Constitutional Vitals: Temp Pulse Resp BP Pulse Ox 98.6 F 72 16 133/77 98 11/16/18 08:00 11/16/18 07:21 11/16/18 04:00 11/16/18 07:21 11/16/18 07:21 General appearance: Present: no acute distress, obese, other (intubate, but awake) Results - Labs CBC & Chem 7: 11/22/18 05:35 11/23/18 04:22 Labs: Laboratory Last Values WBC 8.8 K/mm3 (4.5-11.0) 11/16/18 05:35 RBC 3.44 M/mm3 (3.65-5.03) L 11/16/18 05:35 Hgb 11.8 gm/dl (10.1-14.3) 11/16/18 05:35 Hct 35.4 % (30.3-42.9) 11/16/18 05:35 MCV 103 fl (79-97) H 11/16/18 05:35 MCH 34 pg (28-32) H 11/16/18 05:35 MCHC 33 % (30-34) 11/16/18 05:35 RDW 17.3 % (13.2-15.2) H 11/16/18 05:35 Plt Count 278 K/mm3 (140-440) 11/16/18 05:35 Lymph % (Auto) 2.5 % (13.4-35.0) L 11/16/18 05:35 [place] % (Auto) 9.3 % (0.0-7.3) H 11/16/18 05:35 Eos % (Auto) 0.1 % (0.0-4.3) 11/16/18 05:35 Baso % (Auto) 0.2 % (0.0-1.8) 11/16/18 05:35 Lymph # 0.2 K/mm3 (1.2-5.4) L 11/16/18 05:35 [place] # 0.8 K/mm3 (0.0-0.8) 11/16/18 05:35 Eos # 0.0 K/mm3 (0.0-0.4) 11/16/18 05:35 Baso # 0.0 K/mm3 (0.0-0.1) 11/16/18 05:35 Seg Neutrophils % 87.9 % (40.0-70.0) H 11/16/18 05:35 Seg Neutrophils # 7.7 K/mm3 (1.8-7.7) 11/16/18 05:35 PT 18.6 Sec. (12.2-14.9) H 11/15/18 18:41 INR 1.59 (0.87-1.13) H 11/15/18 18:41 APTT 28.5 Sec. (24.2-36.6) 11/15/18 18:41 POC ABG pH 7.507 (7.35-7.45) H 11/16/18 03:53 POC ABG pCO2 34.9 (35-45) L 11/16/18 03:53 POC ABG pO2 133 (80-105) H 11/16/18 03:53 POC ABG HCO3 27.6 (22-26 mml/L) 11/16/18 03:53 POC ABG Total CO2 29 (23-27mmol/L) 11/16/18 03:53 POC ABG O2 Sat 99 11/16/18 03:53 POC ABG Base Excess 5 ((-2) - (+3)mmol/L) 11/16/18 03:53 40 % 11/16/18 03:53 Sodium 135 mmol/L (137-145) L 11/16/18 05:35 Potassium 3.7 mmol/L (3.6-5.0) 11/16/18 05:35 Chloride 95.9 mmol/L (98-107) L 11/16/18 05:35 Carbon Dioxide 26 mmol/L (22-30) 11/16/18 05:35 17 mmol/L 11/16/18 05:35 BUN 47 mg/dL (7-17) H 11/16/18 05:35 2.2 mg/dL (0.7-1.2) H 11/16/18 05:35 Estimated GFR 27 ml/min 11/16/18 05:35 21 % 11/16/18 05:35 Glucose 75 mg/dL (65-100) 11/16/18 05:35 POC Glucose 75 (70-105) 11/16/18 09:18 Calcium 8.1 mg/dL (8.4-10.2) L 11/16/18 05:35 Phosphorus 4.60 mg/dL (2.5-4.5) H 11/16/18 05:35 Magnesium 1.70 mg/dL (1.7-2.3) 11/10/18 05:47 0.50 mg/dL (0.1-1.2) 11/15/18 18:41 AST 37 units/L (5-40) 11/15/18 18:41 ALT 15 units/L (7-56) 11/15/18 18:41 78 units/L (35-129) 11/15/18 18:41 293 units/L (30-135) H 11/15/18 18:41 CK-MB (CK-2) 5.6 ng/mL (0.0-4.0) H 11/15/18 18:41 CK-MB (CK-2) Rel Index 1.9 (0-4) 11/15/18 18:41 2.830 ng/mL (0.00-0.029) H* 11/15/18 18:41 4.6 g/dL (6.3-8.2) L 11/15/18 18:41 1.8 g/dL (3.9-5) L 11/15/18 18:41 0.6 % 11/15/18 18:41 Triglycerides 107 mg/dL (2-149) 11/08/18 03:09 Cholesterol 176 mg/dL (50-199) 11/08/18 03:09 137 mg/dL (50-130) H 11/08/18 03:09 33 mg/dL (40-59) L 11/08/18 03:09 5.33 % 11/08/18 03:09 11 units/L (13-60) L 11/13/18 05:38 Yellow (Yellow) 11/16/18 09:26 Slightly-cloudy (Clear) 11/16/18 09:26 7.0 (5.0-7.0) 11/16/18 09:26 Ur Specific [place] 1.014 (1.003-1.030) 11/16/18 09:26 <15 mg/dl mg/dL (Negative) 11/16/18 09:26 Neg mg/dL (Negative) 11/16/18 09:26 Tr mg/dL (Negative) 11/16/18 09:26 Neg (Negative) 11/16/18 09:26 Neg (Negative) 11/16/18 09:26 Neg (Negative) 11/16/18 09:26 < 2.0 mg/dL (<2.0) 11/16/18 09:26 Ur Leukocyte Esterase Neg (Negative) 11/16/18 09:26 2.0 /HPF (0.0-6.0) 11/16/18 09:26 1.0 /HPF (0.0-6.0) 11/16/18 09:26 U Epithel Cells (Auto) < 1.0 /HPF (0-13.0) 11/16/18 09:26 2+ /HPF (Negative) 11/16/18 09:26 Few /HPF 11/16/18 09:26 Active Medications - Current Medications Current Medications: Generic Name Dose Route Start Last Admin Trade Name Freq PRN Reason Stop Dose Admin Albuterol 2.5 mg 11/09/18 08:00 11/14/18 05:32 Proventil IH 2.5 mg Q4HRT PRN Administration Shortness Of Breath Amiodarone HCl 200 mg 11/10/18 22:00 11/15/18 21:19 Cordarone PO Not Given BID [facility] Apixaban 5 mg 11/09/18 10:00 11/15/18 21:19 Eliquis PO Not Given Q12HR [facility] Protocol Aspirin 81 mg 11/09/18 10:00 11/15/18 10:00 Halfprin Ec PO Not Given DAILY [facility] Atorvastatin Calcium 40 mg 11/11/18 22:00 11/15/18 21:19 Lipitor PO Not Given QHS [facility] Bumetanide 1 mg 11/14/18 18:00 11/16/18 06:12 Bumex PO Not Given 0600,1800 [facility] Bupropion HCl 150 mg 11/09/18 10:00 11/15/18 21:19 Wellbutrin Sr PO Not Given BID [facility] Cyclobenzaprine HCl 10 mg 11/09/18 08:00 11/14/18 17:36 Flexeril PO 10 mg TID PRN Administration Muscle Spasm Hydrophilic Ointment 1 applic 11/15/18 06:19 Vaseline Lip Therapy TP Q2HR PRN Dry Lips Midazolam HCl 100 mg/ Sodium 100 mls @ 2 mls/hr 11/15/18 07:00 Chloride IV TITR [facility] Protocol 2 MG/HR Phenylephrine HCl 100 mg/ 100 mls @ 3 mls/hr 11/15/18 06:45 11/15/18 19:00 Sodium Chloride IV 90 mcg/min TITR [facility] 5.4 mls/hr Administration Protocol 50 MCG/MIN Magnesium Oxide 400 mg 11/09/18 10:00 11/15/18 10:00 Mag-Ox PO Not Given QDAY [facility] Metolazone 5 mg 11/21/18 10:00 Zaroxolyn PO Fr [facility] Multi-Ingred Cream/Lotion/Oil/Oint 1 applic 11/15/18 06:19 Artificial Tears Ophth Oint OU Q4HR PRN Dry Eye(s) Ondansetron HCl 4 mg 11/11/18 13:44 11/15/18 04:05 Zofran IV 4 mg Q8H PRN Administration Nausea And Vomiting Pantoprazole Sodium 40 mg 11/13/18 10:00 11/15/18 10:00 Protonix IV 40 mg QDAY [facility] Administration Polyethylene Glycol 17 gm 11/09/18 10:00 Miralax 3350 PO BID PRN Constipation Sertraline HCl 50 mg 11/09/18 10:00 11/15/18 10:00 Zoloft PO Not Given DAILY [facility] Simethicone 80 mg 11/12/18 11:49 11/15/18 04:05 Mylicon PO 80 mg Q6H PRN Administration Gas pain Sucralfate 1 gm 11/12/18 16:30 11/15/18 21:19 Carafate PO Not Given ACHS [facility] Nutrition/Malnutrition Assess - Dietary Evaluation Nutrition/Malnutrition Findings: Nutrition Notes Start: 11/14/18 15:47 Freq: Status: Active Protocol: Document 11/15/18 15:23 RM (Rec: 11/15/18 15:29 RM [id number]) Nutrition Notes Initial or Follow up Reassessment Current Diagnosis Acute Kidney Injury,Coronary Artery Disease,Heart Failure Other Pertinent Diagnosis Hx CVA Current Diet NPO Labs/Tests Reviewed Pertinent Medications Zofran Height 5 ft 7 in Weight 124.2 kg [place] Body Weight (kg) 61.36 BMI 42.8 Subjective/Other Information Consulted for evaluate nutritional intake. Pt coded and moved to ICU. Pt on vent. Burn Absent Trauma Absent #1 Nutrition Diagnosis Inadequate oral intake Diagnosis Progress(for reassessment Continues documentation) Is patient on ventilator? Yes Is Patient Ambulatory and/or Out of Bed No REE-([facility]-confined to bed) 2164.680 Kcal/Kg value to use for calculation 14 Approximate Energy Requirements Using 1739 kcal/Kg Calculation Used for Recommendations Kcal/kg Additional Notes Protein Needs: 153g (2.5g/kg IBW) Fluid Needs: 1 ml/kcal Nutrition Intervention Change Diet Order: TF consult Nutrition Support: Vital 1.2 at 60 ml/hr Water flush of 100 mls q 4 hrs Kcal 1,728 Carbohydrates (gm) 108 Fluid (mL) 1,168 Goal #1 TF consult Anticipated Discharge Needs: Unable to determine at this time Follow-Up By: 11/17/18 Additional Comments Follow for TF consult
[2018-11-16 11:52] LABS: Creatinine,Urine 102.6 mg/dL (0.1-20.0); Protein/Creatinine Ratio,Urine 0.27
[2018-11-16] MEDS: NEO-SYNEPHRINE 100 MG in NACL 0.9% 90 ML IV SCH (12:25)
--- NOTE | 2018-11-16 12:58 | Progress Note ---
Assessment and Plan acute renal failure likely ischemic due to cardiac arrest hypoxic respiratory failure on mechanical ventilation Acute on Chronic systolic heart failure with EF of 10-15 % Paroxysmal atrial fibrillation - stable Cr, UOP ~ 400 last 24 hours - no proteinruia, renal US negative for obstruction - no indication for DIANETIC COUNSELOR, will monitor closely - renally dose meds - strict I&O - daily weight Preet jaffe MD [phone] Subjective Date of service: 11/16/18 Principal diagnosis: Chest pain for 3 days Interval history: more awake today, follows simple commands Objective - Vital Signs Vital signs: Vital Signs - 12hr 11/16/18 11/16/18 11/16/18 03:30 03:53 04:00 Temperature 97.8 F Pulse Rate 71 82 Pulse Rate [ 82 From Monitor] Respiratory 16 Rate Blood Pressure 96/47 O2 Sat by Pulse 100 100 Oximetry 11/16/18 11/16/18 07:21 08:00 Temperature 98.6 F Pulse Rate 72 89 Pulse Rate [ 89 From Monitor] Respiratory 17 Rate Blood Pressure 133/77 O2 Sat by Pulse 98 100 Oximetry - General Appearance General appearance: well-developed, well-nourished, intubated EENT: ATNC, PERRL, mucous membranes dry Neck: no JVD, no carotid bruit Respiratory: Present: Clear to Ascultation. Absent: Rales, Ronchi Cardiology: regular, S1S2 Gastrointestinal: normoactive bowel sounds, no distended, no masses, obese Integumentary: no rash, warm and dry Neurologic: other (follows simple commands) Musculoskeletal: other (no edema in BLE) Psychiatric: other (intubated ) - Lab 11/16/18 05:35 11/16/18 05:35 Most recent lab results Calcium 8.1 mg/dL (8.4-10.2) L 11/16/18 05:35 Phosphorus 4.60 mg/dL (2.5-4.5) H 11/16/18 05:35 Magnesium 1.70 mg/dL (1.7-2.3) 11/10/18 05:47 102.6 mg/dL (0.1-20.0) H 11/16/18 09:26 103.3 mg/dL (0.1-20.0) H 11/16/18 09:26 28 mg/dL (5-11.8) H 11/16/18 09:26 Medications & Allergies - Medications Allergies/Adverse Reactions: Allergies lisinopril Allergy (Verified 02/24/18 09:15) Anaphylaxis Penicillins Allergy (Verified 02/24/18 09:15) Seizure Sulfa (Sulfonamide Antibiotics) Adverse Reaction (Verified 02/24/18 09:15) Hives Home Medications: Home Medications Medication Instructions Recorded Confirmed Last Taken Type Aspirin [Adult Aspirin] 81 mg PO DAILY 02/24/18 11/08/18 05/09/18 History Spironolactone [Aldactone] 25 mg PO QDAY 02/24/18 11/08/18 05/09/18 History buPROPion SR [Wellbutrin SR] 150 mg PO BID 02/24/18 11/08/18 05/09/18 History Albuterol Sulfate [Ventolin HFA] 1 puff IH Q6H PRN 30 Days 03/03/18 11/08/18 05/09/18 Rx [email or web address] Cyclobenzaprine [Flexeril 10 MG 10 mg PO TID PRN 05/10/18 11/08/18 05/09/18 History TAB] Diphenhydramine HCl [Allergy 25 mg PO DAILY 05/10/18 11/08/18 05/09/18 History Relief] ISOSORBIDE MONOnitrate [Imdur ER] 60 mg PO QDAY 05/10/18 11/08/18 05/09/18 History Sertraline HCl [Zoloft] 50 mg PO DAILY 05/10/18 11/08/18 05/09/18 History hydrALAZINE [Apresoline TAB] 25 mg PO Q8HR 05/10/18 11/08/18 05/09/18 History Apixaban [Eliquis] 5 mg PO Q12HR #60 tablet 07/02/18 11/08/18 Unknown Rx Pantoprazole [Protonix TAB] 40 mg PO QDAY #30 tablet 07/02/18 11/08/18 Unknown Rx Polyethylene Glycol 3350 [Miralax 17 gm PO BID PRN #30 powd.pack 07/02/18 11/08/18 Unknown Rx 3350] Carvedilol [Coreg] 3.125 mg PO BID #60 tablet 09/10/18 11/08/18 Unknown Rx Magnesium Oxide [Mag-Ox] 400 mg PO QDAY #7 tablet 10/04/18 11/08/18 Unknown Rx Potassium Chloride [K-Dur] 20 meq PO QDAY #7 tablet 10/04/18 11/08/18 Unknown Rx Torsemide [Demadex] 40 mg PO BID #60 tablet 10/04/18 11/08/18 Unknown Rx metOLazone [Zaroxolyn] 5 mg PO QDAY #30 tablet 10/04/18 11/08/18 Unknown Rx Active Medications: Generic Name Dose Route Start Last Admin Trade Name Freq PRN Reason Stop Dose Admin Albuterol 2.5 mg 11/09/18 08:00 11/14/18 05:32 Proventil IH 2.5 mg Q4HRT PRN Administration Shortness Of Breath Amiodarone HCl 200 mg 11/10/18 22:00 11/16/18 10:00 Cordarone PO Not Given BID [facility] Apixaban 5 mg 11/09/18 10:00 11/16/18 10:00 Eliquis PO Not Given Q12HR [facility] Protocol Aspirin 81 mg 11/09/18 10:00 11/16/18 10:00 Halfprin Ec PO Not Given DAILY [facility] Atorvastatin Calcium 40 mg 11/11/18 22:00 11/15/18 21:19 Lipitor PO Not Given QHS [facility] Bumetanide 1 mg 11/14/18 18:00 11/16/18 06:12 Bumex PO Not Given 0600,1800 [facility] Bupropion HCl 150 mg 11/09/18 10:00 11/16/18 10:00 Wellbutrin Sr PO Not Given BID [facility] Cyclobenzaprine HCl 10 mg 11/09/18 08:00 11/14/18 17:36 Flexeril PO 10 mg TID PRN Administration Muscle Spasm Hydrophilic Ointment 1 applic 11/15/18 06:19 Vaseline Lip Therapy TP Q2HR PRN Dry Lips Midazolam HCl 100 mg/ Sodium 100 mls @ 2 mls/hr 11/15/18 07:00 Chloride IV TITR [facility] Protocol 2 MG/HR Phenylephrine HCl 100 mg/ 100 mls @ 3 mls/hr 11/15/18 06:45 11/16/18 12:25 Sodium Chloride IV 50 mcg/min TITR RAD[facility] 3 mls/hr Administration Protocol 50 MCG/MIN Magnesium Oxide 400 mg 11/09/18 10:00 11/16/18 10:00 Mag-Ox PO Not Given QDAY [facility] Metolazone 5 mg 11/21/18 10:00 Zaroxolyn PO Fr [facility] Multi-Ingred Cream/Lotion/Oil/Oint 1 applic 11/15/18 06:19 Artificial Tears Ophth Oint OU Q4HR PRN Dry Eye(s) Ondansetron HCl 4 mg 11/11/18 13:44 11/15/18 04:05 Zofran IV 4 mg Q8H PRN Administration Nausea And Vomiting Pantoprazole Sodium 40 mg 11/13/18 10:00 11/16/18 10:00 Protonix IV 40 mg QDAY [facility] Administration Polyethylene Glycol 17 gm 11/09/18 10:00 Miralax 3350 PO BID PRN Constipation Sertraline HCl 50 mg 11/09/18 10:00 11/16/18 10:00 Zoloft PO Not Given DAILY [facility] Simethicone 80 mg 11/12/18 11:49 11/15/18 04:05 Mylicon PO 80 mg Q6H PRN Administration Gas pain Sucralfate 1 gm 11/12/18 16:30 11/16/18 11:30 Carafate PO Not Given ACHS [facility]
[2018-11-16] MEDS: ZOFRAN IV PRN (23:44)
[2018-11-17 06:29] LABS: Hemolysis Index 781
[2018-11-17 06:33] LABS: Blood Urea Nitrogen TNR mg/dL (7-17)
[2018-11-17 06:34] LABS: BUN/Creatinine Ratio TNR; Calcium TNR mg/dL (8.4-10.2)
[2018-11-17] MEDS: BUMEX PO SCH ×2 (06:55→19:22)
--- NOTE | 2018-11-17 07:44 | Progress Note ---
Assessment and Plan Assessment and plan: Patient is a 68 year old -[place] female who was initially admitted for acute on chronic systolic heart failure. She was managed with IV milrinone drip and IV bumex by cardiology. The drip was discontinued on 11/13 while the IV Bumex was changed to oral on 11/14. Early this morning, she coded and was successfully resuscitated and transferred to the ICU S/p PEA cardiac arrest -Successfully resuscitated -Cardiology to follow-up Acute on chronic respiratory failure with hypoxia on MV > 96 hours extubated on 11/16, care per pulmonology cardiogenic Shock -Probably cardiogenic -off IV pressor, since 11/16, improved Acute on Chronic systolic heart failure with EF of 10-15 % -Suspect to be due to non-compliance bs of multiple HF admission -Status post single chamber cardiac defibrillator placement. -On oral bumex, BB and aldactone. Off Milrinone drip since 11/12. Not on ACEI due to allergy -Last echo was in 08/2018 -Mgx by Cardiology Paroxysmal atrial fibrillation -On oral amiodarone and Coreg -Rate currently controlled -On oral anticoagulation with eliquis Hx of LUE DVT -cont oral anticoagulation with eliquis Hx of coronary artery disease -cardiac cath 03/2018 revealed patent SVG to LAD, patent SVG to OM, patent SVG to PDA and patent diagonal stent, LVEF 10-15%. -Continue medical management Elevated troponin on admission type 2 OR, mgt per cardiology Generalized abdominal pain with nausea/vomiting -Abdominal series negative for acute findings. Lipase neg -Probably due to GERD/gastritis -Continue PPI, anti-emetics and sucralfate KERWIN, likely vasomotor nephropathy/diuretic use cr now stabilizing, nephrology following, judicious use of diuretics COPD, chronic and stable Tobacco abuse -Patient counseled on cessation > 11 minutes Morbid obesity with BMI of 42.9 -Lifestyle modification recommended -preventative health counseling >17 minutes History Interval history: Patient is sedated, complaining of generalized weakness, No fever, no seizure, no vomiting Hospitalist Physical - Physical exam Narrative exam: General appearance: Present: no acute distress, obese, o - EENT Eyes: Present: PERRL, EOM intact ENT: hearing intact, clear oral mucosa - Neck Neck: Present: supple - Respiratory Respiratory effort: normal Respiratory: bilateral: rales - Cardiovascular Rhythm: regular Heart Sounds: Present: S1 & S2 - Extremities Extremity abnormal: edema (in BLE) - Abdominal General gastrointestinal: soft, tender (Mild and generalized), normal bowel sounds - Integumentary Integumentary: Present: clear, warm, dry - Neurologic Neurologic: moves all extremities - Constitutional Vitals: Temp Pulse Resp BP Pulse Ox 97.3 F L 86 24 110/72 100 11/17/18 05:22 11/17/18 06:00 11/17/18 05:22 11/17/18 05:22 11/17/18 05:22 General appearance: Present: no acute distress, obese, other (intubate, but awake) Results - Labs CBC & Chem 7: 11/22/18 05:35 11/23/18 04:22 Labs: Laboratory Last Values WBC 8.8 K/mm3 (4.5-11.0) 11/16/18 05:35 RBC 3.44 M/mm3 (3.65-5.03) L 11/16/18 05:35 Hgb 11.8 gm/dl (10.1-14.3) 11/16/18 05:35 Hct 35.4 % (30.3-42.9) 11/16/18 05:35 MCV 103 fl (79-97) H 11/16/18 05:35 MCH 34 pg (28-32) H 11/16/18 05:35 MCHC 33 % (30-34) 11/16/18 05:35 RDW 17.3 % (13.2-15.2) H 11/16/18 05:35 Plt Count 278 K/mm3 (140-440) 11/16/18 05:35 Lymph % (Auto) 2.5 % (13.4-35.0) L 11/16/18 05:35 [place] % (Auto) 9.3 % (0.0-7.3) H 11/16/18 05:35 Eos % (Auto) 0.1 % (0.0-4.3) 11/16/18 05:35 Baso % (Auto) 0.2 % (0.0-1.8) 11/16/18 05:35 Lymph # 0.2 K/mm3 (1.2-5.4) L 11/16/18 05:35 [place] # 0.8 K/mm3 (0.0-0.8) 11/16/18 05:35 Eos # 0.0 K/mm3 (0.0-0.4) 11/16/18 05:35 Baso # 0.0 K/mm3 (0.0-0.1) 11/16/18 05:35 Seg Neutrophils % 87.9 % (40.0-70.0) H 11/16/18 05:35 Seg Neutrophils # 7.7 K/mm3 (1.8-7.7) 11/16/18 05:35 PT 18.6 Sec. (12.2-14.9) H 11/15/18 18:41 INR 1.59 (0.87-1.13) H 11/15/18 18:41 APTT 28.5 Sec. (24.2-36.6) 11/15/18 18:41 POC ABG pH 7.507 (7.35-7.45) H 11/16/18 03:53 POC ABG pCO2 34.9 (35-45) L 11/16/18 03:53 POC ABG pO2 133 (80-105) H 11/16/18 03:53 POC ABG HCO3 27.6 (22-26 mml/L) 11/16/18 03:53 POC ABG Total CO2 29 (23-27mmol/L) 11/16/18 03:53 POC ABG O2 Sat 99 11/16/18 03:53 POC ABG Base Excess 5 ((-2) - (+3)mmol/L) 11/16/18 03:53 40 % 11/16/18 03:53 Sodium TNR 11/17/18 05:51 Potassium TNR 11/17/18 05:51 Chloride TNR 11/17/18 05:51 Carbon Dioxide TNR 11/17/18 05:51 TNR 11/17/18 05:51 BUN TNR 11/17/18 05:51 TNR 11/17/18 05:51 Estimated GFR TNR 11/17/18 05:51 TNR 11/17/18 05:51 Glucose TNR 11/17/18 05:51 POC Glucose 75 (70-105) 11/16/18 09:18 Calcium TNR 11/17/18 05:51 Phosphorus TNR 11/17/18 05:51 Magnesium 1.70 mg/dL (1.7-2.3) 11/10/18 05:47 0.50 mg/dL (0.1-1.2) 11/15/18 18:41 AST 37 units/L (5-40) 11/15/18 18:41 ALT 15 units/L (7-56) 11/15/18 18:41 78 units/L (35-129) 11/15/18 18:41 293 units/L (30-135) H 11/15/18 18:41 CK-MB (CK-2) 5.6 ng/mL (0.0-4.0) H 11/15/18 18:41 CK-MB (CK-2) Rel Index 1.9 (0-4) 11/15/18 18:41 2.830 ng/mL (0.00-0.029) H* 11/15/18 18:41 4.6 g/dL (6.3-8.2) L 11/15/18 18:41 1.8 g/dL (3.9-5) L 11/15/18 18:41 0.6 % 11/15/18 18:41 Triglycerides 107 mg/dL (2-149) 11/08/18 03:09 Cholesterol 176 mg/dL (50-199) 11/08/18 03:09 137 mg/dL (50-130) H 11/08/18 03:09 33 mg/dL (40-59) L 11/08/18 03:09 5.33 % 11/08/18 03:09 11 units/L (13-60) L 11/13/18 05:38 Yellow (Yellow) 11/16/18 09:26 Slightly-cloudy (Clear) 11/16/18 09:26 7.0 (5.0-7.0) 11/16/18 09:26 Ur Specific [place] 1.014 (1.003-1.030) 11/16/18 09:26 <15 mg/dl mg/dL (Negative) 11/16/18 09:26 Neg mg/dL (Negative) 11/16/18 09:26 Tr mg/dL (Negative) 11/16/18 09:26 Neg (Negative) 11/16/18 09:26 Neg (Negative) 11/16/18 09:26 Neg (Negative) 11/16/18 09:26 < 2.0 mg/dL (<2.0) 11/16/18 09:26 Ur Leukocyte Esterase Neg (Negative) 11/16/18 09:26 2.0 /HPF (0.0-6.0) 11/16/18 09:26 1.0 /HPF (0.0-6.0) 11/16/18 09:26 U Epithel Cells (Auto) < 1.0 /HPF (0-13.0) 11/16/18 09:26 2+ /HPF (Negative) 11/16/18 09:26 Few /HPF 11/16/18 09:26 102.6 mg/dL (0.1-20.0) H 11/16/18 09:26 103.3 mg/dL (0.1-20.0) H 11/16/18 09:26 Protein/Creatinin Ratio 0.27 11/16/18 09:26 28 mg/dL (5-11.8) H 11/16/18 09:26 Active Medications - Current Medications Current Medications: Generic Name Dose Route Start Last Admin Trade Name Freq PRN Reason Stop Dose Admin Albuterol 2.5 mg 11/09/18 08:00 11/14/18 05:32 Proventil IH 2.5 mg Q4HRT PRN Administration Shortness Of Breath Amiodarone HCl 200 mg 11/10/18 22:00 11/16/18 22:41 Cordarone PO 200 mg BID RADHA Administration Apixaban 5 mg 11/09/18 10:00 11/16/18 22:41 Eliquis PO 5 mg Q12HR RADHA Administration Protocol Aspirin 81 mg 11/09/18 10:00 11/16/18 10:00 Halfprin Ec PO Not Given DAILY RADHA Atorvastatin Calcium 40 mg 11/11/18 22:00 11/16/18 22:40 Lipitor PO 40 mg QHS RADHA Administration Bumetanide 1 mg 11/14/18 18:00 11/17/18 06:55 Bumex PO 1 mg 0600,1800 RADHA Administration Bupropion HCl 150 mg 11/09/18 10:00 11/16/18 22:41 Wellbutrin Sr PO 150 mg BID RADHA Administration Magnesium Oxide 400 mg 11/09/18 10:00 11/16/18 10:00 Mag-Ox PO Not Given QDAY [facility] Metolazone 5 mg 11/21/18 10:00 Zaroxolyn PO Fr [facility] Ondansetron HCl 4 mg 11/11/18 13:44 11/16/18 23:44 Zofran IV 4 mg Q8H PRN Administration Nausea And Vomiting Pantoprazole Sodium 40 mg 11/13/18 10:00 11/16/18 10:00 Protonix IV 40 mg QDAY RADHA Administration Polyethylene Glycol 17 gm 11/09/18 10:00 Miralax 3350 PO BID PRN Constipation Sertraline HCl 50 mg 11/09/18 10:00 11/16/18 10:00 Zoloft PO Not Given DAILY [facility] Simethicone 80 mg 11/12/18 11:49 11/15/18 04:05 Mylicon PO 80 mg Q6H PRN Administration Gas pain Sucralfate 1 gm 11/12/18 16:30 11/16/18 22:41 Carafate PO 1 gm ACHS RADHA Administration Nutrition/Malnutrition Assess - Dietary Evaluation Nutrition/Malnutrition Findings: Nutrition Notes Start: 11/14/18 15:47 Freq: Status: Active Protocol: Document 11/15/18 15:23 RM (Rec: 11/15/18 15:29 RM [id number]) Nutrition Notes Initial or Follow up Reassessment Current Diagnosis Acute Kidney Injury,Coronary Artery Disease,Heart Failure Other Pertinent Diagnosis Hx CVA Current Diet NPO Labs/Tests Reviewed Pertinent Medications Zofran Height 5 ft 7 in Weight 124.2 kg [place] Body Weight (kg) 61.36 BMI 42.8 Subjective/Other Information Consulted for evaluate nutritional intake. Pt coded and moved to ICU. Pt on vent. Burn Absent Trauma Absent #1 Nutrition Diagnosis Inadequate oral intake Diagnosis Progress(for reassessment Continues documentation) Is patient on ventilator? Yes Is Patient Ambulatory and/or Out of Bed No REE-([facility]-confined to bed) 2164.680 Kcal/Kg value to use for calculation 14 Approximate Energy Requirements Using 1739 kcal/Kg Calculation Used for Recommendations Kcal/kg Additional Notes Protein Needs: 153g (2.5g/kg IBW) Fluid Needs: 1 ml/kcal Nutrition Intervention Change Diet Order: TF consult Nutrition Support: Vital 1.2 at 60 ml/hr Water flush of 100 mls q 4 hrs Kcal 1,728 Carbohydrates (gm) 108 Fluid (mL) 1,168 Goal #1 TF consult Anticipated Discharge Needs: Unable to determine at this time Follow-Up By: 11/17/18 Additional Comments Follow for TF consult
--- NOTE | 2018-11-17 08:48 | Progress Note ---
Assessment and Plan acute renal failure likely ischemic due to cardiac arrest hypoxic respiratory failure on mechanical ventilation Acute on Chronic systolic heart failure with EF of 10-15 % Paroxysmal atrial fibrillation - Cr and BUn not available this AM, BMP ordered, UOP is improving - no proteinruia, renal US negative for obstruction - no indication for COBOL [employer], will monitor closely - renally dose meds - strict I&O - daily weight Preet jaffe MD [phone] Subjective Date of service: 11/17/18 Principal diagnosis: Chest pain for 3 days Interval history: extubated, transferred to the floor, was on bipap when seen Objective - Vital Signs Vital signs: Vital Signs - 12hr 11/16/18 11/16/18 11/17/18 20:58 22:00 00:10 Temperature 97.6 F 97.6 F Pulse Rate 85 98 H 60 Pulse Rate [ 86 Apical] Pulse Rate [ 98 H From Monitor] Respiratory 24 20 27 H Rate Blood Pressure 107/71 100/70 O2 Sat by Pulse 97 98 100 Oximetry 11/17/18 11/17/18 11/17/18 00:30 02:00 05:22 Temperature 97.3 F L Pulse Rate 88 60 86 Pulse Rate [ Apical] Pulse Rate [ From Monitor] Respiratory 18 24 Rate Blood Pressure 110/72 O2 Sat by Pulse 97 100 Oximetry 11/17/18 11/17/18 06:00 08:38 Temperature 98.4 F Pulse Rate 86 62 Pulse Rate [ Apical] Pulse Rate [ From Monitor] Respiratory 20 Rate Blood Pressure 117/94 O2 Sat by Pulse 100 Oximetry - General Appearance General appearance: well-developed, well-nourished EENT: ATNC, PERRL, mucous membranes moist Neck: no JVD, no carotid bruit Respiratory: Present: Decreased Breath Sounds Cardiology: regular, S1S2 Gastrointestinal: normoactive bowel sounds, no tenderness, no distended, obese Neurologic: no focal deficit, no asterixis, alert and oriented x3 Musculoskeletal: other (treace pitting edema in BLE) Psychiatric: cooperative - Lab 11/16/18 05:35 11/17/18 05:51 Most recent lab results Calcium TNR 11/17/18 05:51 Phosphorus TNR 11/17/18 05:51 Magnesium 1.70 mg/dL (1.7-2.3) 11/10/18 05:47 102.6 mg/dL (0.1-20.0) H 11/16/18 09:26 103.3 mg/dL (0.1-20.0) H 11/16/18 09:26 28 mg/dL (5-11.8) H 11/16/18 09:26 Medications & Allergies - Medications Allergies/Adverse Reactions: Allergies lisinopril Allergy (Verified 02/24/18 09:15) Anaphylaxis Penicillins Allergy (Verified 02/24/18 09:15) Seizure Sulfa (Sulfonamide Antibiotics) Adverse Reaction (Verified 02/24/18 09:15) Hives Home Medications: Home Medications Medication Instructions Recorded Confirmed Last Taken Type Aspirin [Adult Aspirin] 81 mg PO DAILY 02/24/18 11/08/18 05/09/18 History Spironolactone [Aldactone] 25 mg PO QDAY 02/24/18 11/08/18 05/09/18 History buPROPion SR [Wellbutrin SR] 150 mg PO BID 02/24/18 11/08/18 05/09/18 History Albuterol Sulfate [Ventolin HFA] 1 puff IH Q6H PRN 30 Days 03/03/18 11/08/18 05/09/18 Rx [email or web address] Cyclobenzaprine [Flexeril 10 MG 10 mg PO TID PRN 05/10/18 11/08/18 05/09/18 History TAB] Diphenhydramine HCl [Allergy 25 mg PO DAILY 05/10/18 11/08/18 05/09/18 History Relief] ISOSORBIDE MONOnitrate [Imdur ER] 60 mg PO QDAY 05/10/18 11/08/18 05/09/18 History Sertraline HCl [Zoloft] 50 mg PO DAILY 05/10/18 11/08/18 05/09/18 History hydrALAZINE [Apresoline TAB] 25 mg PO Q8HR 05/10/18 11/08/18 05/09/18 History Apixaban [Eliquis] 5 mg PO Q12HR #60 tablet 07/02/18 11/08/18 Unknown Rx Pantoprazole [Protonix TAB] 40 mg PO QDAY #30 tablet 07/02/18 11/08/18 Unknown Rx Polyethylene Glycol 3350 [Miralax 17 gm PO BID PRN #30 powd.pack 07/02/18 11/08/18 Unknown Rx 3350] Carvedilol [Coreg] 3.125 mg PO BID #60 tablet 09/10/18 11/08/18 Unknown Rx Magnesium Oxide [Mag-Ox] 400 mg PO QDAY #7 tablet 10/04/18 11/08/18 Unknown Rx Potassium Chloride [K-Dur] 20 meq PO QDAY #7 tablet 10/04/18 11/08/18 Unknown Rx Torsemide [Demadex] 40 mg PO BID #60 tablet 10/04/18 11/08/18 Unknown Rx metOLazone [Zaroxolyn] 5 mg PO QDAY #30 tablet 10/04/18 11/08/18 Unknown Rx Active Medications: Generic Name Dose Route Start Last Admin Trade Name Freq PRN Reason Stop Dose Admin Albuterol 2.5 mg 11/09/18 08:00 11/14/18 05:32 Proventil IH 2.5 mg Q4HRT PRN Administration Shortness Of Breath Amiodarone HCl 200 mg 11/10/18 22:00 11/16/18 22:41 Cordarone PO 200 mg BID RADHA Administration Apixaban 5 mg 11/09/18 10:00 11/16/18 22:41 Eliquis PO 5 mg Q12HR RADHA Administration Protocol Aspirin 81 mg 11/09/18 10:00 11/16/18 10:00 Halfprin Ec PO Not Given DAILY RADHA Atorvastatin Calcium 40 mg 11/11/18 22:00 11/16/18 22:40 Lipitor PO 40 mg QHS RADHA Administration Bumetanide 1 mg 11/14/18 18:00 11/17/18 06:55 Bumex PO 1 mg 0600,1800 RADHA Administration Bupropion HCl 150 mg 11/09/18 10:00 11/16/18 22:41 Wellbutrin Sr PO 150 mg BID RADHA Administration Magnesium Oxide 400 mg 11/09/18 10:00 11/16/18 10:00 Mag-Ox PO Not Given QDAY RADHA Metolazone 5 mg 11/21/18 10:00 Zaroxolyn PO Fr RADHA Ondansetron HCl 4 mg 11/11/18 13:44 11/16/18 23:44 Zofran IV 4 mg Q8H PRN Administration Nausea And Vomiting Pantoprazole Sodium 40 mg 11/13/18 10:00 11/16/18 10:00 Protonix IV 40 mg QDAY RADHA Administration Polyethylene Glycol 17 gm 11/09/18 10:00 Miralax 3350 PO BID PRN Constipation Sertraline HCl 50 mg 11/09/18 10:00 11/16/18 10:00 Zoloft PO Not Given DAILY RADHA Simethicone 80 mg 11/12/18 11:49 11/15/18 04:05 Mylicon PO 80 mg Q6H PRN Administration Gas pain Sucralfate 1 gm 11/12/18 16:30 11/16/18 22:41 Carafate PO 1 gm ACHS RADHA Administration
[2018-11-17] MEDS: PROTONIX IV SCH (09:35)
[2018-11-17] MEDS: HALFPRIN EC PO SCH (09:35)
[2018-11-17] MEDS: CARAFATE PO SCH ×4 (09:35→21:39)
[2018-11-17] MEDS: MAG-OX PO SCH (09:35)
[2018-11-17] MEDS: WELLBUTRIN SR PO SCH ×2 (09:35→21:39)
[2018-11-17] MEDS: ELIQUIS PO SCH ×2 (09:35→21:39)
[2018-11-17] MEDS: CORDARONE PO SCH ×2 (09:35→21:39)
[2018-11-17] MEDS: ZOLOFT PO SCH (09:36)
--- NOTE | 2018-11-17 10:47 | Progress Note ---
Assessment and Plan Acute on Chronic systolic heart failure Suspect non-compliance Multiple HF admission s/p Cardiac arrest 11/15 Acute renal failure Ascites Patient had paracentesis in previous admissions Hx of LUE DVT Hx of coronary artery disease cardiac cath 03/2018 revealed patent SVG to LAD, patent SVG to OM, patent SVG to PDA and patent diagonal stent, LVEF 10-15%. Non-specific troponin Hx of Ischemic cardiomyopathy ejection fraction 10-15% by echo 08/2018 Presence of single chamber cardiac defibrillator underlying paroxysmal atrial fibrillation previously treated with eliquis for oral anticoagulation therapy. on amiodarone Tobacco abuse Recommendations: Fluid/sodium restriction. Daily weight. Medical therapy for paroxysmal atrial fibrillation, ischemic cardiomyopathy and chronic systolic heart failure. We will obtain an device interrogation. Subjective Date of service: 11/17/18 Principal diagnosis: Chest pain for 3 days Interval history: Patient is resting in bed comfortably. Reported cardiac arrest 11/15. Details are unclear. Objective Vital Signs Temp Pulse Pulse Pulse Resp BP Pulse Ox 11/17/18 08:38 98.4 F 62 20 117/94 100 11/17/18 06:00 86 11/17/18 05:22 97.3 F L 86 24 110/72 100 11/17/18 02:00 60 11/17/18 00:30 88 18 97 11/17/18 00:10 97.6 F 60 27 H 100/70 100 11/16/18 22:00 98 H 86 98 H 20 98 11/16/18 20:58 97.6 F 85 24 107/71 97 11/16/18 20:11 91 H 22 114/62 100 11/16/18 20:00 90 19 114/62 99 11/16/18 19:51 19 114/70 100 11/16/18 19:41 90 21 105/69 100 11/16/18 19:30 81 17 122/59 99 11/16/18 19:21 86 19 113/68 100 11/16/18 19:11 81 21 105/69 99 11/16/18 19:00 82 15 105/69 99 11/16/18 18:51 88 13 111/75 99 11/16/18 18:41 114/42 100 11/16/18 18:31 91 H 109/48 100 11/16/18 18:21 90 109/48 100 08/04/19 18:10 89 114/42 100 08/04/19 18:00 88 114/42 100 11/16/18 17:51 94 H 105/58 99 11/16/18 17:41 90 125/65 98 11/16/18 17:30 92 H 125/65 99 11/16/18 17:21 64 19 116/74 100 11/16/18 17:11 88 20 121/55 100 11/16/18 17:00 88 19 102/63 100 11/16/18 16:51 89 16 112/56 100 11/16/18 16:41 89 18 121/55 100 11/16/18 16:30 89 19 121/55 100 11/16/18 16:21 92 H 17 123/59 100 11/16/18 16:11 13 119/68 100 11/16/18 16:01 74 18 103/61 100 11/16/18 16:00 76 89 15 99 11/16/18 15:51 90 18 134/65 100 11/16/18 15:41 80 18 119/68 100 11/16/18 15:30 90 19 119/68 100 11/16/18 15:21 90 19 121/60 100 11/16/18 15:11 82 17 124/60 100 11/16/18 15:00 89 18 127/63 100 11/16/18 14:51 79 18 114/63 100 11/16/18 14:40 91 H 16 124/60 100 11/16/18 14:30 90 10 L 124/60 100 11/16/18 14:21 89 19 114/74 100 11/16/18 14:10 89 19 101/48 11/16/18 14:01 90 20 102/68 100 11/16/18 13:51 90 22 102/68 100 11/16/18 13:41 91 H 14 115/70 88 11/16/18 13:30 90 11 L 115/70 99 11/16/18 13:21 11 L 111/76 100 11/16/18 13:20 84 111/76 96 11/16/18 13:11 60 18 122/59 56 L 11/16/18 13:00 90 14 122/59 99 11/16/18 12:51 90 21 128/52 100 11/16/18 12:40 95 H 18 116/62 100 11/16/18 12:30 90 18 106/64 99 11/16/18 12:21 90 17 116/62 98 11/16/18 12:11 91 H 19 104/37 100 11/16/18 12:00 97.4 F L 90 91 H 15 100 - Physical Examination General: No Apparent Distress HEENT: Positive: PERRL Cardiac: Positive: irregularly irregular Lungs: Positive: Decreased Breath Sounds Neuro: Positive: Grossly Intact Extremities: Present: +1 Edema - Labs and Meds Comprehensive Metabolic Panel 11/17/18 Range/Units 05:51 Sodium TNR Potassium TNR Chloride TNR Carbon Dioxide TNR BUN TNR Creatinine TNR Glucose TNR Calcium TNR
[2018-11-17 10:59] LABS: Basophils % (Auto) 0.3 % (0.0-1.8); Hematocrit 35.5 % (30.3-42.9); Hemoglobin 11.7 gm/dl (10.1-14.3); Lymphocytes # (Auto) 0.2 K/mm3 (1.2-5.4); Lymphocytes % (Auto) 4.1 % (13.4-35.0); Mean Corpuscular HGB Conc 33 % (30-34); Mean Corpuscular Volume 104 fl (79-97); Monocytes # (Auto) 0.5 K/mm3 (0.0-0.8); Monocytes % (Auto) 9.8 % (0.0-7.3); Platelet Count 236 K/mm3 (140-440); Red Blood Count 3.41 M/mm3 (3.65-5.03); Red Cell Distribution Width 17.4 % (13.2-15.2)
--- NOTE | 2018-11-17 15:04 | Progress Note ---
Assessment and Plan Imp: 1. S/p CP arrest of ? etiology 2. ICMP 3. A/C systolic CHF 4. KERWIN 5. Morbid obesity 6. HUNTER, noncompliant w/ CPAP 7. CAD Rec: 1. Cardiac optimization per cardiology; having defibrillator interrogated 2. Cont. BIPAP QHS; patient noncompliant with CPAP chronically per above, apparently lost her machine at some point; recommend repeating sleep studies as an outpatient to get a new machine, or see if her hospice agency could get her o ne 3. Weight loss 4. Current chest pain is musculoskeletal and likely due to chest compressions 5. Try to mobilize; will follow with you, currently stable pulm-recinos Plan of care reviewed w/ patient, she understands/agrees Subjective Date of service: 11/17/18 Principal diagnosis: Chest pain for 3 days Interval history: On O2 by nasal cannula now. SOB worse than usual b/c she is having anterior pleuritic chest pain over her L costochondral joint, hurts to breathe. No other complaints currently. Active Medications Albuterol (Proventil) 2.5 mg IH Q4HRT PRN PRN Reason: Shortness Of Breath Last Admin: 11/14/18 05:32 Dose: 2.5 mg Documented by: Amiodarone HCl (Cordarone) 200 mg PO BID [facility] Last Admin: 11/17/18 09:35 Dose: 200 mg Documented by: Apixaban (Eliquis) 5 mg PO Q12HR [facility]; Protocol Last Admin: 11/17/18 09:35 Dose: 5 mg Documented by: Aspirin (Halfprin Ec) 81 mg PO DAILY [facility] Last Admin: 11/17/18 09:35 Dose: 81 mg Documented by: Atorvastatin Calcium (Lipitor) 40 mg PO QHS [facility] Last Admin: 11/16/18 22:40 Dose: 40 mg Documented by: Bumetanide (Bumex) 1 mg PO 0600,1800 [facility] Last Admin: 11/17/18 06:55 Dose: 1 mg Documented by: Bupropion HCl (Wellbutrin Sr) 150 mg PO BID [facility] Last Admin: 11/17/18 09:35 Dose: 150 mg Documented by: Magnesium Oxide (Mag-Ox) 400 mg PO QDAY [facility] Last Admin: 11/17/18 09:35 Dose: 400 mg Documented by: Metolazone (Zaroxolyn) 5 mg PO Fr [facility] Ondansetron HCl (Zofran) 4 mg IV Q8H PRN PRN Reason: Nausea And Vomiting Last Admin: 11/16/18 23:44 Dose: 4 mg Documented by: Pantoprazole Sodium (Protonix) 40 mg PO DAILY [facility] Polyethylene Glycol (Miralax 3350) 17 gm PO BID PRN PRN Reason: Constipation Sertraline HCl (Zoloft) 50 mg PO DAILY [facility] Last Admin: 11/17/18 09:36 Dose: 50 mg Documented by: Simethicone (Mylicon) 80 mg PO Q6H PRN PRN Reason: Gas pain Last Admin: 11/15/18 04:05 Dose: 80 mg Documented by: Sucralfate (Carafate) 1 gm PO [facility] Last Admin: 11/17/18 12:53 Dose: 1 gm Documented by: Tramadol HCl (Ultram) 50 mg PO Q6H PRN PRN Reason: Pain, Moderate (4-6) Objective Vital Signs - 12hr 11/17/18 11/17/18 11/17/18 05:22 06:00 08:00 Temperature 97.3 F L Pulse Rate 86 86 85 Respiratory 24 20 Rate Blood Pressure 110/72 O2 Sat by Pulse 100 95 Oximetry 11/17/18 11/17/18 08:38 13:07 Temperature 98.4 F 98.4 F Pulse Rate 62 85 Respiratory 20 18 Rate Blood Pressure 117/94 99/69 O2 Sat by Pulse 100 100 Oximetry Constitutional: no acute distress, alert, other (obese) Eyes: non-icteric ENT: oropharynx moist Neck: supple Effort: normal Ascultation: Bilateral: clear (anteriorly, decreased due to obesity) Percussion: Bilateral: not dull Cardiovascular: regular rate and rhythm (no mrg) Gastrointestinal: normoactive bowel sounds, soft, non-tender, non-distended Integumentary: normal Extremities: pink and warm, edema (2+ bilateral LE edema) Neurologic: normal mental status, non-focal exam, pupils equal and round, CN II- XII normal Psychiatric: mood appropriate, affect normal Additional exam: Reproducible chest pain over L costochonral/sternal area CBC and BMP: 11/17/18 10:42 11/17/18 05:51 ABG, PT/INR, D-dimer: ABG POC ABG pH 7.507 (7.35-7.45) H 11/16/18 03:53 POC ABG pCO2 34.9 (35-45) L 11/16/18 03:53 POC ABG pO2 133 (80-105) H 11/16/18 03:53 POC ABG HCO3 27.6 (22-26 mml/L) 11/16/18 03:53 POC ABG Total CO2 29 (23-27mmol/L) 11/16/18 03:53 POC ABG O2 Sat 99 11/16/18 03:53 PT/INR, D-dimer PT 18.6 Sec. (12.2-14.9) H 11/15/18 18:41 INR 1.59 (0.87-1.13) H 11/15/18 18:41 Abnormal lab findings: Abnormal Labs 11/08/18 11/08/18 11/08/18 03:09 03:09 05:50 RBC 3.37 L MCV 106 H MCH 34 H RDW 17.1 H Lymph % (Auto) 4.6 L Mcleod % (Auto) 11.5 H Lymph # 0.2 L Seg Neutrophils % 83.0 H PT INR POC ABG pH POC ABG pCO2 POC ABG pO2 Sodium 135 L Chloride Carbon Dioxide BUN 29 H Creatinine 1.4 H Glucose POC Glucose Calcium 8.1 L Phosphorus Total Creatine Kinase CK-MB (CK-2) Troponin T 0.042 H 0.039 H Total Protein Albumin LDL Cholesterol Direct 137 H HDL Cholesterol 33 L Lipase Urine Creatinine Urine Total Protein 11/10/18 11/10/18 11/10/18 05:47 07:32 13:08 RBC MCV MCH RDW Lymph % (Auto) Mcleod % (Auto) Lymph # Seg Neutrophils % PT INR POC ABG pH POC ABG pCO2 POC ABG pO2 Sodium Chloride Carbon Dioxide 32 H BUN 25 H Creatinine Glucose 104 H POC Glucose 115 H 142 H Calcium 7.9 L Phosphorus Total Creatine Kinase CK-MB (CK-2) Troponin T Total Protein Albumin LDL Cholesterol Direct HDL Cholesterol Lipase Urine Creatinine Urine Total Protein 11/10/18 11/10/18 11/11/18 16:55 21:21 07:51 RBC MCV MCH RDW Lymph % (Auto) Mcleod % (Auto) Lymph # Seg Neutrophils % PT INR POC ABG pH POC ABG pCO2 POC ABG pO2 Sodium Chloride Carbon Dioxide BUN Creatinine Glucose POC Glucose 125 H 126 H 118 H Calcium Phosphorus Total Creatine Kinase CK-MB (CK-2) Troponin T Total Protein Albumin LDL Cholesterol Direct HDL Cholesterol Lipase Urine Creatinine Urine Total Protein 11/11/18 11/11/18 11/12/18 12:25 21:32 07:46 RBC MCV MCH RDW Lymph % (Auto) Mcleod % (Auto) Lymph # Seg Neutrophils % PT INR POC ABG pH POC ABG pCO2 POC ABG pO2 Sodium Chloride 97.7 L Carbon Dioxide BUN 28 H Creatinine Glucose POC Glucose 125 H 126 H Calcium 8.0 L Phosphorus Total Creatine Kinase CK-MB (CK-2) Troponin T Total Protein Albumin LDL Cholesterol Direct HDL Cholesterol Lipase Urine Creatinine Urine Total Protein 11/12/18 11/12/18 11/13/18 08:57 11:35 05:38 RBC MCV MCH RDW Lymph % (Auto) Mcleod % (Auto) Lymph # Seg Neutrophils % PT INR POC ABG pH POC ABG pCO2 POC ABG pO2 Sodium Chloride 97.3 L Carbon Dioxide 31 H BUN 33 H Creatinine 1.5 H Glucose 111 H POC Glucose 120 H 137 H Calcium 7.8 L Phosphorus Total Creatine Kinase CK-MB (CK-2) Troponin T Total Protein Albumin LDL Cholesterol Direct HDL Cholesterol Lipase Urine Creatinine Urine Total Protein 11/13/18 11/14/18 11/15/18 05:38 06:07 06:11 RBC MCV MCH RDW Lymph % (Auto) Mcleod % (Auto) Lymph # Seg Neutrophils % PT INR POC ABG pH POC ABG pCO2 POC ABG pO2 Sodium 135 L Chloride 96.8 L Carbon Dioxide BUN 36 H Creatinine 1.9 H Glucose 117 H POC Glucose 128 H Calcium 8.2 L Phosphorus Total Creatine Kinase CK-MB (CK-2) Troponin T Total Protein Albumin LDL Cholesterol Direct HDL Cholesterol Lipase 11 L Urine Creatinine Urine Total Protein 11/15/18 11/15/18 11/15/18 08:50 18:41 18:41 RBC 3.51 L MCV 103 H MCH 34 H RDW 17.4 H Lymph % (Auto) 3.3 L Mcleod % (Auto) 9.2 H Lymph # 0.2 L Seg Neutrophils % 87.2 H PT INR POC ABG pH 7.533 H POC ABG pCO2 33.9 L POC ABG pO2 237 H Sodium 136 L Chloride 95.3 L Carbon Dioxide BUN 46 H Creatinine 2.3 H Glucose POC Glucose Calcium 8.3 L Phosphorus Total Creatine Kinase CK-MB (CK-2) Troponin T Total Protein 4.6 L Albumin 1.8 L LDL Cholesterol Direct HDL Cholesterol Lipase Urine Creatinine Urine Total Protein 11/15/18 11/15/18 11/16/18 18:41 18:41 03:53 RBC MCV MCH RDW Lymph % (Auto) Mcleod % (Auto) Lymph # Seg Neutrophils % PT 18.6 H INR 1.59 H POC ABG pH 7.507 H POC ABG pCO2 34.9 L POC ABG pO2 133 H Sodium Chloride Carbon Dioxide BUN Creatinine Glucose POC Glucose Calcium Phosphorus Total Creatine Kinase 293 H CK-MB (CK-2) 5.6 H Troponin T 2.830 H* Total Protein Albumin LDL Cholesterol Direct HDL Cholesterol Lipase Urine Creatinine Urine Total Protein 11/16/18 11/16/18 11/16/18 05:35 05:35 09:26 RBC 3.44 L MCV 103 H MCH 34 H RDW 17.3 H Lymph % (Auto) 2.5 L Mcleod % (Auto) 9.3 H Lymph # 0.2 L Seg Neutrophils % 87.9 H PT INR POC ABG pH POC ABG pCO2 POC ABG pO2 Sodium 135 L Chloride 95.9 L Carbon Dioxide BUN 47 H Creatinine 2.2 H Glucose POC Glucose Calcium 8.1 L Phosphorus 4.60 H Total Creatine Kinase CK-MB (CK-2) Troponin T Total Protein Albumin LDL Cholesterol Direct HDL Cholesterol Lipase Urine Creatinine 103.3 H Urine Total Protein 11/16/18 11/17/18 09:26 10:42 RBC 3.41 L MCV 104 H MCH 34 H RDW 17.4 H Lymph % (Auto) 4.1 L Mcleod % (Auto) 9.8 H Lymph # 0.2 L Seg Neutrophils % 85.8 H PT INR POC ABG pH POC ABG pCO2 POC ABG pO2 Sodium Chloride Carbon Dioxide BUN Creatinine Glucose POC Glucose Calcium Phosphorus Total Creatine Kinase CK-MB (CK-2) Troponin T Total Protein Albumin LDL Cholesterol Direct HDL Cholesterol Lipase Urine Creatinine 102.6 H Urine Total Protein 28 H Chest x-ray: report reviewed, image reviewed (massive cardiomegaly, improved e kalina)
[2018-11-17] MEDS: ZOFRAN IV PRN (15:52)
[2018-11-17] MEDS: ULTRAM PO PRN (15:52)
[2018-11-17] MEDS: PROVENTIL IH PRN (21:42)
[2018-11-18] MEDS: ZOFRAN IV PRN ×3 (00:43→17:51)
[2018-11-18] MEDS: ULTRAM PO PRN (02:47)
[2018-11-18 05:27] LABS: Basophils % (Auto) 0.3 % (0.0-1.8); Eosinophils % (Auto) 0.1 % (0.0-4.3); Hematocrit 36.5 % (30.3-42.9); Lymphocytes # (Auto) 0.3 K/mm3 (1.2-5.4); Lymphocytes % (Auto) 4.9 % (13.4-35.0); Mean Corpuscular HGB Conc 33 % (30-34); Mean Corpuscular Volume 104 fl (79-97); Monocytes # (Auto) 0.4 K/mm3 (0.0-0.8); Monocytes % (Auto) 7.6 % (0.0-7.3); Platelet Count 252 K/mm3 (140-440); Red Cell Distribution Width 17.7 % (13.2-15.2)
[2018-11-18 05:44] LABS: Calcium 7.7 mg/dL (8.4-10.2)
[2018-11-18] MEDS: BUMEX PO SCH ×2 (06:18→17:47)
[2018-11-18] MEDS: CARAFATE PO SCH ×4 (09:57→22:54)
[2018-11-18] MEDS: CORDARONE PO SCH ×2 (09:58→22:53)
[2018-11-18] MEDS: ELIQUIS PO SCH ×2 (09:58→22:54)
[2018-11-18] MEDS: WELLBUTRIN SR PO SCH ×2 (09:58→22:54)
[2018-11-18] MEDS: ZOLOFT PO SCH (09:58)
[2018-11-18] MEDS: HALFPRIN EC PO SCH (09:58)
[2018-11-18] MEDS: PROTONIX PO SCH (09:58)
[2018-11-18] MEDS: MAG-OX PO SCH (10:27)
--- NOTE | 2018-11-18 11:21 | Progress Note ---
Assessment and Plan Acute on Chronic systolic heart failure Suspect non-compliance Multiple HF admission s/p Cardiopulmonary arrest 11/15 device interrogation revealed no activity Acute renal failure Ascites Patient had paracentesis in previous admissions Hx of LUE DVT Hx of coronary artery disease cardiac cath 03/2018 revealed patent SVG to LAD, patent SVG to OM, patent SVG to PDA and patent diagonal stent, LVEF 10-15%. Non-specific troponin Hx of Ischemic cardiomyopathy ejection fraction 10-15% by echo 08/2018 Presence of single chamber cardiac defibrillator underlying paroxysmal atrial fibrillation previously treated with eliquis for oral anticoagulation therapy. on amiodarone Tobacco abuse Recommendations: Fluid/sodium restriction. Daily weight. Medical therapy for paroxysmal atrial fibrillation, ischemic cardiomyopathy and chronic systolic heart failure. We will add metoprolol for suppression of SVT and paroxysmal afib. Subjective Date of service: 11/18/18 Principal diagnosis: Chest pain for 3 days Interval history: Patient is resting in bed comfortably. Objective Vital Signs Temp Pulse Pulse Resp Resp BP BP 11/18/18 08:52 84 114/77 11/18/18 07:42 97.0 F L 82 24 137/77 11/18/18 05:44 94/58 11/18/18 01:57 79 20 11/17/18 23:55 98.1 F 51 L 20 109/75 11/17/18 22:36 85 11/17/18 21:47 11/17/18 21:42 78 17 11/17/18 20:48 20 11/17/18 20:38 96.4 F L 85 20 98/30 11/17/18 13:07 98.4 F 85 18 99/69 Pulse Ox 11/18/18 08:52 100 11/18/18 07:42 96 11/18/18 05:44 11/18/18 01:57 96 11/17/18 23:55 100 11/17/18 22:36 11/17/18 21:47 96 11/17/18 21:42 11/17/18 20:48 11/17/18 20:38 100 11/17/18 13:07 100 - Physical Examination General: No Apparent Distress HEENT: Positive: PERRL Neck: Positive: neck supple Cardiac: Positive: Reg Rate and Rhythm Lungs: Positive: Decreased Breath Sounds Neuro: Positive: Grossly Intact Extremities: Present: +1 Edema - Labs and Meds CBC 11/18/18 Range/Units 04:45 WBC 5.8 (4.5-11.0) K/mm3 RBC 3.50 L (3.65-5.03) M/mm3 Hgb 12.0 (10.1-14.3) gm/dl Hct 36.5 (30.3-42.9) % Plt Count 252 (140-440) K/mm3 Lymph # 0.3 L (1.2-5.4) K/mm3 [place] # 0.4 (0.0-0.8) K/mm3 Eos # 0.0 (0.0-0.4) K/mm3 Baso # 0.0 (0.0-0.1) K/mm3 Comprehensive Metabolic Panel 11/18/18 Range/Units 04:45 Sodium 137 (137-145) mmol/L Potassium 3.5 L (3.6-5.0) mmol/L Chloride 95.9 L (98-107) mmol/L Carbon Dioxide 29 (22-30) mmol/L BUN 58 H (7-17) mg/dL Creatinine 2.7 H (0.7-1.2) mg/dL Glucose 137 H (65-100) mg/dL Calcium 7.7 L (8.4-10.2) mg/dL
--- NOTE | 2018-11-18 12:14 | Progress Note ---
Assessment and Plan Acute renal failure likely ischemic due to cardiac arrest Hypoxic respiratory failure on mechanical ventilation Acute on Chronic systolic heart failure with EF of 10-15 % Paroxysmal atrial fibrillation - Renal function reviewed. Serum creatinine 2.7 today, yesterday's level was 2.2 - On Bumex 1 mg po BID and Metolazone 5 mg po daily, will discontinue Metolazone for now given worsening renal function - No proteinruia, renal US negative for obstruction - Renally dose medications - Strict I&O monitoring - Obtain daily weights - No indication for HEALTH ADMINISTRATOR - Continue to monitor renal function - Plan of care reviewed with Dr. Mendez Subjective Date of service: 11/18/18 Principal diagnosis: Chest pain for 3 days Interval history: Patient seen sitting up in bed. States she has been throwing up since Saturday. States Coravin is not working. Objective - Vital Signs Vital signs: Vital Signs - 12hr 11/18/18 11/18/18 11/18/18 01:57 05:44 07:42 Temperature 97.0 F L Pulse Rate 79 82 Respiratory 20 24 Rate Blood Pressure 137/77 Blood Pressure 94/58 [Left] O2 Sat by Pulse 96 96 Oximetry 11/18/18 08:52 Temperature Pulse Rate 84 Respiratory Rate Blood Pressure 114/77 Blood Pressure [Left] O2 Sat by Pulse 100 Oximetry - General Appearance General appearance: well-developed, fatigue EENT: ATNC, PERRL, hearing intact, vision intact Neck: no JVD, supple Respiratory: Present: Decreased Breath Sounds Cardiology: S1S2 Gastrointestinal: normoactive bowel sounds Integumentary: no rash Neurologic: alert and oriented x3 Musculoskeletal: joint swelling, other (Has 2+ edema to BLE) Psychiatric: mood/affect appropriate - Lab 11/18/18 04:45 11/18/18 04:45 Most recent lab results Calcium 7.7 mg/dL (8.4-10.2) L 11/18/18 04:45 Phosphorus 5.00 mg/dL (2.5-4.5) H 11/18/18 04:45 Magnesium 1.90 mg/dL (1.7-2.3) 11/18/18 04:45 102.6 mg/dL (0.1-20.0) H 11/16/18 09:26 103.3 mg/dL (0.1-20.0) H 11/16/18 09:26 28 mg/dL (5-11.8) H 11/16/18 09:26 Medications & Allergies - Medications Allergies/Adverse Reactions: Allergies lisinopril Allergy (Verified 02/24/18 09:15) Anaphylaxis Penicillins Allergy (Verified 02/24/18 09:15) Seizure Sulfa (Sulfonamide Antibiotics) Adverse Reaction (Verified 02/24/18 09:15) Hives Home Medications: Home Medications Medication Instructions Recorded Confirmed Last Taken Type Aspirin [Adult Aspirin] 81 mg PO DAILY 02/24/18 11/08/18 05/09/18 History Spironolactone [Aldactone] 25 mg PO QDAY 02/24/18 11/08/18 05/09/18 History buPROPion SR [Wellbutrin SR] 150 mg PO BID 02/24/18 11/08/18 05/09/18 History Albuterol Sulfate [Ventolin HFA] 1 puff IH Q6H PRN 30 Days 03/03/18 11/08/18 05/09/18 Rx hfa.[email or web address].[email or web address] Cyclobenzaprine [Flexeril 10 MG 10 mg PO TID PRN 05/10/18 11/08/18 05/09/18 History TAB] Diphenhydramine HCl [Allergy 25 mg PO DAILY 05/10/18 11/08/18 05/09/18 History Relief] ISOSORBIDE MONOnitrate [Imdur ER] 60 mg PO QDAY 05/10/18 11/08/18 05/09/18 History Sertraline HCl [Zoloft] 50 mg PO DAILY 05/10/18 11/08/18 05/09/18 History hydrALAZINE [Apresoline TAB] 25 mg PO Q8HR 05/10/18 11/08/18 05/09/18 History Apixaban [Eliquis] 5 mg PO Q12HR #60 tablet 07/02/18 11/08/18 Unknown Rx Pantoprazole [Protonix TAB] 40 mg PO QDAY #30 tablet 07/02/18 11/08/18 Unknown Rx Polyethylene Glycol 3350 [Miralax 17 gm PO BID PRN #30 powd.pack 07/02/18 11/08/18 Unknown Rx 3350] Carvedilol [Coreg] 3.125 mg PO BID #60 tablet 09/10/18 11/08/18 Unknown Rx Magnesium Oxide [Mag-Ox] 400 mg PO QDAY #7 tablet 10/04/18 11/08/18 Unknown Rx Potassium Chloride [K-Dur] 20 meq PO QDAY #7 tablet 10/04/18 11/08/18 Unknown Rx Torsemide [Demadex] 40 mg PO BID #60 tablet 10/04/18 11/08/18 Unknown Rx metOLazone [Zaroxolyn] 5 mg PO QDAY #30 tablet 10/04/18 11/08/18 Unknown Rx Active Medications: Generic Name Dose Route Start Last Admin Trade Name Freq PRN Reason Stop Dose Admin Albuterol 2.5 mg 11/09/18 08:00 11/17/18 21:42 Proventil IH 2.5 mg Q4HRT PRN Administration Shortness Of Breath Amiodarone HCl 200 mg 11/10/18 22:00 11/18/18 09:58 Cordarone PO 200 mg BID RADHA Administration Apixaban 5 mg 11/09/18 10:00 11/18/18 09:58 Eliquis PO 5 mg Q12HR RADHA Administration Protocol Aspirin 81 mg 11/09/18 10:00 11/18/18 09:58 Halfprin Ec PO 81 mg DAILY RADHA Administration Atorvastatin Calcium 40 mg 11/11/18 22:00 11/17/18 21:39 Lipitor PO 40 mg QHS RADHA Administration Bumetanide 1 mg 11/14/18 18:00 11/18/18 06:18 Bumex PO 1 mg 0600,1800 RADHA Administration Bupropion HCl 150 mg 11/09/18 10:00 11/18/18 09:58 Wellbutrin Sr PO 150 mg BID RADHA Administration Magnesium Oxide 400 mg 11/09/18 10:00 11/18/18 10:27 Mag-Ox PO Not Given QDAY [facility] Metolazone 5 mg 11/21/18 10:00 Zaroxolyn PO [facility] Metoprolol Tartrate 25 mg 11/18/18 12:00 Lopressor PO Q6HR RADHA Ondansetron HCl 4 mg 11/11/18 13:44 11/18/18 09:57 Zofran IV 4 mg Q8H PRN Administration Nausea And Vomiting Pantoprazole Sodium 40 mg 11/18/18 10:00 11/18/18 09:58 Protonix PO 40 mg DAILY RADAH Administration Polyethylene Glycol 17 gm 11/09/18 10:00 Miralax 3350 PO BID PRN Constipation Sertraline HCl 50 mg 11/09/18 10:00 11/18/18 09:58 Zoloft PO 50 mg DAILY RADHA Administration Simethicone 80 mg 11/12/18 11:49 11/15/18 04:05 Mylicon PO 80 mg Q6H PRN Administration Gas pain Sucralfate 1 gm 11/12/18 16:30 11/18/18 09:57 Carafate PO 1 gm ACHS RADHA Administration Tramadol HCl 50 mg 11/17/18 12:55 11/18/18 02:47 Ultram PO 50 mg Q6H PRN Administration Pain, Moderate (4-6)
[2018-11-18] MEDS: LOPRESSOR PO SCH ×2 (12:59→17:47)
--- NOTE | 2018-11-18 13:40 | XRay Report ---
ABDOMEN 1 VIEW INDICATION / CLINICAL INFORMATION: vomiting. COMPARISON: None available. FINDINGS: TUBES / LINES: None. BOWEL GAS PATTERN: No significant abnormality. FREE AIR / EXTRALUMINAL GAS: None seen. ADDITIONAL FINDINGS: No significant additional findings. IMPRESSION: 1. No bowel obstruction or free air is identified. Signer Name: Betty Velez MD Signed: 11/18/2018 1:36 PM Workstation Name: [id number]
--- NOTE | 2018-11-18 15:14 | Progress Note ---
Assessment and Plan Imp: 1. S/p CP arrest of ? etiology 2. ICMP 3. A/C systolic CHF 4. KERWIN 5. Morbid obesity 6. HUNTER, noncompliant w/ CPAP 7. CAD Rec: 1. Cardiac optimization per cardiology 2. Cont. BIPAP QHS; patient noncompliant with CPAP chronically per above, apparently lost her machine at some point; recommend repeating sleep studies as an outpatient to get a new machine, or see if her hospice agency could get her one 3. Weight loss 4. Current chest pain is musculoskeletal and likely due to chest compressions 5. Renal following re: worsening KERWIN 6. Try to mobilize; will follow with you, currently stable pulm-recinos Plan of care reviewed w/ patient, she understands/agrees Subjective Date of service: 11/18/18 Principal diagnosis: Chest pain for 3 days Interval history: On O2 by nasal cannula now. SOB worse than usual b/c she is having anterior pleuritic chest pain over her L costochondral joint, hurts to breathe. No other complaints currently. Active Medications Albuterol (Proventil) 2.5 mg IH Q4HRT PRN PRN Reason: Shortness Of Breath Last Admin: 11/17/18 21:42 Dose: 2.5 mg Documented by: Amiodarone HCl (Cordarone) 200 mg PO BID [facility] Last Admin: 11/18/18 09:58 Dose: 200 mg Documented by: Apixaban (Eliquis) 5 mg PO Q12HR [facility]; Protocol Last Admin: 11/18/18 09:58 Dose: 5 mg Documented by: Aspirin (Halfprin Ec) 81 mg PO DAILY [facility] Last Admin: 11/18/18 09:58 Dose: 81 mg Documented by: Atorvastatin Calcium (Lipitor) 40 mg PO QHS [facility] Last Admin: 11/17/18 21:39 Dose: 40 mg Documented by: Bumetanide (Bumex) 1 mg PO 0600,1800 [facility] Last Admin: 11/18/18 06:18 Dose: 1 mg Documented by: Bupropion HCl (Wellbutrin Sr) 150 mg PO BID [facility] Last Admin: 11/18/18 09:58 Dose: 150 mg Documented by: Magnesium Oxide (Mag-Ox) 400 mg PO QDAY [facility] Last Admin: 11/18/18 10:27 Dose: Not Given Documented by: Metoprolol Tartrate (Lopressor) 25 mg PO Q6HR [facility] Last Admin: 11/18/18 12:59 Dose: Not Given Documented by: Ondansetron HCl (Zofran) 4 mg IV Q8H PRN PRN Reason: Nausea And Vomiting Last Admin: 11/18/18 09:57 Dose: 4 mg Documented by: Pantoprazole Sodium (Protonix) 40 mg PO DAILY [facility] Last Admin: 11/18/18 09:58 Dose: 40 mg Documented by: Polyethylene Glycol (Miralax 3350) 17 gm PO BID PRN PRN Reason: Constipation Sertraline HCl (Zoloft) 50 mg PO DAILY [facility] Last Admin: 11/18/18 09:58 Dose: 50 mg Documented by: Simethicone (Mylicon) 80 mg PO Q6H PRN PRN Reason: Gas pain Last Admin: 11/15/18 04:05 Dose: 80 mg Documented by: Sucralfate (Carafate) 1 gm PO [facility] Last Admin: 11/18/18 12:59 Dose: Not Given Documented by: Tramadol HCl (Ultram) 50 mg PO Q6H PRN PRN Reason: Pain, Moderate (4-6) Last Admin: 11/18/18 02:47 Dose: 50 mg Documented by: Objective Vital Signs - 12hr 11/18/18 11/18/18 11/18/18 05:44 07:42 08:52 Temperature 97.0 F L Pulse Rate 82 84 Pulse Rate [ From Monitor] Respiratory 24 Rate Blood Pressure 137/77 114/77 Blood Pressure 94/58 [Left] O2 Sat by Pulse 96 100 Oximetry 11/18/18 11/18/18 12:06 14:52 Temperature 97.3 F L Pulse Rate 81 Pulse Rate [ 81 From Monitor] Respiratory 22 18 Rate Blood Pressure 92/70 Blood Pressure [Left] O2 Sat by Pulse 98 100 Oximetry Constitutional: no acute distress, alert, other (obese) Eyes: non-icteric ENT: oropharynx moist Neck: supple Effort: normal Ascultation: Bilateral: clear (anteriorly, decreased due to obesity) Percussion: Bilateral: not dull Cardiovascular: regular rate and rhythm (no mrg) Gastrointestinal: normoactive bowel sounds, soft, non-tender, non-distended Integumentary: normal Extremities: pink and warm, edema (2+ bilateral LE edema) Neurologic: normal mental status, non-focal exam, pupils equal and round, CN II- XII normal Psychiatric: mood appropriate, affect normal CBC and BMP: 11/18/18 04:45 11/18/18 04:45 ABG, PT/INR, D-dimer: ABG POC ABG pH 7.507 (7.35-7.45) H 11/16/18 03:53 POC ABG pCO2 34.9 (35-45) L 11/16/18 03:53 POC ABG pO2 133 (80-105) H 11/16/18 03:53 POC ABG HCO3 27.6 (22-26 mml/L) 11/16/18 03:53 POC ABG Total CO2 29 (23-27mmol/L) 11/16/18 03:53 POC ABG O2 Sat 99 11/16/18 03:53 PT/INR, D-dimer PT 18.6 Sec. (12.2-14.9) H 11/15/18 18:41 INR 1.59 (0.87-1.13) H 11/15/18 18:41 Abnormal lab findings: Abnormal Labs 11/08/18 11/08/18 11/08/18 03:09 03:09 05:50 RBC 3.37 L MCV 106 H MCH 34 H RDW 17.1 H Lymph % (Auto) 4.6 L [place] % (Auto) 11.5 H Lymph # 0.2 L Seg Neutrophils % 83.0 H PT INR POC ABG pH POC ABG pCO2 POC ABG pO2 Sodium 135 L Potassium Chloride Carbon Dioxide BUN 29 H Creatinine 1.4 H Glucose POC Glucose Calcium 8.1 L Phosphorus Total Creatine Kinase CK-MB (CK-2) Troponin T 0.042 H 0.039 H Total Protein Albumin LDL Cholesterol Direct 137 H HDL Cholesterol 33 L Lipase Urine Creatinine Urine Total Protein 11/10/18 11/10/18 11/10/18 05:47 07:32 13:08 RBC MCV MCH RDW Lymph % (Auto) [place] % (Auto) Lymph # Seg Neutrophils % PT INR POC ABG pH POC ABG pCO2 POC ABG pO2 Sodium Potassium Chloride Carbon Dioxide 32 H BUN 25 H Creatinine Glucose 104 H POC Glucose 115 H 142 H Calcium 7.9 L Phosphorus Total Creatine Kinase CK-MB (CK-2) Troponin T Total Protein Albumin LDL Cholesterol Direct HDL Cholesterol Lipase Urine Creatinine Urine Total Protein 11/10/18 11/10/18 11/11/18 16:55 21:21 07:51 RBC MCV MCH RDW Lymph % (Auto) [place] % (Auto) Lymph # Seg Neutrophils % PT INR POC ABG pH POC ABG pCO2 POC ABG pO2 Sodium Potassium Chloride Carbon Dioxide BUN Creatinine Glucose POC Glucose 125 H 126 H 118 H Calcium Phosphorus Total Creatine Kinase CK-MB (CK-2) Troponin T Total Protein Albumin LDL Cholesterol Direct HDL Cholesterol Lipase Urine Creatinine Urine Total Protein 11/11/18 11/11/18 11/12/18 12:25 21:32 07:46 RBC MCV MCH RDW Lymph % (Auto) [place] % (Auto) Lymph # Seg Neutrophils % PT INR POC ABG pH POC ABG pCO2 POC ABG pO2 Sodium Potassium Chloride 97.7 L Carbon Dioxide BUN 28 H Creatinine Glucose POC Glucose 125 H 126 H Calcium 8.0 L Phosphorus Total Creatine Kinase CK-MB (CK-2) Troponin T Total Protein Albumin LDL Cholesterol Direct HDL Cholesterol Lipase Urine Creatinine Urine Total Protein 11/12/18 11/12/18 11/13/18 08:57 11:35 05:38 RBC MCV MCH RDW Lymph % (Auto) [place] % (Auto) Lymph # Seg Neutrophils % PT INR POC ABG pH POC ABG pCO2 POC ABG pO2 Sodium Potassium Chloride 97.3 L Carbon Dioxide 31 H BUN 33 H Creatinine 1.5 H Glucose 111 H POC Glucose 120 H 137 H Calcium 7.8 L Phosphorus Total Creatine Kinase CK-MB (CK-2) Troponin T Total Protein Albumin LDL Cholesterol Direct HDL Cholesterol Lipase Urine Creatinine Urine Total Protein 11/13/18 11/14/18 11/15/18 05:38 06:07 06:11 RBC MCV MCH RDW Lymph % (Auto) [place] % (Auto) Lymph # Seg Neutrophils % PT INR POC ABG pH POC ABG pCO2 POC ABG pO2 Sodium 135 L Potassium Chloride 96.8 L Carbon Dioxide BUN 36 H Creatinine 1.9 H Glucose 117 H POC Glucose 128 H Calcium 8.2 L Phosphorus Total Creatine Kinase CK-MB (CK-2) Troponin T Total Protein Albumin LDL Cholesterol Direct HDL Cholesterol Lipase 11 L Urine Creatinine Urine Total Protein 11/15/18 11/15/18 11/15/18 08:50 18:41 18:41 RBC 3.51 L MCV 103 H MCH 34 H RDW 17.4 H Lymph % (Auto) 3.3 L [place] % (Auto) 9.2 H Lymph # 0.2 L Seg Neutrophils % 87.2 H PT INR POC ABG pH 7.533 H POC ABG pCO2 33.9 L POC ABG pO2 237 H Sodium 136 L Potassium Chloride 95.3 L Carbon Dioxide BUN 46 H Creatinine 2.3 H Glucose POC Glucose Calcium 8.3 L Phosphorus Total Creatine Kinase CK-MB (CK-2) Troponin T Total Protein 4.6 L Albumin 1.8 L LDL Cholesterol Direct HDL Cholesterol Lipase Urine Creatinine Urine Total Protein 11/15/18 11/15/18 11/16/18 18:41 18:41 03:53 RBC MCV MCH RDW Lymph % (Auto) [place] % (Auto) Lymph # Seg Neutrophils % PT 18.6 H INR 1.59 H POC ABG pH 7.507 H POC ABG pCO2 34.9 L POC ABG pO2 133 H Sodium Potassium Chloride Carbon Dioxide BUN Creatinine Glucose POC Glucose Calcium Phosphorus Total Creatine Kinase 293 H CK-MB (CK-2) 5.6 H Troponin T 2.830 H* Total Protein Albumin LDL Cholesterol Direct HDL Cholesterol Lipase Urine Creatinine Urine Total Protein 11/16/18 11/16/18 11/16/18 05:35 05:35 09:26 RBC 3.44 L MCV 103 H MCH 34 H RDW 17.3 H Lymph % (Auto) 2.5 L [place] % (Auto) 9.3 H Lymph # 0.2 L Seg Neutrophils % 87.9 H PT INR POC ABG pH POC ABG pCO2 POC ABG pO2 Sodium 135 L Potassium Chloride 95.9 L Carbon Dioxide BUN 47 H Creatinine 2.2 H Glucose POC Glucose Calcium 8.1 L Phosphorus 4.60 H Total Creatine Kinase CK-MB (CK-2) Troponin T Total Protein Albumin LDL Cholesterol Direct HDL Cholesterol Lipase Urine Creatinine 103.3 H Urine Total Protein 11/16/18 11/17/18 11/18/18 09:26 10:42 04:45 RBC 3.41 L 3.50 L MCV 104 H 104 H MCH 34 H 34 H RDW 17.4 H 17.7 H Lymph % (Auto) 4.1 L 4.9 L [place] % (Auto) 9.8 H 7.6 H Lymph # 0.2 L 0.3 L Seg Neutrophils % 85.8 H 87.1 H PT INR POC ABG pH POC ABG pCO2 POC ABG pO2 Sodium Potassium Chloride Carbon Dioxide BUN Creatinine Glucose POC Glucose Calcium Phosphorus Total Creatine Kinase CK-MB (CK-2) Troponin T Total Protein Albumin LDL Cholesterol Direct HDL Cholesterol Lipase Urine Creatinine 102.6 H Urine Total Protein 28 H 11/18/18 04:45 RBC MCV MCH RDW Lymph % (Auto) [place] % (Auto) Lymph # Seg Neutrophils % PT INR POC ABG pH POC ABG pCO2 POC ABG pO2 Sodium Potassium 3.5 L Chloride 95.9 L Carbon Dioxide BUN 58 H Creatinine 2.7 H Glucose 137 H POC Glucose Calcium 7.7 L Phosphorus 5.00 H Total Creatine Kinase CK-MB (CK-2) Troponin T Total Protein Albumin LDL Cholesterol Direct HDL Cholesterol Lipase Urine Creatinine Urine Total Protein Chest x-ray: report reviewed, image reviewed
[2018-11-18 21:34] LABS: Hematocrit 37.4 % (30.3-42.9); Hemoglobin 12.3 gm/dl (10.1-14.3)
[2018-11-19] MEDS: LOPRESSOR PO SCH ×3 (01:04→19:05)
--- NOTE | 2018-11-19 05:19 | Event Note ---
Positive for blood per rectum, hold elienriqueis, consultGI
[2018-11-19] MEDS: BUMEX PO SCH (05:27)
[2018-11-19 07:21] LABS: Basophils % (Auto) 0.6 % (0.0-1.8); Hematocrit 38.1 % (30.3-42.9); Hemoglobin 12.6 gm/dl (10.1-14.3); Lymphocytes # (Auto) 0.3 K/mm3 (1.2-5.4); Mean Corpuscular HGB Conc 33 % (30-34); Mean Corpuscular Volume 105 fl (79-97); Monocytes # (Auto) 0.5 K/mm3 (0.0-0.8); Monocytes % (Auto) 6.1 % (0.0-7.3); Platelet Count 272 K/mm3 (140-440); Red Blood Count 3.63 M/mm3 (3.65-5.03); Red Cell Distribution Width 17.2 % (13.2-15.2)
[2018-11-19] MEDS: CARAFATE PO SCH ×4 (08:30→21:02)
[2018-11-19] MEDS ORDERED: FLUSH HEPARIN IV ONE ×3 (10:27→13:53)
--- NOTE | 2018-11-19 11:10 | Gastroenterology Consultation ---
History of Present Illness - Reason for Consult Consult date: 11/19/18 bloody stools Requesting physician: MINAL SOLIS - History of Present Illness Patient is a 68 y/o female with PMH of HTN, CVA, CAD, CHF (s/p AICD), Afib (on Eliquis), DVT, morbid obesity, and COPD who was admitted for acute on chronic systolic heart failure (EF 10-15%), acute on chronic respiratory failure, and is s/p PEA cardiac arrest 11/15/18 with 2/2 KERWIN. Now extubated (11/16) and off pressor support. GI has been consulted for bloody stools that developed overnight. Patient is previously known to our service from prior hospitalizations for N/V, abd pain, and CGE with last EGD 05/26/18 that showed medium hiatal hernia, moderate gastritis with ulceration, and moderate duodenitis (bx negative). This morning patient was resting in bed w/o acute distress but chronically ill appearing. Nursing reports multiple BMs overnight and this am with blood in stool. Upon exam, rectal revealed maroon blood. No hematemeiss. Admits to chronic generalized abd pain that is unchanged in characteristic from prior hospitaliztion/workup 09/2018. Denies fever, wt loss, active CP, N/V, diarrhea, or constipation. Has no prior hx of LGIB or liver disease. States she had a colonoscopy within the last few years at [facility] with negative results per pt (records unavailable). Abd CT 09/27/18 reviewed. Past History Past Medical History: other (as per HPI) Past Surgical History: PTCA, Other (s/p AICD) Social history: smoking. denies: alcohol abuse Family history: no significant family history Medications and Allergies Allergies Allergy/AdvReac Type Severity Reaction Status Date / Time lisinopril Allergy Anaphylaxis Verified 02/24/18 09:15 Penicillins Allergy Seizure Verified 02/24/18 09:15 Sulfa (Sulfonamide AdvReac Hives Verified 02/24/18 09:15 Antibiotics) Home Medications Medication Instructions Recorded Confirmed Last Taken Type Aspirin [Adult Aspirin] 81 mg PO DAILY 02/24/18 11/08/18 05/09/18 History Spironolactone [Aldactone] 25 mg PO QDAY 02/24/18 11/08/18 05/09/18 History buPROPion SR [Wellbutrin SR] 150 mg PO BID 02/24/18 11/08/18 05/09/18 History Albuterol Sulfate [Ventolin HFA] 1 puff IH Q6H PRN 30 Days 03/03/18 11/08/18 05/09/18 Rx [email or web address] Cyclobenzaprine [Flexeril 10 MG 10 mg PO TID PRN 05/10/18 11/08/18 05/09/18 History TAB] Diphenhydramine HCl [Allergy 25 mg PO DAILY 05/10/18 11/08/18 05/09/18 History Relief] ISOSORBIDE MONOnitrate [Imdur ER] 60 mg PO QDAY 05/10/18 11/08/18 05/09/18 History Sertraline HCl [Zoloft] 50 mg PO DAILY 05/10/18 11/08/18 05/09/18 History hydrALAZINE [Apresoline TAB] 25 mg PO Q8HR 05/10/18 11/08/18 05/09/18 History Apixaban [Eliquis] 5 mg PO Q12HR #60 tablet 07/02/18 11/08/18 Unknown Rx Pantoprazole [Protonix TAB] 40 mg PO QDAY #30 tablet 07/02/18 11/08/18 Unknown Rx Polyethylene Glycol 3350 [Miralax 17 gm PO BID PRN #30 powd.pack 07/02/18 11/08/18 Unknown Rx 3350] Carvedilol [Coreg] 3.125 mg PO BID #60 tablet 09/10/18 11/08/18 Unknown Rx Magnesium Oxide [Mag-Ox] 400 mg PO QDAY #7 tablet 10/04/18 11/08/18 Unknown Rx Potassium Chloride [K-Dur] 20 meq PO QDAY #7 tablet 10/04/18 11/08/18 Unknown Rx Torsemide [Demadex] 40 mg PO BID #60 tablet 10/04/18 11/08/18 Unknown Rx metOLazone [Zaroxolyn] 5 mg PO QDAY #30 tablet 10/04/18 11/08/18 Unknown Rx Active Meds: Active Medications Albuterol (Proventil) 2.5 mg IH Q4HRT PRN PRN Reason: Shortness Of Breath Last Admin: 11/17/18 21:42 Dose: 2.5 mg Documented by: Amiodarone HCl (Cordarone) 200 mg PO BID [facility] Last Admin: 11/18/18 22:53 Dose: 200 mg Documented by: Aspirin (Halfprin Ec) 81 mg PO DAILY [facility] Last Admin: 11/18/18 09:58 Dose: 81 mg Documented by: Atorvastatin Calcium (Lipitor) 40 mg PO QHS [facility] Last Admin: 11/18/18 22:54 Dose: 40 mg Documented by: Bumetanide (Bumex) 1 mg PO 0600,1800 [facility] Last Admin: 11/19/18 05:27 Dose: 1 mg Documented by: Bupropion HCl (Wellbutrin Sr) 150 mg PO BID [facility] Last Admin: 11/18/18 22:54 Dose: 150 mg Documented by: Magnesium Oxide (Mag-Ox) 400 mg PO QDAY [facility] Last Admin: 11/18/18 10:27 Dose: Not Given Documented by: Metoprolol Tartrate (Lopressor) 25 mg PO Q6HR [facility] Last Admin: 11/19/18 05:27 Dose: 25 mg Documented by: Ondansetron HCl (Zofran) 4 mg IV Q8H PRN PRN Reason: Nausea And Vomiting Last Admin: 11/18/18 17:51 Dose: 4 mg Documented by: Pantoprazole Sodium (Protonix) 40 mg PO DAILY [facility] Last Admin: 11/18/18 09:58 Dose: 40 mg Documented by: Polyethylene Glycol (Miralax 3350) 17 gm PO BID PRN PRN Reason: Constipation Sertraline HCl (Zoloft) 50 mg PO DAILY [facility] Last Admin: 11/18/18 09:58 Dose: 50 mg Documented by: Simethicone (Mylicon) 80 mg PO Q6H PRN PRN Reason: Gas pain Last Admin: 11/15/18 04:05 Dose: 80 mg Documented by: Sucralfate (Carafate) 1 gm PO ACHS [facility] Last Admin: 11/19/18 08:30 Dose: 1 gm Documented by: medications reviewed/updated as required Review of Systems - Review of Systems All systems: negative Gastrointestinal: abdominal pain (chronic; generalized), other (blood in stool) Exam - Constitutional Vital Signs: Temp Pulse Resp BP Pulse Ox 98.2 F 52 L 20 107/75 92 11/19/18 08:51 11/19/18 08:51 11/19/18 08:51 11/19/18 08:51 11/19/18 08:51 General appearance: no acute distress, obese, other (chronically ill appearing) - Respiratory Respiratory effort: normal Respiratory: bilateral: diminished - Cardiovascular Rhythm: other (irregular) - Gastrointestinal General gastrointestinal: Present: soft, non-tender (slight generalized TTP), non-distended, normal bowel sounds Rectal Exam: other (maroon stool- paperhanger pipe present during exam (Tyler MARIO)) - Neurologic Neurological: alert and oriented x3 - Labs CBC & Chem 7: 11/19/18 06:48 11/19/18 06:48 Lab Results: Laboratory Results - last 24 hr 11/18/18 11/18/18 11/19/18 04:45 21:07 06:48 WBC 8.3 RBC 3.63 L Hgb 12.3 12.6 Hct 37.4 38.1 MCV 105 H MCH 35 H MCHC 33 RDW 17.2 H Plt Count 272 Lymph % (Auto) 4.0 L [place] % (Auto) 6.1 Eos % (Auto) 0.0 Baso % (Auto) 0.6 Lymph # 0.3 L [place] # 0.5 Eos # 0.0 Baso # 0.0 Seg Neutrophils % 89.3 H Seg Neutrophils # 7.4 Sodium Potassium Chloride Carbon Dioxide Anion Gap BUN Creatinine Estimated GFR BUN/Creatinine Ratio Glucose Calcium Phosphorus Magnesium 1.90 11/19/18 06:48 WBC RBC Hgb Hct MCV MCH MCHC RDW Plt Count Lymph % (Auto) [place] % (Auto) Eos % (Auto) Baso % (Auto) Lymph # [place] # Eos # Baso # Seg Neutrophils % Seg Neutrophils # Sodium 135 L Potassium 4.4 D Chloride 95.4 L Carbon Dioxide 26 Anion Gap 18 BUN 64 H Creatinine 3.3 H Estimated GFR 17 BUN/Creatinine Ratio 19 Glucose 102 H Calcium 8.0 L Phosphorus 6.10 H D Magnesium Assessment and Plan 1.GI bleed -H/H 12.6/38.1 -continue to monitor H/H and transfuse as needed -nursing reports multiple BMs overnight and this am with blood in stool. Rectal exam revealed maroon blood. No hematemesis. -currently HD stable -last EGD 05/16/2018 showed medium hiatal hernia, moderate gastritis with ulceration, and moderate duodenitis (bx negative) -had a colonoscopy within the last few years at [facility] with negative results per pt report (records unavailable) -abd CT 09/27/18-ascites (likely cardiac in origin), cardiomegaly, and dinesh pleural effusions -etiology unclear -will order a stat bleeding scan for further evaluation -consider scope based on progress, however patient is high risk due to comorbidities -hold blood thinning medications including Eliquis (cardiology aware) -continue PPI and supportive care -further recommendations to follow bleeding scan results 2.Acute on Chronic systolic heart failure 3.s/p Cardiopulmonary arrest 11/15 4.KERWIN 5.acute on chronic respiratory failure (COPD) 6.Hx of LUE DVT 7.Hx of coronary artery disease 8.Hx of Ischemic cardiomyopathy -s/p AICD; EF 10-15% 9.A.fib
--- NOTE | 2018-11-19 11:14 | Progress Note ---
<SAURAV PITT - Last Filed: 11/19/18 11:10> Assessment and Plan Acute on Chronic systolic heart failure Suspect non-compliance Multiple HF admission Lower GI bleed -GI workup is in progress. s/p Cardiopulmonary arrest 11/15 device interrogation revealed no activity Acute renal failure Ascites Patient had paracentesis in previous admissions Hx of LUE DVT Hx of coronary artery disease cardiac cath 03/2018 revealed patent SVG to LAD, patent SVG to OM, patent SVG to PDA and patent diagonal stent, LVEF 10-15%. Non-specific troponin Hx of Ischemic cardiomyopathy ejection fraction 10-15% by echo 08/2018 Presence of single chamber cardiac defibrillator underlying paroxysmal atrial fibrillation. Eliquis discontinued due to lower GI bleed. on amiodarone and metoprolol for suppression. Tobacco abuse Recommendations: Fluid/sodium restriction. Daily weight. Continue medical therapy for paroxysmal atrial fibrillation, ischemic cardiomyopathy and chronic systolic heart failure. Subjective Date of service: 11/19/18 Principal diagnosis: Chest pain for 3 days Interval history: Patient is resting in bed comfortably. Reports of bloody stools overnight. H&H is stable. Eliquis has been discontinued. No reported events on telemetry overnight. Objective Vital Signs Temp Pulse Pulse Pulse Resp BP BP 11/19/18 08:51 98.2 F 52 L 20 107/75 11/19/18 05:27 73 129/89 11/19/18 03:48 98.0 F 73 18 129/89 11/19/18 02:49 73 18 11/19/18 01:04 65 106/77 11/19/18 00:05 98.0 F 65 18 106/77 11/18/18 23:40 76 17 11/18/18 22:30 76 76 18 11/18/18 20:04 11/18/18 19:24 77 11/18/18 19:07 98.0 F 76 20 92/62 11/18/18 17:56 97.5 F L 81 18 117/66 11/18/18 17:47 81 117/66 11/18/18 17:27 74 11/18/18 14:52 81 18 11/18/18 12:06 97.3 F L 81 22 92/70 Pulse Ox 11/19/18 08:51 92 11/19/18 05:27 11/19/18 03:48 98 11/19/18 02:49 94 11/19/18 01:04 11/19/18 00:05 100 11/18/18 23:40 100 11/18/18 22:30 100 11/18/18 20:04 100 11/18/18 19:24 11/18/18 19:07 100 11/18/18 17:56 100 11/18/18 17:47 11/18/18 17:27 99 11/18/18 14:52 100 11/18/18 12:06 98 - Physical Examination General: No Apparent Distress HEENT: Positive: PERRL Neck: Positive: trachea midline Cardiac: Positive: irregularly irregular Lungs: Positive: Decreased Breath Sounds Neuro: Positive: Grossly Intact Extremities: Present: +1 Edema - Labs and Meds CBC 11/18/18 11/19/18 Range/Units 21:07 06:48 WBC 8.3 (4.5-11.0) K/mm3 RBC 3.63 L (3.65-5.03) M/mm3 Hgb 12.3 12.6 (10.1-14.3) gm/dl Hct 37.4 38.1 (30.3-42.9) % Plt Count 272 (140-440) K/mm3 Lymph # 0.3 L (1.2-5.4) K/mm3 [place] # 0.5 (0.0-0.8) K/mm3 Eos # 0.0 (0.0-0.4) K/mm3 Baso # 0.0 (0.0-0.1) K/mm3 Comprehensive Metabolic Panel 11/19/18 Range/Units 06:48 Sodium 135 L (137-145) mmol/L Potassium 4.4 D (3.6-5.0) mmol/L Chloride 95.4 L (98-107) mmol/L Carbon Dioxide 26 (22-30) mmol/L BUN 64 H (7-17) mg/dL Creatinine 3.3 H (0.7-1.2) mg/dL Glucose 102 H (65-100) mg/dL Calcium 8.0 L (8.4-10.2) mg/dL <MAURI ARTEAGA - Last Filed: 11/19/18 12:59> Assessment and Plan I seen and evaluated the patient and agree with the assessment and plan. Patient has a history of chronic systolic heart failure, coronary artery disease status post bypass, and ischemic cardiomyopathy with ejection fraction 10-15%. At this time recommend continued fluid restriction as well as sodium restriction. Continue medical therapy for treatment of coronary artery disease and ischemic cardiomyopathy. Paroxysmal atrial fibrillation is treated with rate control strategy. Patient is currently off anticoagulation due to GI bleed. Objective Vital Signs Temp Pulse Pulse Pulse Resp BP BP 11/19/18 12:11 75/48 11/19/18 12:04 86/52 11/19/18 09:01 98.2 F 20 11/19/18 08:51 98.2 F 52 L 20 107/75 11/19/18 05:27 73 129/89 11/19/18 03:48 98.0 F 73 18 129/89 11/19/18 02:49 73 18 11/19/18 01:04 65 106/77 11/19/18 00:05 98.0 F 65 18 106/77 11/18/18 23:40 76 17 11/18/18 22:30 76 76 18 11/18/18 20:04 11/18/18 19:24 77 11/18/18 19:07 98.0 F 76 20 92/62 11/18/18 17:56 97.5 F L 81 18 117/66 11/18/18 17:47 81 117/66 11/18/18 17:27 74 11/18/18 14:52 81 18 Pulse Ox 11/19/18 12:11 11/19/18 12:04 75 L 11/19/18 09:01 11/19/18 08:51 92 11/19/18 05:27 11/19/18 03:48 98 11/19/18 02:49 94 11/19/18 01:04 11/19/18 00:05 100 11/18/18 23:40 100 11/18/18 22:30 100 11/18/18 20:04 100 11/18/18 19:24 11/18/18 19:07 100 11/18/18 17:56 100 11/18/18 17:47 11/18/18 17:27 99 11/18/18 14:52 100 - Labs and Meds CBC 11/18/18 11/19/18 11/19/18 Range/Units 21:07 06:48 Unknown WBC 8.3 (4.5-11.0) K/mm3 RBC 3.63 L (3.65-5.03) M/mm3 Hgb 12.3 12.6 12.2 (10.1-14.3) gm/dl Hct 37.4 38.1 37.0 (30.3-42.9) % Plt Count 272 (140-440) K/mm3 Lymph # 0.3 L (1.2-5.4) K/mm3 [place] # 0.5 (0.0-0.8) K/mm3 Eos # 0.0 (0.0-0.4) K/mm3 Baso # 0.0 (0.0-0.1) K/mm3 Comprehensive Metabolic Panel 11/19/18 Range/Units 06:48 Sodium 135 L (137-145) mmol/L Potassium 4.4 D (3.6-5.0) mmol/L Chloride 95.4 L (98-107) mmol/L Carbon Dioxide 26 (22-30) mmol/L BUN 64 H (7-17) mg/dL Creatinine 3.3 H (0.7-1.2) mg/dL Glucose 102 H (65-100) mg/dL Calcium 8.0 L (8.4-10.2) mg/dL
[2018-11-19] MEDS ORDERED: NACL 0.9% 1000 ML 1,000 ML IV ONE (12:15)
[2018-11-19] MEDS: WELLBUTRIN SR PO SCH ×2 (12:30→21:03)
[2018-11-19] MEDS: MAG-OX PO SCH (12:30)
[2018-11-19] MEDS: ZOLOFT PO SCH (12:30)
[2018-11-19] MEDS: PROTONIX PO SCH (12:30)
[2018-11-19 12:43] LABS: Hemoglobin 12.2 gm/dl (10.1-14.3)
--- NOTE | 2018-11-19 13:15 | Progress Note ---
Assessment and Plan Imp: 1. S/p CP arrest of ? etiology 2. ICMP 3. A/C systolic CHF 4. KERWIN 5. Morbid obesity 6. HUNTER, noncompliant w/ CPAP 7. CAD 8. GI bleed Rec: 1. Cardiac optimization per cardiology 2. Cont. BIPAP QHS; patient noncompliant with CPAP chronically per above, apparently lost her machine at some point; recommend repeating sleep studies as an outpatient to get a new machine, or see if her hospice agency could get her one 3. Weight loss 4. Current chest pain is musculoskeletal and likely due to chest compressions 5. Renal following re: worsening KERWIN 6. Try to mobilize; will follow with you, currently stable pulm-recinos 7. Type and screen; H/H trend; F/u GI recs; monitor BP s/p bolus, etc. Plan of care reviewed w/ patient, she understands/agrees Subjective Date of service: 11/19/18 Principal diagnosis: Chest pain for 3 days Interval history: On O2 by nasal cannula now. SOB stable. Has had LGIB bleeding, seen by GI. Eliquis stopped. H/H has been stable. BP low, receiving NS bolus. Active Medications Albuterol (Proventil) 2.5 mg IH Q4HRT PRN PRN Reason: Shortness Of Breath Last Admin: 11/17/18 21:42 Dose: 2.5 mg Documented by: Amiodarone HCl (Cordarone) 200 mg PO BID [facility] Last Admin: 11/18/18 22:53 Dose: 200 mg Documented by: Aspirin (Halfprin Ec) 81 mg PO DAILY [facility] Last Admin: 11/18/18 09:58 Dose: 81 mg Documented by: Atorvastatin Calcium (Lipitor) 40 mg PO QHS [facility] Last Admin: 11/18/18 22:54 Dose: 40 mg Documented by: Bumetanide (Bumex) 1 mg PO 0600,1800 [facility] Last Admin: 11/19/18 05:27 Dose: 1 mg Documented by: Bupropion HCl (Wellbutrin Sr) 150 mg PO BID [facility] Last Admin: 11/18/18 22:54 Dose: 150 mg Documented by: Hydromorphone HCl (Dilaudid) 0.5 mg IV Q3H PRN PRN Reason: Pain , Severe (7-10) Magnesium Oxide (Mag-Ox) 400 mg PO QDAY [facility] Last Admin: 11/18/18 10:27 Dose: Not Given Documented by: Metoprolol Tartrate (Lopressor) 25 mg PO Q6HR [facility] Last Admin: 11/19/18 05:27 Dose: 25 mg Documented by: Ondansetron HCl (Zofran) 4 mg IV Q8H PRN PRN Reason: Nausea And Vomiting Last Admin: 11/18/18 17:51 Dose: 4 mg Documented by: Pantoprazole Sodium (Protonix) 40 mg PO DAILY [facility] Last Admin: 11/18/18 09:58 Dose: 40 mg Documented by: Polyethylene Glycol (Miralax [id number]) 17 gm PO BID PRN PRN Reason: Constipation Sertraline HCl (Zoloft) 50 mg PO DAILY [facility] Last Admin: 11/18/18 09:58 Dose: 50 mg Documented by: Simethicone (Mylicon) 80 mg PO Q6H PRN PRN Reason: Gas pain Last Admin: 11/15/18 04:05 Dose: 80 mg Documented by: Sucralfate (Carafate) 1 gm PO ACHS [facility] Last Admin: 11/19/18 08:30 Dose: 1 gm Documented by: Objective Vital Signs - 12hr 11/19/18 11/19/18 11/19/18 02:49 03:48 05:27 Temperature 98.0 F Pulse Rate 73 73 73 Respiratory 18 18 Rate Blood Pressure 129/89 129/89 O2 Sat by Pulse 94 98 Oximetry 11/19/18 11/19/18 11/19/18 08:51 09:01 12:04 Temperature 98.2 F 98.2 F Pulse Rate 52 L Respiratory 20 20 Rate Blood Pressure 107/75 86/52 O2 Sat by Pulse 92 75 L Oximetry 11/19/18 12:11 Temperature Pulse Rate Respiratory Rate Blood Pressure 75/48 O2 Sat by Pulse Oximetry Constitutional: no acute distress, alert, other (obese) Eyes: non-icteric ENT: oropharynx moist Neck: supple Effort: normal Ascultation: Bilateral: clear (anteriorly, decreased due to obesity) Percussion: Bilateral: not dull Cardiovascular: regular rate and rhythm (no mrg) Gastrointestinal: normoactive bowel sounds, soft, non-tender, non-distended Integumentary: normal Extremities: pink and warm, edema (2+ bilateral LE edema) Neurologic: normal mental status, non-focal exam, pupils equal and round, CN II- XII normal Psychiatric: mood appropriate, affect normal CBC and BMP: 11/19/18 Unknown 11/19/18 06:48 ABG, PT/INR, D-dimer: ABG POC ABG pH 7.507 (7.35-7.45) H 11/16/18 03:53 POC ABG pCO2 34.9 (35-45) L 11/16/18 03:53 POC ABG pO2 133 (80-105) H 11/16/18 03:53 POC ABG HCO3 27.6 (22-26 mml/L) 11/16/18 03:53 POC ABG Total CO2 29 (23-27mmol/L) 11/16/18 03:53 POC ABG O2 Sat 99 11/16/18 03:53 PT/INR, D-dimer PT 18.6 Sec. (12.2-14.9) H 11/15/18 18:41 INR 1.59 (0.87-1.13) H 11/15/18 18:41 Abnormal lab findings: Abnormal Labs 11/08/18 11/08/18 11/08/18 03:09 03:09 05:50 RBC 3.37 L MCV 106 H MCH 34 H RDW 17.1 H Lymph % (Auto) 4.6 L [place] % (Auto) 11.5 H Lymph # 0.2 L Seg Neutrophils % 83.0 H PT INR POC ABG pH POC ABG pCO2 POC ABG pO2 Sodium 135 L Potassium Chloride Carbon Dioxide BUN 29 H Creatinine 1.4 H Glucose POC Glucose Calcium 8.1 L Phosphorus Total Creatine Kinase CK-MB (CK-2) Troponin T 0.042 H 0.039 H Total Protein Albumin LDL Cholesterol Direct 137 H HDL Cholesterol 33 L Lipase Urine Creatinine Urine Total Protein 11/10/18 11/10/18 11/10/18 05:47 07:32 13:08 RBC MCV MCH RDW Lymph % (Auto) [place] % (Auto) Lymph # Seg Neutrophils % PT INR POC ABG pH POC ABG pCO2 POC ABG pO2 Sodium Potassium Chloride Carbon Dioxide 32 H BUN 25 H Creatinine Glucose 104 H POC Glucose 115 H 142 H Calcium 7.9 L Phosphorus Total Creatine Kinase CK-MB (CK-2) Troponin T Total Protein Albumin LDL Cholesterol Direct HDL Cholesterol Lipase Urine Creatinine Urine Total Protein 11/10/18 11/10/18 11/11/18 16:55 21:21 07:51 RBC MCV MCH RDW Lymph % (Auto) [place] % (Auto) Lymph # Seg Neutrophils % PT INR POC ABG pH POC ABG pCO2 POC ABG pO2 Sodium Potassium Chloride Carbon Dioxide BUN Creatinine Glucose POC Glucose 125 H 126 H 118 H Calcium Phosphorus Total Creatine Kinase CK-MB (CK-2) Troponin T Total Protein Albumin LDL Cholesterol Direct HDL Cholesterol Lipase Urine Creatinine Urine Total Protein 11/11/18 11/11/18 11/12/18 12:25 21:32 07:46 RBC MCV MCH RDW Lymph % (Auto) [place] % (Auto) Lymph # Seg Neutrophils % PT INR POC ABG pH POC ABG pCO2 POC ABG pO2 Sodium Potassium Chloride 97.7 L Carbon Dioxide BUN 28 H Creatinine Glucose POC Glucose 125 H 126 H Calcium 8.0 L Phosphorus Total Creatine Kinase CK-MB (CK-2) Troponin T Total Protein Albumin LDL Cholesterol Direct HDL Cholesterol Lipase Urine Creatinine Urine Total Protein 11/12/18 11/12/18 11/13/18 08:57 11:35 05:38 RBC MCV MCH RDW Lymph % (Auto) [place] % (Auto) Lymph # Seg Neutrophils % PT INR POC ABG pH POC ABG pCO2 POC ABG pO2 Sodium Potassium Chloride 97.3 L Carbon Dioxide 31 H BUN 33 H Creatinine 1.5 H Glucose 111 H POC Glucose 120 H 137 H Calcium 7.8 L Phosphorus Total Creatine Kinase CK-MB (CK-2) Troponin T Total Protein Albumin LDL Cholesterol Direct HDL Cholesterol Lipase Urine Creatinine Urine Total Protein 11/13/18 11/14/18 11/15/18 05:38 06:07 06:11 RBC MCV MCH RDW Lymph % (Auto) [place] % (Auto) Lymph # Seg Neutrophils % PT INR POC ABG pH POC ABG pCO2 POC ABG pO2 Sodium 135 L Potassium Chloride 96.8 L Carbon Dioxide BUN 36 H Creatinine 1.9 H Glucose 117 H POC Glucose 128 H Calcium 8.2 L Phosphorus Total Creatine Kinase CK-MB (CK-2) Troponin T Total Protein Albumin LDL Cholesterol Direct HDL Cholesterol Lipase 11 L Urine Creatinine Urine Total Protein 11/15/18 11/15/18 11/15/18 08:50 18:41 18:41 RBC 3.51 L MCV 103 H MCH 34 H RDW 17.4 H Lymph % (Auto) 3.3 L [place] % (Auto) 9.2 H Lymph # 0.2 L Seg Neutrophils % 87.2 H PT INR POC ABG pH 7.533 H POC ABG pCO2 33.9 L POC ABG pO2 237 H Sodium 136 L Potassium Chloride 95.3 L Carbon Dioxide BUN 46 H Creatinine 2.3 H Glucose POC Glucose Calcium 8.3 L Phosphorus Total Creatine Kinase CK-MB (CK-2) Troponin T Total Protein 4.6 L Albumin 1.8 L LDL Cholesterol Direct HDL Cholesterol Lipase Urine Creatinine Urine Total Protein 11/15/18 11/15/18 11/16/18 18:41 18:41 03:53 RBC MCV MCH RDW Lymph % (Auto) [place] % (Auto) Lymph # Seg Neutrophils % PT 18.6 H INR 1.59 H POC ABG pH 7.507 H POC ABG pCO2 34.9 L POC ABG pO2 133 H Sodium Potassium Chloride Carbon Dioxide BUN Creatinine Glucose POC Glucose Calcium Phosphorus Total Creatine Kinase 293 H CK-MB (CK-2) 5.6 H Troponin T 2.830 H* Total Protein Albumin LDL Cholesterol Direct HDL Cholesterol Lipase Urine Creatinine Urine Total Protein 11/16/18 11/16/18 11/16/18 05:35 05:35 09:26 RBC 3.44 L MCV 103 H MCH 34 H RDW 17.3 H Lymph % (Auto) 2.5 L [place] % (Auto) 9.3 H Lymph # 0.2 L Seg Neutrophils % 87.9 H PT INR POC ABG pH POC ABG pCO2 POC ABG pO2 Sodium 135 L Potassium Chloride 95.9 L Carbon Dioxide BUN 47 H Creatinine 2.2 H Glucose POC Glucose Calcium 8.1 L Phosphorus 4.60 H Total Creatine Kinase CK-MB (CK-2) Troponin T Total Protein Albumin LDL Cholesterol Direct HDL Cholesterol Lipase Urine Creatinine 103.3 H Urine Total Protein 11/16/18 11/17/18 11/18/18 09:26 10:42 04:45 RBC 3.41 L 3.50 L MCV 104 H 104 H MCH 34 H 34 H RDW 17.4 H 17.7 H Lymph % (Auto) 4.1 L 4.9 L [place] % (Auto) 9.8 H 7.6 H Lymph # 0.2 L 0.3 L Seg Neutrophils % 85.8 H 87.1 H PT INR POC ABG pH POC ABG pCO2 POC ABG pO2 Sodium Potassium Chloride Carbon Dioxide BUN Creatinine Glucose POC Glucose Calcium Phosphorus Total Creatine Kinase CK-MB (CK-2) Troponin T Total Protein Albumin LDL Cholesterol Direct HDL Cholesterol Lipase Urine Creatinine 102.6 H Urine Total Protein 28 H 11/18/18 11/19/18 11/19/18 04:45 06:48 06:48 RBC 3.63 L MCV 105 H MCH 35 H RDW 17.2 H Lymph % (Auto) 4.0 L [place] % (Auto) Lymph # 0.3 L Seg Neutrophils % 89.3 H PT INR POC ABG pH POC ABG pCO2 POC ABG pO2 Sodium 135 L Potassium 3.5 L Chloride 95.9 L 95.4 L Carbon Dioxide BUN 58 H 64 H Creatinine 2.7 H 3.3 H Glucose 137 H 102 H POC Glucose Calcium 7.7 L 8.0 L Phosphorus 5.00 H 6.10 H D Total Creatine Kinase CK-MB (CK-2) Troponin T Total Protein Albumin LDL Cholesterol Direct HDL Cholesterol Lipase Urine Creatinine Urine Total Protein Chest x-ray: report reviewed, image reviewed
--- NOTE | 2018-11-19 14:01 | Progress Note ---
Assessment and Plan Assessment and plan: Patient is a 68 year old -[place] female who was initially admitted for acute on chronic systolic heart failure. She was managed with IV milrinone drip and IV bumex by cardiology. The drip was discontinued on 11/13 while the IV Bumex was changed to oral on 11/14. Early this morning, she coded and was successfully resuscitated and transferred to the ICU ACUTE GI BLEED -keep npo, spoke with RN, asked to hold eliquis -GI consult, suspect lower GI bleed, ischemic colitis is also a differential -cannot do CTA due to elevated creatinine, and cannot do MRI due to PM, consider IR consult if symptoms persist S/p PEA cardiac arrest -Successfully resuscitated -Cardiology to follow-up Acute on chronic respiratory failure with hypoxia on MV > 96 hours extubated on 11/16, care per pulmonology cardiogenic Shock -Probably cardiogenic -off IV pressor, since 11/16, improved Acute on Chronic systolic heart failure with EF of 10-15 % -Suspect to be due to non-compliance bs of multiple HF admission -Status post single chamber cardiac defibrillator placement. -On oral bumex, BB and aldactone. Off Milrinone drip since 11/12. Not on ACEI due to allergy -Last echo was in 08/2018 -Mgx by Cardiology Paroxysmal atrial fibrillation -Rate currently controlled, meds per cardiology -eliquis now on hold given gi bleed Hx of LUE DVT -eliquis on hold due to gi bleed Hx of coronary artery disease -cardiac cath 03/2018 revealed patent SVG to LAD, patent SVG to OM, patent SVG to PDA and patent diagonal stent, LVEF 10-15%. -Continue medical management Elevated troponin on admission type 2 [place], mgt per cardiology KERWIN, likely vasomotor nephropathy, ATN and/diuretic use cr now stabilizing, nephrology following, judicious use of diuretics COPD, chronic and stable Tobacco abuse -Patient counseled on cessation > 11 minutes Morbid obesity with BMI of 42.9 -Lifestyle modification recommended -preventative health counseling >17 minutes History Interval history: per RN, she is having bloody stool, stool was just blood with no stool in it she is c/o abdominal pain on and off all day Hospitalist Physical - Physical exam Narrative exam: General appearance: Present: no acute distress, obese, o - EENT Eyes: Present: PERRL, EOM intact ENT: hearing intact, clear oral mucosa - Neck Neck: Present: supple - Respiratory Respiratory effort: normal Respiratory: bilateral: rales - Cardiovascular Rhythm: regular Heart Sounds: Present: S1 & S2 - Extremities Extremity abnormal: edema (in BLE) - Abdominal General gastrointestinal: soft, tender (Mild and generalized), normal bowel sounds - Integumentary Integumentary: Present: clear, warm, dry - Neurologic Neurologic: moves all extremities - Constitutional Vitals: Temp Pulse Resp BP Pulse Ox 98.2 F 52 L 20 75/48 75 L 11/19/18 09:01 11/19/18 08:51 11/19/18 09:01 11/19/18 12:11 11/19/18 12:04 General appearance: Present: no acute distress, obese, other (intubate, but awake) Results - Labs CBC & Chem 7: 11/22/18 05:35 11/23/18 04:22 Labs: Laboratory Last Values WBC 8.3 K/mm3 (4.5-11.0) 11/19/18 06:48 RBC 3.63 M/mm3 (3.65-5.03) L 11/19/18 06:48 Hgb 12.2 gm/dl (10.1-14.3) 11/19/18 Unknown Hct 37.0 % (30.3-42.9) 11/19/18 Unknown MCV 105 fl (79-97) H 11/19/18 06:48 MCH 35 pg (28-32) H 11/19/18 06:48 MCHC 33 % (30-34) 11/19/18 06:48 RDW 17.2 % (13.2-15.2) H 11/19/18 06:48 Plt Count 272 K/mm3 (140-440) 11/19/18 06:48 Lymph % (Auto) 4.0 % (13.4-35.0) L 11/19/18 06:48 [place] % (Auto) 6.1 % (0.0-7.3) 11/19/18 06:48 Eos % (Auto) 0.0 % (0.0-4.3) 11/19/18 06:48 Baso % (Auto) 0.6 % (0.0-1.8) 11/19/18 06:48 Lymph # 0.3 K/mm3 (1.2-5.4) L 11/19/18 06:48 [place] # 0.5 K/mm3 (0.0-0.8) 11/19/18 06:48 Eos # 0.0 K/mm3 (0.0-0.4) 11/19/18 06:48 Baso # 0.0 K/mm3 (0.0-0.1) 11/19/18 06:48 Seg Neutrophils % 89.3 % (40.0-70.0) H 11/19/18 06:48 Seg Neutrophils # 7.4 K/mm3 (1.8-7.7) 11/19/18 06:48 PT 18.6 Sec. (12.2-14.9) H 11/15/18 18:41 INR 1.59 (0.87-1.13) H 11/15/18 18:41 APTT 28.5 Sec. (24.2-36.6) 11/15/18 18:41 POC ABG pH 7.507 (7.35-7.45) H 11/16/18 03:53 POC ABG pCO2 34.9 (35-45) L 11/16/18 03:53 POC ABG pO2 133 (80-105) H 11/16/18 03:53 POC ABG HCO3 27.6 (22-26 mml/L) 11/16/18 03:53 POC ABG Total CO2 29 (23-27mmol/L) 11/16/18 03:53 POC ABG O2 Sat 99 11/16/18 03:53 POC ABG Base Excess 5 ((-2) - (+3)mmol/L) 11/16/18 03:53 40 % 11/16/18 03:53 Sodium 135 mmol/L (137-145) L 11/19/18 06:48 Potassium 4.4 mmol/L (3.6-5.0) D 11/19/18 06:48 Chloride 95.4 mmol/L (98-107) L 11/19/18 06:48 Carbon Dioxide 26 mmol/L (22-30) 11/19/18 06:48 18 mmol/L 11/19/18 06:48 BUN 64 mg/dL (7-17) H 11/19/18 06:48 3.3 mg/dL (0.7-1.2) H 11/19/18 06:48 Estimated GFR 17 ml/min 11/19/18 06:48 19 % 11/19/18 06:48 Glucose 102 mg/dL (65-100) H 11/19/18 06:48 POC Glucose 75 (70-105) 11/16/18 09:18 Calcium 8.0 mg/dL (8.4-10.2) L 11/19/18 06:48 Phosphorus 6.10 mg/dL (2.5-4.5) H D 11/19/18 06:48 Magnesium 1.90 mg/dL (1.7-2.3) 11/18/18 04:45 0.50 mg/dL (0.1-1.2) 11/15/18 18:41 AST 37 units/L (5-40) 11/15/18 18:41 ALT 15 units/L (7-56) 11/15/18 18:41 78 units/L (35-129) 11/15/18 18:41 293 units/L (30-135) H 11/15/18 18:41 CK-MB (CK-2) 5.6 ng/mL (0.0-4.0) H 11/15/18 18:41 CK-MB (CK-2) Rel Index 1.9 (0-4) 11/15/18 18:41 2.830 ng/mL (0.00-0.029) H* 11/15/18 18:41 4.6 g/dL (6.3-8.2) L 11/15/18 18:41 1.8 g/dL (3.9-5) L 11/15/18 18:41 0.6 % 11/15/18 18:41 Triglycerides 107 mg/dL (2-149) 11/08/18 03:09 Cholesterol 176 mg/dL (50-199) 11/08/18 03:09 137 mg/dL (50-130) H 11/08/18 03:09 33 mg/dL (40-59) L 11/08/18 03:09 5.33 % 11/08/18 03:09 11 units/L (13-60) L 11/13/18 05:38 Yellow (Yellow) 11/16/18 09:26 Slightly-cloudy (Clear) 11/16/18 09:26 7.0 (5.0-7.0) 11/16/18 09:26 Ur Specific [place] 1.014 (1.003-1.030) 11/16/18 09:26 <15 mg/dl mg/dL (Negative) 11/16/18 09:26 Neg mg/dL (Negative) 11/16/18 09:26 Tr mg/dL (Negative) 11/16/18 09:26 Neg (Negative) 11/16/18 09:26 Neg (Negative) 11/16/18 09:26 Neg (Negative) 11/16/18 09:26 < 2.0 mg/dL (<2.0) 11/16/18 09:26 Ur Leukocyte Esterase Neg (Negative) 11/16/18 09:26 2.0 /HPF (0.0-6.0) 11/16/18 09:26 1.0 /HPF (0.0-6.0) 11/16/18 09:26 U Epithel Cells (Auto) < 1.0 /HPF (0-13.0) 11/16/18 09:26 2+ /HPF (Negative) 11/16/18 09:26 Few /HPF 11/16/18 09:26 102.6 mg/dL (0.1-20.0) H 11/16/18 09:26 103.3 mg/dL (0.1-20.0) H 11/16/18 09:26 Protein/Creatinin Ratio 0.27 11/16/18 09:26 28 mg/dL (5-11.8) H 11/16/18 09:26 Active Medications - Current Medications Current Medications: Generic Name Dose Route Start Last Admin Trade Name Freq PRN Reason Stop Dose Admin Albuterol 2.5 mg 11/09/18 08:00 11/17/18 21:42 Proventil IH 2.5 mg Q4HRT PRN Administration Shortness Of Breath Amiodarone HCl 200 mg 11/10/18 22:00 11/18/18 22:53 Cordarone PO 200 mg BID [facility] Administration Aspirin 81 mg 11/09/18 10:00 11/18/18 09:58 Halfprin Ec PO 81 mg DAILY [facility] Administration Atorvastatin Calcium 40 mg 07/30/19 22:00 11/18/18 22:54 Lipitor PO 40 mg QHS [facility] Administration Bumetanide 1 mg 11/14/18 18:00 11/19/18 05:27 Bumex PO 1 mg 0600,1800 [facility] Administration Bupropion HCl 150 mg 11/09/18 10:00 11/18/18 22:54 Wellbutrin Sr PO 150 mg BID [facility] Administration Hydromorphone HCl 0.5 mg 11/19/18 11:21 Dilaudid IV Q3H PRN Pain , Severe (7-10) Magnesium Oxide 400 mg 11/09/18 10:00 11/18/18 10:27 Mag-Ox PO Not Given QDAY [facility] Metoprolol Tartrate 25 mg 11/18/18 12:00 11/19/18 05:27 Lopressor PO 25 mg Q6HR [facility] Administration Ondansetron HCl 4 mg 11/11/18 13:44 11/18/18 17:51 Zofran IV 4 mg Q8H PRN Administration Nausea And Vomiting Pantoprazole Sodium 40 mg 11/18/18 10:00 11/18/18 09:58 Protonix PO 40 mg DAILY [facility] Administration Polyethylene Glycol 17 gm 11/09/18 10:00 Miralax 3350 PO BID PRN Constipation Sertraline HCl 50 mg 11/09/18 10:00 11/18/18 09:58 Zoloft PO 50 mg DAILY [facility] Administration Simethicone 80 mg 11/12/18 11:49 11/15/18 04:05 Mylicon PO 80 mg Q6H PRN Administration Gas pain Sucralfate 1 gm 11/12/18 16:30 11/19/18 08:30 Carafate PO 1 gm ACHS [facility] Administration Nutrition/Malnutrition Assess - Dietary Evaluation Nutrition/Malnutrition Findings: Nutrition Notes Start: 11/14/18 15:47 Freq: Status: Active Protocol: Document 11/17/18 12:36 OH (Rec: 11/17/18 12:51 OH [id number]) Nutrition Notes Initial or Follow up Reassessment Current Diagnosis Acute Kidney Injury,Coronary Artery Disease,Heart Failure Other Pertinent Diagnosis cardiac arrest Current Diet cardiac Labs/Tests ALB 1.8 BUN 47 Cr 2.2 Na 135 Pertinent Medications Zofran Height 5 ft 7 in Weight 121.6 kg [place] Body Weight (kg) 61.36 BMI 42.0 Subjective/Other Information F/U: Pt. lying in bed. Pt. stated she was having chest pain. RN alerted by PT. Medicine recently provided to pt per RN. Pt. recommended to attend nursing rehab due to medical hx. Pt. lives in a rooming house. Fluid restriction/strict I-Os noted. Pt. cont to c/o nausea. Pt. agreeable to try Ensure but will await renal labs to further evaluate appropriateness. Percent of energy/protein needs met: 40/40% Burn Absent Trauma Absent Current % PO Poor (25-49%) Protein-Calorie Malnutrition Severe #1 Nutrition Diagnosis Inadequate oral intake Etiology decreased appetite, N/V As Evidenced by Signs and Symptoms <75% meal tray consumed Is patient on ventilator? No Is Patient Ambulatory and/or Out of Bed No REE-([facility]-confined to bed) 2133.516 Kcal/Kg value to use for calculation 14 Approximate Energy Requirements Using 1702 kcal/Kg Calculation Used for Recommendations Kcal/kg Additional Notes ABW 91.5 KGS PRO: 0.8-1.0 G/KG/ABW (73-91 g/day) FLUID: 1L-1.2 L/DAY (PER MD RECOMMENDATION) Nutrition Intervention Change Diet Order: Cont cardiac diet Goal #1 Meet at least 75% PRO/KCAL requirements via po intake Anticipated Discharge Needs: cardiac diet education/fluid restriction/CKD education Follow-Up By: 11/20/18 Additional Comments Follow for ONS initiation/po intake
--- NOTE | 2018-11-19 14:03 | Progress Note ---
Assessment and Plan Assessment and plan: Patient is a 68 year old -[place] female who was initially admitted for acute on chronic systolic heart failure. She was managed with IV milrinone drip and IV bumex by cardiology. The drip was discontinued on 11/13 while the IV Bumex was changed to oral on 11/14. Early this morning, she coded and was successfully resuscitated and transferred to the ICU ACUTE GI BLEED -keep npo, spoke with RN, asked to hold eliquis -GI consult, suspect lower GI bleed, ischemic colitis is also a differential, for bleeding scan today, Hg stable -cannot do CTA due to elevated creatinine, and cannot do MRI due to PM, consider IR consult if symptoms persist S/p PEA cardiac arrest -Successfully resuscitated -Cardiology to follow-up Acute on chronic respiratory failure with hypoxia on MV > 96 hours extubated on 11/16, care per pulmonology cardiogenic Shock -Probably cardiogenic -off IV pressor, since 11/16, improved Acute on Chronic systolic heart failure with EF of 10-15 % -Suspect to be due to non-compliance bs of multiple HF admission -Status post single chamber cardiac defibrillator placement. -On oral bumex, BB and aldactone. Off Milrinone drip since 11/12. Not on ACEI du e to allergy -Last echo was in 08/2018 -Mgx by Cardiology Paroxysmal atrial fibrillation -Rate currently controlled, meds per cardiology -eliquis now on hold given gi bleed Hx of LUE DVT -eliquis on hold due to gi bleed Hx of coronary artery disease -cardiac cath 03/2018 revealed patent SVG to LAD, patent SVG to OM, patent SVG to PDA and patent diagonal stent, LVEF 10-15%. -Continue medical management Elevated troponin on admission type 2 LA, mgt per cardiology KERWIN, likely vasomotor nephropathy, ATN and/diuretic use cr now stabilizing, nephrology following, judicious use of diuretics COPD, chronic and stable Tobacco abuse -Patient counseled on cessation > 11 minutes Morbid obesity with BMI of 42.9 -Lifestyle modification recommended -preventative health counseling >17 minutes History Interval history: per RN, she is having bloody stool, stool was just blood with no stool in it she is c/o abdominal pain on and off all day Hospitalist Physical - Physical exam Narrative exam: General appearance: Present: no acute distress, obese, o - EENT Eyes: Present: PERRL, EOM intact ENT: hearing intact, clear oral mucosa - Neck Neck: Present: supple - Respiratory Respiratory effort: normal Respiratory: bilateral: rales - Cardiovascular Rhythm: regular Heart Sounds: Present: S1 & S2 - Extremities Extremity abnormal: edema (in BLE) - Abdominal General gastrointestinal: soft, tender (Mild and generalized), normal bowel sounds - Integumentary Integumentary: Present: clear, warm, dry - Neurologic Neurologic: moves all extremities - Constitutional Vitals: Temp Pulse Resp BP Pulse Ox 98.2 F 52 L 20 75/48 75 L 11/19/18 09:01 11/19/18 08:51 11/19/18 09:01 11/19/18 12:11 11/19/18 12:04 General appearance: Present: no acute distress, obese, other (intubate, but awake) Results - Labs CBC & Chem 7: 11/22/18 05:35 11/23/18 04:22 Labs: Laboratory Last Values WBC 8.3 K/mm3 (4.5-11.0) 11/19/18 06:48 RBC 3.63 M/mm3 (3.65-5.03) L 11/19/18 06:48 Hgb 12.2 gm/dl (10.1-14.3) 11/19/18 Unknown Hct 37.0 % (30.3-42.9) 11/19/18 Unknown MCV 105 fl (79-97) H 11/19/18 06:48 MCH 35 pg (28-32) H 11/19/18 06:48 MCHC 33 % (30-34) 11/19/18 06:48 RDW 17.2 % (13.2-15.2) H 11/19/18 06:48 Plt Count 272 K/mm3 (140-440) 11/19/18 06:48 Lymph % (Auto) 4.0 % (13.4-35.0) L 11/19/18 06:48 [place] % (Auto) 6.1 % (0.0-7.3) 11/19/18 06:48 Eos % (Auto) 0.0 % (0.0-4.3) 11/19/18 06:48 Baso % (Auto) 0.6 % (0.0-1.8) 11/19/18 06:48 Lymph # 0.3 K/mm3 (1.2-5.4) L 11/19/18 06:48 [place] # 0.5 K/mm3 (0.0-0.8) 11/19/18 06:48 Eos # 0.0 K/mm3 (0.0-0.4) 11/19/18 06:48 Baso # 0.0 K/mm3 (0.0-0.1) 11/19/18 06:48 Seg Neutrophils % 89.3 % (40.0-70.0) H 11/19/18 06:48 Seg Neutrophils # 7.4 K/mm3 (1.8-7.7) 11/19/18 06:48 PT 18.6 Sec. (12.2-14.9) H 11/15/18 18:41 INR 1.59 (0.87-1.13) H 11/15/18 18:41 APTT 28.5 Sec. (24.2-36.6) 11/15/18 18:41 POC ABG pH 7.507 (7.35-7.45) H 11/16/18 03:53 POC ABG pCO2 34.9 (35-45) L 11/16/18 03:53 POC ABG pO2 133 (80-105) H 11/16/18 03:53 POC ABG HCO3 27.6 (22-26 mml/L) 11/16/18 03:53 POC ABG Total CO2 29 (23-27mmol/L) 11/16/18 03:53 POC ABG O2 Sat 99 11/16/18 03:53 POC ABG Base Excess 5 ((-2) - (+3)mmol/L) 11/16/18 03:53 40 % 11/16/18 03:53 Sodium 135 mmol/L (137-145) L 11/19/18 06:48 Potassium 4.4 mmol/L (3.6-5.0) D 11/19/18 06:48 Chloride 95.4 mmol/L (98-107) L 11/19/18 06:48 Carbon Dioxide 26 mmol/L (22-30) 11/19/18 06:48 18 mmol/L 11/19/18 06:48 BUN 64 mg/dL (7-17) H 11/19/18 06:48 3.3 mg/dL (0.7-1.2) H 11/19/18 06:48 Estimated GFR 17 ml/min 11/19/18 06:48 19 % 11/19/18 06:48 Glucose 102 mg/dL (65-100) H 11/19/18 06:48 POC Glucose 75 (70-105) 11/16/18 09:18 Calcium 8.0 mg/dL (8.4-10.2) L 11/19/18 06:48 Phosphorus 6.10 mg/dL (2.5-4.5) H D 11/19/18 06:48 Magnesium 1.90 mg/dL (1.7-2.3) 11/18/18 04:45 0.50 mg/dL (0.1-1.2) 11/15/18 18:41 AST 37 units/L (5-40) 11/15/18 18:41 ALT 15 units/L (7-56) 11/15/18 18:41 78 units/L (35-129) 11/15/18 18:41 293 units/L (30-135) H 11/15/18 18:41 CK-MB (CK-2) 5.6 ng/mL (0.0-4.0) H 11/15/18 18:41 CK-MB (CK-2) Rel Index 1.9 (0-4) 11/15/18 18:41 2.830 ng/mL (0.00-0.029) H* 11/15/18 18:41 4.6 g/dL (6.3-8.2) L 11/15/18 18:41 1.8 g/dL (3.9-5) L 11/15/18 18:41 0.6 % 11/15/18 18:41 Triglycerides 107 mg/dL (2-149) 11/08/18 03:09 Cholesterol 176 mg/dL (50-199) 11/08/18 03:09 137 mg/dL (50-130) H 11/08/18 03:09 33 mg/dL (40-59) L 11/08/18 03:09 5.33 % 11/08/18 03:09 11 units/L (13-60) L 11/13/18 05:38 Yellow (Yellow) 11/16/18 09:26 Slightly-cloudy (Clear) 11/16/18 09:26 7.0 (5.0-7.0) 11/16/18 09:26 Ur Specific [place] 1.014 (1.003-1.030) 11/16/18 09:26 <15 mg/dl mg/dL (Negative) 11/16/18 09:26 Neg mg/dL (Negative) 11/16/18 09:26 Tr mg/dL (Negative) 11/16/18 09:26 Neg (Negative) 11/16/18 09:26 Neg (Negative) 11/16/18 09:26 Neg (Negative) 11/16/18 09:26 < 2.0 mg/dL (<2.0) 11/16/18 09:26 Ur Leukocyte Esterase Neg (Negative) 11/16/18 09:26 2.0 /HPF (0.0-6.0) 11/16/18 09:26 1.0 /HPF (0.0-6.0) 11/16/18 09:26 U Epithel Cells (Auto) < 1.0 /HPF (0-13.0) 11/16/18 09:26 2+ /HPF (Negative) 11/16/18 09:26 Few /HPF 11/16/18 09:26 102.6 mg/dL (0.1-20.0) H 11/16/18 09:26 103.3 mg/dL (0.1-20.0) H 11/16/18 09:26 Protein/Creatinin Ratio 0.27 11/16/18 09:26 28 mg/dL (5-11.8) H 11/16/18 09:26 Blood Type O POSITIVE 11/19/18 Unknown Active Medications - Current Medications Current Medications: Generic Name Dose Route Start Last Admin Trade Name Freq PRN Reason Stop Dose Admin Albuterol 2.5 mg 11/09/18 08:00 11/17/18 21:42 Proventil IH 2.5 mg Q4HRT PRN Administration Shortness Of Breath Amiodarone HCl 200 mg 11/10/18 22:00 11/18/18 22:53 Cordarone PO 200 mg BID RADHA Administration Aspirin 81 mg 11/09/18 10:00 11/18/18 09:58 Halfprin Ec PO 81 mg DAILY RADHA Administration Atorvastatin Calcium 40 mg 11/11/18 22:00 11/18/18 22:54 Lipitor PO 40 mg QHS RADHA Administration Bumetanide 1 mg 11/14/18 18:00 11/19/18 05:27 Bumex PO 1 mg 0600,1800 RADHA Administration Bupropion HCl 150 mg 11/09/18 10:00 11/18/18 22:54 Wellbutrin Sr PO 150 mg BID RADHA Administration Hydromorphone HCl 0.5 mg 11/19/18 11:21 Dilaudid IV Q3H PRN Pain , Severe (7-10) Magnesium Oxide 400 mg 11/09/18 10:00 11/18/18 10:27 Mag-Ox PO Not Given QDAY RADHA Metoprolol Tartrate 25 mg 11/18/18 12:00 11/19/18 05:27 Lopressor PO 25 mg Q6HR RADHA Administration Ondansetron HCl 4 mg 11/11/18 13:44 11/18/18 17:51 Zofran IV 4 mg Q8H PRN Administration Nausea And Vomiting Pantoprazole Sodium 40 mg 11/18/18 10:00 11/18/18 09:58 Protonix PO 40 mg DAILY RADHA Administration Polyethylene Glycol 17 gm 11/09/18 10:00 Miralax 3350 PO BID PRN Constipation Sertraline HCl 50 mg 11/09/18 10:00 11/18/18 09:58 Zoloft PO 50 mg DAILY RADHA Administration Simethicone 80 mg 11/12/18 11:49 11/15/18 04:05 Mylicon PO 80 mg Q6H PRN Administration Gas pain Sucralfate 1 gm 11/12/18 16:30 11/19/18 08:30 Carafate PO 1 gm ACHS RADHA Administration Nutrition/Malnutrition Assess - Dietary Evaluation Nutrition/Malnutrition Findings: Nutrition Notes Start: 11/14/18 15:47 Freq: Status: Active Protocol: Document 11/17/18 12:36 OH (Rec: 11/17/18 12:51 OH [id number]) Nutrition Notes Initial or Follow up Reassessment Current Diagnosis Acute Kidney Injury,Coronary Artery Disease,Heart Failure Other Pertinent Diagnosis cardiac arrest Current Diet cardiac Labs/Tests ALB 1.8 BUN 47 Cr 2.2 Na 135 Pertinent Medications Zofran Height 5 ft 7 in Weight 121.6 kg [place] Body Weight (kg) 61.36 BMI 42.0 Subjective/Other Information F/U: Pt. lying in bed. Pt. stated she was having chest pain. RN alerted by PT. Medicine recently provided to pt per RN. Pt. recommended to attend nursing rehab due to medical hx. Pt. lives in a rooming house. Fluid restriction/strict I-Os noted. Pt. cont to c/o nausea. Pt. agreeable to try Ensure but will await renal labs to further evaluate appropriateness. Percent of energy/protein needs met: 40/40% Burn Absent Trauma Absent Current % PO Poor (25-49%) Protein-Calorie Malnutrition Severe #1 Nutrition Diagnosis Inadequate oral intake Etiology decreased appetite, N/V As Evidenced by Signs and Symptoms <75% meal tray consumed Is patient on ventilator? No Is Patient Ambulatory and/or Out of Bed No REE-([facility]-confined to bed) 2133.516 Kcal/Kg value to use for calculation 14 Approximate Energy Requirements Using 1702 kcal/Kg Calculation Used for Recommendations Kcal/kg Additional Notes ABW 91.5 KGS PRO: 0.8-1.0 G/KG/ABW (73-91 g/day) FLUID: 1L-1.2 L/DAY (PER MD RECOMMENDATION) Nutrition Intervention Change Diet Order: Cont cardiac diet Goal #1 Meet at least 75% PRO/KCAL requirements via po intake Anticipated Discharge Needs: cardiac diet education/fluid restriction/CKD education Follow-Up By: 11/20/18 Additional Comments Follow for ONS initiation/po intake
[2018-11-19 14:08] LABS: INR 2.11 (0.87-1.13)
--- NOTE | 2018-11-19 14:11 | Progress Note ---
Assessment and Plan Acute renal failure likely ischemic due to cardiac arrest Hypoxic respiratory failure on mechanical ventilation Acute on Chronic systolic heart failure with EF of 10-15 % Paroxysmal atrial fibrillation - Renal function reviewed. Serum creatinine 3.3 today, yesterday's level was 2.7, non-oliguric - On Bumex 1 mg po BID - Metolazone was discontinued yesterday - Obtain 24 hour urine collection - Start Albumin 25% every 6 hours x 3 doses for Hypotension - Consider decreasing Metoprolol due to Hypotension - No proteinruia, renal US negative for obstruction - Renally dose medications - Strict I&O monitoring- UOP 1300 ml - Obtain daily weights - No indication for [employer] - Continue to monitor renal function - Plan of care reviewed with Dr. Sanchez Subjective Date of service: 11/19/18 Principal diagnosis: Chest pain for 3 days Interval history: Patient seen lying in bed sleeping and snoring. No family at bedside. Objective - Vital Signs Vital signs: Vital Signs - 12hr 11/19/18 11/19/18 11/19/18 02:49 03:48 05:27 Temperature 98.0 F Pulse Rate 73 73 73 Respiratory 18 18 Rate Blood Pressure 129/89 129/89 O2 Sat by Pulse 94 98 Oximetry 11/19/18 11/19/18 11/19/18 08:51 09:01 12:04 Temperature 98.2 F 98.2 F Pulse Rate 52 L Respiratory 20 20 Rate Blood Pressure 107/75 86/52 O2 Sat by Pulse 92 75 L Oximetry 11/19/18 12:11 Temperature Pulse Rate Respiratory Rate Blood Pressure 75/48 O2 Sat by Pulse Oximetry - General Appearance General appearance: well-developed, fatigue EENT: ATNC, PERRL Neck: no JVD, supple Respiratory: Present: Decreased Breath Sounds Cardiology: S1S2 Gastrointestinal: normoactive bowel sounds Integumentary: no rash Neurologic: other (Sleepy) Musculoskeletal: joint swelling, other ( 1-2+ edema to BLE) - Lab 11/19/18 Unknown 11/19/18 06:48 Most recent lab results Calcium 8.0 mg/dL (8.4-10.2) L 11/19/18 06:48 Phosphorus 6.10 mg/dL (2.5-4.5) H D 11/19/18 06:48 Magnesium 1.90 mg/dL (1.7-2.3) 11/18/18 04:45 102.6 mg/dL (0.1-20.0) H 11/16/18 09:26 103.3 mg/dL (0.1-20.0) H 11/16/18 09:26 28 mg/dL (5-11.8) H 11/16/18 09:26 Medications & Allergies - Medications Allergies/Adverse Reactions: Allergies lisinopril Allergy (Verified 02/24/18 09:15) Anaphylaxis Penicillins Allergy (Verified 02/24/18 09:15) Seizure Sulfa (Sulfonamide Antibiotics) Adverse Reaction (Verified 02/24/18 09:15) Hives Home Medications: Home Medications Medication Instructions Recorded Confirmed Last Taken Type Aspirin [Adult Aspirin] 81 mg PO DAILY 02/24/18 11/08/18 05/09/18 History Spironolactone [Aldactone] 25 mg PO QDAY 02/24/18 11/08/18 05/09/18 History buPROPion SR [Wellbutrin SR] 150 mg PO BID 02/24/18 11/08/18 05/09/18 History Albuterol Sulfate [Ventolin HFA] 1 puff IH Q6H PRN 30 Days 03/03/18 11/08/18 05/09/18 Rx [email or web address].[email or web address] Cyclobenzaprine [Flexeril 10 MG 10 mg PO TID PRN 05/10/18 11/08/18 05/09/18 History TAB] Diphenhydramine HCl [Allergy 25 mg PO DAILY 05/10/18 11/08/18 05/09/18 History Relief] ISOSORBIDE MONOnitrate [Imdur ER] 60 mg PO QDAY 05/10/18 11/08/18 05/09/18 History Sertraline HCl [Zoloft] 50 mg PO DAILY 05/10/18 11/08/18 05/09/18 History hydrALAZINE [Apresoline TAB] 25 mg PO Q8HR 05/10/18 11/08/18 05/09/18 History Apixaban [Eliquis] 5 mg PO Q12HR #60 tablet 07/02/18 11/08/18 Unknown Rx Pantoprazole [Protonix TAB] 40 mg PO QDAY #30 tablet 07/02/18 11/08/18 Unknown Rx Polyethylene Glycol 3350 [Miralax 17 gm PO BID PRN #30 powd.pack 07/02/18 11/08/18 Unknown Rx 3350] Carvedilol [Coreg] 3.125 mg PO BID #60 tablet 09/10/18 11/08/18 Unknown Rx Magnesium Oxide [Mag-Ox] 400 mg PO QDAY #7 tablet 10/04/18 11/08/18 Unknown Rx Potassium Chloride [K-Dur] 20 meq PO QDAY #7 tablet 10/04/18 11/08/18 Unknown Rx Torsemide [Demadex] 40 mg PO BID #60 tablet 10/04/18 11/08/18 Unknown Rx metOLazone [Zaroxolyn] 5 mg PO QDAY #30 tablet 10/04/18 11/08/18 Unknown Rx Active Medications: Generic Name Dose Route Start Last Admin Trade Name Freq PRN Reason Stop Dose Admin Albuterol 2.5 mg 11/09/18 08:00 11/17/18 21:42 Proventil IH 2.5 mg Q4HRT PRN Administration Shortness Of Breath Amiodarone HCl 200 mg 11/10/18 22:00 11/18/18 22:53 Cordarone PO 200 mg BID RADHA Administration Aspirin 81 mg 11/09/18 10:00 11/18/18 09:58 Halfprin Ec PO 81 mg DAILY RADHA Administration Atorvastatin Calcium 40 mg 11/11/18 22:00 11/18/18 22:54 Lipitor PO 40 mg QHS RADHA Administration Bumetanide 1 mg 11/14/18 18:00 11/19/18 05:27 Bumex PO 1 mg 0600,1800 RADHA Administration Bupropion HCl 150 mg 11/09/18 10:00 11/18/18 22:54 Wellbutrin Sr PO 150 mg BID RADHA Administration Hydromorphone HCl 0.5 mg 11/19/18 11:21 Dilaudid IV Q3H PRN Pain , Severe (7-10) Magnesium Oxide 400 mg 11/09/18 10:00 11/18/18 10:27 Mag-Ox PO Not Given QDAY RADHA Metoprolol Tartrate 25 mg 11/18/18 12:00 11/19/18 05:27 Lopressor PO 25 mg Q6HR RADHA Administration Ondansetron HCl 4 mg 11/11/18 13:44 11/18/18 17:51 Zofran IV 4 mg Q8H PRN Administration Nausea And Vomiting Pantoprazole Sodium 40 mg 11/18/18 10:00 11/18/18 09:58 Protonix PO 40 mg DAILY RADHA Administration Polyethylene Glycol 17 gm 11/09/18 10:00 Miralax 3350 PO BID PRN Constipation Sertraline HCl 50 mg 11/09/18 10:00 11/18/18 09:58 Zoloft PO 50 mg DAILY RADHA Administration Simethicone 80 mg 11/12/18 11:49 11/15/18 04:05 Mylicon PO 80 mg Q6H PRN Administration Gas pain Sucralfate 1 gm 11/12/18 16:30 11/19/18 08:30 Carafate PO 1 gm ACHS RADHA Administration
--- NOTE | 2018-11-19 16:51 | Consultation ---
History of Present Illness - Reason for Consult Consult date: 11/19/18 GI bleed - History of Present Illness Patient with history of multiple medical problems who was noted overnight to have maroon-colored stools. No diagnostic imaging is been obtained yet. The patient is currently awaiting transfer for a nuclear medicine scan. Her H&H has been stable. He complains of vague midepigastric abdominal pain. Past History Past Medical History: other (as per HPI) Past Surgical History: PTCA, Other (s/p AICD) Social history: smoking. denies: alcohol abuse Family history: no significant family history Medications and Allergies Allergies Allergy/AdvReac Type Severity Reaction Status Date / Time lisinopril Allergy Anaphylaxis Verified 02/24/18 09:15 Penicillins Allergy Seizure Verified 02/24/18 09:15 Sulfa (Sulfonamide AdvReac Hives Verified 02/24/18 09:15 Antibiotics) Home Medications Medication Instructions Recorded Confirmed Last Taken Type Aspirin [Adult Aspirin] 81 mg PO DAILY 02/24/18 11/08/18 05/09/18 History Spironolactone [Aldactone] 25 mg PO QDAY 02/24/18 11/08/18 05/09/18 History buPROPion SR [Wellbutrin SR] 150 mg PO BID 02/24/18 11/08/18 05/09/18 History Albuterol Sulfate [Ventolin HFA] 1 puff IH Q6H PRN 30 Days 03/03/18 11/08/18 05/09/18 Rx hfa.[email or web address].ad Cyclobenzaprine [Flexeril 10 MG 10 mg PO TID PRN 05/10/18 11/08/18 05/09/18 History TAB] Diphenhydramine HCl [Allergy 25 mg PO DAILY 05/10/18 11/08/18 05/09/18 History Relief] ISOSORBIDE MONOnitrate [Imdur ER] 60 mg PO QDAY 05/10/18 11/08/18 05/09/18 History Sertraline HCl [Zoloft] 50 mg PO DAILY 05/10/18 11/08/18 05/09/18 History hydrALAZINE [Apresoline TAB] 25 mg PO Q8HR 05/10/18 11/08/18 05/09/18 History Apixaban [Eliquis] 5 mg PO Q12HR #60 tablet 03/20/19 07/27/19 Unknown Rx Pantoprazole [Protonix TAB] 40 mg PO QDAY #30 tablet 07/02/18 11/08/18 Unknown Rx Polyethylene Glycol 3350 [Miralax 17 gm PO BID PRN #30 powd.pack 07/02/18 11/08/18 Unknown Rx 3350] Carvedilol [Coreg] 3.125 mg PO BID #60 tablet 09/10/18 11/08/18 Unknown Rx Magnesium Oxide [Mag-Ox] 400 mg PO QDAY #7 tablet 10/04/18 11/08/18 Unknown Rx Potassium Chloride [K-Dur] 20 meq PO QDAY #7 tablet 10/04/18 11/08/18 Unknown Rx Torsemide [Demadex] 40 mg PO BID #60 tablet 10/04/18 11/08/18 Unknown Rx metOLazone [Zaroxolyn] 5 mg PO QDAY #30 tablet 10/04/18 11/08/18 Unknown Rx Active Meds: Active Medications Albumin Human (Alburx 25% (Albumin)) 25 gm IV Q6HR [facility] Stop: 11/19/18 18:01 Albuterol (Proventil) 2.5 mg IH Q4HRT PRN PRN Reason: Shortness Of Breath Last Admin: 11/17/18 21:42 Dose: 2.5 mg Documented by: Amiodarone HCl (Cordarone) 200 mg PO BID [facility] Last Admin: 11/18/18 22:53 Dose: 200 mg Documented by: Aspirin (Halfprin Ec) 81 mg PO DAILY [facility] Last Admin: 11/18/18 09:58 Dose: 81 mg Documented by: Atorvastatin Calcium (Lipitor) 40 mg PO QHS [facility] Last Admin: 11/18/18 22:54 Dose: 40 mg Documented by: Bumetanide (Bumex) 1 mg PO 0600,1800 [facility] Last Admin: 11/19/18 05:27 Dose: 1 mg Documented by: Bupropion HCl (Wellbutrin Sr) 150 mg PO BID [facility] Last Admin: 11/18/18 22:54 Dose: 150 mg Documented by: Hydromorphone HCl (Dilaudid) 0.5 mg IV Q3H PRN PRN Reason: Pain , Severe (7-10) Magnesium Oxide (Mag-Ox) 400 mg PO QDAY [facility] Last Admin: 11/18/18 10:27 Dose: Not Given Documented by: Metoprolol Tartrate (Lopressor) 25 mg PO Q6HR [facility] Last Admin: 11/19/18 05:27 Dose: 25 mg Documented by: Ondansetron HCl (Zofran) 4 mg IV Q8H PRN PRN Reason: Nausea And Vomiting Last Admin: 11/18/18 17:51 Dose: 4 mg Documented by: Pantoprazole Sodium (Protonix) 40 mg PO DAILY [facility] Last Admin: 11/18/18 09:58 Dose: 40 mg Documented by: Polyethylene Glycol (Miralax 3350) 17 gm PO BID PRN PRN Reason: Constipation Sertraline HCl (Zoloft) 50 mg PO DAILY [facility] Last Admin: 11/18/18 09:58 Dose: 50 mg Documented by: Simethicone (Mylicon) 80 mg PO Q6H PRN PRN Reason: Gas pain Last Admin: 11/15/18 04:05 Dose: 80 mg Documented by: Sucralfate (Carafate) 1 gm PO ACHS [facility] Last Admin: 11/19/18 08:30 Dose: 1 gm Documented by: Review of Systems ROS unobtainable: due to mental status Exam - Constitutional Vitals: Temp Pulse Resp BP Pulse Ox 98.2 F 75 20 99/58 85 11/19/18 09:01 11/19/18 16:37 11/19/18 09:01 11/19/18 16:37 11/19/18 16:37 General appearance: Present: no acute distress, obese - EENT Eyes: Present: EOM intact ENT: hearing intact - Neck Neck: Present: supple, normal ROM - Respiratory Respiratory effort: normal - Extremities Extremity abnormal: edema - Abdominal General gastrointestinal: Present: soft, non-tender Female genitourinary: Present: deferred - Rectal Rectal Exam: deferred - Psychiatric Psychiatric: cooperative Results - Labs CBC & Chem 7: 11/19/18 Unknown 11/19/18 06:48 Labs: Abnormal lab results 11/19/18 11/19/18 11/19/18 Range/Units 06:48 06:48 Unknown RBC 3.63 L (3.65-5.03) M/mm3 MCV 105 H (79-97) fl MCH 35 H (28-32) pg RDW 17.2 H (13.2-15.2) % Lymph % (Auto) 4.0 L (13.4-35.0) % Lymph # 0.3 L (1.2-5.4) K/mm3 Seg Neutrophils % 89.3 H (40.0-70.0) % PT 23.2 H (12.2-14.9) Sec. INR 2.11 H (0.87-1.13) Sodium 135 L (137-145) mmol/L Chloride 95.4 L (98-107) mmol/L BUN 64 H (7-17) mg/dL Creatinine 3.3 H (0.7-1.2) mg/dL Glucose 102 H (65-100) mg/dL Calcium 8.0 L (8.4-10.2) mg/dL Phosphorus 6.10 H D (2.5-4.5) mg/dL Assessment and Plan Patient is currently stable. Would await the results of her nuclear medicine scan. Additionally, given the patient's stable H&H and recent discontinuation of her Eliquis, would not immediately proceed with intervention unless necessary. We will follow as diagnostic imaging becomes available.
[2018-11-19] MEDS ORDERED: ALBURX 25% (ALBUMIN) IV SCH (18:00)
[2018-11-19] MEDS: CORDARONE PO SCH ×2 (19:02→21:02)
[2018-11-19] MEDS: HALFPRIN EC PO SCH (19:02)
--- NOTE | 2018-11-19 19:08 | Nuclear Medicine Report ---
Nuclear medicine GI bleeding examination. 11/19/2018. HISTORY: GI bleed. Tracer: Technetium 99m UltraTag 20.1 mCi injection. Following injection of the above tracer, initial and delayed images were obtained. Physiologic uptake of tracer is present. There is slightly more localized uptake tracer over the region of the right gr oin. This appears almost immediately following injection and does not change significantly throughout the course of the examination. No additional area of abnormal uptake is identified. IMPRESSION: 1. No area of active GI bleed is noted. 2. Uptake over the region of the lower right pelvis/right groin is favored to be physiologic. Signer Name: Adrien Oconnell MD Signed: 11/19/2018 7:03 PM Workstation Name: [id number]
[2018-11-19] MEDS: ALBURX 25% (ALBUMIN) IV SCH (21:02)
[2018-11-20] MEDS: ALBURX 25% (ALBUMIN) IV SCH ×2 (03:16→09:41)
[2018-11-20 05:07] LABS: Hematocrit 35.2 % (30.3-42.9); Hemoglobin 11.5 gm/dl (10.1-14.3); Mean Corpuscular HGB Conc 33 % (30-34); Mean Corpuscular Volume 105 fl (79-97); Platelet Count 250 K/mm3 (140-440); Red Blood Count 3.37 M/mm3 (3.65-5.03); Red Cell Distribution Width 17.5 % (13.2-15.2)
[2018-11-20 05:21] LABS: Calcium 8.1 mg/dL (8.4-10.2)
[2018-11-20 06:12] LABS: Anisocytosis 1+; Basophils % (Manual) 0 % (0.0-1.8); Eosinophils % (Manual) 0 % (0.0-4.3); Poikilocytosis 1+; Total Cells Counted 100
[2018-11-20 06:13] LABS: Platelet Estimate Consistent w Auto
[2018-11-20] MEDS ORDERED: NACL 0.9% 500 ML 500 ML IV ONE (09:26)
--- NOTE | 2018-11-20 09:29 | Progress Note ---
Assessment and Plan Acute renal failure likely ischemic due to cardiac arrest Hypoxic respiratory failure on mechanical ventilation Acute on Chronic systolic heart failure with EF of 10-15 % Paroxysmal atrial fibrillation - Cr cont to rise but good UOP - will hold bumex - will bolus NS 500 ccx1 - Obtain 24 hour urine collection - No proteinruia, renal US negative for obstruction - Renally dose medications - Strict I&O monitoring - Obtain daily weights - No indication for SHIP'S PILOT - Continue to monitor renal function Preet Mendez MD [phone] Subjective Date of service: 11/20/18 Principal diagnosis: Chest pain for 3 days Interval history: weak but denies acute issues Objective - Vital Signs Vital signs: Vital Signs - 12hr 11/19/18 11/19/18 11/20/18 22:00 23:45 03:58 Temperature 98.0 F 98.0 F Pulse Rate 100 H 56 L 77 Respiratory 20 18 Rate Blood Pressure 103/66 94/65 O2 Sat by Pulse 91 Oximetry 11/20/18 08:42 Temperature 97.4 F L Pulse Rate 64 Respiratory 16 Rate Blood Pressure 116/75 O2 Sat by Pulse 98 Oximetry - General Appearance General appearance: well-developed, well-nourished, appears stated age EENT: ATNC, PERRL, mucous membranes moist Neck: no JVD, no carotid bruit Respiratory: Present: Decreased Breath Sounds. Absent: Rales, Ronchi Cardiology: regular, S1S2 Gastrointestinal: normoactive bowel sounds, no tenderness, no distended Integumentary: no rash, warm and dry Neurologic: no focal deficit, no asterixis, alert and oriented x3 Musculoskeletal: other (trace pitting edema in BLE) Psychiatric: cooperative - Lab 11/20/18 04:30 11/20/18 04:30 Most recent lab results Calcium 8.1 mg/dL (8.4-10.2) L 11/20/18 04:30 Phosphorus 6.60 mg/dL (2.5-4.5) H 11/20/18 04:30 Magnesium 1.90 mg/dL (1.7-2.3) 11/18/18 04:45 102.6 mg/dL (0.1-20.0) H 11/16/18 09:26 103.3 mg/dL (0.1-20.0) H 08/04/19 09:26 28 mg/dL (5-11.8) H 11/16/18 09:26 Medications & Allergies - Medications Allergies/Adverse Reactions: Allergies lisinopril Allergy (Verified 02/24/18 09:15) Anaphylaxis Penicillins Allergy (Verified 02/24/18 09:15) Seizure Sulfa (Sulfonamide Antibiotics) Adverse Reaction (Verified 02/24/18 09:15) Hives Home Medications: Home Medications Medication Instructions Recorded Confirmed Last Taken Type Aspirin [Adult Aspirin] 81 mg PO DAILY 02/24/18 11/08/18 05/09/18 History Spironolactone [Aldactone] 25 mg PO QDAY 02/24/18 11/08/18 05/09/18 History buPROPion SR [Wellbutrin SR] 150 mg PO BID 02/24/18 11/08/18 05/09/18 History Albuterol Sulfate [Ventolin HFA] 1 puff IH Q6H PRN 30 Days 03/03/18 11/08/18 05/09/18 Rx [email or web address] Cyclobenzaprine [Flexeril 10 MG 10 mg PO TID PRN 05/10/18 11/08/18 05/09/18 History TAB] Diphenhydramine HCl [Allergy 25 mg PO DAILY 05/10/18 11/08/18 05/09/18 History Relief] ISOSORBIDE MONOnitrate [Imdur ER] 60 mg PO QDAY 05/10/18 11/08/18 05/09/18 History Sertraline HCl [Zoloft] 50 mg PO DAILY 05/10/18 11/08/18 05/09/18 History hydrALAZINE [Apresoline TAB] 25 mg PO Q8HR 05/10/18 11/08/18 05/09/18 History Apixaban [Eliquis] 5 mg PO Q12HR #60 tablet 07/02/18 11/08/18 Unknown Rx Pantoprazole [Protonix TAB] 40 mg PO QDAY #30 tablet 07/02/18 11/08/18 Unknown Rx Polyethylene Glycol 3350 [Miralax 17 gm PO BID PRN #30 powd.pack 07/02/18 11/08/18 Unknown Rx 3350] Carvedilol [Coreg] 3.125 mg PO BID #60 tablet 09/10/18 11/08/18 Unknown Rx Magnesium Oxide [Mag-Ox] 400 mg PO QDAY #7 tablet 10/04/18 11/08/18 Unknown Rx Potassium Chloride [K-Dur] 20 meq PO QDAY #7 tablet 10/04/18 11/08/18 Unknown Rx Torsemide [Demadex] 40 mg PO BID #60 tablet 10/04/18 11/08/18 Unknown Rx metOLazone [Zaroxolyn] 5 mg PO QDAY #30 tablet 10/04/18 11/08/18 Unknown Rx Active Medications: Generic Name Dose Route Start Last Admin Trade Name Freq PRN Reason Stop Dose Admin Albuterol 2.5 mg 11/09/18 08:00 11/17/18 21:42 Proventil IH 2.5 mg Q4HRT PRN Administration Shortness Of Breath Amiodarone HCl 200 mg 11/10/18 22:00 11/19/18 21:02 Cordarone PO 200 mg BID RADHA Administration Aspirin 81 mg 11/09/18 10:00 11/19/18 19:02 Halfprin Ec PO Not Given DAILY [facility] Atorvastatin Calcium 40 mg 11/11/18 22:00 11/19/18 21:02 Lipitor PO 40 mg QHS RADHA Administration Bupropion HCl 150 mg 11/09/18 10:00 11/19/18 21:03 Wellbutrin Sr PO 150 mg BID RADHA Administration Hydromorphone HCl 0.5 mg 11/19/18 11:21 Dilaudid IV Q3H PRN Pain , Severe (7-10) Sodium Chloride 500 mls @ 999 mls/hr 11/20/18 09:26 Nacl 0.9% 500 Ml IV 11/20/18 09:56 ONCE ONE Magnesium Oxide 400 mg 11/09/18 10:00 11/19/18 12:30 Mag-Ox PO Not Given QDAY RADHA Metoprolol Tartrate 25 mg 11/18/18 12:00 11/20/18 00:00 Lopressor PO Not Given Q6HR [facility] Ondansetron HCl 4 mg 11/11/18 13:44 11/18/18 17:51 Zofran IV 4 mg Q8H PRN Administration Nausea And Vomiting Pantoprazole Sodium 40 mg 11/18/18 10:00 11/19/18 12:30 Protonix PO Not Given DAILY [facility] Polyethylene Glycol 17 gm 11/09/18 10:00 Miralax 3350 PO BID PRN Constipation Sertraline HCl 50 mg 11/09/18 10:00 11/19/18 12:30 Zoloft PO Not Given DAILY RADHA Simethicone 80 mg 11/12/18 11:49 11/15/18 04:05 Mylicon PO 80 mg Q6H PRN Administration Gas pain Sucralfate 1 gm 11/12/18 16:30 11/19/18 21:02 Carafate PO 1 gm ACHS RADHA Administration
[2018-11-20] MEDS: CORDARONE PO SCH ×2 (09:41→22:48)
[2018-11-20] MEDS: WELLBUTRIN SR PO SCH ×2 (09:41→22:49)
[2018-11-20] MEDS: ZOLOFT PO SCH (09:41)
[2018-11-20] MEDS: MAG-OX PO SCH (09:42)
[2018-11-20] MEDS: HALFPRIN EC PO SCH (09:42)
[2018-11-20] MEDS: CARAFATE PO SCH ×4 (09:42→22:48)
[2018-11-20] MEDS: PROTONIX PO SCH (09:42)
--- NOTE | 2018-11-20 09:48 | Progress Note ---
Assessment and Plan Acute on Chronic systolic heart failure Suspect non-compliance Multiple HF admission Lower GI bleed -GI workup is in progress. s/p Cardiopulmonary arrest 11/15 device interrogation revealed no activity Acute renal failure Ascites Patient had paracentesis in previous admissions Hx of LUE DVT Hx of coronary artery disease cardiac cath 03/2018 revealed patent SVG to LAD, patent SVG to OM, patent SVG to PDA and patent diagonal stent, LVEF 10-15%. Non-specific troponin Hx of Ischemic cardiomyopathy ejection fraction 10-15% by echo 08/2018 Presence of single chamber cardiac defibrillator underlying paroxysmal atrial fibrillation. Eliquis discontinued due to lower GI bleed. on amiodarone and metoprolol for suppression. Tobacco abuse Recommendations: Fluid/sodium restriction. Continue medical therapy for paroxysmal atrial fibrillation, ischemic cardiomyopathy and chronic systolic heart failure. Subjective Date of service: 11/20/18 Principal diagnosis: Chest pain for 3 days Interval history: Patient is resting in bed comfortably. She has no cardiac complaints. Creatinine continues to trend upwards. Objective Vital Signs Temp Pulse Pulse Pulse Resp BP Pulse Ox 11/20/18 08:42 97.4 F L 64 16 116/75 98 11/20/18 03:58 98.0 F 77 18 94/65 11/19/18 23:45 98.0 F 56 L 20 103/66 91 11/19/18 22:00 100 H 11/19/18 19:28 98.0 F 60 18 82/55 100 11/19/18 19:05 62 75/48 11/19/18 16:39 92/55 11/19/18 16:37 75 99/58 85 11/19/18 14:48 103/59 11/19/18 13:38 92/56 11/19/18 12:11 75/48 11/19/18 12:04 86/52 75 L 11/19/18 10:00 62 72 20 92 - Physical Examination General: No Apparent Distress HEENT: Positive: PERRL Neck: Positive: trachea midline Cardiac: Positive: irregularly irregular Lungs: Positive: Decreased Breath Sounds Neuro: Positive: Grossly Intact Extremities: Present: +1 Edema - Labs and Meds Coagulation 11/19/18 Range/Units Unknown PT 23.2 H (12.2-14.9) Sec. INR 2.11 H (0.87-1.13) CBC 11/19/18 11/20/18 Range/Units Unknown 04:30 WBC 8.7 (4.5-11.0) K/mm3 RBC 3.37 L (3.65-5.03) M/mm3 Hgb 12.2 11.5 (10.1-14.3) gm/dl Hct 37.0 35.2 (30.3-42.9) % Plt Count 250 (140-440) K/mm3 Comprehensive Metabolic Panel 11/20/18 Range/Units 04:30 Sodium 136 L (137-145) mmol/L Potassium 4.5 (3.6-5.0) mmol/L Chloride 95.5 L (98-107) mmol/L Carbon Dioxide 28 (22-30) mmol/L BUN 72 H (7-17) mg/dL Creatinine 3.6 H (0.7-1.2) mg/dL Glucose 99 (65-100) mg/dL Calcium 8.1 L (8.4-10.2) mg/dL
--- NOTE | 2018-11-20 10:41 | Gastroenterology Progress Note ---
Assessment and Plan 1.GI bleed -H/H 11.5/35.2 -continue to monitor H/H and transfuse as needed -no active signs of bleeding this am per nursing -last EGD 05/16/2018 showed medium hiatal hernia, moderate gastritis with ulceration, and moderate duodenitis (bx negative) -had a colonoscopy within the last few years at [facility] with negative results per pt report (records unavailable) -abd CT 09/27/18-ascites (likely cardiac in origin), cardiomegaly, and dinesh pleural effusions -etiology unclear -bleeding scan yesterday negative for active bleeding -Eliquis on hold -no plan for scope at this time unless critical given comorbids and critical condition; continue conservative management -will follow 2.Acute on Chronic systolic heart failure 3.s/p Cardiopulmonary arrest 11/15 4.KERWIN 5.acute on chronic respiratory failure (COPD) 6.Hx of LUE DVT 7.Hx of coronary artery disease 8.Hx of Ischemic cardiomyopathy -s/p AICD; EF 10-15% 9.A.fib Subjective Date of service: 11/20/18 Principal diagnosis: blood in stool Interval history: No active signs of bleeding this am per nursing. Objective - Constitutional Vitals: Temp Pulse Resp BP Pulse Ox 97.4 F L 64 16 116/75 98 11/20/18 08:42 11/20/18 08:42 11/20/18 08:42 11/20/18 08:42 11/20/18 08:42 General appearance: no acute distress, obese - Respiratory Respiratory: bilateral: diminished - Cardiovascular Rhythm: other (irregular) - Gastrointestinal General gastrointestinal: Present: soft, non-distended, normal bowel sounds - Labs CBC & Chem 7: 11/20/18 04:30 11/20/18 04:30 Labs: Laboratory Results - last 24 hr 11/19/18 11/19/18 11/19/18 Unknown Unknown Unknown WBC RBC Hgb 12.2 Hct 37.0 MCV MCH MCHC RDW Plt Count Add Manual Diff Total Counted Seg Neutrophils % Seg Neuts % (Manual) Band Neutrophils % Lymphocytes % (Manual) Reactive Lymphs % (Man) Monocytes % (Manual) Eosinophils % (Manual) Basophils % (Manual) Metamyelocytes % Myelocytes % Promyelocytes % Blast Cells % Nucleated RBC % Seg Neutrophils # Man Band Neutrophils # Lymphocytes # (Manual) Abs React Lymphs (Man) Monocytes # (Manual) Eosinophils # (Manual) Basophils # (Manual) Metamyelocytes # Myelocytes # Promyelocytes # Blast Cells # WBC Morphology Hypersegmented Neuts Hyposegmented Neuts Hypogranular Neuts Smudge Cells Toxic Granulation Toxic Vacuolation Dohle Bodies Pelger-Huet Anomaly Richi Rods Platelet Estimate Clumped Platelets Plt Clumps, EDTA Large Platelets Giant Platelets Platelet Satelliting Plt Morphology Comment RBC Morphology Dimorphic RBCs Polychromasia Hypochromasia Poikilocytosis Anisocytosis Microcytosis Macrocytosis Spherocytes Pappenheimer Bodies Sickle Cells Target Cells Tear Drop Cells Ovalocytes Helmet Cells Morley-St. Rose Bodies Sims Rings Charles Cells Bite Cells Crenated Cell Elliptocytes Acanthocytes (Spur) Rouleaux Hemoglobin C Crystals Schistocytes Malaria parasites Diogenes Bodies Hem Pathologist Commnt PT 23.2 H INR 2.11 H Sodium Potassium Chloride Carbon Dioxide Anion Gap BUN Creatinine Estimated GFR BUN/Creatinine Ratio Glucose Calcium Phosphorus Blood Type O POSITIVE Antibody Screen Negative 11/20/18 11/20/18 04:30 04:30 WBC 8.7 RBC 3.37 L Hgb 11.5 Hct 35.2 MCV 105 H MCH 34 H MCHC 33 RDW 17.5 H Plt Count 250 Add Manual Diff Complete Total Counted 100 Seg Neutrophils % Bread And Pastry Baker Seg Neuts % (Manual) 93.0 H Band Neutrophils % 0 Lymphocytes % (Manual) 3.0 L Reactive Lymphs % (Man) 0 Monocytes % (Manual) 3.0 Eosinophils % (Manual) 0 Basophils % (Manual) 0 Metamyelocytes % 1.0 Myelocytes % 0 Promyelocytes % 0 Blast Cells % 0 Nucleated RBC % 1.0 H Seg Neutrophils # Man 8.1 H Band Neutrophils # 0.0 Lymphocytes # (Manual) 0.3 L Abs React Lymphs (Man) 0.0 Monocytes # (Manual) 0.3 Eosinophils # (Manual) 0.0 Basophils # (Manual) 0.0 Metamyelocytes # 0.1 Myelocytes # 0.0 Promyelocytes # 0.0 Blast Cells # 0.0 WBC Morphology Not Reportable Hypersegmented Neuts Not Reportable Hyposegmented Neuts Not Reportable Hypogranular Neuts Not Reportable Smudge Cells Not Reportable Toxic Granulation Not Reportable Toxic Vacuolation Not Reportable Dohle Bodies Not Reportable Pelger-Huet Anomaly Not Reportable Richi Rods Not Reportable Platelet Estimate Consistent w auto Clumped Platelets Not Reportable Plt Clumps, EDTA Not Reportable Large Platelets Not Reportable Giant Platelets Not Reportable Platelet Satelliting Not Reportable Plt Morphology Comment Not Reportable RBC Morphology Not Reportable Dimorphic RBCs Not Reportable Polychromasia Not Reportable Hypochromasia Not Reportable Poikilocytosis 1+ Anisocytosis 1+ Microcytosis Not Reportable Macrocytosis Not Reportable Spherocytes Not Reportable Pappenheimer Bodies Not Reportable Sickle Cells Not Reportable Target Cells Not Reportable Tear Drop Cells Not Reportable Ovalocytes Not Reportable Helmet Cells Not Reportable Morley-St. Rose Bodies Not Reportable Sims Rings Not Reportable Charles Cells Not Reportable Bite Cells Not Reportable Crenated Cell Not Reportable Elliptocytes Few Acanthocytes (Spur) Not Reportable Rouleaux Not Reportable Hemoglobin C Crystals Not Reportable Schistocytes Not Reportable Malaria parasites Not Reportable Diogenes Bodies Not Reportable Hem Pathologist Commnt No PT INR Sodium 136 L Potassium 4.5 Chloride 95.5 L Carbon Dioxide 28 Anion Gap 17 BUN 72 H Creatinine 3.6 H Estimated GFR 15 BUN/Creatinine Ratio 20 Glucose 99 Calcium 8.1 L Phosphorus 6.60 H Blood Type Antibody Screen
--- NOTE | 2018-11-20 11:19 | Progress Note ---
Assessment and Plan Assessment and plan: Patient is a 68 year old -[place] female who was initially admitted for acute on chronic systolic heart failure. She was managed with IV milrinone drip and IV bumex by cardiology. The drip was discontinued on 11/13 while the IV Bumex was changed to oral on 11/14. Early this morning, she coded and was successfully resuscitated and transferred to the ICU ACUTE GI BLEED -keep npo, spoke with RN, asked to hold eliquis -GI consult, suspect lower GI bleed, most likely due to ischemic colitis, Hg stable -cannot do CTA due to elevated creatinine, and cannot do MRI due to PM, consider IR consult if symptoms persist S/p PEA cardiac arrest -Successfully resuscitated -Cardiology to follow-up Acute on chronic respiratory failure with hypoxia on MV > 96 hours extubated on 11/16, care per pulmonology cardiogenic Shock -Probably cardiogenic -off IV pressor, since 11/16, improved Acute on Chronic systolic heart failure with EF of 10-15 % -Suspect to be due to non-compliance bs of multiple HF admission -Status post single chamber cardiac defibrillator placement. -On oral bumex, BB and aldactone. Off Milrinone drip since 11/12. Not on ACEI due to allergy -Last echo was in 08/2018 -Mgx by Cardiology Paroxysmal atrial fibrillation -Rate currently controlled, meds per cardiology -eliquis now on hold given gi bleed Hx of LUE DVT -eliquis on hold due to gi bleed Hx of coronary artery disease -cardiac cath 03/2018 revealed patent SVG to LAD, patent SVG to OM, patent SVG to PDA and patent diagonal stent, LVEF 10-15%. -Continue medical management Elevated troponin on admission type 2 PR, mgt per cardiology KERWIN, likely vasomotor nephropathy, ATN and/diuretic use cr now stabilizing, nephrology following, judicious use of diuretics COPD, chronic and stable Tobacco abuse -Patient counseled on cessation > 11 minutes Morbid obesity with BMI of 42.9 -Lifestyle modification recommended -preventative health counseling >17 minutes History Interval history: per RN, she is having bloody stool, stool was just blood with no stool in it she is c/o abdominal pain on and off all day Hospitalist Physical - Physical exam Narrative exam: General appearance: Present: no acute distress, obese, o - EENT Eyes: Present: PERRL, EOM intact ENT: hearing intact, clear oral mucosa - Neck Neck: Present: supple - Respiratory Respiratory effort: normal Respiratory: bilateral: rales - Cardiovascular Rhythm: regular Heart Sounds: Present: S1 & S2 - Extremities Extremity abnormal: edema (in BLE) - Abdominal General gastrointestinal: soft, tender (Mild and generalized), normal bowel sounds - Integumentary Integumentary: Present: clear, warm, dry - Neurologic Neurologic: moves all extremities - Constitutional Vitals: Temp Pulse Resp BP Pulse Ox 97.4 F L 64 16 116/75 98 11/20/18 08:42 11/20/18 08:42 11/20/18 08:42 11/20/18 08:42 11/20/18 08:42 General appearance: Present: no acute distress, obese Results - Labs CBC & Chem 7: 11/22/18 05:35 11/23/18 04:22 Labs: Laboratory Last Values WBC 8.7 K/mm3 (4.5-11.0) 11/20/18 04:30 RBC 3.37 M/mm3 (3.65-5.03) L 11/20/18 04:30 Hgb 11.5 gm/dl (10.1-14.3) 11/20/18 04:30 Hct 35.2 % (30.3-42.9) 11/20/18 04:30 MCV 105 fl (79-97) H 11/20/18 04:30 MCH 34 pg (28-32) H 11/20/18 04:30 MCHC 33 % (30-34) 11/20/18 04:30 RDW 17.5 % (13.2-15.2) H 11/20/18 04:30 Plt Count 250 K/mm3 (140-440) 11/20/18 04:30 Lymph % (Auto) 4.0 % (13.4-35.0) L 11/19/18 06:48 Rice % (Auto) 6.1 % (0.0-7.3) 11/19/18 06:48 Eos % (Auto) 0.0 % (0.0-4.3) 11/19/18 06:48 Baso % (Auto) 0.6 % (0.0-1.8) 11/19/18 06:48 Lymph # 0.3 K/mm3 (1.2-5.4) L 11/19/18 06:48 Rice # 0.5 K/mm3 (0.0-0.8) 11/19/18 06:48 Eos # 0.0 K/mm3 (0.0-0.4) 11/19/18 06:48 Baso # 0.0 K/mm3 (0.0-0.1) 11/19/18 06:48 Add Manual Diff Complete 11/20/18 04:30 Total Counted 100 11/20/18 04:30 Seg Neutrophils % [employer] Att[employer] 11/20/18 04:30 Seg Neuts % (Manual) 93.0 % (40.0-70.0) H 11/20/18 04:30 0 % 11/20/18 04:30 3.0 % (13.4-35.0) L 11/20/18 04:30 Reactive Lymphs % (Man) 0 % 11/20/18 04:30 3.0 % (0.0-7.3) 11/20/18 04:30 0 % (0.0-4.3) 11/20/18 04:30 0 % (0.0-1.8) 11/20/18 04:30 1.0 % 11/20/18 04:30 0 % 11/20/18 04:30 0 % 11/20/18 04:30 0 % 11/20/18 04:30 Nucleated RBC % 1.0 % (0.0-0.9) H 11/20/18 04:30 Seg Neutrophils # 7.4 K/mm3 (1.8-7.7) 11/19/18 06:48 Seg Neutrophils # Man 8.1 K/mm3 (1.8-7.7) H 11/20/18 04:30 Band Neutrophils # 0.0 K/mm3 11/20/18 04:30 0.3 K/mm3 (1.2-5.4) L 11/20/18 04:30 Abs React Lymphs (Man) 0.0 K/mm3 11/20/18 04:30 0.3 K/mm3 (0.0-0.8) 11/20/18 04:30 0.0 K/mm3 (0.0-0.4) 11/20/18 04:30 0.0 K/mm3 (0.0-0.1) 11/20/18 04:30 0.1 K/mm3 11/20/18 04:30 0.0 K/mm3 11/20/18 04:30 0.0 K/mm3 11/20/18 04:30 Blast Cells # 0.0 K/mm3 11/20/18 04:30 WBC Morphology Not Reportable 11/20/18 04:30 Hypersegmented Neuts Not Reportable 11/20/18 04:30 Hyposegmented Neuts Not Reportable 11/20/18 04:30 Hypogranular Neuts Not Reportable 11/20/18 04:30 Not Reportable 11/20/18 04:30 Not Reportable 11/20/18 04:30 Not Reportable 11/20/18 04:30 Not Reportable 11/20/18 04:30 Not Reportable 11/20/18 04:30 Not Reportable 11/20/18 04:30 Consistent w auto 11/20/18 04:30 Not Reportable 11/20/18 04:30 Plt Clumps, EDTA Not Reportable 11/20/18 04:30 Not Reportable 11/20/18 04:30 Not Reportable 11/20/18 04:30 Not Reportable 11/20/18 04:30 Plt Morphology Comment Not Reportable 11/20/18 04:30 RBC Morphology Not Reportable 11/20/18 04:30 Dimorphic RBCs Not Reportable 11/20/18 04:30 Not Reportable 11/20/18 04:30 Not Reportable 11/20/18 04:30 1+ 11/20/18 04:30 1+ 11/20/18 04:30 Not Reportable 11/20/18 04:30 Not Reportable 11/20/18 04:30 Not Reportable 11/20/18 04:30 Not Reportable 11/20/18 04:30 Not Reportable 11/20/18 04:30 Not Reportable 11/20/18 04:30 Not Reportable 11/20/18 04:30 Not Reportable 11/20/18 04:30 Not Reportable 11/20/18 04:30 Not Reportable 11/20/18 04:30 Not Reportable 11/20/18 04:30 Not Reportable 11/20/18 04:30 Not Reportable 11/20/18 04:30 Not Reportable 11/20/18 04:30 Few 11/20/18 04:30 Acanthocytes (Spur) Not Reportable 11/20/18 04:30 Rouleaux Not Reportable 11/20/18 04:30 Not Reportable 11/20/18 04:30 Not Reportable 11/20/18 04:30 Not Reportable 11/20/18 04:30 Not Reportable 11/20/18 04:30 Hem Pathologist Commnt No 11/20/18 04:30 PT 23.2 Sec. (12.2-14.9) H 11/19/18 Unknown INR 2.11 (0.87-1.13) H 11/19/18 Unknown APTT 28.5 Sec. (24.2-36.6) 11/15/18 18:41 POC ABG pH 7.507 (7.35-7.45) H 11/16/18 03:53 POC ABG pCO2 34.9 (35-45) L 11/16/18 03:53 POC ABG pO2 133 (80-105) H 11/16/18 03:53 POC ABG HCO3 27.6 (22-26 mml/L) 11/16/18 03:53 POC ABG Total CO2 29 (23-27mmol/L) 11/16/18 03:53 POC ABG O2 Sat 99 11/16/18 03:53 POC ABG Base Excess 5 ((-2) - (+3)mmol/L) 11/16/18 03:53 40 % 11/16/18 03:53 Sodium 136 mmol/L (137-145) L 11/20/18 04:30 Potassium 4.5 mmol/L (3.6-5.0) 11/20/18 04:30 Chloride 95.5 mmol/L (98-107) L 11/20/18 04:30 Carbon Dioxide 28 mmol/L (22-30) 11/20/18 04:30 17 mmol/L 11/20/18 04:30 BUN 72 mg/dL (7-17) H 11/20/18 04:30 3.6 mg/dL (0.7-1.2) H 11/20/18 04:30 Estimated GFR 15 ml/min 11/20/18 04:30 20 % 11/20/18 04:30 Glucose 99 mg/dL (65-100) 11/20/18 04:30 POC Glucose 75 (70-105) 11/16/18 09:18 Calcium 8.1 mg/dL (8.4-10.2) L 11/20/18 04:30 Phosphorus 6.60 mg/dL (2.5-4.5) H 11/20/18 04:30 Magnesium 1.90 mg/dL (1.7-2.3) 11/18/18 04:45 0.50 mg/dL (0.1-1.2) 11/15/18 18:41 AST 37 units/L (5-40) 11/15/18 18:41 ALT 15 units/L (7-56) 11/15/18 18:41 78 units/L (35-129) 11/15/18 18:41 293 units/L (30-135) H 11/15/18 18:41 CK-MB (CK-2) 5.6 ng/mL (0.0-4.0) H 11/15/18 18:41 CK-MB (CK-2) Rel Index 1.9 (0-4) 11/15/18 18:41 2.830 ng/mL (0.00-0.029) H* 11/15/18 18:41 4.6 g/dL (6.3-8.2) L 11/15/18 18:41 1.8 g/dL (3.9-5) L 11/15/18 18:41 0.6 % 11/15/18 18:41 Triglycerides 107 mg/dL (2-149) 11/08/18 03:09 Cholesterol 176 mg/dL (50-199) 11/08/18 03:09 137 mg/dL (50-130) H 11/08/18 03:09 33 mg/dL (40-59) L 11/08/18 03:09 5.33 % 11/08/18 03:09 11 units/L (13-60) L 11/13/18 05:38 Yellow (Yellow) 11/16/18 09:26 Slightly-cloudy (Clear) 11/16/18 09:26 7.0 (5.0-7.0) 11/16/18 09:26 Ur Specific Motley 1.014 (1.003-1.030) 11/16/18 09:26 <15 mg/dl mg/dL (Negative) 11/16/18 09:26 Neg mg/dL (Negative) 11/16/18 09:26 Tr mg/dL (Negative) 11/16/18 09:26 Neg (Negative) 11/16/18 09:26 Neg (Negative) 11/16/18 09:26 Neg (Negative) 11/16/18 09:26 < 2.0 mg/dL (<2.0) 11/16/18 09:26 Ur Leukocyte Esterase Neg (Negative) 11/16/18 09:26 2.0 /HPF (0.0-6.0) 11/16/18 09:26 1.0 /HPF (0.0-6.0) 11/16/18 09:26 U Epithel Cells (Auto) < 1.0 /HPF (0-13.0) 11/16/18 09:26 2+ /HPF (Negative) 11/16/18 09:26 Few /HPF 11/16/18 09:26 102.6 mg/dL (0.1-20.0) H 11/16/18 09:26 103.3 mg/dL (0.1-20.0) H 11/16/18 09:26 Protein/Creatinin Ratio 0.27 11/16/18 09:26 28 mg/dL (5-11.8) H 11/16/18 09:26 Blood Type O POSITIVE 11/19/18 Unknown Antibody Screen Negative 11/19/18 Unknown Active Medications - Current Medications Current Medications: Generic Name Dose Route Start Last Admin Trade Name Freq PRN Reason Stop Dose Admin Albuterol 2.5 mg 11/09/18 08:00 11/17/18 21:42 Proventil IH 2.5 mg Q4HRT PRN Administration Shortness Of Breath Amiodarone HCl 200 mg 11/10/18 22:00 11/20/18 09:41 Cordarone PO 200 mg BID RADHA Administration Aspirin 81 mg 11/09/18 10:00 11/20/18 09:42 Halfprin Ec PO 81 mg DAILY RADHA Administration Atorvastatin Calcium 40 mg 11/11/18 22:00 11/19/18 21:02 Lipitor PO 40 mg QHS RADHA Administration Bupropion HCl 150 mg 11/09/18 10:00 11/20/18 09:41 Wellbutrin Sr PO 150 mg BID RADHA Administration Hydromorphone HCl 0.5 mg 11/19/18 11:21 Dilaudid IV Q3H PRN Pain , Severe (7-10) Magnesium Oxide 400 mg 11/09/18 10:00 11/20/18 09:42 Mag-Ox PO 400 mg QDAY RADHA Administration Metoprolol Tartrate 25 mg 11/18/18 12:00 11/20/18 00:00 Lopressor PO Not Given Q6HR RADHA Ondansetron HCl 4 mg 11/11/18 13:44 11/18/18 17:51 Zofran IV 4 mg Q8H PRN Administration Nausea And Vomiting Pantoprazole Sodium 40 mg 11/18/18 10:00 11/20/18 09:42 Protonix PO 40 mg DAILY RADHA Administration Polyethylene Glycol 17 gm 11/09/18 10:00 Miralax 3350 PO BID PRN Constipation Sertraline HCl 50 mg 11/09/18 10:00 11/20/18 09:41 Zoloft PO 50 mg DAILY RADHA Administration Simethicone 80 mg 11/12/18 11:49 11/15/18 04:05 Mylicon PO 80 mg Q6H PRN Administration Gas pain Sucralfate 1 gm 11/12/18 16:30 11/20/18 09:42 Carafate PO 1 gm ACHS RADHA Administration Nutrition/Malnutrition Assess - Dietary Evaluation Nutrition/Malnutrition Findings: Nutrition Notes Start: 11/14/18 15:47 Freq: Status: Active Protocol: Document 11/17/18 12:36 OH (Rec: 11/17/18 12:51 OH [id number]) Nutrition Notes Initial or Follow up Reassessment Current Diagnosis Acute Kidney Injury,Coronary Artery Disease,Heart Failure Other Pertinent Diagnosis cardiac arrest Current Diet cardiac Labs/Tests ALB 1.8 BUN 47 Cr 2.2 Na 135 Pertinent Medications Zofran Height 5 ft 7 in Weight 121.6 kg Ava Body Weight (kg) 61.36 BMI 42.0 Subjective/Other Information F/U: Pt. lying in bed. Pt. stated she was having chest pain. RN alerted by PT. Medicine recently provided to pt per RN. Pt. recommended to attend nursing rehab due to medical hx. Pt. lives in a rooming house. Fluid restriction/strict I-Os noted. Pt. cont to c/o nausea. Pt. agreeable to try Ensure but will await renal labs to further evaluate appropriateness. Percent of energy/protein needs met: 40/40% Burn Absent Trauma Absent Current % PO Poor (25-49%) Protein-Calorie Malnutrition Severe #1 Nutrition Diagnosis Inadequate oral intake Etiology decreased appetite, N/V As Evidenced by Signs and Symptoms <75% meal tray consumed Is patient on ventilator? No Is Patient Ambulatory and/or Out of Bed No REE-([facility]-confined to bed) 2133.516 Kcal/Kg value to use for calculation 14 Approximate Energy Requirements Using 1702 kcal/Kg Calculation Used for Recommendations Kcal/kg Additional Notes ABW 91.5 KGS PRO: 0.8-1.0 G/KG/ABW (73-91 g/day) FLUID: 1L-1.2 L/DAY (PER MD RECOMMENDATION) Nutrition Intervention Change Diet Order: Cont cardiac diet Goal #1 Meet at least 75% PRO/KCAL requirements via po intake Anticipated Discharge Needs: cardiac diet education/fluid restriction/CKD education Follow-Up By: 11/20/18 Additional Comments Follow for ONS initiation/po intake
[2018-11-20] MEDS: LOPRESSOR PO SCH ×3 (12:36→18:36)
--- NOTE | 2018-11-20 13:36 | Progress Note ---
Assessment and Plan Imp: 1. S/p CP arrest of ? etiology 2. ICMP 3. A/C systolic CHF 4. KERWIN 5. Morbid obesity 6. HUNTER, noncompliant w/ CPAP 7. CAD 8. GI bleed Rec: 1. Cardiac optimization per cardiology 2. Cont. BIPAP QHS; patient noncompliant with CPAP chronically per above, apparently lost her machine at some point; recommend repeating sleep studies as an outpatient to get a new machine, or see if her hospice agency could get her one 3. Weight loss 4. Current chest pain is musculoskeletal and likely due to chest compressions 5. Renal following re: worsening KERWIN 6. Try to mobilize; will follow with you, currently stable pulm-recinos Plan of care reviewed w/ patient, she understands/agrees Subjective Date of service: 11/20/18 Principal diagnosis: blood in stool Interval history: On O2 by nasal cannula now. SOB stable. No reported bleeding. Eliquis stopped. H /H has been stable. BP better. Active Medications Albuterol (Proventil) 2.5 mg IH Q4HRT PRN PRN Reason: Shortness Of Breath Last Admin: 11/17/18 21:42 Dose: 2.5 mg Documented by: Amiodarone HCl (Cordarone) 200 mg PO BID [facility] Last Admin: 11/20/18 09:41 Dose: 200 mg Documented by: Aspirin (Halfprin Ec) 81 mg PO DAILY [facility] Last Admin: 11/20/18 09:42 Dose: 81 mg Documented by: Atorvastatin Calcium (Lipitor) 40 mg PO QHS [facility] Last Admin: 11/19/18 21:02 Dose: 40 mg Documented by: Bupropion HCl (Wellbutrin Sr) 150 mg PO BID [facility] Last Admin: 11/20/18 09:41 Dose: 150 mg Documented by: Hydromorphone HCl (Dilaudid) 0.5 mg IV Q3H PRN PRN Reason: Pain , Severe (7-10) Sodium Chloride (Nacl 0.9% 1000 Ml) 1,000 mls @ 999 mls/hr IV BOLUS ONE Stop: 11/20/18 18:57 Magnesium Oxide (Mag-Ox) 400 mg PO QDAY [facility] Last Admin: 11/20/18 09:42 Dose: 400 mg Documented by: Metoprolol Tartrate (Lopressor) 25 mg PO Q6HR [facility] Last Admin: 11/20/18 00:00 Dose: Not Given Documented by: Ondansetron HCl (Zofran) 4 mg IV Q8H PRN PRN Reason: Nausea And Vomiting Last Admin: 11/18/18 17:51 Dose: 4 mg Documented by: Pantoprazole Sodium (Protonix) 40 mg PO DAILY [facility] Last Admin: 11/20/18 09:42 Dose: 40 mg Documented by: Polyethylene Glycol (Miralax 3350) 17 gm PO BID PRN PRN Reason: Constipation Sertraline HCl (Zoloft) 50 mg PO DAILY [facility] Last Admin: 11/20/18 09:41 Dose: 50 mg Documented by: Simethicone (Mylicon) 80 mg PO Q6H PRN PRN Reason: Gas pain Last Admin: 11/15/18 04:05 Dose: 80 mg Documented by: Sucralfate (Carafate) 1 gm PO ACHS [facility] Last Admin: 11/20/18 12:13 Dose: 1 gm Documented by: Objective Vital Signs - 12hr 11/20/18 11/20/18 11/20/18 03:58 08:42 10:00 Temperature 98.0 F 97.4 F L Pulse Rate 77 64 Respiratory 18 16 Rate Blood Pressure 94/65 116/75 O2 Sat by Pulse 98 100 Oximetry Constitutional: no acute distress, alert, other (obese) Eyes: non-icteric ENT: oropharynx moist Neck: supple Effort: normal Ascultation: Bilateral: clear (anteriorly, decreased due to obesity) Percussion: Bilateral: not dull Cardiovascular: regular rate and rhythm (no mrg) Gastrointestinal: normoactive bowel sounds, soft, non-tender, non-distended Integumentary: normal Extremities: pink and warm, edema (2+ bilateral LE edema) Neurologic: normal mental status, non-focal exam, pupils equal and round, CN II- XII normal Psychiatric: mood appropriate, affect normal CBC and BMP: 11/20/18 04:30 11/20/18 04:30 ABG, PT/INR, D-dimer: ABG POC ABG pH 7.507 (7.35-7.45) H 11/16/18 03:53 POC ABG pCO2 34.9 (35-45) L 11/16/18 03:53 POC ABG pO2 133 (80-105) H 11/16/18 03:53 POC ABG HCO3 27.6 (22-26 mml/L) 11/16/18 03:53 POC ABG Total CO2 29 (23-27mmol/L) 11/16/18 03:53 POC ABG O2 Sat 99 11/16/18 03:53 PT/INR, D-dimer PT 23.2 Sec. (12.2-14.9) H 11/19/18 Unknown INR 2.11 (0.87-1.13) H 11/19/18 Unknown Abnormal lab findings: Abnormal Labs 11/08/18 11/08/18 11/08/18 03:09 03:09 05:50 RBC 3.37 L MCV 106 H MCH 34 H RDW 17.1 H Lymph % (Auto) 4.6 L Routt % (Auto) 11.5 H Lymph # 0.2 L Seg Neutrophils % 83.0 H Seg Neuts % (Manual) Lymphocytes % (Manual) Nucleated RBC % Seg Neutrophils # Man Lymphocytes # (Manual) PT INR POC ABG pH POC ABG pCO2 POC ABG pO2 Sodium 135 L Potassium Chloride Carbon Dioxide BUN 29 H Creatinine 1.4 H Glucose POC Glucose Calcium 8.1 L Phosphorus Total Creatine Kinase CK-MB (CK-2) Troponin T 0.042 H 0.039 H Total Protein Albumin LDL Cholesterol Direct 137 H HDL Cholesterol 33 L Lipase Urine Creatinine Urine Total Protein 11/10/18 11/10/18 11/10/18 05:47 07:32 13:08 RBC MCV MCH RDW Lymph % (Auto) Routt % (Auto) Lymph # Seg Neutrophils % Seg Neuts % (Manual) Lymphocytes % (Manual) Nucleated RBC % Seg Neutrophils # Man Lymphocytes # (Manual) PT INR POC ABG pH POC ABG pCO2 POC ABG pO2 Sodium Potassium Chloride Carbon Dioxide 32 H BUN 25 H Creatinine Glucose 104 H POC Glucose 115 H 142 H Calcium 7.9 L Phosphorus Total Creatine Kinase CK-MB (CK-2) Troponin T Total Protein Albumin LDL Cholesterol Direct HDL Cholesterol Lipase Urine Creatinine Urine Total Protein 11/10/18 11/10/18 11/11/18 16:55 21:21 07:51 RBC MCV MCH RDW Lymph % (Auto) Routt % (Auto) Lymph # Seg Neutrophils % Seg Neuts % (Manual) Lymphocytes % (Manual) Nucleated RBC % Seg Neutrophils # Man Lymphocytes # (Manual) PT INR POC ABG pH POC ABG pCO2 POC ABG pO2 Sodium Potassium Chloride Carbon Dioxide BUN Creatinine Glucose POC Glucose 125 H 126 H 118 H Calcium Phosphorus Total Creatine Kinase CK-MB (CK-2) Troponin T Total Protein Albumin LDL Cholesterol Direct HDL Cholesterol Lipase Urine Creatinine Urine Total Protein 11/11/18 11/11/18 11/12/18 12:25 21:32 07:46 RBC MCV MCH RDW Lymph % (Auto) Routt % (Auto) Lymph # Seg Neutrophils % Seg Neuts % (Manual) Lymphocytes % (Manual) Nucleated RBC % Seg Neutrophils # Man Lymphocytes # (Manual) PT INR POC ABG pH POC ABG pCO2 POC ABG pO2 Sodium Potassium Chloride 97.7 L Carbon Dioxide BUN 28 H Creatinine Glucose POC Glucose 125 H 126 H Calcium 8.0 L Phosphorus Total Creatine Kinase CK-MB (CK-2) Troponin T Total Protein Albumin LDL Cholesterol Direct HDL Cholesterol Lipase Urine Creatinine Urine Total Protein 11/12/18 11/12/18 11/13/18 08:57 11:35 05:38 RBC MCV MCH RDW Lymph % (Auto) Routt % (Auto) Lymph # Seg Neutrophils % Seg Neuts % (Manual) Lymphocytes % (Manual) Nucleated RBC % Seg Neutrophils # Man Lymphocytes # (Manual) PT INR POC ABG pH POC ABG pCO2 POC ABG pO2 Sodium Potassium Chloride 97.3 L Carbon Dioxide 31 H BUN 33 H Creatinine 1.5 H Glucose 111 H POC Glucose 120 H 137 H Calcium 7.8 L Phosphorus Total Creatine Kinase CK-MB (CK-2) Troponin T Total Protein Albumin LDL Cholesterol Direct HDL Cholesterol Lipase Urine Creatinine Urine Total Protein 11/13/18 11/14/18 11/15/18 05:38 06:07 06:11 RBC MCV MCH RDW Lymph % (Auto) Routt % (Auto) Lymph # Seg Neutrophils % Seg Neuts % (Manual) Lymphocytes % (Manual) Nucleated RBC % Seg Neutrophils # Man Lymphocytes # (Manual) PT INR POC ABG pH POC ABG pCO2 POC ABG pO2 Sodium 135 L Potassium Chloride 96.8 L Carbon Dioxide BUN 36 H Creatinine 1.9 H Glucose 117 H POC Glucose 128 H Calcium 8.2 L Phosphorus Total Creatine Kinase CK-MB (CK-2) Troponin T Total Protein Albumin LDL Cholesterol Direct HDL Cholesterol Lipase 11 L Urine Creatinine Urine Total Protein 11/15/18 11/15/18 11/15/18 08:50 18:41 18:41 RBC 3.51 L MCV 103 H MCH 34 H RDW 17.4 H Lymph % (Auto) 3.3 L Routt % (Auto) 9.2 H Lymph # 0.2 L Seg Neutrophils % 87.2 H Seg Neuts % (Manual) Lymphocytes % (Manual) Nucleated RBC % Seg Neutrophils # Man Lymphocytes # (Manual) PT INR POC ABG pH 7.533 H POC ABG pCO2 33.9 L POC ABG pO2 237 H Sodium 136 L Potassium Chloride 95.3 L Carbon Dioxide BUN 46 H Creatinine 2.3 H Glucose POC Glucose Calcium 8.3 L Phosphorus Total Creatine Kinase CK-MB (CK-2) Troponin T Total Protein 4.6 L Albumin 1.8 L LDL Cholesterol Direct HDL Cholesterol Lipase Urine Creatinine Urine Total Protein 11/15/18 11/15/18 11/16/18 18:41 18:41 03:53 RBC MCV MCH RDW Lymph % (Auto) Routt % (Auto) Lymph # Seg Neutrophils % Seg Neuts % (Manual) Lymphocytes % (Manual) Nucleated RBC % Seg Neutrophils # Man Lymphocytes # (Manual) PT 18.6 H INR 1.59 H POC ABG pH 7.507 H POC ABG pCO2 34.9 L POC ABG pO2 133 H Sodium Potassium Chloride Carbon Dioxide BUN Creatinine Glucose POC Glucose Calcium Phosphorus Total Creatine Kinase 293 H CK-MB (CK-2) 5.6 H Troponin T 2.830 H* Total Protein Albumin LDL Cholesterol Direct HDL Cholesterol Lipase Urine Creatinine Urine Total Protein 11/16/18 11/16/18 11/16/18 05:35 05:35 09:26 RBC 3.44 L MCV 103 H MCH 34 H RDW 17.3 H Lymph % (Auto) 2.5 L Routt % (Auto) 9.3 H Lymph # 0.2 L Seg Neutrophils % 87.9 H Seg Neuts % (Manual) Lymphocytes % (Manual) Nucleated RBC % Seg Neutrophils # Man Lymphocytes # (Manual) PT INR POC ABG pH POC ABG pCO2 POC ABG pO2 Sodium 135 L Potassium Chloride 95.9 L Carbon Dioxide BUN 47 H Creatinine 2.2 H Glucose POC Glucose Calcium 8.1 L Phosphorus 4.60 H Total Creatine Kinase CK-MB (CK-2) Troponin T Total Protein Albumin LDL Cholesterol Direct HDL Cholesterol Lipase Urine Creatinine 103.3 H Urine Total Protein 11/16/18 11/17/18 11/18/18 09:26 10:42 04:45 RBC 3.41 L 3.50 L MCV 104 H 104 H MCH 34 H 34 H RDW 17.4 H 17.7 H Lymph % (Auto) 4.1 L 4.9 L Routt % (Auto) 9.8 H 7.6 H Lymph # 0.2 L 0.3 L Seg Neutrophils % 85.8 H 87.1 H Seg Neuts % (Manual) Lymphocytes % (Manual) Nucleated RBC % Seg Neutrophils # Man Lymphocytes # (Manual) PT INR POC ABG pH POC ABG pCO2 POC ABG pO2 Sodium Potassium Chloride Carbon Dioxide BUN Creatinine Glucose POC Glucose Calcium Phosphorus Total Creatine Kinase CK-MB (CK-2) Troponin T Total Protein Albumin LDL Cholesterol Direct HDL Cholesterol Lipase Urine Creatinine 102.6 H Urine Total Protein 28 H 11/18/18 11/19/18 11/19/18 04:45 06:48 06:48 RBC 3.63 L MCV 105 H MCH 35 H RDW 17.2 H Lymph % (Auto) 4.0 L Routt % (Auto) Lymph # 0.3 L Seg Neutrophils % 89.3 H Seg Neuts % (Manual) Lymphocytes % (Manual) Nucleated RBC % Seg Neutrophils # Man Lymphocytes # (Manual) PT INR POC ABG pH POC ABG pCO2 POC ABG pO2 Sodium 135 L Potassium 3.5 L Chloride 95.9 L 95.4 L Carbon Dioxide BUN 58 H 64 H Creatinine 2.7 H 3.3 H Glucose 137 H 102 H POC Glucose Calcium 7.7 L 8.0 L Phosphorus 5.00 H 6.10 H D Total Creatine Kinase CK-MB (CK-2) Troponin T Total Protein Albumin LDL Cholesterol Direct HDL Cholesterol Lipase Urine Creatinine Urine Total Protein 11/19/18 11/20/18 11/20/18 Unknown 04:30 04:30 RBC 3.37 L MCV 105 H MCH 34 H RDW 17.5 H Lymph % (Auto) [place] % (Auto) Lymph # Seg Neutrophils % Seg Neuts % (Manual) 93.0 H Lymphocytes % (Manual) 3.0 L Nucleated RBC % 1.0 H Seg Neutrophils # Man 8.1 H Lymphocytes # (Manual) 0.3 L PT 23.2 H INR 2.11 H POC ABG pH POC ABG pCO2 POC ABG pO2 Sodium 136 L Potassium Chloride 95.5 L Carbon Dioxide BUN 72 H Creatinine 3.6 H Glucose POC Glucose Calcium 8.1 L Phosphorus 6.60 H Total Creatine Kinase CK-MB (CK-2) Troponin T Total Protein Albumin LDL Cholesterol Direct HDL Cholesterol Lipase Urine Creatinine Urine Total Protein Chest x-ray: report reviewed, image reviewed
--- NOTE | 2018-11-20 15:41 | Event Note ---
Date: 11/20/18 Ordered mesenteric duplex. History of upper gi bleeding from ulcers. Will await results, but unlikely to intervene due to significant underlying issues.
[2018-11-20] MEDS ORDERED: NACL 0.9% 1000 ML 1,000 ML IV ONE (17:57)
[2018-11-20] MEDS ORDERED: NACL 0.9% ONE (19:15)
[2018-11-20] MEDS ORDERED: ADRENALIN ONE (19:15)
[2018-11-20] MEDS ORDERED: LEVOPHED IV ONE (19:15)
--- NOTE | 2018-11-20 19:31 | Event Note ---
Date: 11/20/18 Called to see [facility] patient secondary to her being in cardiac Arrest. CPR initiated prior to my arrivalk. Glu checked prior to my arrival and was wnl. Patient given Epi secondary to being pulseless. patient intubated by me with 7.5 ETT. 22 at lip. patient noted to have some agonal resp during the intubation. monitor showing asytole but monitor set on "paddles". Once switched to leads patient in NSR. order for BP to be taken. hospitalist at bedside and has taken over.
--- NOTE | 2018-11-20 20:22 | XRay Report ---
CHEST 1 VIEW 11/20/2018 7:45 PM INDICATION / CLINICAL INFORMATION: respiratory arrest. COMPARISON: 11/16/18 FINDINGS: Patient is rotated to the left. SUPPORT DEVICES: Endotracheal tube and right PICC are unchanged. HEART / MEDIASTINUM: Enlarged but stable. Left dual-lead AICD is unchanged. LUNGS / PLEURA: Left base density is unchanged. Slight increase in right upper lobe density. No pneum othorax. ADDITIONAL FINDINGS: No significant additional findings. IMPRESSION: 1. Subtle increase in right upper lobe parenchymal density with stable left lung base density. Signer Name: Betty Velez MD Signed: 11/20/2018 8:17 PM Workstation Name: [id number]
[2018-11-20] MEDS ORDERED: ARTIFICIAL TEARS OPHTH OINT OU PRN (20:27)
[2018-11-20] MEDS ORDERED: VASELINE LIP THERAPY TP PRN (20:27)
[2018-11-20 20:29] LABS: Hematocrit 36.7 % (30.3-42.9); Hemoglobin 11.6 gm/dl (10.1-14.3)
[2018-11-20] MEDS: LEVOPHED DRIP 4 MG/NS 250 ML 4 MG/250 ML BAG IV SCH (20:30)
[2018-11-20] MEDS ORDERED: MIDAZOLAM 100 MG in NACL 0.9% 80 ML IV SCH (21:00)
[2018-11-20] MEDS ORDERED: LEVOPHED DRIP 4 MG/NS 250 ML 4 MG/250 ML BAG IV SCH (21:00)
[2018-11-20] MEDS: DIPRIVAN 10 MG/ML 1,000 MG/100 ML BOTTLE IV SCH (21:23)
[2018-11-20 21:34] LABS: Albumin 2.3 g/dL (3.9-5)
[2018-11-20] MEDS ORDERED: D50W (25GM) Syringe IV PRN (21:45)
[2018-11-20] MEDS: PROVENTIL IH PRN (22:07)
[2018-11-20] MEDS: VERSED IV PRN (22:35)
[2018-11-20] MEDS ORDERED: SODIUM BICARBONATE 150 MEQ in D5W 1,000 ML IV SCH (23:00)
[2018-11-21] MEDS: LEVOPHED DRIP 4 MG/NS 250 ML 4 MG/250 ML BAG IV SCH ×3 (03:05→21:47)
--- NOTE | 2018-11-21 03:08 | XRay Report ---
CHEST 1 VIEW INDICATION / CLINICAL INFORMATION: follow up respiratory failure. COMPARISON: 11/20/2018 FINDINGS: SUPPORT DEVICES: PICC line remains in place as well as endotracheal tube. Endotracheal tube is now lo w in position in the upper portion of the right mainstem bronchus and needs withdrawn approximately 3 cm. ICD remains in place on the left. HEART / MEDIASTINUM: Moderate cardiomegaly is unchanged. LUNGS / PLEURA: The right lung is now nearly clear. Moderate density remains at the left base. No pne umothorax. ADDITIONAL FINDINGS: No significant additional findings. IMPRESSION: 1 Endotracheal tube low in position. Signer Name: Rikki Landers MD Signed: 11/21/2018 3:04 AM Workstation Name: [id number]
[2018-11-21] MEDS: VERSED IV PRN (04:08)
[2018-11-21 06:12] LABS: Hematocrit 37.5 % (30.3-42.9); Hemoglobin 12.3 gm/dl (10.1-14.3); Mean Corpuscular HGB Conc 33 % (30-34); Mean Corpuscular Volume 103 fl (79-97); Platelet Count 267 K/mm3 (140-440); Red Blood Count 3.65 M/mm3 (3.65-5.03); Red Cell Distribution Width 16.9 % (13.2-15.2)
[2018-11-21 06:32] LABS: Calcium 7.9 mg/dL (8.4-10.2)
[2018-11-21] MEDS: CARAFATE PO SCH ×3 (09:00→18:00)
[2018-11-21 09:29] LABS: Anisocytosis 1+; Basophils % (Manual) 0 % (0.0-1.8); Eosinophils % (Manual) 0 % (0.0-4.3); Poikilocytosis 1+; Total Cells Counted 100
[2018-11-21 09:30] LABS: Ovalocytes Few; Platelet Estimate Consistent w Auto
[2018-11-21] MEDS: WELLBUTRIN PO SCH (10:00)
[2018-11-21] MEDS ORDERED: ZAROXOLYN PO SCH (10:00)
--- NOTE | 2018-11-21 10:39 | Progress Note ---
Assessment and Plan Acute on Chronic systolic heart failure Suspect non-compliance Multiple HF admission Lower GI bleed - per GI s/p Cardiopulmonary arrest 11/15 device interrogation revealed no activity Acute renal failure Ascites Patient had paracentesis in previous admissions Hx of LUE DVT Hx of coronary artery disease cardiac cath 03/2018 revealed patent SVG to LAD, patent SVG to OM, patent SVG to PDA and patent diagonal stent, LVEF 10-15%. Non-specific troponin Hx of Ischemic cardiomyopathy ejection fraction 10-15% by echo 08/2018 Presence of single chamber cardiac defibrillator underlying paroxysmal atrial fibrillation. Eliquis discontinued due to lower GI bleed. on amiodarone and metoprolol for suppression. Tobacco abuse Recommendations: We will initiate dobutamine for further management. Subjective Date of service: 11/21/18 Principal diagnosis: blood in stool Interval history: Code Blue called overnight. Patient went unresponsive with agonal breathing and hypotension. Noted with multiple metabolic abnormalities. She is currently in the CCU on the vent and pressors. Objective Vital Signs Temp Pulse Pulse Pulse Resp Resp BP 11/21/18 10:00 91 H 18 113/62 11/21/18 09:51 85 18 109/71 11/21/18 09:41 101 H 18 117/65 11/21/18 09:30 84 17 117/65 11/21/18 09:20 76 19 109/71 11/21/18 09:11 83 18 103/65 11/21/18 09:05 85 95 H 18 11/21/18 09:00 94 H 19 103/65 11/21/18 08:51 78 18 116/63 11/21/18 08:41 82 17 119/65 11/21/18 08:30 85 18 119/65 11/21/18 08:20 80 20 134/47 11/21/18 08:11 77 18 117/54 11/21/18 08:00 82 18 117/54 11/21/18 07:50 89 18 130/52 11/21/18 07:47 72 132/66 11/21/18 07:41 83 18 132/66 11/21/18 07:31 74 18 132/66 11/21/18 07:21 101 H 17 123/59 11/21/18 07:11 65 17 113/76 11/21/18 07:01 85 14 113/76 11/21/18 06:51 72 20 115/47 11/21/18 06:41 76 17 129/46 11/21/18 06:31 73 22 129/46 11/21/18 06:21 82 13 134/47 11/21/18 06:11 78 19 127/56 11/21/18 06:00 97.9 F 72 17 127/56 11/21/18 05:51 74 18 138/50 11/21/18 05:41 68 18 135/70 11/21/18 05:31 72 18 135/70 11/21/18 05:21 73 19 132/79 11/21/18 05:11 76 21 117/41 11/21/18 05:01 72 16 117/41 11/21/18 04:51 75 13 107/77 11/21/18 04:44 66 128/49 11/21/18 04:41 68 26 H 125/57 11/21/18 04:30 76 23 117/61 11/21/18 04:21 69 26 H 125/57 11/21/18 04:11 67 26 H 128/49 11/21/18 04:00 66 15 128/49 11/21/18 03:51 71 18 122/58 11/21/18 03:41 63 16 142/47 11/21/18 03:31 84 19 138/105 11/21/18 03:21 70 26 H 142/47 11/21/18 03:11 67 26 H 118/64 11/21/18 03:01 85 26 H 121/51 11/21/18 02:51 64 26 H 135/65 11/21/18 02:41 67 26 H 133/58 11/21/18 02:31 87 16 118/64 11/21/18 02:21 66 22 133/58 11/21/18 02:11 64 26 H 137/39 11/21/18 02:01 65 26 H 133/53 11/21/18 01:51 65 26 H 135/40 11/21/18 01:41 67 26 H 125/53 11/21/18 01:30 67 26 H 137/39 11/21/18 01:21 62 26 H 125/53 11/21/18 01:11 67 26 H 90/20 11/21/18 01:01 62 26 H 127/55 11/21/18 00:51 64 26 H 90/20 11/21/18 00:41 67 26 H 152/44 11/21/18 00:31 63 26 H 152/44 11/21/18 00:21 61 12 145/46 11/21/18 00:11 64 0 L 110/38 11/21/18 00:00 97.3 F L 65 24 133/58 11/20/18 23:51 68 26 H 147/102 11/20/18 23:43 60 0 L 92/69 11/20/18 23:41 60 19 92/69 11/20/18 23:31 63 26 H 110/38 11/20/18 23:30 56 L 22 92/69 11/20/18 23:21 63 26 H 92/69 11/20/18 23:11 70 26 H 142/45 11/20/18 23:00 78 26 H 146/82 11/20/18 22:51 88 26 H 146/82 11/20/18 22:41 114 H 26 H 146/82 11/20/18 22:31 11 L 119/68 11/20/18 22:21 69 11 L 100/47 11/20/18 22:11 95 H 23 146/82 11/20/18 22:08 78 26 H 11/20/18 22:01 96 H 26 H 104/81 11/20/18 22:00 64 26 H 11/20/18 21:51 106 H 26 H 83/50 11/20/18 21:41 105 H 14 63/40 11/20/18 21:31 94 H 18 63/40 11/20/18 21:21 95 H 18 92/68 11/20/18 21:11 95 H 24 92/74 11/20/18 21:01 108 H 20 92/74 11/20/18 20:51 109 H 19 69/43 11/20/18 20:41 102 H 21 92/74 11/20/18 20:31 95 H 17 92/74 11/20/18 20:21 104 H 23 88/73 11/20/18 20:12 117 H 21 11/20/18 19:47 98 H 123/99 11/20/18 17:34 97.3 F L 77 20 129/65 Pulse Ox 11/21/18 10:00 100 11/21/18 09:51 100 08/09/19 09:41 100 11/21/18 09:30 100 11/21/18 09:20 100 11/21/18 09:11 100 11/21/18 09:05 100 11/21/18 09:00 100 11/21/18 08:51 100 11/21/18 08:41 99 11/21/18 08:30 100 11/21/18 08:20 99 11/21/18 08:11 99 11/21/18 08:00 99 11/21/18 07:50 100 11/21/18 07:47 100 11/21/18 07:41 100 11/21/18 07:31 11/21/18 07:21 11/21/18 07:11 11/21/18 07:01 11/21/18 06:51 11/21/18 06:41 11/21/18 06:31 11/21/18 06:21 11/21/18 06:11 11/21/18 06:00 11/21/18 05:51 11/21/18 05:41 11/21/18 05:31 11/21/18 05:21 11/21/18 05:11 11/21/18 05:01 11/21/18 04:51 11/21/18 04:44 98 11/21/18 04:41 11/21/18 04:30 11/21/18 04:21 11/21/18 04:11 11/21/18 04:00 11/21/18 03:51 11/21/18 03:41 11/21/18 03:31 11/21/18 03:21 11/21/18 03:11 11/21/18 03:01 11/21/18 02:51 11/21/18 02:41 11/21/18 02:31 11/21/18 02:21 11/21/18 02:11 11/21/18 02:01 11/21/18 01:51 11/21/18 01:41 11/21/18 01:30 11/21/18 01:21 100 11/21/18 01:11 100 11/21/18 01:01 100 11/21/18 00:51 100 11/21/18 00:41 100 11/21/18 00:31 100 11/21/18 00:21 11/21/18 00:11 100 11/21/18 00:00 98 11/20/18 23:51 100 11/20/18 23:43 100 11/20/18 23:41 100 11/20/18 23:31 100 11/20/18 23:30 100 11/20/18 23:21 100 11/20/18 23:11 100 11/20/18 23:00 100 11/20/18 22:51 100 11/20/18 22:41 11/20/18 22:31 75 L 11/20/18 22:21 11/20/18 22:11 11/20/18 22:08 11/20/18 22:01 11/20/18 22:00 11/20/18 21:51 11/20/18 21:41 11/20/18 21:31 11/20/18 21:21 82 L 11/20/18 21:11 11/20/18 21:01 11/20/18 20:51 11/20/18 20:41 72 L 11/20/18 20:31 82 L 11/20/18 20:21 11/20/18 20:12 11/20/18 19:47 11/20/18 17:34 100 - Physical Examination General: Other (on the vent) HEENT: Positive: PERRL Neck: Positive: trachea midline Cardiac: Positive: irregularly irregular Neuro: Positive: Grossly Intact Extremities: Present: +1 Edema - Labs and Meds Cardiac Enzymes 11/20/18 Range/Units Unknown AST 57 H (5-40) units/L CBC 11/20/18 11/21/18 Range/Units 20:06 05:55 WBC 12.2 H (4.5-11.0) K/mm3 RBC 3.65 (3.65-5.03) M/mm3 Hgb 11.6 12.3 (10.1-14.3) gm/dl Hct 36.7 37.5 (30.3-42.9) % Plt Count 267 (140-440) K/mm3 Comprehensive Metabolic Panel 11/20/18 11/21/18 Range/Units Unknown 05:55 Sodium 134 L 136 L (137-145) mmol/L Potassium 5.5 H D 4.0 D (3.6-5.0) mmol/L Chloride 93.4 L 94.2 L (98-107) mmol/L Carbon Dioxide 17 L D 25 D (22-30) mmol/L BUN 72 H 76 H (7-17) mg/dL Creatinine 4.2 H 4.3 H (0.7-1.2) mg/dL Glucose 80 134 H (65-100) mg/dL Calcium 8.0 L 7.9 L (8.4-10.2) mg/dL AST 57 H (5-40) units/L ALT 25 (7-56) units/L Alkaline Phosphatase 53 (35-129) units/L Total Protein 4.2 L (6.3-8.2) g/dL Albumin 2.3 L (3.9-5) g/dL
--- NOTE | 2018-11-21 11:04 | Progress Note ---
Assessment and Plan Given the patient's current medical condition, it is doubtful that she would able to tolerate any intervention. She has no evidence of GI bleeding. CT of the abdomen and pelvis was performed without contrast. No obvious signs of mesenteric ischemia. Would consider consulting hospice. Subjective Date of service: 11/21/18 Principal diagnosis: blood in stool Interval history: Patient with a history of maroon-colored stools noted 2 days ago. She underwent a GI bleeding scan which has been negative. Additionally, the patient's H&H are stable. Concern for hypertension during code resulting in mesenteric ischemia. CT scan of the abdomen and pelvis was performed which demonstrates diffuse anasarca and ascites as well as pleural effusions. Additionally, the patient has cardiomegaly. Patient's bowel is relatively decompressed. The patient coded yesterday evening and is currently nonresponsive Objective - Constitutional Vitals: Vital Signs - 12hr 11/20/18 11/20/18 11/20/18 23:11 23:21 23:30 Temperature Pulse Rate 70 63 56 L Pulse Rate [ From Monitor] Respiratory 26 H 26 H 22 Rate Blood Pressure 142/45 92/69 92/69 O2 Sat by Pulse 100 100 100 Oximetry 11/20/18 11/20/18 11/20/18 23:31 23:41 23:43 Temperature Pulse Rate 63 60 60 Pulse Rate [ From Monitor] Respiratory 26 H 19 0 L Rate Blood Pressure 110/38 92/69 92/69 O2 Sat by Pulse 100 100 100 Oximetry 11/20/18 11/21/18 11/21/18 23:51 00:00 00:11 Temperature 97.3 F L Pulse Rate 68 65 64 Pulse Rate [ From Monitor] Respiratory 26 H 24 0 L Rate Blood Pressure 147/102 133/58 110/38 O2 Sat by Pulse 100 98 100 Oximetry 11/21/18 11/21/18 11/21/18 00:21 00:31 00:41 Temperature Pulse Rate 61 63 67 Pulse Rate [ From Monitor] Respiratory 12 26 H 26 H Rate Blood Pressure 145/46 152/44 152/44 O2 Sat by Pulse 100 100 Oximetry 11/21/18 11/21/18 11/21/18 00:51 01:01 01:11 Temperature Pulse Rate 64 62 67 Pulse Rate [ From Monitor] Respiratory 26 H 26 H 26 H Rate Blood Pressure 90/20 127/55 90/20 O2 Sat by Pulse 100 100 100 Oximetry 11/21/18 11/21/18 11/21/18 01:21 01:30 01:41 Temperature Pulse Rate 62 67 67 Pulse Rate [ From Monitor] Respiratory 26 H 26 H 26 H Rate Blood Pressure 125/53 137/39 125/53 O2 Sat by Pulse 100 Oximetry 11/21/18 11/21/18 11/21/18 01:51 02:01 02:11 Temperature Pulse Rate 65 65 64 Pulse Rate [ From Monitor] Respiratory 26 H 26 H 26 H Rate Blood Pressure 135/40 133/53 137/39 O2 Sat by Pulse Oximetry 11/21/18 11/21/18 11/21/18 02:21 02:31 02:41 Temperature Pulse Rate 66 87 67 Pulse Rate [ From Monitor] Respiratory 22 16 26 H Rate Blood Pressure 133/58 118/64 133/58 O2 Sat by Pulse Oximetry 11/21/18 11/21/18 11/21/18 02:51 03:01 03:11 Temperature Pulse Rate 64 85 67 Pulse Rate [ From Monitor] Respiratory 26 H 26 H 26 H Rate Blood Pressure 135/65 121/51 118/64 O2 Sat by Pulse Oximetry 11/21/18 11/21/18 11/21/18 03:21 03:31 03:41 Temperature Pulse Rate 70 84 63 Pulse Rate [ From Monitor] Respiratory 26 H 19 16 Rate Blood Pressure 142/47 138/105 142/47 O2 Sat by Pulse Oximetry 11/21/18 11/21/18 11/21/18 03:51 04:00 04:11 Temperature Pulse Rate 71 66 67 Pulse Rate [ From Monitor] Respiratory 18 15 26 H Rate Blood Pressure 122/58 128/49 128/49 O2 Sat by Pulse Oximetry 11/21/18 11/21/18 11/21/18 04:21 04:30 04:41 Temperature Pulse Rate 69 76 68 Pulse Rate [ From Monitor] Respiratory 26 H 23 26 H Rate Blood Pressure 125/57 117/61 125/57 O2 Sat by Pulse Oximetry 11/21/18 11/21/18 11/21/18 04:44 04:51 05:01 Temperature Pulse Rate 66 75 72 Pulse Rate [ From Monitor] Respiratory 13 16 Rate Blood Pressure 128/49 107/77 117/41 O2 Sat by Pulse 98 Oximetry 11/21/18 11/21/18 11/21/18 05:11 05:21 05:31 Temperature Pulse Rate 76 73 72 Pulse Rate [ From Monitor] Respiratory 21 19 18 Rate Blood Pressure 117/41 132/79 135/70 O2 Sat by Pulse Oximetry 11/21/18 11/21/18 11/21/18 05:41 05:51 06:00 Temperature 97.9 F Pulse Rate 68 74 72 Pulse Rate [ From Monitor] Respiratory 18 18 17 Rate Blood Pressure 135/70 138/50 127/56 O2 Sat by Pulse Oximetry 11/21/18 11/21/18 11/21/18 06:11 06:21 06:31 Temperature Pulse Rate 78 82 73 Pulse Rate [ From Monitor] Respiratory 19 13 22 Rate Blood Pressure 127/56 134/47 129/46 O2 Sat by Pulse Oximetry 11/21/18 11/21/18 11/21/18 06:41 06:51 07:01 Temperature Pulse Rate 76 72 85 Pulse Rate [ From Monitor] Respiratory 17 20 14 Rate Blood Pressure 129/46 115/47 113/76 O2 Sat by Pulse Oximetry 11/21/18 11/21/18 11/21/18 07:11 07:21 07:31 Temperature Pulse Rate 65 101 H 74 Pulse Rate [ From Monitor] Respiratory 17 17 18 Rate Blood Pressure 113/76 123/59 132/66 O2 Sat by Pulse Oximetry 11/21/18 11/21/18 11/21/18 07:41 07:47 07:50 Temperature Pulse Rate 83 72 89 Pulse Rate [ From Monitor] Respiratory 18 18 Rate Blood Pressure 132/66 132/66 130/52 O2 Sat by Pulse 100 100 100 Oximetry 11/21/18 11/21/18 11/21/18 08:00 08:11 08:20 Temperature Pulse Rate 82 77 80 Pulse Rate [ From Monitor] Respiratory 18 18 20 Rate Blood Pressure 117/54 117/54 134/47 O2 Sat by Pulse 99 99 99 Oximetry 11/21/18 11/21/18 11/21/18 08:30 08:41 08:51 Temperature Pulse Rate 85 82 78 Pulse Rate [ From Monitor] Respiratory 18 17 18 Rate Blood Pressure 119/65 119/65 116/63 O2 Sat by Pulse 100 99 100 Oximetry 11/21/18 11/21/18 11/21/18 09:00 09:05 09:11 Temperature Pulse Rate 94 H 85 83 Pulse Rate [ 95 H From Monitor] Respiratory 19 18 18 Rate Blood Pressure 103/65 103/65 O2 Sat by Pulse 100 100 100 Oximetry 11/21/18 11/21/18 11/21/18 09:20 09:30 09:41 Temperature Pulse Rate 76 84 101 H Pulse Rate [ From Monitor] Respiratory 19 17 18 Rate Blood Pressure 109/71 117/65 117/65 O2 Sat by Pulse 100 100 100 Oximetry 11/21/18 11/21/18 09:51 10:00 Temperature Pulse Rate 85 91 H Pulse Rate [ From Monitor] Respiratory 18 18 Rate Blood Pressure 109/71 113/62 O2 Sat by Pulse 100 100 Oximetry General appearance: Present: other (intubated) - Respiratory Respiratory effort: other (intubated) - Breasts Breasts: swelling Extremity abnormal: edema - Gastrointestinal General gastrointestinal: Present: distended Rectal Exam: deferred - Genitourinary Female genitourinary: deferred - Labs CBC & Chem 7: 11/21/18 05:55 11/21/18 05:55 Labs: Abnormal lab results 11/20/18 11/20/18 11/20/18 Range/Units 01:15 19:25 21:33 WBC (4.5-11.0) K/mm3 MCV (79-97) fl MCH (28-32) pg RDW (13.2-15.2) % Seg Neuts % (Manual) (40.0-70.0) % Lymphocytes % (Manual) (13.4-35.0) % Seg Neutrophils # Man (1.8-7.7) K/mm3 Lymphocytes # (Manual) (1.2-5.4) K/mm3 POC ABG pH 7.228 L (7.35-7.45) POC ABG pCO2 30.5 L (35-45) POC ABG pO2 160 H (80-105) Sodium (137-145) mmol/L Potassium (3.6-5.0) mmol/L Chloride (98-107) mmol/L Carbon Dioxide (22-30) mmol/L BUN (7-17) mg/dL Creatinine (0.7-1.2) mg/dL Glucose (65-100) mg/dL POC Glucose 106 H (70-105) Lactic Acid 4.30 H* (0.7-2.0) mmol/L Calcium (8.4-10.2) mg/dL Phosphorus (2.5-4.5) mg/dL AST (5-40) units/L Troponin T (0.00-0.029) ng/mL Total Protein (6.3-8.2) g/dL Albumin (3.9-5) g/dL 11/20/18 11/20/18 11/20/18 Range/Units 21:50 22:11 22:20 WBC (4.5-11.0) K/mm3 MCV (79-97) fl MCH (28-32) pg RDW (13.2-15.2) % Seg Neuts % (Manual) (40.0-70.0) % Lymphocytes % (Manual) (13.4-35.0) % Seg Neutrophils # Man (1.8-7.7) K/mm3 Lymphocytes # (Manual) (1.2-5.4) K/mm3 POC ABG pH (7.35-7.45) POC ABG pCO2 (35-45) POC ABG pO2 (80-105) Sodium (137-145) mmol/L Potassium (3.6-5.0) mmol/L Chloride (98-107) mmol/L Carbon Dioxide (22-30) mmol/L BUN (7-17) mg/dL Creatinine (0.7-1.2) mg/dL Glucose (65-100) mg/dL POC Glucose 64 L 110 H (70-105) Lactic Acid 8.40 H* (0.7-2.0) mmol/L Calcium (8.4-10.2) mg/dL Phosphorus (2.5-4.5) mg/dL AST (5-40) units/L Troponin T (0.00-0.029) ng/mL Total Protein (6.3-8.2) g/dL Albumin (3.9-5) g/dL 11/20/18 11/20/18 11/21/18 Range/Units 22:20 Unknown 04:52 WBC (4.5-11.0) K/mm3 MCV (79-97) fl MCH (28-32) pg RDW (13.2-15.2) % Seg Neuts % (Manual) (40.0-70.0) % Lymphocytes % (Manual) (13.4-35.0) % Seg Neutrophils # Man (1.8-7.7) K/mm3 Lymphocytes # (Manual) (1.2-5.4) K/mm3 POC ABG pH 7.643 H (7.35-7.45) POC ABG pCO2 (35-45) POC ABG pO2 161 H (80-105) Sodium 134 L (137-145) mmol/L Potassium 5.5 H D (3.6-5.0) mmol/L Chloride 93.4 L (98-107) mmol/L Carbon Dioxide 17 L D (22-30) mmol/L BUN 72 H (7-17) mg/dL Creatinine 4.2 H (0.7-1.2) mg/dL Glucose (65-100) mg/dL POC Glucose (70-105) Lactic Acid (0.7-2.0) mmol/L Calcium 8.0 L (8.4-10.2) mg/dL Phosphorus (2.5-4.5) mg/dL AST 57 H (5-40) units/L Troponin T 3.550 H* (0.00-0.029) ng/mL Total Protein 4.2 L (6.3-8.2) g/dL Albumin 2.3 L (3.9-5) g/dL 11/21/18 11/21/18 11/21/18 Range/Units 05:55 05:55 05:55 WBC 12.2 H (4.5-11.0) K/mm3 MCV 103 H (79-97) fl MCH 34 H (28-32) pg RDW 16.9 H (13.2-15.2) % Seg Neuts % (Manual) 96.0 H (40.0-70.0) % Lymphocytes % (Manual) 2.0 L (13.4-35.0) % Seg Neutrophils # Man 11.7 H (1.8-7.7) K/mm3 Lymphocytes # (Manual) 0.2 L (1.2-5.4) K/mm3 POC ABG pH (7.35-7.45) POC ABG pCO2 (35-45) POC ABG pO2 (80-105) Sodium 136 L (137-145) mmol/L Potassium (3.6-5.0) mmol/L Chloride 94.2 L (98-107) mmol/L Carbon Dioxide (22-30) mmol/L BUN 76 H (7-17) mg/dL Creatinine 4.3 H (0.7-1.2) mg/dL Glucose 134 H (65-100) mg/dL POC Glucose (70-105) Lactic Acid 2.70 H* (0.7-2.0) mmol/L Calcium 7.9 L (8.4-10.2) mg/dL Phosphorus 5.90 H (2.5-4.5) mg/dL AST (5-40) units/L Troponin T (0.00-0.029) ng/mL Total Protein (6.3-8.2) g/dL Albumin (3.9-5) g/dL 11/21/18 11/21/18 11/21/18 Range/Units 06:00 06:14 07:53 WBC (4.5-11.0) K/mm3 MCV (79-97) fl MCH (28-32) pg RDW (13.2-15.2) % Seg Neuts % (Manual) (40.0-70.0) % Lymphocytes % (Manual) (13.4-35.0) % Seg Neutrophils # Man (1.8-7.7) K/mm3 Lymphocytes # (Manual) (1.2-5.4) K/mm3 POC ABG pH 7.516 H (7.35-7.45) POC ABG pCO2 30.4 L (35-45) POC ABG pO2 118 H (80-105) Sodium (137-145) mmol/L Potassium (3.6-5.0) mmol/L Chloride (98-107) mmol/L Carbon Dioxide (22-30) mmol/L BUN (7-17) mg/dL Creatinine (0.7-1.2) mg/dL Glucose (65-100) mg/dL POC Glucose 154 H (70-105) Lactic Acid 2.50 H* (0.7-2.0) mmol/L Calcium (8.4-10.2) mg/dL Phosphorus (2.5-4.5) mg/dL AST (5-40) units/L Troponin T (0.00-0.029) ng/mL Total Protein (6.3-8.2) g/dL Albumin (3.9-5) g/dL Medications & Allergies - Medications Allergies/Adverse Reactions: Allergies lisinopril Allergy (Verified 02/24/18 09:15) Anaphylaxis Penicillins Allergy (Verified 02/24/18 09:15) Seizure Sulfa (Sulfonamide Antibiotics) Adverse Reaction (Verified 02/24/18 09:15) Hives Home Medications: Home Medications Medication Instructions Recorded Confirmed Last Taken Type Aspirin [Adult Aspirin] 81 mg PO DAILY 02/24/18 11/08/18 05/09/18 History Spironolactone [Aldactone] 25 mg PO QDAY 02/24/18 11/08/18 05/09/18 History buPROPion SR [Wellbutrin SR] 150 mg PO BID 02/24/18 11/08/18 05/09/18 History Albuterol Sulfate [Ventolin HFA] 1 puff IH Q6H PRN 30 Days 03/03/18 11/08/18 05/09/18 Rx [email or web address] Cyclobenzaprine [Flexeril 10 MG 10 mg PO TID PRN 05/10/18 11/08/18 05/09/18 History TAB] Diphenhydramine HCl [Allergy 25 mg PO DAILY 05/10/18 11/08/18 05/09/18 History Relief] ISOSORBIDE MONOnitrate [Imdur ER] 60 mg PO QDAY 05/10/18 11/08/18 05/09/18 History Sertraline HCl [Zoloft] 50 mg PO DAILY 05/10/18 11/08/18 05/09/18 History hydrALAZINE [Apresoline TAB] 25 mg PO Q8HR 05/10/18 11/08/18 05/09/18 History Apixaban [Eliquis] 5 mg PO Q12HR #60 tablet 07/02/18 11/08/18 Unknown Rx Pantoprazole [Protonix TAB] 40 mg PO QDAY #30 tablet 07/02/18 11/08/18 Unknown Rx Polyethylene Glycol 3350 [Miralax 17 gm PO BID PRN #30 powd.pack 07/02/18 11/08/18 Unknown Rx 3350] Carvedilol [Coreg] 3.125 mg PO BID #60 tablet 09/10/18 11/08/18 Unknown Rx Magnesium Oxide [Mag-Ox] 400 mg PO QDAY #7 tablet 10/04/18 11/08/18 Unknown Rx Potassium Chloride [K-Dur] 20 meq PO QDAY #7 tablet 10/04/18 11/08/18 Unknown Rx Torsemide [Demadex] 40 mg PO BID #60 tablet 10/04/18 11/08/18 Unknown Rx metOLazone [Zaroxolyn] 5 mg PO QDAY #30 tablet 10/04/18 11/08/18 Unknown Rx Active Medications: Generic Name Dose Route Start Last Admin Trade Name Freq PRN Reason Stop Dose Admin Albuterol 2.5 mg 11/09/18 08:00 11/20/18 22:07 Proventil IH 2.5 mg Q4HRT PRN Administration Shortness Of Breath Amiodarone HCl 200 mg 11/10/18 22:00 11/20/18 22:48 Cordarone PO Not Given BID RADHA Aspirin 81 mg 11/09/18 10:00 11/20/18 09:42 Halfprin Ec PO 81 mg DAILY RADHA Administration Atorvastatin Calcium 40 mg 11/11/18 22:00 11/20/18 22:49 Lipitor PO Not Given QHS RADHA Bupropion HCl 150 mg 11/21/18 10:00 Wellbutrin PO BID RADHA Dextrose 50 ml 11/20/18 21:45 D50w (25gm) Syringe IV PRN PRN Hypoglycemia Hydromorphone HCl 0.5 mg 11/19/18 11:21 Dilaudid IV Q3H PRN Pain , Severe (7-10) Hydrophilic Ointment 1 applic 11/20/18 20:27 Vaseline Lip Therapy TP Q2HR PRN Dry Lips Norepinephrine 4 mg in 250 mls @ 7.5 mls/hr 11/20/18 21:00 11/21/18 08:58 Levophed Drip 4 Mg/Ns 250 Ml IV 12 mcg/min TITR RADHA 45 mls/hr Administration Protocol 2 MCG/MIN Propofol 1,000 mg in 100 mls @ 3.648 mls/hr 11/20/18 21:00 11/21/18 07:50 Diprivan 10 Mg/Ml IV 5 mcg/kg/min TITR RADHA 3.648 mls/hr Titration Protocol 5 MCG/KG/MIN Sodium Bicarbonate 150 meq/ 1,150 mls @ 75 mls/hr 11/20/18 23:00 11/20/18 22:48 Dextrose IV 75 mls/hr DIRECT RADHA Administration Dobutamine HCl/Dextrose 500 mg in 250 mls @ 9.12 mls/hr 11/21/18 11:00 Dobutrex Drip 500mg/D5w 250ml IV DIRECT RADHA Protocol 2.5 MCG/KG/MIN Metoprolol Tartrate 2.5 mg 11/21/18 09:18 Lopressor IV Q6HR PRN Tachyarrhythmias Midazolam HCl 2 mg 11/20/18 20:27 11/21/18 04:08 Versed IV 2 mg Q10MIN PRN Administration Sedation Multi-Ingred Cream/Lotion/Oil/Oint 1 applic 11/20/18 20:27 Artificial Tears Ophth Oint OU Q4HR PRN Dry Eye(s) Ondansetron HCl 4 mg 11/11/18 13:44 11/18/18 17:51 Zofran IV 4 mg Q8H PRN Administration Nausea And Vomiting Pantoprazole Sodium 40 mg 11/21/18 10:00 Protonix IV QDAY RADHA Polyethylene Glycol 17 gm 11/09/18 10:00 Miralax 3350 PO BID PRN Constipation Sertraline HCl 50 mg 11/09/18 10:00 11/20/18 09:41 Zoloft PO 50 mg DAILY RADHA Administration Simethicone 80 mg 11/12/18 11:49 11/15/18 04:05 Mylicon PO 80 mg Q6H PRN Administration Gas pain Sucralfate 1 gm 11/12/18 16:30 11/20/18 22:48 Carafate PO Not Given ACHS RADHA
--- NOTE | 2018-11-21 11:23 | Cat Scan Report ---
CT ABDOMEN AND PELVIS WITHOUT CONTRAST HISTORY: Abdominal pain, bloody stools COMPARISON: 09/27/2008 TECHNIQUE: Axial CT images were obtained through the abdomen and pelvis without IV contrast. Sagittal and coronal reformatted images. All CT scans at this location are performed using CT dose reduction for ALARA by means of automated exposure control. FINDINGS: CT ABDOMEN: Lung Bases: Moderate to severe cardiomegaly and pacemaker device are noted. Small to medium bilateral layering pleural effusions are identified. There is mild compressive atelectasis in both lower lobes . Liver: No significant abnormality. Biliary: There is dense material in the gallbladder which could represent vicarious excretion of cont rast agent. No evidence for cholelithiasis or biliary dilatation on CT. Spleen: No significant abnormality. Unenlarged. Pancreas: No significant abnormality. Adrenals: No significant abnormality. Kidneys: Both kidneys are normal size, contour and position. A 4 mm calyceal stone is identified in t he mid right kidney. The ureters are normal course and caliber. Lymphatics: No lymphadenopathy. Vasculature: Diffuse aortic and major vascular branches calcifications are noted. No aneurysm. Bowel/Peritoneum: No evidence for bowel obstruction or focal inflammation. Appendix is not confidentl y identified. CT PELVIS: : Hysterectomy changes are suspected. A Harirson catheter decompresses the bladder. Osseous Structures: Intact. Moderate thoracolumbar spondylosis. Additional Findings: There is moderate to large ascites and diffuse subcutaneous edema suggesting mirela sarca. IMPRESSION: Cardiomegaly and bilateral pleural effusions. Moderate to large ascites. No acute abdominal process is appreciated on noncontrast CT. 4 mm nonobstructing right renal stone. Signer Name: Armando Orantes Jr, MD Signed: 11/21/2018 11:19 AM Workstation Name: [id number]
[2018-11-21] MEDS: CORDARONE PO SCH (11:30)
--- NOTE | 2018-11-21 12:06 | Gastroenterology Progress Note ---
Assessment and Plan 1.GI bleed -H/H 12.3/37.5-trending up -continue to monitor H/H and transfuse as needed -Eliquis on hold -no active signs of bleeding this am per nursing -last EGD 05/16/2018 showed medium hiatal hernia, moderate gastritis with ulceration, and moderate duodenitis (bx negative) -had a colonoscopy within the last few years at [place] with negative results per pt report (records unavailable) -abd CT 09/27/18-ascites (likely cardiac in origin), cardiomegaly, and dinesh pleural effusions -bleeding scan 11/19- negative for active bleeding -etiology unclear- possibly from recent gastric ulceration vs ischemia from hypotension -patient is currently critically ill, in ICU on vent/pressor support s/p cardiac arrest overnight. -repeat abd CT this am w/o obvious signs of mesenteric ischemia -too high risk for endoscopy at present -okay to resume anticoagulation if recommended per cardiology-monitor and hold for signs of active bleeding -continue PPI and supportive care -prognosis poor- plan of care discussion with family per primary team (DNR/ho spice?) 2.Acute on Chronic systolic heart failure 3.s/p Cardiopulmonary arrest 11/15 and 11/20 4.KERWIN 5.acute on chronic respiratory failure (COPD) 6.Hx of LUE DVT 7.Hx of coronary artery disease 8.Hx of Ischemic cardiomyopathy -s/p AICD; EF 10-15% 9.A.fib Subjective Date of service: 11/21/18 Principal diagnosis: blood in stool Interval history: Patient is s/p cardiac arrest overnight and is currently in ICU on vent and pressor support in critical condition. Per nursing, patient with BMs x 2 yesterday with blood in stool (color unknown) but no active signs of bleeding this am. Objective - Constitutional Vitals: Temp Pulse Resp BP Pulse Ox 97.9 F 107 H 17 110/65 100 11/21/18 06:00 11/21/18 11:45 11/21/18 11:31 11/21/18 11:45 11/21/18 11:45 General appearance: other (in IUC on vent and pressor support, unresponsive) - Respiratory Respiratory: bilateral: diminished - Cardiovascular Rhythm: other (tachycardia) - Extremities Extremity abnormal: other (edema) - Gastrointestinal General gastrointestinal: Present: soft, distended - Labs CBC & Chem 7: 11/21/18 05:55 11/21/18 05:55 Labs: Laboratory Results - last 24 hr 11/20/18 11/20/18 11/20/18 01:15 19:25 20:06 WBC RBC Hgb 11.6 Hct 36.7 MCV MCH MCHC RDW Plt Count Add Manual Diff Total Counted Seg Neutrophils % Seg Neuts % (Manual) Band Neutrophils % Lymphocytes % (Manual) Reactive Lymphs % (Man) Monocytes % (Manual) Eosinophils % (Manual) Basophils % (Manual) Metamyelocytes % Myelocytes % Promyelocytes % Blast Cells % Nucleated RBC % Seg Neutrophils # Man Band Neutrophils # Lymphocytes # (Manual) Abs React Lymphs (Man) Monocytes # (Manual) Eosinophils # (Manual) Basophils # (Manual) Metamyelocytes # Myelocytes # Promyelocytes # Blast Cells # WBC Morphology Hypersegmented Neuts Hyposegmented Neuts Hypogranular Neuts Smudge Cells Toxic Granulation Toxic Vacuolation Dohle Bodies Pelger-Huet Anomaly Richi Rods Platelet Estimate Clumped Platelets Plt Clumps, EDTA Large Platelets Giant Platelets Platelet Satelliting Plt Morphology Comment RBC Morphology Dimorphic RBCs Polychromasia Hypochromasia Poikilocytosis Anisocytosis Microcytosis Macrocytosis Spherocytes Pappenheimer Bodies Sickle Cells Target Cells Tear Drop Cells Ovalocytes Helmet Cells Morley-Waldorf Bodies [place] Rings [place] Cells Bite Cells Crenated Cell Elliptocytes Acanthocytes (Spur) Rouleaux Hemoglobin C Crystals Schistocytes Malaria parasites Diogenes Bodies Hem Pathologist Commnt POC ABG pH POC ABG pCO2 POC ABG pO2 POC ABG HCO3 POC ABG Total CO2 POC ABG O2 Sat POC ABG Base Excess FiO2 Sodium Potassium Chloride Carbon Dioxide Anion Gap BUN Creatinine Estimated GFR BUN/Creatinine Ratio Glucose POC Glucose 106 H Lactic Acid 4.30 H* Calcium Phosphorus Magnesium Total Bilirubin AST ALT Alkaline Phosphatase Troponin T Total Protein Albumin Albumin/Globulin Ratio 11/20/18 11/20/18 11/20/18 21:33 21:50 22:11 WBC RBC Hgb Hct MCV MCH MCHC RDW Plt Count Add Manual Diff Total Counted Seg Neutrophils % Seg Neuts % (Manual) Band Neutrophils % Lymphocytes % (Manual) Reactive Lymphs % (Man) Monocytes % (Manual) Eosinophils % (Manual) Basophils % (Manual) Metamyelocytes % Myelocytes % Promyelocytes % Blast Cells % Nucleated RBC % Seg Neutrophils # Man Band Neutrophils # Lymphocytes # (Manual) Abs React Lymphs (Man) Monocytes # (Manual) Eosinophils # (Manual) Basophils # (Manual) Metamyelocytes # Myelocytes # Promyelocytes # Blast Cells # WBC Morphology Hypersegmented Neuts Hyposegmented Neuts Hypogranular Neuts Smudge Cells Toxic Granulation Toxic Vacuolation Dohle Bodies Pelger-Huet Anomaly Richi Rods Platelet Estimate Clumped Platelets Plt Clumps, EDTA Large Platelets Giant Platelets Platelet Satelliting Plt Morphology Comment RBC Morphology Dimorphic RBCs Polychromasia Hypochromasia Poikilocytosis Anisocytosis Microcytosis Macrocytosis Spherocytes Pappenheimer Bodies Sickle Cells Target Cells Tear Drop Cells Ovalocytes Helmet Cells Morley-Waldorf Bodies [place] Rings [place] Cells Bite Cells Crenated Cell Elliptocytes Acanthocytes (Spur) Rouleaux Hemoglobin C Crystals Schistocytes Malaria parasites Diogenes Bodies Hem Pathologist Commnt POC ABG pH 7.228 L POC ABG pCO2 30.5 L POC ABG pO2 160 H POC ABG HCO3 12.7 POC ABG Total CO2 14 POC ABG O2 Sat 99 POC ABG Base Excess -15 FiO2 100 Sodium Potassium Chloride Carbon Dioxide Anion Gap BUN Creatinine Estimated GFR BUN/Creatinine Ratio Glucose POC Glucose 64 L 110 H Lactic Acid Calcium Phosphorus Magnesium Total Bilirubin AST ALT Alkaline Phosphatase Troponin T Total Protein Albumin Albumin/Globulin Ratio 11/20/18 11/20/18 11/20/18 22:20 22:20 Unknown WBC RBC Hgb Hct MCV MCH MCHC RDW Plt Count Add Manual Diff Total Counted Seg Neutrophils % Seg Neuts % (Manual) Band Neutrophils % Lymphocytes % (Manual) Reactive Lymphs % (Man) Monocytes % (Manual) Eosinophils % (Manual) Basophils % (Manual) Metamyelocytes % Myelocytes % Promyelocytes % Blast Cells % Nucleated RBC % Seg Neutrophils # Man Band Neutrophils # Lymphocytes # (Manual) Abs React Lymphs (Man) Monocytes # (Manual) Eosinophils # (Manual) Basophils # (Manual) Metamyelocytes # Myelocytes # Promyelocytes # Blast Cells # WBC Morphology Hypersegmented Neuts Hyposegmented Neuts Hypogranular Neuts Smudge Cells Toxic Granulation Toxic Vacuolation Dohle Bodies Pelger-Huet Anomaly Richi Rods Platelet Estimate Clumped Platelets Plt Clumps, EDTA Large Platelets Giant Platelets Platelet Satelliting Plt Morphology Comment RBC Morphology Dimorphic RBCs Polychromasia Hypochromasia Poikilocytosis Anisocytosis Microcytosis Macrocytosis Spherocytes Pappenheimer Bodies Sickle Cells Target Cells Tear Drop Cells Ovalocytes Helmet Cells Morley-Waldorf Bodies [place] Rings [place] Cells Bite Cells Crenated Cell Elliptocytes Acanthocytes (Spur) Rouleaux Hemoglobin C Crystals Schistocytes Malaria parasites Diogenes Bodies Hem Pathologist Commnt POC ABG pH POC ABG pCO2 POC ABG pO2 POC ABG HCO3 POC ABG Total CO2 POC ABG O2 Sat POC ABG Base Excess FiO2 Sodium 134 L Potassium 5.5 H D Chloride 93.4 L Carbon Dioxide 17 L D Anion Gap 29 BUN 72 H Creatinine 4.2 H Estimated GFR 13 BUN/Creatinine Ratio 17 Glucose 80 POC Glucose Lactic Acid 8.40 H* Calcium 8.0 L Phosphorus Magnesium 2.30 Total Bilirubin 0.50 AST 57 H ALT 25 Alkaline Phosphatase 53 Troponin T 3.550 H* Total Protein 4.2 L Albumin 2.3 L Albumin/Globulin Ratio 1.2 11/21/18 11/21/18 11/21/18 04:52 05:55 05:55 WBC 12.2 H RBC 3.65 Hgb 12.3 Hct 37.5 MCV 103 H MCH 34 H MCHC 33 RDW 16.9 H Plt Count 267 Add Manual Diff Complete Total Counted 100 Seg Neutrophils % Computer Programming Manager Seg Neuts % (Manual) 96.0 H Band Neutrophils % 0 Lymphocytes % (Manual) 2.0 L Reactive Lymphs % (Man) 0 Monocytes % (Manual) 2.0 Eosinophils % (Manual) 0 Basophils % (Manual) 0 Metamyelocytes % 0 Myelocytes % 0 Promyelocytes % 0 Blast Cells % 0 Nucleated RBC % Not Reportable Seg Neutrophils # Man 11.7 H Band Neutrophils # 0.0 Lymphocytes # (Manual) 0.2 L Abs React Lymphs (Man) 0.0 Monocytes # (Manual) 0.2 Eosinophils # (Manual) 0.0 Basophils # (Manual) 0.0 Metamyelocytes # 0.0 Myelocytes # 0.0 Promyelocytes # 0.0 Blast Cells # 0.0 WBC Morphology Not Reportable Hypersegmented Neuts Not Reportable Hyposegmented Neuts Not Reportable Hypogranular Neuts Not Reportable Smudge Cells Not Reportable Toxic Granulation Not Reportable Toxic Vacuolation Not Reportable Dohle Bodies Not Reportable Pelger-Huet Anomaly Not Reportable Richi Rods Not Reportable Platelet Estimate Consistent w auto Clumped Platelets Not Reportable Plt Clumps, EDTA Not Reportable Large Platelets Not Reportable Giant Platelets Not Reportable Platelet Satelliting Not Reportable Plt Morphology Comment Not Reportable RBC Morphology Not Reportable Dimorphic RBCs Not Reportable Polychromasia Not Reportable Hypochromasia Not Reportable Poikilocytosis 1+ Anisocytosis 1+ Microcytosis Not Reportable Macrocytosis Not Reportable Spherocytes Not Reportable Pappenheimer Bodies Not Reportable Sickle Cells Not Reportable Target Cells Not Reportable Tear Drop Cells Not Reportable Ovalocytes Few Helmet Cells Not Reportable Morley-Waldorf Bodies Not Reportable [place] Rings Not Reportable [place] Cells Not Reportable Bite Cells Not Reportable Crenated Cell Not Reportable Elliptocytes Few Acanthocytes (Spur) Not Reportable Rouleaux Not Reportable Hemoglobin C Crystals Not Reportable Schistocytes Not Reportable Malaria parasites Not Reportable Diogenes Bodies Not Reportable Hem Pathologist Commnt No POC ABG pH 7.643 H POC ABG pCO2 POC ABG pO2 161 H POC ABG HCO3 24.3 POC ABG Total CO2 25 POC ABG O2 Sat 100 POC ABG Base Excess 3 FiO2 55 Sodium 136 L Potassium 4.0 D Chloride 94.2 L Carbon Dioxide 25 D Anion Gap 21 BUN 76 H Creatinine 4.3 H Estimated GFR 12 BUN/Creatinine Ratio 18 Glucose 134 H POC Glucose Lactic Acid Calcium 7.9 L Phosphorus 5.90 H Magnesium Total Bilirubin AST ALT Alkaline Phosphatase Troponin T Total Protein Albumin Albumin/Globulin Ratio 11/21/18 11/21/18 11/21/18 05:55 06:00 06:14 WBC RBC Hgb Hct MCV MCH MCHC RDW Plt Count Add Manual Diff Total Counted Seg Neutrophils % Seg Neuts % (Manual) Band Neutrophils % Lymphocytes % (Manual) Reactive Lymphs % (Man) Monocytes % (Manual) Eosinophils % (Manual) Basophils % (Manual) Metamyelocytes % Myelocytes % Promyelocytes % Blast Cells % Nucleated RBC % Seg Neutrophils # Man Band Neutrophils # Lymphocytes # (Manual) Abs React Lymphs (Man) Monocytes # (Manual) Eosinophils # (Manual) Basophils # (Manual) Metamyelocytes # Myelocytes # Promyelocytes # Blast Cells # WBC Morphology Hypersegmented Neuts Hyposegmented Neuts Hypogranular Neuts Smudge Cells Toxic Granulation Toxic Vacuolation Dohle Bodies Pelger-Huet Anomaly Richi Rods Platelet Estimate Clumped Platelets Plt Clumps, EDTA Large Platelets Giant Platelets Platelet Satelliting Plt Morphology Comment RBC Morphology Dimorphic RBCs Polychromasia Hypochromasia Poikilocytosis Anisocytosis Microcytosis Macrocytosis Spherocytes Pappenheimer Bodies Sickle Cells Target Cells Tear Drop Cells Ovalocytes Helmet Cells Morley-Waldorf Bodies [place] Rings [place] Cells Bite Cells Crenated Cell Elliptocytes Acanthocytes (Spur) Rouleaux Hemoglobin C Crystals Schistocytes Malaria parasites Diogenes Bodies Hem Pathologist Commnt POC ABG pH POC ABG pCO2 POC ABG pO2 POC ABG HCO3 POC ABG Total CO2 POC ABG O2 Sat POC ABG Base Excess FiO2 Sodium Potassium Chloride Carbon Dioxide Anion Gap BUN Creatinine Estimated GFR BUN/Creatinine Ratio Glucose POC Glucose 154 H Lactic Acid 2.70 H* 2.50 H* Calcium Phosphorus Magnesium Total Bilirubin AST ALT Alkaline Phosphatase Troponin T Total Protein Albumin Albumin/Globulin Ratio 11/21/18 07:53 WBC RBC Hgb Hct MCV MCH MCHC RDW Plt Count Add Manual Diff Total Counted Seg Neutrophils % Seg Neuts % (Manual) Band Neutrophils % Lymphocytes % (Manual) Reactive Lymphs % (Man) Monocytes % (Manual) Eosinophils % (Manual) Basophils % (Manual) Metamyelocytes % Myelocytes % Promyelocytes % Blast Cells % Nucleated RBC % Seg Neutrophils # Man Band Neutrophils # Lymphocytes # (Manual) Abs React Lymphs (Man) Monocytes # (Manual) Eosinophils # (Manual) Basophils # (Manual) Metamyelocytes # Myelocytes # Promyelocytes # Blast Cells # WBC Morphology Hypersegmented Neuts Hyposegmented Neuts Hypogranular Neuts Smudge Cells Toxic Granulation Toxic Vacuolation Dohle Bodies Pelger-Huet Anomaly Richi Rods Platelet Estimate Clumped Platelets Plt Clumps, EDTA Large Platelets Giant Platelets Platelet Satelliting Plt Morphology Comment RBC Morphology Dimorphic RBCs Polychromasia Hypochromasia Poikilocytosis Anisocytosis Microcytosis Macrocytosis Spherocytes Pappenheimer Bodies Sickle Cells Target Cells Tear Drop Cells Ovalocytes Helmet Cells Morley-Waldorf Bodies [place] Rings [place] Cells Bite Cells Crenated Cell Elliptocytes Acanthocytes (Spur) Rouleaux Hemoglobin C Crystals Schistocytes Malaria parasites Diogenes Bodies Hem Pathologist Commnt POC ABG pH 7.516 H POC ABG pCO2 30.4 L POC ABG pO2 118 H POC ABG HCO3 24.6 POC ABG Total CO2 26 POC ABG O2 Sat 99 POC ABG Base Excess 2 FiO2 40 Sodium Potassium Chloride Carbon Dioxide Anion Gap BUN Creatinine Estimated GFR BUN/Creatinine Ratio Glucose POC Glucose Lactic Acid Calcium Phosphorus Magnesium Total Bilirubin AST ALT Alkaline Phosphatase Troponin T Total Protein Albumin Albumin/Globulin Ratio
--- NOTE | 2018-11-21 12:15 | Vascular Lab Report ---
VL AORTA/IVC/ILIAC DUPLEX LIMITED HISTORY: GI bleeding. Mesenteric artery evaluation. COMPARISON: None. TECHNIQUE: Multiple real-time ultrasonographic grayscale, color and pulse color images were obtained of the hepatic mesenteric arteries. FINDINGS: Technically difficult exam and somewhat limited images secondary to patient body habitus and ascites. Correlation is made with CT abdomen and pelvis with contrast performed the same day which demonstrate s moderate to severe diffuse arterial calcifications throughout the aorta and mesenteric arteries. Abdominal aorta: The proximal aorta measures 2.26 cm in diameter and demonstrates a peak systolic radha ocity of 48 cm/s. The mid aorta measures 1.8 cm in diameter. The distal aorta is obscured. Celiac artery: Patent. Peak systolic velocity measures 131.8 cm/s. End-diastolic velocity measures 20 .9 cm/s. Resistive index measures 0.84. S/D ratio measures 6.31. Superior mesenteric artery: Patent. Peak systolic velocity and end-diastolic velocity in the proximal , mid and distal SMA measure 107 cm/s/13 cm/s, 215 cm/s/27 cm/s, and 146 cm/s/13 cm/s respectively. The resistive indices measure 0.88, 0.87 and 0.91 respectively. The hepatic artery, splenic artery and inferior mesenteric artery could not be evaluated due to the l imitations noted above. IMPRESSION: Diffuse atherosclerotic disease with velocity measurements as described above. Signer Name: Armando Orantes Jr, MD Signed: 11/21/2018 12:11 PM Workstation Name: [id number]
--- NOTE | 2018-11-21 12:32 | Progress Note ---
Assessment and Plan Acute renal failure likely ischemic due to cardiac arrest Hypoxic respiratory failure on mechanical ventilation Acute on Chronic systolic heart failure with EF of 10-15 % Paroxysmal atrial fibrillation - Renal function reviewed. Serum creatinine 4.3 today, yesterday's level was 4.2, UOP 100 ml in crocker - 24 hour urine collection-pending to be collected - CXR today-The right lung is now nearly clear - No proteinruia, renal US negative for obstruction - Renally dose medications - Strict I&O monitoring - Obtain daily weights - Continue to monitor renal function - May need HD if no improvement in renal function Subjective Date of service: 11/21/18 Principal diagnosis: blood in stool Interval history: Patient seen lying in bed. Intubated. No family at bedside. Objective - Vital Signs Vital signs: Vital Signs - 12hr 11/21/18 11/21/18 11/21/18 00:41 00:51 01:01 Temperature Pulse Rate 67 64 62 Pulse Rate [ From Monitor] Respiratory 26 H 26 H 26 H Rate Blood Pressure 152/44 90/20 127/55 O2 Sat by Pulse 100 100 100 Oximetry 11/21/18 11/21/18 11/21/18 01:11 01:21 01:30 Temperature Pulse Rate 67 62 67 Pulse Rate [ From Monitor] Respiratory 26 H 26 H 26 H Rate Blood Pressure 90/20 125/53 137/39 O2 Sat by Pulse 100 100 Oximetry 11/21/18 11/21/18 11/21/18 01:41 01:51 02:01 Temperature Pulse Rate 67 65 65 Pulse Rate [ From Monitor] Respiratory 26 H 26 H 26 H Rate Blood Pressure 125/53 135/40 133/53 O2 Sat by Pulse Oximetry 11/21/18 11/21/18 11/21/18 02:11 02:21 02:31 Temperature Pulse Rate 64 66 87 Pulse Rate [ From Monitor] Respiratory 26 H 22 16 Rate Blood Pressure 137/39 133/58 118/64 O2 Sat by Pulse Oximetry 11/21/18 11/21/18 11/21/18 02:41 02:51 03:01 Temperature Pulse Rate 67 64 85 Pulse Rate [ From Monitor] Respiratory 26 H 26 H 26 H Rate Blood Pressure 133/58 135/65 121/51 O2 Sat by Pulse Oximetry 11/21/18 11/21/18 11/21/18 03:11 03:21 03:31 Temperature Pulse Rate 67 70 84 Pulse Rate [ From Monitor] Respiratory 26 H 26 H 19 Rate Blood Pressure 118/64 142/47 138/105 O2 Sat by Pulse Oximetry 11/21/18 11/21/18 11/21/18 03:41 03:51 04:00 Temperature Pulse Rate 63 71 66 Pulse Rate [ From Monitor] Respiratory 16 18 15 Rate Blood Pressure 142/47 122/58 128/49 O2 Sat by Pulse Oximetry 11/21/18 11/21/18 11/21/18 04:11 04:21 04:30 Temperature Pulse Rate 67 69 76 Pulse Rate [ From Monitor] Respiratory 26 H 26 H 23 Rate Blood Pressure 128/49 125/57 117/61 O2 Sat by Pulse Oximetry 11/21/18 11/21/18 11/21/18 04:41 04:44 04:51 Temperature Pulse Rate 68 66 75 Pulse Rate [ From Monitor] Respiratory 26 H 13 Rate Blood Pressure 125/57 128/49 107/77 O2 Sat by Pulse 98 Oximetry 11/21/18 11/21/18 11/21/18 05:01 05:11 05:21 Temperature Pulse Rate 72 76 73 Pulse Rate [ From Monitor] Respiratory 16 21 19 Rate Blood Pressure 117/41 117/41 132/79 O2 Sat by Pulse Oximetry 11/21/18 11/21/18 11/21/18 05:31 05:41 05:51 Temperature Pulse Rate 72 68 74 Pulse Rate [ From Monitor] Respiratory 18 18 18 Rate Blood Pressure 135/70 135/70 138/50 O2 Sat by Pulse Oximetry 11/21/18 11/21/18 11/21/18 06:00 06:11 06:21 Temperature 97.9 F Pulse Rate 72 78 82 Pulse Rate [ From Monitor] Respiratory 17 19 13 Rate Blood Pressure 127/56 127/56 134/47 O2 Sat by Pulse Oximetry 11/21/18 11/21/18 11/21/18 06:31 06:41 06:51 Temperature Pulse Rate 73 76 72 Pulse Rate [ From Monitor] Respiratory 22 17 20 Rate Blood Pressure 129/46 129/46 115/47 O2 Sat by Pulse Oximetry 11/21/18 11/21/18 11/21/18 07:01 07:11 07:21 Temperature Pulse Rate 85 65 101 H Pulse Rate [ From Monitor] Respiratory 14 17 17 Rate Blood Pressure 113/76 113/76 123/59 O2 Sat by Pulse Oximetry 11/21/18 11/21/18 11/21/18 07:31 07:41 07:47 Temperature Pulse Rate 74 83 72 Pulse Rate [ From Monitor] Respiratory 18 18 Rate Blood Pressure 132/66 132/66 132/66 O2 Sat by Pulse 100 100 Oximetry 11/21/18 11/21/18 11/21/18 07:50 08:00 08:11 Temperature Pulse Rate 89 82 77 Pulse Rate [ From Monitor] Respiratory 18 18 18 Rate Blood Pressure 130/52 117/54 117/54 O2 Sat by Pulse 100 99 99 Oximetry 11/21/18 11/21/18 11/21/18 08:20 08:30 08:41 Temperature Pulse Rate 80 85 82 Pulse Rate [ From Monitor] Respiratory 20 18 17 Rate Blood Pressure 134/47 119/65 119/65 O2 Sat by Pulse 99 100 99 Oximetry 11/21/18 11/21/18 11/21/18 08:51 09:00 09:05 Temperature Pulse Rate 78 94 H 85 Pulse Rate [ 95 H From Monitor] Respiratory 18 19 18 Rate Blood Pressure 116/63 103/65 O2 Sat by Pulse 100 100 100 Oximetry 11/21/18 11/21/18 11/21/18 09:11 09:20 09:30 Temperature Pulse Rate 83 76 84 Pulse Rate [ From Monitor] Respiratory 18 19 17 Rate Blood Pressure 103/65 109/71 117/65 O2 Sat by Pulse 100 100 100 Oximetry 11/21/18 11/21/18 11/21/18 09:41 09:51 10:00 Temperature Pulse Rate 101 H 85 91 H Pulse Rate [ From Monitor] Respiratory 18 18 18 Rate Blood Pressure 117/65 109/71 113/62 O2 Sat by Pulse 100 100 100 Oximetry 11/21/18 11/21/18 11/21/18 10:50 11:01 11:11 Temperature Pulse Rate 84 81 Pulse Rate [ From Monitor] Respiratory 18 17 Rate Blood Pressure 113/62 114/64 113/62 O2 Sat by Pulse 100 Oximetry 11/21/18 11/21/18 11/21/18 11:21 11:31 11:45 Temperature Pulse Rate 95 H 84 107 H Pulse Rate [ From Monitor] Respiratory 18 17 Rate Blood Pressure 112/61 112/61 110/65 O2 Sat by Pulse 100 100 100 Oximetry - General Appearance General appearance: sedated on ventilator, intubated EENT: ATNC, PERRL Neck: no JVD, supple Respiratory: Present: Decreased Breath Sounds, Other (Intubated) Cardiology: S1S2 Gastrointestinal: normoactive bowel sounds Integumentary: warm and dry Neurologic: other (Sedated) Musculoskeletal: joint swelling - Lab 11/21/18 05:55 11/21/18 05:55 Most recent lab results Calcium 7.9 mg/dL (8.4-10.2) L 11/21/18 05:55 Phosphorus 5.90 mg/dL (2.5-4.5) H 11/21/18 05:55 Magnesium 2.30 mg/dL (1.7-2.3) 11/20/18 22:20 102.6 mg/dL (0.1-20.0) H 11/16/18 09:26 103.3 mg/dL (0.1-20.0) H 11/16/18 09:26 28 mg/dL (5-11.8) H 11/16/18 09:26 Medications & Allergies - Medications Allergies/Adverse Reactions: Allergies lisinopril Allergy (Verified 02/24/18 09:15) Anaphylaxis Penicillins Allergy (Verified 02/24/18 09:15) Seizure Sulfa (Sulfonamide Antibiotics) Adverse Reaction (Verified 02/24/18 09:15) Hives Home Medications: Home Medications Medication Instructions Recorded Confirmed Last Taken Type Aspirin [Adult Aspirin] 81 mg PO DAILY 02/24/18 11/08/18 05/09/18 History Spironolactone [Aldactone] 25 mg PO QDAY 02/24/18 11/08/18 05/09/18 History buPROPion SR [Wellbutrin SR] 150 mg PO BID 02/24/18 11/08/18 05/09/18 History Albuterol Sulfate [Ventolin HFA] 1 puff IH Q6H PRN 30 Days 03/03/18 11/08/18 05/09/18 Rx [email or web address] Cyclobenzaprine [Flexeril 10 MG 10 mg PO TID PRN 05/10/18 11/08/18 05/09/18 History TAB] Diphenhydramine HCl [Allergy 25 mg PO DAILY 05/10/18 11/08/18 05/09/18 History Relief] ISOSORBIDE MONOnitrate [Imdur ER] 60 mg PO QDAY 05/10/18 11/08/18 05/09/18 History Sertraline HCl [Zoloft] 50 mg PO DAILY 05/10/18 11/08/18 05/09/18 History hydrALAZINE [Apresoline TAB] 25 mg PO Q8HR 05/10/18 11/08/18 05/09/18 History Apixaban [Eliquis] 5 mg PO Q12HR #60 tablet 07/02/18 11/08/18 Unknown Rx Pantoprazole [Protonix TAB] 40 mg PO QDAY #30 tablet 07/02/18 11/08/18 Unknown Rx Polyethylene Glycol 3350 [Miralax 17 gm PO BID PRN #30 powd.pack 07/02/18 11/08/18 Unknown Rx 3350] Carvedilol [Coreg] 3.125 mg PO BID #60 tablet 09/10/18 11/08/18 Unknown Rx Magnesium Oxide [Mag-Ox] 400 mg PO QDAY #7 tablet 10/04/18 11/08/18 Unknown Rx Potassium Chloride [K-Dur] 20 meq PO QDAY #7 tablet 10/04/18 11/08/18 Unknown Rx Torsemide [Demadex] 40 mg PO BID #60 tablet 10/04/18 11/08/18 Unknown Rx metOLazone [Zaroxolyn] 5 mg PO QDAY #30 tablet 10/04/18 11/08/18 Unknown Rx Active Medications: Generic Name Dose Route Start Last Admin Trade Name Freq PRN Reason Stop Dose Admin Albuterol 2.5 mg 11/09/18 08:00 11/20/18 22:07 Proventil IH 2.5 mg Q4HRT PRN Administration Shortness Of Breath Amiodarone HCl 200 mg 11/10/18 22:00 11/20/18 22:48 Cordarone PO Not Given BID RADHA Aspirin 81 mg 11/09/18 10:00 11/20/18 09:42 Halfprin Ec PO 81 mg DAILY RADHA Administration Atorvastatin Calcium 40 mg 11/11/18 22:00 11/20/18 22:49 Lipitor PO Not Given QHS RADHA Bupropion HCl 150 mg 11/21/18 10:00 Wellbutrin PO BID RADHA Dextrose 50 ml 11/20/18 21:45 D50w (25gm) Syringe IV PRN PRN Hypoglycemia Hydromorphone HCl 0.5 mg 11/19/18 11:21 Dilaudid IV Q3H PRN Pain , Severe (7-10) Hydrophilic Ointment 1 applic 11/20/18 20:27 Vaseline Lip Therapy TP Q2HR PRN Dry Lips Norepinephrine 4 mg in 250 mls @ 7.5 mls/hr 11/20/18 21:00 11/21/18 08:58 Levophed Drip 4 Mg/Ns 250 Ml IV 12 mcg/min TITR RADHA 45 mls/hr Administration Protocol 2 MCG/MIN Propofol 1,000 mg in 100 mls @ 3.648 mls/hr 11/20/18 21:00 11/21/18 07:50 Diprivan 10 Mg/Ml IV 5 mcg/kg/min TITR RADHA 3.648 mls/hr Titration Protocol 5 MCG/KG/MIN Dobutamine HCl/Dextrose 500 mg in 250 mls @ 9.12 mls/hr 11/21/18 11:00 Dobutrex Drip 500mg/D5w 250ml IV DIRECT RADHA Protocol 2.5 MCG/KG/MIN Metoprolol Tartrate 2.5 mg 11/21/18 09:18 Lopressor IV Q6HR PRN Tachyarrhythmias Midazolam HCl 2 mg 11/20/18 20:27 11/21/18 04:08 Versed IV 2 mg Q10MIN PRN Administration Sedation Multi-Ingred Cream/Lotion/Oil/Oint 1 applic 11/20/18 20:27 Artificial Tears Ophth Oint OU Q4HR PRN Dry Eye(s) Ondansetron HCl 4 mg 11/11/18 13:44 11/18/18 17:51 Zofran IV 4 mg Q8H PRN Administration Nausea And Vomiting Pantoprazole Sodium 40 mg 11/21/18 10:00 Protonix IV QDAY RADHA Polyethylene Glycol 17 gm 11/09/18 10:00 Miralax 3350 PO BID PRN Constipation Sertraline HCl 50 mg 11/09/18 10:00 11/20/18 09:41 Zoloft PO 50 mg DAILY RADHA Administration Simethicone 80 mg 11/12/18 11:49 11/15/18 04:05 Mylicon PO 80 mg Q6H PRN Administration Gas pain Sucralfate 1 gm 11/12/18 16:30 11/20/18 22:48 Carafate PO Not Given ACHS RADHA
--- NOTE | 2018-11-21 12:33 | Progress Note ---
Assessment and Plan Assessment and plan: Patient is a 68 year old -[place] female who was initially admitted for acute on chronic systolic heart failure. She was managed with IV milrinone drip and IV bumex by cardiology. The drip was discontinued on 11/13 while the IV Bumex was changed to oral on 11/14. Early this morning, she coded and was successfully resuscitated and transferred to the ICU S/p cardiac arrest x2 -Successfully resuscitated -patient arrested again on 11/20 Acute on chronic respiratory failure with hypoxia on MV > 96 hours extubated on 11/16, care per pulmonology reintubated on 11/20 after second cardiac arrest, cont MV, mgt per pulmonology cardiogenic Shock on pressors, on dobutamine drip, Acute on Chronic systolic heart failure with EF of 10-15 % mgt per cardiology, on dobutamine drip, and diuretics as tolerated ACUTE GI BLEED Most likely due to ischemic colitis from cardiac arrest, patient is too unstable for any intervention at this time, hemoglobin stable Paroxysmal atrial fibrillation -Rate currently controlled, meds per cardiology -eliquis now on hold given gi bleed Hx of LUE DVT -eliquis on hold due to gi bleed Hx of coronary artery disease -cardiac cath 03/2018 revealed patent SVG to LAD, patent SVG to OM, patent SVG to PDA and patent diagonal stent, LVEF 10-15%. -Continue medical management KERWIN, likely vasomotor nephropathy, ATN and/diuretic use Management as per nephrology COPD, chronic and stable Tobacco abuse -Patient counseled on cessation > 11 minutes Morbid obesity with BMI of 42.9 -Lifestyle modification recommended -preventative health counseling >17 minutes Prognosis is very poor. Cardiac arrest 2 and multiorgan failure, we'll plan to schedule a family meeting for early next week if patient does not improve Critical care time 35 minutes History Interval history: The patient is intubated and sedated, requiring pressors and dobutamine drip, patient also still having bloody bowel movement Hospitalist Physical - Physical exam Narrative exam: General.: Intubated and sedated . appears chronically ill HEENT: Moist mucous membranes, extraocular muscles intact, no lymphadenopathy Neck: supple Cardiac: S1-S2 heard Lungs: Bibasilar Rales Abdomen: soft , nontender, nondistended, bowel sounds positive Extremities: no edema clubbing or cyanosis Skin: no rash or lesions Neurologic: no gross focal deficits Psych: calm, and cooperative - Constitutional Vitals: Temp Pulse Resp BP Pulse Ox 97.9 F 107 H 17 110/65 100 11/21/18 06:00 11/21/18 11:45 11/21/18 11:31 11/21/18 11:45 11/21/18 11:45 General appearance: Present: other (intubated) Results - Labs CBC & Chem 7: 11/22/18 05:35 11/23/18 04:22 Labs: Laboratory Last Values WBC 12.2 K/mm3 (4.5-11.0) H 11/21/18 05:55 RBC 3.65 M/mm3 (3.65-5.03) 11/21/18 05:55 Hgb 12.3 gm/dl (10.1-14.3) 11/21/18 05:55 Hct 37.5 % (30.3-42.9) 11/21/18 05:55 MCV 103 fl (79-97) H 11/21/18 05:55 MCH 34 pg (28-32) H 11/21/18 05:55 MCHC 33 % (30-34) 11/21/18 05:55 RDW 16.9 % (13.2-15.2) H 11/21/18 05:55 Plt Count 267 K/mm3 (140-440) 11/21/18 05:55 Lymph % (Auto) 4.0 % (13.4-35.0) L 11/19/18 06:48 [place] % (Auto) 6.1 % (0.0-7.3) 11/19/18 06:48 Eos % (Auto) 0.0 % (0.0-4.3) 11/19/18 06:48 Baso % (Auto) 0.6 % (0.0-1.8) 11/19/18 06:48 Lymph # 0.3 K/mm3 (1.2-5.4) L 11/19/18 06:48 [place] # 0.5 K/mm3 (0.0-0.8) 11/19/18 06:48 Eos # 0.0 K/mm3 (0.0-0.4) 11/19/18 06:48 Baso # 0.0 K/mm3 (0.0-0.1) 11/19/18 06:48 Add Manual Diff Complete 11/21/18 05:55 Total Counted 100 11/21/18 05:55 Seg Neutrophils % Facility Coordinator 11/21/18 05:55 Seg Neuts % (Manual) 96.0 % (40.0-70.0) H 11/21/18 05:55 0 % 11/21/18 05:55 2.0 % (13.4-35.0) L 11/21/18 05:55 Reactive Lymphs % (Man) 0 % 11/21/18 05:55 2.0 % (0.0-7.3) 11/21/18 05:55 0 % (0.0-4.3) 11/21/18 05:55 0 % (0.0-1.8) 11/21/18 05:55 0 % 11/21/18 05:55 0 % 11/21/18 05:55 0 % 11/21/18 05:55 0 % 11/21/18 05:55 Nucleated RBC % Not Reportable 11/21/18 05:55 Seg Neutrophils # 7.4 K/mm3 (1.8-7.7) 11/19/18 06:48 Seg Neutrophils # Man 11.7 K/mm3 (1.8-7.7) H 11/21/18 05:55 Band Neutrophils # 0.0 K/mm3 11/21/18 05:55 0.2 K/mm3 (1.2-5.4) L 11/21/18 05:55 Abs React Lymphs (Man) 0.0 K/mm3 11/21/18 05:55 0.2 K/mm3 (0.0-0.8) 11/21/18 05:55 0.0 K/mm3 (0.0-0.4) 11/21/18 05:55 0.0 K/mm3 (0.0-0.1) 11/21/18 05:55 0.0 K/mm3 11/21/18 05:55 0.0 K/mm3 11/21/18 05:55 0.0 K/mm3 11/21/18 05:55 Blast Cells # 0.0 K/mm3 11/21/18 05:55 WBC Morphology Not Reportable 11/21/18 05:55 Hypersegmented Neuts Not Reportable 11/21/18 05:55 Hyposegmented Neuts Not Reportable 11/21/18 05:55 Hypogranular Neuts Not Reportable 11/21/18 05:55 Not Reportable 11/21/18 05:55 Not Reportable 11/21/18 05:55 Not Reportable 11/21/18 05:55 Not Reportable 11/21/18 05:55 Not Reportable 11/21/18 05:55 Not Reportable 11/21/18 05:55 Consistent w auto 11/21/18 05:55 Not Reportable 11/21/18 05:55 Plt Clumps, EDTA Not Reportable 11/21/18 05:55 Not Reportable 11/21/18 05:55 Not Reportable 11/21/18 05:55 Not Reportable 11/21/18 05:55 Plt Morphology Comment Not Reportable 11/21/18 05:55 RBC Morphology Not Reportable 11/21/18 05:55 Dimorphic RBCs Not Reportable 11/21/18 05:55 Not Reportable 11/21/18 05:55 Not Reportable 11/21/18 05:55 1+ 11/21/18 05:55 1+ 11/21/18 05:55 Not Reportable 11/21/18 05:55 Not Reportable 11/21/18 05:55 Not Reportable 11/21/18 05:55 Not Reportable 11/21/18 05:55 Not Reportable 11/21/18 05:55 Not Reportable 11/21/18 05:55 Not Reportable 11/21/18 05:55 Few 11/21/18 05:55 Not Reportable 11/21/18 05:55 Not Reportable 11/21/18 05:55 Not Reportable 11/21/18 05:55 Not Reportable 11/21/18 05:55 Not Reportable 11/21/18 05:55 Not Reportable 11/21/18 05:55 Few 11/21/18 05:55 Acanthocytes (Spur) Not Reportable 11/21/18 05:55 Rouleaux Not Reportable 11/21/18 05:55 Not Reportable 11/21/18 05:55 Not Reportable 11/21/18 05:55 Not Reportable 11/21/18 05:55 Not Reportable 11/21/18 05:55 Hem Pathologist Commnt No 11/21/18 05:55 PT 23.2 Sec. (12.2-14.9) H 11/19/18 Unknown INR 2.11 (0.87-1.13) H 11/19/18 Unknown APTT 28.5 Sec. (24.2-36.6) 11/15/18 18:41 POC ABG pH 7.516 (7.35-7.45) H 11/21/18 07:53 POC ABG pCO2 30.4 (35-45) L 11/21/18 07:53 POC ABG pO2 118 (80-105) H 11/21/18 07:53 POC ABG HCO3 24.6 (22-26 mml/L) 11/21/18 07:53 POC ABG Total CO2 26 (23-27mmol/L) 11/21/18 07:53 POC ABG O2 Sat 99 11/21/18 07:53 POC ABG Base Excess 2 ((-2) - (+3)mmol/L) 11/21/18 07:53 40 % 11/21/18 07:53 Sodium 136 mmol/L (137-145) L 11/21/18 05:55 Potassium 4.0 mmol/L (3.6-5.0) D 11/21/18 05:55 Chloride 94.2 mmol/L (98-107) L 11/21/18 05:55 Carbon Dioxide 25 mmol/L (22-30) D 11/21/18 05:55 21 mmol/L 11/21/18 05:55 BUN 76 mg/dL (7-17) H 11/21/18 05:55 4.3 mg/dL (0.7-1.2) H 11/21/18 05:55 Estimated GFR 12 ml/min 11/21/18 05:55 18 % 11/21/18 05:55 Glucose 134 mg/dL (65-100) H 11/21/18 05:55 POC Glucose 154 (70-105) H 11/21/18 06:14 Lactic Acid 2.50 mmol/L (0.7-2.0) H* 11/21/18 06:00 Calcium 7.9 mg/dL (8.4-10.2) L 11/21/18 05:55 Phosphorus 5.90 mg/dL (2.5-4.5) H 11/21/18 05:55 Magnesium 2.30 mg/dL (1.7-2.3) 11/20/18 22:20 0.50 mg/dL (0.1-1.2) 11/20/18 Unknown AST 57 units/L (5-40) H 11/20/18 Unknown ALT 25 units/L (7-56) 11/20/18 Unknown 53 units/L (35-129) 11/20/18 Unknown 293 units/L (30-135) H 11/15/18 18:41 CK-MB (CK-2) 5.6 ng/mL (0.0-4.0) H 11/15/18 18:41 CK-MB (CK-2) Rel Index 1.9 (0-4) 11/15/18 18:41 3.550 ng/mL (0.00-0.029) H* 11/20/18 22:20 4.2 g/dL (6.3-8.2) L 11/20/18 Unknown 2.3 g/dL (3.9-5) L 11/20/18 Unknown 1.2 % 11/20/18 Unknown Triglycerides 107 mg/dL (2-149) 11/08/18 03:09 Cholesterol 176 mg/dL (50-199) 11/08/18 03:09 137 mg/dL (50-130) H 11/08/18 03:09 33 mg/dL (40-59) L 11/08/18 03:09 5.33 % 11/08/18 03:09 11 units/L (13-60) L 11/13/18 05:38 Yellow (Yellow) 11/16/18 09:26 Slightly-cloudy (Clear) 11/16/18 09:26 7.0 (5.0-7.0) 11/16/18 09:26 Ur Specific [place] 1.014 (1.003-1.030) 11/16/18 09:26 <15 mg/dl mg/dL (Negative) 11/16/18 09:26 Neg mg/dL (Negative) 11/16/18 09:26 Tr mg/dL (Negative) 11/16/18 09:26 Neg (Negative) 11/16/18 09:26 Neg (Negative) 11/16/18 09:26 Neg (Negative) 11/16/18 09:26 < 2.0 mg/dL (<2.0) 11/16/18 09:26 Ur Leukocyte Esterase Neg (Negative) 11/16/18 09:26 2.0 /HPF (0.0-6.0) 11/16/18 09:26 1.0 /HPF (0.0-6.0) 11/16/18 09:26 U Epithel Cells (Auto) < 1.0 /HPF (0-13.0) 11/16/18 09:26 2+ /HPF (Negative) 11/16/18 09:26 Few /HPF 11/16/18 09:26 102.6 mg/dL (0.1-20.0) H 11/16/18 09:26 103.3 mg/dL (0.1-20.0) H 11/16/18 09:26 Protein/Creatinin Ratio 0.27 11/16/18 09:26 28 mg/dL (5-11.8) H 11/16/18 09:26 Blood Type O POSITIVE 11/19/18 Unknown Antibody Screen Negative 11/19/18 Unknown Active Medications - Current Medications Current Medications: Generic Name Dose Route Start Last Admin Trade Name Freq PRN Reason Stop Dose Admin Albuterol 2.5 mg 11/09/18 08:00 11/20/18 22:07 Proventil IH 2.5 mg Q4HRT PRN Administration Shortness Of Breath Amiodarone HCl 200 mg 11/10/18 22:00 11/20/18 22:48 Cordarone PO Not Given BID [facility] Aspirin 81 mg 11/09/18 10:00 11/20/18 09:42 Halfprin Ec PO 81 mg DAILY RADHA Administration Atorvastatin Calcium 40 mg 11/11/18 22:00 11/20/18 22:49 Lipitor PO Not Given QHS RADHA Bupropion HCl 150 mg 11/21/18 10:00 Wellbutrin PO BID [facility] Dextrose 50 ml 11/20/18 21:45 D50w (25gm) Syringe IV PRN PRN Hypoglycemia Hydromorphone HCl 0.5 mg 11/19/18 11:21 Dilaudid IV Q3H PRN Pain , Severe (7-10) Hydrophilic Ointment 1 applic 11/20/18 20:27 Vaseline Lip Therapy TP Q2HR PRN Dry Lips Norepinephrine 4 mg in 250 mls @ 7.5 mls/hr 11/20/18 21:00 11/21/18 08:58 Levophed Drip 4 Mg/Ns 250 Ml IV 12 mcg/min TITR RADHA 45 mls/hr Administration Protocol 2 MCG/MIN Propofol 1,000 mg in 100 mls @ 3.648 mls/hr 11/20/18 21:00 11/21/18 07:50 Diprivan 10 Mg/Ml IV 5 mcg/kg/min TITR RADHA 3.648 mls/hr Titration Protocol 5 MCG/KG/MIN Dobutamine HCl/Dextrose 500 mg in 250 mls @ 9.12 mls/hr 11/21/18 11:00 Dobutrex Drip 500mg/D5w 250ml IV DIRECT RADHA Protocol 2.5 MCG/KG/MIN Metoprolol Tartrate 2.5 mg 11/21/18 09:18 Lopressor IV Q6HR PRN Tachyarrhythmias Midazolam HCl 2 mg 11/20/18 20:27 11/21/18 04:08 Versed IV 2 mg Q10MIN PRN Administration Sedation Multi-Ingred Cream/Lotion/Oil/Oint 1 applic 11/20/18 20:27 Artificial Tears Ophth Oint OU Q4HR PRN Dry Eye(s) Ondansetron HCl 4 mg 11/11/18 13:44 11/18/18 17:51 Zofran IV 4 mg Q8H PRN Administration Nausea And Vomiting Pantoprazole Sodium 40 mg 11/21/18 10:00 Protonix IV QDAY RADHA Polyethylene Glycol 17 gm 11/09/18 10:00 Miralax 3350 PO BID PRN Constipation Sertraline HCl 50 mg 11/09/18 10:00 11/20/18 09:41 Zoloft PO 50 mg DAILY RADHA Administration Simethicone 80 mg 11/12/18 11:49 11/15/18 04:05 Mylicon PO 80 mg Q6H PRN Administration Gas pain Sucralfate 1 gm 11/12/18 16:30 11/20/18 22:48 Carafate PO Not Given ACHS [facility] Nutrition/Malnutrition Assess - Dietary Evaluation Nutrition/Malnutrition Findings: Nutrition Notes Start: 11/14/18 15:47 Freq: Status: Active Protocol: Document 11/20/18 15:45 RM (Rec: 11/20/18 15:51 RM [id number]) Nutrition Notes Initial or Follow up Reassessment Current Diagnosis Acute Kidney Injury,Coronary Artery Disease,Heart Failure Other Pertinent Diagnosis cardiac arrest Current Diet clear liquid Labs/Tests Reviewed Pertinent Medications Zofran Height 5 ft 7 in Weight 121.6 kg [place] Body Weight (kg) 61.36 BMI 42.0 Subjective/Other Information NPO in place earlier today. Clear liquid diet ordered later today. Pt stated that she has no appetite d/t N/V. Burn Absent Trauma Absent #1 Nutrition Diagnosis Inadequate oral intake Diagnosis Progress(for reassessment Continues documentation) Is patient on ventilator? No Is Patient Ambulatory and/or Out of Bed No REE-([facility]-confined to bed) 2133.516 Kcal/Kg value to use for calculation 14 Approximate Energy Requirements Using 1702 kcal/Kg Calculation Used for Recommendations Kcal/kg Additional Notes ABW 91.5 KGS PRO: 0.8-1.0 G/KG/ABW (73-91 g/day) FLUID: 1L-1.2 L/DAY (PER MD RECOMMENDATION) Nutrition Intervention Change Diet Order: Advance diet when medically able Add Supplement/Snack (indicate name/kcal Ensure Clear 1 daily /protein ) Provides kCal: 240 Provides Protein (gm) 8 Goal #1 Diet advancement Anticipated Discharge Needs: Unable to determine at this time Follow-Up By: 11/24/18 Additional Comments Follow for PO and ONS intakes
--- NOTE | 2018-11-21 12:35 | Progress Note ---
Assessment and Plan 68 y/o female with known systolic heart failure, admitted post cardiac arrest, intubated, awake and alert. 1. Wean Diprovan to off 2. Wean Levophed to off for MAPs 55-60 3. Once patient is awake, need to discuss code status with her as well as the possiblity of trach and PEG. Her arrest do not seem to have a recognizable prodrone and appears that she will keep having them. Having a trach and peg would at least give her a stable airway. CCT 31 minutes. Subjective Date of service: 11/21/18 Principal diagnosis: blood in stool Interval history: patient had another cardiac arrest this morning. Intubated. Currently on diprovan and levophed. Objective Vital Signs - 12hr 11/21/18 11/21/18 11/21/18 00:41 00:51 01:01 Temperature Pulse Rate 67 64 62 Pulse Rate [ From Monitor] Respiratory 26 H 26 H 26 H Rate Blood Pressure 152/44 90/20 127/55 O2 Sat by Pulse 100 100 100 Oximetry 11/21/18 11/21/18 11/21/18 01:11 01:21 01:30 Temperature Pulse Rate 67 62 67 Pulse Rate [ From Monitor] Respiratory 26 H 26 H 26 H Rate Blood Pressure 90/20 125/53 137/39 O2 Sat by Pulse 100 100 Oximetry 11/21/18 11/21/18 11/21/18 01:41 01:51 02:01 Temperature Pulse Rate 67 65 65 Pulse Rate [ From Monitor] Respiratory 26 H 26 H 26 H Rate Blood Pressure 125/53 135/40 133/53 O2 Sat by Pulse Oximetry 11/21/18 11/21/18 11/21/18 02:11 02:21 02:31 Temperature Pulse Rate 64 66 87 Pulse Rate [ From Monitor] Respiratory 26 H 22 16 Rate Blood Pressure 137/39 133/58 118/64 O2 Sat by Pulse Oximetry 11/21/18 11/21/18 11/21/18 02:41 02:51 03:01 Temperature Pulse Rate 67 64 85 Pulse Rate [ From Monitor] Respiratory 26 H 26 H 26 H Rate Blood Pressure 133/58 135/65 121/51 O2 Sat by Pulse Oximetry 11/21/18 11/21/18 11/21/18 03:11 03:21 03:31 Temperature Pulse Rate 67 70 84 Pulse Rate [ From Monitor] Respiratory 26 H 26 H 19 Rate Blood Pressure 118/64 142/47 138/105 O2 Sat by Pulse Oximetry 11/21/18 11/21/18 11/21/18 03:41 03:51 04:00 Temperature Pulse Rate 63 71 66 Pulse Rate [ From Monitor] Respiratory 16 18 15 Rate Blood Pressure 142/47 122/58 128/49 O2 Sat by Pulse Oximetry 11/21/18 11/21/18 11/21/18 04:11 04:21 04:30 Temperature Pulse Rate 67 69 76 Pulse Rate [ From Monitor] Respiratory 26 H 26 H 23 Rate Blood Pressure 128/49 125/57 117/61 O2 Sat by Pulse Oximetry 11/21/18 11/21/18 11/21/18 04:41 04:44 04:51 Temperature Pulse Rate 68 66 75 Pulse Rate [ From Monitor] Respiratory 26 H 13 Rate Blood Pressure 125/57 128/49 107/77 O2 Sat by Pulse 98 Oximetry 11/21/18 11/21/18 11/21/18 05:01 05:11 05:21 Temperature Pulse Rate 72 76 73 Pulse Rate [ From Monitor] Respiratory 16 21 19 Rate Blood Pressure 117/41 117/41 132/79 O2 Sat by Pulse Oximetry 11/21/18 11/21/18 11/21/18 05:31 05:41 05:51 Temperature Pulse Rate 72 68 74 Pulse Rate [ From Monitor] Respiratory 18 18 18 Rate Blood Pressure 135/70 135/70 138/50 O2 Sat by Pulse Oximetry 11/21/18 11/21/18 11/21/18 06:00 06:11 06:21 Temperature 97.9 F Pulse Rate 72 78 82 Pulse Rate [ From Monitor] Respiratory 17 19 13 Rate Blood Pressure 127/56 127/56 134/47 O2 Sat by Pulse Oximetry 11/21/18 11/21/18 11/21/18 06:31 06:41 06:51 Temperature Pulse Rate 73 76 72 Pulse Rate [ From Monitor] Respiratory 22 17 20 Rate Blood Pressure 129/46 129/46 115/47 O2 Sat by Pulse Oximetry 11/21/18 11/21/18 11/21/18 07:01 07:11 07:21 Temperature Pulse Rate 85 65 101 H Pulse Rate [ From Monitor] Respiratory 14 17 17 Rate Blood Pressure 113/76 113/76 123/59 O2 Sat by Pulse Oximetry 11/21/18 11/21/18 11/21/18 07:31 07:41 07:47 Temperature Pulse Rate 74 83 72 Pulse Rate [ From Monitor] Respiratory 18 18 Rate Blood Pressure 132/66 132/66 132/66 O2 Sat by Pulse 100 100 Oximetry 11/21/18 11/21/18 11/21/18 07:50 08:00 08:11 Temperature Pulse Rate 89 82 77 Pulse Rate [ From Monitor] Respiratory 18 18 18 Rate Blood Pressure 130/52 117/54 117/54 O2 Sat by Pulse 100 99 99 Oximetry 11/21/18 11/21/18 11/21/18 08:20 08:30 08:41 Temperature Pulse Rate 80 85 82 Pulse Rate [ From Monitor] Respiratory 20 18 17 Rate Blood Pressure 134/47 119/65 119/65 O2 Sat by Pulse 99 100 99 Oximetry 11/21/18 11/21/18 11/21/18 08:51 09:00 09:05 Temperature Pulse Rate 78 94 H 85 Pulse Rate [ 95 H From Monitor] Respiratory 18 19 18 Rate Blood Pressure 116/63 103/65 O2 Sat by Pulse 100 100 100 Oximetry 11/21/18 11/21/18 11/21/18 09:11 09:20 09:30 Temperature Pulse Rate 83 76 84 Pulse Rate [ From Monitor] Respiratory 18 19 17 Rate Blood Pressure 103/65 109/71 117/65 O2 Sat by Pulse 100 100 100 Oximetry 11/21/18 11/21/18 11/21/18 09:41 09:51 10:00 Temperature Pulse Rate 101 H 85 91 H Pulse Rate [ From Monitor] Respiratory 18 18 18 Rate Blood Pressure 117/65 109/71 113/62 O2 Sat by Pulse 100 100 100 Oximetry 11/21/18 11/21/18 11/21/18 10:50 11:01 11:11 Temperature Pulse Rate 84 81 Pulse Rate [ From Monitor] Respiratory 18 17 Rate Blood Pressure 113/62 114/64 113/62 O2 Sat by Pulse 100 Oximetry 11/21/18 11/21/18 11/21/18 11:21 11:31 11:45 Temperature Pulse Rate 95 H 84 107 H Pulse Rate [ From Monitor] Respiratory 18 17 Rate Blood Pressure 112/61 112/61 110/65 O2 Sat by Pulse 100 100 100 Oximetry Constitutional: no acute distress, alert, other (obese) Eyes: non-icteric ENT: oropharynx moist Neck: supple Effort: normal Ascultation: Bilateral: clear (anteriorly, decreased due to obesity) Percussion: Bilateral: not dull Cardiovascular: regular rate and rhythm (no mrg) Gastrointestinal: normoactive bowel sounds, soft, non-tender, non-distended Integumentary: normal Extremities: pink and warm, edema (2+ bilateral LE edema) Neurologic: normal mental status, non-focal exam, pupils equal and round, CN II- XII normal Psychiatric: mood appropriate, affect normal CBC and BMP: 11/21/18 05:55 11/21/18 05:55 ABG, PT/INR, D-dimer: ABG POC ABG pH 7.516 (7.35-7.45) H 11/21/18 07:53 POC ABG pCO2 30.4 (35-45) L 11/21/18 07:53 POC ABG pO2 118 (80-105) H 11/21/18 07:53 POC ABG HCO3 24.6 (22-26 mml/L) 11/21/18 07:53 POC ABG Total CO2 26 (23-27mmol/L) 11/21/18 07:53 POC ABG O2 Sat 99 11/21/18 07:53 PT/INR, D-dimer PT 23.2 Sec. (12.2-14.9) H 11/19/18 Unknown INR 2.11 (0.87-1.13) H 11/19/18 Unknown Abnormal lab findings: Abnormal Labs 11/08/18 11/08/18 11/08/18 03:09 03:09 05:50 WBC RBC 3.37 L MCV 106 H MCH 34 H RDW 17.1 H Lymph % (Auto) 4.6 L [place] % (Auto) 11.5 H Lymph # 0.2 L Seg Neutrophils % 83.0 H Seg Neuts % (Manual) Lymphocytes % (Manual) Nucleated RBC % Seg Neutrophils # Man Lymphocytes # (Manual) PT INR POC ABG pH POC ABG pCO2 POC ABG pO2 Sodium 135 L Potassium Chloride Carbon Dioxide BUN 29 H Creatinine 1.4 H Glucose POC Glucose Lactic Acid Calcium 8.1 L Phosphorus AST Total Creatine Kinase CK-MB (CK-2) Troponin T 0.042 H 0.039 H Total Protein Albumin LDL Cholesterol Direct 137 H HDL Cholesterol 33 L Lipase Urine Creatinine Urine Total Protein 11/10/18 11/10/18 11/10/18 05:47 07:32 13:08 WBC RBC MCV MCH RDW Lymph % (Auto) [place] % (Auto) Lymph # Seg Neutrophils % Seg Neuts % (Manual) Lymphocytes % (Manual) Nucleated RBC % Seg Neutrophils # Man Lymphocytes # (Manual) PT INR POC ABG pH POC ABG pCO2 POC ABG pO2 Sodium Potassium Chloride Carbon Dioxide 32 H BUN 25 H Creatinine Glucose 104 H POC Glucose 115 H 142 H Lactic Acid Calcium 7.9 L Phosphorus AST Total Creatine Kinase CK-MB (CK-2) Troponin T Total Protein Albumin LDL Cholesterol Direct HDL Cholesterol Lipase Urine Creatinine Urine Total Protein 11/10/18 11/10/18 11/11/18 16:55 21:21 07:51 WBC RBC MCV MCH RDW Lymph % (Auto) [place] % (Auto) Lymph # Seg Neutrophils % Seg Neuts % (Manual) Lymphocytes % (Manual) Nucleated RBC % Seg Neutrophils # Man Lymphocytes # (Manual) PT INR POC ABG pH POC ABG pCO2 POC ABG pO2 Sodium Potassium Chloride Carbon Dioxide BUN Creatinine Glucose POC Glucose 125 H 126 H 118 H Lactic Acid Calcium Phosphorus AST Total Creatine Kinase CK-MB (CK-2) Troponin T Total Protein Albumin LDL Cholesterol Direct HDL Cholesterol Lipase Urine Creatinine Urine Total Protein 11/11/18 11/11/18 11/12/18 12:25 21:32 07:46 WBC RBC MCV MCH RDW Lymph % (Auto) [place] % (Auto) Lymph # Seg Neutrophils % Seg Neuts % (Manual) Lymphocytes % (Manual) Nucleated RBC % Seg Neutrophils # Man Lymphocytes # (Manual) PT INR POC ABG pH POC ABG pCO2 POC ABG pO2 Sodium Potassium Chloride 97.7 L Carbon Dioxide BUN 28 H Creatinine Glucose POC Glucose 125 H 126 H Lactic Acid Calcium 8.0 L Phosphorus AST Total Creatine Kinase CK-MB (CK-2) Troponin T Total Protein Albumin LDL Cholesterol Direct HDL Cholesterol Lipase Urine Creatinine Urine Total Protein 11/12/18 11/12/18 11/13/18 08:57 11:35 05:38 WBC RBC MCV MCH RDW Lymph % (Auto) [place] % (Auto) Lymph # Seg Neutrophils % Seg Neuts % (Manual) Lymphocytes % (Manual) Nucleated RBC % Seg Neutrophils # Man Lymphocytes # (Manual) PT INR POC ABG pH POC ABG pCO2 POC ABG pO2 Sodium Potassium Chloride 97.3 L Carbon Dioxide 31 H BUN 33 H Creatinine 1.5 H Glucose 111 H POC Glucose 120 H 137 H Lactic Acid Calcium 7.8 L Phosphorus AST Total Creatine Kinase CK-MB (CK-2) Troponin T Total Protein Albumin LDL Cholesterol Direct HDL Cholesterol Lipase Urine Creatinine Urine Total Protein 11/13/18 11/14/18 11/15/18 05:38 06:07 06:11 WBC RBC MCV MCH RDW Lymph % (Auto) [place] % (Auto) Lymph # Seg Neutrophils % Seg Neuts % (Manual) Lymphocytes % (Manual) Nucleated RBC % Seg Neutrophils # Man Lymphocytes # (Manual) PT INR POC ABG pH POC ABG pCO2 POC ABG pO2 Sodium 135 L Potassium Chloride 96.8 L Carbon Dioxide BUN 36 H Creatinine 1.9 H Glucose 117 H POC Glucose 128 H Lactic Acid Calcium 8.2 L Phosphorus AST Total Creatine Kinase CK-MB (CK-2) Troponin T Total Protein Albumin LDL Cholesterol Direct HDL Cholesterol Lipase 11 L Urine Creatinine Urine Total Protein 11/15/18 11/15/18 11/15/18 08:50 18:41 18:41 WBC RBC 3.51 L MCV 103 H MCH 34 H RDW 17.4 H Lymph % (Auto) 3.3 L [place] % (Auto) 9.2 H Lymph # 0.2 L Seg Neutrophils % 87.2 H Seg Neuts % (Manual) Lymphocytes % (Manual) Nucleated RBC % Seg Neutrophils # Man Lymphocytes # (Manual) PT INR POC ABG pH 7.533 H POC ABG pCO2 33.9 L POC ABG pO2 237 H Sodium 136 L Potassium Chloride 95.3 L Carbon Dioxide BUN 46 H Creatinine 2.3 H Glucose POC Glucose Lactic Acid Calcium 8.3 L Phosphorus AST Total Creatine Kinase CK-MB (CK-2) Troponin T Total Protein 4.6 L Albumin 1.8 L LDL Cholesterol Direct HDL Cholesterol Lipase Urine Creatinine Urine Total Protein 11/15/18 11/15/18 11/16/18 18:41 18:41 03:53 WBC RBC MCV MCH RDW Lymph % (Auto) [place] % (Auto) Lymph # Seg Neutrophils % Seg Neuts % (Manual) Lymphocytes % (Manual) Nucleated RBC % Seg Neutrophils # Man Lymphocytes # (Manual) PT 18.6 H INR 1.59 H POC ABG pH 7.507 H POC ABG pCO2 34.9 L POC ABG pO2 133 H Sodium Potassium Chloride Carbon Dioxide BUN Creatinine Glucose POC Glucose Lactic Acid Calcium Phosphorus AST Total Creatine Kinase 293 H CK-MB (CK-2) 5.6 H Troponin T 2.830 H* Total Protein Albumin LDL Cholesterol Direct HDL Cholesterol Lipase Urine Creatinine Urine Total Protein 11/16/18 11/16/18 11/16/18 05:35 05:35 09:26 WBC RBC 3.44 L MCV 103 H MCH 34 H RDW 17.3 H Lymph % (Auto) 2.5 L [place] % (Auto) 9.3 H Lymph # 0.2 L Seg Neutrophils % 87.9 H Seg Neuts % (Manual) Lymphocytes % (Manual) Nucleated RBC % Seg Neutrophils # Man Lymphocytes # (Manual) PT INR POC ABG pH POC ABG pCO2 POC ABG pO2 Sodium 135 L Potassium Chloride 95.9 L Carbon Dioxide BUN 47 H Creatinine 2.2 H Glucose POC Glucose Lactic Acid Calcium 8.1 L Phosphorus 4.60 H AST Total Creatine Kinase CK-MB (CK-2) Troponin T Total Protein Albumin LDL Cholesterol Direct HDL Cholesterol Lipase Urine Creatinine 103.3 H Urine Total Protein 11/16/18 11/17/18 11/18/18 09:26 10:42 04:45 WBC RBC 3.41 L 3.50 L MCV 104 H 104 H MCH 34 H 34 H RDW 17.4 H 17.7 H Lymph % (Auto) 4.1 L 4.9 L [place] % (Auto) 9.8 H 7.6 H Lymph # 0.2 L 0.3 L Seg Neutrophils % 85.8 H 87.1 H Seg Neuts % (Manual) Lymphocytes % (Manual) Nucleated RBC % Seg Neutrophils # Man Lymphocytes # (Manual) PT INR POC ABG pH POC ABG pCO2 POC ABG pO2 Sodium Potassium Chloride Carbon Dioxide BUN Creatinine Glucose POC Glucose Lactic Acid Calcium Phosphorus AST Total Creatine Kinase CK-MB (CK-2) Troponin T Total Protein Albumin LDL Cholesterol Direct HDL Cholesterol Lipase Urine Creatinine 102.6 H Urine Total Protein 28 H 11/18/18 11/19/18 11/19/18 04:45 06:48 06:48 WBC RBC 3.63 L MCV 105 H MCH 35 H RDW 17.2 H Lymph % (Auto) 4.0 L [place] % (Auto) Lymph # 0.3 L Seg Neutrophils % 89.3 H Seg Neuts % (Manual) Lymphocytes % (Manual) Nucleated RBC % Seg Neutrophils # Man Lymphocytes # (Manual) PT INR POC ABG pH POC ABG pCO2 POC ABG pO2 Sodium 135 L Potassium 3.5 L Chloride 95.9 L 95.4 L Carbon Dioxide BUN 58 H 64 H Creatinine 2.7 H 3.3 H Glucose 137 H 102 H POC Glucose Lactic Acid Calcium 7.7 L 8.0 L Phosphorus 5.00 H 6.10 H D AST Total Creatine Kinase CK-MB (CK-2) Troponin T Total Protein Albumin LDL Cholesterol Direct HDL Cholesterol Lipase Urine Creatinine Urine Total Protein 11/19/18 11/20/18 11/20/18 Unknown 01:15 04:30 WBC RBC 3.37 L MCV 105 H MCH 34 H RDW 17.5 H Lymph % (Auto) [place] % (Auto) Lymph # Seg Neutrophils % Seg Neuts % (Manual) 93.0 H Lymphocytes % (Manual) 3.0 L Nucleated RBC % 1.0 H Seg Neutrophils # Man 8.1 H Lymphocytes # (Manual) 0.3 L PT 23.2 H INR 2.11 H POC ABG pH POC ABG pCO2 POC ABG pO2 Sodium Potassium Chloride Carbon Dioxide BUN Creatinine Glucose POC Glucose Lactic Acid 4.30 H* Calcium Phosphorus AST Total Creatine Kinase CK-MB (CK-2) Troponin T Total Protein Albumin LDL Cholesterol Direct HDL Cholesterol Lipase Urine Creatinine Urine Total Protein 11/20/18 11/20/18 11/20/18 04:30 19:25 21:33 WBC RBC MCV MCH RDW Lymph % (Auto) [place] % (Auto) Lymph # Seg Neutrophils % Seg Neuts % (Manual) Lymphocytes % (Manual) Nucleated RBC % Seg Neutrophils # Man Lymphocytes # (Manual) PT INR POC ABG pH 7.228 L POC ABG pCO2 30.5 L POC ABG pO2 160 H Sodium 136 L Potassium Chloride 95.5 L Carbon Dioxide BUN 72 H Creatinine 3.6 H Glucose POC Glucose 106 H Lactic Acid Calcium 8.1 L Phosphorus 6.60 H AST Total Creatine Kinase CK-MB (CK-2) Troponin T Total Protein Albumin LDL Cholesterol Direct HDL Cholesterol Lipase Urine Creatinine Urine Total Protein 11/20/18 11/20/18 11/20/18 21:50 22:11 22:20 WBC RBC MCV MCH RDW Lymph % (Auto) [place] % (Auto) Lymph # Seg Neutrophils % Seg Neuts % (Manual) Lymphocytes % (Manual) Nucleated RBC % Seg Neutrophils # Man Lymphocytes # (Manual) PT INR POC ABG pH POC ABG pCO2 POC ABG pO2 Sodium Potassium Chloride Carbon Dioxide BUN Creatinine Glucose POC Glucose 64 L 110 H Lactic Acid 8.40 H* Calcium Phosphorus AST Total Creatine Kinase CK-MB (CK-2) Troponin T Total Protein Albumin LDL Cholesterol Direct HDL Cholesterol Lipase Urine Creatinine Urine Total Protein 11/20/18 11/20/18 11/21/18 22:20 Unknown 04:52 WBC RBC MCV MCH RDW Lymph % (Auto) [place] % (Auto) Lymph # Seg Neutrophils % Seg Neuts % (Manual) Lymphocytes % (Manual) Nucleated RBC % Seg Neutrophils # Man Lymphocytes # (Manual) PT INR POC ABG pH 7.643 H POC ABG pCO2 POC ABG pO2 161 H Sodium 134 L Potassium 5.5 H D Chloride 93.4 L Carbon Dioxide 17 L D BUN 72 H Creatinine 4.2 H Glucose POC Glucose Lactic Acid Calcium 8.0 L Phosphorus AST 57 H Total Creatine Kinase CK-MB (CK-2) Troponin T 3.550 H* Total Protein 4.2 L Albumin 2.3 L LDL Cholesterol Direct HDL Cholesterol Lipase Urine Creatinine Urine Total Protein 11/21/18 11/21/18 11/21/18 05:55 05:55 05:55 WBC 12.2 H RBC MCV 103 H MCH 34 H RDW 16.9 H Lymph % (Auto) [place] % (Auto) Lymph # Seg Neutrophils % Seg Neuts % (Manual) 96.0 H Lymphocytes % (Manual) 2.0 L Nucleated RBC % Seg Neutrophils # Man 11.7 H Lymphocytes # (Manual) 0.2 L PT INR POC ABG pH POC ABG pCO2 POC ABG pO2 Sodium 136 L Potassium Chloride 94.2 L Carbon Dioxide BUN 76 H Creatinine 4.3 H Glucose 134 H POC Glucose Lactic Acid 2.70 H* Calcium 7.9 L Phosphorus 5.90 H AST Total Creatine Kinase CK-MB (CK-2) Troponin T Total Protein Albumin LDL Cholesterol Direct HDL Cholesterol Lipase Urine Creatinine Urine Total Protein 11/21/18 11/21/18 11/21/18 06:00 06:14 07:53 WBC RBC MCV MCH RDW Lymph % (Auto) [place] % (Auto) Lymph # Seg Neutrophils % Seg Neuts % (Manual) Lymphocytes % (Manual) Nucleated RBC % Seg Neutrophils # Man Lymphocytes # (Manual) PT INR POC ABG pH 7.516 H POC ABG pCO2 30.4 L POC ABG pO2 118 H Sodium Potassium Chloride Carbon Dioxide BUN Creatinine Glucose POC Glucose 154 H Lactic Acid 2.50 H* Calcium Phosphorus AST Total Creatine Kinase CK-MB (CK-2) Troponin T Total Protein Albumin LDL Cholesterol Direct HDL Cholesterol Lipase Urine Creatinine Urine Total Protein
[2018-11-21] MEDS: DOBUTREX DRIP 500MG/D5W 250ML 500 MG/250 ML BAG IV SCH (13:10)
[2018-11-21] MEDS: PROTONIX IV SCH (14:35)
--- NOTE | 2018-11-21 14:49 | XRay Report ---
ABDOMEN 1 VIEW(S) INDICATION / CLINICAL INFORMATION: tube placement. COMPARISON: None available. FINDINGS: TUBES / LINES: The feeding tube terminates in the mid stomach. BOWEL GAS PATTERN: No significant abnormality. FREE AIR / EXTRALUMINAL GAS: None seen. ADDITIONAL FINDINGS: No significant additional findings. IMPRESSION: No significant abnormality. Feeding tube terminates in the mid stomach. Signer Name: Armando Orantes Jr, MD Signed: 11/21/2018 2:44 PM Workstation Name: [id number]
--- NOTE | 2018-11-21 15:47 | Event Note ---
68-year-old man who is status post cardiac arrest This patient had worsening abdominal pain and bloody diarrhea which is most likely due to ischemic colitis from her cardiac arrest Patient has worsening heart failure, now on dobutamine drip She developed respiratory failure on 11/20, after which she was intubated, she is maintained on sedation -Prognosis is very poor, we'll have to schedule a family meeting to discuss goals of care
[2018-11-21] MEDS: HALFPRIN EC PO SCH (17:15)
[2018-11-21] MEDS: ZOLOFT PO SCH (18:43)
[2018-11-22] MEDS: WELLBUTRIN PO SCH ×3 (00:01→23:29)
[2018-11-22] MEDS: CARAFATE PO SCH ×5 (00:01→23:29)
--- NOTE | 2018-11-22 03:18 | XRay Report ---
CHEST - 1 VIEW INDICATION: follow up respiratory failure COMPARISON: Yesterday FINDINGS: Support devices: Stable support device positioning. Heart: Stable cardiomediastinal silhouette. Lungs/pleura: Persistent minimal edema, effusions, and left greater than right basilar atelectasis. Additional findings: None. IMPRESSION: Unchanged exam. Signer Name: Syd Klein MD Signed: 11/22/2018 3:13 AM Workstation Name: [id number]
[2018-11-22] MEDS: LEVOPHED DRIP 4 MG/NS 250 ML 4 MG/250 ML BAG IV SCH ×2 (04:22→12:24)
[2018-11-22] MEDS: DIPRIVAN 10 MG/ML 1,000 MG/100 ML BOTTLE IV SCH ×2 (05:57→17:06)
[2018-11-22 06:12] LABS: Hematocrit 30.5 % (30.3-42.9); Hemoglobin 10.3 gm/dl (10.1-14.3); Mean Corpuscular HGB Conc 34 % (30-34); Mean Corpuscular Volume 102 fl (79-97); Platelet Count 190 K/mm3 (140-440); Red Cell Distribution Width 17.2 % (13.2-15.2)
[2018-11-22] MEDS ORDERED: CATHFLO IV ONE (06:19)
[2018-11-22 06:33] LABS: Calcium 7.3 mg/dL (8.4-10.2)
[2018-11-22] MEDS ORDERED: WATER FOR INJ Sterile (PF) 10 ML ONE (06:33)
--- NOTE | 2018-11-22 09:27 | XRay Report ---
SUPINE ABDOMEN 9:14 AM INDICATION: Dobhoff tube placement confirmation. COMPARISON: One day prior. FINDINGS: The tip of the feeding tube is within the mid to distal stomach. This has been advanced slightly sinc e the prior. Signer Name: Subhash Goodrich MD Signed: 11/22/2018 9:23 AM Workstation Name: [id number]
[2018-11-22] MEDS: ZOLOFT PO SCH (10:01)
[2018-11-22] MEDS: HALFPRIN EC PO SCH (10:01)
[2018-11-22] MEDS: CORDARONE PO SCH ×3 (10:01→23:29)
[2018-11-22] MEDS: PROTONIX IV SCH (10:02)
[2018-11-22 10:28] LABS: Anisocytosis 1+; Band Neutrophils # (Manual) 0.1 K/mm3; Basophils % (Manual) 0 % (0.0-1.8); Eosinophils % (Manual) 0 % (0.0-4.3); Macrocytosis 1+; Total Cells Counted 100
[2018-11-22 10:29] LABS: Ovalocytes Few; Platelet Estimate Consistent w Auto; Poikilocytosis 1+
[2018-11-22] MEDS ORDERED: LASIX IV ONE (10:46)
[2018-11-22] MEDS ORDERED: LASIX 100 MG in NACL 0.9% 50 ML IV SCH (11:00)
--- NOTE | 2018-11-22 11:57 | Progress Note ---
Assessment and Plan 1. Status post cardiopulmonary arrest 2. Respiratory failure on mechanical ventilator 3. Coronary artery disease status posth status post CABG 4. Ischemic cardiomyopathy left ventricular ejection fraction 10-15% 5. Presence of AICD 6. Ischemic colitis 7. Acute kidney injury Plan. Continue present supportive cardiac management weaned off ventilator. Subjective Date of service: 11/22/18 Principal diagnosis: blood in stool Interval history: Alert intubated in no distress Objective Vital Signs Temp Pulse Pulse Resp BP Pulse Ox 11/22/18 11:00 74 16 139/74 100 11/22/18 10:45 80 16 131/86 99 11/22/18 10:31 75 16 145/66 99 11/22/18 10:15 95 H 16 134/68 100 11/22/18 10:01 96 H 18 134/68 99 11/22/18 09:45 96 H 17 130/63 99 11/22/18 09:36 98 H 11/22/18 09:31 91 H 19 130/63 99 11/22/18 09:15 100 H 20 134/74 99 11/22/18 09:00 100 H 18 134/74 100 11/22/18 08:45 118 H 19 123/81 99 11/22/18 08:30 85 16 121/73 100 11/22/18 08:28 126 H 121/73 98 11/22/18 08:15 100 H 16 114/63 98 11/22/18 08:00 89 99 H 19 114/63 100 11/22/18 07:46 98.5 F 11/22/18 07:45 76 16 123/68 99 11/22/18 07:31 82 15 120/60 100 11/22/18 07:15 79 15 108/59 98 11/22/18 07:00 81 16 105/59 98 11/22/18 06:45 77 16 97/55 98 11/22/18 06:30 73 16 104/58 99 11/22/18 06:15 86 16 113/54 99 11/22/18 06:00 83 16 97/67 99 11/22/18 05:45 82 16 104/62 99 11/22/18 05:30 78 16 113/54 99 11/22/18 05:15 75 16 122/63 99 11/22/18 05:00 72 18 121/58 99 11/22/18 04:45 73 18 119/58 99 11/22/18 04:44 78 114/63 99 11/22/18 04:30 80 18 114/63 99 11/22/18 04:15 79 79 18 103/71 100 11/22/18 04:00 127 H 17 103/71 100 11/22/18 03:45 80 18 105/64 100 11/22/18 03:31 78 18 105/64 100 11/22/18 03:15 87 18 104/71 100 11/22/18 03:01 75 17 104/71 100 11/22/18 02:55 98.3 F 11/22/18 02:45 82 18 97/64 100 11/22/18 02:30 86 18 97/64 11/22/18 02:15 75 18 112/58 11/22/18 02:00 96 H 15 112/58 99 11/22/18 01:45 99 H 19 99 11/22/18 01:30 89 16 107/67 100 11/22/18 01:15 92 H 10 L 118/67 100 11/22/18 01:00 95 H 17 118/67 100 11/22/18 00:45 78 18 106/67 100 11/22/18 00:30 81 18 115/67 100 11/22/18 00:18 85 17 100 11/22/18 00:01 75 106/67 99 11/22/18 00:00 79 18 106/67 99 11/21/18 23:57 84 18 120/60 99 11/21/18 23:38 98.8 F 11/21/18 23:31 87 18 120/60 100 11/21/18 23:00 79 18 110/62 100 11/21/18 22:31 76 18 96/63 100 11/21/18 22:01 85 18 86/65 100 11/21/18 22:00 85 11/21/18 21:30 78 17 95/64 100 11/21/18 21:00 78 18 85/64 100 11/21/18 20:30 75 18 95/59 100 11/21/18 20:00 98.3 F 70 18 105/62 100 11/21/18 19:30 84 18 106/63 100 11/21/18 19:13 89 120/64 100 11/21/18 19:00 82 18 120/64 100 11/21/18 18:30 74 18 122/59 100 11/21/18 18:00 72 18 120/63 100 11/21/18 17:51 77 17 114/63 100 11/21/18 17:41 77 18 114/63 100 11/21/18 17:30 73 18 114/63 100 11/21/18 17:24 90 104/60 100 11/21/18 17:21 94 H 18 104/60 100 11/21/18 17:11 73 18 104/60 100 11/21/18 17:00 81 18 104/60 100 11/21/18 16:51 75 18 95/59 100 11/21/18 16:41 79 21 95/59 100 11/21/18 16:30 78 18 95/59 100 11/21/18 16:20 78 23 100/64 100 11/21/18 16:11 74 18 101/65 100 11/21/18 16:00 98.5 F 79 18 101/65 100 11/21/18 15:51 71 18 107/56 100 11/21/18 15:41 80 18 99/53 100 11/21/18 15:31 85 18 99/53 100 11/21/18 15:21 73 18 106/46 100 11/21/18 15:11 73 18 113/59 100 11/21/18 15:00 69 18 113/59 100 11/21/18 14:51 73 18 103/55 100 11/21/18 14:41 74 18 113/60 100 11/21/18 14:31 90 17 113/60 100 11/21/18 14:21 81 16 99/69 100 11/21/18 14:11 75 18 89/62 100 11/21/18 14:00 83 18 89/62 100 11/21/18 13:51 84 18 99/67 100 11/21/18 13:41 82 18 140/78 100 11/21/18 13:30 94 H 18 140/78 100 11/21/18 13:21 92 H 18 131/85 100 11/21/18 13:11 77 18 133/55 100 11/21/18 13:00 83 18 133/55 100 11/21/18 12:51 94 H 18 124/77 98 11/21/18 12:41 81 19 109/46 100 11/21/18 12:31 79 18 109/46 100 11/21/18 12:21 75 14 134/80 100 11/21/18 12:11 85 17 109/64 11/21/18 12:01 77 18 109/64 11/21/18 12:00 97.8 F - Physical Examination General: Other (on the vent) HEENT: Positive: PERRL Neck: Positive: trachea midline Cardiac: Positive: Regular Rate, S1/S2, PMI, Laterally Displaced Lungs: Positive: clear to auscultation, No Wheeze, Rales, Rhonchi Neuro: Positive: Grossly Intact Abdomen: Positive: Ascites Extremities: Present: +1 Edema - Labs and Meds CBC 11/22/18 Range/Units 05:35 WBC 10.9 (4.5-11.0) K/mm3 RBC 3.00 L (3.65-5.03) M/mm3 Hgb 10.3 (10.1-14.3) gm/dl Hct 30.5 D (30.3-42.9) % Plt Count 190 (140-440) K/mm3 Comprehensive Metabolic Panel 11/22/18 Range/Units 05:35 Sodium 136 L (137-145) mmol/L Potassium 3.5 L (3.6-5.0) mmol/L Chloride 97.0 L (98-107) mmol/L Carbon Dioxide 25 (22-30) mmol/L BUN 78 H (7-17) mg/dL Creatinine 4.3 H (0.7-1.2) mg/dL Glucose 159 H (65-100) mg/dL Calcium 7.3 L (8.4-10.2) mg/dL
--- NOTE | 2018-11-22 12:32 | Progress Note ---
Assessment and Plan 68 y/o female with known systolic heart failure, admitted post cardiac arrest, intubated, awake and alert. 1. Unable to discuss code status with sedation on board 2. Unable to discuss trach and peg with current sedation level 3. Called next of kin number in chart. Was given a Cell phone number by the male who answered. [phone] is the cell phone of Meagan Bera. I left a message asking her to return the call. If possible maybe she can give consent regarding trach. If not. We will likely have to extubate patient and discuss the code status and trach situation then if not able to now. CCT 31 minutes. Subjective Date of service: 11/22/18 Principal diagnosis: blood in stool Interval history: No acute events. Off sedation for about an hour today and tolerated PSV the entire time. Became very agitated so placed back on sedation. Per nursing wild with 5 but very sedated at 10. Unable to find a level to give a RASS of O. No family at bedside. Objective Vital Signs - 12hr 11/22/18 11/22/18 11/22/18 00:30 00:45 01:00 Temperature Pulse Rate 81 78 95 H Pulse Rate [ From Monitor] Respiratory 18 18 17 Rate Blood Pressure 115/67 106/67 118/67 O2 Sat by Pulse 100 100 100 Oximetry 11/22/18 11/22/18 11/22/18 01:15 01:30 01:45 Temperature Pulse Rate 92 H 89 99 H Pulse Rate [ From Monitor] Respiratory 10 L 16 19 Rate Blood Pressure 118/67 107/67 O2 Sat by Pulse 100 100 99 Oximetry 11/22/18 11/22/18 11/22/18 02:00 02:15 02:30 Temperature Pulse Rate 96 H 75 86 Pulse Rate [ From Monitor] Respiratory 15 18 18 Rate Blood Pressure 112/58 112/58 97/64 O2 Sat by Pulse 99 Oximetry 11/22/18 11/22/18 11/22/18 02:45 02:55 03:01 Temperature 98.3 F Pulse Rate 82 75 Pulse Rate [ From Monitor] Respiratory 18 17 Rate Blood Pressure 97/64 104/71 O2 Sat by Pulse 100 100 Oximetry 11/22/18 11/22/18 11/22/18 03:15 03:31 03:45 Temperature Pulse Rate 87 78 80 Pulse Rate [ From Monitor] Respiratory 18 18 18 Rate Blood Pressure 104/71 105/64 105/64 O2 Sat by Pulse 100 100 100 Oximetry 11/22/18 11/22/18 11/22/18 04:00 04:15 04:30 Temperature Pulse Rate 127 H 79 80 Pulse Rate [ 79 From Monitor] Respiratory 17 18 18 Rate Blood Pressure 103/71 103/71 114/63 O2 Sat by Pulse 100 100 99 Oximetry 11/22/18 11/22/18 11/22/18 04:44 04:45 05:00 Temperature Pulse Rate 78 73 72 Pulse Rate [ From Monitor] Respiratory 18 18 Rate Blood Pressure 114/63 119/58 121/58 O2 Sat by Pulse 99 99 99 Oximetry 11/22/18 11/22/18 11/22/18 05:15 05:30 05:45 Temperature Pulse Rate 75 78 82 Pulse Rate [ From Monitor] Respiratory 16 16 16 Rate Blood Pressure 122/63 113/54 104/62 O2 Sat by Pulse 99 99 99 Oximetry 11/22/18 11/22/18 11/22/18 06:00 06:15 06:30 Temperature Pulse Rate 83 86 73 Pulse Rate [ From Monitor] Respiratory 16 16 16 Rate Blood Pressure 97/67 113/54 104/58 O2 Sat by Pulse 99 99 99 Oximetry 11/22/18 11/22/18 11/22/18 06:45 07:00 07:15 Temperature Pulse Rate 77 81 79 Pulse Rate [ From Monitor] Respiratory 16 16 15 Rate Blood Pressure 97/55 105/59 108/59 O2 Sat by Pulse 98 98 98 Oximetry 11/22/18 11/22/18 11/22/18 07:31 07:45 07:46 Temperature 98.5 F Pulse Rate 82 76 Pulse Rate [ From Monitor] Respiratory 15 16 Rate Blood Pressure 120/60 123/68 O2 Sat by Pulse 100 99 Oximetry 11/22/18 11/22/18 11/22/18 08:00 08:15 08:28 Temperature Pulse Rate 89 100 H 126 H Pulse Rate [ 99 H From Monitor] Respiratory 19 16 Rate Blood Pressure 114/63 114/63 121/73 O2 Sat by Pulse 100 98 98 Oximetry 11/22/18 11/22/18 11/22/18 08:30 08:45 09:00 Temperature Pulse Rate 85 118 H 100 H Pulse Rate [ From Monitor] Respiratory 16 19 18 Rate Blood Pressure 121/73 123/81 134/74 O2 Sat by Pulse 100 99 100 Oximetry 11/22/18 11/22/18 11/22/18 09:15 09:31 09:36 Temperature Pulse Rate 100 H 91 H 98 H Pulse Rate [ From Monitor] Respiratory 20 19 Rate Blood Pressure 134/74 130/63 O2 Sat by Pulse 99 99 Oximetry 11/22/18 11/22/18 11/22/18 09:45 10:01 10:15 Temperature Pulse Rate 96 H 96 H 95 H Pulse Rate [ From Monitor] Respiratory 17 18 16 Rate Blood Pressure 130/63 134/68 134/68 O2 Sat by Pulse 99 99 100 Oximetry 11/22/18 11/22/18 11/22/18 10:31 10:45 11:00 Temperature Pulse Rate 75 80 74 Pulse Rate [ From Monitor] Respiratory 16 16 16 Rate Blood Pressure 145/66 131/86 139/74 O2 Sat by Pulse 99 99 100 Oximetry 11/22/18 11/22/18 11/22/18 11:15 11:30 11:45 Temperature Pulse Rate 76 69 73 Pulse Rate [ From Monitor] Respiratory 16 16 16 Rate Blood Pressure 138/70 132/60 133/68 O2 Sat by Pulse 99 99 100 Oximetry 11/22/18 12:00 Temperature 98.0 F Pulse Rate 67 Pulse Rate [ 67 From Monitor] Respiratory 16 Rate Blood Pressure 123/65 O2 Sat by Pulse 99 Oximetry Constitutional: no acute distress, alert, other (obese) Eyes: non-icteric ENT: oropharynx moist Neck: supple Effort: normal Ascultation: Bilateral: clear (anteriorly, decreased due to obesity) Percussion: Bilateral: not dull Cardiovascular: regular rate and rhythm (no mrg) Gastrointestinal: normoactive bowel sounds, soft, non-tender, non-distended Integumentary: normal Extremities: pink and warm, edema (2+ bilateral LE edema) Neurologic: normal mental status, non-focal exam, pupils equal and round, CN II- XII normal Psychiatric: mood appropriate, affect normal CBC and BMP: 11/22/18 05:35 11/22/18 05:35 ABG, PT/INR, D-dimer: ABG POC ABG pH 7.452 (7.35-7.45) H 11/22/18 05:07 POC ABG pO2 79 (80-105) L 11/22/18 05:07 POC ABG HCO3 20.6 (22-26 mml/L) 11/22/18 05:07 POC ABG Total CO2 22 (23-27mmol/L) 11/22/18 05:07 POC ABG O2 Sat 96 11/22/18 05:07 PT/INR, D-dimer PT 23.2 Sec. (12.2-14.9) H 11/19/18 Unknown INR 2.11 (0.87-1.13) H 11/19/18 Unknown Abnormal lab findings: Abnormal Labs 11/08/18 11/08/18 11/08/18 03:09 03:09 05:50 WBC RBC 3.37 L MCV 106 H MCH 34 H RDW 17.1 H Lymph % (Auto) 4.6 L [place] % (Auto) 11.5 H Lymph # 0.2 L Seg Neutrophils % 83.0 H Seg Neuts % (Manual) Lymphocytes % (Manual) Monocytes % (Manual) Nucleated RBC % Seg Neutrophils # Man Lymphocytes # (Manual) Monocytes # (Manual) PT INR POC ABG pH POC ABG pCO2 POC ABG pO2 Sodium 135 L Potassium Chloride Carbon Dioxide BUN 29 H Creatinine 1.4 H Glucose POC Glucose Lactic Acid Calcium 8.1 L Phosphorus AST Total Creatine Kinase CK-MB (CK-2) Troponin T 0.042 H 0.039 H Total Protein Albumin LDL Cholesterol Direct 137 H HDL Cholesterol 33 L Lipase Urine Creatinine Urine Total Protein 11/10/18 11/10/18 11/10/18 05:47 07:32 13:08 WBC RBC MCV MCH RDW Lymph % (Auto) [place] % (Auto) Lymph # Seg Neutrophils % Seg Neuts % (Manual) Lymphocytes % (Manual) Monocytes % (Manual) Nucleated RBC % Seg Neutrophils # Man Lymphocytes # (Manual) Monocytes # (Manual) PT INR POC ABG pH POC ABG pCO2 POC ABG pO2 Sodium Potassium Chloride Carbon Dioxide 32 H BUN 25 H Creatinine Glucose 104 H POC Glucose 115 H 142 H Lactic Acid Calcium 7.9 L Phosphorus AST Total Creatine Kinase CK-MB (CK-2) Troponin T Total Protein Albumin LDL Cholesterol Direct HDL Cholesterol Lipase Urine Creatinine Urine Total Protein 11/10/18 11/10/18 11/11/18 16:55 21:21 07:51 WBC RBC MCV MCH RDW Lymph % (Auto) [place] % (Auto) Lymph # Seg Neutrophils % Seg Neuts % (Manual) Lymphocytes % (Manual) Monocytes % (Manual) Nucleated RBC % Seg Neutrophils # Man Lymphocytes # (Manual) Monocytes # (Manual) PT INR POC ABG pH POC ABG pCO2 POC ABG pO2 Sodium Potassium Chloride Carbon Dioxide BUN Creatinine Glucose POC Glucose 125 H 126 H 118 H Lactic Acid Calcium Phosphorus AST Total Creatine Kinase CK-MB (CK-2) Troponin T Total Protein Albumin LDL Cholesterol Direct HDL Cholesterol Lipase Urine Creatinine Urine Total Protein 11/11/18 11/11/18 11/12/18 12:25 21:32 07:46 WBC RBC MCV MCH RDW Lymph % (Auto) [place] % (Auto) Lymph # Seg Neutrophils % Seg Neuts % (Manual) Lymphocytes % (Manual) Monocytes % (Manual) Nucleated RBC % Seg Neutrophils # Man Lymphocytes # (Manual) Monocytes # (Manual) PT INR POC ABG pH POC ABG pCO2 POC ABG pO2 Sodium Potassium Chloride 97.7 L Carbon Dioxide BUN 28 H Creatinine Glucose POC Glucose 125 H 126 H Lactic Acid Calcium 8.0 L Phosphorus AST Total Creatine Kinase CK-MB (CK-2) Troponin T Total Protein Albumin LDL Cholesterol Direct HDL Cholesterol Lipase Urine Creatinine Urine Total Protein 11/12/18 11/12/18 11/13/18 08:57 11:35 05:38 WBC RBC MCV MCH RDW Lymph % (Auto) [place] % (Auto) Lymph # Seg Neutrophils % Seg Neuts % (Manual) Lymphocytes % (Manual) Monocytes % (Manual) Nucleated RBC % Seg Neutrophils # Man Lymphocytes # (Manual) Monocytes # (Manual) PT INR POC ABG pH POC ABG pCO2 POC ABG pO2 Sodium Potassium Chloride 97.3 L Carbon Dioxide 31 H BUN 33 H Creatinine 1.5 H Glucose 111 H POC Glucose 120 H 137 H Lactic Acid Calcium 7.8 L Phosphorus AST Total Creatine Kinase CK-MB (CK-2) Troponin T Total Protein Albumin LDL Cholesterol Direct HDL Cholesterol Lipase Urine Creatinine Urine Total Protein 11/13/18 11/14/18 11/15/18 05:38 06:07 06:11 WBC RBC MCV MCH RDW Lymph % (Auto) [place] % (Auto) Lymph # Seg Neutrophils % Seg Neuts % (Manual) Lymphocytes % (Manual) Monocytes % (Manual) Nucleated RBC % Seg Neutrophils # Man Lymphocytes # (Manual) Monocytes # (Manual) PT INR POC ABG pH POC ABG pCO2 POC ABG pO2 Sodium 135 L Potassium Chloride 96.8 L Carbon Dioxide BUN 36 H Creatinine 1.9 H Glucose 117 H POC Glucose 128 H Lactic Acid Calcium 8.2 L Phosphorus AST Total Creatine Kinase CK-MB (CK-2) Troponin T Total Protein Albumin LDL Cholesterol Direct HDL Cholesterol Lipase 11 L Urine Creatinine Urine Total Protein 11/15/18 11/15/18 11/15/18 08:50 18:41 18:41 WBC RBC 3.51 L MCV 103 H MCH 34 H RDW 17.4 H Lymph % (Auto) 3.3 L [place] % (Auto) 9.2 H Lymph # 0.2 L Seg Neutrophils % 87.2 H Seg Neuts % (Manual) Lymphocytes % (Manual) Monocytes % (Manual) Nucleated RBC % Seg Neutrophils # Man Lymphocytes # (Manual) Monocytes # (Manual) PT INR POC ABG pH 7.533 H POC ABG pCO2 33.9 L POC ABG pO2 237 H Sodium 136 L Potassium Chloride 95.3 L Carbon Dioxide BUN 46 H Creatinine 2.3 H Glucose POC Glucose Lactic Acid Calcium 8.3 L Phosphorus AST Total Creatine Kinase CK-MB (CK-2) Troponin T Total Protein 4.6 L Albumin 1.8 L LDL Cholesterol Direct HDL Cholesterol Lipase Urine Creatinine Urine Total Protein 11/15/18 11/15/18 11/16/18 18:41 18:41 03:53 WBC RBC MCV MCH RDW Lymph % (Auto) [place] % (Auto) Lymph # Seg Neutrophils % Seg Neuts % (Manual) Lymphocytes % (Manual) Monocytes % (Manual) Nucleated RBC % Seg Neutrophils # Man Lymphocytes # (Manual) Monocytes # (Manual) PT 18.6 H INR 1.59 H POC ABG pH 7.507 H POC ABG pCO2 34.9 L POC ABG pO2 133 H Sodium Potassium Chloride Carbon Dioxide BUN Creatinine Glucose POC Glucose Lactic Acid Calcium Phosphorus AST Total Creatine Kinase 293 H CK-MB (CK-2) 5.6 H Troponin T 2.830 H* Total Protein Albumin LDL Cholesterol Direct HDL Cholesterol Lipase Urine Creatinine Urine Total Protein 11/16/18 11/16/18 11/16/18 05:35 05:35 09:26 WBC RBC 3.44 L MCV 103 H MCH 34 H RDW 17.3 H Lymph % (Auto) 2.5 L [place] % (Auto) 9.3 H Lymph # 0.2 L Seg Neutrophils % 87.9 H Seg Neuts % (Manual) Lymphocytes % (Manual) Monocytes % (Manual) Nucleated RBC % Seg Neutrophils # Man Lymphocytes # (Manual) Monocytes # (Manual) PT INR POC ABG pH POC ABG pCO2 POC ABG pO2 Sodium 135 L Potassium Chloride 95.9 L Carbon Dioxide BUN 47 H Creatinine 2.2 H Glucose POC Glucose Lactic Acid Calcium 8.1 L Phosphorus 4.60 H AST Total Creatine Kinase CK-MB (CK-2) Troponin T Total Protein Albumin LDL Cholesterol Direct HDL Cholesterol Lipase Urine Creatinine 103.3 H Urine Total Protein 11/16/18 11/17/18 11/18/18 09:26 10:42 04:45 WBC RBC 3.41 L 3.50 L MCV 104 H 104 H MCH 34 H 34 H RDW 17.4 H 17.7 H Lymph % (Auto) 4.1 L 4.9 L [place] % (Auto) 9.8 H 7.6 H Lymph # 0.2 L 0.3 L Seg Neutrophils % 85.8 H 87.1 H Seg Neuts % (Manual) Lymphocytes % (Manual) Monocytes % (Manual) Nucleated RBC % Seg Neutrophils # Man Lymphocytes # (Manual) Monocytes # (Manual) PT INR POC ABG pH POC ABG pCO2 POC ABG pO2 Sodium Potassium Chloride Carbon Dioxide BUN Creatinine Glucose POC Glucose Lactic Acid Calcium Phosphorus AST Total Creatine Kinase CK-MB (CK-2) Troponin T Total Protein Albumin LDL Cholesterol Direct HDL Cholesterol Lipase Urine Creatinine 102.6 H Urine Total Protein 28 H 11/18/18 11/19/18 11/19/18 04:45 06:48 06:48 WBC RBC 3.63 L MCV 105 H MCH 35 H RDW 17.2 H Lymph % (Auto) 4.0 L [place] % (Auto) Lymph # 0.3 L Seg Neutrophils % 89.3 H Seg Neuts % (Manual) Lymphocytes % (Manual) Monocytes % (Manual) Nucleated RBC % Seg Neutrophils # Man Lymphocytes # (Manual) Monocytes # (Manual) PT INR POC ABG pH POC ABG pCO2 POC ABG pO2 Sodium 135 L Potassium 3.5 L Chloride 95.9 L 95.4 L Carbon Dioxide BUN 58 H 64 H Creatinine 2.7 H 3.3 H Glucose 137 H 102 H POC Glucose Lactic Acid Calcium 7.7 L 8.0 L Phosphorus 5.00 H 6.10 H D AST Total Creatine Kinase CK-MB (CK-2) Troponin T Total Protein Albumin LDL Cholesterol Direct HDL Cholesterol Lipase Urine Creatinine Urine Total Protein 11/19/18 11/20/18 11/20/18 Unknown 01:15 04:30 WBC RBC 3.37 L MCV 105 H MCH 34 H RDW 17.5 H Lymph % (Auto) [place] % (Auto) Lymph # Seg Neutrophils % Seg Neuts % (Manual) 93.0 H Lymphocytes % (Manual) 3.0 L Monocytes % (Manual) Nucleated RBC % 1.0 H Seg Neutrophils # Man 8.1 H Lymphocytes # (Manual) 0.3 L Monocytes # (Manual) PT 23.2 H INR 2.11 H POC ABG pH POC ABG pCO2 POC ABG pO2 Sodium Potassium Chloride Carbon Dioxide BUN Creatinine Glucose POC Glucose Lactic Acid 4.30 H* Calcium Phosphorus AST Total Creatine Kinase CK-MB (CK-2) Troponin T Total Protein Albumin LDL Cholesterol Direct HDL Cholesterol Lipase Urine Creatinine Urine Total Protein 11/20/18 11/20/18 11/20/18 04:30 19:25 21:33 WBC RBC MCV MCH RDW Lymph % (Auto) [place] % (Auto) Lymph # Seg Neutrophils % Seg Neuts % (Manual) Lymphocytes % (Manual) Monocytes % (Manual) Nucleated RBC % Seg Neutrophils # Man Lymphocytes # (Manual) Monocytes # (Manual) PT INR POC ABG pH 7.228 L POC ABG pCO2 30.5 L POC ABG pO2 160 H Sodium 136 L Potassium Chloride 95.5 L Carbon Dioxide BUN 72 H Creatinine 3.6 H Glucose POC Glucose 106 H Lactic Acid Calcium 8.1 L Phosphorus 6.60 H AST Total Creatine Kinase CK-MB (CK-2) Troponin T Total Protein Albumin LDL Cholesterol Direct HDL Cholesterol Lipase Urine Creatinine Urine Total Protein 11/20/18 11/20/18 11/20/18 21:50 22:11 22:20 WBC RBC MCV MCH RDW Lymph % (Auto) [place] % (Auto) Lymph # Seg Neutrophils % Seg Neuts % (Manual) Lymphocytes % (Manual) Monocytes % (Manual) Nucleated RBC % Seg Neutrophils # Man Lymphocytes # (Manual) Monocytes # (Manual) PT INR POC ABG pH POC ABG pCO2 POC ABG pO2 Sodium Potassium Chloride Carbon Dioxide BUN Creatinine Glucose POC Glucose 64 L 110 H Lactic Acid 8.40 H* Calcium Phosphorus AST Total Creatine Kinase CK-MB (CK-2) Troponin T Total Protein Albumin LDL Cholesterol Direct HDL Cholesterol Lipase Urine Creatinine Urine Total Protein 11/20/18 11/20/18 11/21/18 22:20 Unknown 04:52 WBC RBC MCV MCH RDW Lymph % (Auto) [place] % (Auto) Lymph # Seg Neutrophils % Seg Neuts % (Manual) Lymphocytes % (Manual) Monocytes % (Manual) Nucleated RBC % Seg Neutrophils # Man Lymphocytes # (Manual) Monocytes # (Manual) PT INR POC ABG pH 7.643 H POC ABG pCO2 POC ABG pO2 161 H Sodium 134 L Potassium 5.5 H D Chloride 93.4 L Carbon Dioxide 17 L D BUN 72 H Creatinine 4.2 H Glucose POC Glucose Lactic Acid Calcium 8.0 L Phosphorus AST 57 H Total Creatine Kinase CK-MB (CK-2) Troponin T 3.550 H* Total Protein 4.2 L Albumin 2.3 L LDL Cholesterol Direct HDL Cholesterol Lipase Urine Creatinine Urine Total Protein 11/21/18 11/21/18 11/21/18 05:55 05:55 05:55 WBC 12.2 H RBC MCV 103 H MCH 34 H RDW 16.9 H Lymph % (Auto) [place] % (Auto) Lymph # Seg Neutrophils % Seg Neuts % (Manual) 96.0 H Lymphocytes % (Manual) 2.0 L Monocytes % (Manual) Nucleated RBC % Seg Neutrophils # Man 11.7 H Lymphocytes # (Manual) 0.2 L Monocytes # (Manual) PT INR POC ABG pH POC ABG pCO2 POC ABG pO2 Sodium 136 L Potassium Chloride 94.2 L Carbon Dioxide BUN 76 H Creatinine 4.3 H Glucose 134 H POC Glucose Lactic Acid 2.70 H* Calcium 7.9 L Phosphorus 5.90 H AST Total Creatine Kinase CK-MB (CK-2) Troponin T Total Protein Albumin LDL Cholesterol Direct HDL Cholesterol Lipase Urine Creatinine Urine Total Protein 11/21/18 11/21/18 11/21/18 06:00 06:14 07:53 WBC RBC MCV MCH RDW Lymph % (Auto) [place] % (Auto) Lymph # Seg Neutrophils % Seg Neuts % (Manual) Lymphocytes % (Manual) Monocytes % (Manual) Nucleated RBC % Seg Neutrophils # Man Lymphocytes # (Manual) Monocytes # (Manual) PT INR POC ABG pH 7.516 H POC ABG pCO2 30.4 L POC ABG pO2 118 H Sodium Potassium Chloride Carbon Dioxide BUN Creatinine Glucose POC Glucose 154 H Lactic Acid 2.50 H* Calcium Phosphorus AST Total Creatine Kinase CK-MB (CK-2) Troponin T Total Protein Albumin LDL Cholesterol Direct HDL Cholesterol Lipase Urine Creatinine Urine Total Protein 11/21/18 11/21/18 11/22/18 13:08 23:58 05:07 WBC RBC MCV MCH RDW Lymph % (Auto) [place] % (Auto) Lymph # Seg Neutrophils % Seg Neuts % (Manual) Lymphocytes % (Manual) Monocytes % (Manual) Nucleated RBC % Seg Neutrophils # Man Lymphocytes # (Manual) Monocytes # (Manual) PT INR POC ABG pH 7.452 H POC ABG pCO2 POC ABG pO2 79 L Sodium Potassium Chloride Carbon Dioxide BUN Creatinine Glucose POC Glucose 115 H 121 H Lactic Acid Calcium Phosphorus AST Total Creatine Kinase CK-MB (CK-2) Troponin T Total Protein Albumin LDL Cholesterol Direct HDL Cholesterol Lipase Urine Creatinine Urine Total Protein 11/22/18 11/22/18 11/22/18 05:35 05:35 05:44 WBC RBC 3.00 L MCV 102 H MCH 34 H RDW 17.2 H Lymph % (Auto) [place] % (Auto) Lymph # Seg Neutrophils % Seg Neuts % (Manual) 89.0 H Lymphocytes % (Manual) 2.0 L Monocytes % (Manual) 8.0 H Nucleated RBC % Seg Neutrophils # Man 9.7 H Lymphocytes # (Manual) 0.2 L Monocytes # (Manual) 0.9 H PT INR POC ABG pH POC ABG pCO2 POC ABG pO2 Sodium 136 L Potassium 3.5 L Chloride 97.0 L Carbon Dioxide BUN 78 H Creatinine 4.3 H Glucose 159 H POC Glucose 119 H Lactic Acid Calcium 7.3 L Phosphorus AST Total Creatine Kinase CK-MB (CK-2) Troponin T Total Protein Albumin LDL Cholesterol Direct HDL Cholesterol Lipase Urine Creatinine Urine Total Protein
[2018-11-22] MEDS: DOBUTREX DRIP 500MG/D5W 250ML 500 MG/250 ML BAG IV SCH (14:31)
--- NOTE | 2018-11-22 15:55 | Progress Note ---
Assessment and Plan Acute renal failure likely ischemic due to cardiac arrest Hypoxic respiratory failure on mechanical ventilation Acute on Chronic systolic heart failure with EF of 10-15 % Paroxysmal atrial fibrillation - Renal function reviewed. Serum creatinine 4.3 today, yesterday's level was 4.3 - 24 hour urine collection was ordered - Lasix 100 mg IV X 1 ordered - No proteinruia, renal US negative for obstruction - Renally dose medications - Strict I&O monitoring - Obtain daily weights - Continue to monitor renal function - May need HD if no improvement in renal function Subjective Date of service: 11/22/18 Principal diagnosis: blood in stool Interval history: Intubated on Vent. Objective - Exam Narrative Exam: General appearance: sedated on ventilator, intubated EENT: ATNC, PERRL Neck: no JVD, supple Respiratory: Present: Decreased Breath Sounds, Other (Intubated) Cardiology: S1S2 Gastrointestinal: normoactive bowel sounds Integumentary: warm and dry Neurologic: other (Sedated) Musculoskeletal: joint swelling - Vital Signs Vital signs: Vital Signs - 12hr 11/22/18 11/22/18 11/22/18 04:00 04:15 04:30 Temperature Pulse Rate 127 H 79 80 Pulse Rate [ 79 From Monitor] Respiratory 17 18 18 Rate Blood Pressure 103/71 103/71 114/63 O2 Sat by Pulse 100 100 99 Oximetry 11/22/18 11/22/18 11/22/18 04:44 04:45 05:00 Temperature Pulse Rate 78 73 72 Pulse Rate [ From Monitor] Respiratory 18 18 Rate Blood Pressure 114/63 119/58 121/58 O2 Sat by Pulse 99 99 99 Oximetry 11/22/18 11/22/18 11/22/18 05:15 05:30 05:45 Temperature Pulse Rate 75 78 82 Pulse Rate [ From Monitor] Respiratory 16 16 16 Rate Blood Pressure 122/63 113/54 104/62 O2 Sat by Pulse 99 99 99 Oximetry 11/22/18 11/22/18 11/22/18 06:00 06:15 06:30 Temperature Pulse Rate 83 86 73 Pulse Rate [ From Monitor] Respiratory 16 16 16 Rate Blood Pressure 97/67 113/54 104/58 O2 Sat by Pulse 99 99 99 Oximetry 11/22/18 11/22/18 11/22/18 06:45 07:00 07:15 Temperature Pulse Rate 77 81 79 Pulse Rate [ From Monitor] Respiratory 16 16 15 Rate Blood Pressure 97/55 105/59 108/59 O2 Sat by Pulse 98 98 98 Oximetry 11/22/18 11/22/18 11/22/18 07:31 07:45 07:46 Temperature 98.5 F Pulse Rate 82 76 Pulse Rate [ From Monitor] Respiratory 15 16 Rate Blood Pressure 120/60 123/68 O2 Sat by Pulse 100 99 Oximetry 11/22/18 11/22/18 11/22/18 08:00 08:15 08:28 Temperature Pulse Rate 89 100 H 126 H Pulse Rate [ 99 H From Monitor] Respiratory 19 16 Rate Blood Pressure 114/63 114/63 121/73 O2 Sat by Pulse 100 98 98 Oximetry 11/22/18 11/22/18 11/22/18 08:30 08:45 09:00 Temperature Pulse Rate 85 118 H 100 H Pulse Rate [ From Monitor] Respiratory 16 19 18 Rate Blood Pressure 121/73 123/81 134/74 O2 Sat by Pulse 100 99 100 Oximetry 11/22/18 11/22/18 11/22/18 09:15 09:31 09:36 Temperature Pulse Rate 100 H 91 H 98 H Pulse Rate [ From Monitor] Respiratory 20 19 Rate Blood Pressure 134/74 130/63 O2 Sat by Pulse 99 99 Oximetry 11/22/18 11/22/18 11/22/18 09:45 10:01 10:15 Temperature Pulse Rate 96 H 96 H 95 H Pulse Rate [ From Monitor] Respiratory 17 18 16 Rate Blood Pressure 130/63 134/68 134/68 O2 Sat by Pulse 99 99 100 Oximetry 11/22/18 11/22/18 11/22/18 10:31 10:45 11:00 Temperature Pulse Rate 75 80 74 Pulse Rate [ From Monitor] Respiratory 16 16 16 Rate Blood Pressure 145/66 131/86 139/74 O2 Sat by Pulse 99 99 100 Oximetry 11/22/18 11/22/18 11/22/18 11:15 11:30 11:45 Temperature Pulse Rate 76 69 73 Pulse Rate [ From Monitor] Respiratory 16 16 16 Rate Blood Pressure 138/70 132/60 133/68 O2 Sat by Pulse 99 99 100 Oximetry 11/22/18 11/22/18 11/22/18 12:00 12:15 12:30 Temperature 98.0 F Pulse Rate 67 71 71 Pulse Rate [ 67 From Monitor] Respiratory 16 16 16 Rate Blood Pressure 123/65 130/66 123/55 O2 Sat by Pulse 99 99 99 Oximetry 11/22/18 11/22/18 11/22/18 12:45 13:00 13:10 Temperature Pulse Rate 73 73 70 Pulse Rate [ From Monitor] Respiratory 16 16 Rate Blood Pressure 123/65 130/67 130/67 O2 Sat by Pulse 99 99 99 Oximetry 11/22/18 11/22/18 11/22/18 13:15 13:30 13:45 Temperature Pulse Rate 90 73 71 Pulse Rate [ From Monitor] Respiratory 16 15 16 Rate Blood Pressure 123/70 133/64 126/71 O2 Sat by Pulse 98 99 99 Oximetry 11/22/18 11/22/18 11/22/18 14:00 14:15 14:30 Temperature Pulse Rate 74 74 72 Pulse Rate [ From Monitor] Respiratory 16 16 16 Rate Blood Pressure 123/68 135/67 126/65 O2 Sat by Pulse 99 99 99 Oximetry 11/22/18 11/22/18 11/22/18 14:45 15:00 15:15 Temperature Pulse Rate 71 74 72 Pulse Rate [ From Monitor] Respiratory 16 17 16 Rate Blood Pressure 117/67 132/65 126/60 O2 Sat by Pulse 100 99 99 Oximetry 11/22/18 15:30 Temperature Pulse Rate 76 Pulse Rate [ From Monitor] Respiratory 16 Rate Blood Pressure 122/66 O2 Sat by Pulse 99 Oximetry - Lab 11/22/18 05:35 11/22/18 05:35 Most recent lab results Calcium 7.3 mg/dL (8.4-10.2) L 11/22/18 05:35 Phosphorus 5.90 mg/dL (2.5-4.5) H 11/21/18 05:55 Magnesium 2.30 mg/dL (1.7-2.3) 11/20/18 22:20 102.6 mg/dL (0.1-20.0) H 11/16/18 09:26 103.3 mg/dL (0.1-20.0) H 11/16/18 09:26 28 mg/dL (5-11.8) H 11/16/18 09:26 Medications & Allergies - Medications Allergies/Adverse Reactions: Allergies lisinopril Allergy (Verified 02/24/18 09:15) Anaphylaxis Penicillins Allergy (Verified 02/24/18 09:15) Seizure Sulfa (Sulfonamide Antibiotics) Adverse Reaction (Verified 02/24/18 09:15) Hives Home Medications: Home Medications Medication Instructions Recorded Confirmed Last Taken Type Aspirin [Adult Aspirin] 81 mg PO DAILY 02/24/18 11/08/18 05/09/18 History Spironolactone [Aldactone] 25 mg PO QDAY 02/24/18 11/08/18 05/09/18 History buPROPion SR [Wellbutrin SR] 150 mg PO BID 02/24/18 11/08/18 05/09/18 History Albuterol Sulfate [Ventolin HFA] 1 puff IH Q6H PRN 30 Days 03/03/18 11/08/18 05/09/18 Rx hfa.[email or web address].[email or web address] Cyclobenzaprine [Flexeril 10 MG 10 mg PO TID PRN 05/10/18 11/08/18 05/09/18 History TAB] Diphenhydramine HCl [Allergy 25 mg PO DAILY 05/10/18 11/08/18 05/09/18 History Relief] ISOSORBIDE MONOnitrate [Imdur ER] 60 mg PO QDAY 05/10/18 11/08/18 05/09/18 History Sertraline HCl [Zoloft] 50 mg PO DAILY 05/10/18 11/08/18 05/09/18 History hydrALAZINE [Apresoline TAB] 25 mg PO Q8HR 05/10/18 11/08/18 05/09/18 History Apixaban [Eliquis] 5 mg PO Q12HR #60 tablet 07/02/18 11/08/18 Unknown Rx Pantoprazole [Protonix TAB] 40 mg PO QDAY #30 tablet 07/02/18 11/08/18 Unknown Rx Polyethylene Glycol 3350 [Miralax 17 gm PO BID PRN #30 powd.pack 07/02/18 11/08/18 Unknown Rx 3350] Carvedilol [Coreg] 3.125 mg PO BID #60 tablet 09/10/18 11/08/18 Unknown Rx Magnesium Oxide [Mag-Ox] 400 mg PO QDAY #7 tablet 10/04/18 11/08/18 Unknown Rx Potassium Chloride [K-Dur] 20 meq PO QDAY #7 tablet 10/04/18 11/08/18 Unknown Rx Torsemide [Demadex] 40 mg PO BID #60 tablet 10/04/18 11/08/18 Unknown Rx metOLazone [Zaroxolyn] 5 mg PO QDAY #30 tablet 10/04/18 11/08/18 Unknown Rx Active Medications: Generic Name Dose Route Start Last Admin Trade Name Freq PRN Reason Stop Dose Admin Albuterol 2.5 mg 11/09/18 08:00 11/20/18 22:07 Proventil IH 2.5 mg Q4HRT PRN Administration Shortness Of Breath Amiodarone HCl 200 mg 11/10/18 22:00 11/22/18 10:01 Cordarone PO 200 mg BID RADHA Administration Aspirin 81 mg 11/09/18 10:00 11/22/18 10:01 Halfprin Ec PO 81 mg DAILY RADHA Administration Atorvastatin Calcium 40 mg 11/11/18 22:00 11/22/18 00:00 Lipitor PO 40 mg QHS RADHA Administration Bupropion HCl 150 mg 11/21/18 10:00 11/22/18 10:02 Wellbutrin PO 150 mg BID RADHA Administration Dextrose 50 ml 11/20/18 21:45 D50w (25gm) Syringe IV PRN PRN Hypoglycemia Hydromorphone HCl 0.5 mg 11/19/18 11:21 Dilaudid IV Q3H PRN Pain , Severe (7-10) Hydrophilic Ointment 1 applic 11/20/18 20:27 Vaseline Lip Therapy TP Q2HR PRN Dry Lips Norepinephrine 4 mg in 250 mls @ 7.5 mls/hr 11/20/18 21:00 11/22/18 15:47 Levophed Drip 4 Mg/Ns 250 Ml IV 6 mcg/min TITR RADHA 22.5 mls/hr Titration Protocol 2 MCG/MIN Propofol 1,000 mg in 100 mls @ 3.648 mls/hr 11/20/18 21:00 11/22/18 06:13 Diprivan 10 Mg/Ml IV 10 mcg/kg/min TITR RADHA 7.296 mls/hr Titration Protocol 5 MCG/KG/MIN Dobutamine HCl/Dextrose 500 mg in 250 mls @ 9.12 mls/hr 11/21/18 11:00 11/22/18 14:31 Dobutrex Drip 500mg/D5w 250ml IV 2.5 mcg/kg/min DIRECT RADHA 9.12 mls/hr Administration Protocol 2.5 MCG/KG/MIN Furosemide 100 mg/ Sodium 60 mls @ 120 mls/hr 11/22/18 11:00 11/22/18 11:48 Chloride IV 120 mls/hr ONCE RADHA Administration Metoprolol Tartrate 2.5 mg 11/21/18 09:18 Lopressor IV Q6HR PRN Tachyarrhythmias Midazolam HCl 2 mg 11/20/18 20:27 11/21/18 04:08 Versed IV 2 mg Q10MIN PRN Administration Sedation Multi-Ingred Cream/Lotion/Oil/Oint 1 applic 11/20/18 20:27 Artificial Tears Ophth Oint OU Q4HR PRN Dry Eye(s) Ondansetron HCl 4 mg 11/11/18 13:44 11/18/18 17:51 Zofran IV 4 mg Q8H PRN Administration Nausea And Vomiting Pantoprazole Sodium 40 mg 11/21/18 10:00 11/22/18 10:02 Protonix IV 40 mg QDAY RADHA Administration Polyethylene Glycol 17 gm 11/09/18 10:00 Miralax 3350 PO BID PRN Constipation Sertraline HCl 50 mg 11/09/18 10:00 11/22/18 10:01 Zoloft PO 50 mg DAILY RADHA Administration Simethicone 80 mg 11/12/18 11:49 11/15/18 04:05 Mylicon PO 80 mg Q6H PRN Administration Gas pain Sucralfate 1 gm 11/12/18 16:30 11/22/18 12:24 Carafate PO 1 gm ACHS RADHA Administration
[2018-11-22] MEDS: BUMEX PO SCH ×2 (19:12→19:19)
[2018-11-22] MEDS: LOPRESSOR PO SCH ×4 (19:12→22:01)
--- NOTE | 2018-11-23 02:33 | XRay Report ---
CHEST - 1 VIEW INDICATION: follow up respiratory failure COMPARISON: Yesterday FINDINGS: Support devices: Stable support device positioning. Heart: Stable cardiomediastinal silhouette. Lungs/pleura: Stable patchy symmetric airspace disease which may reflect edema. Additional findings: None. IMPRESSION: Unchanged exam. Signer Name: Syd Klein MD Signed: 11/23/2018 2:28 AM Workstation Name: [id number]
[2018-11-23 05:54] LABS: Calcium 7.9 mg/dL (8.4-10.2)
[2018-11-23] MEDS: CARAFATE PO SCH ×4 (07:50→22:45)
--- NOTE | 2018-11-23 09:42 | Progress Note ---
Assessment and Plan 1. Status post cardiopulmonary arrest 2. Respiratory failure on mechanical ventilator 3. Coronary artery disease status posth status post CABG 4. Ischemic cardiomyopathy left ventricular ejection fraction 10-15% 5. Presence of AICD 6. Ischemic colitis 7. Acute kidney injury Plan. Continue present supportive cardiac management weaned off ventilator.May need dialysis for fluid management Continue dobuamine drip. Subjective Date of service: 11/23/18 Principal diagnosis: blood in stool Interval history: Alert intubated in no distress Objective Vital Signs Temp Pulse Pulse Resp BP Pulse Ox 11/23/18 08:38 74 114/59 100 11/23/18 08:21 72 11/23/18 08:15 70 14 118/49 100 11/23/18 08:00 72 14 112/59 100 11/23/18 07:56 97.7 F 11/23/18 07:45 75 14 111/58 100 11/23/18 07:30 71 14 109/55 100 11/23/18 07:15 71 14 88/58 100 11/23/18 07:01 71 14 95/55 100 11/23/18 06:45 67 14 88/58 100 11/23/18 06:30 74 14 88/58 100 11/23/18 06:15 70 14 93/60 100 11/23/18 06:00 71 14 95/60 100 11/23/18 05:45 81 14 106/59 99 11/23/18 05:30 70 14 106/59 100 11/23/18 05:15 74 14 89/57 99 11/23/18 05:00 76 14 89/57 100 11/23/18 04:45 72 14 104/54 100 11/23/18 04:30 72 14 109/54 100 11/23/18 04:15 73 14 113/53 100 11/23/18 04:00 98.0 F 73 72 14 100/59 100 11/23/18 03:45 72 14 103/60 100 11/23/18 03:30 69 14 103/62 100 11/23/18 03:15 77 16 113/57 100 11/23/18 03:06 74 118/62 99 11/23/18 03:00 79 16 118/62 100 11/23/18 02:45 71 16 112/58 99 11/23/18 02:30 71 16 117/58 100 11/23/18 02:15 75 16 101/62 100 11/23/18 02:00 66 16 101/62 99 11/23/18 01:45 76 16 106/63 99 11/23/18 01:30 71 16 103/57 99 11/23/18 01:15 72 16 105/56 99 11/23/18 01:00 70 16 105/51 99 11/23/18 00:45 73 16 110/58 100 11/23/18 00:30 72 16 124/64 100 11/23/18 00:15 73 19 115/56 99 11/23/18 00:00 74 72 16 124/55 100 11/22/18 23:45 72 16 120/56 99 11/22/18 23:35 73 15 108/55 99 11/22/18 23:30 73 16 108/55 100 11/22/18 23:24 97.3 F L 11/22/18 23:15 75 14 104/63 99 11/22/18 23:00 70 16 123/70 100 11/22/18 22:45 71 16 122/62 100 11/22/18 22:30 97 H 17 110/73 99 11/22/18 22:15 73 16 113/65 100 11/22/18 22:01 75 16 112/58 100 11/22/18 21:45 71 16 82/58 100 11/22/18 21:30 73 16 92/65 100 11/22/18 21:15 80 11 L 102/66 100 11/22/18 21:00 72 16 102/66 100 11/22/18 20:45 71 16 116/64 100 11/22/18 20:30 73 16 121/59 100 11/22/18 20:15 77 16 120/67 100 11/22/18 20:01 89 16 103/52 100 11/22/18 20:00 99.9 F H 72 18 100 11/22/18 19:45 76 17 119/55 98 11/22/18 19:30 79 16 110/62 100 11/22/18 19:18 77 114/57 99 11/22/18 19:15 69 15 114/57 99 11/22/18 19:00 77 16 116/61 100 11/22/18 18:45 74 13 115/68 99 11/22/18 18:31 69 17 114/54 99 08/10/19 18:15 72 16 123/56 99 11/22/18 18:00 70 16 123/56 99 11/22/18 17:45 72 16 123/69 99 11/22/18 17:30 75 15 121/62 99 11/22/18 17:15 71 16 128/57 99 11/22/18 17:00 77 13 122/53 97 11/22/18 16:45 73 16 119/62 100 11/22/18 16:30 77 16 119/62 99 11/22/18 16:29 79 119/62 99 11/22/18 16:15 71 16 130/61 99 11/22/18 16:00 97.7 F 65 65 15 141/60 99 11/22/18 15:45 70 16 129/63 99 11/22/18 15:30 76 16 122/66 99 11/22/18 15:15 72 16 126/60 99 11/22/18 15:00 74 17 132/65 99 11/22/18 14:45 71 16 117/67 100 11/22/18 14:30 72 16 126/65 99 11/22/18 14:15 74 16 135/67 99 11/22/18 14:00 74 16 123/68 99 11/22/18 13:45 71 16 126/71 99 11/22/18 13:30 73 15 133/64 99 11/22/18 13:15 90 16 123/70 98 11/22/18 13:10 70 130/67 99 11/22/18 13:00 73 16 130/67 99 11/22/18 12:45 73 16 123/65 99 11/22/18 12:30 71 16 123/55 99 11/22/18 12:15 71 16 130/66 99 11/22/18 12:00 98.0 F 67 67 16 123/65 99 11/22/18 11:45 73 16 133/68 100 11/22/18 11:30 69 16 132/60 99 11/22/18 11:15 76 16 138/70 99 11/22/18 11:00 74 16 139/74 100 11/22/18 10:45 80 16 131/86 99 11/22/18 10:31 75 16 145/66 99 11/22/18 10:15 95 H 16 134/68 100 11/22/18 10:01 96 H 18 134/68 99 11/22/18 09:45 96 H 17 130/63 99 - Physical Examination General: Other (on the vent) HEENT: Positive: PERRL Neck: Positive: trachea midline Cardiac: Positive: Regular Rate, S1/S2, PMI, Laterally Displaced. Negative: S3, S4 Lungs: Positive: clear to auscultation, No Wheeze, Rales, Rhonchi Neuro: Positive: Grossly Intact Abdomen: Positive: Soft, Active Bowel Sounds Extremities: Absent: edema - Labs and Meds Comprehensive Metabolic Panel 11/23/18 Range/Units 04:22 Sodium 137 (137-145) mmol/L Potassium 3.2 L (3.6-5.0) mmol/L Chloride 95.4 L (98-107) mmol/L Carbon Dioxide 27 (22-30) mmol/L BUN 83 H (7-17) mg/dL Creatinine 5.0 H (0.7-1.2) mg/dL Glucose 82 (65-100) mg/dL Calcium 7.9 L (8.4-10.2) mg/dL
--- NOTE | 2018-11-23 10:27 | Progress Note ---
Assessment and Plan 68 y/o female with known systolic heart failure, admitted post cardiac arrest, intubated, awake and alert. 1. Unable to discuss code status with sedation on board 2. Unable to discuss trach and peg with current sedation level 3. Called next of kin number in chart. Was given a Cell phone number by the male who answered. [phone] is the cell phone of Meagan Bear. I left a message asking her to return the call. If possible maybe she can give consent regarding trach. If not. We will likely have to extubate patient and discuss the code status and trach situation then if not able to now. Will call again today to see if I can arrange a family meeting. 4. Per nursing, vascular requested patient be NPO for possible procedure today? No note from them. Will speak to [facility] physician about this. CCT 31 minutes. Subjective Date of service: 11/23/18 Principal diagnosis: blood in stool Interval history: Down to levophed at 1 and Diprovan at 2.5. Rass is 0. Awake. Follows commands. Does pull at tube so has to be restrained. Family did not call back yesterday. Objective Vital Signs - 12hr 11/22/18 11/22/18 11/22/18 22:30 22:45 23:00 Temperature Pulse Rate 97 H 71 70 Pulse Rate [ From Monitor] Respiratory 17 16 16 Rate Blood Pressure 110/73 122/62 123/70 O2 Sat by Pulse 99 100 100 Oximetry 11/22/18 11/22/18 11/22/18 23:15 23:24 23:30 Temperature 97.3 F L Pulse Rate 75 73 Pulse Rate [ From Monitor] Respiratory 14 16 Rate Blood Pressure 104/63 108/55 O2 Sat by Pulse 99 100 Oximetry 11/22/18 11/22/18 11/23/18 23:35 23:45 00:00 Temperature Pulse Rate 73 72 74 Pulse Rate [ 72 From Monitor] Respiratory 15 16 16 Rate Blood Pressure 108/55 120/56 124/55 O2 Sat by Pulse 99 99 100 Oximetry 11/23/18 11/23/18 11/23/18 00:15 00:30 00:45 Temperature Pulse Rate 73 72 73 Pulse Rate [ From Monitor] Respiratory 19 16 16 Rate Blood Pressure 115/56 124/64 110/58 O2 Sat by Pulse 99 100 100 Oximetry 08/03/0311/23/18 11/23/18 01:00 01:15 01:30 Temperature Pulse Rate 70 72 71 Pulse Rate [ From Monitor] Respiratory 16 16 16 Rate Blood Pressure 105/51 105/56 103/57 O2 Sat by Pulse 99 99 99 Oximetry 11/23/18 11/23/18 11/23/18 01:45 02:00 02:15 Temperature Pulse Rate 76 66 75 Pulse Rate [ From Monitor] Respiratory 16 16 16 Rate Blood Pressure 106/63 101/62 101/62 O2 Sat by Pulse 99 99 100 Oximetry 11/23/18 11/23/18 11/23/18 02:30 02:45 03:00 Temperature Pulse Rate 71 71 79 Pulse Rate [ From Monitor] Respiratory 16 16 16 Rate Blood Pressure 117/58 112/58 118/62 O2 Sat by Pulse 100 99 100 Oximetry 11/23/18 11/23/18 11/23/18 03:06 03:15 03:30 Temperature Pulse Rate 74 77 69 Pulse Rate [ From Monitor] Respiratory 16 14 Rate Blood Pressure 118/62 113/57 103/62 O2 Sat by Pulse 99 100 100 Oximetry 11/23/18 11/23/18 11/23/18 03:45 04:00 04:15 Temperature 98.0 F Pulse Rate 72 73 73 Pulse Rate [ 72 From Monitor] Respiratory 14 14 14 Rate Blood Pressure 103/60 100/59 113/53 O2 Sat by Pulse 100 100 100 Oximetry 11/23/18 11/23/18 11/23/18 04:30 04:45 05:00 Temperature Pulse Rate 72 72 76 Pulse Rate [ From Monitor] Respiratory 14 14 14 Rate Blood Pressure 109/54 104/54 89/57 O2 Sat by Pulse 100 100 100 Oximetry 11/23/18 11/23/18 11/23/18 05:15 05:30 05:45 Temperature Pulse Rate 74 70 81 Pulse Rate [ From Monitor] Respiratory 14 14 14 Rate Blood Pressure 89/57 106/59 106/59 O2 Sat by Pulse 99 100 99 Oximetry 11/23/18 11/23/18 11/23/18 06:00 06:15 06:30 Temperature Pulse Rate 71 70 74 Pulse Rate [ From Monitor] Respiratory 14 14 14 Rate Blood Pressure 95/60 93/60 88/58 O2 Sat by Pulse 100 100 100 Oximetry 11/23/18 11/23/18 11/23/18 06:45 07:01 07:15 Temperature Pulse Rate 67 71 71 Pulse Rate [ From Monitor] Respiratory 14 14 14 Rate Blood Pressure 88/58 95/55 88/58 O2 Sat by Pulse 100 100 100 Oximetry 11/23/18 11/23/18 11/23/18 07:30 07:45 07:56 Temperature 97.7 F Pulse Rate 71 75 Pulse Rate [ From Monitor] Respiratory 14 14 Rate Blood Pressure 109/55 111/58 O2 Sat by Pulse 100 100 Oximetry 11/23/18 11/23/18 11/23/18 08:00 08:15 08:21 Temperature Pulse Rate 72 70 72 Pulse Rate [ From Monitor] Respiratory 14 14 Rate Blood Pressure 112/59 118/49 O2 Sat by Pulse 100 100 Oximetry 11/23/18 08:38 Temperature Pulse Rate 74 Pulse Rate [ From Monitor] Respiratory Rate Blood Pressure 114/59 O2 Sat by Pulse 100 Oximetry Constitutional: no acute distress, alert, other (obese) Eyes: non-icteric ENT: oropharynx moist Neck: supple Effort: normal Ascultation: Bilateral: clear (anteriorly, decreased due to obesity) Percussion: Bilateral: not dull Cardiovascular: regular rate and rhythm (no mrg) Gastrointestinal: normoactive bowel sounds, soft, non-tender, non-distended Integumentary: normal Extremities: pink and warm, edema (2+ bilateral LE edema) Neurologic: normal mental status, non-focal exam, pupils equal and round, CN II- XII normal Psychiatric: mood appropriate, affect normal CBC and BMP: 11/22/18 05:35 11/23/18 04:22 ABG, PT/INR, D-dimer: ABG POC ABG pH 7.530 (7.35-7.45) H 11/23/18 03:29 POC ABG pCO2 32.3 (35-45) L 11/23/18 03:29 POC ABG pO2 83 (80-105) 11/23/18 03:29 POC ABG HCO3 27.0 (22-26 mml/L) 11/23/18 03:29 POC ABG Total CO2 28 (23-27mmol/L) 11/23/18 03:29 POC ABG O2 Sat 97 11/23/18 03:29 PT/INR, D-dimer PT 23.2 Sec. (12.2-14.9) H 11/19/18 Unknown INR 2.11 (0.87-1.13) H 11/19/18 Unknown Abnormal lab findings: Abnormal Labs 11/08/18 11/08/18 11/08/18 03:09 03:09 05:50 WBC RBC 3.37 L MCV 106 H MCH 34 H RDW 17.1 H Lymph % (Auto) 4.6 L [place] % (Auto) 11.5 H Lymph # 0.2 L Seg Neutrophils % 83.0 H Seg Neuts % (Manual) Lymphocytes % (Manual) Monocytes % (Manual) Nucleated RBC % Seg Neutrophils # Man Lymphocytes # (Manual) Monocytes # (Manual) PT INR POC ABG pH POC ABG pCO2 POC ABG pO2 Sodium 135 L Potassium Chloride Carbon Dioxide BUN 29 H Creatinine 1.4 H Glucose POC Glucose Lactic Acid Calcium 8.1 L Phosphorus AST Total Creatine Kinase CK-MB (CK-2) Troponin T 0.042 H 0.039 H Total Protein Albumin LDL Cholesterol Direct 137 H HDL Cholesterol 33 L Lipase Urine Creatinine Urine Total Protein 11/10/18 11/10/18 11/10/18 05:47 07:32 13:08 WBC RBC MCV MCH RDW Lymph % (Auto) [place] % (Auto) Lymph # Seg Neutrophils % Seg Neuts % (Manual) Lymphocytes % (Manual) Monocytes % (Manual) Nucleated RBC % Seg Neutrophils # Man Lymphocytes # (Manual) Monocytes # (Manual) PT INR POC ABG pH POC ABG pCO2 POC ABG pO2 Sodium Potassium Chloride Carbon Dioxide 32 H BUN 25 H Creatinine Glucose 104 H POC Glucose 115 H 142 H Lactic Acid Calcium 7.9 L Phosphorus AST Total Creatine Kinase CK-MB (CK-2) Troponin T Total Protein Albumin LDL Cholesterol Direct HDL Cholesterol Lipase Urine Creatinine Urine Total Protein 11/10/18 11/10/18 11/11/18 16:55 21:21 07:51 WBC RBC MCV MCH RDW Lymph % (Auto) [place] % (Auto) Lymph # Seg Neutrophils % Seg Neuts % (Manual) Lymphocytes % (Manual) Monocytes % (Manual) Nucleated RBC % Seg Neutrophils # Man Lymphocytes # (Manual) Monocytes # (Manual) PT INR POC ABG pH POC ABG pCO2 POC ABG pO2 Sodium Potassium Chloride Carbon Dioxide BUN Creatinine Glucose POC Glucose 125 H 126 H 118 H Lactic Acid Calcium Phosphorus AST Total Creatine Kinase CK-MB (CK-2) Troponin T Total Protein Albumin LDL Cholesterol Direct HDL Cholesterol Lipase Urine Creatinine Urine Total Protein 11/11/18 11/11/18 11/12/18 12:25 21:32 07:46 WBC RBC MCV MCH RDW Lymph % (Auto) [place] % (Auto) Lymph # Seg Neutrophils % Seg Neuts % (Manual) Lymphocytes % (Manual) Monocytes % (Manual) Nucleated RBC % Seg Neutrophils # Man Lymphocytes # (Manual) Monocytes # (Manual) PT INR POC ABG pH POC ABG pCO2 POC ABG pO2 Sodium Potassium Chloride 97.7 L Carbon Dioxide BUN 28 H Creatinine Glucose POC Glucose 125 H 126 H Lactic Acid Calcium 8.0 L Phosphorus AST Total Creatine Kinase CK-MB (CK-2) Troponin T Total Protein Albumin LDL Cholesterol Direct HDL Cholesterol Lipase Urine Creatinine Urine Total Protein 11/12/18 11/12/18 11/13/18 08:57 11:35 05:38 WBC RBC MCV MCH RDW Lymph % (Auto) [place] % (Auto) Lymph # Seg Neutrophils % Seg Neuts % (Manual) Lymphocytes % (Manual) Monocytes % (Manual) Nucleated RBC % Seg Neutrophils # Man Lymphocytes # (Manual) Monocytes # (Manual) PT INR POC ABG pH POC ABG pCO2 POC ABG pO2 Sodium Potassium Chloride 97.3 L Carbon Dioxide 31 H BUN 33 H Creatinine 1.5 H Glucose 111 H POC Glucose 120 H 137 H Lactic Acid Calcium 7.8 L Phosphorus AST Total Creatine Kinase CK-MB (CK-2) Troponin T Total Protein Albumin LDL Cholesterol Direct HDL Cholesterol Lipase Urine Creatinine Urine Total Protein 11/13/18 11/14/18 11/15/18 05:38 06:07 06:11 WBC RBC MCV MCH RDW Lymph % (Auto) [place] % (Auto) Lymph # Seg Neutrophils % Seg Neuts % (Manual) Lymphocytes % (Manual) Monocytes % (Manual) Nucleated RBC % Seg Neutrophils # Man Lymphocytes # (Manual) Monocytes # (Manual) PT INR POC ABG pH POC ABG pCO2 POC ABG pO2 Sodium 135 L Potassium Chloride 96.8 L Carbon Dioxide BUN 36 H Creatinine 1.9 H Glucose 117 H POC Glucose 128 H Lactic Acid Calcium 8.2 L Phosphorus AST Total Creatine Kinase CK-MB (CK-2) Troponin T Total Protein Albumin LDL Cholesterol Direct HDL Cholesterol Lipase 11 L Urine Creatinine Urine Total Protein 11/15/18 11/15/18 11/15/18 08:50 18:41 18:41 WBC RBC 3.51 L MCV 103 H MCH 34 H RDW 17.4 H Lymph % (Auto) 3.3 L [place] % (Auto) 9.2 H Lymph # 0.2 L Seg Neutrophils % 87.2 H Seg Neuts % (Manual) Lymphocytes % (Manual) Monocytes % (Manual) Nucleated RBC % Seg Neutrophils # Man Lymphocytes # (Manual) Monocytes # (Manual) PT INR POC ABG pH 7.533 H POC ABG pCO2 33.9 L POC ABG pO2 237 H Sodium 136 L Potassium Chloride 95.3 L Carbon Dioxide BUN 46 H Creatinine 2.3 H Glucose POC Glucose Lactic Acid Calcium 8.3 L Phosphorus AST Total Creatine Kinase CK-MB (CK-2) Troponin T Total Protein 4.6 L Albumin 1.8 L LDL Cholesterol Direct HDL Cholesterol Lipase Urine Creatinine Urine Total Protein 11/15/18 11/15/18 11/16/18 18:41 18:41 03:53 WBC RBC MCV MCH RDW Lymph % (Auto) [place] % (Auto) Lymph # Seg Neutrophils % Seg Neuts % (Manual) Lymphocytes % (Manual) Monocytes % (Manual) Nucleated RBC % Seg Neutrophils # Man Lymphocytes # (Manual) Monocytes # (Manual) PT 18.6 H INR 1.59 H POC ABG pH 7.507 H POC ABG pCO2 34.9 L POC ABG pO2 133 H Sodium Potassium Chloride Carbon Dioxide BUN Creatinine Glucose POC Glucose Lactic Acid Calcium Phosphorus AST Total Creatine Kinase 293 H CK-MB (CK-2) 5.6 H Troponin T 2.830 H* Total Protein Albumin LDL Cholesterol Direct HDL Cholesterol Lipase Urine Creatinine Urine Total Protein 11/16/18 11/16/18 11/16/18 05:35 05:35 09:26 WBC RBC 3.44 L MCV 103 H MCH 34 H RDW 17.3 H Lymph % (Auto) 2.5 L [place] % (Auto) 9.3 H Lymph # 0.2 L Seg Neutrophils % 87.9 H Seg Neuts % (Manual) Lymphocytes % (Manual) Monocytes % (Manual) Nucleated RBC % Seg Neutrophils # Man Lymphocytes # (Manual) Monocytes # (Manual) PT INR POC ABG pH POC ABG pCO2 POC ABG pO2 Sodium 135 L Potassium Chloride 95.9 L Carbon Dioxide BUN 47 H Creatinine 2.2 H Glucose POC Glucose Lactic Acid Calcium 8.1 L Phosphorus 4.60 H AST Total Creatine Kinase CK-MB (CK-2) Troponin T Total Protein Albumin LDL Cholesterol Direct HDL Cholesterol Lipase Urine Creatinine 103.3 H Urine Total Protein 11/16/18 11/17/18 11/18/18 09:26 10:42 04:45 WBC RBC 3.41 L 3.50 L MCV 104 H 104 H MCH 34 H 34 H RDW 17.4 H 17.7 H Lymph % (Auto) 4.1 L 4.9 L [place] % (Auto) 9.8 H 7.6 H Lymph # 0.2 L 0.3 L Seg Neutrophils % 85.8 H 87.1 H Seg Neuts % (Manual) Lymphocytes % (Manual) Monocytes % (Manual) Nucleated RBC % Seg Neutrophils # Man Lymphocytes # (Manual) Monocytes # (Manual) PT INR POC ABG pH POC ABG pCO2 POC ABG pO2 Sodium Potassium Chloride Carbon Dioxide BUN Creatinine Glucose POC Glucose Lactic Acid Calcium Phosphorus AST Total Creatine Kinase CK-MB (CK-2) Troponin T Total Protein Albumin LDL Cholesterol Direct HDL Cholesterol Lipase Urine Creatinine 102.6 H Urine Total Protein 28 H 11/18/18 11/19/18 11/19/18 04:45 06:48 06:48 WBC RBC 3.63 L MCV 105 H MCH 35 H RDW 17.2 H Lymph % (Auto) 4.0 L [place] % (Auto) Lymph # 0.3 L Seg Neutrophils % 89.3 H Seg Neuts % (Manual) Lymphocytes % (Manual) Monocytes % (Manual) Nucleated RBC % Seg Neutrophils # Man Lymphocytes # (Manual) Monocytes # (Manual) PT INR POC ABG pH POC ABG pCO2 POC ABG pO2 Sodium 135 L Potassium 3.5 L Chloride 95.9 L 95.4 L Carbon Dioxide BUN 58 H 64 H Creatinine 2.7 H 3.3 H Glucose 137 H 102 H POC Glucose Lactic Acid Calcium 7.7 L 8.0 L Phosphorus 5.00 H 6.10 H D AST Total Creatine Kinase CK-MB (CK-2) Troponin T Total Protein Albumin LDL Cholesterol Direct HDL Cholesterol Lipase Urine Creatinine Urine Total Protein 11/19/18 11/20/18 11/20/18 Unknown 01:15 04:30 WBC RBC 3.37 L MCV 105 H MCH 34 H RDW 17.5 H Lymph % (Auto) [place] % (Auto) Lymph # Seg Neutrophils % Seg Neuts % (Manual) 93.0 H Lymphocytes % (Manual) 3.0 L Monocytes % (Manual) Nucleated RBC % 1.0 H Seg Neutrophils # Man 8.1 H Lymphocytes # (Manual) 0.3 L Monocytes # (Manual) PT 23.2 H INR 2.11 H POC ABG pH POC ABG pCO2 POC ABG pO2 Sodium Potassium Chloride Carbon Dioxide BUN Creatinine Glucose POC Glucose Lactic Acid 4.30 H* Calcium Phosphorus AST Total Creatine Kinase CK-MB (CK-2) Troponin T Total Protein Albumin LDL Cholesterol Direct HDL Cholesterol Lipase Urine Creatinine Urine Total Protein 11/20/18 11/20/18 11/20/18 04:30 19:25 21:33 WBC RBC MCV MCH RDW Lymph % (Auto) [place] % (Auto) Lymph # Seg Neutrophils % Seg Neuts % (Manual) Lymphocytes % (Manual) Monocytes % (Manual) Nucleated RBC % Seg Neutrophils # Man Lymphocytes # (Manual) Monocytes # (Manual) PT INR POC ABG pH 7.228 L POC ABG pCO2 30.5 L POC ABG pO2 160 H Sodium 136 L Potassium Chloride 95.5 L Carbon Dioxide BUN 72 H Creatinine 3.6 H Glucose POC Glucose 106 H Lactic Acid Calcium 8.1 L Phosphorus 6.60 H AST Total Creatine Kinase CK-MB (CK-2) Troponin T Total Protein Albumin LDL Cholesterol Direct HDL Cholesterol Lipase Urine Creatinine Urine Total Protein 11/20/18 11/20/18 11/20/18 21:50 22:11 22:20 WBC RBC MCV MCH RDW Lymph % (Auto) [place] % (Auto) Lymph # Seg Neutrophils % Seg Neuts % (Manual) Lymphocytes % (Manual) Monocytes % (Manual) Nucleated RBC % Seg Neutrophils # Man Lymphocytes # (Manual) Monocytes # (Manual) PT INR POC ABG pH POC ABG pCO2 POC ABG pO2 Sodium Potassium Chloride Carbon Dioxide BUN Creatinine Glucose POC Glucose 64 L 110 H Lactic Acid 8.40 H* Calcium Phosphorus AST Total Creatine Kinase CK-MB (CK-2) Troponin T Total Protein Albumin LDL Cholesterol Direct HDL Cholesterol Lipase Urine Creatinine Urine Total Protein 11/20/18 11/20/18 11/21/18 22:20 Unknown 04:52 WBC RBC MCV MCH RDW Lymph % (Auto) [place] % (Auto) Lymph # Seg Neutrophils % Seg Neuts % (Manual) Lymphocytes % (Manual) Monocytes % (Manual) Nucleated RBC % Seg Neutrophils # Man Lymphocytes # (Manual) Monocytes # (Manual) PT INR POC ABG pH 7.643 H POC ABG pCO2 POC ABG pO2 161 H Sodium 134 L Potassium 5.5 H D Chloride 93.4 L Carbon Dioxide 17 L D BUN 72 H Creatinine 4.2 H Glucose POC Glucose Lactic Acid Calcium 8.0 L Phosphorus AST 57 H Total Creatine Kinase CK-MB (CK-2) Troponin T 3.550 H* Total Protein 4.2 L Albumin 2.3 L LDL Cholesterol Direct HDL Cholesterol Lipase Urine Creatinine Urine Total Protein 11/21/18 11/21/18 11/21/18 05:55 05:55 05:55 WBC 12.2 H RBC MCV 103 H MCH 34 H RDW 16.9 H Lymph % (Auto) [place] % (Auto) Lymph # Seg Neutrophils % Seg Neuts % (Manual) 96.0 H Lymphocytes % (Manual) 2.0 L Monocytes % (Manual) Nucleated RBC % Seg Neutrophils # Man 11.7 H Lymphocytes # (Manual) 0.2 L Monocytes # (Manual) PT INR POC ABG pH POC ABG pCO2 POC ABG pO2 Sodium 136 L Potassium Chloride 94.2 L Carbon Dioxide BUN 76 H Creatinine 4.3 H Glucose 134 H POC Glucose Lactic Acid 2.70 H* Calcium 7.9 L Phosphorus 5.90 H AST Total Creatine Kinase CK-MB (CK-2) Troponin T Total Protein Albumin LDL Cholesterol Direct HDL Cholesterol Lipase Urine Creatinine Urine Total Protein 11/21/18 11/21/18 11/21/18 06:00 06:14 07:53 WBC RBC MCV MCH RDW Lymph % (Auto) [place] % (Auto) Lymph # Seg Neutrophils % Seg Neuts % (Manual) Lymphocytes % (Manual) Monocytes % (Manual) Nucleated RBC % Seg Neutrophils # Man Lymphocytes # (Manual) Monocytes # (Manual) PT INR POC ABG pH 7.516 H POC ABG pCO2 30.4 L POC ABG pO2 118 H Sodium Potassium Chloride Carbon Dioxide BUN Creatinine Glucose POC Glucose 154 H Lactic Acid 2.50 H* Calcium Phosphorus AST Total Creatine Kinase CK-MB (CK-2) Troponin T Total Protein Albumin LDL Cholesterol Direct HDL Cholesterol Lipase Urine Creatinine Urine Total Protein 11/21/18 11/21/18 11/22/18 13:08 23:58 05:07 WBC RBC MCV MCH RDW Lymph % (Auto) [place] % (Auto) Lymph # Seg Neutrophils % Seg Neuts % (Manual) Lymphocytes % (Manual) Monocytes % (Manual) Nucleated RBC % Seg Neutrophils # Man Lymphocytes # (Manual) Monocytes # (Manual) PT INR POC ABG pH 7.452 H POC ABG pCO2 POC ABG pO2 79 L Sodium Potassium Chloride Carbon Dioxide BUN Creatinine Glucose POC Glucose 115 H 121 H Lactic Acid Calcium Phosphorus AST Total Creatine Kinase CK-MB (CK-2) Troponin T Total Protein Albumin LDL Cholesterol Direct HDL Cholesterol Lipase Urine Creatinine Urine Total Protein 11/22/18 11/22/18 11/22/18 05:35 05:35 05:44 WBC RBC 3.00 L MCV 102 H MCH 34 H RDW 17.2 H Lymph % (Auto) [place] % (Auto) Lymph # Seg Neutrophils % Seg Neuts % (Manual) 89.0 H Lymphocytes % (Manual) 2.0 L Monocytes % (Manual) 8.0 H Nucleated RBC % Seg Neutrophils # Man 9.7 H Lymphocytes # (Manual) 0.2 L Monocytes # (Manual) 0.9 H PT INR POC ABG pH POC ABG pCO2 POC ABG pO2 Sodium 136 L Potassium 3.5 L Chloride 97.0 L Carbon Dioxide BUN 78 H Creatinine 4.3 H Glucose 159 H POC Glucose 119 H Lactic Acid Calcium 7.3 L Phosphorus AST Total Creatine Kinase CK-MB (CK-2) Troponin T Total Protein Albumin LDL Cholesterol Direct HDL Cholesterol Lipase Urine Creatinine Urine Total Protein 11/23/18 11/23/18 03:29 04:22 WBC RBC MCV MCH RDW Lymph % (Auto) [place] % (Auto) Lymph # Seg Neutrophils % Seg Neuts % (Manual) Lymphocytes % (Manual) Monocytes % (Manual) Nucleated RBC % Seg Neutrophils # Man Lymphocytes # (Manual) Monocytes # (Manual) PT INR POC ABG pH 7.530 H POC ABG pCO2 32.3 L POC ABG pO2 Sodium Potassium 3.2 L Chloride 95.4 L Carbon Dioxide BUN 83 H Creatinine 5.0 H Glucose POC Glucose Lactic Acid Calcium 7.9 L Phosphorus AST Total Creatine Kinase CK-MB (CK-2) Troponin T Total Protein Albumin LDL Cholesterol Direct HDL Cholesterol Lipase Urine Creatinine Urine Total Protein
[2018-11-23] MEDS: WELLBUTRIN PO SCH ×2 (10:56→22:45)
[2018-11-23] MEDS: PROTONIX IV SCH (10:56)
[2018-11-23] MEDS: HALFPRIN EC PO SCH (10:56)
[2018-11-23] MEDS: CORDARONE PO SCH ×2 (10:56→22:44)
[2018-11-23] MEDS: ZOLOFT PO SCH (10:56)
[2018-11-23] MEDS ORDERED: LASIX IV SCH (11:00)
[2018-11-23] MEDS ORDERED: PANCREAZE DR 10,500 UNIT FEEDTUBE PRN ×2 (11:32→11:36)
[2018-11-23] MEDS ORDERED: SODIUM BICARBONATE FEEDTUBE PRN ×2 (11:32→11:36)
[2018-11-23] MEDS ORDERED: SIMPLE SYRUP FEEDTUBE PRN ×2 (11:36)
--- NOTE | 2018-11-23 15:06 | Progress Note ---
Assessment and Plan Acute renal failure likely ischemic due to cardiac arrest Hypoxic respiratory failure on mechanical ventilation Acute on Chronic systolic heart failure with EF of 10-15 % Paroxysmal atrial fibrillation - Renal function reviewed. Serum creatinine worsening. - 24 hour urine collection was ordered - CXR congested. Start lasix 80 mg TID IV Diuresis. - No proteinruia, renal US negative for obstruction - Renally dose medications - Strict I&O monitoring - Obtain daily weights - Continue to monitor renal function - May need HD if no improvement in renal function Subjective Date of service: 11/23/18 Principal diagnosis: blood in stool Interval history: Intubated on Vent. Making urine. Objective - Exam Narrative Exam: General appearance: sedated on ventilator, intubated EENT: ATNC, PERRL Neck: no JVD, supple Respiratory: Present: Decreased Breath Sounds, Other (Intubated) Cardiology: S1S2 Gastrointestinal: normoactive bowel sounds Integumentary: warm and dry Neurologic: other (Sedated) Musculoskeletal: joint swelling - Vital Signs Vital signs: Vital Signs - 12hr 11/23/18 11/23/18 11/23/18 03:06 03:15 03:30 Temperature Pulse Rate 74 77 69 Pulse Rate [ From Monitor] Respiratory 16 14 Rate Blood Pressure 118/62 113/57 103/62 O2 Sat by Pulse 99 100 100 Oximetry 11/23/18 11/23/18 11/23/18 03:45 04:00 04:15 Temperature 98.0 F Pulse Rate 72 73 73 Pulse Rate [ 72 From Monitor] Respiratory 14 14 14 Rate Blood Pressure 103/60 100/59 113/53 O2 Sat by Pulse 100 100 100 Oximetry 11/23/18 11/23/18 11/23/18 04:30 04:45 05:00 Temperature Pulse Rate 72 72 76 Pulse Rate [ From Monitor] Respiratory 14 14 14 Rate Blood Pressure 109/54 104/54 89/57 O2 Sat by Pulse 100 100 100 Oximetry 11/23/18 11/23/18 11/23/18 05:15 05:30 05:45 Temperature Pulse Rate 74 70 81 Pulse Rate [ From Monitor] Respiratory 14 14 14 Rate Blood Pressure 89/57 106/59 106/59 O2 Sat by Pulse 99 100 99 Oximetry 11/23/18 11/23/18 11/23/18 06:00 06:15 06:30 Temperature Pulse Rate 71 70 74 Pulse Rate [ From Monitor] Respiratory 14 14 14 Rate Blood Pressure 95/60 93/60 88/58 O2 Sat by Pulse 100 100 100 Oximetry 11/23/18 11/23/18 11/23/18 06:45 07:01 07:15 Temperature Pulse Rate 67 71 71 Pulse Rate [ From Monitor] Respiratory 14 14 14 Rate Blood Pressure 88/58 95/55 88/58 O2 Sat by Pulse 100 100 100 Oximetry 11/23/18 11/23/18 11/23/18 07:30 07:45 07:56 Temperature 97.7 F Pulse Rate 71 75 Pulse Rate [ From Monitor] Respiratory 14 14 Rate Blood Pressure 109/55 111/58 O2 Sat by Pulse 100 100 Oximetry 11/23/18 11/23/18 11/23/18 08:00 08:15 08:21 Temperature Pulse Rate 72 70 72 Pulse Rate [ 72 From Monitor] Respiratory 14 14 Rate Blood Pressure 112/59 118/49 O2 Sat by Pulse 100 100 Oximetry 11/23/18 11/23/18 11/23/18 08:30 08:38 08:45 Temperature Pulse Rate 72 74 73 Pulse Rate [ From Monitor] Respiratory 14 13 Rate Blood Pressure 114/59 114/59 95/58 O2 Sat by Pulse 100 100 100 Oximetry 11/23/18 11/23/18 11/23/18 09:01 09:15 09:31 Temperature Pulse Rate 80 72 79 Pulse Rate [ From Monitor] Respiratory 14 14 14 Rate Blood Pressure 120/58 120/58 107/60 O2 Sat by Pulse 100 Oximetry 11/23/18 11/23/18 11/23/18 09:46 10:00 10:16 Temperature Pulse Rate 71 71 70 Pulse Rate [ From Monitor] Respiratory 14 14 15 Rate Blood Pressure 114/63 114/63 O2 Sat by Pulse 100 100 100 Oximetry 11/23/18 11/23/18 11/23/18 10:30 10:46 11:00 Temperature Pulse Rate 71 70 69 Pulse Rate [ From Monitor] Respiratory 14 15 14 Rate Blood Pressure 122/66 122/66 132/57 O2 Sat by Pulse 100 100 100 Oximetry 11/23/18 11/23/18 11/23/18 11:16 11:30 11:46 Temperature Pulse Rate 71 70 74 Pulse Rate [ From Monitor] Respiratory 14 14 14 Rate Blood Pressure 132/57 123/51 123/51 O2 Sat by Pulse 100 100 100 Oximetry 11/23/18 11/23/18 11/23/18 12:00 12:16 12:30 Temperature 97.3 F L Pulse Rate 72 69 70 Pulse Rate [ 72 From Monitor] Respiratory 14 15 14 Rate Blood Pressure 106/60 106/60 106/60 O2 Sat by Pulse 100 100 100 Oximetry 11/23/18 11/23/18 11/23/18 12:46 12:48 13:00 Temperature Pulse Rate 71 67 69 Pulse Rate [ From Monitor] Respiratory 14 14 Rate Blood Pressure 104/56 104/56 104/56 O2 Sat by Pulse 100 100 100 Oximetry 11/23/18 11/23/18 11/23/18 13:16 13:30 13:46 Temperature Pulse Rate 70 69 71 Pulse Rate [ From Monitor] Respiratory 14 17 15 Rate Blood Pressure 83/56 104/59 104/59 O2 Sat by Pulse 100 100 100 Oximetry 11/23/18 11/23/18 11/23/18 14:00 14:16 14:30 Temperature Pulse Rate 68 65 74 Pulse Rate [ From Monitor] Respiratory 14 14 14 Rate Blood Pressure 100/61 100/61 115/54 O2 Sat by Pulse 100 100 98 Oximetry 11/23/18 14:46 Temperature Pulse Rate 71 Pulse Rate [ From Monitor] Respiratory 14 Rate Blood Pressure 115/54 O2 Sat by Pulse 100 Oximetry - Lab 11/22/18 05:35 11/23/18 04:22 Most recent lab results Calcium 7.9 mg/dL (8.4-10.2) L 11/23/18 04:22 Phosphorus 5.90 mg/dL (2.5-4.5) H 11/21/18 05:55 Magnesium 2.30 mg/dL (1.7-2.3) 11/20/18 22:20 102.6 mg/dL (0.1-20.0) H 11/16/18 09:26 103.3 mg/dL (0.1-20.0) H 11/16/18 09:26 28 mg/dL (5-11.8) H 11/16/18 09:26 Medications & Allergies - Medications Allergies/Adverse Reactions: Allergies lisinopril Allergy (Verified 02/24/18 09:15) Anaphylaxis Penicillins Allergy (Verified 02/24/18 09:15) Seizure Sulfa (Sulfonamide Antibiotics) Adverse Reaction (Verified 02/24/18 09:15) Hives Home Medications: Home Medications Medication Instructions Recorded Confirmed Last Taken Type Aspirin [Adult Aspirin] 81 mg PO DAILY 02/24/18 11/08/18 05/09/18 History Spironolactone [Aldactone] 25 mg PO QDAY 02/24/18 11/08/18 05/09/18 History buPROPion SR [Wellbutrin SR] 150 mg PO BID 02/24/18 11/08/18 05/09/18 History Albuterol Sulfate [Ventolin HFA] 1 puff IH Q6H PRN 30 Days 03/03/18 11/08/18 Rx [email or web address] Cyclobenzaprine [Flexeril 10 MG 10 mg PO TID PRN 05/10/18 11/08/18 05/09/18 History TAB] Diphenhydramine HCl [Allergy 25 mg PO DAILY 05/10/18 11/08/18 05/09/18 History Relief] ISOSORBIDE MONOnitrate [Imdur ER] 60 mg PO QDAY 05/10/18 11/08/18 05/09/18 Hist ory Sertraline HCl [Zoloft] 50 mg PO DAILY 05/10/18 11/08/18 05/09/18 History hydrALAZINE [Apresoline TAB] 25 mg PO Q8HR 05/10/18 11/08/18 05/09/18 History Apixaban [Eliquis] 5 mg PO Q12HR #60 tablet 07/02/18 11/08/18 Unknown Rx Pantoprazole [Protonix TAB] 40 mg PO QDAY #30 tablet 07/02/18 11/08/18 Unknown Rx Polyethylene Glycol 3350 [Miralax 17 gm PO BID PRN #30 powd.pack 07/02/1811/08 Unknown Rx 3350] Carvedilol [Coreg] 3.125 mg PO BID #60 tablet 09/10/18 11/08/18 Unknown Rx Magnesium Oxide [Mag-Ox] 400 mg PO QDAY #7 tablet 10/04/18 11/08/18 Unknown Rx Potassium Chloride [K-Dur] 20 meq PO QDAY #7 tablet 10/04/18 11/08/18 Unknown Rx Torsemide [Demadex] 40 mg PO BID #60 tablet 10/04/18 11/08/18 Unknown Rx metOLazone [Zaroxolyn] 5 mg PO QDAY #30 tablet 10/04/18 11/08/18 Unknown Rx Active Medications: Generic Name Dose Route Start Last Admin Trade Name Freq PRN Reason Stop Dose Admin Albuterol 2.5 mg 11/09/18 08:00 11/20/18 22:07 Proventil IH 2.5 mg Q4HRT PRN Administration Shortness Of Breath Amiodarone HCl 200 mg 11/10/18 22:00 11/23/18 10:56 Cordarone PO 200 mg BID RADHA Administration Lipase/Protease/Amylase 1 each 11/23/18 11:36 Pancreaze 10,500 Unit FEEDTUBE PRN PRN For Clogged Feeding Tube Aspirin 81 mg 11/09/18 10:00 11/23/18 10:56 Halfprin Ec PO 81 mg DAILY RADHA Administration Atorvastatin Calcium 40 mg 11/11/18 22:00 11/22/18 23:29 Lipitor PO 40 mg QHS RADHA Administration Bupropion HCl 150 mg 11/21/18 10:00 11/23/18 10:56 Wellbutrin PO 150 mg BID RADHA Administration Dextrose 50 ml 11/20/18 21:45 D50w (25gm) Syringe IV PRN PRN Hypoglycemia Furosemide 80 mg 11/23/18 11:00 11/23/18 11:52 Lasix IV 80 mg Q8H RADHA Administration Hydromorphone HCl 0.5 mg 11/19/18 11:21 Dilaudid IV Q3H PRN Pain , Severe (7-10) Hydrophilic Ointment 1 applic 11/20/18 20:27 Vaseline Lip Therapy TP Q2HR PRN Dry Lips Norepinephrine 4 mg in 250 mls @ 7.5 mls/hr 11/20/18 21:00 11/22/18 21:15 Levophed Drip 4 Mg/Ns 250 Ml IV 2 mcg/min TITR RADHA 7.5 mls/hr Titration Protocol 2 MCG/MIN Propofol 1,000 mg in 100 mls @ 3.648 mls/hr 11/20/18 21:00 11/22/18 18:30 Diprivan 10 Mg/Ml IV 5 mcg/kg/min TITR RADHA 3.648 mls/hr Titration Protocol 5 MCG/KG/MIN Dobutamine HCl/Dextrose 500 mg in 250 mls @ 9.12 mls/hr 11/21/18 11:00 11/22/18 14:31 Dobutrex Drip 500mg/D5w 250ml IV 2.5 mcg/kg/min DIRECT RADHA 9.12 mls/hr Administration Protocol 2.5 MCG/KG/MIN Furosemide 100 mg/ Sodium 60 mls @ 120 mls/hr 11/22/18 11:00 11/22/18 11:48 Chloride IV 120 mls/hr ONCE RADHA Administration Metoprolol Tartrate 2.5 mg 11/21/18 09:18 Lopressor IV Q6HR PRN Tachyarrhythmias Midazolam HCl 2 mg 11/20/18 20:27 11/21/18 04:08 Versed IV 2 mg Q10MIN PRN Administration Sedation Multi-Ingred Cream/Lotion/Oil/Oint 1 applic 11/20/18 20:27 Artificial Tears Ophth Oint OU Q4HR PRN Dry Eye(s) Ondansetron HCl 4 mg 11/11/18 13:44 11/18/18 17:51 Zofran IV 4 mg Q8H PRN Administration Nausea And Vomiting Pantoprazole Sodium 40 mg 11/21/18 10:00 11/23/18 10:56 Protonix IV 40 mg QDAY RADHA Administration Polyethylene Glycol 17 gm 11/09/18 10:00 Miralax 3350 PO BID PRN Constipation Sertraline HCl 50 mg 11/09/18 10:00 11/23/18 10:56 Zoloft PO 50 mg DAILY RADHA Administration Simethicone 80 mg 11/12/18 11:49 11/15/18 04:05 Mylicon PO 80 mg Q6H PRN Administration Gas pain Simple Syrup 15 ml 11/23/18 11:36 Simple Syrup FEEDTUBE PRN PRN Hypoglycemia Simple Syrup 30 ml 11/23/18 11:36 Simple Syrup FEEDTUBE PRN PRN Hypoglycemia Sodium Bicarbonate 325 mg 11/23/18 11:36 Sodium Bicarbonate FEEDTUBE PRN PRN For Clogged Feeding Tube Sucralfate 1 gm 11/12/18 16:30 11/23/18 11:53 Carafate PO 1 gm ACHS RADHA Administration
[2018-11-23] MEDS: DOBUTREX DRIP 500MG/D5W 250ML 500 MG/250 ML BAG IV SCH (17:10)
[2018-11-23] MEDS: DIPRIVAN 10 MG/ML 1,000 MG/100 ML BOTTLE IV SCH (17:12)
--- NOTE | 2018-11-23 17:25 | Progress Note ---
Assessment and Plan Assessment and plan: Patient is a 68 year old -[place] female who was initially admitted for acute on chronic systolic heart failure. She was managed with IV milrinone drip and IV bumex by cardiology. The drip was discontinued on 11/13 while the IV Bumex was changed to oral on 11/14. Early this morning, she coded and was successfully resuscitated and transferred to the ICU S/p cardiac arrest x2 -Successfully resuscitated -patient arrested again on 11/20 Acute on chronic respiratory failure with hypoxia on MV > 96 hours extubated on 11/16, care per pulmonology reintubated on 11/20 after second cardiac arrest, cont MV, mgt per pulmonology cardiogenic Shock on pressors, on dobutamine drip, and levophed Acute on Chronic systolic heart failure with EF of 10-15 % mgt per cardiology, on dobutamine drip, and diuretics as tolerated ACUTE GI BLEED Most likely due to ischemic colitis from cardiac arrest, patient is too unstable for any intervention at this time, hemoglobin stable Paroxysmal atrial fibrillation -Rate currently controlled, meds per cardiology -eliquis now on hold given gi bleed Hx of LUE DVT -eliquis on hold due to gi bleed Hx of coronary artery disease -cardiac cath 03/2018 revealed patent SVG to LAD, patent SVG to OM, patent SVG to PDA and patent diagonal stent, LVEF 10-15%. -Continue medical management KERWIN, likely vasomotor nephropathy, ATN and/diuretic use Management as per nephrology, worsening, may need HD if does not improve COPD, chronic and stable Tobacco abuse -Patient counseled on cessation > 11 minutes Morbid obesity with BMI of 42.9 -Lifestyle modification recommended -preventative health counseling >17 minutes Prognosis is very poor. Cardiac arrest 2 and multiorgan failure, we'll plan to schedule a family meeting for early next week if patient does not improve Critical care time 35 minutes History Interval history: The patient is intubated and sedated, requiring pressors and dobutamine drip, patient also still having bloody bowel movement Hospitalist Physical - Physical exam Narrative exam: General.: Intubated and sedated . appears chronically ill HEENT: Moist mucous membranes, extraocular muscles intact, no lymphadenopathy Neck: supple Cardiac: S1-S2 heard Lungs: Bibasilar Rales Abdomen: soft , nontender, nondistended, bowel sounds positive Extremities: no edema clubbing or cyanosis Skin: no rash or lesions Neurologic: no gross focal deficits Psych: calm, and cooperative - Constitutional Vitals: Temp Pulse Resp BP Pulse Ox 97.2 F L 71 14 98/64 100 11/23/18 16:00 11/23/18 16:00 11/23/18 16:00 11/23/18 16:00 11/23/18 16:00 General appearance: Present: other (intubated) Results - Labs CBC & Chem 7: 11/22/18 05:35 11/23/18 04:22 Labs: Laboratory Last Values WBC 10.9 K/mm3 (4.5-11.0) 11/22/18 05:35 RBC 3.00 M/mm3 (3.65-5.03) L 11/22/18 05:35 Hgb 10.3 gm/dl (10.1-14.3) 11/22/18 05:35 Hct 30.5 % (30.3-42.9) D 11/22/18 05:35 MCV 102 fl (79-97) H 11/22/18 05:35 MCH 34 pg (28-32) H 11/22/18 05:35 MCHC 34 % (30-34) 11/22/18 05:35 RDW 17.2 % (13.2-15.2) H 11/22/18 05:35 Plt Count 190 K/mm3 (140-440) 11/22/18 05:35 Lymph % (Auto) 4.0 % (13.4-35.0) L 11/19/18 06:48 [place] % (Auto) 6.1 % (0.0-7.3) 11/19/18 06:48 Eos % (Auto) 0.0 % (0.0-4.3) 11/19/18 06:48 Baso % (Auto) 0.6 % (0.0-1.8) 11/19/18 06:48 Lymph # 0.3 K/mm3 (1.2-5.4) L 11/19/18 06:48 [place] # 0.5 K/mm3 (0.0-0.8) 11/19/18 06:48 Eos # 0.0 K/mm3 (0.0-0.4) 11/19/18 06:48 Baso # 0.0 K/mm3 (0.0-0.1) 11/19/18 06:48 Add Manual Diff Complete 11/22/18 05:35 Total Counted 100 11/22/18 05:35 Seg Neutrophils % [employer] 11/22/18 05:35 Seg Neuts % (Manual) 89.0 % (40.0-70.0) H 11/22/18 05:35 1.0 % 11/22/18 05:35 2.0 % (13.4-35.0) L 11/22/18 05:35 Reactive Lymphs % (Man) 0 % 11/22/18 05:35 8.0 % (0.0-7.3) H 11/22/18 05:35 0 % (0.0-4.3) 11/22/18 05:35 0 % (0.0-1.8) 11/22/18 05:35 0 % 11/22/18 05:35 0 % 11/22/18 05:35 0 % 11/22/18 05:35 0 % 11/22/18 05:35 Nucleated RBC % Not Reportable 11/22/18 05:35 Seg Neutrophils # 7.4 K/mm3 (1.8-7.7) 11/19/18 06:48 Seg Neutrophils # Man 9.7 K/mm3 (1.8-7.7) H 11/22/18 05:35 Band Neutrophils # 0.1 K/mm3 11/22/18 05:35 0.2 K/mm3 (1.2-5.4) L 11/22/18 05:35 Abs React Lymphs (Man) 0.0 K/mm3 11/22/18 05:35 0.9 K/mm3 (0.0-0.8) H 11/22/18 05:35 0.0 K/mm3 (0.0-0.4) 11/22/18 05:35 0.0 K/mm3 (0.0-0.1) 11/22/18 05:35 0.0 K/mm3 11/22/18 05:35 0.0 K/mm3 11/22/18 05:35 0.0 K/mm3 11/22/18 05:35 Blast Cells # 0.0 K/mm3 11/22/18 05:35 WBC Morphology Not Reportable 11/22/18 05:35 Hypersegmented Neuts Not Reportable 11/22/18 05:35 Hyposegmented Neuts Not Reportable 11/22/18 05:35 Hypogranular Neuts Not Reportable 11/22/18 05:35 Not Reportable 11/22/18 05:35 Not Reportable 11/22/18 05:35 Not Reportable 11/22/18 05:35 Not Reportable 11/22/18 05:35 Not Reportable 11/22/18 05:35 Not Reportable 11/22/18 05:35 Consistent w auto 11/22/18 05:35 Not Reportable 11/22/18 05:35 Plt Clumps, EDTA Not Reportable 11/22/18 05:35 Not Reportable 11/22/18 05:35 Not Reportable 11/22/18 05:35 Not Reportable 11/22/18 05:35 Plt Morphology Comment Not Reportable 11/22/18 05:35 RBC Morphology Not Reportable 11/22/18 05:35 Dimorphic RBCs Not Reportable 11/22/18 05:35 Not Reportable 11/22/18 05:35 Not Reportable 11/22/18 05:35 1+ 11/22/18 05:35 1+ 11/22/18 05:35 Not Reportable 11/22/18 05:35 1+ 11/22/18 05:35 Not Reportable 11/22/18 05:35 Not Reportable 11/22/18 05:35 Not Reportable 11/22/18 05:35 Not Reportable 11/22/18 05:35 Not Reportable 11/22/18 05:35 Few 11/22/18 05:35 Not Reportable 11/22/18 05:35 Not Reportable 11/22/18 05:35 Not Reportable 11/22/18 05:35 Not Reportable 11/22/18 05:35 Not Reportable 11/22/18 05:35 Not Reportable 11/22/18 05:35 Few 11/22/18 05:35 Acanthocytes (Spur) Not Reportable 11/22/18 05:35 Rouleaux Not Reportable 11/22/18 05:35 Not Reportable 11/22/18 05:35 Not Reportable 11/22/18 05:35 Not Reportable 11/22/18 05:35 Not Reportable 11/22/18 05:35 Hem Pathologist Commnt No 11/22/18 05:35 PT 23.2 Sec. (12.2-14.9) H 11/19/18 Unknown INR 2.11 (0.87-1.13) H 11/19/18 Unknown APTT 28.5 Sec. (24.2-36.6) 11/15/18 18:41 POC ABG pH 7.530 (7.35-7.45) H 11/23/18 03:29 POC ABG pCO2 32.3 (35-45) L 11/23/18 03:29 POC ABG pO2 83 (80-105) 11/23/18 03:29 POC ABG HCO3 27.0 (22-26 mml/L) 11/23/18 03:29 POC ABG Total CO2 28 (23-27mmol/L) 11/23/18 03:29 POC ABG O2 Sat 97 11/23/18 03:29 POC ABG Base Excess 4 ((-2) - (+3)mmol/L) 11/23/18 03:29 30 % 11/23/18 03:29 Sodium 137 mmol/L (137-145) 11/23/18 04:22 Potassium 3.2 mmol/L (3.6-5.0) L 11/23/18 04:22 Chloride 95.4 mmol/L (98-107) L 11/23/18 04:22 Carbon Dioxide 27 mmol/L (22-30) 11/23/18 04:22 18 mmol/L 11/23/18 04:22 BUN 83 mg/dL (7-17) H 11/23/18 04:22 5.0 mg/dL (0.7-1.2) H 11/23/18 04:22 Estimated GFR 10 ml/min 11/23/18 04:22 17 % 11/23/18 04:22 Glucose 82 mg/dL (65-100) 11/23/18 04:22 POC Glucose 95 (70-105) 11/23/18 11:42 Lactic Acid 1.50 mmol/L (0.7-2.0) 11/21/18 13:25 Calcium 7.9 mg/dL (8.4-10.2) L 11/23/18 04:22 Phosphorus 5.90 mg/dL (2.5-4.5) H 11/21/18 05:55 Magnesium 2.30 mg/dL (1.7-2.3) 11/20/18 22:20 0.50 mg/dL (0.1-1.2) 11/20/18 Unknown AST 57 units/L (5-40) H 11/20/18 Unknown ALT 25 units/L (7-56) 11/20/18 Unknown 53 units/L (35-129) 11/20/18 Unknown 293 units/L (30-135) H 11/15/18 18:41 CK-MB (CK-2) 5.6 ng/mL (0.0-4.0) H 11/15/18 18:41 CK-MB (CK-2) Rel Index 1.9 (0-4) 11/15/18 18:41 3.550 ng/mL (0.00-0.029) H* 11/20/18 22:20 4.2 g/dL (6.3-8.2) L 11/20/18 Unknown 2.3 g/dL (3.9-5) L 11/20/18 Unknown 1.2 % 11/20/18 Unknown Triglycerides 107 mg/dL (2-149) 11/08/18 03:09 Cholesterol 176 mg/dL (50-199) 11/08/18 03:09 137 mg/dL (50-130) H 11/08/18 03:09 33 mg/dL (40-59) L 11/08/18 03:09 5.33 % 11/08/18 03:09 11 units/L (13-60) L 11/13/18 05:38 Yellow (Yellow) 11/16/18 09:26 Slightly-cloudy (Clear) 11/16/18 09:26 7.0 (5.0-7.0) 11/16/18 09:26 Ur Specific [place] 1.014 (1.003-1.030) 11/16/18 09:26 <15 mg/dl mg/dL (Negative) 11/16/18 09:26 Neg mg/dL (Negative) 11/16/18 09:26 Tr mg/dL (Negative) 11/16/18 09:26 Neg (Negative) 11/16/18 09:26 Neg (Negative) 11/16/18 09:26 Neg (Negative) 11/16/18 09:26 < 2.0 mg/dL (<2.0) 11/16/18 09:26 Ur Leukocyte Esterase Neg (Negative) 11/16/18 09:26 2.0 /HPF (0.0-6.0) 11/16/18 09:26 1.0 /HPF (0.0-6.0) 11/16/18 09:26 U Epithel Cells (Auto) < 1.0 /HPF (0-13.0) 11/16/18 09:26 2+ /HPF (Negative) 11/16/18 09:26 Few /HPF 11/16/18 09:26 102.6 mg/dL (0.1-20.0) H 11/16/18 09:26 103.3 mg/dL (0.1-20.0) H 11/16/18 09:26 Protein/Creatinin Ratio 0.27 11/16/18 09:26 28 mg/dL (5-11.8) H 11/16/18 09:26 Blood Type O POSITIVE 11/19/18 Unknown Antibody Screen Negative 11/19/18 Unknown Active Medications - Current Medications Current Medications: Generic Name Dose Route Start Last Admin Trade Name Freq PRN Reason Stop Dose Admin Albuterol 2.5 mg 11/09/18 08:00 11/20/18 22:07 Proventil IH 2.5 mg Q4HRT PRN Administration Shortness Of Breath Amiodarone HCl 200 mg 11/10/18 22:00 11/23/18 10:56 Cordarone PO 200 mg BID RADHA Administration Lipase/Protease/Amylase 1 each 11/23/18 11:[address] 10,500 Unit FEEDTUBE PRN PRN For Clogged Feeding Tube Aspirin 81 mg 11/09/18 10:00 11/23/18 10:56 Halfprin Ec PO 81 mg DAILY RADHA Administration Atorvastatin Calcium 40 mg 11/11/18 22:00 11/22/18 23:29 Lipitor PO 40 mg QHS RADHA Administration Bupropion HCl 150 mg 11/21/18 10:00 11/23/18 10:56 Wellbutrin PO 150 mg BID RADHA Administration Dextrose 50 ml 11/20/18 21:45 D50w (25gm) Syringe IV PRN PRN Hypoglycemia Furosemide 80 mg 11/23/18 18:00 Lasix IV Q8H RADHA Hydromorphone HCl 0.5 mg 11/19/18 11:21 Dilaudid IV Q3H PRN Pain , Severe (7-10) Hydrophilic Ointment 1 applic 11/20/18 20:27 Vaseline Lip Therapy TP Q2HR PRN Dry Lips Norepinephrine 4 mg in 250 mls @ 7.5 mls/hr 11/20/18 21:00 11/22/18 21:15 Levophed Drip 4 Mg/Ns 250 Ml IV 2 mcg/min TITR RADHA 7.5 mls/hr Titration Protocol 2 MCG/MIN Propofol 1,000 mg in 100 mls @ 3.648 mls/hr 11/20/18 21:00 11/23/18 17:12 Diprivan 10 Mg/Ml IV 2.5 mcg/kg/min TITR RADHA 1.824 mls/hr Administration Protocol 5 MCG/KG/MIN Dobutamine HCl/Dextrose 500 mg in 250 mls @ 9.12 mls/hr 11/21/18 11:00 11/23/18 17:10 Dobutrex Drip 500mg/D5w 250ml IV 2.5 mcg/kg/min DIRECT RADHA 9.12 mls/hr Administration Protocol 2.5 MCG/KG/MIN Furosemide 100 mg/ Sodium 60 mls @ 120 mls/hr 11/22/18 11:00 11/22/18 11:48 Chloride IV 120 mls/hr ONCE RADHA Administration Metoprolol Tartrate 2.5 mg 11/21/18 09:18 Lopressor IV Q6HR PRN Tachyarrhythmias Midazolam HCl 2 mg 11/20/18 20:27 11/21/18 04:08 Versed IV 2 mg Q10MIN PRN Administration Sedation Multi-Ingred Cream/Lotion/Oil/Oint 1 applic 11/20/18 20:27 Artificial Tears Ophth Oint OU Q4HR PRN Dry Eye(s) Ondansetron HCl 4 mg 11/11/18 13:44 11/18/18 17:51 Zofran IV 4 mg Q8H PRN Administration Nausea And Vomiting Pantoprazole Sodium 40 mg 11/21/18 10:00 11/23/18 10:56 Protonix IV 40 mg QDAY RADHA Administration Polyethylene Glycol 17 gm 11/09/18 10:00 Miralax 3350 PO BID PRN Constipation Sertraline HCl 50 mg 11/09/18 10:00 11/23/18 10:56 Zoloft PO 50 mg DAILY RADHA Administration Simethicone 80 mg 11/12/18 11:49 11/15/18 04:05 Mylicon PO 80 mg Q6H PRN Administration Gas pain Simple Syrup 15 ml 11/23/18 11:36 Simple Syrup FEEDTUBE PRN PRN Hypoglycemia Simple Syrup 30 ml 11/23/18 11:36 Simple Syrup FEEDTUBE PRN PRN Hypoglycemia Sodium Bicarbonate 325 mg 11/23/18 11:36 Sodium Bicarbonate FEEDTUBE PRN PRN For Clogged Feeding Tube Sucralfate 1 gm 11/12/18 16:30 11/23/18 16:18 Carafate PO 1 gm ACHS RADHA Administration Nutrition/Malnutrition Assess - Dietary Evaluation Nutrition/Malnutrition Findings: Nutrition Notes Start: 11/14/18 15:47 Freq: Status: Active Protocol: Document 11/21/18 15:53 RM (Rec: 11/21/18 15:59 RM [id number]) Nutrition Notes Initial or Follow up Reassessment Current Diagnosis Acute Kidney Injury,Coronary Artery Disease,Heart Failure Other Pertinent Diagnosis cardiac arrest Current Diet clear liquid Labs/Tests Reviewed Pertinent Medications Levophed, Zofran, Propofol at 3.5 ml/hr (92 kcal/day) Height 5 ft 7 in Weight 121.6 kg [place] Body Weight (kg) 61.36 BMI 42.0 Subjective/Other Information Consulted for evaluate nutritoinal intake. Pt coded and moved to ICU. Pt on vent. Burn Absent Trauma Absent #1 Nutrition Diagnosis Inadequate oral intake Diagnosis Progress(for reassessment Continues documentation) Is patient on ventilator? No Is Patient Ambulatory and/or Out of Bed No REE-([facility]-confined to bed) 2133.516 Kcal/Kg value to use for calculation 14 Approximate Energy Requirements Using 1702 kcal/Kg Calculation Used for Recommendations Kcal/kg Additional Notes Protein Needs: 153g (2.5g/kg IBW) Fluid Needs: 1 ml/kcal Nutrition Intervention Change Diet Order: TF consult Nutrition Support: Vital 1.2 at 60 ml/hr Water flush of 100 mls q 4 hrs Kcal 1,728 Carbohydrates (gm) 108 Fluid (mL) 1,168 Goal #1 TF consult Anticipated Discharge Needs: Unable to determine at this time Follow-Up By: 11/24/18 Additional Comments Follow for TF consult
[2018-11-23] MEDS: LASIX IV SCH (17:41)
[2018-11-24] MEDS: LASIX IV SCH ×3 (01:25→17:55)
--- NOTE | 2018-11-24 02:35 | XRay Report ---
CHEST - 1 VIEW INDICATION: follow up respiratory failure COMPARISON: Yesterday FINDINGS: Support devices: Stable support device positioning. Heart: Stable cardiomediastinal silhouette. Lungs/pleura: Stable mild edema. Additional findings: None. IMPRESSION: Unchanged exam. Signer Name: Syd Klein MD Signed: 11/24/2018 2:31 AM Workstation Name: [id number]
[2018-11-24 06:01] LABS: Calcium 7.9 mg/dL (8.4-10.2)
[2018-11-24] MEDS: CARAFATE PO SCH ×4 (08:10→21:43)
[2018-11-24] MEDS: PREVACID SOLUTAB FEEDTUBE SCH (10:39)
[2018-11-24] MEDS: HALFPRIN EC PO SCH (10:39)
[2018-11-24] MEDS: WELLBUTRIN PO SCH ×2 (10:39→21:42)
[2018-11-24] MEDS: ZOLOFT PO SCH (10:39)
[2018-11-24] MEDS: CORDARONE PO SCH ×2 (10:40→21:42)
--- NOTE | 2018-11-24 11:04 | Progress Note ---
Assessment and Plan 68 y/o female with known systolic heart failure, admitted post cardiac arrest, intubated, awake and alert. 1. Meeting Aunt and Patient in the am at bedside to discuss code status and possibility of trach and peg. In my profession opinion, if she refuses trach and peg, she should really consider DNR/DNI as she is a high risk for cardiac arrest given systolic heart failure. She may have central sleep apnea as well given her degree of heart failure but this could not be diagnosed in the house. 2. Will ask renal about the possibility of a lasix drip. Renal also considering HD as well. 3. Follow up any new cardiology recs 4. Continue PSV trials as tolerated 5. Given the fact that she may have invasive therapies procedures, will hold on anticoagulation for now. SCD's only. CCT 31 minutes. Subjective Date of service: 11/24/18 Principal diagnosis: blood in stool Interval history: Awake and alert. Following commands. Of pressors. Being fed. Family not present at bedside. Currently being changed. Objective Vital Signs - 12hr 11/23/18 11/23/18 11/24/18 23:00 23:30 00:00 Temperature 99.6 F Pulse Rate 75 76 67 Respiratory 14 14 14 Rate Blood Pressure 117/63 117/63 117/63 O2 Sat by Pulse 100 100 100 Oximetry 11/24/18 11/24/18 11/24/18 00:30 01:00 01:30 Temperature Pulse Rate 71 77 73 Respiratory 14 14 14 Rate Blood Pressure 113/61 113/69 112/56 O2 Sat by Pulse 99 100 100 Oximetry 11/24/18 11/24/18 11/24/18 02:00 02:30 03:00 Temperature Pulse Rate 76 95 H 87 Respiratory 15 14 14 Rate Blood Pressure 101/65 101/65 110/74 O2 Sat by Pulse 99 100 100 Oximetry 11/24/18 11/24/18 11/24/18 03:30 04:00 04:06 Temperature 99.1 F Pulse Rate 71 73 91 H Respiratory 14 14 Rate Blood Pressure 112/58 113/60 113/60 O2 Sat by Pulse 98 99 98 Oximetry 11/24/18 11/24/18 11/24/18 04:30 05:00 05:30 Temperature Pulse Rate 74 77 81 Respiratory 14 14 14 Rate Blood Pressure 128/60 115/60 120/61 O2 Sat by Pulse 100 99 100 Oximetry 11/24/18 11/24/18 11/24/18 06:00 06:30 07:00 Temperature Pulse Rate 68 74 82 Respiratory 14 14 16 Rate Blood Pressure 123/61 130/58 138/78 O2 Sat by Pulse 100 99 100 Oximetry 11/24/18 11/24/18 11/24/18 07:30 08:00 08:30 Temperature 97.1 F L Pulse Rate 75 69 78 Respiratory 14 13 14 Rate Blood Pressure 127/63 115/61 127/58 O2 Sat by Pulse 100 100 100 Oximetry 11/24/18 11/24/18 08:47 08:51 Temperature Pulse Rate 87 86 Respiratory 11 L Rate Blood Pressure 127/58 127/58 O2 Sat by Pulse 100 99 Oximetry Constitutional: no acute distress, alert, other (obese) Eyes: non-icteric ENT: oropharynx moist Neck: supple Effort: normal Ascultation: Bilateral: clear (anteriorly, decreased due to obesity) Percussion: Bilateral: not dull Cardiovascular: regular rate and rhythm (no mrg) Gastrointestinal: normoactive bowel sounds, soft, non-tender, non-distended Integumentary: normal Extremities: pink and warm, edema (2+ bilateral LE edema) Neurologic: normal mental status, non-focal exam, pupils equal and round, CN II- XII normal Psychiatric: mood appropriate, affect normal CBC and BMP: 11/22/18 05:35 11/24/18 Unknown ABG, PT/INR, D-dimer: ABG POC ABG pH 7.492 (7.35-7.45) H 11/24/18 04:19 POC ABG pCO2 35.4 (35-45) 11/24/18 04:19 POC ABG pO2 90 (80-105) 11/24/18 04:19 POC ABG HCO3 27.1 (22-26 mml/L) 11/24/18 04:19 POC ABG Total CO2 28 (23-27mmol/L) 11/24/18 04:19 POC ABG O2 Sat 98 11/24/18 04:19 PT/INR, D-dimer PT 23.2 Sec. (12.2-14.9) H 11/19/18 Unknown INR 2.11 (0.87-1.13) H 11/19/18 Unknown Abnormal lab findings: Abnormal Labs 11/08/18 11/08/18 11/08/18 03:09 03:09 05:50 WBC RBC 3.37 L MCV 106 H MCH 34 H RDW 17.1 H Lymph % (Auto) 4.6 L [place] % (Auto) 11.5 H Lymph # 0.2 L Seg Neutrophils % 83.0 H Seg Neuts % (Manual) Lymphocytes % (Manual) Monocytes % (Manual) Nucleated RBC % Seg Neutrophils # Man Lymphocytes # (Manual) Monocytes # (Manual) PT INR POC ABG pH POC ABG pCO2 POC ABG pO2 Sodium 135 L Potassium Chloride Carbon Dioxide BUN 29 H Creatinine 1.4 H Glucose POC Glucose Lactic Acid Calcium 8.1 L Phosphorus AST Total Creatine Kinase CK-MB (CK-2) Troponin T 0.042 H 0.039 H Total Protein Albumin LDL Cholesterol Direct 137 H HDL Cholesterol 33 L Lipase Urine Creatinine Urine Total Protein 11/10/18 11/10/18 11/10/18 05:47 07:32 13:08 WBC RBC MCV MCH RDW Lymph % (Auto) [place] % (Auto) Lymph # Seg Neutrophils % Seg Neuts % (Manual) Lymphocytes % (Manual) Monocytes % (Manual) Nucleated RBC % Seg Neutrophils # Man Lymphocytes # (Manual) Monocytes # (Manual) PT INR POC ABG pH POC ABG pCO2 POC ABG pO2 Sodium Potassium Chloride Carbon Dioxide 32 H BUN 25 H Creatinine Glucose 104 H POC Glucose 115 H 142 H Lactic Acid Calcium 7.9 L Phosphorus AST Total Creatine Kinase CK-MB (CK-2) Troponin T Total Protein Albumin LDL Cholesterol Direct HDL Cholesterol Lipase Urine Creatinine Urine Total Protein 11/10/18 11/10/18 11/11/18 16:55 21:21 07:51 WBC RBC MCV MCH RDW Lymph % (Auto) [place] % (Auto) Lymph # Seg Neutrophils % Seg Neuts % (Manual) Lymphocytes % (Manual) Monocytes % (Manual) Nucleated RBC % Seg Neutrophils # Man Lymphocytes # (Manual) Monocytes # (Manual) PT INR POC ABG pH POC ABG pCO2 POC ABG pO2 Sodium Potassium Chloride Carbon Dioxide BUN Creatinine Glucose POC Glucose 125 H 126 H 118 H Lactic Acid Calcium Phosphorus AST Total Creatine Kinase CK-MB (CK-2) Troponin T Total Protein Albumin LDL Cholesterol Direct HDL Cholesterol Lipase Urine Creatinine Urine Total Protein 07/30/19 07/30/19 07/31/19 12:25 21:32 07:46 WBC RBC MCV MCH RDW Lymph % (Auto) [place] % (Auto) Lymph # Seg Neutrophils % Seg Neuts % (Manual) Lymphocytes % (Manual) Monocytes % (Manual) Nucleated RBC % Seg Neutrophils # Man Lymphocytes # (Manual) Monocytes # (Manual) PT INR POC ABG pH POC ABG pCO2 POC ABG pO2 Sodium Potassium Chloride 97.7 L Carbon Dioxide BUN 28 H Creatinine Glucose POC Glucose 125 H 126 H Lactic Acid Calcium 8.0 L Phosphorus AST Total Creatine Kinase CK-MB (CK-2) Troponin T Total Protein Albumin LDL Cholesterol Direct HDL Cholesterol Lipase Urine Creatinine Urine Total Protein 11/12/18 11/12/18 11/13/18 08:57 11:35 05:38 WBC RBC MCV MCH RDW Lymph % (Auto) [place] % (Auto) Lymph # Seg Neutrophils % Seg Neuts % (Manual) Lymphocytes % (Manual) Monocytes % (Manual) Nucleated RBC % Seg Neutrophils # Man Lymphocytes # (Manual) Monocytes # (Manual) PT INR POC ABG pH POC ABG pCO2 POC ABG pO2 Sodium Potassium Chloride 97.3 L Carbon Dioxide 31 H BUN 33 H Creatinine 1.5 H Glucose 111 H POC Glucose 120 H 137 H Lactic Acid Calcium 7.8 L Phosphorus AST Total Creatine Kinase CK-MB (CK-2) Troponin T Total Protein Albumin LDL Cholesterol Direct HDL Cholesterol Lipase Urine Creatinine Urine Total Protein 11/13/18 11/14/18 11/15/18 05:38 06:07 06:11 WBC RBC MCV MCH RDW Lymph % (Auto) [place] % (Auto) Lymph # Seg Neutrophils % Seg Neuts % (Manual) Lymphocytes % (Manual) Monocytes % (Manual) Nucleated RBC % Seg Neutrophils # Man Lymphocytes # (Manual) Monocytes # (Manual) PT INR POC ABG pH POC ABG pCO2 POC ABG pO2 Sodium 135 L Potassium Chloride 96.8 L Carbon Dioxide BUN 36 H Creatinine 1.9 H Glucose 117 H POC Glucose 128 H Lactic Acid Calcium 8.2 L Phosphorus AST Total Creatine Kinase CK-MB (CK-2) Troponin T Total Protein Albumin LDL Cholesterol Direct HDL Cholesterol Lipase 11 L Urine Creatinine Urine Total Protein 11/15/18 11/15/18 11/15/18 08:50 18:41 18:41 WBC RBC 3.51 L MCV 103 H MCH 34 H RDW 17.4 H Lymph % (Auto) 3.3 L [place] % (Auto) 9.2 H Lymph # 0.2 L Seg Neutrophils % 87.2 H Seg Neuts % (Manual) Lymphocytes % (Manual) Monocytes % (Manual) Nucleated RBC % Seg Neutrophils # Man Lymphocytes # (Manual) Monocytes # (Manual) PT INR POC ABG pH 7.533 H POC ABG pCO2 33.9 L POC ABG pO2 237 H Sodium 136 L Potassium Chloride 95.3 L Carbon Dioxide BUN 46 H Creatinine 2.3 H Glucose POC Glucose Lactic Acid Calcium 8.3 L Phosphorus AST Total Creatine Kinase CK-MB (CK-2) Troponin T Total Protein 4.6 L Albumin 1.8 L LDL Cholesterol Direct HDL Cholesterol Lipase Urine Creatinine Urine Total Protein 11/15/18 11/15/18 11/16/18 18:41 18:41 03:53 WBC RBC MCV MCH RDW Lymph % (Auto) [place] % (Auto) Lymph # Seg Neutrophils % Seg Neuts % (Manual) Lymphocytes % (Manual) Monocytes % (Manual) Nucleated RBC % Seg Neutrophils # Man Lymphocytes # (Manual) Monocytes # (Manual) PT 18.6 H INR 1.59 H POC ABG pH 7.507 H POC ABG pCO2 34.9 L POC ABG pO2 133 H Sodium Potassium Chloride Carbon Dioxide BUN Creatinine Glucose POC Glucose Lactic Acid Calcium Phosphorus AST Total Creatine Kinase 293 H CK-MB (CK-2) 5.6 H Troponin T 2.830 H* Total Protein Albumin LDL Cholesterol Direct HDL Cholesterol Lipase Urine Creatinine Urine Total Protein 11/16/18 11/16/18 11/16/18 05:35 05:35 09:26 WBC RBC 3.44 L MCV 103 H MCH 34 H RDW 17.3 H Lymph % (Auto) 2.5 L [place] % (Auto) 9.3 H Lymph # 0.2 L Seg Neutrophils % 87.9 H Seg Neuts % (Manual) Lymphocytes % (Manual) Monocytes % (Manual) Nucleated RBC % Seg Neutrophils # Man Lymphocytes # (Manual) Monocytes # (Manual) PT INR POC ABG pH POC ABG pCO2 POC ABG pO2 Sodium 135 L Potassium Chloride 95.9 L Carbon Dioxide BUN 47 H Creatinine 2.2 H Glucose POC Glucose Lactic Acid Calcium 8.1 L Phosphorus 4.60 H AST Total Creatine Kinase CK-MB (CK-2) Troponin T Total Protein Albumin LDL Cholesterol Direct HDL Cholesterol Lipase Urine Creatinine 103.3 H Urine Total Protein 11/16/18 11/17/18 11/18/18 09:26 10:42 04:45 WBC RBC 3.41 L 3.50 L MCV 104 H 104 H MCH 34 H 34 H RDW 17.4 H 17.7 H Lymph % (Auto) 4.1 L 4.9 L [place] % (Auto) 9.8 H 7.6 H Lymph # 0.2 L 0.3 L Seg Neutrophils % 85.8 H 87.1 H Seg Neuts % (Manual) Lymphocytes % (Manual) Monocytes % (Manual) Nucleated RBC % Seg Neutrophils # Man Lymphocytes # (Manual) Monocytes # (Manual) PT INR POC ABG pH POC ABG pCO2 POC ABG pO2 Sodium Potassium Chloride Carbon Dioxide BUN Creatinine Glucose POC Glucose Lactic Acid Calcium Phosphorus AST Total Creatine Kinase CK-MB (CK-2) Troponin T Total Protein Albumin LDL Cholesterol Direct HDL Cholesterol Lipase Urine Creatinine 102.6 H Urine Total Protein 28 H 11/18/18 11/19/18 11/19/18 04:45 06:48 06:48 WBC RBC 3.63 L MCV 105 H MCH 35 H RDW 17.2 H Lymph % (Auto) 4.0 L [place] % (Auto) Lymph # 0.3 L Seg Neutrophils % 89.3 H Seg Neuts % (Manual) Lymphocytes % (Manual) Monocytes % (Manual) Nucleated RBC % Seg Neutrophils # Man Lymphocytes # (Manual) Monocytes # (Manual) PT INR POC ABG pH POC ABG pCO2 POC ABG pO2 Sodium 135 L Potassium 3.5 L Chloride 95.9 L 95.4 L Carbon Dioxide BUN 58 H 64 H Creatinine 2.7 H 3.3 H Glucose 137 H 102 H POC Glucose Lactic Acid Calcium 7.7 L 8.0 L Phosphorus 5.00 H 6.10 H D AST Total Creatine Kinase CK-MB (CK-2) Troponin T Total Protein Albumin LDL Cholesterol Direct HDL Cholesterol Lipase Urine Creatinine Urine Total Protein 11/19/18 11/20/18 11/20/18 Unknown 01:15 04:30 WBC RBC 3.37 L MCV 105 H MCH 34 H RDW 17.5 H Lymph % (Auto) [place] % (Auto) Lymph # Seg Neutrophils % Seg Neuts % (Manual) 93.0 H Lymphocytes % (Manual) 3.0 L Monocytes % (Manual) Nucleated RBC % 1.0 H Seg Neutrophils # Man 8.1 H Lymphocytes # (Manual) 0.3 L Monocytes # (Manual) PT 23.2 H INR 2.11 H POC ABG pH POC ABG pCO2 POC ABG pO2 Sodium Potassium Chloride Carbon Dioxide BUN Creatinine Glucose POC Glucose Lactic Acid 4.30 H* Calcium Phosphorus AST Total Creatine Kinase CK-MB (CK-2) Troponin T Total Protein Albumin LDL Cholesterol Direct HDL Cholesterol Lipase Urine Creatinine Urine Total Protein 11/20/18 11/20/18 11/20/18 04:30 19:25 21:33 WBC RBC MCV MCH RDW Lymph % (Auto) [place] % (Auto) Lymph # Seg Neutrophils % Seg Neuts % (Manual) Lymphocytes % (Manual) Monocytes % (Manual) Nucleated RBC % Seg Neutrophils # Man Lymphocytes # (Manual) Monocytes # (Manual) PT INR POC ABG pH 7.228 L POC ABG pCO2 30.5 L POC ABG pO2 160 H Sodium 136 L Potassium Chloride 95.5 L Carbon Dioxide BUN 72 H Creatinine 3.6 H Glucose POC Glucose 106 H Lactic Acid Calcium 8.1 L Phosphorus 6.60 H AST Total Creatine Kinase CK-MB (CK-2) Troponin T Total Protein Albumin LDL Cholesterol Direct HDL Cholesterol Lipase Urine Creatinine Urine Total Protein 11/20/18 11/20/18 11/20/18 21:50 22:11 22:20 WBC RBC MCV MCH RDW Lymph % (Auto) [place] % (Auto) Lymph # Seg Neutrophils % Seg Neuts % (Manual) Lymphocytes % (Manual) Monocytes % (Manual) Nucleated RBC % Seg Neutrophils # Man Lymphocytes # (Manual) Monocytes # (Manual) PT INR POC ABG pH POC ABG pCO2 POC ABG pO2 Sodium Potassium Chloride Carbon Dioxide BUN Creatinine Glucose POC Glucose 64 L 110 H Lactic Acid 8.40 H* Calcium Phosphorus AST Total Creatine Kinase CK-MB (CK-2) Troponin T Total Protein Albumin LDL Cholesterol Direct HDL Cholesterol Lipase Urine Creatinine Urine Total Protein 11/20/18 11/20/18 11/21/18 22:20 Unknown 04:52 WBC RBC MCV MCH RDW Lymph % (Auto) [place] % (Auto) Lymph # Seg Neutrophils % Seg Neuts % (Manual) Lymphocytes % (Manual) Monocytes % (Manual) Nucleated RBC % Seg Neutrophils # Man Lymphocytes # (Manual) Monocytes # (Manual) PT INR POC ABG pH 7.643 H POC ABG pCO2 POC ABG pO2 161 H Sodium 134 L Potassium 5.5 H D Chloride 93.4 L Carbon Dioxide 17 L D BUN 72 H Creatinine 4.2 H Glucose POC Glucose Lactic Acid Calcium 8.0 L Phosphorus AST 57 H Total Creatine Kinase CK-MB (CK-2) Troponin T 3.550 H* Total Protein 4.2 L Albumin 2.3 L LDL Cholesterol Direct HDL Cholesterol Lipase Urine Creatinine Urine Total Protein 11/21/18 11/21/18 11/21/18 05:55 05:55 05:55 WBC 12.2 H RBC MCV 103 H MCH 34 H RDW 16.9 H Lymph % (Auto) [place] % (Auto) Lymph # Seg Neutrophils % Seg Neuts % (Manual) 96.0 H Lymphocytes % (Manual) 2.0 L Monocytes % (Manual) Nucleated RBC % Seg Neutrophils # Man 11.7 H Lymphocytes # (Manual) 0.2 L Monocytes # (Manual) PT INR POC ABG pH POC ABG pCO2 POC ABG pO2 Sodium 136 L Potassium Chloride 94.2 L Carbon Dioxide BUN 76 H Creatinine 4.3 H Glucose 134 H POC Glucose Lactic Acid 2.70 H* Calcium 7.9 L Phosphorus 5.90 H AST Total Creatine Kinase CK-MB (CK-2) Troponin T Total Protein Albumin LDL Cholesterol Direct HDL Cholesterol Lipase Urine Creatinine Urine Total Protein 11/21/18 11/21/18 11/21/18 06:00 06:14 07:53 WBC RBC MCV MCH RDW Lymph % (Auto) [place] % (Auto) Lymph # Seg Neutrophils % Seg Neuts % (Manual) Lymphocytes % (Manual) Monocytes % (Manual) Nucleated RBC % Seg Neutrophils # Man Lymphocytes # (Manual) Monocytes # (Manual) PT INR POC ABG pH 7.516 H POC ABG pCO2 30.4 L POC ABG pO2 118 H Sodium Potassium Chloride Carbon Dioxide BUN Creatinine Glucose POC Glucose 154 H Lactic Acid 2.50 H* Calcium Phosphorus AST Total Creatine Kinase CK-MB (CK-2) Troponin T Total Protein Albumin LDL Cholesterol Direct HDL Cholesterol Lipase Urine Creatinine Urine Total Protein 11/21/18 11/21/18 11/22/18 13:08 23:58 05:07 WBC RBC MCV MCH RDW Lymph % (Auto) [place] % (Auto) Lymph # Seg Neutrophils % Seg Neuts % (Manual) Lymphocytes % (Manual) Monocytes % (Manual) Nucleated RBC % Seg Neutrophils # Man Lymphocytes # (Manual) Monocytes # (Manual) PT INR POC ABG pH 7.452 H POC ABG pCO2 POC ABG pO2 79 L Sodium Potassium Chloride Carbon Dioxide BUN Creatinine Glucose POC Glucose 115 H 121 H Lactic Acid Calcium Phosphorus AST Total Creatine Kinase CK-MB (CK-2) Troponin T Total Protein Albumin LDL Cholesterol Direct HDL Cholesterol Lipase Urine Creatinine Urine Total Protein 11/22/18 11/22/18 11/22/18 05:35 05:35 05:44 WBC RBC 3.00 L MCV 102 H MCH 34 H RDW 17.2 H Lymph % (Auto) [place] % (Auto) Lymph # Seg Neutrophils % Seg Neuts % (Manual) 89.0 H Lymphocytes % (Manual) 2.0 L Monocytes % (Manual) 8.0 H Nucleated RBC % Seg Neutrophils # Man 9.7 H Lymphocytes # (Manual) 0.2 L Monocytes # (Manual) 0.9 H PT INR POC ABG pH POC ABG pCO2 POC ABG pO2 Sodium 136 L Potassium 3.5 L Chloride 97.0 L Carbon Dioxide BUN 78 H Creatinine 4.3 H Glucose 159 H POC Glucose 119 H Lactic Acid Calcium 7.3 L Phosphorus AST Total Creatine Kinase CK-MB (CK-2) Troponin T Total Protein Albumin LDL Cholesterol Direct HDL Cholesterol Lipase Urine Creatinine Urine Total Protein 11/23/18 11/23/18 11/24/18 03:29 04:22 04:19 WBC RBC MCV MCH RDW Lymph % (Auto) [place] % (Auto) Lymph # Seg Neutrophils % Seg Neuts % (Manual) Lymphocytes % (Manual) Monocytes % (Manual) Nucleated RBC % Seg Neutrophils # Man Lymphocytes # (Manual) Monocytes # (Manual) PT INR POC ABG pH 7.530 H 7.492 H POC ABG pCO2 32.3 L POC ABG pO2 Sodium Potassium 3.2 L Chloride 95.4 L Carbon Dioxide BUN 83 H Creatinine 5.0 H Glucose POC Glucose Lactic Acid Calcium 7.9 L Phosphorus AST Total Creatine Kinase CK-MB (CK-2) Troponin T Total Protein Albumin LDL Cholesterol Direct HDL Cholesterol Lipase Urine Creatinine Urine Total Protein 11/24/18 Unknown WBC RBC MCV MCH RDW Lymph % (Auto) [place] % (Auto) Lymph # Seg Neutrophils % Seg Neuts % (Manual) Lymphocytes % (Manual) Monocytes % (Manual) Nucleated RBC % Seg Neutrophils # Man Lymphocytes # (Manual) Monocytes # (Manual) PT INR POC ABG pH POC ABG pCO2 POC ABG pO2 Sodium Potassium 3.1 L Chloride 95.3 L Carbon Dioxide BUN 86 H Creatinine 5.2 H Glucose POC Glucose Lactic Acid Calcium 7.9 L Phosphorus AST Total Creatine Kinase CK-MB (CK-2) Troponin T Total Protein Albumin LDL Cholesterol Direct HDL Cholesterol Lipase Urine Creatinine Urine Total Protein
--- NOTE | 2018-11-24 11:49 | Progress Note ---
Assessment and Plan Acute renal failure likely ischemic due to cardiac arrest Hypoxic respiratory failure on mechanical ventilation Acute on Chronic systolic heart failure with EF of 10-15 % Paroxysmal atrial fibrillation Hypokalemia - Renal function reviewed. Serum creatinine 5.2 today, yesterday's level was 5.0, has good UOP of 1375 ml - Reordered-24 hour urine collection as it was not completed - CXR [id number] mild edema. - On Lasix 80 mg IV every 8 hours - Hypokalemia-KCL 40 meq po x 1 - No proteinruia, renal US negative for obstruction - Renally dose medications - Strict I&O monitoring - Obtain daily weights - Continue to monitor renal function - May need HD if no improvement in renal function - Continue to monitor closely Subjective Date of service: 11/24/18 Principal diagnosis: blood in stool Interval history: Patient seen lying in bed. Intubated. No family at bedside. Objective - Vital Signs Vital signs: Vital Signs - 12hr 11/24/18 11/24/18 11/24/18 00:00 00:30 01:00 Temperature 99.6 F Pulse Rate 67 71 77 Respiratory 14 14 14 Rate Blood Pressure 117/63 113/61 113/69 O2 Sat by Pulse 100 99 100 Oximetry 11/24/18 11/24/18 11/24/18 01:30 02:00 02:30 Temperature Pulse Rate 73 76 95 H Respiratory 14 15 14 Rate Blood Pressure 112/56 101/65 101/65 O2 Sat by Pulse 100 99 100 Oximetry 11/24/18 11/24/18 11/24/18 03:00 03:30 04:00 Temperature 99.1 F Pulse Rate 87 71 73 Respiratory 14 14 14 Rate Blood Pressure 110/74 112/58 113/60 O2 Sat by Pulse 100 98 99 Oximetry 11/24/18 11/24/18 11/24/18 04:06 04:30 05:00 Temperature Pulse Rate 91 H 74 77 Respiratory 14 14 Rate Blood Pressure 113/60 128/60 115/60 O2 Sat by Pulse 98 100 99 Oximetry 11/24/18 11/24/18 11/24/18 05:30 06:00 06:30 Temperature Pulse Rate 81 68 74 Respiratory 14 14 14 Rate Blood Pressure 120/61 123/61 130/58 O2 Sat by Pulse 100 100 99 Oximetry 11/24/18 11/24/18 11/24/18 07:00 07:30 08:00 Temperature 97.1 F L Pulse Rate 82 75 69 Respiratory 16 14 13 Rate Blood Pressure 138/78 127/63 115/61 O2 Sat by Pulse 100 100 100 Oximetry 11/24/18 11/24/18 11/24/18 08:30 08:47 08:51 Temperature Pulse Rate 78 87 86 Respiratory 14 11 L Rate Blood Pressure 127/58 127/58 127/58 O2 Sat by Pulse 100 100 99 Oximetry 11/24/18 11/24/18 11/24/18 09:00 09:30 10:00 Temperature Pulse Rate 86 80 91 H Respiratory 15 15 17 Rate Blood Pressure 122/64 120/68 136/64 O2 Sat by Pulse 99 100 99 Oximetry 11/24/18 11/24/18 11/24/18 10:30 11:00 11:30 Temperature Pulse Rate 96 H 97 H 96 H Respiratory 16 11 L 13 Rate Blood Pressure 135/64 135/64 111/66 O2 Sat by Pulse 99 100 99 Oximetry - General Appearance General appearance: intubated EENT: ATNC Neck: no JVD, supple Respiratory: Present: Decreased Breath Sounds Cardiology: S1S2 Gastrointestinal: normoactive bowel sounds Integumentary: warm and dry Neurologic: alert and oriented x3 Musculoskeletal: joint swelling - Lab 11/22/18 05:35 11/24/18 Unknown Most recent lab results Calcium 7.9 mg/dL (8.4-10.2) L 11/24/18 Unknown Phosphorus 5.90 mg/dL (2.5-4.5) H 11/21/18 05:55 Magnesium 2.30 mg/dL (1.7-2.3) 11/20/18 22:20 102.6 mg/dL (0.1-20.0) H 11/16/18 09:26 103.3 mg/dL (0.1-20.0) H 11/16/18 09:26 28 mg/dL (5-11.8) H 11/16/18 09:26 Medications & Allergies - Medications Allergies/Adverse Reactions: Allergies lisinopril Allergy (Verified 02/24/18 09:15) Anaphylaxis Penicillins Allergy (Verified 02/24/18 09:15) Seizure Sulfa (Sulfonamide Antibiotics) Adverse Reaction (Verified 02/24/18 09:15) Hives Home Medications: Home Medications Medication Instructions Recorded Confirmed Last Taken Type Aspirin [Adult Aspirin] 81 mg PO DAILY 02/24/18 11/08/18 05/09/18 History Spironolactone [Aldactone] 25 mg PO QDAY 02/24/18 11/08/18 05/09/18 History buPROPion SR [Wellbutrin SR] 150 mg PO BID 02/24/18 11/08/18 05/09/18 History Albuterol Sulfate [Ventolin HFA] 1 puff IH Q6H PRN 30 Days 03/03/18 11/08/18 05/09/18 Rx [email or web address] Cyclobenzaprine [Flexeril 10 MG 10 mg PO TID PRN 05/10/18 11/08/18 05/09/18 History TAB] Diphenhydramine HCl [Allergy 25 mg PO DAILY 05/10/18 11/08/18 05/09/18 History Relief] ISOSORBIDE MONOnitrate [Imdur ER] 60 mg PO QDAY 05/10/18 11/08/18 05/09/18 History Sertraline HCl [Zoloft] 50 mg PO DAILY 05/10/18 11/08/18 05/09/18 History hydrALAZINE [Apresoline TAB] 25 mg PO Q8HR 05/10/18 11/08/18 05/09/18 History Apixaban [Eliquis] 5 mg PO Q12HR #60 tablet 07/02/18 11/08/18 Unknown Rx Pantoprazole [Protonix TAB] 40 mg PO QDAY #30 tablet 07/02/18 11/08/18 Unknown R x Polyethylene Glycol 3350 [Miralax 17 gm PO BID PRN #30 powd.pack 07/02/18 11/08/18 Unknown Rx 3350] Carvedilol [Coreg] 3.125 mg PO BID #60 tablet 09/10/18 11/08/18 Unknown Rx Magnesium Oxide [Mag-Ox] 400 mg PO QDAY #7 tablet 10/04/18 11/08/18 Unknown Rx Potassium Chloride [K-Dur] 20 meq PO QDAY #7 tablet 10/04/18 11/08/18 Unknown Rx Torsemide [Demadex] 40 mg PO BID #60 tablet 10/04/18 11/08/18 Unknown Rx metOLazone [Zaroxolyn] 5 mg PO QDAY #30 tablet 10/04/18 11/08/18 Unknown Rx Active Medications: Generic Name Dose Route Start Last Admin Trade Name Margaux PRN Reason Stop Dose Admin Albuterol 2.5 mg 11/09/18 08:00 11/20/18 22:07 Proventil IH 2.5 mg Q4HRT PRN Administration Shortness Of Breath Amiodarone HCl 200 mg 11/10/18 22:00 11/24/18 10:40 Cordarone PO 200 mg BID RADHA Administration Lipase/Protease/Amylase 1 each 11/23/18 11:[address] 10,500 Unit FEEDTUBE PRN PRN For Clogged Feeding Tube Aspirin 81 mg 11/09/18 10:00 11/24/18 10:39 Halfprin Ec PO 81 mg DAILY RADHA Administration Atorvastatin Calcium 40 mg 11/11/18 22:00 11/23/18 22:45 Lipitor PO 40 mg QHS RADHA Administration Bupropion HCl 150 mg 11/21/18 10:00 11/24/18 10:39 Wellbutrin PO 150 mg BID RADHA Administration Dextrose 50 ml 11/20/18 21:45 D50w (25gm) Syringe IV PRN PRN Hypoglycemia Furosemide 80 mg 11/23/18 18:00 11/24/18 10:38 Lasix IV 80 mg Q8H RADHA Administration Hydromorphone HCl 0.5 mg 11/19/18 11:21 Dilaudid IV Q3H PRN Pain , Severe (7-10) Hydrophilic Ointment 1 applic 11/20/18 20:27 Vaseline Lip Therapy TP Q2HR PRN Dry Lips Norepinephrine 4 mg in 250 mls @ 7.5 mls/hr 11/20/18 21:00 11/22/18 21:15 Levophed Drip 4 Mg/Ns 250 Ml IV 2 mcg/min TITR RADHA 7.5 mls/hr Titration Protocol 2 MCG/MIN Propofol 1,000 mg in 100 mls @ 3.648 mls/hr 11/20/18 21:00 11/23/18 17:12 Diprivan 10 Mg/Ml IV 2.5 mcg/kg/min TITR RADHA 1.824 mls/hr Administration Protocol 5 MCG/KG/MIN Dobutamine HCl/Dextrose 500 mg in 250 mls @ 9.12 mls/hr 11/21/18 11:00 11/23/18 17:10 Dobutrex Drip 500mg/D5w 250ml IV 2.5 mcg/kg/min DIRECT RADHA 9.12 mls/hr Administration Protocol 2.5 MCG/KG/MIN Lansoprazole 30 mg 11/24/18 10:00 11/24/18 10:39 Prevacid Solutab FEEDTUBE 30 mg QDAY RADHA Administration Metoprolol Tartrate 2.5 mg 11/21/18 09:18 Lopressor IV Q6HR PRN Tachyarrhythmias Midazolam HCl 2 mg 11/20/18 20:27 11/21/18 04:08 Versed IV 2 mg Q10MIN PRN Administration Sedation Multi-Ingred Cream/Lotion/Oil/Oint 1 applic 11/20/18 20:27 Artificial Tears Ophth Oint OU Q4HR PRN Dry Eye(s) Ondansetron HCl 4 mg 11/11/18 13:44 11/18/18 17:51 Zofran IV 4 mg Q8H PRN Administration Nausea And Vomiting Polyethylene Glycol 17 gm 11/09/18 10:00 Miralax 3350 PO BID PRN Constipation Potassium Chloride 40 meq 11/24/18 12:00 11/24/18 11:21 Potassium Chloride FEEDTUBE 11/24/18 12:01 40 meq ONCE ONE Administration Sertraline HCl 50 mg 11/09/18 10:00 11/24/18 10:39 Zoloft PO 50 mg DAILY RADHA Administration Simethicone 80 mg 11/12/18 11:49 11/15/18 04:05 Mylicon PO 80 mg Q6H PRN Administration Gas pain Simple Syrup 15 ml 11/23/18 11:36 Simple Syrup FEEDTUBE PRN PRN Hypoglycemia Simple Syrup 30 ml 11/23/18 11:36 Simple Syrup FEEDTUBE PRN PRN Hypoglycemia Sodium Bicarbonate 325 mg 11/23/18 11:36 Sodium Bicarbonate FEEDTUBE PRN PRN For Clogged Feeding Tube Sucralfate 1 gm 11/12/18 16:30 11/24/18 11:21 Carafate PO 1 gm ACHS RADHA Administration
[2018-11-24] MEDS ORDERED: POTASSIUM CHLORIDE FEEDTUBE ONE (12:00)
--- NOTE | 2018-11-24 12:13 | Progress Note ---
Assessment and Plan Assessment and plan: Patient is a 68 year old -[place] female who was initially admitted for acute on chronic systolic heart failure. She was managed with IV milrinone drip and IV bumex by cardiology. The drip was discontinued on 11/13 while the IV Bumex was changed to oral on 11/14. Early this morning, she coded and was successfully resuscitated and transferred to the ICU S/p cardiac arrest x2 -Successfully resuscitated -patient arrested again on 11/20 Acute on chronic respiratory failure with hypoxia on MV > 96 hours extubated on 11/16, care per pulmonology reintubated on 11/20 after second cardiac arrest, cont MV, mgt per pulmonology cardiogenic Shock on pressors, on dobutamine drip, Acute on Chronic systolic heart failure with EF of 10-15 % mgt per cardiology, on dobutamine drip, and diuretics as tolerated ACUTE GI BLEED Most likely due to ischemic colitis from cardiac arrest, patient is too unstable for any intervention at this time, hemoglobin stable Paroxysmal atrial fibrillation -Rate currently controlled, meds per cardiology -eliquis now on hold given gi bleed Hx of LUE DVT -eliquis on hold due to gi bleed Hx of coronary artery disease -cardiac cath 03/2018 revealed patent SVG to LAD, patent SVG to OM, patent SVG to PDA and patent diagonal stent, LVEF 10-15%. -Continue medical management KERWIN, likely vasomotor nephropathy, ATN and/diuretic use Management as per nephrology, worsening, may need HD if does not improve COPD, chronic and stable Tobacco abuse -Patient counseled on cessation > 11 minutes Morbid obesity with BMI of 42.9 -Lifestyle modification recommended -preventative health counseling >17 minutes Prognosis is very poor. Cardiac arrest 2 and multiorgan failure, family meeting scheduled for Saturday, Dr Tucker will run the meeting Critical care time 35 minutes History Interval history: The patient is intubated and sedated, requiring pressors and dobutamine drip, patient also still having bloody bowel movement Hospitalist Physical - Physical exam Narrative exam: General.: Intubated and sedated . appears chronically ill HEENT: Moist mucous membranes, extraocular muscles intact, no lymphadenopathy Neck: supple Cardiac: S1-S2 heard Lungs: Bibasilar Rales Abdomen: soft , nontender, nondistended, bowel sounds positive Extremities: no edema clubbing or cyanosis Skin: no rash or lesions Neurologic: no gross focal deficits Psych: calm, and cooperative - Constitutional Vitals: Temp Pulse Resp BP Pulse Ox 97.1 F L 106 H 17 102/60 100 11/24/18 08:00 11/24/18 12:02 11/24/18 12:02 11/24/18 12:02 11/24/18 12:02 General appearance: Present: other (intubated) Results - Labs CBC & Chem 7: 11/22/18 05:35 11/25/18 05:40 Labs: Laboratory Last Values WBC 10.9 K/mm3 (4.5-11.0) 11/22/18 05:35 RBC 3.00 M/mm3 (3.65-5.03) L 11/22/18 05:35 Hgb 10.3 gm/dl (10.1-14.3) 11/22/18 05:35 Hct 30.5 % (30.3-42.9) D 11/22/18 05:35 MCV 102 fl (79-97) H 11/22/18 05:35 MCH 34 pg (28-32) H 11/22/18 05:35 MCHC 34 % (30-34) 11/22/18 05:35 RDW 17.2 % (13.2-15.2) H 11/22/18 05:35 Plt Count 190 K/mm3 (140-440) 11/22/18 05:35 Lymph % (Auto) 4.0 % (13.4-35.0) L 11/19/18 06:48 [place] % (Auto) 6.1 % (0.0-7.3) 11/19/18 06:48 Eos % (Auto) 0.0 % (0.0-4.3) 11/19/18 06:48 Baso % (Auto) 0.6 % (0.0-1.8) 11/19/18 06:48 Lymph # 0.3 K/mm3 (1.2-5.4) L 11/19/18 06:48 [place] # 0.5 K/mm3 (0.0-0.8) 11/19/18 06:48 Eos # 0.0 K/mm3 (0.0-0.4) 11/19/18 06:48 Baso # 0.0 K/mm3 (0.0-0.1) 11/19/18 06:48 Add Manual Diff Complete 11/22/18 05:35 Total Counted 100 11/22/18 05:35 Seg Neutrophils % Rivet Bucker 11/22/18 05:35 Seg Neuts % (Manual) 89.0 % (40.0-70.0) H 11/22/18 05:35 1.0 % 11/22/18 05:35 2.0 % (13.4-35.0) L 11/22/18 05:35 Reactive Lymphs % (Man) 0 % 11/22/18 05:35 8.0 % (0.0-7.3) H 11/22/18 05:35 0 % (0.0-4.3) 11/22/18 05:35 0 % (0.0-1.8) 11/22/18 05:35 0 % 11/22/18 05:35 0 % 11/22/18 05:35 0 % 11/22/18 05:35 0 % 11/22/18 05:35 Nucleated RBC % Not Reportable 11/22/18 05:35 Seg Neutrophils # 7.4 K/mm3 (1.8-7.7) 11/19/18 06:48 Seg Neutrophils # Man 9.7 K/mm3 (1.8-7.7) H 11/22/18 05:35 Band Neutrophils # 0.1 K/mm3 11/22/18 05:35 0.2 K/mm3 (1.2-5.4) L 11/22/18 05:35 Abs React Lymphs (Man) 0.0 K/mm3 11/22/18 05:35 0.9 K/mm3 (0.0-0.8) H 11/22/18 05:35 0.0 K/mm3 (0.0-0.4) 11/22/18 05:35 0.0 K/mm3 (0.0-0.1) 11/22/18 05:35 0.0 K/mm3 11/22/18 05:35 0.0 K/mm3 11/22/18 05:35 0.0 K/mm3 11/22/18 05:35 Blast Cells # 0.0 K/mm3 11/22/18 05:35 WBC Morphology Not Reportable 11/22/18 05:35 Hypersegmented Neuts Not Reportable 11/22/18 05:35 Hyposegmented Neuts Not Reportable 11/22/18 05:35 Hypogranular Neuts Not Reportable 11/22/18 05:35 Not Reportable 11/22/18 05:35 Not Reportable 11/22/18 05:35 Not Reportable 11/22/18 05:35 Not Reportable 11/22/18 05:35 Not Reportable 11/22/18 05:35 Not Reportable 11/22/18 05:35 Consistent w auto 11/22/18 05:35 Not Reportable 11/22/18 05:35 Plt Clumps, EDTA Not Reportable 11/22/18 05:35 Not Reportable 11/22/18 05:35 Not Reportable 11/22/18 05:35 Not Reportable 11/22/18 05:35 Plt Morphology Comment Not Reportable 11/22/18 05:35 RBC Morphology Not Reportable 11/22/18 05:35 Dimorphic RBCs Not Reportable 11/22/18 05:35 Not Reportable 11/22/18 05:35 Not Reportable 11/22/18 05:35 1+ 11/22/18 05:35 1+ 11/22/18 05:35 Not Reportable 11/22/18 05:35 1+ 11/22/18 05:35 Not Reportable 11/22/18 05:35 Not Reportable 11/22/18 05:35 Not Reportable 11/22/18 05:35 Not Reportable 11/22/18 05:35 Not Reportable 11/22/18 05:35 Few 11/22/18 05:35 Not Reportable 11/22/18 05:35 Not Reportable 11/22/18 05:35 Not Reportable 11/22/18 05:35 Not Reportable 11/22/18 05:35 Not Reportable 11/22/18 05:35 Not Reportable 11/22/18 05:35 Few 11/22/18 05:35 Acanthocytes (Spur) Not Reportable 11/22/18 05:35 Rouleaux Not Reportable 11/22/18 05:35 Not Reportable 11/22/18 05:35 Not Reportable 11/22/18 05:35 Not Reportable 11/22/18 05:35 Not Reportable 11/22/18 05:35 Hem Pathologist Commnt No 11/22/18 05:35 PT 23.2 Sec. (12.2-14.9) H 11/19/18 Unknown INR 2.11 (0.87-1.13) H 11/19/18 Unknown APTT 28.5 Sec. (24.2-36.6) 11/15/18 18:41 POC ABG pH 7.492 (7.35-7.45) H 11/24/18 04:19 POC ABG pCO2 35.4 (35-45) 11/24/18 04:19 POC ABG pO2 90 (80-105) 11/24/18 04:19 POC ABG HCO3 27.1 (22-26 mml/L) 11/24/18 04:19 POC ABG Total CO2 28 (23-27mmol/L) 11/24/18 04:19 POC ABG O2 Sat 98 11/24/18 04:19 POC ABG Base Excess 4 ((-2) - (+3)mmol/L) 11/24/18 04:19 30 % 11/24/18 04:19 Sodium 137 mmol/L (137-145) 11/24/18 Unknown Potassium 3.1 mmol/L (3.6-5.0) L 11/24/18 Unknown Chloride 95.3 mmol/L (98-107) L 11/24/18 Unknown Carbon Dioxide 27 mmol/L (22-30) 11/24/18 Unknown 18 mmol/L 11/24/18 Unknown BUN 86 mg/dL (7-17) H 11/24/18 Unknown 5.2 mg/dL (0.7-1.2) H 11/24/18 Unknown Estimated GFR 10 ml/min 11/24/18 Unknown 17 % 11/24/18 Unknown Glucose 95 mg/dL (65-100) 11/24/18 Unknown POC Glucose 95 (70-105) 11/24/18 05:16 Lactic Acid 1.50 mmol/L (0.7-2.0) 11/21/18 13:25 Calcium 7.9 mg/dL (8.4-10.2) L 11/24/18 Unknown Phosphorus 5.90 mg/dL (2.5-4.5) H 11/21/18 05:55 Magnesium 2.30 mg/dL (1.7-2.3) 11/20/18 22:20 0.50 mg/dL (0.1-1.2) 11/20/18 Unknown AST 57 units/L (5-40) H 11/20/18 Unknown ALT 25 units/L (7-56) 11/20/18 Unknown 53 units/L (35-129) 11/20/18 Unknown 293 units/L (30-135) H 11/15/18 18:41 CK-MB (CK-2) 5.6 ng/mL (0.0-4.0) H 11/15/18 18:41 CK-MB (CK-2) Rel Index 1.9 (0-4) 11/15/18 18:41 3.550 ng/mL (0.00-0.029) H* 11/20/18 22:20 4.2 g/dL (6.3-8.2) L 11/20/18 Unknown 2.3 g/dL (3.9-5) L 11/20/18 Unknown 1.2 % 11/20/18 Unknown Triglycerides 107 mg/dL (2-149) 11/08/18 03:09 Cholesterol 176 mg/dL (50-199) 11/08/18 03:09 137 mg/dL (50-130) H 11/08/18 03:09 33 mg/dL (40-59) L 11/08/18 03:09 5.33 % 11/08/18 03:09 11 units/L (13-60) L 11/13/18 05:38 Yellow (Yellow) 11/16/18 09:26 Slightly-cloudy (Clear) 11/16/18 09:26 7.0 (5.0-7.0) 11/16/18 09:26 Ur Specific [place] 1.014 (1.003-1.030) 11/16/18 09:26 <15 mg/dl mg/dL (Negative) 11/16/18 09:26 Neg mg/dL (Negative) 11/16/18 09:26 Tr mg/dL (Negative) 11/16/18 09:26 Neg (Negative) 11/16/18 09:26 Neg (Negative) 11/16/18 09:26 Neg (Negative) 11/16/18 09:26 < 2.0 mg/dL (<2.0) 11/16/18 09:26 Ur Leukocyte Esterase Neg (Negative) 11/16/18 09:26 2.0 /HPF (0.0-6.0) 11/16/18 09:26 1.0 /HPF (0.0-6.0) 11/16/18 09:26 U Epithel Cells (Auto) < 1.0 /HPF (0-13.0) 11/16/18 09:26 2+ /HPF (Negative) 11/16/18 09:26 Few /HPF 11/16/18 09:26 102.6 mg/dL (0.1-20.0) H 11/16/18 09:26 103.3 mg/dL (0.1-20.0) H 11/16/18 09:26 Protein/Creatinin Ratio 0.27 11/16/18 09:26 28 mg/dL (5-11.8) H 11/16/18 09:26 Blood Type O POSITIVE 11/19/18 Unknown Antibody Screen Negative 11/19/18 Unknown Active Medications - Current Medications Current Medications: Generic Name Dose Route Start Last Admin Trade Name Freq PRN Reason Stop Dose Admin Albuterol 2.5 mg 11/09/18 08:00 11/20/18 22:07 Proventil IH 2.5 mg Q4HRT PRN Administration Shortness Of Breath Amiodarone HCl 200 mg 11/10/18 22:00 11/24/18 10:40 Cordarone PO 200 mg BID RADHA Administration Lipase/Protease/Amylase 1 each 11/23/18 11:[address] 10,500 Unit FEEDTUBE PRN PRN For Clogged Feeding Tube Aspirin 81 mg 11/09/18 10:00 11/24/18 10:39 Halfprin Ec PO 81 mg DAILY RADHA Administration Atorvastatin Calcium 40 mg 11/11/18 22:00 11/23/18 22:45 Lipitor PO 40 mg QHS RADHA Administration Bupropion HCl 150 mg 11/21/18 10:00 11/24/18 10:39 Wellbutrin PO 150 mg BID RADHA Administration Dextrose 50 ml 11/20/18 21:45 D50w (25gm) Syringe IV PRN PRN Hypoglycemia Furosemide 80 mg 11/23/18 18:00 11/24/18 10:38 Lasix IV 80 mg Q8H RADHA Administration Hydromorphone HCl 0.5 mg 11/19/18 11:21 Dilaudid IV Q3H PRN Pain , Severe (7-10) Hydrophilic Ointment 1 applic 11/20/18 20:27 Vaseline Lip Therapy TP Q2HR PRN Dry Lips Norepinephrine 4 mg in 250 mls @ 7.5 mls/hr 11/20/18 21:00 11/22/18 21:15 Levophed Drip 4 Mg/Ns 250 Ml IV 2 mcg/min TITR RADHA 7.5 mls/hr Titration Protocol 2 MCG/MIN Propofol 1,000 mg in 100 mls @ 3.648 mls/hr 11/20/18 21:00 11/23/18 17:12 Diprivan 10 Mg/Ml IV 2.5 mcg/kg/min TITR RADHA 1.824 mls/hr Administration Protocol 5 MCG/KG/MIN Dobutamine HCl/Dextrose 500 mg in 250 mls @ 9.12 mls/hr 11/21/18 11:00 11/23/18 17:10 Dobutrex Drip 500mg/D5w 250ml IV 2.5 mcg/kg/min DIRECT RADHA 9.12 mls/hr Administration Protocol 2.5 MCG/KG/MIN Lansoprazole 30 mg 11/24/18 10:00 11/24/18 10:39 Prevacid Solutab FEEDTUBE 30 mg QDAY RADHA Administration Metoprolol Tartrate 2.5 mg 11/21/18 09:18 Lopressor IV Q6HR PRN Tachyarrhythmias Midazolam HCl 2 mg 11/20/18 20:27 11/21/18 04:08 Versed IV 2 mg Q10MIN PRN Administration Sedation Multi-Ingred Cream/Lotion/Oil/Oint 1 applic 11/20/18 20:27 Artificial Tears Ophth Oint OU Q4HR PRN Dry Eye(s) Ondansetron HCl 4 mg 11/11/18 13:44 11/18/18 17:51 Zofran IV 4 mg Q8H PRN Administration Nausea And Vomiting Polyethylene Glycol 17 gm 11/09/18 10:00 Miralax 3350 PO BID PRN Constipation Sertraline HCl 50 mg 11/09/18 10:00 11/24/18 10:39 Zoloft PO 50 mg DAILY RADHA Administration Simethicone 80 mg 11/12/18 11:49 11/15/18 04:05 Mylicon PO 80 mg Q6H PRN Administration Gas pain Simple Syrup 15 ml 11/23/18 11:36 Simple Syrup FEEDTUBE PRN PRN Hypoglycemia Simple Syrup 30 ml 11/23/18 11:36 Simple Syrup FEEDTUBE PRN PRN Hypoglycemia Sodium Bicarbonate 325 mg 11/23/18 11:36 Sodium Bicarbonate FEEDTUBE PRN PRN For Clogged Feeding Tube Sucralfate 1 gm 11/12/18 16:30 11/24/18 11:21 Carafate PO 1 gm ACHS RADHA Administration Nutrition/Malnutrition Assess - Dietary Evaluation Nutrition/Malnutrition Findings: Nutrition Notes Start: 11/14/18 15:47 Freq: Status: Active Protocol: Document 11/21/18 15:53 RM (Rec: 11/21/18 15:59 RM [id number]) Nutrition Notes Initial or Follow up Reassessment Current Diagnosis Acute Kidney Injury,Coronary Artery Disease,Heart Failure Other Pertinent Diagnosis cardiac arrest Current Diet clear liquid Labs/Tests Reviewed Pertinent Medications Levophed, Zofran, Propofol at 3.5 ml/hr (92 kcal/day) Height 5 ft 7 in Weight 121.6 kg [place] Body Weight (kg) 61.36 BMI 42.0 Subjective/Other Information Consulted for evaluate nutritoinal intake. Pt coded and moved to ICU. Pt on vent. Burn Absent Trauma Absent #1 Nutrition Diagnosis Inadequate oral intake Diagnosis Progress(for reassessment Continues documentation) Is patient on ventilator? No Is Patient Ambulatory and/or Out of Bed No REE-([facility]-confined to bed) 2133.516 Kcal/Kg value to use for calculation 14 Approximate Energy Requirements Using 1702 kcal/Kg Calculation Used for Recommendations Kcal/kg Additional Notes Protein Needs: 153g (2.5g/kg IBW) Fluid Needs: 1 ml/kcal Nutrition Intervention Change Diet Order: TF consult Nutrition Support: Vital 1.2 at 60 ml/hr Water flush of 100 mls q 4 hrs Kcal 1,728 Carbohydrates (gm) 108 Fluid (mL) 1,168 Goal #1 TF consult Anticipated Discharge Needs: Unable to determine at this time Follow-Up By: 11/24/18 Additional Comments Follow for TF consult
--- NOTE | 2018-11-24 15:04 | Progress Note ---
Assessment and Plan Acute on Chronic systolic heart failure Suspect non-compliance Multiple HF admission Lower GI bleed - per GI s/p Cardiopulmonary arrest device interrogation revealed no activity Acute renal failure -per Nephrology Ascites Patient had paracentesis in previous admissions Hx of LUE DVT Hx of coronary artery disease cardiac cath 03/2018 revealed patent SVG to LAD, patent SVG to OM, patent SVG to PDA and patent diagonal stent, LVEF 10-15%. Non-specific troponin Hx of Ischemic cardiomyopathy ejection fraction 10-15% by echo 08/2018 Presence of single chamber cardiac defibrillator underlying paroxysmal atrial fibrillation. Eliquis discontinued due to lower GI bleed. on amiodarone and metoprolol for suppression. Tobacco abuse Subjective Date of service: 11/24/18 Principal diagnosis: blood in stool Interval history: Patient is alert but remains on the vent. Creatinine continues to trend upwards, today 5.2. Objective Vital Signs Temp Pulse Pulse Resp BP Pulse Ox 11/24/18 14:00 94 H 18 110/59 100 11/24/18 13:30 117 H 24 110/60 100 11/24/18 13:00 100 H 18 106/61 99 11/24/18 12:30 113 H 19 106/61 100 11/24/18 12:02 106 H 17 102/60 100 11/24/18 12:00 103 H 22 102/60 100 11/24/18 11:30 96 H 13 111/66 99 11/24/18 11:00 97 H 11 L 135/64 100 11/24/18 10:30 96 H 16 135/64 99 11/24/18 10:00 91 H 17 136/64 99 11/24/18 09:30 80 15 120/68 100 11/24/18 09:00 86 15 122/64 99 11/24/18 08:51 86 11 L 127/58 99 11/24/18 08:47 87 127/58 100 11/24/18 08:30 78 14 127/58 100 11/24/18 08:00 97.1 F L 69 13 115/61 100 11/24/18 07:30 75 14 127/63 100 11/24/18 07:00 82 16 138/78 100 11/24/18 06:30 74 14 130/58 99 11/24/18 06:00 68 14 123/61 100 11/24/18 05:30 81 14 120/61 100 11/24/18 05:00 77 14 115/60 99 11/24/18 04:30 74 14 128/60 100 11/24/18 04:06 91 H 113/60 98 11/24/18 04:00 99.1 F 73 14 113/60 99 11/24/18 03:30 71 14 112/58 98 11/24/18 03:00 87 14 110/74 100 11/24/18 02:30 95 H 14 101/65 100 11/24/18 02:00 76 15 101/65 99 11/24/18 01:30 73 14 112/56 100 11/24/18 01:00 77 14 113/69 100 11/24/18 00:30 71 14 113/61 99 11/24/18 00:00 99.6 F 67 14 117/63 100 11/23/18 23:30 76 14 117/63 100 11/23/18 23:00 75 14 117/63 100 11/23/18 22:30 76 14 120/60 100 11/23/18 22:00 72 14 116/53 100 11/23/18 21:30 76 14 116/53 100 11/23/18 21:00 74 14 97/67 100 11/23/18 20:30 75 14 98/65 100 11/23/18 20:00 99.0 F 72 14 106/61 100 11/23/18 19:30 75 13 119/62 100 11/23/18 19:10 73 118/61 100 11/23/18 19:00 74 23 118/61 100 11/23/18 18:30 91 H 13 116/67 100 11/23/18 18:22 95 H 17 109/73 100 11/23/18 18:00 78 14 109/73 100 11/23/18 17:30 78 13 89/62 100 11/23/18 17:21 73 89/62 11/23/18 17:00 71 14 107/65 100 11/23/18 16:30 71 14 99/63 100 11/23/18 16:00 97.2 F L 71 71 14 98/64 100 11/23/18 15:54 98.2 F 11/23/18 15:30 94 H 24 98/64 100 - Physical Examination General: Other (on the vent) HEENT: Positive: PERRL Neck: Positive: trachea midline Cardiac: Positive: irregularly irregular Neuro: Positive: Grossly Intact Extremities: Absent: edema - Labs and Meds Comprehensive Metabolic Panel 11/24/18 Range/Units Unknown Sodium 137 (137-145) mmol/L Potassium 3.1 L (3.6-5.0) mmol/L Chloride 95.3 L (98-107) mmol/L Carbon Dioxide 27 (22-30) mmol/L BUN 86 H (7-17) mg/dL Creatinine 5.2 H (0.7-1.2) mg/dL Glucose 95 (65-100) mg/dL Calcium 7.9 L (8.4-10.2) mg/dL
[2018-11-24] MEDS: DOBUTREX DRIP 500MG/D5W 250ML 500 MG/250 ML BAG IV SCH (17:47)
[2018-11-24] MEDS: DILAUDID IV PRN (21:43)
[2018-11-25] MEDS: LASIX IV SCH ×3 (02:53→17:57)
[2018-11-25 06:18] LABS: Calcium 7.9 mg/dL (8.4-10.2)
--- NOTE | 2018-11-25 08:26 | Progress Note ---
Assessment and Plan 68 y/o female with known systolic heart failure, admitted post cardiac arrest, intubated, awake and alert. 1. Aunt and Patient informed about why we are suggested trach and peg. Patient and Aunt both express understanding as to why. Will go ahead and consult surgery as patient has agreed to procedure. I feel that patient is awake enough and appropriate to consent but the Aunt is available by phone and per her the cell phone is the best route (number in my note from 11/22) 2. Did not get the chance yesterday to ask renal about lasix drip. Will do so today. Per their note from yesterday, they appear to be ok with the current u rine output 3. Follow up any new cardiology recs 4. Continue PSV trials as tolerated 5. Given the fact that she may have invasive therapies procedures, will hold on anticoagulation for now. SCD's only. CCT 31 minutes. Subjective Date of service: 11/25/18 Principal diagnosis: blood in stool Interval history: Met with Aunt and Patient at the bedside this am. Sedation off and patient awake and alert. Follows commands. Dr. Adhikari present as well. Spoke with patient and Aunt about recurrent arrests and then need for repeat intubation. Nurse present at bedside as well. Objective Vital Signs - 12hr 11/24/18 11/24/18 11/24/18 20:30 21:00 22:00 Temperature Pulse Rate 94 H 96 H 82 Respiratory 14 14 14 Rate Blood Pressure 111/62 108/63 Blood Pressure 122/61 [Left] O2 Sat by Pulse 99 99 99 Oximetry 11/24/18 11/24/18 11/24/18 23:00 23:31 23:33 Temperature 98.4 F Pulse Rate 70 70 Respiratory 14 Rate Blood Pressure Blood Pressure 118/62 [Left] O2 Sat by Pulse 99 Oximetry 11/24/18 11/25/18 11/25/18 23:55 00:00 01:00 Temperature Pulse Rate 72 71 72 Respiratory 14 14 Rate Blood Pressure 121/62 Blood Pressure 121/60 123/61 [Left] O2 Sat by Pulse 99 99 99 Oximetry 11/25/18 11/25/18 11/25/18 02:00 03:00 03:13 Temperature 97.6 F Pulse Rate 72 82 Respiratory 14 14 Rate Blood Pressure Blood Pressure 124/60 133/73 [Left] O2 Sat by Pulse 99 99 Oximetry 11/25/18 11/25/18 11/25/18 03:16 04:00 05:00 Temperature Pulse Rate 71 72 71 Respiratory 14 14 Rate Blood Pressure 133/73 Blood Pressure 128/66 129/70 [Left] O2 Sat by Pulse 99 98 98 Oximetry 11/25/18 11/25/18 11/25/18 06:00 07:12 07:15 Temperature Pulse Rate 94 H 81 92 H Respiratory 15 Rate Blood Pressure 116/65 116/65 Blood Pressure 131/68 [Left] O2 Sat by Pulse 99 100 99 Oximetry Constitutional: no acute distress, alert, other (obese) Eyes: non-icteric ENT: oropharynx moist Neck: supple Effort: normal Ascultation: Bilateral: clear (anteriorly, decreased due to obesity) Percussion: Bilateral: not dull Cardiovascular: regular rate and rhythm (no mrg) Gastrointestinal: normoactive bowel sounds, soft, non-tender, non-distended Integumentary: normal Extremities: pink and warm, edema (2+ bilateral LE edema) Neurologic: normal mental status, non-focal exam, pupils equal and round, CN II- XII normal Psychiatric: mood appropriate, affect normal CBC and BMP: 11/22/18 05:35 11/25/18 05:40 ABG, PT/INR, D-dimer: ABG POC ABG pH 7.453 (7.35-7.45) H 11/25/18 03:57 POC ABG pCO2 38.2 (35-45) 11/25/18 03:57 POC ABG pO2 96 (80-105) 11/25/18 03:57 POC ABG HCO3 26.8 (22-26 mml/L) 11/25/18 03:57 POC ABG Total CO2 28 (23-27mmol/L) 11/25/18 03:57 POC ABG O2 Sat 98 11/25/18 03:57 PT/INR, D-dimer PT 23.2 Sec. (12.2-14.9) H 11/19/18 Unknown INR 2.11 (0.87-1.13) H 11/19/18 Unknown Abnormal lab findings: Abnormal Labs 11/08/18 11/08/18 11/08/18 03:09 03:09 05:50 WBC RBC 3.37 L MCV 106 H MCH 34 H RDW 17.1 H Lymph % (Auto) 4.6 L [place] % (Auto) 11.5 H Lymph # 0.2 L Seg Neutrophils % 83.0 H Seg Neuts % (Manual) Lymphocytes % (Manual) Monocytes % (Manual) Nucleated RBC % Seg Neutrophils # Man Lymphocytes # (Manual) Monocytes # (Manual) PT INR POC ABG pH POC ABG pCO2 POC ABG pO2 Sodium 135 L Potassium Chloride Carbon Dioxide BUN 29 H Creatinine 1.4 H Glucose POC Glucose Lactic Acid Calcium 8.1 L Phosphorus AST Total Creatine Kinase CK-MB (CK-2) Troponin T 0.042 H 0.039 H Total Protein Albumin LDL Cholesterol Direct 137 H HDL Cholesterol 33 L Lipase Urine Creatinine Urine Total Protein 11/10/18 11/10/18 11/10/18 05:47 07:32 13:08 WBC RBC MCV MCH RDW Lymph % (Auto) [place] % (Auto) Lymph # Seg Neutrophils % Seg Neuts % (Manual) Lymphocytes % (Manual) Monocytes % (Manual) Nucleated RBC % Seg Neutrophils # Man Lymphocytes # (Manual) Monocytes # (Manual) PT INR POC ABG pH POC ABG pCO2 POC ABG pO2 Sodium Potassium Chloride Carbon Dioxide 32 H BUN 25 H Creatinine Glucose 104 H POC Glucose 115 H 142 H Lactic Acid Calcium 7.9 L Phosphorus AST Total Creatine Kinase CK-MB (CK-2) Troponin T Total Protein Albumin LDL Cholesterol Direct HDL Cholesterol Lipase Urine Creatinine Urine Total Protein 11/10/18 11/10/18 11/11/18 16:55 21:21 07:51 WBC RBC MCV MCH RDW Lymph % (Auto) [place] % (Auto) Lymph # Seg Neutrophils % Seg Neuts % (Manual) Lymphocytes % (Manual) Monocytes % (Manual) Nucleated RBC % Seg Neutrophils # Man Lymphocytes # (Manual) Monocytes # (Manual) PT INR POC ABG pH POC ABG pCO2 POC ABG pO2 Sodium Potassium Chloride Carbon Dioxide BUN Creatinine Glucose POC Glucose 125 H 126 H 118 H Lactic Acid Calcium Phosphorus AST Total Creatine Kinase CK-MB (CK-2) Troponin T Total Protein Albumin LDL Cholesterol Direct HDL Cholesterol Lipase Urine Creatinine Urine Total Protein 11/11/18 11/11/18 11/12/18 12:25 21:32 07:46 WBC RBC MCV MCH RDW Lymph % (Auto) [place] % (Auto) Lymph # Seg Neutrophils % Seg Neuts % (Manual) Lymphocytes % (Manual) Monocytes % (Manual) Nucleated RBC % Seg Neutrophils # Man Lymphocytes # (Manual) Monocytes # (Manual) PT INR POC ABG pH POC ABG pCO2 POC ABG pO2 Sodium Potassium Chloride 97.7 L Carbon Dioxide BUN 28 H Creatinine Glucose POC Glucose 125 H 126 H Lactic Acid Calcium 8.0 L Phosphorus AST Total Creatine Kinase CK-MB (CK-2) Troponin T Total Protein Albumin LDL Cholesterol Direct HDL Cholesterol Lipase Urine Creatinine Urine Total Protein 11/12/18 11/12/18 11/13/18 08:57 11:35 05:38 WBC RBC MCV MCH RDW Lymph % (Auto) [place] % (Auto) Lymph # Seg Neutrophils % Seg Neuts % (Manual) Lymphocytes % (Manual) Monocytes % (Manual) Nucleated RBC % Seg Neutrophils # Man Lymphocytes # (Manual) Monocytes # (Manual) PT INR POC ABG pH POC ABG pCO2 POC ABG pO2 Sodium Potassium Chloride 97.3 L Carbon Dioxide 31 H BUN 33 H Creatinine 1.5 H Glucose 111 H POC Glucose 120 H 137 H Lactic Acid Calcium 7.8 L Phosphorus AST Total Creatine Kinase CK-MB (CK-2) Troponin T Total Protein Albumin LDL Cholesterol Direct HDL Cholesterol Lipase Urine Creatinine Urine Total Protein 11/13/18 11/14/18 11/15/18 05:38 06:07 06:11 WBC RBC MCV MCH RDW Lymph % (Auto) [place] % (Auto) Lymph # Seg Neutrophils % Seg Neuts % (Manual) Lymphocytes % (Manual) Monocytes % (Manual) Nucleated RBC % Seg Neutrophils # Man Lymphocytes # (Manual) Monocytes # (Manual) PT INR POC ABG pH POC ABG pCO2 POC ABG pO2 Sodium 135 L Potassium Chloride 96.8 L Carbon Dioxide BUN 36 H Creatinine 1.9 H Glucose 117 H POC Glucose 128 H Lactic Acid Calcium 8.2 L Phosphorus AST Total Creatine Kinase CK-MB (CK-2) Troponin T Total Protein Albumin LDL Cholesterol Direct HDL Cholesterol Lipase 11 L Urine Creatinine Urine Total Protein 11/15/18 11/15/18 11/15/18 08:50 18:41 18:41 WBC RBC 3.51 L MCV 103 H MCH 34 H RDW 17.4 H Lymph % (Auto) 3.3 L [place] % (Auto) 9.2 H Lymph # 0.2 L Seg Neutrophils % 87.2 H Seg Neuts % (Manual) Lymphocytes % (Manual) Monocytes % (Manual) Nucleated RBC % Seg Neutrophils # Man Lymphocytes # (Manual) Monocytes # (Manual) PT INR POC ABG pH 7.533 H POC ABG pCO2 33.9 L POC ABG pO2 237 H Sodium 136 L Potassium Chloride 95.3 L Carbon Dioxide BUN 46 H Creatinine 2.3 H Glucose POC Glucose Lactic Acid Calcium 8.3 L Phosphorus AST Total Creatine Kinase CK-MB (CK-2) Troponin T Total Protein 4.6 L Albumin 1.8 L LDL Cholesterol Direct HDL Cholesterol Lipase Urine Creatinine Urine Total Protein 11/15/18 11/15/18 11/16/18 18:41 18:41 03:53 WBC RBC MCV MCH RDW Lymph % (Auto) [place] % (Auto) Lymph # Seg Neutrophils % Seg Neuts % (Manual) Lymphocytes % (Manual) Monocytes % (Manual) Nucleated RBC % Seg Neutrophils # Man Lymphocytes # (Manual) Monocytes # (Manual) PT 18.6 H INR 1.59 H POC ABG pH 7.507 H POC ABG pCO2 34.9 L POC ABG pO2 133 H Sodium Potassium Chloride Carbon Dioxide BUN Creatinine Glucose POC Glucose Lactic Acid Calcium Phosphorus AST Total Creatine Kinase 293 H CK-MB (CK-2) 5.6 H Troponin T 2.830 H* Total Protein Albumin LDL Cholesterol Direct HDL Cholesterol Lipase Urine Creatinine Urine Total Protein 11/16/18 11/16/18 11/16/18 05:35 05:35 09:26 WBC RBC 3.44 L MCV 103 H MCH 34 H RDW 17.3 H Lymph % (Auto) 2.5 L [place] % (Auto) 9.3 H Lymph # 0.2 L Seg Neutrophils % 87.9 H Seg Neuts % (Manual) Lymphocytes % (Manual) Monocytes % (Manual) Nucleated RBC % Seg Neutrophils # Man Lymphocytes # (Manual) Monocytes # (Manual) PT INR POC ABG pH POC ABG pCO2 POC ABG pO2 Sodium 135 L Potassium Chloride 95.9 L Carbon Dioxide BUN 47 H Creatinine 2.2 H Glucose POC Glucose Lactic Acid Calcium 8.1 L Phosphorus 4.60 H AST Total Creatine Kinase CK-MB (CK-2) Troponin T Total Protein Albumin LDL Cholesterol Direct HDL Cholesterol Lipase Urine Creatinine 103.3 H Urine Total Protein 11/16/18 11/17/18 11/18/18 09:26 10:42 04:45 WBC RBC 3.41 L 3.50 L MCV 104 H 104 H MCH 34 H 34 H RDW 17.4 H 17.7 H Lymph % (Auto) 4.1 L 4.9 L [place] % (Auto) 9.8 H 7.6 H Lymph # 0.2 L 0.3 L Seg Neutrophils % 85.8 H 87.1 H Seg Neuts % (Manual) Lymphocytes % (Manual) Monocytes % (Manual) Nucleated RBC % Seg Neutrophils # Man Lymphocytes # (Manual) Monocytes # (Manual) PT INR POC ABG pH POC ABG pCO2 POC ABG pO2 Sodium Potassium Chloride Carbon Dioxide BUN Creatinine Glucose POC Glucose Lactic Acid Calcium Phosphorus AST Total Creatine Kinase CK-MB (CK-2) Troponin T Total Protein Albumin LDL Cholesterol Direct HDL Cholesterol Lipase Urine Creatinine 102.6 H Urine Total Protein 28 H 11/18/18 11/19/18 11/19/18 04:45 06:48 06:48 WBC RBC 3.63 L MCV 105 H MCH 35 H RDW 17.2 H Lymph % (Auto) 4.0 L [place] % (Auto) Lymph # 0.3 L Seg Neutrophils % 89.3 H Seg Neuts % (Manual) Lymphocytes % (Manual) Monocytes % (Manual) Nucleated RBC % Seg Neutrophils # Man Lymphocytes # (Manual) Monocytes # (Manual) PT INR POC ABG pH POC ABG pCO2 POC ABG pO2 Sodium 135 L Potassium 3.5 L Chloride 95.9 L 95.4 L Carbon Dioxide BUN 58 H 64 H Creatinine 2.7 H 3.3 H Glucose 137 H 102 H POC Glucose Lactic Acid Calcium 7.7 L 8.0 L Phosphorus 5.00 H 6.10 H D AST Total Creatine Kinase CK-MB (CK-2) Troponin T Total Protein Albumin LDL Cholesterol Direct HDL Cholesterol Lipase Urine Creatinine Urine Total Protein 11/19/18 11/20/18 11/20/18 Unknown 01:15 04:30 WBC RBC 3.37 L MCV 105 H MCH 34 H RDW 17.5 H Lymph % (Auto) [place] % (Auto) Lymph # Seg Neutrophils % Seg Neuts % (Manual) 93.0 H Lymphocytes % (Manual) 3.0 L Monocytes % (Manual) Nucleated RBC % 1.0 H Seg Neutrophils # Man 8.1 H Lymphocytes # (Manual) 0.3 L Monocytes # (Manual) PT 23.2 H INR 2.11 H POC ABG pH POC ABG pCO2 POC ABG pO2 Sodium Potassium Chloride Carbon Dioxide BUN Creatinine Glucose POC Glucose Lactic Acid 4.30 H* Calcium Phosphorus AST Total Creatine Kinase CK-MB (CK-2) Troponin T Total Protein Albumin LDL Cholesterol Direct HDL Cholesterol Lipase Urine Creatinine Urine Total Protein 11/20/18 11/20/18 11/20/18 04:30 19:25 21:33 WBC RBC MCV MCH RDW Lymph % (Auto) [place] % (Auto) Lymph # Seg Neutrophils % Seg Neuts % (Manual) Lymphocytes % (Manual) Monocytes % (Manual) Nucleated RBC % Seg Neutrophils # Man Lymphocytes # (Manual) Monocytes # (Manual) PT INR POC ABG pH 7.228 L POC ABG pCO2 30.5 L POC ABG pO2 160 H Sodium 136 L Potassium Chloride 95.5 L Carbon Dioxide BUN 72 H Creatinine 3.6 H Glucose POC Glucose 106 H Lactic Acid Calcium 8.1 L Phosphorus 6.60 H AST Total Creatine Kinase CK-MB (CK-2) Troponin T Total Protein Albumin LDL Cholesterol Direct HDL Cholesterol Lipase Urine Creatinine Urine Total Protein 11/20/18 11/20/18 11/20/18 21:50 22:11 22:20 WBC RBC MCV MCH RDW Lymph % (Auto) [place] % (Auto) Lymph # Seg Neutrophils % Seg Neuts % (Manual) Lymphocytes % (Manual) Monocytes % (Manual) Nucleated RBC % Seg Neutrophils # Man Lymphocytes # (Manual) Monocytes # (Manual) PT INR POC ABG pH POC ABG pCO2 POC ABG pO2 Sodium Potassium Chloride Carbon Dioxide BUN Creatinine Glucose POC Glucose 64 L 110 H Lactic Acid 8.40 H* Calcium Phosphorus AST Total Creatine Kinase CK-MB (CK-2) Troponin T Total Protein Albumin LDL Cholesterol Direct HDL Cholesterol Lipase Urine Creatinine Urine Total Protein 11/20/18 11/20/18 11/21/18 22:20 Unknown 04:52 WBC RBC MCV MCH RDW Lymph % (Auto) [place] % (Auto) Lymph # Seg Neutrophils % Seg Neuts % (Manual) Lymphocytes % (Manual) Monocytes % (Manual) Nucleated RBC % Seg Neutrophils # Man Lymphocytes # (Manual) Monocytes # (Manual) PT INR POC ABG pH 7.643 H POC ABG pCO2 POC ABG pO2 161 H Sodium 134 L Potassium 5.5 H D Chloride 93.4 L Carbon Dioxide 17 L D BUN 72 H Creatinine 4.2 H Glucose POC Glucose Lactic Acid Calcium 8.0 L Phosphorus AST 57 H Total Creatine Kinase CK-MB (CK-2) Troponin T 3.550 H* Total Protein 4.2 L Albumin 2.3 L LDL Cholesterol Direct HDL Cholesterol Lipase Urine Creatinine Urine Total Protein 11/21/18 11/21/18 11/21/18 05:55 05:55 05:55 WBC 12.2 H RBC MCV 103 H MCH 34 H RDW 16.9 H Lymph % (Auto) [place] % (Auto) Lymph # Seg Neutrophils % Seg Neuts % (Manual) 96.0 H Lymphocytes % (Manual) 2.0 L Monocytes % (Manual) Nucleated RBC % Seg Neutrophils # Man 11.7 H Lymphocytes # (Manual) 0.2 L Monocytes # (Manual) PT INR POC ABG pH POC ABG pCO2 POC ABG pO2 Sodium 136 L Potassium Chloride 94.2 L Carbon Dioxide BUN 76 H Creatinine 4.3 H Glucose 134 H POC Glucose Lactic Acid 2.70 H* Calcium 7.9 L Phosphorus 5.90 H AST Total Creatine Kinase CK-MB (CK-2) Troponin T Total Protein Albumin LDL Cholesterol Direct HDL Cholesterol Lipase Urine Creatinine Urine Total Protein 11/21/18 11/21/18 11/21/18 06:00 06:14 07:53 WBC RBC MCV MCH RDW Lymph % (Auto) [place] % (Auto) Lymph # Seg Neutrophils % Seg Neuts % (Manual) Lymphocytes % (Manual) Monocytes % (Manual) Nucleated RBC % Seg Neutrophils # Man Lymphocytes # (Manual) Monocytes # (Manual) PT INR POC ABG pH 7.516 H POC ABG pCO2 30.4 L POC ABG pO2 118 H Sodium Potassium Chloride Carbon Dioxide BUN Creatinine Glucose POC Glucose 154 H Lactic Acid 2.50 H* Calcium Phosphorus AST Total Creatine Kinase CK-MB (CK-2) Troponin T Total Protein Albumin LDL Cholesterol Direct HDL Cholesterol Lipase Urine Creatinine Urine Total Protein 11/21/18 11/21/18 11/22/18 13:08 23:58 05:07 WBC RBC MCV MCH RDW Lymph % (Auto) [place] % (Auto) Lymph # Seg Neutrophils % Seg Neuts % (Manual) Lymphocytes % (Manual) Monocytes % (Manual) Nucleated RBC % Seg Neutrophils # Man Lymphocytes # (Manual) Monocytes # (Manual) PT INR POC ABG pH 7.452 H POC ABG pCO2 POC ABG pO2 79 L Sodium Potassium Chloride Carbon Dioxide BUN Creatinine Glucose POC Glucose 115 H 121 H Lactic Acid Calcium Phosphorus AST Total Creatine Kinase CK-MB (CK-2) Troponin T Total Protein Albumin LDL Cholesterol Direct HDL Cholesterol Lipase Urine Creatinine Urine Total Protein 11/22/18 11/22/18 11/22/18 05:35 05:35 05:44 WBC RBC 3.00 L MCV 102 H MCH 34 H RDW 17.2 H Lymph % (Auto) [place] % (Auto) Lymph # Seg Neutrophils % Seg Neuts % (Manual) 89.0 H Lymphocytes % (Manual) 2.0 L Monocytes % (Manual) 8.0 H Nucleated RBC % Seg Neutrophils # Man 9.7 H Lymphocytes # (Manual) 0.2 L Monocytes # (Manual) 0.9 H PT INR POC ABG pH POC ABG pCO2 POC ABG pO2 Sodium 136 L Potassium 3.5 L Chloride 97.0 L Carbon Dioxide BUN 78 H Creatinine 4.3 H Glucose 159 H POC Glucose 119 H Lactic Acid Calcium 7.3 L Phosphorus AST Total Creatine Kinase CK-MB (CK-2) Troponin T Total Protein Albumin LDL Cholesterol Direct HDL Cholesterol Lipase Urine Creatinine Urine Total Protein 11/23/18 11/23/18 11/24/18 03:29 04:22 04:19 WBC RBC MCV MCH RDW Lymph % (Auto) [place] % (Auto) Lymph # Seg Neutrophils % Seg Neuts % (Manual) Lymphocytes % (Manual) Monocytes % (Manual) Nucleated RBC % Seg Neutrophils # Man Lymphocytes # (Manual) Monocytes # (Manual) PT INR POC ABG pH 7.530 H 7.492 H POC ABG pCO2 32.3 L POC ABG pO2 Sodium Potassium 3.2 L Chloride 95.4 L Carbon Dioxide BUN 83 H Creatinine 5.0 H Glucose POC Glucose Lactic Acid Calcium 7.9 L Phosphorus AST Total Creatine Kinase CK-MB (CK-2) Troponin T Total Protein Albumin LDL Cholesterol Direct HDL Cholesterol Lipase Urine Creatinine Urine Total Protein 11/24/18 11/25/18 11/25/18 Unknown 03:57 05:18 WBC RBC MCV MCH RDW Lymph % (Auto) [place] % (Auto) Lymph # Seg Neutrophils % Seg Neuts % (Manual) Lymphocytes % (Manual) Monocytes % (Manual) Nucleated RBC % Seg Neutrophils # Man Lymphocytes # (Manual) Monocytes # (Manual) PT INR POC ABG pH 7.453 H POC ABG pCO2 POC ABG pO2 Sodium Potassium 3.1 L Chloride 95.3 L Carbon Dioxide BUN 86 H Creatinine 5.2 H Glucose POC Glucose 140 H Lactic Acid Calcium 7.9 L Phosphorus AST Total Creatine Kinase CK-MB (CK-2) Troponin T Total Protein Albumin LDL Cholesterol Direct HDL Cholesterol Lipase Urine Creatinine Urine Total Protein 11/25/18 05:40 WBC RBC MCV MCH RDW Lymph % (Auto) [place] % (Auto) Lymph # Seg Neutrophils % Seg Neuts % (Manual) Lymphocytes % (Manual) Monocytes % (Manual) Nucleated RBC % Seg Neutrophils # Man Lymphocytes # (Manual) Monocytes # (Manual) PT INR POC ABG pH POC ABG pCO2 POC ABG pO2 Sodium 135 L Potassium Chloride 94.5 L Carbon Dioxide BUN 86 H Creatinine 5.4 H Glucose 118 H POC Glucose Lactic Acid Calcium 7.9 L Phosphorus AST Total Creatine Kinase CK-MB (CK-2) Troponin T Total Protein Albumin LDL Cholesterol Direct HDL Cholesterol Lipase Urine Creatinine Urine Total Protein
[2018-11-25] MEDS: CARAFATE PO SCH ×4 (08:33→21:27)
[2018-11-25] MEDS: WELLBUTRIN PO SCH ×2 (09:33→21:26)
[2018-11-25] MEDS: HALFPRIN EC PO SCH (09:33)
[2018-11-25] MEDS: ZOLOFT PO SCH (09:34)
[2018-11-25] MEDS: CORDARONE PO SCH ×2 (09:34→21:26)
[2018-11-25] MEDS: PREVACID SOLUTAB FEEDTUBE SCH (09:34)
[2018-11-25] MEDS: ZOFRAN IV PRN (09:35)
--- NOTE | 2018-11-25 11:25 | Consultation ---
History of Present Illness Consult date: 11/25/18 Chief complaint: vent dependence - History of present illness History of present illness: 68 yo F who was admitted to hospital on 11/08/18 and treated for heart failure. She had a cardiac arrest on 11/15/18 during which she was intubated and ROSC was obtained. She was extubated by pulmonology. She once again arrested on 11/20/18, was intubated, had ROSC. She remains intubated since then. Due to multiple arrests, pulmonology requested surgery to evaluate patient for trach/peg. Past History Past Medical History: acute OR, CAD, COPD, heart failure, stroke, other (as per HPI) Past Surgical History: CABG, PTCA, Other (s/p AICD) Social history: smoking. denies: alcohol abuse Family history: no significant family history Medications and Allergies Allergies Allergy/AdvReac Type Severity Reaction Status Date / Time lisinopril Allergy Anaphylaxis Verified 02/24/18 09:15 Penicillins Allergy Seizure Verified 02/24/18 09:15 Sulfa (Sulfonamide AdvReac Hives Verified 02/24/18 09:15 Antibiotics) Home Medications Medication Instructions Recorded Confirmed Last Taken Type Aspirin [Adult Aspirin] 81 mg PO DAILY 02/24/18 11/08/18 05/09/18 History Spironolactone [Aldactone] 25 mg PO QDAY 02/24/18 11/08/18 05/09/18 History buPROPion SR [Wellbutrin SR] 150 mg PO BID 02/24/18 11/08/18 05/09/18 History Albuterol Sulfate [Ventolin HFA] 1 puff IH Q6H PRN 30 Days 03/03/18 11/08/18 05/09/18 Rx hfa.aer.ad Cyclobenzaprine [Flexeril 10 MG 10 mg PO TID PRN 05/10/18 11/08/18 05/09/18 History TAB] Diphenhydramine HCl [Allergy 25 mg PO DAILY 05/10/18 11/08/18 05/09/18 History Relief] ISOSORBIDE MONOnitrate [Imdur ER] 60 mg PO QDAY 05/10/18 11/08/18 05/09/18 History Sertraline HCl [Zoloft] 50 mg PO DAILY 05/10/18 11/08/1805/09/19 History hydrALAZINE [Apresoline TAB] 25 mg PO Q8HR 05/10/18 11/08/18 05/09/18 History Apixaban [Eliquis] 5 mg PO Q12HR #60 tablet 07/02/18 11/08/18 Unknown Rx Pantoprazole [Protonix TAB] 40 mg PO QDAY #30 tablet 07/02/18 11/08/18 Unknown Rx Polyethylene Glycol 3350 [Miralax 17 gm PO BID PRN #30 powd.pack 07/02/18 11/08/18 Unknown Rx 3350] Carvedilol [Coreg] 3.125 mg PO BID #60 tablet 09/10/18 11/08/18 Unknown Rx Magnesium Oxide [Mag-Ox] 400 mg PO QDAY #7 tablet 10/04/18 11/08/18 Unknown Rx Potassium Chloride [K-Dur] 20 meq PO QDAY #7 tablet 10/04/18 11/08/18 Unknown Rx Torsemide [Demadex] 40 mg PO BID #60 tablet 10/04/18 11/08/18 Unknown Rx metOLazone [Zaroxolyn] 5 mg PO QDAY #30 tablet 10/04/18 11/08/18 Unknown Rx Active Meds: Active Medications Albuterol (Proventil) 2.5 mg IH Q4HRT PRN PRN Reason: Shortness Of Breath Last Admin: 11/20/18 22:07 Dose: 2.5 mg Documented by: Amiodarone HCl (Cordarone) 200 mg PO BID [facility] Last Admin: 11/25/18 09:34 Dose: 200 mg Documented by: Lipase/Protease/Amylase (Supa Nielsen 10,500 Unit) 1 each FEEDTUBE PRN PRN PRN Reason: For Clogged Feeding Tube Aspirin (Halfprin Ec) 81 mg PO DAILY [facility] Last Admin: 11/25/18 09:33 Dose: 81 mg Documented by: Atorvastatin Calcium (Lipitor) 40 mg PO QHS [facility] Last Admin: 11/24/18 21:42 Dose: 40 mg Documented by: Bupropion HCl (Wellbutrin) 150 mg PO BID [facility] Last Admin: 11/25/18 09:33 Dose: 150 mg Documented by: Dextrose (D50w (25gm) Syringe) 50 ml IV PRN PRN PRN Reason: Hypoglycemia Furosemide (Lasix) 80 mg IV Q8H RADHA Last Admin: 11/25/18 09:32 Dose: 80 mg Documented by: Hydromorphone HCl (Dilaudid) 0.5 mg IV Q3H PRN PRN Reason: Pain , Severe (7-10) Last Admin: 11/24/18 21:43 Dose: 0.5 mg Documented by: Hydrophilic Ointment (Vaseline Lip Therapy) 1 applic TP Q2HR PRN PRN Reason: Dry Lips Norepinephrine (Levophed Drip 4 Mg/Ns 250 Ml) 4 mg in 250 mls @ 7.5 mls/hr IV TITR RADHA; Protocol Last Titration: 11/22/18 21:15 Dose: 2 mcg/min, 7.5 mls/hr Documented by: Propofol (Diprivan 10 Mg/Ml) 1,000 mg in 100 mls @ 3.648 mls/hr IV TITR RADHA; Protocol Last Titration: 11/24/18 17:48 Dose: 0 mcg/kg/min, 0 mls/hr Documented by: Dobutamine HCl/Dextrose (Dobutrex Drip 500mg/D5w 250ml) 500 mg in 250 mls @ 9.12 mls/hr IV DIRECT RADHA; Protocol Last Admin: 11/24/18 17:47 Dose: 2.5 mcg/kg/min, 9.12 mls/hr Documented by: Lansoprazole (Prevacid Solutab) 30 mg FEEDTUBE QDAY RADHA Last Admin: 11/25/18 09:34 Dose: 30 mg Documented by: Metoprolol Tartrate (Lopressor) 2.5 mg IV Q6HR PRN PRN Reason: Tachyarrhythmias Midazolam HCl (Versed) 2 mg IV Q10MIN PRN PRN Reason: Sedation Last Admin: 11/21/18 04:08 Dose: 2 mg Documented by: Multi-Ingred Cream/Lotion/Oil/Oint (Artificial Tears Ophth Oint) 1 applic OU Q4HR PRN PRN Reason: Dry Eye(s) Ondansetron HCl (Zofran) 4 mg IV Q8H PRN PRN Reason: Nausea And Vomiting Last Admin: 11/25/18 09:35 Dose: 4 mg Documented by: Polyethylene Glycol (Miralax 3350) 17 gm PO BID PRN PRN Reason: Constipation Sertraline HCl (Zoloft) 50 mg PO DAILY [facility] Last Admin: 11/25/18 09:34 Dose: 50 mg Documented by: Simethicone (Mylicon) 80 mg PO Q6H PRN PRN Reason: Gas pain Last Admin: 11/15/18 04:05 Dose: 80 mg Documented by: Simple Syrup (Simple Syrup) 15 ml FEEDTUBE PRN PRN PRN Reason: Hypoglycemia Simple Syrup (Simple Syrup) 30 ml FEEDTUBE PRN PRN PRN Reason: Hypoglycemia Sodium Bicarbonate (Sodium Bicarbonate) 325 mg FEEDTUBE PRN PRN PRN Reason: For Clogged Feeding Tube Sucralfate (Carafate) 1 gm PO ACHS [facility] Last Admin: 11/25/18 08:33 Dose: 1 gm Documented by: Review of Systems ROS unobtainable: due to endotracheal tube Exam Vital Signs Pulse Resp Pulse Ox 59 L 13 100 11/08/18 05:30 11/08/18 05:30 11/08/18 05:30 Narrative exam: Gen: Awake and alert on vent. Answers yes and no questions. NAD ENT: ETT and dobhoff in place CV; s1, S2+ resp: on vent Abd; soft, obese, dependent edema/anasarca of abdominal wall. NT Ext: no c/c/e - crocker with dark urine Results - Labs 11/22/18 05:35 11/25/18 05:40 Abnormal lab results 11/25/18 11/25/18 11/25/18 Range/Units 03:57 05:18 05:40 POC ABG pH 7.453 H (7.35-7.45) Sodium 135 L (137-145) mmol/L Chloride 94.5 L (98-107) mmol/L BUN 86 H (7-17) mg/dL Creatinine 5.4 H (0.7-1.2) mg/dL Glucose 118 H (65-100) mg/dL POC Glucose 140 H (70-105) Calcium 7.9 L (8.4-10.2) mg/dL Diabetes panel 11/25/18 Range/Units 05:40 Sodium 135 L (137-145) mmol/L Potassium 3.6 (3.6-5.0) mmol/L Chloride 94.5 L (98-107) mmol/L Carbon Dioxide 28 (22-30) mmol/L BUN 86 H (7-17) mg/dL Creatinine 5.4 H (0.7-1.2) mg/dL Glucose 118 H (65-100) mg/dL Calcium 7.9 L (8.4-10.2) mg/dL Calcium panel 11/25/18 Range/Units 05:40 Calcium 7.9 L (8.4-10.2) mg/dL Pituitary panel 11/25/18 Range/Units 05:40 Sodium 135 L (137-145) mmol/L Potassium 3.6 (3.6-5.0) mmol/L Chloride 94.5 L (98-107) mmol/L Carbon Dioxide 28 (22-30) mmol/L BUN 86 H (7-17) mg/dL Creatinine 5.4 H (0.7-1.2) mg/dL Glucose 118 H (65-100) mg/dL Calcium 7.9 L (8.4-10.2) mg/dL Adrenal panel 11/25/18 Range/Units 05:40 Sodium 135 L (137-145) mmol/L Potassium 3.6 (3.6-5.0) mmol/L Chloride 94.5 L (98-107) mmol/L Carbon Dioxide 28 (22-30) mmol/L BUN 86 H (7-17) mg/dL Creatinine 5.4 H (0.7-1.2) mg/dL Glucose 118 H (65-100) mg/dL Calcium 7.9 L (8.4-10.2) mg/dL - Imaging Chest x-ray: report reviewed, image reviewed Assessment and Plan 68 yo F 1. VDRF 2. s/p cardiac arrest x2 3. CHF, EF of 10-15% 4. Afib 5. AICD 6. CAD with hx of cardiac stenting and bypass 7. GIB Plan: 1. Will discuss risk of general anesthesia with cardiology. Patient currently on dobutamine gtt. With patient's cardiac issues, s/p multiple cardiac arrests this admission, and decompensated CHF I suspect she will be a high risk candidate for general anesthesia. However, uncertain what can be done to optimize her further. 2. Patient is agreeable to proceed with procedures. Will discuss need for PEG with Service Associate. May be difficult to transilluminate abdominal wall due to patient's body habitus 3. Once patient is deemed stable from medical standpoint, will schedule procedures 4. Continue current management per critical care and other consultants Thank you, please call with questions.
--- NOTE | 2018-11-25 11:59 | Progress Note ---
Assessment and Plan Acute on Chronic systolic heart failure Suspect non-compliance Multiple HF admission Lower GI bleed - per GI s/p Cardiopulmonary arrest device interrogation revealed no activity Acute renal failure -per Nephrology Ascites Patient had paracentesis in previous admissions Hx of LUE DVT Hx of coronary artery disease cardiac cath 03/2018 revealed patent SVG to LAD, patent SVG to OM, patent SVG to PDA and patent diagonal stent, LVEF 10-15%. Non-specific troponin Hx of Ischemic cardiomyopathy ejection fraction 10-15% by echo 08/2018 Presence of single chamber cardiac defibrillator underlying paroxysmal atrial fibrillation. Eliquis discontinued due to lower GI bleed. on amiodarone and metoprolol for suppression. Tobacco abuse Conservative cardiac management. Subjective Date of service: 11/25/18 Principal diagnosis: blood in stool Interval history: Patient is alert but remains on the vent. Objective Vital Signs Temp Pulse Resp BP BP Pulse Ox 11/25/18 11:30 99 H 18 115/67 98 11/25/18 11:25 97 H 115/67 97 11/25/18 11:00 105 H 18 104/64 98 11/25/18 10:30 85 15 99/67 97 11/25/18 10:00 95 H 15 101/68 99 11/25/18 09:30 93 H 16 118/73 98 11/25/18 09:00 96 H 18 118/73 97 11/25/18 08:30 110 H 21 110/79 99 11/25/18 08:00 97.6 F 94 H 15 116/71 99 11/25/18 07:30 90 14 116/71 99 11/25/18 07:15 92 H 116/65 99 11/25/18 07:12 81 116/65 100 11/25/18 07:00 74 14 116/65 99 11/25/18 06:30 93 H 14 109/70 98 11/25/18 06:00 90 14 124/78 131/68 98 11/25/18 05:30 133 H 13 129/70 95 11/25/18 05:00 71 14 129/70 129/70 98 11/25/18 04:30 73 14 125/62 98 11/25/18 04:00 72 14 128/66 128/66 98 11/25/18 03:30 73 14 131/66 99 11/25/18 03:24 96 H 13 133/73 98 08/13/19 03:16 71 133/73 99 11/25/18 03:13 97.6 F 11/25/18 03:00 82 14 133/73 99 11/25/18 02:00 72 14 124/60 99 11/25/18 01:00 72 14 123/61 99 11/25/18 00:00 71 14 121/60 99 11/24/18 23:55 72 121/62 99 11/24/18 23:33 70 11/24/18 23:31 98.4 F 11/24/18 23:00 70 14 118/62 99 11/24/18 22:00 82 14 122/61 99 11/24/18 21:00 96 H 14 108/63 99 11/24/18 20:30 94 H 14 111/62 99 11/24/18 20:00 98.9 F 80 14 141/59 100 11/24/18 19:30 88 14 122/72 100 11/24/18 19:00 118 H 20 130/64 100 11/24/18 18:55 97 H 130/64 100 11/24/18 18:30 99 H 20 130/64 99 11/24/18 18:00 110 H 23 117/64 99 11/24/18 17:30 101 H 19 117/64 100 11/24/18 17:00 132 H 20 99/66 99 11/24/18 16:30 97 H 17 106/66 100 11/24/18 16:00 99 F 101 H 21 106/66 100 11/24/18 15:54 95 H 17 97/67 100 11/24/18 15:30 86 17 97/67 99 11/24/18 15:00 90 16 99 11/24/18 14:30 94 H 19 110/59 99 11/24/18 14:00 94 H 18 110/59 100 11/24/18 13:30 117 H 24 110/60 100 11/24/18 13:00 100 H 18 106/61 99 11/24/18 12:30 113 H 19 106/61 100 11/24/18 12:02 106 H 17 102/60 100 11/24/18 12:00 98.3 F 103 H 22 102/60 100 - Physical Examination General: Other (on the vent) HEENT: Positive: PERRL Cardiac: Positive: irregularly irregular Neuro: Positive: Grossly Intact Extremities: Present: +1 Edema - Labs and Meds Comprehensive Metabolic Panel 11/25/18 Range/Units 05:40 Sodium 135 L (137-145) mmol/L Potassium 3.6 (3.6-5.0) mmol/L Chloride 94.5 L (98-107) mmol/L Carbon Dioxide 28 (22-30) mmol/L BUN 86 H (7-17) mg/dL Creatinine 5.4 H (0.7-1.2) mg/dL Glucose 118 H (65-100) mg/dL Calcium 7.9 L (8.4-10.2) mg/dL
--- NOTE | 2018-11-25 12:44 | Progress Note ---
Assessment and Plan Acute renal failure likely ischemic due to cardiac arrest Hypoxic respiratory failure on mechanical ventilation Acute on Chronic systolic heart failure with EF of 10-15 % Paroxysmal atrial fibrillation Hypokalemia - Cr and BUn slowly rising but good UOP - no indication for [employer] ADMINISTRATOR,creatinine clearance is pending, will consider HD if Cr clearance < 15 ml/min - No proteinruia, renal US negative for obstruction - Renally dose medications - Strict I&O monitoring - Obtain daily weights - Continue to monitor renal function - May need HD if no improvement in renal function - Continue to monitor closely Preet ajffe MD [phone] Subjective Date of service: 11/25/18 Principal diagnosis: blood in stool Interval history: intubated, no family at bedside. Objective - Vital Signs Vital signs: Vital Signs - 12hr 11/25/18 11/25/18 11/25/18 01:00 02:00 03:00 Temperature Pulse Rate 72 72 82 Respiratory 14 14 14 Rate Blood Pressure Blood Pressure 123/61 124/60 133/73 [Left] O2 Sat by Pulse 99 99 99 Oximetry 11/25/18 11/25/18 11/25/18 03:13 03:16 03:24 Temperature 97.6 F Pulse Rate 71 96 H Respiratory 13 Rate Blood Pressure 133/73 133/73 Blood Pressure [Left] O2 Sat by Pulse 99 98 Oximetry 11/25/18 11/25/18 11/25/18 03:30 04:00 04:30 Temperature Pulse Rate 73 72 73 Respiratory 14 14 14 Rate Blood Pressure 131/66 128/66 125/62 Blood Pressure 128/66 [Left] O2 Sat by Pulse 99 98 98 Oximetry 11/25/18 11/25/18 11/25/18 05:00 05:30 06:00 Temperature Pulse Rate 71 133 H 90 Respiratory 14 13 14 Rate Blood Pressure 129/70 129/70 124/78 Blood Pressure 129/70 131/68 [Left] O2 Sat by Pulse 98 95 98 Oximetry 11/25/18 11/25/18 11/25/18 06:30 07:00 07:12 Temperature Pulse Rate 93 H 74 81 Respiratory 14 14 Rate Blood Pressure 109/70 116/65 116/65 Blood Pressure [Left] O2 Sat by Pulse 98 99 100 Oximetry 11/25/18 11/25/18 11/25/18 07:15 07:30 08:00 Temperature 97.6 F Pulse Rate 92 H 90 94 H Respiratory 14 15 Rate Blood Pressure 116/65 116/71 116/71 Blood Pressure [Left] O2 Sat by Pulse 99 99 99 Oximetry 11/25/18 11/25/18 11/25/18 08:30 09:00 09:30 Temperature Pulse Rate 110 H 96 H 93 H Respiratory 21 18 16 Rate Blood Pressure 110/79 118/73 118/73 Blood Pressure [Left] O2 Sat by Pulse 99 97 98 Oximetry 11/25/18 11/25/18 11/25/18 10:00 10:30 11:00 Temperature Pulse Rate 95 H 85 105 H Respiratory 15 15 18 Rate Blood Pressure 101/68 99/67 104/64 Blood Pressure [Left] O2 Sat by Pulse 99 97 98 Oximetry 11/25/18 11/25/18 11:25 11:30 Temperature Pulse Rate 97 H 99 H Respiratory 18 Rate Blood Pressure 115/67 115/67 Blood Pressure [Left] O2 Sat by Pulse 97 98 Oximetry - General Appearance General appearance: well-developed, well-nourished, intubated EENT: ATNC, PERRL, mucous membranes dry Neck: no JVD, no carotid bruit Respiratory: Present: Decreased Breath Sounds Cardiology: regular, S1S2 Gastrointestinal: normoactive bowel sounds, no tenderness, no distended Integumentary: no rash, warm and dry Neurologic: other (intubated ) Musculoskeletal: other (trace pitting edema in BLE) Psychiatric: other (intubated) - Lab 11/22/18 05:35 11/25/18 05:40 Most recent lab results Calcium 7.9 mg/dL (8.4-10.2) L 11/25/18 05:40 Phosphorus 5.90 mg/dL (2.5-4.5) H 11/21/18 05:55 Magnesium 2.30 mg/dL (1.7-2.3) 11/20/18 22:20 102.6 mg/dL (0.1-20.0) H 11/16/18 09:26 103.3 mg/dL (0.1-20.0) H 11/16/18 09:26 28 mg/dL (5-11.8) H 11/16/18 09:26 Medications & Allergies - Medications Allergies/Adverse Reactions: Allergies lisinopril Allergy (Verified 02/24/18 09:15) Anaphylaxis Penicillins Allergy (Verified 02/24/18 09:15) Seizure Sulfa (Sulfonamide Antibiotics) Adverse Reaction (Verified 02/24/18 09:15) Hives Home Medications: Home Medications Medication Instructions Recorded Confirmed Last Taken Type Aspirin [Adult Aspirin] 81 mg PO DAILY 02/24/18 11/08/18 05/09/18 History Spironolactone [Aldactone] 25 mg PO QDAY 02/24/18 11/08/18 05/09/18 History buPROPion SR [Wellbutrin SR] 150 mg PO BID 02/24/18 11/08/18 05/09/18 History Albuterol Sulfate [Ventolin HFA] 1 puff IH Q6H PRN 30 Days 03/03/18 11/08/18 05/09/18 Rx hfa.aer.ad Cyclobenzaprine [Flexeril 10 MG 10 mg PO TID PRN 05/10/18 11/08/18 05/09/18 History TAB] Diphenhydramine HCl [Allergy 25 mg PO DAILY 05/10/18 11/08/18 05/09/18 History Relief] ISOSORBIDE MONOnitrate [Imdur ER] 60 mg PO QDAY 05/10/18 11/08/18 05/09/18 History Sertraline HCl [Zoloft] 50 mg PO DAILY 05/10/18 11/08/18 05/09/18 History hydrALAZINE [Apresoline TAB] 25 mg PO Q8HR 05/10/18 11/08/18 05/09/18 History Apixaban [Eliquis] 5 mg PO Q12HR #60 tablet 07/02/18 11/08/18 Unknown Rx Pantoprazole [Protonix TAB] 40 mg PO QDAY #30 tablet 07/02/18 11/08/18 Unknown Rx Polyethylene Glycol 3350 [Miralax 17 gm PO BID PRN #30 powd.pack 07/02/18 11/08/18 Unknown Rx 3350] Carvedilol [Coreg] 3.125 mg PO BID #60 tablet 09/10/18 11/08/18 Unknown Rx Magnesium Oxide [Mag-Ox] 400 mg PO QDAY #7 tablet 10/04/18 11/08/18 Unknown Rx Potassium Chloride [K-Dur] 20 meq PO QDAY #7 tablet 10/04/18 11/08/18 Unknown Rx Torsemide [Demadex] 40 mg PO BID #60 tablet 10/04/18 11/08/18 Unknown Rx metOLazone [Zaroxolyn] 5 mg PO QDAY #30 tablet 10/04/18 11/08/18 Unknown Rx Active Medications: Generic Name Dose Route Start Last Admin Trade Name Freq PRN Reason Stop Dose Admin Albuterol 2.5 mg 11/09/18 08:00 11/20/18 22:07 Proventil IH 2.5 mg Q4HRT PRN Administration Shortness Of Breath Amiodarone HCl 200 mg 11/10/18 22:00 11/25/18 09:34 Cordarone PO 200 mg BID RADHA Administration Lipase/Protease/Amylase 1 each 11/23/18 11:36 Pancreaze 10,500 Unit FEEDTUBE PRN PRN For Clogged Feeding Tube Aspirin 81 mg 11/09/18 10:00 11/25/18 09:33 Halfprin Ec PO 81 mg DAILY RADHA Administration Atorvastatin Calcium 40 mg 11/11/18 22:00 11/24/18 21:42 Lipitor PO 40 mg QHS RADHA Administration Bupropion HCl 150 mg 11/21/18 10:00 11/25/18 09:33 Wellbutrin PO 150 mg BID RADHA Administration Dextrose 50 ml 11/20/18 21:45 D50w (25gm) Syringe IV PRN PRN Hypoglycemia Furosemide 80 mg 11/23/18 18:00 11/25/18 09:32 Lasix IV 80 mg Q8H RADHA Administration Hydromorphone HCl 0.5 mg 11/19/18 11:21 11/24/18 21:43 Dilaudid IV 0.5 mg Q3H PRN Administration Pain , Severe (7-10) Hydrophilic Ointment 1 applic 11/20/18 20:27 Vaseline Lip Therapy TP Q2HR PRN Dry Lips Norepinephrine 4 mg in 250 mls @ 7.5 mls/hr 11/20/18 21:00 11/22/18 21:15 Levophed Drip 4 Mg/Ns 250 Ml IV 2 mcg/min TITR RADHA 7.5 mls/hr Titration Protocol 2 MCG/MIN Propofol 1,000 mg in 100 mls @ 3.648 mls/hr 11/20/18 21:00 11/24/18 17:48 Diprivan 10 Mg/Ml IV 0 mcg/kg/min TITR RADHA 0 mls/hr Titration Protocol 5 MCG/KG/MIN Dobutamine HCl/Dextrose 500 mg in 250 mls @ 9.12 mls/hr 11/21/18 11:00 11/24/18 17:47 Dobutrex Drip 500mg/D5w 250ml IV 2.5 mcg/kg/min DIRECT RADHA 9.12 mls/hr Administration Protocol 2.5 MCG/KG/MIN Lansoprazole 30 mg 11/24/18 10:00 11/25/18 09:34 Prevacid Solutab FEEDTUBE 30 mg QDAY RADHA Administration Metoprolol Tartrate 2.5 mg 11/21/18 09:18 Lopressor IV Q6HR PRN Tachyarrhythmias Midazolam HCl 2 mg 11/20/18 20:27 11/21/18 04:08 Versed IV 2 mg Q10MIN PRN Administration Sedation Multi-Ingred Cream/Lotion/Oil/Oint 1 applic 11/20/18 20:27 Artificial Tears Ophth Oint OU Q4HR PRN Dry Eye(s) Ondansetron HCl 4 mg 11/11/18 13:44 11/25/18 09:35 Zofran IV 4 mg Q8H PRN Administration Nausea And Vomiting Polyethylene Glycol 17 gm 11/09/18 10:00 Miralax 3350 PO BID PRN Constipation Sertraline HCl 50 mg 11/09/18 10:00 11/25/18 09:34 Zoloft PO 50 mg DAILY RADHA Administration Simethicone 80 mg 11/12/18 11:49 11/15/18 04:05 Mylicon PO 80 mg Q6H PRN Administration Gas pain Simple Syrup 15 ml 11/23/18 11:36 Simple Syrup FEEDTUBE PRN PRN Hypoglycemia Simple Syrup 30 ml 11/23/18 11:36 Simple Syrup FEEDTUBE PRN PRN Hypoglycemia Sodium Bicarbonate 325 mg 11/23/18 11:36 Sodium Bicarbonate FEEDTUBE PRN PRN For Clogged Feeding Tube Sucralfate 1 gm 11/12/18 16:30 11/25/18 08:33 Carafate PO 1 gm ACHS RADHA Administration
--- NOTE | 2018-11-25 16:11 | Progress Note ---
Assessment and Plan Assessment and plan: Patient is Patient is a 68 year old -[place] female who was initially admitted for acute on chronic systolic heart failure. She was managed with IV milrinone drip and IV bumex by cardiology. The drip was discontinued on 11/13 while the IV Bumex was changed to oral on 11/14. she coded and was successfully resuscitated and transferred to the ICU S/p cardiac arrest x2 -Successfully resuscitated -patient arrested again on 11/20 Acute on chronic respiratory failure with hypoxia on MV > 96 hours extubated on 11/16, care per pulmonology reintubated on 11/20 after second cardiac arrest, cont MV, mgt per pulmonology cardiogenic Shock on pressors, on dobutamine drip, Acute on Chronic systolic heart failure with EF of 10-15 % mgt per cardiology, on dobutamine drip, and diuretics as tolerated ACUTE GI BLEED Most likely due to ischemic colitis from cardiac arrest, patient is too unstable for any intervention at this time, hemoglobin stable follow h/h closely Paroxysmal atrial fibrillation -Rate currently controlled, meds per cardiology -eliquis now on hold given gi bleed Hx of LUE DVT -eliquis on hold due to gi bleed Hx of coronary artery disease -cardiac cath 03/2018 revealed patent SVG to LAD, patent SVG to OM, patent SVG to PDA and patent diagonal stent, LVEF 10-15%. -Continue medical management KERWIN, likely vasomotor nephropathy, ATN and/diuretic use Management as per nephrology, worsening, may need HD if does not improve COPD, chronic and stable Tobacco abuse -Patient counseled on cessation > 11 minutes Morbid obesity with BMI of 43.4 -Lifestyle modification recommended -preventative health counseling >17 minutes Prognosis is very poor. Cardiac arrest 2 and multiorgan failure, Family meeting this morning with patient, Dr. Garrett Rhodes and myself. Proceed for tracheostomy this week. Critical care time 32 minutes History Interval history: Patient was seen and examined. Follow-up on current diagnosis of Respiratory fa ilure. No overnight events reported to me. Patient nodding her head to questions while on Mechanical Ventilator. Imaging, nursing note, chart, labs and old chart reviewed. Discussed with patient. Gen: ill appearing, intubated, bmi 43.3 HEENT: NCAT, EOMI, PERRL, OP Clear Neck: supple, no adenopathy, no thyromegaly, no JVD CVS/Heart: RRR, normal S1S2, pulses present bilaterally Chest/Lungs: Bibasilar Rales Symmetrical chest expansion, good air entry bilaterally GI/Abdomen: soft, NTND, good bowel sounds, no guarding or rebound /Bladder: no suprapubic tenderness, no CVA or paraspinal tenderness Extermity/Skin: dependent edema x 4 MSK: FROM x 4 Neuro: CN 2-12 grossly intact, no new focal deficits Psych: calm Hospitalist Physical - Constitutional Vitals: Temp Pulse Resp BP Pulse Ox 97.6 F 93 H 15 128/68 100 11/25/18 08:00 11/25/18 15:00 11/25/18 15:00 11/25/18 15:00 11/25/18 15:00 General appearance: Present: other (intubated) Results - Labs CBC & Chem 7: 11/22/18 05:35 11/25/18 05:40 Labs: Laboratory Last Values WBC 10.9 K/mm3 (4.5-11.0) 11/22/18 05:35 RBC 3.00 M/mm3 (3.65-5.03) L 11/22/18 05:35 Hgb 10.3 gm/dl (10.1-14.3) 11/22/18 05:35 Hct 30.5 % (30.3-42.9) D 11/22/18 05:35 MCV 102 fl (79-97) H 11/22/18 05:35 MCH 34 pg (28-32) H 11/22/18 05:35 MCHC 34 % (30-34) 11/22/18 05:35 RDW 17.2 % (13.2-15.2) H 11/22/18 05:35 Plt Count 190 K/mm3 (140-440) 11/22/18 05:35 Lymph % (Auto) 4.0 % (13.4-35.0) L 11/19/18 06:48 [place] % (Auto) 6.1 % (0.0-7.3) 11/19/18 06:48 Eos % (Auto) 0.0 % (0.0-4.3) 11/19/18 06:48 Baso % (Auto) 0.6 % (0.0-1.8) 11/19/18 06:48 Lymph # 0.3 K/mm3 (1.2-5.4) L 11/19/18 06:48 [place] # 0.5 K/mm3 (0.0-0.8) 11/19/18 06:48 Eos # 0.0 K/mm3 (0.0-0.4) 11/19/18 06:48 Baso # 0.0 K/mm3 (0.0-0.1) 11/19/18 06:48 Add Manual Diff Complete 11/22/18 05:35 Total Counted 100 11/22/18 05:35 Seg Neutrophils % Research Technician 11/22/18 05:35 Seg Neuts % (Manual) 89.0 % (40.0-70.0) H 11/22/18 05:35 1.0 % 11/22/18 05:35 2.0 % (13.4-35.0) L 11/22/18 05:35 Reactive Lymphs % (Man) 0 % 11/22/18 05:35 8.0 % (0.0-7.3) H 11/22/18 05:35 0 % (0.0-4.3) 11/22/18 05:35 0 % (0.0-1.8) 11/22/18 05:35 0 % 11/22/18 05:35 0 % 11/22/18 05:35 0 % 11/22/18 05:35 0 % 11/22/18 05:35 Nucleated RBC % Not Reportable 11/22/18 05:35 Seg Neutrophils # 7.4 K/mm3 (1.8-7.7) 11/19/18 06:48 Seg Neutrophils # Man 9.7 K/mm3 (1.8-7.7) H 11/22/18 05:35 Band Neutrophils # 0.1 K/mm3 11/22/18 05:35 0.2 K/mm3 (1.2-5.4) L 11/22/18 05:35 Abs React Lymphs (Man) 0.0 K/mm3 11/22/18 05:35 0.9 K/mm3 (0.0-0.8) H 11/22/18 05:35 0.0 K/mm3 (0.0-0.4) 11/22/18 05:35 0.0 K/mm3 (0.0-0.1) 11/22/18 05:35 0.0 K/mm3 11/22/18 05:35 0.0 K/mm3 11/22/18 05:35 0.0 K/mm3 11/22/18 05:35 Blast Cells # 0.0 K/mm3 11/22/18 05:35 WBC Morphology Not Reportable 11/22/18 05:35 Hypersegmented Neuts Not Reportable 11/22/18 05:35 Hyposegmented Neuts Not Reportable 11/22/18 05:35 Hypogranular Neuts Not Reportable 11/22/18 05:35 Not Reportable 11/22/18 05:35 Not Reportable 11/22/18 05:35 Not Reportable 11/22/18 05:35 Not Reportable 11/22/18 05:35 Not Reportable 11/22/18 05:35 Not Reportable 11/22/18 05:35 Consistent w auto 11/22/18 05:35 Not Reportable 11/22/18 05:35 Plt Clumps, EDTA Not Reportable 11/22/18 05:35 Not Reportable 11/22/18 05:35 Not Reportable 11/22/18 05:35 Not Reportable 11/22/18 05:35 Plt Morphology Comment Not Reportable 11/22/18 05:35 RBC Morphology Not Reportable 11/22/18 05:35 Dimorphic RBCs Not Reportable 11/22/18 05:35 Not Reportable 11/22/18 05:35 Not Reportable 11/22/18 05:35 1+ 11/22/18 05:35 1+ 11/22/18 05:35 Not Reportable 11/22/18 05:35 1+ 11/22/18 05:35 Not Reportable 11/22/18 05:35 Not Reportable 11/22/18 05:35 Not Reportable 11/22/18 05:35 Not Reportable 11/22/18 05:35 Not Reportable 11/22/18 05:35 Few 11/22/18 05:35 Not Reportable 11/22/18 05:35 Not Reportable 11/22/18 05:35 Not Reportable 11/22/18 05:35 Not Reportable 11/22/18 05:35 Not Reportable 11/22/18 05:35 Not Reportable 11/22/18 05:35 Few 11/22/18 05:35 Acanthocytes (Spur) Not Reportable 11/22/18 05:35 Rouleaux Not Reportable 11/22/18 05:35 Not Reportable 11/22/18 05:35 Not Reportable 11/22/18 05:35 Not Reportable 11/22/18 05:35 Not Reportable 11/22/18 05:35 Hem Pathologist Commnt No 11/22/18 05:35 PT 23.2 Sec. (12.2-14.9) H 11/19/18 Unknown INR 2.11 (0.87-1.13) H 11/19/18 Unknown APTT 28.5 Sec. (24.2-36.6) 11/15/18 18:41 POC ABG pH 7.453 (7.35-7.45) H 11/25/18 03:57 POC ABG pCO2 38.2 (35-45) 11/25/18 03:57 POC ABG pO2 96 (80-105) 11/25/18 03:57 POC ABG HCO3 26.8 (22-26 mml/L) 11/25/18 03:57 POC ABG Total CO2 28 (23-27mmol/L) 11/25/18 03:57 POC ABG O2 Sat 98 11/25/18 03:57 POC ABG Base Excess 3 ((-2) - (+3)mmol/L) 11/25/18 03:57 30 % 11/25/18 03:57 Sodium 135 mmol/L (137-145) L 11/25/18 05:40 Potassium 3.6 mmol/L (3.6-5.0) 11/25/18 05:40 Chloride 94.5 mmol/L (98-107) L 11/25/18 05:40 Carbon Dioxide 28 mmol/L (22-30) 11/25/18 05:40 16 mmol/L 11/25/18 05:40 BUN 86 mg/dL (7-17) H 11/25/18 05:40 5.4 mg/dL (0.7-1.2) H 11/25/18 05:40 Estimated GFR 10 ml/min 11/25/18 05:40 16 % 08/13/19 05:40 Glucose 118 mg/dL (65-100) H 11/25/18 05:40 POC Glucose 140 (70-105) H 11/25/18 05:18 Lactic Acid 1.50 mmol/L (0.7-2.0) 11/21/18 13:25 Calcium 7.9 mg/dL (8.4-10.2) L 11/25/18 05:40 Phosphorus 5.90 mg/dL (2.5-4.5) H 11/21/18 05:55 Magnesium 2.30 mg/dL (1.7-2.3) 11/20/18 22:20 0.50 mg/dL (0.1-1.2) 11/20/18 Unknown AST 57 units/L (5-40) H 11/20/18 Unknown ALT 25 units/L (7-56) 11/20/18 Unknown 53 units/L (35-129) 11/20/18 Unknown 293 units/L (30-135) H 11/15/18 18:41 CK-MB (CK-2) 5.6 ng/mL (0.0-4.0) H 11/15/18 18:41 CK-MB (CK-2) Rel Index 1.9 (0-4) 11/15/18 18:41 3.550 ng/mL (0.00-0.029) H* 11/20/18 22:20 4.2 g/dL (6.3-8.2) L 11/20/18 Unknown 2.3 g/dL (3.9-5) L 11/20/18 Unknown 1.2 % 11/20/18 Unknown Triglycerides 107 mg/dL (2-149) 11/08/18 03:09 Cholesterol 176 mg/dL (50-199) 11/08/18 03:09 137 mg/dL (50-130) H 11/08/18 03:09 33 mg/dL (40-59) L 11/08/18 03:09 5.33 % 11/08/18 03:09 11 units/L (13-60) L 11/13/18 05:38 Yellow (Yellow) 11/16/18 09:26 Slightly-cloudy (Clear) 11/16/18 09:26 7.0 (5.0-7.0) 11/16/18 09:26 Ur Specific [place] 1.014 (1.003-1.030) 11/16/18 09:26 <15 mg/dl mg/dL (Negative) 11/16/18 09:26 Neg mg/dL (Negative) 11/16/18 09:26 Tr mg/dL (Negative) 11/16/18 09:26 Neg (Negative) 11/16/18 09:26 Neg (Negative) 11/16/18 09:26 Neg (Negative) 11/16/18 09:26 < 2.0 mg/dL (<2.0) 11/16/18 09:26 Ur Leukocyte Esterase Neg (Negative) 11/16/18 09:26 2.0 /HPF (0.0-6.0) 11/16/18 09:26 1.0 /HPF (0.0-6.0) 11/16/18 09:26 U Epithel Cells (Auto) < 1.0 /HPF (0-13.0) 11/16/18 09:26 2+ /HPF (Negative) 11/16/18 09:26 Few /HPF 11/16/18 09:26 102.6 mg/dL (0.1-20.0) H 11/16/18 09:26 103.3 mg/dL (0.1-20.0) H 11/16/18 09:26 Protein/Creatinin Ratio 0.27 11/16/18 09:26 28 mg/dL (5-11.8) H 11/16/18 09:26 Blood Type O POSITIVE 11/19/18 Unknown Antibody Screen Negative 11/19/18 Unknown Active Medications - Current Medications Current Medications: Generic Name Dose Route Start Last Admin Trade Name Freq PRN Reason Stop Dose Admin Albuterol 2.5 mg 11/09/18 08:00 11/20/18 22:07 Proventil IH 2.5 mg Q4HRT PRN Administration Shortness Of Breath Amiodarone HCl 200 mg 11/10/18 22:00 11/25/18 09:34 Cordarone PO 200 mg BID RADHA Administration Lipase/Protease/Amylase 1 each 11/23/18 11:[address] 10,500 Unit FEEDTUBE PRN PRN For Clogged Feeding Tube Aspirin 81 mg 11/09/18 10:00 11/25/18 09:33 Halfprin Ec PO 81 mg DAILY RADHA Administration Atorvastatin Calcium 40 mg 11/11/18 22:00 11/24/18 21:42 Lipitor PO 40 mg QHS RADHA Administration Bupropion HCl 150 mg 11/21/18 10:00 11/25/18 09:33 Wellbutrin PO 150 mg BID RADHA Administration Dextrose 50 ml 11/20/18 21:45 D50w (25gm) Syringe IV PRN PRN Hypoglycemia Furosemide 80 mg 11/23/18 18:00 11/25/18 09:32 Lasix IV 80 mg Q8H RADHA Administration Hydromorphone HCl 0.5 mg 11/19/18 11:21 11/24/18 21:43 Dilaudid IV 0.5 mg Q3H PRN Administration Pain , Severe (7-10) Hydrophilic Ointment 1 applic 11/20/18 20:27 Vaseline Lip Therapy TP Q2HR PRN Dry Lips Norepinephrine 4 mg in 250 mls @ 7.5 mls/hr 11/20/18 21:00 11/22/18 21:15 Levophed Drip 4 Mg/Ns 250 Ml IV 2 mcg/min TITR RADHA 7.5 mls/hr Titration Protocol 2 MCG/MIN Propofol 1,000 mg in 100 mls @ 3.648 mls/hr 11/20/18 21:00 11/24/18 17:48 Diprivan 10 Mg/Ml IV 0 mcg/kg/min TITR RADHA 0 mls/hr Titration Protocol 5 MCG/KG/MIN Dobutamine HCl/Dextrose 500 mg in 250 mls @ 9.12 mls/hr 11/21/18 11:00 11/24/18 17:47 Dobutrex Drip 500mg/D5w 250ml IV 2.5 mcg/kg/min DIRECT RADHA 9.12 mls/hr Administration Protocol 2.5 MCG/KG/MIN Lansoprazole 30 mg 11/24/18 10:00 11/25/18 09:34 Prevacid Solutab FEEDTUBE 30 mg QDAY RADHA Administration Metoprolol Tartrate 2.5 mg 11/21/18 09:18 Lopressor IV Q6HR PRN Tachyarrhythmias Midazolam HCl 2 mg 11/20/18 20:27 11/21/18 04:08 Versed IV 2 mg Q10MIN PRN Administration Sedation Multi-Ingred Cream/Lotion/Oil/Oint 1 applic 11/20/18 20:27 Artificial Tears Ophth Oint OU Q4HR PRN Dry Eye(s) Ondansetron HCl 4 mg 11/11/18 13:44 11/25/18 09:35 Zofran IV 4 mg Q8H PRN Administration Nausea And Vomiting Polyethylene Glycol 17 gm 11/09/18 10:00 Miralax 3350 PO BID PRN Constipation Sertraline HCl 50 mg 11/09/18 10:00 11/25/18 09:34 Zoloft PO 50 mg DAILY ARDHA Administration Simethicone 80 mg 11/12/18 11:49 11/15/18 04:05 Mylicon PO 80 mg Q6H PRN Administration Gas pain Simple Syrup 15 ml 11/23/18 11:36 Simple Syrup FEEDTUBE PRN PRN Hypoglycemia Simple Syrup 30 ml 11/23/18 11:36 Simple Syrup FEEDTUBE PRN PRN Hypoglycemia Sodium Bicarbonate 325 mg 11/23/18 11:36 Sodium Bicarbonate FEEDTUBE PRN PRN For Clogged Feeding Tube Sucralfate 1 gm 11/12/18 16:30 11/25/18 08:33 Carafate PO 1 gm ACHS RADHA Administration Nutrition/Malnutrition Assess - Dietary Evaluation Nutrition/Malnutrition Findings: Nutrition Notes Start: 11/14/18 15:47 Freq: Status: Active Protocol: Document 11/24/18 14:56 RM (Rec: 11/24/18 14:59 RM [id number]) Nutrition Notes Initial or Follow up Reassessment Current Diagnosis Acute Kidney Injury,Coronary Artery Disease,Heart Failure Other Pertinent Diagnosis cardiac arrest Current Diet Vital 1.2 at 20 ml/hr Labs/Tests K 3.1 Pertinent Medications Lasix, Levophed, Zofran Height 5 ft 7 in Weight 128 kg [place] Body Weight (kg) 61.36 BMI 44.1 Weight change and time frame Noted wt increase. Likely d/t fluid change or added wt from bedding. Subjective/Other Information Consulted for TF recommendation. MD ordered Vital 1.2 as placeholder. Burn Absent Trauma Absent #1 Nutrition Diagnosis Inadequate oral intake Diagnosis Progress(for reassessment Continues documentation) Is patient on ventilator? No Is Patient Ambulatory and/or Out of Bed No REE-([place]-confined to bed) 2210.244 Kcal/Kg value to use for calculation 14 Approximate Energy Requirements Using 1792 kcal/Kg Calculation Used for Recommendations Kcal/kg Additional Notes Protein Needs: 153g (2.5g/kg IBW) Fluid Needs: 1 ml/kcal Nutrition Intervention Change Diet Order: TF consult Nutrition Support: Vital 1.2 at 60 ml/hr Water flush of 100 mls q 4 hrs Protein provided by TF is restricted to protect kidney function Kcal 1,728 Carbohydrates (gm) 108 Fluid (mL) 1,168 Goal #1 TF tolerance Goal #2 Meet calorie and nutritional needs as best possible Anticipated Discharge Needs: Unable to determine at this time Follow-Up By: 11/26/18 Additional Comments Follow for new TF
[2018-11-25 16:48] LABS: Creatinine 24 Hour,Urine 0.4 (0.8-2.8); Creatinine,Urine 28.7 mg/dL (0.1-20.0)
[2018-11-25] MEDS: DOBUTREX DRIP 500MG/D5W 250ML 500 MG/250 ML BAG IV SCH (22:23)
[2018-11-26] MEDS: LASIX IV SCH ×3 (01:56→18:05)
--- NOTE | 2018-11-26 03:07 | XRay Report ---
CHEST - 1 VIEW INDICATION: follow up respiratory failure COMPARISON: Yesterday FINDINGS: Support devices: Stable support device positioning. Heart: Stable cardiomediastinal silhouette. Lungs/pleura: Persistent mild edema. Additional findings: None. IMPRESSION: Unchanged exam. Signer Name: Syd Klein MD Signed: 11/26/2018 3:03 AM Workstation Name: [id number]
[2018-11-26] MEDS: DILAUDID IV PRN ×3 (04:37→21:35)
[2018-11-26 05:23] LABS: ABG Base Excess 3.3 mmol/L (-2.0-3.0); ABG HCO3 27.8 mmol/L (20.0-26.0); ABG Methemoglobin 0.4 % (0.0-1.5); ABG Oxygen Saturation 97.4 % (95.0-99.0); ABG PCO2 41.7 mm Hg; ABG PH 7.441 pH Units (7.350-7.450); ABG PO2 94.7 mm Hg (80.0-90.0)
[2018-11-26 06:22] LABS: Hematocrit 31.3 % (30.3-42.9); Hemoglobin 10.5 gm/dl (10.1-14.3); Mean Corpuscular HGB Conc 34 % (30-34); Mean Corpuscular Volume 101 fl (79-97); Platelet Count 149 K/mm3 (140-440); Red Cell Distribution Width 16.6 % (13.2-15.2)
[2018-11-26 06:46] LABS: Calcium 8.1 mg/dL (8.4-10.2)
[2018-11-26] MEDS ORDERED: POTASSIUM CHLORIDE FEEDTUBE ONE (09:00)
[2018-11-26] MEDS: HALFPRIN EC PO SCH (09:30)
[2018-11-26] MEDS: WELLBUTRIN PO SCH ×2 (09:31→21:31)
[2018-11-26] MEDS: CORDARONE PO SCH ×2 (09:31→21:31)
[2018-11-26] MEDS: PREVACID SOLUTAB FEEDTUBE SCH (09:31)
[2018-11-26] MEDS: ZOLOFT PO SCH (09:31)
[2018-11-26] MEDS: CARAFATE PO SCH ×4 (09:31→21:35)
--- NOTE | 2018-11-26 09:59 | Progress Note ---
Assessment and Plan 68 y/o female with known systolic heart failure, admitted post cardiac arrest, intubated, awake and alert. 1. Surgery deciding about trach and peg. Patient is morbidly obese so may be difficult for PEG. If not, may need to ask GI. 2. Renal has no plan for lasix drip. Follow up their recs from today. 3. Follow up any new cardiology recs, nursing asking about dobutamine. 4. Continue PSV trials as tolerated 5. Given the fact that she may have invasive therapies procedures, will hold on anticoagulation for now. SCD's only. 6. Stop daily ABG's and Daily CXR's CCT 31 minutes. Subjective Date of service: 11/26/18 Principal diagnosis: blood in stool Interval history: No acute events overnight. Remains on Dobutamine. Awake and on the VENT. ABG is good. No family present. Objective Vital Signs - 12hr 11/25/18 11/25/18 11/25/18 22:00 22:30 23:00 Temperature Pulse Rate 77 71 66 Respiratory 14 14 14 Rate Blood Pressure 119/68 122/65 123/63 O2 Sat by Pulse 98 98 98 Oximetry 11/25/18 11/25/18 11/26/18 23:30 23:59 00:00 Temperature 98.1 F Pulse Rate 74 73 Respiratory 12 14 Rate Blood Pressure 127/63 127/63 O2 Sat by Pulse 97 97 Oximetry 11/26/18 11/26/18 11/26/18 00:30 00:38 01:01 Temperature Pulse Rate 75 70 78 Respiratory 14 14 Rate Blood Pressure 118/61 118/61 115/64 O2 Sat by Pulse 97 98 97 Oximetry 11/26/18 11/26/18 11/26/18 01:30 02:00 02:31 Temperature Pulse Rate 76 75 76 Respiratory 13 14 15 Rate Blood Pressure 107/65 94/64 107/62 O2 Sat by Pulse 98 99 98 Oximetry 11/26/18 11/26/18 11/26/18 03:00 03:31 04:00 Temperature 98.8 F Pulse Rate 71 70 Respiratory 14 14 Rate Blood Pressure 98/65 97/58 O2 Sat by Pulse 98 98 Oximetry 11/26/18 11/26/18 11/26/18 04:01 04:21 04:31 Temperature Pulse Rate 70 70 75 Respiratory 14 15 Rate Blood Pressure 97/58 113/62 109/67 O2 Sat by Pulse 98 98 99 Oximetry 11/26/18 11/26/18 11/26/18 05:00 05:30 06:00 Temperature Pulse Rate 72 70 73 Respiratory 14 12 14 Rate Blood Pressure 106/67 103/64 88/61 O2 Sat by Pulse 98 98 99 Oximetry 11/26/18 11/26/18 11/26/18 06:31 07:01 07:10 Temperature Pulse Rate 78 71 72 Respiratory 14 14 Rate Blood Pressure 96/66 105/63 105/63 O2 Sat by Pulse 100 99 99 Oximetry 11/26/18 11/26/18 11/26/18 07:30 08:00 08:01 Temperature 97.1 F L Pulse Rate 129 H 107 H Respiratory 18 18 Rate Blood Pressure 101/67 106/74 O2 Sat by Pulse 96 97 Oximetry 11/26/18 08:56 Temperature 97.1 F L Pulse Rate Respiratory Rate Blood Pressure O2 Sat by Pulse Oximetry Constitutional: no acute distress, alert, other (obese) Eyes: non-icteric ENT: oropharynx moist Neck: supple Effort: normal Ascultation: Bilateral: clear (anteriorly, decreased due to obesity) Percussion: Bilateral: not dull Cardiovascular: regular rate and rhythm (no mrg) Gastrointestinal: normoactive bowel sounds, soft, non-tender, non-distended Integumentary: normal Extremities: pink and warm, edema (2+ bilateral LE edema) Neurologic: normal mental status, non-focal exam, pupils equal and round, CN II- XII normal Psychiatric: mood appropriate, affect normal CBC and BMP: 11/26/18 05:30 11/26/18 05:40 ABG, PT/INR, D-dimer: ABG POC ABG pH 7.453 (7.35-7.45) H 11/25/18 03:57 ABG pH 7.441 pH Units (7.350-7.450) 11/26/18 04:25 POC ABG pCO2 38.2 (35-45) 11/25/18 03:57 ABG pCO2 41.7 mm Hg 11/26/18 04:25 POC ABG pO2 96 (80-105) 11/25/18 03:57 ABG pO2 94.7 mm Hg (80.0-90.0) H 11/26/18 04:25 POC ABG HCO3 26.8 (22-26 mml/L) 11/25/18 03:57 POC ABG Total CO2 28 (23-27mmol/L) 11/25/18 03:57 POC ABG O2 Sat 98 11/25/18 03:57 ABG O2 Saturation 97.4 % (95.0-99.0) 11/26/18 04:25 PT/INR, D-dimer PT 23.2 Sec. (12.2-14.9) H 11/19/18 Unknown INR 2.11 (0.87-1.13) H 11/19/18 Unknown Abnormal lab findings: Abnormal Labs 11/08/18 11/08/18 11/08/18 03:09 03:09 05:50 WBC RBC 3.37 L MCV 106 H MCH 34 H RDW 17.1 H Lymph % (Auto) 4.6 L [place] % (Auto) 11.5 H Lymph # 0.2 L Seg Neutrophils % 83.0 H Seg Neuts % (Manual) Lymphocytes % (Manual) Monocytes % (Manual) Nucleated RBC % Seg Neutrophils # Man Lymphocytes # (Manual) Monocytes # (Manual) PT INR POC ABG pH POC ABG pCO2 POC ABG pO2 ABG pO2 ABG HCO3 ABG Base Excess Sodium 135 L Potassium Chloride Carbon Dioxide BUN 29 H Creatinine 1.4 H Glucose POC Glucose Lactic Acid Calcium 8.1 L Phosphorus AST Total Creatine Kinase CK-MB (CK-2) Troponin T 0.042 H 0.039 H Total Protein Albumin LDL Cholesterol Direct 137 H HDL Cholesterol 33 L Lipase Urine Creatinine Ur Creatinine 24 Hour Urine Total Protein 11/10/18 11/10/18 11/10/18 05:47 07:32 13:08 WBC RBC MCV MCH RDW Lymph % (Auto) [place] % (Auto) Lymph # Seg Neutrophils % Seg Neuts % (Manual) Lymphocytes % (Manual) Monocytes % (Manual) Nucleated RBC % Seg Neutrophils # Man Lymphocytes # (Manual) Monocytes # (Manual) PT INR POC ABG pH POC ABG pCO2 POC ABG pO2 ABG pO2 ABG HCO3 ABG Base Excess Sodium Potassium Chloride Carbon Dioxide 32 H BUN 25 H Creatinine Glucose 104 H POC Glucose 115 H 142 H Lactic Acid Calcium 7.9 L Phosphorus AST Total Creatine Kinase CK-MB (CK-2) Troponin T Total Protein Albumin LDL Cholesterol Direct HDL Cholesterol Lipase Urine Creatinine Ur Creatinine 24 Hour Urine Total Protein 11/10/18 11/10/18 11/11/18 16:55 21:21 07:51 WBC RBC MCV MCH RDW Lymph % (Auto) [place] % (Auto) Lymph # Seg Neutrophils % Seg Neuts % (Manual) Lymphocytes % (Manual) Monocytes % (Manual) Nucleated RBC % Seg Neutrophils # Man Lymphocytes # (Manual) Monocytes # (Manual) PT INR POC ABG pH POC ABG pCO2 POC ABG pO2 ABG pO2 ABG HCO3 ABG Base Excess Sodium Potassium Chloride Carbon Dioxide BUN Creatinine Glucose POC Glucose 125 H 126 H 118 H Lactic Acid Calcium Phosphorus AST Total Creatine Kinase CK-MB (CK-2) Troponin T Total Protein Albumin LDL Cholesterol Direct HDL Cholesterol Lipase Urine Creatinine Ur Creatinine 24 Hour Urine Total Protein 11/11/18 11/11/18 11/12/18 12:25 21:32 07:46 WBC RBC MCV MCH RDW Lymph % (Auto) [place] % (Auto) Lymph # Seg Neutrophils % Seg Neuts % (Manual) Lymphocytes % (Manual) Monocytes % (Manual) Nucleated RBC % Seg Neutrophils # Man Lymphocytes # (Manual) Monocytes # (Manual) PT INR POC ABG pH POC ABG pCO2 POC ABG pO2 ABG pO2 ABG HCO3 ABG Base Excess Sodium Potassium Chloride 97.7 L Carbon Dioxide BUN 28 H Creatinine Glucose POC Glucose 125 H 126 H Lactic Acid Calcium 8.0 L Phosphorus AST Total Creatine Kinase CK-MB (CK-2) Troponin T Total Protein Albumin LDL Cholesterol Direct HDL Cholesterol Lipase Urine Creatinine Ur Creatinine 24 Hour Urine Total Protein 11/12/18 11/12/18 11/13/18 08:57 11:35 05:38 WBC RBC MCV MCH RDW Lymph % (Auto) [place] % (Auto) Lymph # Seg Neutrophils % Seg Neuts % (Manual) Lymphocytes % (Manual) Monocytes % (Manual) Nucleated RBC % Seg Neutrophils # Man Lymphocytes # (Manual) Monocytes # (Manual) PT INR POC ABG pH POC ABG pCO2 POC ABG pO2 ABG pO2 ABG HCO3 ABG Base Excess Sodium Potassium Chloride 97.3 L Carbon Dioxide 31 H BUN 33 H Creatinine 1.5 H Glucose 111 H POC Glucose 120 H 137 H Lactic Acid Calcium 7.8 L Phosphorus AST Total Creatine Kinase CK-MB (CK-2) Troponin T Total Protein Albumin LDL Cholesterol Direct HDL Cholesterol Lipase Urine Creatinine Ur Creatinine 24 Hour Urine Total Protein 11/13/18 11/14/18 11/15/18 05:38 06:07 06:11 WBC RBC MCV MCH RDW Lymph % (Auto) [place] % (Auto) Lymph # Seg Neutrophils % Seg Neuts % (Manual) Lymphocytes % (Manual) Monocytes % (Manual) Nucleated RBC % Seg Neutrophils # Man Lymphocytes # (Manual) Monocytes # (Manual) PT INR POC ABG pH POC ABG pCO2 POC ABG pO2 ABG pO2 ABG HCO3 ABG Base Excess Sodium 135 L Potassium Chloride 96.8 L Carbon Dioxide BUN 36 H Creatinine 1.9 H Glucose 117 H POC Glucose 128 H Lactic Acid Calcium 8.2 L Phosphorus AST Total Creatine Kinase CK-MB (CK-2) Troponin T Total Protein Albumin LDL Cholesterol Direct HDL Cholesterol Lipase 11 L Urine Creatinine Ur Creatinine 24 Hour Urine Total Protein 11/15/18 11/15/18 11/15/18 08:50 18:41 18:41 WBC RBC 3.51 L MCV 103 H MCH 34 H RDW 17.4 H Lymph % (Auto) 3.3 L [place] % (Auto) 9.2 H Lymph # 0.2 L Seg Neutrophils % 87.2 H Seg Neuts % (Manual) Lymphocytes % (Manual) Monocytes % (Manual) Nucleated RBC % Seg Neutrophils # Man Lymphocytes # (Manual) Monocytes # (Manual) PT INR POC ABG pH 7.533 H POC ABG pCO2 33.9 L POC ABG pO2 237 H ABG pO2 ABG HCO3 ABG Base Excess Sodium 136 L Potassium Chloride 95.3 L Carbon Dioxide BUN 46 H Creatinine 2.3 H Glucose POC Glucose Lactic Acid Calcium 8.3 L Phosphorus AST Total Creatine Kinase CK-MB (CK-2) Troponin T Total Protein 4.6 L Albumin 1.8 L LDL Cholesterol Direct HDL Cholesterol Lipase Urine Creatinine Ur Creatinine 24 Hour Urine Total Protein 11/15/18 11/15/18 11/16/18 18:41 18:41 03:53 WBC RBC MCV MCH RDW Lymph % (Auto) [place] % (Auto) Lymph # Seg Neutrophils % Seg Neuts % (Manual) Lymphocytes % (Manual) Monocytes % (Manual) Nucleated RBC % Seg Neutrophils # Man Lymphocytes # (Manual) Monocytes # (Manual) PT 18.6 H INR 1.59 H POC ABG pH 7.507 H POC ABG pCO2 34.9 L POC ABG pO2 133 H ABG pO2 ABG HCO3 ABG Base Excess Sodium Potassium Chloride Carbon Dioxide BUN Creatinine Glucose POC Glucose Lactic Acid Calcium Phosphorus AST Total Creatine Kinase 293 H CK-MB (CK-2) 5.6 H Troponin T 2.830 H* Total Protein Albumin LDL Cholesterol Direct HDL Cholesterol Lipase Urine Creatinine Ur Creatinine 24 Hour Urine Total Protein 11/16/18 11/16/18 11/16/18 05:35 05:35 09:26 WBC RBC 3.44 L MCV 103 H MCH 34 H RDW 17.3 H Lymph % (Auto) 2.5 L [place] % (Auto) 9.3 H Lymph # 0.2 L Seg Neutrophils % 87.9 H Seg Neuts % (Manual) Lymphocytes % (Manual) Monocytes % (Manual) Nucleated RBC % Seg Neutrophils # Man Lymphocytes # (Manual) Monocytes # (Manual) PT INR POC ABG pH POC ABG pCO2 POC ABG pO2 ABG pO2 ABG HCO3 ABG Base Excess Sodium 135 L Potassium Chloride 95.9 L Carbon Dioxide BUN 47 H Creatinine 2.2 H Glucose POC Glucose Lactic Acid Calcium 8.1 L Phosphorus 4.60 H AST Total Creatine Kinase CK-MB (CK-2) Troponin T Total Protein Albumin LDL Cholesterol Direct HDL Cholesterol Lipase Urine Creatinine 103.3 H Ur Creatinine 24 Hour Urine Total Protein 11/16/18 11/17/18 11/18/18 09:26 10:42 04:45 WBC RBC 3.41 L 3.50 L MCV 104 H 104 H MCH 34 H 34 H RDW 17.4 H 17.7 H Lymph % (Auto) 4.1 L 4.9 L [place] % (Auto) 9.8 H 7.6 H Lymph # 0.2 L 0.3 L Seg Neutrophils % 85.8 H 87.1 H Seg Neuts % (Manual) Lymphocytes % (Manual) Monocytes % (Manual) Nucleated RBC % Seg Neutrophils # Man Lymphocytes # (Manual) Monocytes # (Manual) PT INR POC ABG pH POC ABG pCO2 POC ABG pO2 ABG pO2 ABG HCO3 ABG Base Excess Sodium Potassium Chloride Carbon Dioxide BUN Creatinine Glucose POC Glucose Lactic Acid Calcium Phosphorus AST Total Creatine Kinase CK-MB (CK-2) Troponin T Total Protein Albumin LDL Cholesterol Direct HDL Cholesterol Lipase Urine Creatinine 102.6 H Ur Creatinine 24 Hour Urine Total Protein 28 H 11/18/18 11/19/18 11/19/18 04:45 06:48 06:48 WBC RBC 3.63 L MCV 105 H MCH 35 H RDW 17.2 H Lymph % (Auto) 4.0 L [place] % (Auto) Lymph # 0.3 L Seg Neutrophils % 89.3 H Seg Neuts % (Manual) Lymphocytes % (Manual) Monocytes % (Manual) Nucleated RBC % Seg Neutrophils # Man Lymphocytes # (Manual) Monocytes # (Manual) PT INR POC ABG pH POC ABG pCO2 POC ABG pO2 ABG pO2 ABG HCO3 ABG Base Excess Sodium 135 L Potassium 3.5 L Chloride 95.9 L 95.4 L Carbon Dioxide BUN 58 H 64 H Creatinine 2.7 H 3.3 H Glucose 137 H 102 H POC Glucose Lactic Acid Calcium 7.7 L 8.0 L Phosphorus 5.00 H 6.10 H D AST Total Creatine Kinase CK-MB (CK-2) Troponin T Total Protein Albumin LDL Cholesterol Direct HDL Cholesterol Lipase Urine Creatinine Ur Creatinine 24 Hour Urine Total Protein 11/19/18 11/20/18 11/20/18 Unknown 01:15 04:30 WBC RBC 3.37 L MCV 105 H MCH 34 H RDW 17.5 H Lymph % (Auto) [place] % (Auto) Lymph # Seg Neutrophils % Seg Neuts % (Manual) 93.0 H Lymphocytes % (Manual) 3.0 L Monocytes % (Manual) Nucleated RBC % 1.0 H Seg Neutrophils # Man 8.1 H Lymphocytes # (Manual) 0.3 L Monocytes # (Manual) PT 23.2 H INR 2.11 H POC ABG pH POC ABG pCO2 POC ABG pO2 ABG pO2 ABG HCO3 ABG Base Excess Sodium Potassium Chloride Carbon Dioxide BUN Creatinine Glucose POC Glucose Lactic Acid 4.30 H* Calcium Phosphorus AST Total Creatine Kinase CK-MB (CK-2) Troponin T Total Protein Albumin LDL Cholesterol Direct HDL Cholesterol Lipase Urine Creatinine Ur Creatinine 24 Hour Urine Total Protein 11/20/18 11/20/18 11/20/18 04:30 19:25 21:33 WBC RBC MCV MCH RDW Lymph % (Auto) [place] % (Auto) Lymph # Seg Neutrophils % Seg Neuts % (Manual) Lymphocytes % (Manual) Monocytes % (Manual) Nucleated RBC % Seg Neutrophils # Man Lymphocytes # (Manual) Monocytes # (Manual) PT INR POC ABG pH 7.228 L POC ABG pCO2 30.5 L POC ABG pO2 160 H ABG pO2 ABG HCO3 ABG Base Excess Sodium 136 L Potassium Chloride 95.5 L Carbon Dioxide BUN 72 H Creatinine 3.6 H Glucose POC Glucose 106 H Lactic Acid Calcium 8.1 L Phosphorus 6.60 H AST Total Creatine Kinase CK-MB (CK-2) Troponin T Total Protein Albumin LDL Cholesterol Direct HDL Cholesterol Lipase Urine Creatinine Ur Creatinine 24 Hour Urine Total Protein 11/20/18 11/20/18 11/20/18 21:50 22:11 22:20 WBC RBC MCV MCH RDW Lymph % (Auto) [place] % (Auto) Lymph # Seg Neutrophils % Seg Neuts % (Manual) Lymphocytes % (Manual) Monocytes % (Manual) Nucleated RBC % Seg Neutrophils # Man Lymphocytes # (Manual) Monocytes # (Manual) PT INR POC ABG pH POC ABG pCO2 POC ABG pO2 ABG pO2 ABG HCO3 ABG Base Excess Sodium Potassium Chloride Carbon Dioxide BUN Creatinine Glucose POC Glucose 64 L 110 H Lactic Acid 8.40 H* Calcium Phosphorus AST Total Creatine Kinase CK-MB (CK-2) Troponin T Total Protein Albumin LDL Cholesterol Direct HDL Cholesterol Lipase Urine Creatinine Ur Creatinine 24 Hour Urine Total Protein 11/20/18 11/20/18 11/21/18 22:20 Unknown 04:52 WBC RBC MCV MCH RDW Lymph % (Auto) [place] % (Auto) Lymph # Seg Neutrophils % Seg Neuts % (Manual) Lymphocytes % (Manual) Monocytes % (Manual) Nucleated RBC % Seg Neutrophils # Man Lymphocytes # (Manual) Monocytes # (Manual) PT INR POC ABG pH 7.643 H POC ABG pCO2 POC ABG pO2 161 H ABG pO2 ABG HCO3 ABG Base Excess Sodium 134 L Potassium 5.5 H D Chloride 93.4 L Carbon Dioxide 17 L D BUN 72 H Creatinine 4.2 H Glucose POC Glucose Lactic Acid Calcium 8.0 L Phosphorus AST 57 H Total Creatine Kinase CK-MB (CK-2) Troponin T 3.550 H* Total Protein 4.2 L Albumin 2.3 L LDL Cholesterol Direct HDL Cholesterol Lipase Urine Creatinine Ur Creatinine 24 Hour Urine Total Protein 11/21/18 11/21/18 11/21/18 05:55 05:55 05:55 WBC 12.2 H RBC MCV 103 H MCH 34 H RDW 16.9 H Lymph % (Auto) [place] % (Auto) Lymph # Seg Neutrophils % Seg Neuts % (Manual) 96.0 H Lymphocytes % (Manual) 2.0 L Monocytes % (Manual) Nucleated RBC % Seg Neutrophils # Man 11.7 H Lymphocytes # (Manual) 0.2 L Monocytes # (Manual) PT INR POC ABG pH POC ABG pCO2 POC ABG pO2 ABG pO2 ABG HCO3 ABG Base Excess Sodium 136 L Potassium Chloride 94.2 L Carbon Dioxide BUN 76 H Creatinine 4.3 H Glucose 134 H POC Glucose Lactic Acid 2.70 H* Calcium 7.9 L Phosphorus 5.90 H AST Total Creatine Kinase CK-MB (CK-2) Troponin T Total Protein Albumin LDL Cholesterol Direct HDL Cholesterol Lipase Urine Creatinine Ur Creatinine 24 Hour Urine Total Protein 11/21/18 11/21/18 11/21/18 06:00 06:14 07:53 WBC RBC MCV MCH RDW Lymph % (Auto) [place] % (Auto) Lymph # Seg Neutrophils % Seg Neuts % (Manual) Lymphocytes % (Manual) Monocytes % (Manual) Nucleated RBC % Seg Neutrophils # Man Lymphocytes # (Manual) Monocytes # (Manual) PT INR POC ABG pH 7.516 H POC ABG pCO2 30.4 L POC ABG pO2 118 H ABG pO2 ABG HCO3 ABG Base Excess Sodium Potassium Chloride Carbon Dioxide BUN Creatinine Glucose POC Glucose 154 H Lactic Acid 2.50 H* Calcium Phosphorus AST Total Creatine Kinase CK-MB (CK-2) Troponin T Total Protein Albumin LDL Cholesterol Direct HDL Cholesterol Lipase Urine Creatinine Ur Creatinine 24 Hour Urine Total Protein 11/21/18 11/21/18 11/22/18 13:08 23:58 05:07 WBC RBC MCV MCH RDW Lymph % (Auto) [place] % (Auto) Lymph # Seg Neutrophils % Seg Neuts % (Manual) Lymphocytes % (Manual) Monocytes % (Manual) Nucleated RBC % Seg Neutrophils # Man Lymphocytes # (Manual) Monocytes # (Manual) PT INR POC ABG pH 7.452 H POC ABG pCO2 POC ABG pO2 79 L ABG pO2 ABG HCO3 ABG Base Excess Sodium Potassium Chloride Carbon Dioxide BUN Creatinine Glucose POC Glucose 115 H 121 H Lactic Acid Calcium Phosphorus AST Total Creatine Kinase CK-MB (CK-2) Troponin T Total Protein Albumin LDL Cholesterol Direct HDL Cholesterol Lipase Urine Creatinine Ur Creatinine 24 Hour Urine Total Protein 11/22/18 11/22/18 11/22/18 05:35 05:35 05:44 WBC RBC 3.00 L MCV 102 H MCH 34 H RDW 17.2 H Lymph % (Auto) [place] % (Auto) Lymph # Seg Neutrophils % Seg Neuts % (Manual) 89.0 H Lymphocytes % (Manual) 2.0 L Monocytes % (Manual) 8.0 H Nucleated RBC % Seg Neutrophils # Man 9.7 H Lymphocytes # (Manual) 0.2 L Monocytes # (Manual) 0.9 H PT INR POC ABG pH POC ABG pCO2 POC ABG pO2 ABG pO2 ABG HCO3 ABG Base Excess Sodium 136 L Potassium 3.5 L Chloride 97.0 L Carbon Dioxide BUN 78 H Creatinine 4.3 H Glucose 159 H POC Glucose 119 H Lactic Acid Calcium 7.3 L Phosphorus AST Total Creatine Kinase CK-MB (CK-2) Troponin T Total Protein Albumin LDL Cholesterol Direct HDL Cholesterol Lipase Urine Creatinine Ur Creatinine 24 Hour Urine Total Protein 11/23/18 11/23/18 11/24/18 03:29 04:22 04:19 WBC RBC MCV MCH RDW Lymph % (Auto) [place] % (Auto) Lymph # Seg Neutrophils % Seg Neuts % (Manual) Lymphocytes % (Manual) Monocytes % (Manual) Nucleated RBC % Seg Neutrophils # Man Lymphocytes # (Manual) Monocytes # (Manual) PT INR POC ABG pH 7.530 H 7.492 H POC ABG pCO2 32.3 L POC ABG pO2 ABG pO2 ABG HCO3 ABG Base Excess Sodium Potassium 3.2 L Chloride 95.4 L Carbon Dioxide BUN 83 H Creatinine 5.0 H Glucose POC Glucose Lactic Acid Calcium 7.9 L Phosphorus AST Total Creatine Kinase CK-MB (CK-2) Troponin T Total Protein Albumin LDL Cholesterol Direct HDL Cholesterol Lipase Urine Creatinine Ur Creatinine 24 Hour Urine Total Protein 11/24/18 11/25/18 11/25/18 Unknown 03:57 05:18 WBC RBC MCV MCH RDW Lymph % (Auto) [place] % (Auto) Lymph # Seg Neutrophils % Seg Neuts % (Manual) Lymphocytes % (Manual) Monocytes % (Manual) Nucleated RBC % Seg Neutrophils # Man Lymphocytes # (Manual) Monocytes # (Manual) PT INR POC ABG pH 7.453 H POC ABG pCO2 POC ABG pO2 ABG pO2 ABG HCO3 ABG Base Excess Sodium Potassium 3.1 L Chloride 95.3 L Carbon Dioxide BUN 86 H Creatinine 5.2 H Glucose POC Glucose 140 H Lactic Acid Calcium 7.9 L Phosphorus AST Total Creatine Kinase CK-MB (CK-2) Troponin T Total Protein Albumin LDL Cholesterol Direct HDL Cholesterol Lipase Urine Creatinine Ur Creatinine 24 Hour Urine Total Protein 08/13/19 08/13/19 08/13/19 05:40 12:26 15:16 WBC RBC MCV MCH RDW Lymph % (Auto) [place] % (Auto) Lymph # Seg Neutrophils % Seg Neuts % (Manual) Lymphocytes % (Manual) Monocytes % (Manual) Nucleated RBC % Seg Neutrophils # Man Lymphocytes # (Manual) Monocytes # (Manual) PT INR POC ABG pH POC ABG pCO2 POC ABG pO2 ABG pO2 ABG HCO3 ABG Base Excess Sodium 135 L Potassium Chloride 94.5 L Carbon Dioxide BUN 86 H Creatinine 5.4 H Glucose 118 H POC Glucose 120 H Lactic Acid Calcium 7.9 L Phosphorus AST Total Creatine Kinase CK-MB (CK-2) Troponin T Total Protein Albumin LDL Cholesterol Direct HDL Cholesterol Lipase Urine Creatinine 28.7 H Ur Creatinine 24 Hour 0.4 L Urine Total Protein 11/25/18 11/26/18 11/26/18 16:59 04:25 05:30 WBC RBC 3.10 L MCV 101 H MCH 34 H RDW 16.6 H Lymph % (Auto) [place] % (Auto) Lymph # Seg Neutrophils % Seg Neuts % (Manual) Lymphocytes % (Manual) Monocytes % (Manual) Nucleated RBC % Seg Neutrophils # Man Lymphocytes # (Manual) Monocytes # (Manual) PT INR POC ABG pH POC ABG pCO2 POC ABG pO2 ABG pO2 94.7 H ABG HCO3 27.8 H ABG Base Excess 3.3 H Sodium Potassium Chloride Carbon Dioxide BUN Creatinine Glucose POC Glucose 153 H Lactic Acid Calcium Phosphorus AST Total Creatine Kinase CK-MB (CK-2) Troponin T Total Protein Albumin LDL Cholesterol Direct HDL Cholesterol Lipase Urine Creatinine Ur Creatinine 24 Hour Urine Total Protein 11/26/18 11/26/18 05:39 05:40 WBC RBC MCV MCH RDW Lymph % (Auto) [place] % (Auto) Lymph # Seg Neutrophils % Seg Neuts % (Manual) Lymphocytes % (Manual) Monocytes % (Manual) Nucleated RBC % Seg Neutrophils # Man Lymphocytes # (Manual) Monocytes # (Manual) PT INR POC ABG pH POC ABG pCO2 POC ABG pO2 ABG pO2 ABG HCO3 ABG Base Excess Sodium Potassium 3.0 L Chloride 94.2 L Carbon Dioxide BUN 87 H Creatinine 5.2 H Glucose 147 H POC Glucose 130 H Lactic Acid Calcium 8.1 L Phosphorus AST Total Creatine Kinase CK-MB (CK-2) Troponin T Total Protein Albumin LDL Cholesterol Direct HDL Cholesterol Lipase Urine Creatinine Ur Creatinine 24 Hour Urine Total Protein
--- NOTE | 2018-11-26 10:44 | Progress Note ---
<SAURAV PITT - Last Filed: 11/26/18 10:45> Assessment and Plan Acute on Chronic systolic heart failure Suspect non-compliance Multiple HF admission Lower GI bleed - per GI s/p Cardiopulmonary arrest device interrogation revealed no activity Acute renal failure -per Nephrology Ascites Patient had paracentesis in previous admissions Hx of LUE DVT Hx of coronary artery disease cardiac cath 03/2018 revealed patent SVG to LAD, patent SVG to OM, patent SVG to PDA and patent diagonal stent, LVEF 10-15%. Non-specific troponin Hx of Ischemic cardiomyopathy ejection fraction 10-15% by echo 08/2018 Presence of single chamber cardiac defibrillator underlying paroxysmal atrial fibrillation. Eliquis discontinued due to lower GI bleed. on amiodarone and metoprolol for suppression of wide complex tachycardia and rate control of afib Tobacco abuse Conservative cardiac management. Subjective Date of service: 11/26/18 Principal diagnosis: blood in stool Interval history: Patient is alert but remains on the vent. Objective Vital Signs Temp Pulse Resp BP Pulse Ox 11/26/18 10:01 141 H 11 L 112/70 96 11/26/18 09:30 105 H 17 108/71 100 11/26/18 09:01 137 H 19 106/67 98 11/26/18 08:56 97.1 F L 11/26/18 08:31 110 H 14 106/74 98 11/26/18 08:01 107 H 18 106/74 97 11/26/18 08:00 97.1 F L 11/26/18 07:30 129 H 18 101/67 96 11/26/18 07:10 72 105/63 99 11/26/18 07:01 71 14 105/63 99 11/26/18 06:31 78 14 96/66 100 11/26/18 06:00 73 14 88/61 99 11/26/18 05:30 70 12 103/64 98 11/26/18 05:00 72 14 106/67 98 11/26/18 04:31 75 15 109/67 99 11/26/18 04:21 70 113/62 98 11/26/18 04:01 70 14 97/58 98 11/26/18 04:00 98.8 F 11/26/18 03:31 70 14 97/58 98 11/26/18 03:00 71 14 98/65 98 11/26/18 02:31 76 15 107/62 98 11/26/18 02:00 75 14 94/64 99 11/26/18 01:30 76 13 107/65 98 11/26/18 01:01 78 14 115/64 97 11/26/18 00:38 70 118/61 98 11/26/18 00:30 75 14 118/61 97 11/26/18 00:00 73 14 127/63 97 11/25/18 23:59 98.1 F 11/25/18 23:30 74 12 127/63 97 11/25/18 23:00 66 14 123/63 98 11/25/18 22:30 71 14 122/65 98 11/25/18 22:00 77 14 119/68 98 11/25/18 21:30 79 19 121/64 98 11/25/18 21:00 75 14 113/64 98 11/25/18 20:30 96 H 15 104/65 97 11/25/18 20:02 94 H 15 104/65 98 11/25/18 20:00 97.9 F 93 H 17 114/69 97 11/25/18 19:30 91 H 19 114/69 99 11/25/18 19:00 81 14 104/68 99 11/25/18 18:30 87 17 113/70 99 11/25/18 18:00 94 H 18 113/70 99 11/25/18 17:30 93 H 17 135/73 99 11/25/18 17:06 100 H 20 131/66 98 11/25/18 17:00 93 H 14 128/71 99 11/25/18 16:30 87 16 137/54 99 11/25/18 16:00 98 F 80 14 140/65 97 11/25/18 15:30 85 16 128/73 97 11/25/18 15:00 93 H 15 128/68 100 11/25/18 14:30 103 H 19 121/66 97 11/25/18 14:00 93 H 15 121/66 98 11/25/18 13:30 95 H 16 109/71 98 11/25/18 13:00 93 H 14 109/71 96 11/25/18 12:30 92 H 17 122/67 97 11/25/18 12:00 97.1 F L 97 H 14 112/64 98 11/25/18 11:30 99 H 18 115/67 98 11/25/18 11:25 97 H 16 115/67 97 11/25/18 11:00 105 H 18 104/64 98 - Physical Examination General: Other (on the vent) HEENT: Positive: PERRL Cardiac: Positive: irregularly irregular Neuro: Positive: Grossly Intact Extremities: Present: +1 Edema - Labs and Meds CBC 11/26/18 Range/Units 05:30 WBC 9.3 (4.5-11.0) K/mm3 RBC 3.10 L (3.65-5.03) M/mm3 Hgb 10.5 (10.1-14.3) gm/dl Hct 31.3 (30.3-42.9) % Plt Count 149 (140-440) K/mm3 Comprehensive Metabolic Panel 11/26/18 Range/Units 05:40 Sodium 137 (137-145) mmol/L Potassium 3.0 L (3.6-5.0) mmol/L Chloride 94.2 L (98-107) mmol/L Carbon Dioxide 30 (22-30) mmol/L BUN 87 H (7-17) mg/dL Creatinine 5.2 H (0.7-1.2) mg/dL Glucose 147 H (65-100) mg/dL Calcium 8.1 L (8.4-10.2) mg/dL <MAURI ARTEAGA - Last Filed: 11/26/18 20:08> Assessment and Plan I have seen and evaluated the patient and agree with the assessment and plan. Recommend continue current medical therapy for treatment of ischemic cariomyopathy and coronary artery disease. Objective Vital Signs Temp Pulse Resp BP Pulse Ox Pulse Ox 11/26/18 19:10 96 H 104/59 99 11/26/18 19:01 93 H 20 104/59 99 11/26/18 18:44 97.2 F L 88 13 106/65 11/26/18 18:43 93 H 106/65 11/26/18 18:30 86 17 106/65 99 11/26/18 18:15 76 98/56 11/26/18 18:01 76 103/65 11/26/18 18:00 72 15 103/65 99 11/26/18 17:45 80 110/60 11/26/18 17:30 100 H 18 102/60 99 11/26/18 17:15 76 114/64 11/26/18 17:00 74 14 123/58 99 11/26/18 16:45 85 125/65 11/26/18 16:30 92 H 16 120/60 97 11/26/18 16:15 85 104/61 11/26/18 16:01 100 H 17 107/63 98 11/26/18 16:00 97.7 F 110 H 120/66 98 11/26/18 15:45 97.2 F L 100 H 17 107/63 99 11/26/18 15:31 109 H 18 109/68 98 11/26/18 15:08 109 H 120/66 97 11/26/18 15:01 97 H 16 120/66 99 11/26/18 14:31 102 H 18 106/61 99 11/26/18 14:01 101 H 19 104/77 99 11/26/18 13:31 106 H 19 131/74 98 11/26/18 13:00 128 H 26 H 131/74 97 11/26/18 12:30 120 H 23 121/68 95 11/26/18 12:01 98 H 14 117/74 99 11/26/18 12:00 97.7 F 11/26/18 11:49 139 H 117/74 11/26/18 11:31 137 H 15 117/74 98 11/26/18 11:00 129 H 13 105/72 96 11/26/18 10:31 109 H 17 112/58 99 11/26/18 10:01 141 H 11 L 112/70 96 11/26/18 09:30 105 H 17 108/71 100 11/26/18 09:01 137 H 19 106/67 98 11/26/18 08:56 97.1 F L 11/26/18 08:31 110 H 14 106/74 98 11/26/18 08:01 107 H 18 106/74 97 11/26/18 08:00 97.1 F L 11/26/18 07:30 129 H 18 101/67 96 11/26/18 07:10 72 105/63 99 11/26/18 07:01 71 14 105/63 99 11/26/18 06:31 78 14 96/66 100 11/26/18 06:00 73 14 88/61 99 11/26/18 05:30 70 12 103/64 98 11/26/18 05:00 72 14 106/67 98 11/26/18 04:31 75 15 109/67 99 11/26/18 04:21 70 113/62 98 11/26/18 04:01 70 14 97/58 98 11/26/18 04:00 98.8 F 11/26/18 03:31 70 14 97/58 98 11/26/18 03:00 71 14 98/65 98 11/26/18 02:31 76 15 107/62 98 11/26/18 02:00 75 14 94/64 99 11/26/18 01:30 76 13 107/65 98 11/26/18 01:01 78 14 115/64 97 11/26/18 00:38 70 118/61 98 11/26/18 00:30 75 14 118/61 97 11/26/18 00:00 73 14 127/63 97 11/25/18 23:59 98.1 F 11/25/18 23:30 74 12 127/63 97 11/25/18 23:00 66 14 123/63 98 11/25/18 22:30 71 14 122/65 98 11/25/18 22:00 77 14 119/68 98 11/25/18 21:30 79 19 121/64 98 11/25/18 21:00 75 14 113/64 98 11/25/18 20:30 96 H 15 104/65 97 - Labs and Meds CBC 11/26/18 Range/Units 05:30 WBC 9.3 (4.5-11.0) K/mm3 RBC 3.10 L (3.65-5.03) M/mm3 Hgb 10.5 (10.1-14.3) gm/dl Hct 31.3 (30.3-42.9) % Plt Count 149 (140-440) K/mm3 Comprehensive Metabolic Panel 11/26/18 Range/Units 05:40 Sodium 137 (137-145) mmol/L Potassium 3.0 L (3.6-5.0) mmol/L Chloride 94.2 L (98-107) mmol/L Carbon Dioxide 30 (22-30) mmol/L BUN 87 H (7-17) mg/dL Creatinine 5.2 H (0.7-1.2) mg/dL Glucose 147 H (65-100) mg/dL Calcium 8.1 L (8.4-10.2) mg/dL
--- NOTE | 2018-11-26 11:24 | Progress Note ---
Assessment and Plan Acute renal failure likely ischemic due to cardiac arrest Hypoxic respiratory failure on mechanical ventilation Acute on Chronic systolic heart failure with EF of 10-15 % Paroxysmal atrial fibrillation Hypokalemia - Renal function reviewed. Serum creatinine 5.2 today, yesterday's level was 5.4, renal function not improving - Creatinine clearance is 5 ml/min as a result will initiate HD. Patient and aunt agreed. - Will consult vasc surgeon- Dr. Mayo for vasc cath placement - On Lasix 80 mg IV every 8 hours, adjust when start on HD - Replete potassium as needed - No proteinruia, renal US negative for obstruction - Renally dose medications - Strict I&O monitoring, good UOP of 1900 ml - Obtain daily weights - Continue to monitor renal function - Continue to monitor closely Subjective Date of service: 11/26/18 Principal diagnosis: blood in stool Interval history: Patient seen lying in bed. Intubated but awake and alert. No family at bedside. Spoke to patient with witness nurse Ellie at bedside regarding the need for dialysis initiation and patient has agreed. Spoke to patient's aunt Meagan Bear over the phone as well to update her on renal plan of care. Objective - Vital Signs Vital signs: Vital Signs - 12hr 11/25/18 11/25/18 11/26/18 23:30 23:59 00:00 Temperature 98.1 F Pulse Rate 74 73 Respiratory 12 14 Rate Blood Pressure 127/63 127/63 O2 Sat by Pulse 97 97 Oximetry 11/26/18 11/26/18 11/26/18 00:30 00:38 01:01 Temperature Pulse Rate 75 70 78 Respiratory 14 14 Rate Blood Pressure 118/61 118/61 115/64 O2 Sat by Pulse 97 98 97 Oximetry 11/26/18 11/26/18 11/26/18 01:30 02:00 02:31 Temperature Pulse Rate 76 75 76 Respiratory 13 14 15 Rate Blood Pressure 107/65 94/64 107/62 O2 Sat by Pulse 98 99 98 Oximetry 11/26/18 11/26/18 11/26/18 03:00 03:31 04:00 Temperature 98.8 F Pulse Rate 71 70 Respiratory 14 14 Rate Blood Pressure 98/65 97/58 O2 Sat by Pulse 98 98 Oximetry 11/26/18 11/26/18 11/26/18 04:01 04:21 04:31 Temperature Pulse Rate 70 70 75 Respiratory 14 15 Rate Blood Pressure 97/58 113/62 109/67 O2 Sat by Pulse 98 98 99 Oximetry 11/26/18 11/26/18 11/26/18 05:00 05:30 06:00 Temperature Pulse Rate 72 70 73 Respiratory 14 12 14 Rate Blood Pressure 106/67 103/64 88/61 O2 Sat by Pulse 98 98 99 Oximetry 11/26/18 11/26/18 11/26/18 06:31 07:01 07:10 Temperature Pulse Rate 78 71 72 Respiratory 14 14 Rate Blood Pressure 96/66 105/63 105/63 O2 Sat by Pulse 100 99 99 Oximetry 11/26/18 11/26/18 11/26/18 07:30 08:00 08:01 Temperature 97.1 F L Pulse Rate 129 H 107 H Respiratory 18 18 Rate Blood Pressure 101/67 106/74 O2 Sat by Pulse 96 97 Oximetry 11/26/18 11/26/18 11/26/18 08:31 08:56 09:01 Temperature 97.1 F L Pulse Rate 110 H 137 H Respiratory 14 19 Rate Blood Pressure 106/74 106/67 O2 Sat by Pulse 98 98 Oximetry 11/26/18 11/26/18 11/26/18 09:30 10:01 10:31 Temperature Pulse Rate 105 H 141 H 109 H Respiratory 17 11 L 17 Rate Blood Pressure 108/71 112/70 112/58 O2 Sat by Pulse 100 96 99 Oximetry 11/26/18 11:00 Temperature Pulse Rate 129 H Respiratory 13 Rate Blood Pressure 105/72 O2 Sat by Pulse 96 Oximetry - General Appearance General appearance: intubated, other (Awake and alert) EENT: ATNC, PERRL, hearing intact, vision intact Neck: no JVD, supple Respiratory: Present: Decreased Breath Sounds, Other (Intubated) Cardiology: S1S2 Gastrointestinal: normoactive bowel sounds Integumentary: warm and dry Neurologic: alert and oriented x3, other Musculoskeletal: joint swelling Psychiatric: cooperative - Lab 11/26/18 05:30 11/26/18 05:40 Most recent lab results ABG pH 7.441 pH Units (7.350-7.450) 11/26/18 04:25 ABG pCO2 41.7 mm Hg 11/26/18 04:25 ABG pO2 94.7 mm Hg (80.0-90.0) H 11/26/18 04:25 ABG HCO3 27.8 mmol/L (20.0-26.0) H 11/26/18 04:25 ABG O2 Saturation 97.4 % (95.0-99.0) 11/26/18 04:25 Calcium 8.1 mg/dL (8.4-10.2) L 11/26/18 05:40 Phosphorus 5.90 mg/dL (2.5-4.5) H 11/21/18 05:55 Magnesium 2.00 mg/dL (1.7-2.3) 11/26/18 05:40 28.7 mg/dL (0.1-20.0) H 11/25/18 15:16 28 mg/dL (5-11.8) H 11/16/18 09:26 Medications & Allergies - Medications Allergies/Adverse Reactions: Allergies lisinopril Allergy (Verified 02/24/18 09:15) Anaphylaxis Penicillins Allergy (Verified 02/24/18 09:15) Seizure Sulfa (Sulfonamide Antibiotics) Adverse Reaction (Verified 02/24/18 09:15) Hives Home Medications: Home Medications Medication Instructions Recorded Confirmed Last Taken Type Aspirin [Adult Aspirin] 81 mg PO DAILY 02/24/18 11/08/18 05/09/18 History Spironolactone [Aldactone] 25 mg PO QDAY 02/24/18 11/08/18 05/09/18 History buPROPion SR [Wellbutrin SR] 150 mg PO BID 02/24/18 11/08/18 05/09/18 History Albuterol Sulfate [Ventolin HFA] 1 puff IH Q6H PRN 30 Days 03/03/18 11/08/18 05/09/18 Rx hfa.[email or web address].[email or web address] Cyclobenzaprine [Flexeril 10 MG 10 mg PO TID PRN 05/10/18 11/08/18 05/09/18 History TAB] Diphenhydramine HCl [Allergy 25 mg PO DAILY 05/10/18 11/08/18 05/09/18 History Relief] ISOSORBIDE MONOnitrate [Imdur ER] 60 mg PO QDAY 05/10/18 11/08/18 05/09/18 History Sertraline HCl [Zoloft] 50 mg PO DAILY 05/10/18 11/08/18 05/09/18 History hydrALAZINE [Apresoline TAB] 25 mg PO Q8HR 05/10/18 11/08/18 05/09/18 History Apixaban [Eliquis] 5 mg PO Q12HR #60 tablet 07/02/18 11/08/18 Unknown Rx Pantoprazole [Protonix TAB] 40 mg PO QDAY #30 tablet 07/02/18 11/08/18 Unknown Rx Polyethylene Glycol 3350 [Miralax 17 gm PO BID PRN #30 powd.pack 07/02/18 11/08/18 Unknown Rx 3350] Carvedilol [Coreg] 3.125 mg PO BID #60 tablet 09/10/18 11/08/18 Unknown Rx Magnesium Oxide [Mag-Ox] 400 mg PO QDAY #7 tablet 10/04/18 11/08/18 Unknown Rx Potassium Chloride [K-Dur] 20 meq PO QDAY #7 tablet 10/04/18 11/08/18 Unknown Rx Torsemide [Demadex] 40 mg PO BID #60 tablet 10/04/18 11/08/18 Unknown Rx metOLazone [Zaroxolyn] 5 mg PO QDAY #30 tablet 10/04/18 11/08/18 Unknown Rx Active Medications: Generic Name Dose Route Start Last Admin Trade Name Freq PRN Reason Stop Dose Admin Albuterol 2.5 mg 11/09/18 08:00 11/20/18 22:07 Proventil IH 2.5 mg Q4HRT PRN Administration Shortness Of Breath Amiodarone HCl 200 mg 11/10/18 22:00 11/26/18 09:31 Cordarone PO 200 mg BID RADHA Administration Lipase/Protease/Amylase 1 each 11/23/18 11:36 Pancreazhannah Nielsen 10,500 Unit FEEDTUBE PRN PRN For Clogged Feeding Tube Aspirin 81 mg 11/09/18 10:00 11/26/18 09:30 Halfprin Ec PO 81 mg DAILY RADHA Administration Atorvastatin Calcium 40 mg 11/11/18 22:00 11/25/18 21:26 Lipitor PO 40 mg QHS RADHA Administration Bupropion HCl 150 mg 11/21/18 10:00 11/26/18 09:31 Wellbutrin PO 150 mg BID RADHA Administration Dextrose 50 ml 11/20/18 21:45 D50w (25gm) Syringe IV PRN PRN Hypoglycemia Furosemide 80 mg 11/23/18 18:00 11/26/18 09:31 Lasix IV 80 mg Q8H RADHA Administration Hydromorphone HCl 0.5 mg 11/19/18 11:21 11/26/18 04:37 Dilaudid IV 0.5 mg Q3H PRN Administration Pain , Severe (7-10) Hydrophilic Ointment 1 applic 11/20/18 20:27 Vaseline Lip Therapy TP Q2HR PRN Dry Lips Lansoprazole 30 mg 11/24/18 10:00 11/26/18 09:31 Prevacid Solutab FEEDTUBE 30 mg QDAY RADHA Administration Metoprolol Tartrate 2.5 mg 11/21/18 09:18 Lopressor IV Q6HR PRN Tachyarrhythmias Metoprolol Tartrate 12.5 mg 11/26/18 22:00 Lopressor PO BID RADHA Midazolam HCl 2 mg 11/20/18 20:27 11/21/18 04:08 Versed IV 2 mg Q10MIN PRN Administration Sedation Multi-Ingred Cream/Lotion/Oil/Oint 1 applic 11/20/18 20:27 Artificial Tears Ophth Oint OU Q4HR PRN Dry Eye(s) Ondansetron HCl 4 mg 11/11/18 13:44 11/25/18 09:35 Zofran IV 4 mg Q8H PRN Administration Nausea And Vomiting Polyethylene Glycol 17 gm 11/09/18 10:00 Miralax 3350 PO BID PRN Constipation Sertraline HCl 50 mg 11/09/18 10:00 11/26/18 09:31 Zoloft PO 50 mg DAILY RADHA Administration Simethicone 80 mg 11/12/18 11:49 11/15/18 04:05 Mylicon PO 80 mg Q6H PRN Administration Gas pain Simple Syrup 15 ml 11/23/18 11:36 Simple Syrup FEEDTUBE PRN PRN Hypoglycemia Simple Syrup 30 ml 11/23/18 11:36 Simple Syrup FEEDTUBE PRN PRN Hypoglycemia Sodium Bicarbonate 325 mg 11/23/18 11:36 Sodium Bicarbonate FEEDTUBE PRN PRN For Clogged Feeding Tube Sucralfate 1 gm 11/12/18 16:30 11/26/18 09:31 Carafate PO 1 gm ACHS RADHA Administration
[2018-11-26] MEDS: LOPRESSOR IV PRN (11:49)
[2018-11-26] MEDS: MYLICON PO PRN (11:50)
[2018-11-26] MEDS: ZOFRAN IV PRN (11:50)
--- NOTE | 2018-11-26 13:50 | XRay Report ---
CHEST 1 VIEW INDICATION: follow up respiratory failure. COMPARISON: 11/23/2018 FINDINGS: Comment: This examination is just presented to me for interpretation secondary to technical factors a the [facility]. Support devices: Pacemaker device and feeding tube are in adequate position. An endotracheal tube ter minates just above the [place]nee. Heart: Stable moderate cardiomegaly. Lungs/Pleura: Stable mild pulmonary venous congestion and probable small left pleural effusion. Additional findings: None. IMPRESSION: Stable cardiomegaly, pulmonary venous congestion and small left pleural effusion. Signer Name: Armando Orantes Jr, MD Signed: 11/26/2018 1:46 PM Workstation Name: [id number]
--- NOTE | 2018-11-26 14:03 | Progress Note ---
Assessment and Plan Assessment and plan: Patient is a 68 year old -[place] woman who was initially admitted for acute on chronic systolic heart failure. She was managed with IV milrinone drip and IV bumex by cardiology. The drip was discontinued on 11/13 while the IV Bumex was changed to oral on 11/14. she coded and was successfully resuscitated and transferred to the ICU S/p cardiac arrest x2--Successfully resuscitated, patient arrested again on 11/20 Acute on chronic respiratory failure with hypoxia on MV > 96 hours, extubated on 11/16, care per pulmonology, re-intubated on 11/20 after second cardiac arrest, cont MV, mgt per pulmonology Cardiogenic Shock: on pressors, on dobutamine drip, Acute on Chronic systolic heart failure with EF of 10-15% mgt per cardiology, on dobutamine drip, and diuretics as tolerated ACUTE GI BLEED- Most likely due to ischemic colitis from cardiac arrest, patient is too unstable for any intervention at this time, follow h/h closely Paroxysmal atrial fibrillation-Rate currently controlled, meds per cardiology- eliquis now on hold given gi bleed Hx of LUE DVT: Eliquis on hold due to gi bleed Hx of coronary artery disease:-cardiac cath 03/2018 revealed patent SVG to LAD, patent SVG to OM, patent SVG to PDA and patent diagonal stent, LVEF 10-15%. KERWIN, likely vasomotor nephropathy, ATN and/diuretic use: Management as per nephrology, worsening, may need HD if does not improve COPD, chronic and stable Tobacco abuse: -Patient counseled on cessation > 11 minutes Morbid obesity with BMI of 43.4: -Lifestyle modification recommended Prognosis is very poor. Cardiac arrest 2 and multiorgan failure, Family meeting done 11/26/18 with patient, Dr. Garrett Rhodes and myself. Proceed for tracheostomy this week. Disposition: continue inpatient care, tracheostomy this week and then LTACH CCT 35 minutes History Interval history: Patient was seen and examined. Follow-up on current diagnosis of Respiratory failure. No overnight events reported to me. Patient nodding her head to questions while on Mechanical Ventilator. Imaging, nursing note, chart, labs and old chart reviewed. Discussed with patient. Hospitalist Physical - Physical exam Narrative exam: Gen: ill appearing, intubated, bmi 43.3 HEENT: NCAT, EOMI, PERRL, OP Clear Neck: supple, no adenopathy, no thyromegaly, no JVD CVS/Heart: RRR, normal S1S2, pulses present bilaterally Chest/Lungs: Bibasilar Rales Symmetrical chest expansion, good air entry bilaterally GI/Abdomen: soft, NTND, good bowel sounds, no guarding or rebound /Bladder: no suprapubic tenderness, no CVA or paraspinal tenderness Extermity/Skin: dependent edema x 4 MSK: FROM x 4 Neuro: CN 2-12 grossly intact, no new focal deficits Psych: calm - Constitutional Vitals: Temp Pulse Resp BP Pulse Ox 97.7 F 98 H 14 117/74 99 11/26/18 12:00 11/26/18 12:01 11/26/18 12:01 11/26/18 12:01 11/26/18 12:01 General appearance: Present: other (intubated) Results - Labs CBC & Chem 7: 11/26/18 05:30 11/26/18 05:40 Labs: Laboratory Last Values WBC 9.3 K/mm3 (4.5-11.0) 11/26/18 05:30 RBC 3.10 M/mm3 (3.65-5.03) L 11/26/18 05:30 Hgb 10.5 gm/dl (10.1-14.3) 11/26/18 05:30 Hct 31.3 % (30.3-42.9) 11/26/18 05:30 MCV 101 fl (79-97) H 11/26/18 05:30 MCH 34 pg (28-32) H 11/26/18 05:30 MCHC 34 % (30-34) 11/26/18 05:30 RDW 16.6 % (13.2-15.2) H 11/26/18 05:30 Plt Count 149 K/mm3 (140-440) 11/26/18 05:30 Lymph % (Auto) 4.0 % (13.4-35.0) L 11/19/18 06:48 [place] % (Auto) 6.1 % (0.0-7.3) 11/19/18 06:48 Eos % (Auto) 0.0 % (0.0-4.3) 11/19/18 06:48 Baso % (Auto) 0.6 % (0.0-1.8) 11/19/18 06:48 Lymph # 0.3 K/mm3 (1.2-5.4) L 11/19/18 06:48 [place] # 0.5 K/mm3 (0.0-0.8) 11/19/18 06:48 Eos # 0.0 K/mm3 (0.0-0.4) 11/19/18 06:48 Baso # 0.0 K/mm3 (0.0-0.1) 11/19/18 06:48 Add Manual Diff Complete 11/22/18 05:35 Total Counted 100 11/22/18 05:35 Seg Neutrophils % Insurance Attorney 11/22/18 05:35 Seg Neuts % (Manual) 89.0 % (40.0-70.0) H 11/22/18 05:35 1.0 % 11/22/18 05:35 2.0 % (13.4-35.0) L 11/22/18 05:35 Reactive Lymphs % (Man) 0 % 11/22/18 05:35 8.0 % (0.0-7.3) H 11/22/18 05:35 0 % (0.0-4.3) 11/22/18 05:35 0 % (0.0-1.8) 11/22/18 05:35 0 % 11/22/18 05:35 0 % 11/22/18 05:35 0 % 11/22/18 05:35 0 % 11/22/18 05:35 Nucleated RBC % Not Reportable 11/22/18 05:35 Seg Neutrophils # 7.4 K/mm3 (1.8-7.7) 11/19/18 06:48 Seg Neutrophils # Man 9.7 K/mm3 (1.8-7.7) H 11/22/18 05:35 Band Neutrophils # 0.1 K/mm3 11/22/18 05:35 0.2 K/mm3 (1.2-5.4) L 11/22/18 05:35 Abs React Lymphs (Man) 0.0 K/mm3 11/22/18 05:35 0.9 K/mm3 (0.0-0.8) H 11/22/18 05:35 0.0 K/mm3 (0.0-0.4) 11/22/18 05:35 0.0 K/mm3 (0.0-0.1) 11/22/18 05:35 0.0 K/mm3 11/22/18 05:35 0.0 K/mm3 11/22/18 05:35 0.0 K/mm3 11/22/18 05:35 Blast Cells # 0.0 K/mm3 11/22/18 05:35 WBC Morphology Not Reportable 11/22/18 05:35 Hypersegmented Neuts Not Reportable 11/22/18 05:35 Hyposegmented Neuts Not Reportable 11/22/18 05:35 Hypogranular Neuts Not Reportable 11/22/18 05:35 Not Reportable 11/22/18 05:35 Not Reportable 11/22/18 05:35 Not Reportable 11/22/18 05:35 Not Reportable 11/22/18 05:35 Not Reportable 11/22/18 05:35 Not Reportable 11/22/18 05:35 Consistent w auto 11/22/18 05:35 Not Reportable 11/22/18 05:35 Plt Clumps, EDTA Not Reportable 11/22/18 05:35 Not Reportable 11/22/18 05:35 Not Reportable 11/22/18 05:35 Not Reportable 11/22/18 05:35 Plt Morphology Comment Not Reportable 11/22/18 05:35 RBC Morphology Not Reportable 11/22/18 05:35 Dimorphic RBCs Not Reportable 11/22/18 05:35 Not Reportable 11/22/18 05:35 Not Reportable 11/22/18 05:35 1+ 11/22/18 05:35 1+ 11/22/18 05:35 Not Reportable 11/22/18 05:35 1+ 11/22/18 05:35 Not Reportable 11/22/18 05:35 Not Reportable 11/22/18 05:35 Not Reportable 11/22/18 05:35 Not Reportable 11/22/18 05:35 Not Reportable 11/22/18 05:35 Few 11/22/18 05:35 Not Reportable 11/22/18 05:35 Not Reportable 11/22/18 05:35 Not Reportable 11/22/18 05:35 Not Reportable 11/22/18 05:35 Not Reportable 11/22/18 05:35 Not Reportable 11/22/18 05:35 Few 11/22/18 05:35 Acanthocytes (Spur) Not Reportable 11/22/18 05:35 Rouleaux Not Reportable 11/22/18 05:35 Not Reportable 11/22/18 05:35 Not Reportable 11/22/18 05:35 Not Reportable 11/22/18 05:35 Not Reportable 11/22/18 05:35 Hem Pathologist Commnt No 11/22/18 05:35 PT 23.2 Sec. (12.2-14.9) H 11/19/18 Unknown INR 2.11 (0.87-1.13) H 11/19/18 Unknown APTT 28.5 Sec. (24.2-36.6) 11/15/18 18:41 POC ABG pH 7.453 (7.35-7.45) H 11/25/18 03:57 ABG pH 7.441 pH Units (7.350-7.450) 11/26/18 04:25 POC ABG pCO2 38.2 (35-45) 11/25/18 03:57 ABG pCO2 41.7 mm Hg 11/26/18 04:25 POC ABG pO2 96 (80-105) 11/25/18 03:57 ABG pO2 94.7 mm Hg (80.0-90.0) H 11/26/18 04:25 POC ABG HCO3 26.8 (22-26 mml/L) 11/25/18 03:57 ABG HCO3 27.8 mmol/L (20.0-26.0) H 11/26/18 04:25 POC ABG Total CO2 28 (23-27mmol/L) 11/25/18 03:57 POC ABG O2 Sat 98 11/25/18 03:57 ABG O2 Saturation 97.4 % (95.0-99.0) 11/26/18 04:25 ABG O2 Content 16.4 (0.0-44) 11/26/18 04:25 POC ABG Base Excess 3 ((-2) - (+3)mmol/L) 11/25/18 03:57 ABG Base Excess 3.3 mmol/L (-2.0-3.0) H 11/26/18 04:25 ABG Hemoglobin 12.2 gm/dl (12.0-16.0) 11/26/18 04:25 ABG Carboxyhemoglobin 2.0 % (0.0-5.0) 11/26/18 04:25 ABG Methemoglobin 0.4 % (0.0-1.5) 11/26/18 04:25 95.1 % (95.0-99.0) 11/26/18 04:25 30 % 11/26/18 04:25 Sodium 137 mmol/L (137-145) 11/26/18 05:40 Potassium 3.0 mmol/L (3.6-5.0) L 11/26/18 05:40 Chloride 94.2 mmol/L (98-107) L 11/26/18 05:40 Carbon Dioxide 30 mmol/L (22-30) 11/26/18 05:40 16 mmol/L 11/26/18 05:40 BUN 87 mg/dL (7-17) H 11/26/18 05:40 5.2 mg/dL (0.7-1.2) H 11/26/18 05:40 Estimated GFR 10 ml/min 11/26/18 05:40 17 % 11/26/18 05:40 Glucose 147 mg/dL (65-100) H 11/26/18 05:40 POC Glucose 152 (70-105) H 11/26/18 11:32 Lactic Acid 1.50 mmol/L (0.7-2.0) 11/21/18 13:25 Calcium 8.1 mg/dL (8.4-10.2) L 11/26/18 05:40 Phosphorus 5.90 mg/dL (2.5-4.5) H 11/21/18 05:55 Magnesium 2.00 mg/dL (1.7-2.3) 11/26/18 05:40 0.50 mg/dL (0.1-1.2) 11/20/18 Unknown AST 57 units/L (5-40) H 11/20/18 Unknown ALT 25 units/L (7-56) 11/20/18 Unknown 53 units/L (35-129) 11/20/18 Unknown 293 units/L (30-135) H 11/15/18 18:41 CK-MB (CK-2) 5.6 ng/mL (0.0-4.0) H 11/15/18 18:41 CK-MB (CK-2) Rel Index 1.9 (0-4) 11/15/18 18:41 3.550 ng/mL (0.00-0.029) H* 11/20/18 22:20 4.2 g/dL (6.3-8.2) L 11/20/18 Unknown 2.3 g/dL (3.9-5) L 11/20/18 Unknown 1.2 % 11/20/18 Unknown Triglycerides 107 mg/dL (2-149) 11/08/18 03:09 Cholesterol 176 mg/dL (50-199) 11/08/18 03:09 137 mg/dL (50-130) H 11/08/18 03:09 33 mg/dL (40-59) L 11/08/18 03:09 5.33 % 11/08/18 03:09 11 units/L (13-60) L 11/13/18 05:38 Yellow (Yellow) 11/16/18 09:26 Slightly-cloudy (Clear) 11/16/18 09:26 7.0 (5.0-7.0) 11/16/18 09:26 Ur Specific [place] 1.014 (1.003-1.030) 11/16/18 09:26 <15 mg/dl mg/dL (Negative) 11/16/18 09:26 Neg mg/dL (Negative) 11/16/18 09:26 Tr mg/dL (Negative) 11/16/18 09:26 Neg (Negative) 11/16/18 09:26 Neg (Negative) 11/16/18 09:26 Neg (Negative) 11/16/18 09:26 < 2.0 mg/dL (<2.0) 11/16/18 09:26 Ur Leukocyte Esterase Neg (Negative) 11/16/18 09:26 2.0 /HPF (0.0-6.0) 11/16/18 09:26 1.0 /HPF (0.0-6.0) 11/16/18 09:26 U Epithel Cells (Auto) < 1.0 /HPF (0-13.0) 11/16/18 09:26 2+ /HPF (Negative) 11/16/18 09:26 Few /HPF 11/16/18 09:26 1500 ml 11/25/18 15:16 28.7 mg/dL (0.1-20.0) H 11/25/18 15:16 Ur Creatinine 24 Hour 0.4 (0.8-2.8) L 11/25/18 15:16 Protein/Creatinin Ratio 0.27 11/16/18 09:26 28 mg/dL (5-11.8) H 11/16/18 09:26 Blood Type O POSITIVE 11/19/18 Unknown Antibody Screen Negative 11/19/18 Unknown Active Medications - Current Medications Current Medications: Generic Name Dose Route Start Last Admin Trade Name Freq PRN Reason Stop Dose Admin Albuterol 2.5 mg 11/09/18 08:00 11/20/18 22:07 Proventil IH 2.5 mg Q4HRT PRN Administration Shortness Of Breath Amiodarone HCl 200 mg 11/10/18 22:00 11/26/18 09:31 Cordarone PO 200 mg BID RADHA Administration Lipase/Protease/Amylase 1 each 11/23/18 11:36 Pancreaze 10,500 Unit FEEDTUBE PRN PRN For Clogged Feeding Tube Aspirin 81 mg 11/09/18 10:00 11/26/18 09:30 Halfprin Ec PO 81 mg DAILY RADHA Administration Atorvastatin Calcium 40 mg 11/11/18 22:00 11/25/18 21:26 Lipitor PO 40 mg QHS RADHA Administration Bupropion HCl 150 mg 11/21/18 10:00 11/26/18 09:31 Wellbutrin PO 150 mg BID RADHA Administration Dextrose 50 ml 11/20/18 21:45 D50w (25gm) Syringe IV PRN PRN Hypoglycemia Furosemide 80 mg 11/23/18 18:00 11/26/18 09:31 Lasix IV 80 mg Q8H RADHA Administration Hydromorphone HCl 0.5 mg 11/19/18 11:21 11/26/18 11:50 Dilaudid IV 0.5 mg Q3H PRN Administration Pain , Severe (7-10) Hydrophilic Ointment 1 applic 11/20/18 20:27 Vaseline Lip Therapy TP Q2HR PRN Dry Lips Lansoprazole 30 mg 11/24/18 10:00 11/26/18 09:31 Prevacid Solutab FEEDTUBE 30 mg QDAY RADHA Administration Metoprolol Tartrate 2.5 mg 11/21/18 09:18 11/26/18 11:49 Lopressor IV 2.5 mg Q6HR PRN Administration Tachyarrhythmias Metoprolol Tartrate 12.5 mg 11/26/18 22:00 Lopressor PO BID RADHA Midazolam HCl 2 mg 11/20/18 20:27 11/21/18 04:08 Versed IV 2 mg Q10MIN PRN Administration Sedation Multi-Ingred Cream/Lotion/Oil/Oint 1 applic 11/20/18 20:27 Artificial Tears Ophth Oint OU Q4HR PRN Dry Eye(s) Ondansetron HCl 4 mg 11/11/18 13:44 11/26/18 11:50 Zofran IV 4 mg Q8H PRN Administration Nausea And Vomiting Polyethylene Glycol 17 gm 11/09/18 10:00 Miralax 3350 PO BID PRN Constipation Sertraline HCl 50 mg 11/09/18 10:00 11/26/18 09:31 Zoloft PO 50 mg DAILY RADHA Administration Simethicone 80 mg 11/12/18 11:49 11/26/18 11:50 Mylicon PO 80 mg Q6H PRN Administration Gas pain Simple Syrup 15 ml 11/23/18 11:36 Simple Syrup FEEDTUBE PRN PRN Hypoglycemia Simple Syrup 30 ml 11/23/18 11:36 Simple Syrup FEEDTUBE PRN PRN Hypoglycemia Sodium Bicarbonate 325 mg 11/23/18 11:36 Sodium Bicarbonate FEEDTUBE PRN PRN For Clogged Feeding Tube Sucralfate 1 gm 11/12/18 16:30 11/26/18 09:31 Carafate PO 1 gm ACHS RADHA Administration Nutrition/Malnutrition Assess - Dietary Evaluation Nutrition/Malnutrition Findings: Nutrition Notes Start: 11/14/18 15:47 Freq: Status: Active Protocol: Document 11/24/18 14:56 RM (Rec: 11/24/18 14:59 RM [id number]) Nutrition Notes Initial or Follow up Reassessment Current Diagnosis Acute Kidney Injury,Coronary Artery Disease,Heart Failure Other Pertinent Diagnosis cardiac arrest Current Diet Vital 1.2 at 20 ml/hr Labs/Tests K 3.1 Pertinent Medications Lasix, Levophed, Zofran Height 5 ft 7 in Weight 128 kg [place] Body Weight (kg) 61.36 BMI 44.1 Weight change and time frame Noted wt increase. Likely d/t fluid change or added wt from bedding. Subjective/Other Information Consulted for TF recommendation. MD ordered Vital 1.2 as placeholder. Burn Absent Trauma Absent #1 Nutrition Diagnosis Inadequate oral intake Diagnosis Progress(for reassessment Continues documentation) Is patient on ventilator? No Is Patient Ambulatory and/or Out of Bed No REE-([facility]-confined to bed) 2210.244 Kcal/Kg value to use for calculation 14 Approximate Energy Requirements Using 1792 kcal/Kg Calculation Used for Recommendations Kcal/kg Additional Notes Protein Needs: 153g (2.5g/kg IBW) Fluid Needs: 1 ml/kcal Nutrition Intervention Change Diet Order: TF consult Nutrition Support: Vital 1.2 at 60 ml/hr Water flush of 100 mls q 4 hrs Protein provided by TF is restricted to protect kidney function Kcal 1,728 Carbohydrates (gm) 108 Fluid (mL) 1,168 Goal #1 TF tolerance Goal #2 Meet calorie and nutritional needs as best possible Anticipated Discharge Needs: Unable to determine at this time Follow-Up By: 11/26/18 Additional Comments Follow for new TF
--- NOTE | 2018-11-26 14:51 | Operative Report ---
Operative Report Operative Report: Exam: Ultrasound guided placement of Vascath Clinical indication: Patient with acute renal failure, catheter needed for dialysis access Date: 11/26/2018 Procedure: Following an explanation of the risks, benefits and alternatives; written informed consent was obtained from the patient's next of kin. The pr ocedure was performed at bedside in the ICU. Initial ultrasound evaluation of the neck demonstrated a patent right internal jugular vein. The patient's right neck and chest wall prepped and draped in the usual sterile fashion. 1% lidocaine was used for anesthesia. Under ultrasound guidance, the right internal jugular vein was cannulated with a 7 cm 18-gauge needle. A 0.035 guidewire was advanced centrally. The needle was removed. Following serial dilation over the guidewire, a 15 cm dialysis catheter was placed over the guidewire advanced centrally. The guidewire was removed. Nonpulsatile blood return from all 3 ports. The catheter was securely flushed and locked with sterile saline. The catheter was fastened to the skin surface using 2-0 nylon suture and a sterile dressing applied. The patient tolerated the procedure well. There were no immediate post procedure complications. A postprocedure chest x-ray was ordered to document appropriate positioning. Impression: Ultrasound guided placement of Vas-cath via the right internal jugular vein.
--- NOTE | 2018-11-26 15:08 | Progress Note ---
Assessment and Plan 68 yo F 1. VDRF 2. s/p cardiac arrest x2 3. CHF, EF of 10-15% 4. Afib 5. AICD 6. CAD with hx of cardiac stenting and bypass 7. GIB Plan: 1. Discussed with cardiology - patient is optimized from cardiac standpoint. Dobutamine gtt is off. High risk candidate for gen anesthesia 2. Discussed with Dr. Tucker, patient will need trach and PEG 3. Patient is agreeable to proceed with procedures. May be difficult to transilluminate abdominal wall due to patient's body habitus however will attempt EGD and PEG placement. Discussed all risks, benefits, alternatives to surgery with her Aunt over telephone and consent obtained 4. Continue current management per critical care and other consultants 5. Trach/PEG scheduled for Tuesday 11/28 at 230pm Thank you, please call with questions. Subjective Date of service: 11/26/18 Narrative: Pt seen and examined. No acute events. Objective Vital Signs - 12hr 11/26/18 11/26/18 11/26/18 03:31 04:00 04:01 Temperature 98.8 F Pulse Rate 70 70 Respiratory 14 14 Rate Blood Pressure 97/58 97/58 O2 Sat by Pulse 98 98 Oximetry 11/26/18 11/26/18 11/26/18 04:21 04:31 05:00 Temperature Pulse Rate 70 75 72 Respiratory 15 14 Rate Blood Pressure 113/62 109/67 106/67 O2 Sat by Pulse 98 99 98 Oximetry 11/26/18 11/26/18 11/26/18 05:30 06:00 06:31 Temperature Pulse Rate 70 73 78 Respiratory 12 14 14 Rate Blood Pressure 103/64 88/61 96/66 O2 Sat by Pulse 98 99 100 Oximetry 11/26/18 11/26/18 11/26/18 07:01 07:10 07:30 Temperature Pulse Rate 71 72 129 H Respiratory 14 18 Rate Blood Pressure 105/63 105/63 101/67 O2 Sat by Pulse 99 99 96 Oximetry 11/26/18 11/26/18 11/26/18 08:00 08:01 08:31 Temperature 97.1 F L Pulse Rate 107 H 110 H Respiratory 18 14 Rate Blood Pressure 106/74 106/74 O2 Sat by Pulse 97 98 Oximetry 11/26/18 11/26/18 11/26/18 08:56 09:01 09:30 Temperature 97.1 F L Pulse Rate 137 H 105 H Respiratory 19 17 Rate Blood Pressure 106/67 108/71 O2 Sat by Pulse 98 100 Oximetry 11/26/18 11/26/18 11/26/18 10:01 10:31 11:00 Temperature Pulse Rate 141 H 109 H 129 H Respiratory 11 L 17 13 Rate Blood Pressure 112/70 112/58 105/72 O2 Sat by Pulse 96 99 96 Oximetry 11/26/18 11/26/18 11/26/18 11:31 11:49 12:00 Temperature 97.7 F Pulse Rate 137 H 139 H Respiratory 15 Rate Blood Pressure 117/74 117/74 O2 Sat by Pulse 98 Oximetry 11/26/18 12:01 Temperature Pulse Rate 98 H Respiratory 14 Rate Blood Pressure 117/74 O2 Sat by Pulse 99 Oximetry - General physical appearance Narrative Exam: Gen: sleeping comfortably. NAD ENT: dobhoff and ETT in place CV; S1, S2+ Resp: on vent, CPAP mode Abd: obese Ext: no c/c/e - Labs 11/26/18 05:30 11/26/18 05:40 Diabetes panel 11/26/18 Range/Units 05:40 Sodium 137 (137-145) mmol/L Potassium 3.0 L (3.6-5.0) mmol/L Chloride 94.2 L (98-107) mmol/L Carbon Dioxide 30 (22-30) mmol/L BUN 87 H (7-17) mg/dL Creatinine 5.2 H (0.7-1.2) mg/dL Glucose 147 H (65-100) mg/dL Calcium 8.1 L (8.4-10.2) mg/dL Calcium panel 11/26/18 Range/Units 05:40 Calcium 8.1 L (8.4-10.2) mg/dL Pituitary panel 11/26/18 Range/Units 05:40 Sodium 137 (137-145) mmol/L Potassium 3.0 L (3.6-5.0) mmol/L Chloride 94.2 L (98-107) mmol/L Carbon Dioxide 30 (22-30) mmol/L BUN 87 H (7-17) mg/dL Creatinine 5.2 H (0.7-1.2) mg/dL Glucose 147 H (65-100) mg/dL Calcium 8.1 L (8.4-10.2) mg/dL Adrenal panel 11/26/18 Range/Units 05:40 Sodium 137 (137-145) mmol/L Potassium 3.0 L (3.6-5.0) mmol/L Chloride 94.2 L (98-107) mmol/L Carbon Dioxide 30 (22-30) mmol/L BUN 87 H (7-17) mg/dL Creatinine 5.2 H (0.7-1.2) mg/dL Glucose 147 H (65-100) mg/dL Calcium 8.1 L (8.4-10.2) mg/dL
--- NOTE | 2018-11-26 15:25 | XRay Report ---
CHEST 1 VIEW INDICATION: right IJ vascath placement. COMPARISON: 11/26/2018 at 0223 hours FINDINGS: Support devices: Right IJ vas catheter has been inserted which terminates near the cavoatrial junctio n. The endotracheal tube, feeding tube and right arm PICC remain in the same position. Heart: Within normal moderate cardiomegaly is stable. Limits. Lungs/Pleura: Mild increase in pulmonary venous congestion is demonstrated. Small left pleural effusi on is suspected on today's exam. No pneumothorax. Additional findings: None. IMPRESSION: Right IJ Vas-Cath placement as described. No pneumothorax. CHF appears slightly increased since earlier today. Signer Name: Armando Orantes Jr, MD Signed: 11/26/2018 3:21 PM Workstation Name: [id number]
[2018-11-26] MEDS ORDERED: SIMPLE SYRUP FEEDTUBE PRN ×2 (16:41)
[2018-11-26] MEDS ORDERED: SODIUM BICARBONATE FEEDTUBE PRN (16:41)
[2018-11-26] MEDS ORDERED: PANCREAZE DR 10,500 UNIT FEEDTUBE PRN (16:41)
[2018-11-26 17:46] LABS: Hepatitis B Surface Antigen Non-Reactive (Negative); Hepatitis C Virus Antibody Non-Reactive (NonReactive)
[2018-11-26] MEDS: LOPRESSOR PO SCH (21:31)
[2018-11-27] MEDS: LASIX IV SCH ×2 (02:00→09:04)
--- NOTE | 2018-11-27 02:26 | XRay Report ---
CHEST - 1 VIEW INDICATION: follow up respiratory failure COMPARISON: Yesterday FINDINGS: Support devices: Stable support device positioning. Heart: Stable cardiomediastinal silhouette. Lungs/pleura: Persistent edema and left-sided effusion. Additional findings: None. IMPRESSION: Unchanged exam. Signer Name: Syd Klein MD Signed: 11/27/2018 2:22 AM Workstation Name: [id number]
[2018-11-27] MEDS: DILAUDID IV PRN ×3 (02:36→21:04)
[2018-11-27 05:00] LABS: Hemoglobin 10.7 gm/dl (10.1-14.3); Mean Corpuscular HGB Conc 33 % (30-34); Mean Corpuscular Volume 103 fl (79-97); Platelet Count 165 K/mm3 (140-440); Red Blood Count 3.12 M/mm3 (3.65-5.03); Red Cell Distribution Width 17.6 % (13.2-15.2)
[2018-11-27] MEDS: CARAFATE PO SCH ×4 (08:17→21:04)
[2018-11-27] MEDS: LOPRESSOR PO SCH ×2 (09:03→21:02)
[2018-11-27] MEDS: HALFPRIN EC PO SCH (09:04)
[2018-11-27] MEDS: CORDARONE PO SCH ×2 (09:04→21:02)
[2018-11-27] MEDS: PREVACID SOLUTAB FEEDTUBE SCH (09:04)
[2018-11-27] MEDS: ZOLOFT PO SCH (09:05)
[2018-11-27] MEDS: WELLBUTRIN PO SCH ×2 (09:05→21:04)
--- NOTE | 2018-11-27 10:36 | Progress Note ---
Assessment and Plan Acute renal failure likely ischemic due to cardiac arrest Hypoxic respiratory failure on mechanical ventilation Acute on Chronic systolic heart failure with EF of 10-15 % Paroxysmal atrial fibrillation Hypokalemia - first HD 11/26 - HD again today for clearance and volume removal - will d/c lasix, UF with HD - Replete potassium as needed - No proteinruia, renal US negative for obstruction - Renally dose medications - Strict I&O monitoring, good UOP of 1900 ml - Obtain daily weights - Continue to monitor renal function - Continue to monitor closely Preet Mendez MD [phone] Subjective Date of service: 11/27/18 Principal diagnosis: blood in stool Interval history: intubated and sedated, no family at bedside Objective - Vital Signs Vital signs: Vital Signs - 12hr 11/26/18 11/26/18 11/26/18 23:00 23:30 23:40 Temperature Pulse Rate 69 73 72 Respiratory 14 14 Rate Blood Pressure 120/61 125/61 126/61 O2 Sat by Pulse 99 100 99 Oximetry 11/26/18 11/27/18 11/27/18 23:42 00:00 00:31 Temperature 99.3 F Pulse Rate 70 74 Respiratory 14 14 Rate Blood Pressure 98/62 98/62 O2 Sat by Pulse 99 100 Oximetry 11/27/18 11/27/18 11/27/18 01:01 01:31 02:00 Temperature Pulse Rate 82 88 80 Respiratory 14 12 12 Rate Blood Pressure 105/60 103/59 107/60 O2 Sat by Pulse 100 99 99 Oximetry 11/27/18 11/27/18 11/27/18 02:31 03:00 03:30 Temperature Pulse Rate 75 72 71 Respiratory 14 14 13 Rate Blood Pressure 121/63 111/64 108/66 O2 Sat by Pulse 100 100 100 Oximetry 11/27/18 11/27/18 11/27/18 04:00 04:01 04:13 Temperature 99.0 F Pulse Rate 78 73 Respiratory 14 Rate Blood Pressure 112/63 112/63 O2 Sat by Pulse 99 99 Oximetry 11/27/18 11/27/18 11/27/18 04:30 05:00 05:30 Temperature Pulse Rate 71 83 74 Respiratory 14 14 14 Rate Blood Pressure 101/59 110/56 121/61 O2 Sat by Pulse 99 99 99 Oximetry 11/27/18 11/27/18 11/27/18 06:00 09:03 10:23 Temperature Pulse Rate 71 83 78 Respiratory 13 Rate Blood Pressure 110/62 139/58 131/96 O2 Sat by Pulse 100 Oximetry 11/27/18 10:30 Temperature Pulse Rate 74 Respiratory Rate Blood Pressure 129/61 O2 Sat by Pulse Oximetry - General Appearance General appearance: well-developed, obese, intubated EENT: ATNC, PERRL, mucous membranes dry Neck: no JVD, no carotid bruit Respiratory: Present: Decreased Breath Sounds Cardiology: regular, S1S2 Gastrointestinal: normoactive bowel sounds, no tenderness, no distended Integumentary: no rash, warm and dry Neurologic: other (intubated) Musculoskeletal: other (trace pitting edema in BLE) Psychiatric: other (intubated) - Lab 11/27/18 04:00 11/27/18 04:00 Most recent lab results ABG pH 7.441 pH Units (7.350-7.450) 11/26/18 04:25 ABG pCO2 41.7 mm Hg 11/26/18 04:25 ABG pO2 94.7 mm Hg (80.0-90.0) H 11/26/18 04:25 ABG HCO3 27.8 mmol/L (20.0-26.0) H 11/26/18 04:25 ABG O2 Saturation 97.4 % (95.0-99.0) 11/26/18 04:25 Calcium 8.0 mg/dL (8.4-10.2) L 11/27/18 04:00 Phosphorus 5.90 mg/dL (2.5-4.5) H 11/21/18 05:55 Magnesium 2.00 mg/dL (1.7-2.3) 11/26/18 05:40 28.7 mg/dL (0.1-20.0) H 11/25/18 15:16 28 mg/dL (5-11.8) H 11/16/18 09:26 Medications & Allergies - Medications Allergies/Adverse Reactions: Allergies lisinopril Allergy (Verified 02/24/18 09:15) Anaphylaxis Penicillins Allergy (Verified 02/24/18 09:15) Seizure Sulfa (Sulfonamide Antibiotics) Adverse Reaction (Verified 02/24/18 09:15) Hives Home Medications: Home Medications Medication Instructions Recorded Confirmed Last Taken Type Aspirin [Adult Aspirin] 81 mg PO DAILY 02/24/18 11/08/18 05/09/18 History Spironolactone [Aldactone] 25 mg PO QDAY 02/24/18 11/08/18 05/09/18 History buPROPion SR [Wellbutrin SR] 150 mg PO BID 02/24/18 11/08/18 05/09/18 History Albuterol Sulfate [Ventolin HFA] 1 puff IH Q6H PRN 30 Days 03/03/18 11/08/18 05/09/18 Rx [email or web address] Cyclobenzaprine [Flexeril 10 MG 10 mg PO TID PRN 05/10/18 11/08/18 05/09/18 History TAB] Diphenhydramine HCl [Allergy 25 mg PO DAILY 05/10/18 11/08/18 05/09/18 History Relief] ISOSORBIDE MONOnitrate [Imdur ER] 60 mg PO QDAY 05/10/18 11/08/18 05/09/18 History Sertraline HCl [Zoloft] 50 mg PO DAILY 05/10/18 11/08/18 05/09/18 History hydrALAZINE [Apresoline TAB] 25 mg PO Q8HR 05/10/18 11/08/18 05/09/18 History Apixaban [Eliquis] 5 mg PO Q12HR #60 tablet 07/02/18 11/08/18 Unknown Rx Pantoprazole [Protonix TAB] 40 mg PO QDAY #30 tablet 07/02/18 11/08/18 Unknown Rx Polyethylene Glycol 3350 [Miralax 17 gm PO BID PRN #30 powd.pack 07/02/18 11/08/18 Unknown Rx 3350] Carvedilol [Coreg] 3.125 mg PO BID #60 tablet 09/10/18 11/08/18 Unknown Rx Magnesium Oxide [Mag-Ox] 400 mg PO QDAY #7 tablet 10/04/18 11/08/18 Unknown Rx Potassium Chloride [K-Dur] 20 meq PO QDAY #7 tablet 10/04/18 11/08/18 Unknown Rx Torsemide [Demadex] 40 mg PO BID #60 tablet 10/04/18 11/08/18 Unknown Rx metOLazone [Zaroxolyn] 5 mg PO QDAY #30 tablet 10/04/18 11/08/18 Unknown Rx Active Medications: Generic Name Dose Route Start Last Admin Trade Name Freq PRN Reason Stop Dose Admin Albuterol 2.5 mg 11/09/18 08:00 11/20/18 22:07 Proventil IH 2.5 mg Q4HRT PRN Administration Shortness Of Breath Amiodarone HCl 200 mg 11/10/18 22:00 11/27/18 09:04 Cordarone PO 200 mg BID RADHA Administration Lipase/Protease/Amylase 1 each 11/26/18 16:41 Pancreaze 10,500 Unit FEEDTUBE PRN PRN For Clogged Feeding Tube Aspirin 81 mg 11/09/18 10:00 11/27/18 09:04 Halfprin Ec PO 81 mg DAILY RADHA Administration Atorvastatin Calcium 40 mg 11/11/18 22:00 11/26/18 21:30 Lipitor PO 40 mg QHS RADHA Administration Bupropion HCl 150 mg 11/21/18 10:00 11/27/18 09:05 Wellbutrin PO 150 mg BID RADHA Administration Dextrose 50 ml 11/20/18 21:45 D50w (25gm) Syringe IV PRN PRN Hypoglycemia Furosemide 80 mg 11/23/18 18:00 11/27/18 09:04 Lasix IV 80 mg Q8H RADHA Administration Hydromorphone HCl 0.5 mg 11/19/18 11:21 11/27/18 02:36 Dilaudid IV 0.5 mg Q3H PRN Administration Pain , Severe (7-10) Hydrophilic Ointment 1 applic 11/20/18 20:27 11/27/18 09:04 Vaseline Lip Therapy TP 1 applic Q2HR PRN Administration Dry Lips Sodium Chloride 100 mls @ 999 mls/hr 11/27/18 09:48 Nacl 0.9% IV ANGEL PRN Hypotension Lansoprazole 30 mg 11/24/18 10:00 11/27/18 09:04 Prevacid Solutab FEEDTUBE 30 mg QDAY RADHA Administration Metoprolol Tartrate 2.5 mg 11/21/18 09:18 11/26/18 11:49 Lopressor IV 2.5 mg Q6HR PRN Administration Tachyarrhythmias Metoprolol Tartrate 12.5 mg 11/26/18 22:00 11/27/18 09:03 Lopressor PO 12.5 mg BID RADHA Administration Midazolam HCl 2 mg 11/20/18 20:27 11/21/18 04:08 Versed IV 2 mg Q10MIN PRN Administration Sedation Multi-Ingred Cream/Lotion/Oil/Oint 1 applic 11/20/18 20:27 Artificial Tears Ophth Oint OU Q4HR PRN Dry Eye(s) Ondansetron HCl 4 mg 11/11/18 13:44 11/26/18 11:50 Zofran IV 4 mg Q8H PRN Administration Nausea And Vomiting Polyethylene Glycol 17 gm 11/09/18 10:00 Miralax 3350 PO BID PRN Constipation Sertraline HCl 50 mg 11/09/18 10:00 11/27/18 09:05 Zoloft PO 50 mg DAILY RADHA Administration Simethicone 80 mg 11/12/18 11:49 11/26/18 11:50 Mylicon PO 80 mg Q6H PRN Administration Gas pain Simple Syrup 15 ml 11/26/18 16:41 Simple Syrup FEEDTUBE PRN PRN Hypoglycemia Simple Syrup 30 ml 11/26/18 16:41 Simple Syrup FEEDTUBE PRN PRN Hypoglycemia Sodium Bicarbonate 325 mg 11/26/18 16:41 Sodium Bicarbonate FEEDTUBE PRN PRN For Clogged Feeding Tube Sucralfate 1 gm 11/12/18 16:30 11/27/18 08:17 Carafate PO 1 gm ACHS RADHA Administration
--- NOTE | 2018-11-27 10:44 | Progress Note ---
Assessment and Plan Assessment and plan: Patient is a 68 year old -[place] woman who was initially admitted for acute on chronic systolic heart failure. She was managed with IV milrinone drip and IV bumex by cardiology. The drip was discontinued on 11/13 while the IV Bumex was changed to oral on 11/14. She coded on 11/15/18 and was successfully resuscitated and transferred to the ICU. She was extubated on 11/16/18 and had another cardiac arrest on 11/20/18 in which she survived but she was re-intubated. S/p cardiac arrest x2--Successfully resuscitated on 11/14/18 then patient arrested again on 11/20/18 Acute on chronic respiratory failure with hypoxia on MV > 96 hours, extubated on 11/16, care per pulmonology, re-intubated on 11/20 after second cardiac arrest, cont MV, mgt per pulmonology Cardiogenic Shock, resolved: off vaso-pressors, off dobutamine drip, Acute on Chronic systolic heart failure with EF of 10-15% mgt per cardiology, dobutamine drip off on 11/26/18, and diuretics as tolerated ACUTE GI BLEED- Most likely due to ischemic colitis from cardiac arrest, patient is too unstable for any intervention at this time, follow h/h closely Paroxysmal atrial fibrillation-Rate currently controlled, meds per cardiology- eliquis now on hold given gi bleed Hx of LUE DVT: Eliquis on hold due to gi bleed Hx of coronary artery disease:-cardiac cath 03/2018 revealed patent SVG to LAD, patent SVG to OM, patent SVG to PDA and patent diagonal stent, LVEF 10-15%. KERWIN, likely vasomotor nephropathy, ATN and/diuretic use: Management as per nephrology, worsening, HD planned COPD, chronic and stable Tobacco abuse: -Counseled on cessation Morbid obesity with BMI of 43.4: -Lifestyle modification recommended Prognosis is very poor. Cardiac arrest 2 and multiorgan failure, Disposition: continue inpatient care, tracheostomy Saturday, HD catheter today and then hopefully LTACH on Saturday CCT 31 minutes History Interval history: Patient was seen and examined. Follow-up on current diagnosis of Respiratory failure. No overnight events reported to me. Patient nodding her head to questions while on Mechanical Ventilator. Imaging, nursing note, chart, labs and old chart reviewed. Discussed with patient. Hospitalist Physical - Physical exam Narrative exam: Gen: ill appearing, intubated, bmi 43.3 HEENT: NCAT, EOMI, PERRL, OP Clear Neck: supple, no adenopathy, no thyromegaly, no JVD CVS/Heart: RRR, normal S1S2, pulses present bilaterally Chest/Lungs: Bibasilar Rales Symmetrical chest expansion, good air entry bilaterally GI/Abdomen: soft, NTND, good bowel sounds, no guarding or rebound /Bladder: no suprapubic tenderness, no CVA or paraspinal tenderness Extermity/Skin: dependent edema x 4 MSK: FROM x 4 Neuro: CN 2-12 grossly intact, no new focal deficits Psych: calm - Constitutional Vitals: Temp Pulse Resp BP Pulse Ox 99.0 F 74 13 129/61 100 11/27/18 04:00 11/27/18 10:30 11/27/18 06:00 11/27/18 10:30 11/27/18 06:00 General appearance: Present: other (intubated) Results - Labs CBC & Chem 7: 11/27/18 04:00 11/27/18 04:00 Labs: Laboratory Last Values WBC 10.1 K/mm3 (4.5-11.0) 11/27/18 04:00 RBC 3.12 M/mm3 (3.65-5.03) L 11/27/18 04:00 Hgb 10.7 gm/dl (10.1-14.3) 11/27/18 04:00 Hct 32.0 % (30.3-42.9) 11/27/18 04:00 MCV 103 fl (79-97) H 11/27/18 04:00 MCH 34 pg (28-32) H 11/27/18 04:00 MCHC 33 % (30-34) 11/27/18 04:00 RDW 17.6 % (13.2-15.2) H 11/27/18 04:00 Plt Count 165 K/mm3 (140-440) 11/27/18 04:00 Lymph % (Auto) 4.0 % (13.4-35.0) L 11/19/18 06:48 [place] % (Auto) 6.1 % (0.0-7.3) 11/19/18 06:48 Eos % (Auto) 0.0 % (0.0-4.3) 11/19/18 06:48 Baso % (Auto) 0.6 % (0.0-1.8) 11/19/18 06:48 Lymph # 0.3 K/mm3 (1.2-5.4) L 11/19/18 06:48 [place] # 0.5 K/mm3 (0.0-0.8) 11/19/18 06:48 Eos # 0.0 K/mm3 (0.0-0.4) 11/19/18 06:48 Baso # 0.0 K/mm3 (0.0-0.1) 11/19/18 06:48 Add Manual Diff Complete 11/22/18 05:35 Total Counted 100 11/22/18 05:35 Seg Neutrophils % Cooler Deliverer 11/22/18 05:35 Seg Neuts % (Manual) 89.0 % (40.0-70.0) H 11/22/18 05:35 1.0 % 11/22/18 05:35 2.0 % (13.4-35.0) L 11/22/18 05:35 Reactive Lymphs % (Man) 0 % 11/22/18 05:35 8.0 % (0.0-7.3) H 11/22/18 05:35 0 % (0.0-4.3) 11/22/18 05:35 0 % (0.0-1.8) 11/22/18 05:35 0 % 11/22/18 05:35 0 % 11/22/18 05:35 0 % 11/22/18 05:35 0 % 11/22/18 05:35 Nucleated RBC % Not Reportable 11/22/18 05:35 Seg Neutrophils # 7.4 K/mm3 (1.8-7.7) 11/19/18 06:48 Seg Neutrophils # Man 9.7 K/mm3 (1.8-7.7) H 11/22/18 05:35 Band Neutrophils # 0.1 K/mm3 11/22/18 05:35 0.2 K/mm3 (1.2-5.4) L 11/22/18 05:35 Abs React Lymphs (Man) 0.0 K/mm3 11/22/18 05:35 0.9 K/mm3 (0.0-0.8) H 11/22/18 05:35 0.0 K/mm3 (0.0-0.4) 11/22/18 05:35 0.0 K/mm3 (0.0-0.1) 11/22/18 05:35 0.0 K/mm3 11/22/18 05:35 0.0 K/mm3 11/22/18 05:35 0.0 K/mm3 11/22/18 05:35 Blast Cells # 0.0 K/mm3 11/22/18 05:35 WBC Morphology Not Reportable 11/22/18 05:35 Hypersegmented Neuts Not Reportable 11/22/18 05:35 Hyposegmented Neuts Not Reportable 11/22/18 05:35 Hypogranular Neuts Not Reportable 11/22/18 05:35 Not Reportable 11/22/18 05:35 Not Reportable 11/22/18 05:35 Not Reportable 11/22/18 05:35 Not Reportable 11/22/18 05:35 Not Reportable 11/22/18 05:35 Not Reportable 11/22/18 05:35 Consistent w auto 11/22/18 05:35 Not Reportable 11/22/18 05:35 Plt Clumps, EDTA Not Reportable 11/22/18 05:35 Not Reportable 11/22/18 05:35 Not Reportable 11/22/18 05:35 Not Reportable 11/22/18 05:35 Plt Morphology Comment Not Reportable 11/22/18 05:35 RBC Morphology Not Reportable 11/22/18 05:35 Dimorphic RBCs Not Reportable 11/22/18 05:35 Not Reportable 11/22/18 05:35 Not Reportable 11/22/18 05:35 1+ 11/22/18 05:35 1+ 11/22/18 05:35 Not Reportable 11/22/18 05:35 1+ 11/22/18 05:35 Not Reportable 11/22/18 05:35 Not Reportable 11/22/18 05:35 Not Reportable 11/22/18 05:35 Not Reportable 11/22/18 05:35 Not Reportable 11/22/18 05:35 Few 11/22/18 05:35 Not Reportable 11/22/18 05:35 Not Reportable 11/22/18 05:35 Not Reportable 11/22/18 05:35 Not Reportable 11/22/18 05:35 Not Reportable 11/22/18 05:35 Not Reportable 11/22/18 05:35 Few 11/22/18 05:35 Acanthocytes (Spur) Not Reportable 11/22/18 05:35 Rouleaux Not Reportable 11/22/18 05:35 Not Reportable 11/22/18 05:35 Not Reportable 11/22/18 05:35 Not Reportable 11/22/18 05:35 Not Reportable 11/22/18 05:35 Hem Pathologist Commnt No 11/22/18 05:35 PT 23.2 Sec. (12.2-14.9) H 11/19/18 Unknown INR 2.11 (0.87-1.13) H 11/19/18 Unknown APTT 28.5 Sec. (24.2-36.6) 11/15/18 18:41 POC ABG pH 7.453 (7.35-7.45) H 11/25/18 03:57 ABG pH 7.441 pH Units (7.350-7.450) 11/26/18 04:25 POC ABG pCO2 38.2 (35-45) 11/25/18 03:57 ABG pCO2 41.7 mm Hg 11/26/18 04:25 POC ABG pO2 96 (80-105) 11/25/18 03:57 ABG pO2 94.7 mm Hg (80.0-90.0) H 11/26/18 04:25 POC ABG HCO3 26.8 (22-26 mml/L) 11/25/18 03:57 ABG HCO3 27.8 mmol/L (20.0-26.0) H 11/26/18 04:25 POC ABG Total CO2 28 (23-27mmol/L) 11/25/18 03:57 POC ABG O2 Sat 98 11/25/18 03:57 ABG O2 Saturation 97.4 % (95.0-99.0) 11/26/18 04:25 ABG O2 Content 16.4 (0.0-44) 11/26/18 04:25 POC ABG Base Excess 3 ((-2) - (+3)mmol/L) 11/25/18 03:57 ABG Base Excess 3.3 mmol/L (-2.0-3.0) H 11/26/18 04:25 ABG Hemoglobin 12.2 gm/dl (12.0-16.0) 11/26/18 04:25 ABG Carboxyhemoglobin 2.0 % (0.0-5.0) 11/26/18 04:25 ABG Methemoglobin 0.4 % (0.0-1.5) 11/26/18 04:25 95.1 % (95.0-99.0) 11/26/18 04:25 30 % 11/26/18 04:25 Sodium 140 mmol/L (137-145) 11/27/18 04:00 Potassium 3.5 mmol/L (3.6-5.0) L 11/27/18 04:00 Chloride 97.0 mmol/L (98-107) L 11/27/18 04:00 Carbon Dioxide 33 mmol/L (22-30) H 11/27/18 04:00 14 mmol/L 11/27/18 04:00 BUN 73 mg/dL (7-17) H 11/27/18 04:00 4.6 mg/dL (0.7-1.2) H 11/27/18 04:00 Estimated GFR 11 ml/min 11/27/18 04:00 16 % 11/27/18 04:00 Glucose 119 mg/dL (65-100) H 11/27/18 04:00 POC Glucose 124 (70-105) H 11/27/18 05:48 Lactic Acid 1.50 mmol/L (0.7-2.0) 11/21/18 13:25 Calcium 8.0 mg/dL (8.4-10.2) L 11/27/18 04:00 Phosphorus 5.90 mg/dL (2.5-4.5) H 11/21/18 05:55 Magnesium 2.00 mg/dL (1.7-2.3) 11/26/18 05:40 0.50 mg/dL (0.1-1.2) 11/20/18 Unknown AST 57 units/L (5-40) H 11/20/18 Unknown ALT 25 units/L (7-56) 11/20/18 Unknown 53 units/L (35-129) 11/20/18 Unknown 293 units/L (30-135) H 11/15/18 18:41 CK-MB (CK-2) 5.6 ng/mL (0.0-4.0) H 11/15/18 18:41 CK-MB (CK-2) Rel Index 1.9 (0-4) 11/15/18 18:41 3.550 ng/mL (0.00-0.029) H* 11/20/18 22:20 4.2 g/dL (6.3-8.2) L 11/20/18 Unknown 2.3 g/dL (3.9-5) L 11/20/18 Unknown 1.2 % 11/20/18 Unknown Triglycerides 107 mg/dL (2-149) 11/08/18 03:09 Cholesterol 176 mg/dL (50-199) 11/08/18 03:09 137 mg/dL (50-130) H 11/08/18 03:09 33 mg/dL (40-59) L 11/08/18 03:09 5.33 % 11/08/18 03:09 11 units/L (13-60) L 11/13/18 05:38 Yellow (Yellow) 11/16/18 09:26 Slightly-cloudy (Clear) 11/16/18 09:26 7.0 (5.0-7.0) 11/16/18 09:26 Ur Specific [place] 1.014 (1.003-1.030) 11/16/18 09:26 <15 mg/dl mg/dL (Negative) 11/16/18 09:26 Neg mg/dL (Negative) 11/16/18 09:26 Tr mg/dL (Negative) 11/16/18 09:26 Neg (Negative) 11/16/18 09:26 Neg (Negative) 11/16/18 09:26 Neg (Negative) 11/16/18 09:26 < 2.0 mg/dL (<2.0) 11/16/18 09:26 Ur Leukocyte Esterase Neg (Negative) 11/16/18 09:26 2.0 /HPF (0.0-6.0) 11/16/18 09:26 1.0 /HPF (0.0-6.0) 11/16/18 09:26 U Epithel Cells (Auto) < 1.0 /HPF (0-13.0) 11/16/18 09:26 2+ /HPF (Negative) 11/16/18 09:26 Few /HPF 11/16/18 09:26 1500 ml 11/25/18 15:16 28.7 mg/dL (0.1-20.0) H 11/25/18 15:16 Ur Creatinine 24 Hour 0.4 (0.8-2.8) L 11/25/18 15:16 Protein/Creatinin Ratio 0.27 11/16/18 09:26 28 mg/dL (5-11.8) H 11/16/18 09:26 Hepatitis A IgM Ab Non-reactive (NonReactive) 11/26/18 17:05 Hep Bs Antigen Non-reactive (Negative) 11/26/18 17:05 Hep B Core IgM Ab Non-reactive (NonReactive) 11/26/18 17:05 Non-reactive (NonReactive) 11/26/18 17:05 Blood Type O POSITIVE 11/19/18 Unknown Antibody Screen Negative 11/19/18 Unknown Active Medications - Current Medications Current Medications: Generic Name Dose Route Start Last Admin Trade Name Freq PRN Reason Stop Dose Admin Albuterol 2.5 mg 11/09/18 08:00 11/20/18 22:07 Proventil IH 2.5 mg Q4HRT PRN Administration Shortness Of Breath Amiodarone HCl 200 mg 11/10/18 22:00 11/27/18 09:04 Cordarone PO 200 mg BID RADHA Administration Lipase/Protease/Amylase 1 each 11/26/18 16:[address] 10,500 Unit FEEDTUBE PRN PRN For Clogged Feeding Tube Aspirin 81 mg 11/09/18 10:00 11/27/18 09:04 Halfprin Ec PO 81 mg DAILY RADHA Administration Atorvastatin Calcium 40 mg 11/11/18 22:00 11/26/18 21:30 Lipitor PO 40 mg QHS RADHA Administration Bupropion HCl 150 mg 11/21/18 10:00 11/27/18 09:05 Wellbutrin PO 150 mg BID RADHA Administration Dextrose 50 ml 11/20/18 21:45 D50w (25gm) Syringe IV PRN PRN Hypoglycemia Hydromorphone HCl 0.5 mg 11/19/18 11:21 11/27/18 02:36 Dilaudid IV 0.5 mg Q3H PRN Administration Pain , Severe (7-10) Hydrophilic Ointment 1 applic 11/20/18 20:27 11/27/18 09:04 Vaseline Lip Therapy TP 1 applic Q2HR PRN Administration Dry Lips Sodium Chloride 100 mls @ 999 mls/hr 11/27/18 09:48 Nacl 0.9% IV ANGEL PRN Hypotension Lansoprazole 30 mg 11/24/18 10:00 11/27/18 09:04 Prevacid Solutab FEEDTUBE 30 mg QDAY RADHA Administration Metoprolol Tartrate 2.5 mg 11/21/18 09:18 11/26/18 11:49 Lopressor IV 2.5 mg Q6HR PRN Administration Tachyarrhythmias Metoprolol Tartrate 12.5 mg 11/26/18 22:00 11/27/18 09:03 Lopressor PO 12.5 mg BID RADHA Administration Midazolam HCl 2 mg 11/20/18 20:27 11/21/18 04:08 Versed IV 2 mg Q10MIN PRN Administration Sedation Multi-Ingred Cream/Lotion/Oil/Oint 1 applic 11/20/18 20:27 Artificial Tears Ophth Oint OU Q4HR PRN Dry Eye(s) Ondansetron HCl 4 mg 11/11/18 13:44 11/26/18 11:50 Zofran IV 4 mg Q8H PRN Administration Nausea And Vomiting Polyethylene Glycol 17 gm 11/09/18 10:00 Miralax 3350 PO BID PRN Constipation Sertraline HCl 50 mg 11/09/18 10:00 11/27/18 09:05 Zoloft PO 50 mg DAILY RADHA Administration Simethicone 80 mg 11/12/18 11:49 11/26/18 11:50 Mylicon PO 80 mg Q6H PRN Administration Gas pain Simple Syrup 15 ml 11/26/18 16:41 Simple Syrup FEEDTUBE PRN PRN Hypoglycemia Simple Syrup 30 ml 11/26/18 16:41 Simple Syrup FEEDTUBE PRN PRN Hypoglycemia Sodium Bicarbonate 325 mg 11/26/18 16:41 Sodium Bicarbonate FEEDTUBE PRN PRN For Clogged Feeding Tube Sucralfate 1 gm 11/12/18 16:30 11/27/18 08:17 Carafate PO 1 gm ACHS RADHA Administration Nutrition/Malnutrition Assess - Dietary Evaluation Nutrition/Malnutrition Findings: Nutrition Notes Start: 11/14/18 1 5:47 Freq: Status: Active Protocol: Document 11/26/18 15:59 FUNMILAYO (Rec: 11/26/18 16:41 FUNMILAYO [email or web address]) Nutrition Notes Initial or Follow up Reassessment Current Diagnosis Acute Kidney Injury,COPD, Coronary Artery Disease,Heart Failure,Respiratory Failure Other Pertinent Diagnosis s/p cardiac arrest, acute GIB Current Diet TF - Vital AF 1.2 at 60ml/hr Labs/Tests K 3 BUN 87 Cr 5.2 Pertinent Medications Reviewed Height 5 ft 7 in Weight 121.14 kg [place] Body Weight (kg) 61.36 BMI 41.8 Weight change and time frame Current wt obtained from bed scale Subjective/Other Information TF infusing at goal rate. Pt remains on vent support. Trach placement scheduled for this wk. Per RN, PEG tube to be placed tomorrow or this Saturday. Pt also to start HD. Percent of energy/protein needs met: 81% energy 98% pro Burn Absent Trauma Absent #1 Nutrition Diagnosis Inadequate oral intake Diagnosis Progress(for reassessment Continues documentation) Is patient on ventilator? Yes Is Patient Ambulatory and/or Out of Bed No REE-([place]-confined to bed) 2127.996 Kcal/Kg value to use for calculation 12 Approximate Energy Requirements Using 1454 kcal/Kg Calculation Used for Recommendations Kcal/kg Additional Notes Pro needs 1.2-1.4g/kg adjBW: 110-128g Fluid needs: 1-1.5L/day Nutrition Intervention Nutrition Support: Decrease TF goal rate to 50ml/ hr with 80ml water flush q4h. Kcal 1,440 Protein (gm) 90 Fluid (mL) 973 Goal #1 TF tolerance Goal #2 TF to meet 65-70% energy and 90-100% pro Follow-Up By: 11/27/18 Additional Comments F/U: TF rate decrease
[2018-11-27] MEDS ORDERED: NACL 0.9% 100 ML IV PRN (11:00)
--- NOTE | 2018-11-27 12:08 | Progress Note ---
Assessment and Plan 68 y/o female with known systolic heart failure, admitted post cardiac arrest, intubated, awake and alert. 1. Surgery deciding about trach and peg. Patient is morbidly obese so may be difficult for PEG. If not, may need to ask IR. Plan is currently for trach and attempt at peg tube on Tomorrow (Saturday at 1430) 2. HD per renal. 3. Labs per renal as well, especially regarding the frequency and need of drawings. 4. Continue PSV trials as tolerated 5. Given the fact that she may have invasive therapies procedures, will hold on anticoagulation for now. SCD's only. 6. Once trached and pegged, should be stable for transfer to LTACH. CCT 31 minutes. Subjective Date of service: 11/27/18 Principal diagnosis: blood in stool Interval history: HD for the first time yesterday and tolerated it. Currently undergoing second treatment today for volume removal. Dobutamine off Objective Vital Signs - 12hr 11/27/18 11/27/18 11/27/18 00:31 01:01 01:31 Temperature Pulse Rate 74 82 88 Respiratory 14 14 12 Rate Blood Pressure 98/62 105/60 103/59 O2 Sat by Pulse 100 100 99 Oximetry O2 Sat by Pulse Oximetry [ Bilateral Throughout] 11/27/18 11/27/18 11/27/18 02:00 02:31 03:00 Temperature Pulse Rate 80 75 72 Respiratory 12 14 14 Rate Blood Pressure 107/60 121/63 111/64 O2 Sat by Pulse 99 100 100 Oximetry O2 Sat by Pulse Oximetry [ Bilateral Throughout] 11/27/18 11/27/18 11/27/18 03:30 04:00 04:01 Temperature 99.0 F Pulse Rate 71 78 Respiratory 13 14 Rate Blood Pressure 108/66 112/63 O2 Sat by Pulse 100 99 Oximetry O2 Sat by Pulse Oximetry [ Bilateral Throughout] 11/27/18 11/27/18 11/27/18 04:13 04:30 05:00 Temperature Pulse Rate 73 71 83 Respiratory 14 14 Rate Blood Pressure 112/63 101/59 110/56 O2 Sat by Pulse 99 99 99 Oximetry O2 Sat by Pulse Oximetry [ Bilateral Throughout] 11/27/18 11/27/18 11/27/18 05:30 06:00 06:30 Temperature Pulse Rate 74 71 76 Respiratory 14 13 14 Rate Blood Pressure 121/61 110/62 120/57 O2 Sat by Pulse 99 100 99 Oximetry O2 Sat by Pulse Oximetry [ Bilateral Throughout] 11/27/18 11/27/18 11/27/18 07:00 07:30 08:00 Temperature 97.8 F Pulse Rate 72 75 86 Respiratory 14 14 15 Rate Blood Pressure 122/63 129/62 124/66 O2 Sat by Pulse 99 99 100 Oximetry O2 Sat by Pulse Oximetry [ Bilateral Throughout] 11/27/18 11/27/18 11/27/18 08:30 09:00 09:03 Temperature Pulse Rate 77 72 83 Respiratory 14 14 Rate Blood Pressure 125/70 139/58 139/58 O2 Sat by Pulse 100 100 Oximetry O2 Sat by Pulse Oximetry [ Bilateral Throughout] 11/27/18 11/27/18 11/27/18 09:30 10:01 10:23 Temperature Pulse Rate 78 79 78 Respiratory 13 16 Rate Blood Pressure 137/59 129/61 131/96 O2 Sat by Pulse 100 100 Oximetry O2 Sat by Pulse Oximetry [ Bilateral Throughout] 11/27/18 11/27/18 11/27/18 10:30 10:34 10:45 Temperature 99.0 F Pulse Rate 80 78 79 Respiratory 15 13 Rate Blood Pressure 129/61 131/68 141/68 O2 Sat by Pulse 100 Oximetry O2 Sat by Pulse 99 Oximetry [ Bilateral Throughout] 11/27/18 11/27/18 11/27/18 11:00 11:15 11:30 Temperature Pulse Rate 76 75 73 Respiratory 15 16 Rate Blood Pressure 128/62 124/60 114/59 O2 Sat by Pulse 99 99 Oximetry O2 Sat by Pulse Oximetry [ Bilateral Throughout] Constitutional: no acute distress, alert, other (obese) Eyes: non-icteric ENT: oropharynx moist Neck: supple Effort: normal Ascultation: Bilateral: clear (anteriorly, decreased due to obesity) Percussion: Bilateral: not dull Cardiovascular: regular rate and rhythm (no mrg) Gastrointestinal: normoactive bowel sounds, soft, non-tender, non-distended Integumentary: normal Extremities: pink and warm, edema (2+ bilateral LE edema) Neurologic: normal mental status, non-focal exam, pupils equal and round, CN II- XII normal Psychiatric: mood appropriate, affect normal CBC and BMP: 11/27/18 04:00 11/27/18 04:00 ABG, PT/INR, D-dimer: ABG POC ABG pH 7.453 (7.35-7.45) H 11/25/18 03:57 ABG pH 7.441 pH Units (7.350-7.450) 11/26/18 04:25 POC ABG pCO2 38.2 (35-45) 11/25/18 03:57 ABG pCO2 41.7 mm Hg 11/26/18 04:25 POC ABG pO2 96 (80-105) 11/25/18 03:57 ABG pO2 94.7 mm Hg (80.0-90.0) H 11/26/18 04:25 POC ABG HCO3 26.8 (22-26 mml/L) 11/25/18 03:57 POC ABG Total CO2 28 (23-27mmol/L) 11/25/18 03:57 POC ABG O2 Sat 98 11/25/18 03:57 ABG O2 Saturation 97.4 % (95.0-99.0) 11/26/18 04:25 PT/INR, D-dimer PT 23.2 Sec. (12.2-14.9) H 11/19/18 Unknown INR 2.11 (0.87-1.13) H 11/19/18 Unknown Abnormal lab findings: Abnormal Labs 11/08/18 11/08/18 11/08/18 03:09 03:09 05:50 WBC RBC 3.37 L MCV 106 H MCH 34 H RDW 17.1 H Lymph % (Auto) 4.6 L [place] % (Auto) 11.5 H Lymph # 0.2 L Seg Neutrophils % 83.0 H Seg Neuts % (Manual) Lymphocytes % (Manual) Monocytes % (Manual) Nucleated RBC % Seg Neutrophils # Man Lymphocytes # (Manual) Monocytes # (Manual) PT INR POC ABG pH POC ABG pCO2 POC ABG pO2 ABG pO2 ABG HCO3 ABG Base Excess Sodium 135 L Potassium Chloride Carbon Dioxide BUN 29 H Creatinine 1.4 H Glucose POC Glucose Lactic Acid Calcium 8.1 L Phosphorus AST Total Creatine Kinase CK-MB (CK-2) Troponin T 0.042 H 0.039 H Total Protein Albumin LDL Cholesterol Direct 137 H HDL Cholesterol 33 L Lipase Urine Creatinine Ur Creatinine 24 Hour Urine Total Protein 11/10/18 11/10/18 11/10/18 05:47 07:32 13:08 WBC RBC MCV MCH RDW Lymph % (Auto) [place] % (Auto) Lymph # Seg Neutrophils % Seg Neuts % (Manual) Lymphocytes % (Manual) Monocytes % (Manual) Nucleated RBC % Seg Neutrophils # Man Lymphocytes # (Manual) Monocytes # (Manual) PT INR POC ABG pH POC ABG pCO2 POC ABG pO2 ABG pO2 ABG HCO3 ABG Base Excess Sodium Potassium Chloride Carbon Dioxide 32 H BUN 25 H Creatinine Glucose 104 H POC Glucose 115 H 142 H Lactic Acid Calcium 7.9 L Phosphorus AST Total Creatine Kinase CK-MB (CK-2) Troponin T Total Protein Albumin LDL Cholesterol Direct HDL Cholesterol Lipase Urine Creatinine Ur Creatinine 24 Hour Urine Total Protein 11/10/18 11/10/18 11/11/18 16:55 21:21 07:51 WBC RBC MCV MCH RDW Lymph % (Auto) [place] % (Auto) Lymph # Seg Neutrophils % Seg Neuts % (Manual) Lymphocytes % (Manual) Monocytes % (Manual) Nucleated RBC % Seg Neutrophils # Man Lymphocytes # (Manual) Monocytes # (Manual) PT INR POC ABG pH POC ABG pCO2 POC ABG pO2 ABG pO2 ABG HCO3 ABG Base Excess Sodium Potassium Chloride Carbon Dioxide BUN Creatinine Glucose POC Glucose 125 H 126 H 118 H Lactic Acid Calcium Phosphorus AST Total Creatine Kinase CK-MB (CK-2) Troponin T Total Protein Albumin LDL Cholesterol Direct HDL Cholesterol Lipase Urine Creatinine Ur Creatinine 24 Hour Urine Total Protein 11/11/18 11/11/18 11/12/18 12:25 21:32 07:46 WBC RBC MCV MCH RDW Lymph % (Auto) [place] % (Auto) Lymph # Seg Neutrophils % Seg Neuts % (Manual) Lymphocytes % (Manual) Monocytes % (Manual) Nucleated RBC % Seg Neutrophils # Man Lymphocytes # (Manual) Monocytes # (Manual) PT INR POC ABG pH POC ABG pCO2 POC ABG pO2 ABG pO2 ABG HCO3 ABG Base Excess Sodium Potassium Chloride 97.7 L Carbon Dioxide BUN 28 H Creatinine Glucose POC Glucose 125 H 126 H Lactic Acid Calcium 8.0 L Phosphorus AST Total Creatine Kinase CK-MB (CK-2) Troponin T Total Protein Albumin LDL Cholesterol Direct HDL Cholesterol Lipase Urine Creatinine Ur Creatinine 24 Hour Urine Total Protein 11/12/18 11/12/18 11/13/18 08:57 11:35 05:38 WBC RBC MCV MCH RDW Lymph % (Auto) [place] % (Auto) Lymph # Seg Neutrophils % Seg Neuts % (Manual) Lymphocytes % (Manual) Monocytes % (Manual) Nucleated RBC % Seg Neutrophils # Man Lymphocytes # (Manual) Monocytes # (Manual) PT INR POC ABG pH POC ABG pCO2 POC ABG pO2 ABG pO2 ABG HCO3 ABG Base Excess Sodium Potassium Chloride 97.3 L Carbon Dioxide 31 H BUN 33 H Creatinine 1.5 H Glucose 111 H POC Glucose 120 H 137 H Lactic Acid Calcium 7.8 L Phosphorus AST Total Creatine Kinase CK-MB (CK-2) Troponin T Total Protein Albumin LDL Cholesterol Direct HDL Cholesterol Lipase Urine Creatinine Ur Creatinine 24 Hour Urine Total Protein 11/13/18 11/14/18 11/15/18 05:38 06:07 06:11 WBC RBC MCV MCH RDW Lymph % (Auto) [place] % (Auto) Lymph # Seg Neutrophils % Seg Neuts % (Manual) Lymphocytes % (Manual) Monocytes % (Manual) Nucleated RBC % Seg Neutrophils # Man Lymphocytes # (Manual) Monocytes # (Manual) PT INR POC ABG pH POC ABG pCO2 POC ABG pO2 ABG pO2 ABG HCO3 ABG Base Excess Sodium 135 L Potassium Chloride 96.8 L Carbon Dioxide BUN 36 H Creatinine 1.9 H Glucose 117 H POC Glucose 128 H Lactic Acid Calcium 8.2 L Phosphorus AST Total Creatine Kinase CK-MB (CK-2) Troponin T Total Protein Albumin LDL Cholesterol Direct HDL Cholesterol Lipase 11 L Urine Creatinine Ur Creatinine 24 Hour Urine Total Protein 11/15/18 11/15/18 11/15/18 08:50 18:41 18:41 WBC RBC 3.51 L MCV 103 H MCH 34 H RDW 17.4 H Lymph % (Auto) 3.3 L [place] % (Auto) 9.2 H Lymph # 0.2 L Seg Neutrophils % 87.2 H Seg Neuts % (Manual) Lymphocytes % (Manual) Monocytes % (Manual) Nucleated RBC % Seg Neutrophils # Man Lymphocytes # (Manual) Monocytes # (Manual) PT INR POC ABG pH 7.533 H POC ABG pCO2 33.9 L POC ABG pO2 237 H ABG pO2 ABG HCO3 ABG Base Excess Sodium 136 L Potassium Chloride 95.3 L Carbon Dioxide BUN 46 H Creatinine 2.3 H Glucose POC Glucose Lactic Acid Calcium 8.3 L Phosphorus AST Total Creatine Kinase CK-MB (CK-2) Troponin T Total Protein 4.6 L Albumin 1.8 L LDL Cholesterol Direct HDL Cholesterol Lipase Urine Creatinine Ur Creatinine 24 Hour Urine Total Protein 11/15/18 11/15/18 11/16/18 18:41 18:41 03:53 WBC RBC MCV MCH RDW Lymph % (Auto) [place] % (Auto) Lymph # Seg Neutrophils % Seg Neuts % (Manual) Lymphocytes % (Manual) Monocytes % (Manual) Nucleated RBC % Seg Neutrophils # Man Lymphocytes # (Manual) Monocytes # (Manual) PT 18.6 H INR 1.59 H POC ABG pH 7.507 H POC ABG pCO2 34.9 L POC ABG pO2 133 H ABG pO2 ABG HCO3 ABG Base Excess Sodium Potassium Chloride Carbon Dioxide BUN Creatinine Glucose POC Glucose Lactic Acid Calcium Phosphorus AST Total Creatine Kinase 293 H CK-MB (CK-2) 5.6 H Troponin T 2.830 H* Total Protein Albumin LDL Cholesterol Direct HDL Cholesterol Lipase Urine Creatinine Ur Creatinine 24 Hour Urine Total Protein 11/16/18 11/16/18 11/16/18 05:35 05:35 09:26 WBC RBC 3.44 L MCV 103 H MCH 34 H RDW 17.3 H Lymph % (Auto) 2.5 L [place] % (Auto) 9.3 H Lymph # 0.2 L Seg Neutrophils % 87.9 H Seg Neuts % (Manual) Lymphocytes % (Manual) Monocytes % (Manual) Nucleated RBC % Seg Neutrophils # Man Lymphocytes # (Manual) Monocytes # (Manual) PT INR POC ABG pH POC ABG pCO2 POC ABG pO2 ABG pO2 ABG HCO3 ABG Base Excess Sodium 135 L Potassium Chloride 95.9 L Carbon Dioxide BUN 47 H Creatinine 2.2 H Glucose POC Glucose Lactic Acid Calcium 8.1 L Phosphorus 4.60 H AST Total Creatine Kinase CK-MB (CK-2) Troponin T Total Protein Albumin LDL Cholesterol Direct HDL Cholesterol Lipase Urine Creatinine 103.3 H Ur Creatinine 24 Hour Urine Total Protein 11/16/18 11/17/18 11/18/18 09:26 10:42 04:45 WBC RBC 3.41 L 3.50 L MCV 104 H 104 H MCH 34 H 34 H RDW 17.4 H 17.7 H Lymph % (Auto) 4.1 L 4.9 L [place] % (Auto) 9.8 H 7.6 H Lymph # 0.2 L 0.3 L Seg Neutrophils % 85.8 H 87.1 H Seg Neuts % (Manual) Lymphocytes % (Manual) Monocytes % (Manual) Nucleated RBC % Seg Neutrophils # Man Lymphocytes # (Manual) Monocytes # (Manual) PT INR POC ABG pH POC ABG pCO2 POC ABG pO2 ABG pO2 ABG HCO3 ABG Base Excess Sodium Potassium Chloride Carbon Dioxide BUN Creatinine Glucose POC Glucose Lactic Acid Calcium Phosphorus AST Total Creatine Kinase CK-MB (CK-2) Troponin T Total Protein Albumin LDL Cholesterol Direct HDL Cholesterol Lipase Urine Creatinine 102.6 H Ur Creatinine 24 Hour Urine Total Protein 28 H 11/18/18 11/19/18 11/19/18 04:45 06:48 06:48 WBC RBC 3.63 L MCV 105 H MCH 35 H RDW 17.2 H Lymph % (Auto) 4.0 L [place] % (Auto) Lymph # 0.3 L Seg Neutrophils % 89.3 H Seg Neuts % (Manual) Lymphocytes % (Manual) Monocytes % (Manual) Nucleated RBC % Seg Neutrophils # Man Lymphocytes # (Manual) Monocytes # (Manual) PT INR POC ABG pH POC ABG pCO2 POC ABG pO2 ABG pO2 ABG HCO3 ABG Base Excess Sodium 135 L Potassium 3.5 L Chloride 95.9 L 95.4 L Carbon Dioxide BUN 58 H 64 H Creatinine 2.7 H 3.3 H Glucose 137 H 102 H POC Glucose Lactic Acid Calcium 7.7 L 8.0 L Phosphorus 5.00 H 6.10 H D AST Total Creatine Kinase CK-MB (CK-2) Troponin T Total Protein Albumin LDL Cholesterol Direct HDL Cholesterol Lipase Urine Creatinine Ur Creatinine 24 Hour Urine Total Protein 11/19/18 11/20/18 11/20/18 Unknown 01:15 04:30 WBC RBC 3.37 L MCV 105 H MCH 34 H RDW 17.5 H Lymph % (Auto) [place] % (Auto) Lymph # Seg Neutrophils % Seg Neuts % (Manual) 93.0 H Lymphocytes % (Manual) 3.0 L Monocytes % (Manual) Nucleated RBC % 1.0 H Seg Neutrophils # Man 8.1 H Lymphocytes # (Manual) 0.3 L Monocytes # (Manual) PT 23.2 H INR 2.11 H POC ABG pH POC ABG pCO2 POC ABG pO2 ABG pO2 ABG HCO3 ABG Base Excess Sodium Potassium Chloride Carbon Dioxide BUN Creatinine Glucose POC Glucose Lactic Acid 4.30 H* Calcium Phosphorus AST Total Creatine Kinase CK-MB (CK-2) Troponin T Total Protein Albumin LDL Cholesterol Direct HDL Cholesterol Lipase Urine Creatinine Ur Creatinine 24 Hour Urine Total Protein 11/20/18 11/20/18 11/20/18 04:30 19:25 21:33 WBC RBC MCV MCH RDW Lymph % (Auto) [place] % (Auto) Lymph # Seg Neutrophils % Seg Neuts % (Manual) Lymphocytes % (Manual) Monocytes % (Manual) Nucleated RBC % Seg Neutrophils # Man Lymphocytes # (Manual) Monocytes # (Manual) PT INR POC ABG pH 7.228 L POC ABG pCO2 30.5 L POC ABG pO2 160 H ABG pO2 ABG HCO3 ABG Base Excess Sodium 136 L Potassium Chloride 95.5 L Carbon Dioxide BUN 72 H Creatinine 3.6 H Glucose POC Glucose 106 H Lactic Acid Calcium 8.1 L Phosphorus 6.60 H AST Total Creatine Kinase CK-MB (CK-2) Troponin T Total Protein Albumin LDL Cholesterol Direct HDL Cholesterol Lipase Urine Creatinine Ur Creatinine 24 Hour Urine Total Protein 11/20/18 11/20/18 11/20/18 21:50 22:11 22:20 WBC RBC MCV MCH RDW Lymph % (Auto) [place] % (Auto) Lymph # Seg Neutrophils % Seg Neuts % (Manual) Lymphocytes % (Manual) Monocytes % (Manual) Nucleated RBC % Seg Neutrophils # Man Lymphocytes # (Manual) Monocytes # (Manual) PT INR POC ABG pH POC ABG pCO2 POC ABG pO2 ABG pO2 ABG HCO3 ABG Base Excess Sodium Potassium Chloride Carbon Dioxide BUN Creatinine Glucose POC Glucose 64 L 110 H Lactic Acid 8.40 H* Calcium Phosphorus AST Total Creatine Kinase CK-MB (CK-2) Troponin T Total Protein Albumin LDL Cholesterol Direct HDL Cholesterol Lipase Urine Creatinine Ur Creatinine 24 Hour Urine Total Protein 11/20/18 11/20/18 11/21/18 22:20 Unknown 04:52 WBC RBC MCV MCH RDW Lymph % (Auto) [place] % (Auto) Lymph # Seg Neutrophils % Seg Neuts % (Manual) Lymphocytes % (Manual) Monocytes % (Manual) Nucleated RBC % Seg Neutrophils # Man Lymphocytes # (Manual) Monocytes # (Manual) PT INR POC ABG pH 7.643 H POC ABG pCO2 POC ABG pO2 161 H ABG pO2 ABG HCO3 ABG Base Excess Sodium 134 L Potassium 5.5 H D Chloride 93.4 L Carbon Dioxide 17 L D BUN 72 H Creatinine 4.2 H Glucose POC Glucose Lactic Acid Calcium 8.0 L Phosphorus AST 57 H Total Creatine Kinase CK-MB (CK-2) Troponin T 3.550 H* Total Protein 4.2 L Albumin 2.3 L LDL Cholesterol Direct HDL Cholesterol Lipase Urine Creatinine Ur Creatinine 24 Hour Urine Total Protein 11/21/18 11/21/18 11/21/18 05:55 05:55 05:55 WBC 12.2 H RBC MCV 103 H MCH 34 H RDW 16.9 H Lymph % (Auto) [place] % (Auto) Lymph # Seg Neutrophils % Seg Neuts % (Manual) 96.0 H Lymphocytes % (Manual) 2.0 L Monocytes % (Manual) Nucleated RBC % Seg Neutrophils # Man 11.7 H Lymphocytes # (Manual) 0.2 L Monocytes # (Manual) PT INR POC ABG pH POC ABG pCO2 POC ABG pO2 ABG pO2 ABG HCO3 ABG Base Excess Sodium 136 L Potassium Chloride 94.2 L Carbon Dioxide BUN 76 H Creatinine 4.3 H Glucose 134 H POC Glucose Lactic Acid 2.70 H* Calcium 7.9 L Phosphorus 5.90 H AST Total Creatine Kinase CK-MB (CK-2) Troponin T Total Protein Albumin LDL Cholesterol Direct HDL Cholesterol Lipase Urine Creatinine Ur Creatinine 24 Hour Urine Total Protein 11/21/18 11/21/18 11/21/18 06:00 06:14 07:53 WBC RBC MCV MCH RDW Lymph % (Auto) [place] % (Auto) Lymph # Seg Neutrophils % Seg Neuts % (Manual) Lymphocytes % (Manual) Monocytes % (Manual) Nucleated RBC % Seg Neutrophils # Man Lymphocytes # (Manual) Monocytes # (Manual) PT INR POC ABG pH 7.516 H POC ABG pCO2 30.4 L POC ABG pO2 118 H ABG pO2 ABG HCO3 ABG Base Excess Sodium Potassium Chloride Carbon Dioxide BUN Creatinine Glucose POC Glucose 154 H Lactic Acid 2.50 H* Calcium Phosphorus AST Total Creatine Kinase CK-MB (CK-2) Troponin T Total Protein Albumin LDL Cholesterol Direct HDL Cholesterol Lipase Urine Creatinine Ur Creatinine 24 Hour Urine Total Protein 11/21/18 11/21/18 11/22/18 13:08 23:58 05:07 WBC RBC MCV MCH RDW Lymph % (Auto) [place] % (Auto) Lymph # Seg Neutrophils % Seg Neuts % (Manual) Lymphocytes % (Manual) Monocytes % (Manual) Nucleated RBC % Seg Neutrophils # Man Lymphocytes # (Manual) Monocytes # (Manual) PT INR POC ABG pH 7.452 H POC ABG pCO2 POC ABG pO2 79 L ABG pO2 ABG HCO3 ABG Base Excess Sodium Potassium Chloride Carbon Dioxide BUN Creatinine Glucose POC Glucose 115 H 121 H Lactic Acid Calcium Phosphorus AST Total Creatine Kinase CK-MB (CK-2) Troponin T Total Protein Albumin LDL Cholesterol Direct HDL Cholesterol Lipase Urine Creatinine Ur Creatinine 24 Hour Urine Total Protein 11/22/18 11/22/18 11/22/18 05:35 05:35 05:44 WBC RBC 3.00 L MCV 102 H MCH 34 H RDW 17.2 H Lymph % (Auto) [place] % (Auto) Lymph # Seg Neutrophils % Seg Neuts % (Manual) 89.0 H Lymphocytes % (Manual) 2.0 L Monocytes % (Manual) 8.0 H Nucleated RBC % Seg Neutrophils # Man 9.7 H Lymphocytes # (Manual) 0.2 L Monocytes # (Manual) 0.9 H PT INR POC ABG pH POC ABG pCO2 POC ABG pO2 ABG pO2 ABG HCO3 ABG Base Excess Sodium 136 L Potassium 3.5 L Chloride 97.0 L Carbon Dioxide BUN 78 H Creatinine 4.3 H Glucose 159 H POC Glucose 119 H Lactic Acid Calcium 7.3 L Phosphorus AST Total Creatine Kinase CK-MB (CK-2) Troponin T Total Protein Albumin LDL Cholesterol Direct HDL Cholesterol Lipase Urine Creatinine Ur Creatinine 24 Hour Urine Total Protein 11/23/18 11/23/18 11/24/18 03:29 04:22 04:19 WBC RBC MCV MCH RDW Lymph % (Auto) [place] % (Auto) Lymph # Seg Neutrophils % Seg Neuts % (Manual) Lymphocytes % (Manual) Monocytes % (Manual) Nucleated RBC % Seg Neutrophils # Man Lymphocytes # (Manual) Monocytes # (Manual) PT INR POC ABG pH 7.530 H 7.492 H POC ABG pCO2 32.3 L POC ABG pO2 ABG pO2 ABG HCO3 ABG Base Excess Sodium Potassium 3.2 L Chloride 95.4 L Carbon Dioxide BUN 83 H Creatinine 5.0 H Glucose POC Glucose Lactic Acid Calcium 7.9 L Phosphorus AST Total Creatine Kinase CK-MB (CK-2) Troponin T Total Protein Albumin LDL Cholesterol Direct HDL Cholesterol Lipase Urine Creatinine Ur Creatinine 24 Hour Urine Total Protein 11/24/18 11/25/18 11/25/18 Unknown 03:57 05:18 WBC RBC MCV MCH RDW Lymph % (Auto) [place] % (Auto) Lymph # Seg Neutrophils % Seg Neuts % (Manual) Lymphocytes % (Manual) Monocytes % (Manual) Nucleated RBC % Seg Neutrophils # Man Lymphocytes # (Manual) Monocytes # (Manual) PT INR POC ABG pH 7.453 H POC ABG pCO2 POC ABG pO2 ABG pO2 ABG HCO3 ABG Base Excess Sodium Potassium 3.1 L Chloride 95.3 L Carbon Dioxide BUN 86 H Creatinine 5.2 H Glucose POC Glucose 140 H Lactic Acid Calcium 7.9 L Phosphorus AST Total Creatine Kinase CK-MB (CK-2) Troponin T Total Protein Albumin LDL Cholesterol Direct HDL Cholesterol Lipase Urine Creatinine Ur Creatinine 24 Hour Urine Total Protein 11/25/18 11/25/18 11/25/18 05:40 12:26 15:16 WBC RBC MCV MCH RDW Lymph % (Auto) [place] % (Auto) Lymph # Seg Neutrophils % Seg Neuts % (Manual) Lymphocytes % (Manual) Monocytes % (Manual) Nucleated RBC % Seg Neutrophils # Man Lymphocytes # (Manual) Monocytes # (Manual) PT INR POC ABG pH POC ABG pCO2 POC ABG pO2 ABG pO2 ABG HCO3 ABG Base Excess Sodium 135 L Potassium Chloride 94.5 L Carbon Dioxide BUN 86 H Creatinine 5.4 H Glucose 118 H POC Glucose 120 H Lactic Acid Calcium 7.9 L Phosphorus AST Total Creatine Kinase CK-MB (CK-2) Troponin T Total Protein Albumin LDL Cholesterol Direct HDL Cholesterol Lipase Urine Creatinine 28.7 H Ur Creatinine 24 Hour 0.4 L Urine Total Protein 11/25/18 11/26/18 11/26/18 16:59 04:25 05:30 WBC RBC 3.10 L MCV 101 H MCH 34 H RDW 16.6 H Lymph % (Auto) [place] % (Auto) Lymph # Seg Neutrophils % Seg Neuts % (Manual) Lymphocytes % (Manual) Monocytes % (Manual) Nucleated RBC % Seg Neutrophils # Man Lymphocytes # (Manual) Monocytes # (Manual) PT INR POC ABG pH POC ABG pCO2 POC ABG pO2 ABG pO2 94.7 H ABG HCO3 27.8 H ABG Base Excess 3.3 H Sodium Potassium Chloride Carbon Dioxide BUN Creatinine Glucose POC Glucose 153 H Lactic Acid Calcium Phosphorus AST Total Creatine Kinase CK-MB (CK-2) Troponin T Total Protein Albumin LDL Cholesterol Direct HDL Cholesterol Lipase Urine Creatinine Ur Creatinine 24 Hour Urine Total Protein 11/26/18 11/26/18 11/26/18 05:39 05:40 11:32 WBC RBC MCV MCH RDW Lymph % (Auto) [place] % (Auto) Lymph # Seg Neutrophils % Seg Neuts % (Manual) Lymphocytes % (Manual) Monocytes % (Manual) Nucleated RBC % Seg Neutrophils # Man Lymphocytes # (Manual) Monocytes # (Manual) PT INR POC ABG pH POC ABG pCO2 POC ABG pO2 ABG pO2 ABG HCO3 ABG Base Excess Sodium Potassium 3.0 L Chloride 94.2 L Carbon Dioxide BUN 87 H Creatinine 5.2 H Glucose 147 H POC Glucose 130 H 152 H Lactic Acid Calcium 8.1 L Phosphorus AST Total Creatine Kinase CK-MB (CK-2) Troponin T Total Protein Albumin LDL Cholesterol Direct HDL Cholesterol Lipase Urine Creatinine Ur Creatinine 24 Hour Urine Total Protein 11/26/18 11/26/18 11/27/18 18:10 23:25 04:00 WBC RBC 3.12 L MCV 103 H MCH 34 H RDW 17.6 H Lymph % (Auto) [place] % (Auto) Lymph # Seg Neutrophils % Seg Neuts % (Manual) Lymphocytes % (Manual) Monocytes % (Manual) Nucleated RBC % Seg Neutrophils # Man Lymphocytes # (Manual) Monocytes # (Manual) PT INR POC ABG pH POC ABG pCO2 POC ABG pO2 ABG pO2 ABG HCO3 ABG Base Excess Sodium Potassium Chloride Carbon Dioxide BUN Creatinine Glucose POC Glucose 164 H 126 H Lactic Acid Calcium Phosphorus AST Total Creatine Kinase CK-MB (CK-2) Troponin T Total Protein Albumin LDL Cholesterol Direct HDL Cholesterol Lipase Urine Creatinine Ur Creatinine 24 Hour Urine Total Protein 11/27/18 11/27/18 11/27/18 04:00 05:48 11:55 WBC RBC MCV MCH RDW Lymph % (Auto) [place] % (Auto) Lymph # Seg Neutrophils % Seg Neuts % (Manual) Lymphocytes % (Manual) Monocytes % (Manual) Nucleated RBC % Seg Neutrophils # Man Lymphocytes # (Manual) Monocytes # (Manual) PT INR POC ABG pH POC ABG pCO2 POC ABG pO2 ABG pO2 ABG HCO3 ABG Base Excess Sodium Potassium 3.5 L Chloride 97.0 L Carbon Dioxide 33 H BUN 73 H Creatinine 4.6 H Glucose 119 H POC Glucose 124 H 138 H Lactic Acid Calcium 8.0 L Phosphorus AST Total Creatine Kinase CK-MB (CK-2) Troponin T Total Protein Albumin LDL Cholesterol Direct HDL Cholesterol Lipase Urine Creatinine Ur Creatinine 24 Hour Urine Total Protein
--- NOTE | 2018-11-27 13:54 | Progress Note ---
Assessment and Plan Acute on Chronic systolic heart failure Suspect non-compliance Multiple HF admission Lower GI bleed - per GI s/p Cardiopulmonary arrest device interrogation revealed no activity Acute renal failure -per Nephrology initiated on HD Ascites Patient had paracentesis in previous admissions Hx of LUE DVT Hx of coronary artery disease cardiac cath 03/2018 revealed patent SVG to LAD, patent SVG to OM, patent SVG to PDA and patent diagonal stent, LVEF 10-15%. Non-specific troponin Hx of Ischemic cardiomyopathy ejection fraction 10-15% by echo 08/2018 Presence of single chamber cardiac defibrillator underlying paroxysmal atrial fibrillation. Eliquis discontinued due to lower GI bleed. on amiodarone and metoprolol for suppression of wide complex tachycardia and rate control of afib Tobacco abuse Subjective Date of service: 11/27/18 Principal diagnosis: blood in stool Interval history: Patient is alert but remains on the vent. She has been initiated on HD. Patient is planned for PEG/trach tomorrow. Objective Vital Signs Temp Pulse Resp BP Pulse Ox Pulse Ox 11/27/18 13:24 75 116/59 11/27/18 13:15 77 122/58 11/27/18 13:09 84 134/52 100 11/27/18 13:02 79 134/56 11/27/18 12:45 78 122/54 11/27/18 12:30 76 116/57 11/27/18 12:15 76 15 118/62 99 11/27/18 12:00 98.1 F 76 15 127/61 100 11/27/18 11:45 76 15 121/60 99 11/27/18 11:31 75 15 114/59 99 11/27/18 11:30 73 114/59 11/27/18 11:15 75 16 124/60 99 11/27/18 11:00 76 15 128/62 99 11/27/18 10:45 79 141/68 11/27/18 10:34 99.0 F 78 13 131/68 99 11/27/18 10:30 80 15 129/61 100 11/27/18 10:23 78 131/96 11/27/18 10:01 79 16 129/61 100 11/27/18 09:30 78 13 137/59 100 11/27/18 09:03 83 139/58 11/27/18 09:00 72 14 139/58 100 11/27/18 08:50 75 141/68 99 11/27/18 08:30 77 14 125/70 100 11/27/18 08:00 97.8 F 86 15 124/66 100 11/27/18 07:30 75 14 129/62 99 11/27/18 07:00 72 14 122/63 99 11/27/18 06:30 76 14 120/57 99 11/27/18 06:00 71 13 110/62 100 11/27/18 05:30 74 14 121/61 99 11/27/18 05:00 83 14 110/56 99 11/27/18 04:30 71 14 101/59 99 11/27/18 04:13 73 112/63 99 11/27/18 04:01 78 14 112/63 99 11/27/18 04:00 99.0 F 11/27/18 03:30 71 13 108/66 100 11/27/18 03:00 72 14 111/64 100 11/27/18 02:31 75 14 121/63 100 11/27/18 02:00 80 12 107/60 99 11/27/18 01:31 88 12 103/59 99 11/27/18 01:01 82 14 105/60 100 11/27/18 00:31 74 14 98/62 100 11/27/18 00:00 70 14 98/62 99 11/26/18 23:42 99.3 F 11/26/18 23:40 72 126/61 99 11/26/18 23:30 73 14 125/61 100 11/26/18 23:00 69 14 120/61 99 11/26/18 22:31 71 14 120/63 100 11/26/18 22:01 77 14 99/62 99 11/26/18 21:31 80 15 95/59 99 11/26/18 21:01 73 14 90/60 99 11/26/18 20:30 70 14 104/59 99 11/26/18 20:01 85 15 96/60 99 11/26/18 20:00 98.8 F 11/26/18 19:30 92 H 14 92/71 100 11/26/18 19:23 85 14 97/67 100 11/26/18 19:10 96 H 104/59 99 11/26/18 19:01 93 H 20 104/59 99 11/26/18 18:44 97.2 F L 88 13 106/65 11/26/18 18:43 93 H 106/65 11/26/18 18:30 86 17 106/65 99 11/26/18 18:15 76 98/56 11/26/18 18:01 76 103/65 11/26/18 18:00 72 15 103/65 99 11/26/18 17:45 80 110/60 11/26/18 17:30 100 H 18 102/60 99 11/26/18 17:15 76 114/64 11/26/18 17:00 74 14 123/58 99 11/26/18 16:45 85 125/65 11/26/18 16:30 92 H 16 120/60 97 11/26/18 16:15 85 104/61 11/26/18 16:01 100 H 17 107/63 98 11/26/18 16:00 97.7 F 110 H 120/66 98 11/26/18 15:45 97.2 F L 100 H 17 107/63 99 11/26/18 15:31 109 H 18 109/68 98 11/26/18 15:08 109 H 120/66 97 11/26/18 15:01 97 H 16 120/66 99 11/26/18 14:31 102 H 18 106/61 99 11/26/18 14:01 101 H 19 104/77 99 - Physical Examination General: Other (on the vent) HEENT: Positive: PERRL Neck: Positive: trachea midline Cardiac: Positive: irregularly irregular Neuro: Positive: Grossly Intact Extremities: Present: +1 Edema - Labs and Meds CBC 11/27/18 Range/Units 04:00 WBC 10.1 (4.5-11.0) K/mm3 RBC 3.12 L (3.65-5.03) M/mm3 Hgb 10.7 (10.1-14.3) gm/dl Hct 32.0 (30.3-42.9) % Plt Count 165 (140-440) K/mm3 Comprehensive Metabolic Panel 11/27/18 Range/Units 04:00 Sodium 140 (137-145) mmol/L Potassium 3.5 L (3.6-5.0) mmol/L Chloride 97.0 L (98-107) mmol/L Carbon Dioxide 33 H (22-30) mmol/L BUN 73 H (7-17) mg/dL Creatinine 4.6 H (0.7-1.2) mg/dL Glucose 119 H (65-100) mg/dL Calcium 8.0 L (8.4-10.2) mg/dL
[2018-11-27] MEDS: MYLICON PO PRN (14:39)
[2018-11-27] MEDS: ZOFRAN IV PRN (14:39)
[2018-11-28] MEDS: DILAUDID IV PRN ×2 (02:13→10:19)
[2018-11-28 04:37] LABS: Hematocrit 33.2 % (30.3-42.9); Mean Corpuscular HGB Conc 33 % (30-34); Mean Corpuscular Volume 103 fl (79-97); Platelet Count 159 K/mm3 (140-440); Red Blood Count 3.24 M/mm3 (3.65-5.03)
--- NOTE | 2018-11-28 09:53 | Progress Note ---
Assessment and Plan Acute on Chronic systolic heart failure - resolved Suspect non-compliance Multiple HF admission Lower GI bleed - per GI s/p Cardiopulmonary arrest device interrogation revealed no activity Acute renal failure -per Nephrology initiated on HD Ascites Patient had paracentesis in previous admissions Hx of LUE DVT Hx of coronary artery disease cardiac cath 03/2018 revealed patent SVG to LAD, patent SVG to OM, patent SVG to PDA and patent diagonal stent, LVEF 10-15%. Non-specific troponin Hx of Ischemic cardiomyopathy ejection fraction 10-15% by echo 08/2018 Presence of single chamber cardiac defibrillator underlying paroxysmal atrial fibrillation. Eliquis discontinued due to lower GI bleed. on amiodarone and metoprolol for suppression of wide complex tachycardia and rate control of afib Tobacco abuse Recommendations: Continue supportive care Awaiting trach and PEG placement Subjective Date of service: 11/28/18 Principal diagnosis: blood in stool Interval history: No interval changes cardiac recinos Objective Vital Signs Temp Pulse Resp BP Pulse Ox Pulse Ox 11/28/18 08:15 95 H 19 100/58 100 11/28/18 08:00 95 H 18 100/58 100 11/28/18 07:52 100 11/28/18 07:45 94 H 16 99/51 100 11/28/18 07:40 90 13 99/51 100 11/28/18 07:31 94 H 14 99/51 100 11/28/18 07:15 86 15 92/56 100 11/28/18 07:01 94 H 14 100/51 100 11/28/18 06:45 94 H 13 117/59 100 11/28/18 06:31 93 H 14 117/59 100 11/28/18 06:15 94 H 18 100/58 100 11/28/18 06:00 93 H 13 100/58 100 11/28/18 05:45 93 H 13 94/55 100 11/28/18 05:31 93 H 14 108/57 99 11/28/18 05:15 84 14 108/57 100 11/28/18 05:00 94 H 14 107/57 100 11/28/18 04:45 78 14 101/56 100 11/28/18 04:39 70 117/60 100 11/28/18 04:30 84 14 101/56 100 11/28/18 04:15 79 14 118/56 100 11/28/18 04:00 85 14 118/57 100 11/28/18 03:45 76 14 119/59 100 11/28/18 03:30 79 14 119/59 100 11/28/18 03:15 97.4 F L 74 14 122/55 100 11/28/18 03:00 83 14 108/59 100 11/28/18 02:45 75 14 115/56 100 11/28/18 02:30 78 14 109/53 100 11/28/18 02:15 90 14 107/54 100 11/28/18 02:00 93 H 14 107/54 99 11/28/18 01:45 84 14 99/54 100 11/28/18 01:30 93 H 14 99/54 100 11/28/18 01:15 84 14 96/51 100 11/28/18 01:01 86 14 81/48 100 11/28/18 00:45 93 H 13 81/48 100 11/28/18 00:30 92 H 14 85/52 99 11/28/18 00:15 93 H 14 117/60 99 11/28/18 00:03 104 H 117/60 100 11/28/18 00:01 105 H 14 141/48 100 11/27/18 23:45 105 H 16 136/55 100 11/27/18 23:30 106 H 19 136/55 99 11/27/18 23:29 99.5 F 11/27/18 23:15 112 H 15 100/55 99 11/27/18 23:01 105 H 16 100/55 99 11/27/18 22:45 93 H 16 109/61 100 11/27/18 22:31 99 H 15 109/61 100 11/27/18 22:15 105 H 16 137/70 100 11/27/18 22:01 106 H 15 125/54 100 11/27/18 21:49 92 H 16 125/54 100 11/27/18 21:45 93 H 15 127/59 100 11/27/18 21:30 92 H 14 127/59 100 11/27/18 21:15 91 H 14 114/54 99 11/27/18 21:02 80 114/54 11/27/18 21:00 92 H 17 105/60 99 11/27/18 20:45 83 14 105/60 99 11/27/18 20:31 93 H 15 91/55 98 11/27/18 20:15 88 19 91/55 98 11/27/18 20:00 85 15 104/56 99 11/27/18 19:57 99.1 F 11/27/18 19:45 90 19 124/53 98 11/27/18 19:30 92 H 20 124/53 100 11/27/18 19:24 92 H 16 104/47 98 11/27/18 19:15 92 H 18 115/41 98 11/27/18 19:01 95 H 16 115/41 98 11/27/18 18:45 91 H 20 109/49 97 11/27/18 18:30 92 H 19 109/49 99 11/27/18 18:15 91 H 16 94/55 99 11/27/18 18:00 90 15 94/55 99 11/27/18 17:50 94/55 100 11/27/18 17:45 87 15 88/67 100 11/27/18 17:31 100 H 11 L 116/52 100 11/27/18 17:15 77 15 123/57 100 11/27/18 17:01 88 14 123/57 99 11/27/18 16:45 89 19 122/61 100 11/27/18 16:30 70 14 122/61 100 11/27/18 16:15 77 15 122/59 100 11/27/18 16:00 97.9 F 70 15 122/59 100 11/27/18 15:45 74 15 120/55 100 11/27/18 15:30 75 14 115/53 99 11/27/18 15:15 73 14 121/61 99 11/27/18 15:00 92 H 15 111/63 99 11/27/18 14:45 77 14 101/61 99 11/27/18 14:30 69 14 113/52 99 11/27/18 14:15 73 14 110/60 98 11/27/18 14:00 74 14 117/57 100 11/27/18 13:45 75 16 121/59 100 11/27/18 13:30 75 16 116/59 99 11/27/18 13:24 75 116/59 11/27/18 13:15 77 17 122/58 99 11/27/18 13:09 84 134/52 100 11/27/18 13:02 79 134/56 11/27/18 13:00 77 17 134/56 99 11/27/18 12:45 78 18 122/54 99 11/27/18 12:30 76 15 116/57 99 11/27/18 12:15 76 15 118/62 99 11/27/18 12:00 98.1 F 76 15 127/61 100 11/27/18 11:45 76 15 121/60 99 11/27/18 11:31 75 15 114/59 99 11/27/18 11:30 73 114/59 11/27/18 11:15 75 16 124/60 99 11/27/18 11:00 76 15 128/62 99 11/27/18 10:45 79 141/68 11/27/18 10:34 99.0 F 78 13 131/68 99 11/27/18 10:30 80 15 129/61 100 11/27/18 10:23 78 131/96 11/27/18 10:01 79 16 129/61 100 - Physical Examination General: Other (on the vent) HEENT: Positive: PERRL Neck: Positive: trachea midline Cardiac: Positive: irregularly irregular Lungs: Positive: Ventilated Respirations Neuro: Positive: Grossly Intact Abdomen: Positive: Soft, Active Bowel Sounds Extremities: Present: +1 Edema - Labs and Meds CBC 11/28/18 Range/Units 04:00 WBC 10.5 (4.5-11.0) K/mm3 RBC 3.24 L (3.65-5.03) M/mm3 Hgb 11.0 (10.1-14.3) gm/dl Hct 33.2 (30.3-42.9) % Plt Count 159 (140-440) K/mm3 Comprehensive Metabolic Panel 11/28/18 Range/Units 04:00 Sodium 139 (137-145) mmol/L Potassium 3.7 (3.6-5.0) mmol/L Chloride 97.7 L (98-107) mmol/L Carbon Dioxide 31 H (22-30) mmol/L BUN 61 H (7-17) mg/dL Creatinine 3.8 H (0.7-1.2) mg/dL Glucose 125 H (65-100) mg/dL Calcium 8.0 L (8.4-10.2) mg/dL
[2018-11-28] MEDS: PREVACID SOLUTAB FEEDTUBE SCH (10:18)
[2018-11-28] MEDS: HALFPRIN EC PO SCH (10:18)
[2018-11-28] MEDS: CORDARONE PO SCH (10:18)
[2018-11-28] MEDS: LOPRESSOR PO SCH (10:19)
[2018-11-28] MEDS: ZOLOFT PO SCH (10:19)
[2018-11-28] MEDS: WELLBUTRIN PO SCH (10:21)
[2018-11-28] MEDS: CARAFATE PO SCH ×3 (10:27→19:31)
[2018-11-28] MEDS: LOPRESSOR IV PRN (10:31)
[2018-11-28 10:58] LABS: INR 1.35 (0.87-1.13)
[2018-11-28] MEDS ORDERED: NACL 0.9% 100 ML IV PRN ×2 (12:00→23:20)
--- NOTE | 2018-11-28 12:59 | Progress Note ---
Assessment and Plan Imp: 1. S/p CP arrest x 2 2. ICMP 3. A/C systolic CHF 4. KERWIN 5. Morbid obesity 6. HUNTER, noncompliant w/ CPAP 7. CAD 8. s/p GI bleed 9. Acute respiratory failure, hypoxia Rec: 1. Cardiac optimization 2. For trach/PEG; consider that trach should possibly be permanent for definitive treatment of HUNTER (she is noncompliant with CPAP) 3. Weight loss 4. HD per renal 5. TFs, GI/DVT PPx 6. LTAC placement CCt 31 minutes Plan of care reviewed w/ patient, she understands/agrees Subjective Date of service: 11/28/18 Principal diagnosis: blood in stool Interval history: Intubated. On PSV 03/20 and tolerating adequately. For trach/peg today. Awake, alert, follows commands. Active Medications Albuterol (Proventil) 2.5 mg IH Q4HRT PRN PRN Reason: Shortness Of Breath Last Admin: 11/20/18 22:07 Dose: 2.5 mg Documented by: Amiodarone HCl (Cordarone) 200 mg PO BID [facility] Last Admin: 11/28/18 10:18 Dose: 200 mg Documented by: Lipase/Protease/Amylase (Pancreaze Dr 10,500 Unit) 1 each FEEDTUBE PRN PRN PRN Reason: For Clogged Feeding Tube Aspirin (Halfprin Ec) 81 mg PO DAILY [facility] Last Admin: 11/28/18 10:18 Dose: 81 mg Documented by: Atorvastatin Calcium (Lipitor) 40 mg PO QHS [facility] Last Admin: 11/27/18 21:02 Dose: 40 mg Documented by: Bupropion HCl (Wellbutrin) 150 mg PO BID [facility] Last Admin: 11/28/18 10:21 Dose: 150 mg Documented by: Dextrose (D50w (25gm) Syringe) 50 ml IV PRN PRN PRN Reason: Hypoglycemia Hydromorphone HCl (Dilaudid) 0.5 mg IV Q3H PRN PRN Reason: Pain , Severe (7-10) Last Admin: 11/28/18 10:19 Dose: 0.5 mg Documented by: Hydrophilic Ointment (Vaseline Lip Therapy) 1 applic TP Q2HR PRN PRN Reason: Dry Lips Last Admin: 11/27/18 09:04 Dose: 1 applic Documented by: Sodium Chloride (Nacl 0.9%) 100 mls @ 999 mls/hr IV ANGEL PRN PRN Reason: Hypotension Lansoprazole (Prevacid Solutab) 30 mg FEEDTUBE QDAY [facility] Last Admin: 11/28/18 10:18 Dose: 30 mg Documented by: Metoprolol Tartrate (Lopressor) 2.5 mg IV Q6HR PRN PRN Reason: Tachyarrhythmias Last Admin: 11/28/18 10:31 Dose: 2.5 mg Documented by: Metoprolol Tartrate (Lopressor) 12.5 mg PO BID [facility] Last Admin: 11/28/18 10:19 Dose: 12.5 mg Documented by: Midazolam HCl (Versed) 2 mg IV Q10MIN PRN PRN Reason: Sedation Last Admin: 11/21/18 04:08 Dose: 2 mg Documented by: Multi-Ingred Cream/Lotion/Oil/Oint (Artificial Tears Ophth Oint) 1 applic OU Q4HR PRN PRN Reason: Dry Eye(s) Ondansetron HCl (Zofran) 4 mg IV Q8H PRN PRN Reason: Nausea And Vomiting Last Admin: 11/27/18 14:39 Dose: 4 mg Documented by: Polyethylene Glycol (Miralax [id number]) 17 gm PO BID PRN PRN Reason: Constipation Sertraline HCl (Zoloft) 50 mg PO DAILY [facility] Last Admin: 11/28/18 10:19 Dose: 50 mg Documented by: Simethicone (Mylicon) 80 mg PO Q6H PRN PRN Reason: Gas pain Last Admin: 11/27/18 14:39 Dose: 80 mg Documented by: Simple Syrup (Simple Syrup) 15 ml FEEDTUBE PRN PRN PRN Reason: Hypoglycemia Simple Syrup (Simple Syrup) 30 ml FEEDTUBE PRN PRN PRN Reason: Hypoglycemia Sodium Bicarbonate (Sodium Bicarbonate) 325 mg FEEDTUBE PRN PRN PRN Reason: For Clogged Feeding Tube Sucralfate (Carafate) 1 gm PO Q6HR [facility] Last Admin: 11/28/18 14:35 Dose: Not Given Documented by: Objective Vital Signs - 12hr 11/28/18 11/28/18 11/28/18 01:01 01:15 01:30 Temperature Pulse Rate 86 84 93 H Respiratory 14 14 14 Rate Blood Pressure 81/48 96/51 99/54 O2 Sat by Pulse 100 100 100 Oximetry 11/28/18 11/28/18 11/28/18 01:45 02:00 02:15 Temperature Pulse Rate 84 93 H 90 Respiratory 14 14 14 Rate Blood Pressure 99/54 107/54 107/54 O2 Sat by Pulse 100 99 100 Oximetry 11/28/18 11/28/18 11/28/18 02:30 02:45 03:00 Temperature Pulse Rate 78 75 83 Respiratory 14 14 14 Rate Blood Pressure 109/53 115/56 108/59 O2 Sat by Pulse 100 100 100 Oximetry 11/28/18 11/28/18 11/28/18 03:15 03:30 03:45 Temperature 97.4 F L Pulse Rate 74 79 76 Respiratory 14 14 14 Rate Blood Pressure 122/55 119/59 119/59 O2 Sat by Pulse 100 100 100 Oximetry 11/28/18 11/28/18 11/28/18 04:00 04:15 04:30 Temperature Pulse Rate 85 79 84 Respiratory 14 14 14 Rate Blood Pressure 118/57 118/56 101/56 O2 Sat by Pulse 100 100 100 Oximetry 11/28/18 11/28/18 11/28/18 04:39 04:45 05:00 Temperature Pulse Rate 70 78 94 H Respiratory 14 14 Rate Blood Pressure 117/60 101/56 107/57 O2 Sat by Pulse 100 100 100 Oximetry 11/28/18 11/28/18 11/28/18 05:15 05:31 05:45 Temperature Pulse Rate 84 93 H 93 H Respiratory 14 14 13 Rate Blood Pressure 108/57 108/57 94/55 O2 Sat by Pulse 100 99 100 Oximetry 11/28/18 11/28/18 11/28/18 06:00 06:15 06:31 Temperature Pulse Rate 93 H 94 H 93 H Respiratory 13 18 14 Rate Blood Pressure 100/58 100/58 117/59 O2 Sat by Pulse 100 100 100 Oximetry 11/28/18 11/28/18 11/28/18 06:45 07:01 07:15 Temperature Pulse Rate 94 H 94 H 86 Respiratory 13 14 15 Rate Blood Pressure 117/59 100/51 92/56 O2 Sat by Pulse 100 100 100 Oximetry 11/28/18 11/28/18 11/28/18 07:31 07:40 07:45 Temperature Pulse Rate 94 H 90 94 H Respiratory 14 13 16 Rate Blood Pressure 99/51 99/51 99/51 O2 Sat by Pulse 100 100 100 Oximetry 11/28/18 11/28/18 11/28/18 07:52 08:00 08:15 Temperature 98.1 F Pulse Rate 95 H 95 H Respiratory 18 19 Rate Blood Pressure 100/58 100/58 O2 Sat by Pulse 100 100 100 Oximetry 11/28/18 11/28/18 11/28/18 08:31 08:45 09:01 Temperature Pulse Rate 106 H 113 H 110 H Respiratory 14 15 21 Rate Blood Pressure 117/61 117/61 115/58 O2 Sat by Pulse 100 100 100 Oximetry 11/28/18 11/28/18 11/28/18 09:15 09:31 09:45 Temperature Pulse Rate 102 H 96 H 109 H Respiratory 15 12 12 Rate Blood Pressure 115/58 127/54 127/54 O2 Sat by Pulse 100 100 100 Oximetry 11/28/18 11/28/18 11/28/18 10:01 10:15 10:19 Temperature Pulse Rate 109 H 109 H 110 H Respiratory 22 17 Rate Blood Pressure 132/51 145/62 O2 Sat by Pulse 100 100 Oximetry 11/28/18 11/28/18 11/28/18 10:30 10:31 10:45 Temperature Pulse Rate 127 H 139 H 133 H Respiratory 18 16 Rate Blood Pressure 131/71 131/71 O2 Sat by Pulse 100 99 Oximetry 11/28/18 11/28/18 11/28/18 11:00 11:15 11:31 Temperature Pulse Rate 121 H 133 H 128 H Respiratory 18 17 21 Rate Blood Pressure 125/59 128/66 120/59 O2 Sat by Pulse 98 99 99 Oximetry 11/28/18 11/28/18 11:45 12:31 Temperature Pulse Rate 108 H 116 H Respiratory 20 Rate Blood Pressure 120/59 O2 Sat by Pulse 100 100 Oximetry Constitutional: alert, other (critically ill on vent; obese) Eyes: non-icteric Neck: supple Effort: normal Ascultation: Bilateral: other (coarse BS bilaterally) Cardiovascular: regular rate and rhythm (no mrg) Gastrointestinal: normoactive bowel sounds, soft, non-tender, non-distended Integumentary: normal Extremities: no cyanosis, pink and warm, edema (2+ bilateral LE edema) Neurologic: normal mental status, non-focal exam, pupils equal and round, CN II- XII normal Psychiatric: mood appropriate, affect normal CBC and BMP: 11/28/18 04:00 11/28/18 04:00 ABG, PT/INR, D-dimer: ABG POC ABG pH 7.453 (7.35-7.45) H 11/25/18 03:57 ABG pH 7.441 pH Units (7.350-7.450) 11/26/18 04:25 POC ABG pCO2 38.2 (35-45) 11/25/18 03:57 ABG pCO2 41.7 mm Hg 11/26/18 04:25 POC ABG pO2 96 (80-105) 11/25/18 03:57 ABG pO2 94.7 mm Hg (80.0-90.0) H 11/26/18 04:25 POC ABG HCO3 26.8 (22-26 mml/L) 11/25/18 03:57 POC ABG Total CO2 28 (23-27mmol/L) 11/25/18 03:57 POC ABG O2 Sat 98 11/25/18 03:57 ABG O2 Saturation 97.4 % (95.0-99.0) 11/26/18 04:25 PT/INR, D-dimer PT 16.3 Sec. (12.2-14.9) H 11/28/18 Unknown INR 1.35 (0.87-1.13) H 11/28/18 Unknown Abnormal lab findings: Abnormal Labs 11/08/18 11/08/18 11/08/18 03:09 03:09 05:50 WBC RBC 3.37 L MCV 106 H MCH 34 H RDW 17.1 H Lymph % (Auto) 4.6 L [place] % (Auto) 11.5 H Lymph # 0.2 L Seg Neutrophils % 83.0 H Seg Neuts % (Manual) Lymphocytes % (Manual) Monocytes % (Manual) Nucleated RBC % Seg Neutrophils # Man Lymphocytes # (Manual) Monocytes # (Manual) PT INR POC ABG pH POC ABG pCO2 POC ABG pO2 ABG pO2 ABG HCO3 ABG Base Excess Sodium 135 L Potassium Chloride Carbon Dioxide BUN 29 H Creatinine 1.4 H Glucose POC Glucose Lactic Acid Calcium 8.1 L Phosphorus AST Total Creatine Kinase CK-MB (CK-2) Troponin T 0.042 H 0.039 H Total Protein Albumin LDL Cholesterol Direct 137 H HDL Cholesterol 33 L Lipase Urine Creatinine Ur Creatinine 24 Hour Urine Total Protein 11/10/18 11/10/18 11/10/18 05:47 07:32 13:08 WBC RBC MCV MCH RDW Lymph % (Auto) [place] % (Auto) Lymph # Seg Neutrophils % Seg Neuts % (Manual) Lymphocytes % (Manual) Monocytes % (Manual) Nucleated RBC % Seg Neutrophils # Man Lymphocytes # (Manual) Monocytes # (Manual) PT INR POC ABG pH POC ABG pCO2 POC ABG pO2 ABG pO2 ABG HCO3 ABG Base Excess Sodium Potassium Chloride Carbon Dioxide 32 H BUN 25 H Creatinine Glucose 104 H POC Glucose 115 H 142 H Lactic Acid Calcium 7.9 L Phosphorus AST Total Creatine Kinase CK-MB (CK-2) Troponin T Total Protein Albumin LDL Cholesterol Direct HDL Cholesterol Lipase Urine Creatinine Ur Creatinine 24 Hour Urine Total Protein 11/10/18 11/10/18 11/11/18 16:55 21:21 07:51 WBC RBC MCV MCH RDW Lymph % (Auto) [place] % (Auto) Lymph # Seg Neutrophils % Seg Neuts % (Manual) Lymphocytes % (Manual) Monocytes % (Manual) Nucleated RBC % Seg Neutrophils # Man Lymphocytes # (Manual) Monocytes # (Manual) PT INR POC ABG pH POC ABG pCO2 POC ABG pO2 ABG pO2 ABG HCO3 ABG Base Excess Sodium Potassium Chloride Carbon Dioxide BUN Creatinine Glucose POC Glucose 125 H 126 H 118 H Lactic Acid Calcium Phosphorus AST Total Creatine Kinase CK-MB (CK-2) Troponin T Total Protein Albumin LDL Cholesterol Direct HDL Cholesterol Lipase Urine Creatinine Ur Creatinine 24 Hour Urine Total Protein 11/11/18 11/11/18 11/12/18 12:25 21:32 07:46 WBC RBC MCV MCH RDW Lymph % (Auto) [place] % (Auto) Lymph # Seg Neutrophils % Seg Neuts % (Manual) Lymphocytes % (Manual) Monocytes % (Manual) Nucleated RBC % Seg Neutrophils # Man Lymphocytes # (Manual) Monocytes # (Manual) PT INR POC ABG pH POC ABG pCO2 POC ABG pO2 ABG pO2 ABG HCO3 ABG Base Excess Sodium Potassium Chloride 97.7 L Carbon Dioxide BUN 28 H Creatinine Glucose POC Glucose 125 H 126 H Lactic Acid Calcium 8.0 L Phosphorus AST Total Creatine Kinase CK-MB (CK-2) Troponin T Total Protein Albumin LDL Cholesterol Direct HDL Cholesterol Lipase Urine Creatinine Ur Creatinine 24 Hour Urine Total Protein 11/12/18 11/12/18 11/13/18 08:57 11:35 05:38 WBC RBC MCV MCH RDW Lymph % (Auto) [place] % (Auto) Lymph # Seg Neutrophils % Seg Neuts % (Manual) Lymphocytes % (Manual) Monocytes % (Manual) Nucleated RBC % Seg Neutrophils # Man Lymphocytes # (Manual) Monocytes # (Manual) PT INR POC ABG pH POC ABG pCO2 POC ABG pO2 ABG pO2 ABG HCO3 ABG Base Excess Sodium Potassium Chloride 97.3 L Carbon Dioxide 31 H BUN 33 H Creatinine 1.5 H Glucose 111 H POC Glucose 120 H 137 H Lactic Acid Calcium 7.8 L Phosphorus AST Total Creatine Kinase CK-MB (CK-2) Troponin T Total Protein Albumin LDL Cholesterol Direct HDL Cholesterol Lipase Urine Creatinine Ur Creatinine 24 Hour Urine Total Protein 11/13/18 11/14/18 11/15/18 05:38 06:07 06:11 WBC RBC MCV MCH RDW Lymph % (Auto) [place] % (Auto) Lymph # Seg Neutrophils % Seg Neuts % (Manual) Lymphocytes % (Manual) Monocytes % (Manual) Nucleated RBC % Seg Neutrophils # Man Lymphocytes # (Manual) Monocytes # (Manual) PT INR POC ABG pH POC ABG pCO2 POC ABG pO2 ABG pO2 ABG HCO3 ABG Base Excess Sodium 135 L Potassium Chloride 96.8 L Carbon Dioxide BUN 36 H Creatinine 1.9 H Glucose 117 H POC Glucose 128 H Lactic Acid Calcium 8.2 L Phosphorus AST Total Creatine Kinase CK-MB (CK-2) Troponin T Total Protein Albumin LDL Cholesterol Direct HDL Cholesterol Lipase 11 L Urine Creatinine Ur Creatinine 24 Hour Urine Total Protein 11/15/18 11/15/18 11/15/18 08:50 18:41 18:41 WBC RBC 3.51 L MCV 103 H MCH 34 H RDW 17.4 H Lymph % (Auto) 3.3 L [place] % (Auto) 9.2 H Lymph # 0.2 L Seg Neutrophils % 87.2 H Seg Neuts % (Manual) Lymphocytes % (Manual) Monocytes % (Manual) Nucleated RBC % Seg Neutrophils # Man Lymphocytes # (Manual) Monocytes # (Manual) PT INR POC ABG pH 7.533 H POC ABG pCO2 33.9 L POC ABG pO2 237 H ABG pO2 ABG HCO3 ABG Base Excess Sodium 136 L Potassium Chloride 95.3 L Carbon Dioxide BUN 46 H Creatinine 2.3 H Glucose POC Glucose Lactic Acid Calcium 8.3 L Phosphorus AST Total Creatine Kinase CK-MB (CK-2) Troponin T Total Protein 4.6 L Albumin 1.8 L LDL Cholesterol Direct HDL Cholesterol Lipase Urine Creatinine Ur Creatinine 24 Hour Urine Total Protein 11/15/18 11/15/18 11/16/18 18:41 18:41 03:53 WBC RBC MCV MCH RDW Lymph % (Auto) [place] % (Auto) Lymph # Seg Neutrophils % Seg Neuts % (Manual) Lymphocytes % (Manual) Monocytes % (Manual) Nucleated RBC % Seg Neutrophils # Man Lymphocytes # (Manual) Monocytes # (Manual) PT 18.6 H INR 1.59 H POC ABG pH 7.507 H POC ABG pCO2 34.9 L POC ABG pO2 133 H ABG pO2 ABG HCO3 ABG Base Excess Sodium Potassium Chloride Carbon Dioxide BUN Creatinine Glucose POC Glucose Lactic Acid Calcium Phosphorus AST Total Creatine Kinase 293 H CK-MB (CK-2) 5.6 H Troponin T 2.830 H* Total Protein Albumin LDL Cholesterol Direct HDL Cholesterol Lipase Urine Creatinine Ur Creatinine 24 Hour Urine Total Protein 11/16/18 11/16/18 11/16/18 05:35 05:35 09:26 WBC RBC 3.44 L MCV 103 H MCH 34 H RDW 17.3 H Lymph % (Auto) 2.5 L [place] % (Auto) 9.3 H Lymph # 0.2 L Seg Neutrophils % 87.9 H Seg Neuts % (Manual) Lymphocytes % (Manual) Monocytes % (Manual) Nucleated RBC % Seg Neutrophils # Man Lymphocytes # (Manual) Monocytes # (Manual) PT INR POC ABG pH POC ABG pCO2 POC ABG pO2 ABG pO2 ABG HCO3 ABG Base Excess Sodium 135 L Potassium Chloride 95.9 L Carbon Dioxide BUN 47 H Creatinine 2.2 H Glucose POC Glucose Lactic Acid Calcium 8.1 L Phosphorus 4.60 H AST Total Creatine Kinase CK-MB (CK-2) Troponin T Total Protein Albumin LDL Cholesterol Direct HDL Cholesterol Lipase Urine Creatinine 103.3 H Ur Creatinine 24 Hour Urine Total Protein 11/16/18 11/17/18 11/18/18 09:26 10:42 04:45 WBC RBC 3.41 L 3.50 L MCV 104 H 104 H MCH 34 H 34 H RDW 17.4 H 17.7 H Lymph % (Auto) 4.1 L 4.9 L [place] % (Auto) 9.8 H 7.6 H Lymph # 0.2 L 0.3 L Seg Neutrophils % 85.8 H 87.1 H Seg Neuts % (Manual) Lymphocytes % (Manual) Monocytes % (Manual) Nucleated RBC % Seg Neutrophils # Man Lymphocytes # (Manual) Monocytes # (Manual) PT INR POC ABG pH POC ABG pCO2 POC ABG pO2 ABG pO2 ABG HCO3 ABG Base Excess Sodium Potassium Chloride Carbon Dioxide BUN Creatinine Glucose POC Glucose Lactic Acid Calcium Phosphorus AST Total Creatine Kinase CK-MB (CK-2) Troponin T Total Protein Albumin LDL Cholesterol Direct HDL Cholesterol Lipase Urine Creatinine 102.6 H Ur Creatinine 24 Hour Urine Total Protein 28 H 11/18/18 11/19/18 11/19/18 04:45 06:48 06:48 WBC RBC 3.63 L MCV 105 H MCH 35 H RDW 17.2 H Lymph % (Auto) 4.0 L [place] % (Auto) Lymph # 0.3 L Seg Neutrophils % 89.3 H Seg Neuts % (Manual) Lymphocytes % (Manual) Monocytes % (Manual) Nucleated RBC % Seg Neutrophils # Man Lymphocytes # (Manual) Monocytes # (Manual) PT INR POC ABG pH POC ABG pCO2 POC ABG pO2 ABG pO2 ABG HCO3 ABG Base Excess Sodium 135 L Potassium 3.5 L Chloride 95.9 L 95.4 L Carbon Dioxide BUN 58 H 64 H Creatinine 2.7 H 3.3 H Glucose 137 H 102 H POC Glucose Lactic Acid Calcium 7.7 L 8.0 L Phosphorus 5.00 H 6.10 H D AST Total Creatine Kinase CK-MB (CK-2) Troponin T Total Protein Albumin LDL Cholesterol Direct HDL Cholesterol Lipase Urine Creatinine Ur Creatinine 24 Hour Urine Total Protein 11/19/18 11/20/18 11/20/18 Unknown 01:15 04:30 WBC RBC 3.37 L MCV 105 H MCH 34 H RDW 17.5 H Lymph % (Auto) [place] % (Auto) Lymph # Seg Neutrophils % Seg Neuts % (Manual) 93.0 H Lymphocytes % (Manual) 3.0 L Monocytes % (Manual) Nucleated RBC % 1.0 H Seg Neutrophils # Man 8.1 H Lymphocytes # (Manual) 0.3 L Monocytes # (Manual) PT 23.2 H INR 2.11 H POC ABG pH POC ABG pCO2 POC ABG pO2 ABG pO2 ABG HCO3 ABG Base Excess Sodium Potassium Chloride Carbon Dioxide BUN Creatinine Glucose POC Glucose Lactic Acid 4.30 H* Calcium Phosphorus AST Total Creatine Kinase CK-MB (CK-2) Troponin T Total Protein Albumin LDL Cholesterol Direct HDL Cholesterol Lipase Urine Creatinine Ur Creatinine 24 Hour Urine Total Protein 11/20/18 11/20/18 11/20/18 04:30 19:25 21:33 WBC RBC MCV MCH RDW Lymph % (Auto) [place] % (Auto) Lymph # Seg Neutrophils % Seg Neuts % (Manual) Lymphocytes % (Manual) Monocytes % (Manual) Nucleated RBC % Seg Neutrophils # Man Lymphocytes # (Manual) Monocytes # (Manual) PT INR POC ABG pH 7.228 L POC ABG pCO2 30.5 L POC ABG pO2 160 H ABG pO2 ABG HCO3 ABG Base Excess Sodium 136 L Potassium Chloride 95.5 L Carbon Dioxide BUN 72 H Creatinine 3.6 H Glucose POC Glucose 106 H Lactic Acid Calcium 8.1 L Phosphorus 6.60 H AST Total Creatine Kinase CK-MB (CK-2) Troponin T Total Protein Albumin LDL Cholesterol Direct HDL Cholesterol Lipase Urine Creatinine Ur Creatinine 24 Hour Urine Total Protein 11/20/18 11/20/18 11/20/18 21:50 22:11 22:20 WBC RBC MCV MCH RDW Lymph % (Auto) [place] % (Auto) Lymph # Seg Neutrophils % Seg Neuts % (Manual) Lymphocytes % (Manual) Monocytes % (Manual) Nucleated RBC % Seg Neutrophils # Man Lymphocytes # (Manual) Monocytes # (Manual) PT INR POC ABG pH POC ABG pCO2 POC ABG pO2 ABG pO2 ABG HCO3 ABG Base Excess Sodium Potassium Chloride Carbon Dioxide BUN Creatinine Glucose POC Glucose 64 L 110 H Lactic Acid 8.40 H* Calcium Phosphorus AST Total Creatine Kinase CK-MB (CK-2) Troponin T Total Protein Albumin LDL Cholesterol Direct HDL Cholesterol Lipase Urine Creatinine Ur Creatinine 24 Hour Urine Total Protein 11/20/18 11/20/18 11/21/18 22:20 Unknown 04:52 WBC RBC MCV MCH RDW Lymph % (Auto) [place] % (Auto) Lymph # Seg Neutrophils % Seg Neuts % (Manual) Lymphocytes % (Manual) Monocytes % (Manual) Nucleated RBC % Seg Neutrophils # Man Lymphocytes # (Manual) Monocytes # (Manual) PT INR POC ABG pH 7.643 H POC ABG pCO2 POC ABG pO2 161 H ABG pO2 ABG HCO3 ABG Base Excess Sodium 134 L Potassium 5.5 H D Chloride 93.4 L Carbon Dioxide 17 L D BUN 72 H Creatinine 4.2 H Glucose POC Glucose Lactic Acid Calcium 8.0 L Phosphorus AST 57 H Total Creatine Kinase CK-MB (CK-2) Troponin T 3.550 H* Total Protein 4.2 L Albumin 2.3 L LDL Cholesterol Direct HDL Cholesterol Lipase Urine Creatinine Ur Creatinine 24 Hour Urine Total Protein 11/21/18 11/21/18 11/21/18 05:55 05:55 05:55 WBC 12.2 H RBC MCV 103 H MCH 34 H RDW 16.9 H Lymph % (Auto) [place] % (Auto) Lymph # Seg Neutrophils % Seg Neuts % (Manual) 96.0 H Lymphocytes % (Manual) 2.0 L Monocytes % (Manual) Nucleated RBC % Seg Neutrophils # Man 11.7 H Lymphocytes # (Manual) 0.2 L Monocytes # (Manual) PT INR POC ABG pH POC ABG pCO2 POC ABG pO2 ABG pO2 ABG HCO3 ABG Base Excess Sodium 136 L Potassium Chloride 94.2 L Carbon Dioxide BUN 76 H Creatinine 4.3 H Glucose 134 H POC Glucose Lactic Acid 2.70 H* Calcium 7.9 L Phosphorus 5.90 H AST Total Creatine Kinase CK-MB (CK-2) Troponin T Total Protein Albumin LDL Cholesterol Direct HDL Cholesterol Lipase Urine Creatinine Ur Creatinine 24 Hour Urine Total Protein 11/21/18 11/21/18 11/21/18 06:00 06:14 07:53 WBC RBC MCV MCH RDW Lymph % (Auto) [place] % (Auto) Lymph # Seg Neutrophils % Seg Neuts % (Manual) Lymphocytes % (Manual) Monocytes % (Manual) Nucleated RBC % Seg Neutrophils # Man Lymphocytes # (Manual) Monocytes # (Manual) PT INR POC ABG pH 7.516 H POC ABG pCO2 30.4 L POC ABG pO2 118 H ABG pO2 ABG HCO3 ABG Base Excess Sodium Potassium Chloride Carbon Dioxide BUN Creatinine Glucose POC Glucose 154 H Lactic Acid 2.50 H* Calcium Phosphorus AST Total Creatine Kinase CK-MB (CK-2) Troponin T Total Protein Albumin LDL Cholesterol Direct HDL Cholesterol Lipase Urine Creatinine Ur Creatinine 24 Hour Urine Total Protein 11/21/18 11/21/18 11/22/18 13:08 23:58 05:07 WBC RBC MCV MCH RDW Lymph % (Auto) [place] % (Auto) Lymph # Seg Neutrophils % Seg Neuts % (Manual) Lymphocytes % (Manual) Monocytes % (Manual) Nucleated RBC % Seg Neutrophils # Man Lymphocytes # (Manual) Monocytes # (Manual) PT INR POC ABG pH 7.452 H POC ABG pCO2 POC ABG pO2 79 L ABG pO2 ABG HCO3 ABG Base Excess Sodium Potassium Chloride Carbon Dioxide BUN Creatinine Glucose POC Glucose 115 H 121 H Lactic Acid Calcium Phosphorus AST Total Creatine Kinase CK-MB (CK-2) Troponin T Total Protein Albumin LDL Cholesterol Direct HDL Cholesterol Lipase Urine Creatinine Ur Creatinine 24 Hour Urine Total Protein 11/22/18 11/22/18 11/22/18 05:35 05:35 05:44 WBC RBC 3.00 L MCV 102 H MCH 34 H RDW 17.2 H Lymph % (Auto) [place] % (Auto) Lymph # Seg Neutrophils % Seg Neuts % (Manual) 89.0 H Lymphocytes % (Manual) 2.0 L Monocytes % (Manual) 8.0 H Nucleated RBC % Seg Neutrophils # Man 9.7 H Lymphocytes # (Manual) 0.2 L Monocytes # (Manual) 0.9 H PT INR POC ABG pH POC ABG pCO2 POC ABG pO2 ABG pO2 ABG HCO3 ABG Base Excess Sodium 136 L Potassium 3.5 L Chloride 97.0 L Carbon Dioxide BUN 78 H Creatinine 4.3 H Glucose 159 H POC Glucose 119 H Lactic Acid Calcium 7.3 L Phosphorus AST Total Creatine Kinase CK-MB (CK-2) Troponin T Total Protein Albumin LDL Cholesterol Direct HDL Cholesterol Lipase Urine Creatinine Ur Creatinine 24 Hour Urine Total Protein 11/23/18 11/23/18 11/24/18 03:29 04:22 04:19 WBC RBC MCV MCH RDW Lymph % (Auto) [place] % (Auto) Lymph # Seg Neutrophils % Seg Neuts % (Manual) Lymphocytes % (Manual) Monocytes % (Manual) Nucleated RBC % Seg Neutrophils # Man Lymphocytes # (Manual) Monocytes # (Manual) PT INR POC ABG pH 7.530 H 7.492 H POC ABG pCO2 32.3 L POC ABG pO2 ABG pO2 ABG HCO3 ABG Base Excess Sodium Potassium 3.2 L Chloride 95.4 L Carbon Dioxide BUN 83 H Creatinine 5.0 H Glucose POC Glucose Lactic Acid Calcium 7.9 L Phosphorus AST Total Creatine Kinase CK-MB (CK-2) Troponin T Total Protein Albumin LDL Cholesterol Direct HDL Cholesterol Lipase Urine Creatinine Ur Creatinine 24 Hour Urine Total Protein 11/24/18 11/25/18 11/25/18 Unknown 03:57 05:18 WBC RBC MCV MCH RDW Lymph % (Auto) [place] % (Auto) Lymph # Seg Neutrophils % Seg Neuts % (Manual) Lymphocytes % (Manual) Monocytes % (Manual) Nucleated RBC % Seg Neutrophils # Man Lymphocytes # (Manual) Monocytes # (Manual) PT INR POC ABG pH 7.453 H POC ABG pCO2 POC ABG pO2 ABG pO2 ABG HCO3 ABG Base Excess Sodium Potassium 3.1 L Chloride 95.3 L Carbon Dioxide BUN 86 H Creatinine 5.2 H Glucose POC Glucose 140 H Lactic Acid Calcium 7.9 L Phosphorus AST Total Creatine Kinase CK-MB (CK-2) Troponin T Total Protein Albumin LDL Cholesterol Direct HDL Cholesterol Lipase Urine Creatinine Ur Creatinine 24 Hour Urine Total Protein 11/25/18 11/25/18 11/25/18 05:40 12:26 15:16 WBC RBC MCV MCH RDW Lymph % (Auto) [place] % (Auto) Lymph # Seg Neutrophils % Seg Neuts % (Manual) Lymphocytes % (Manual) Monocytes % (Manual) Nucleated RBC % Seg Neutrophils # Man Lymphocytes # (Manual) Monocytes # (Manual) PT INR POC ABG pH POC ABG pCO2 POC ABG pO2 ABG pO2 ABG HCO3 ABG Base Excess Sodium 135 L Potassium Chloride 94.5 L Carbon Dioxide BUN 86 H Creatinine 5.4 H Glucose 118 H POC Glucose 120 H Lactic Acid Calcium 7.9 L Phosphorus AST Total Creatine Kinase CK-MB (CK-2) Troponin T Total Protein Albumin LDL Cholesterol Direct HDL Cholesterol Lipase Urine Creatinine 28.7 H Ur Creatinine 24 Hour 0.4 L Urine Total Protein 11/25/18 11/26/18 11/26/18 16:59 04:25 05:30 WBC RBC 3.10 L MCV 101 H MCH 34 H RDW 16.6 H Lymph % (Auto) [place] % (Auto) Lymph # Seg Neutrophils % Seg Neuts % (Manual) Lymphocytes % (Manual) Monocytes % (Manual) Nucleated RBC % Seg Neutrophils # Man Lymphocytes # (Manual) Monocytes # (Manual) PT INR POC ABG pH POC ABG pCO2 POC ABG pO2 ABG pO2 94.7 H ABG HCO3 27.8 H ABG Base Excess 3.3 H Sodium Potassium Chloride Carbon Dioxide BUN Creatinine Glucose POC Glucose 153 H Lactic Acid Calcium Phosphorus AST Total Creatine Kinase CK-MB (CK-2) Troponin T Total Protein Albumin LDL Cholesterol Direct HDL Cholesterol Lipase Urine Creatinine Ur Creatinine 24 Hour Urine Total Protein 11/26/18 11/26/18 11/26/18 05:39 05:40 11:32 WBC RBC MCV MCH RDW Lymph % (Auto) [place] % (Auto) Lymph # Seg Neutrophils % Seg Neuts % (Manual) Lymphocytes % (Manual) Monocytes % (Manual) Nucleated RBC % Seg Neutrophils # Man Lymphocytes # (Manual) Monocytes # (Manual) PT INR POC ABG pH POC ABG pCO2 POC ABG pO2 ABG pO2 ABG HCO3 ABG Base Excess Sodium Potassium 3.0 L Chloride 94.2 L Carbon Dioxide BUN 87 H Creatinine 5.2 H Glucose 147 H POC Glucose 130 H 152 H Lactic Acid Calcium 8.1 L Phosphorus AST Total Creatine Kinase CK-MB (CK-2) Troponin T Total Protein Albumin LDL Cholesterol Direct HDL Cholesterol Lipase Urine Creatinine Ur Creatinine 24 Hour Urine Total Protein 11/26/18 11/26/18 11/27/18 18:10 23:25 04:00 WBC RBC 3.12 L MCV 103 H MCH 34 H RDW 17.6 H Lymph % (Auto) [place] % (Auto) Lymph # Seg Neutrophils % Seg Neuts % (Manual) Lymphocytes % (Manual) Monocytes % (Manual) Nucleated RBC % Seg Neutrophils # Man Lymphocytes # (Manual) Monocytes # (Manual) PT INR POC ABG pH POC ABG pCO2 POC ABG pO2 ABG pO2 ABG HCO3 ABG Base Excess Sodium Potassium Chloride Carbon Dioxide BUN Creatinine Glucose POC Glucose 164 H 126 H Lactic Acid Calcium Phosphorus AST Total Creatine Kinase CK-MB (CK-2) Troponin T Total Protein Albumin LDL Cholesterol Direct HDL Cholesterol Lipase Urine Creatinine Ur Creatinine 24 Hour Urine Total Protein 11/27/18 11/27/18 11/27/18 04:00 05:48 11:55 WBC RBC MCV MCH RDW Lymph % (Auto) [place] % (Auto) Lymph # Seg Neutrophils % Seg Neuts % (Manual) Lymphocytes % (Manual) Monocytes % (Manual) Nucleated RBC % Seg Neutrophils # Man Lymphocytes # (Manual) Monocytes # (Manual) PT INR POC ABG pH POC ABG pCO2 POC ABG pO2 ABG pO2 ABG HCO3 ABG Base Excess Sodium Potassium 3.5 L Chloride 97.0 L Carbon Dioxide 33 H BUN 73 H Creatinine 4.6 H Glucose 119 H POC Glucose 124 H 138 H Lactic Acid Calcium 8.0 L Phosphorus AST Total Creatine Kinase CK-MB (CK-2) Troponin T Total Protein Albumin LDL Cholesterol Direct HDL Cholesterol Lipase Urine Creatinine Ur Creatinine 24 Hour Urine Total Protein 11/27/18 11/28/18 11/28/18 17:07 00:09 04:00 WBC RBC 3.24 L MCV 103 H MCH 34 H RDW 17.0 H Lymph % (Auto) [place] % (Auto) Lymph # Seg Neutrophils % Seg Neuts % (Manual) Lymphocytes % (Manual) Monocytes % (Manual) Nucleated RBC % Seg Neutrophils # Man Lymphocytes # (Manual) Monocytes # (Manual) PT INR POC ABG pH POC ABG pCO2 POC ABG pO2 ABG pO2 ABG HCO3 ABG Base Excess Sodium Potassium Chloride Carbon Dioxide BUN Creatinine Glucose POC Glucose 125 H 125 H Lactic Acid Calcium Phosphorus AST Total Creatine Kinase CK-MB (CK-2) Troponin T Total Protein Albumin LDL Cholesterol Direct HDL Cholesterol Lipase Urine Creatinine Ur Creatinine 24 Hour Urine Total Protein 11/28/18 11/28/18 11/28/18 04:00 05:02 Unknown WBC RBC MCV MCH RDW Lymph % (Auto) [place] % (Auto) Lymph # Seg Neutrophils % Seg Neuts % (Manual) Lymphocytes % (Manual) Monocytes % (Manual) Nucleated RBC % Seg Neutrophils # Man Lymphocytes # (Manual) Monocytes # (Manual) PT 16.3 H INR 1.35 H POC ABG pH POC ABG pCO2 POC ABG pO2 ABG pO2 ABG HCO3 ABG Base Excess Sodium Potassium Chloride 97.7 L Carbon Dioxide 31 H BUN 61 H Creatinine 3.8 H Glucose 125 H POC Glucose 126 H Lactic Acid Calcium 8.0 L Phosphorus AST Total Creatine Kinase CK-MB (CK-2) Troponin T Total Protein Albumin LDL Cholesterol Direct HDL Cholesterol Lipase Urine Creatinine Ur Creatinine 24 Hour Urine Total Protein Chest x-ray: report reviewed, image reviewed (cardiomegaly and bilateral infiltrates)
--- NOTE | 2018-11-28 13:16 | Progress Note ---
Assessment and Plan Acute renal failure likely ischemic due to cardiac arrest Hypoxic respiratory failure on mechanical ventilation Acute on Chronic systolic heart failure with EF of 10-15 % Paroxysmal atrial fibrillation Hypokalemia, resolved - Renal function reviewed. Serum creatinine 3.8 today, yesterday's level was 4.6 - Received second HD treatment yesterday - No acute indication for HD today - No proteinruia, renal US negative for obstruction - Renally dose medications - Strict I&O monitoring - Obtain daily weights - Monitor renal function for renal recovery Subjective Date of service: 11/28/18 Principal diagnosis: blood in stool Interval history: Patient seen lying in bed. Intubated. No family at bedside. Objective - Vital Signs Vital signs: Vital Signs - 12hr 11/28/18 11/28/18 11/28/18 01:15 01:30 01:45 Temperature Pulse Rate 84 93 H 84 Respiratory 14 14 14 Rate Blood Pressure 96/51 99/54 99/54 O2 Sat by Pulse 100 100 100 Oximetry 11/28/18 11/28/18 11/28/18 02:00 02:15 02:30 Temperature Pulse Rate 93 H 90 78 Respiratory 14 14 14 Rate Blood Pressure 107/54 107/54 109/53 O2 Sat by Pulse 99 100 100 Oximetry 11/28/18 11/28/18 11/28/18 02:45 03:00 03:15 Temperature 97.4 F L Pulse Rate 75 83 74 Respiratory 14 14 14 Rate Blood Pressure 115/56 108/59 122/55 O2 Sat by Pulse 100 100 100 Oximetry 11/28/18 11/28/18 11/28/18 03:30 03:45 04:00 Temperature Pulse Rate 79 76 85 Respiratory 14 14 14 Rate Blood Pressure 119/59 119/59 118/57 O2 Sat by Pulse 100 100 100 Oximetry 11/28/18 11/28/18 11/28/18 04:15 04:30 04:39 Temperature Pulse Rate 79 84 70 Respiratory 14 14 Rate Blood Pressure 118/56 101/56 117/60 O2 Sat by Pulse 100 100 100 Oximetry 11/28/18 11/28/18 11/28/18 04:45 05:00 05:15 Temperature Pulse Rate 78 94 H 84 Respiratory 14 14 14 Rate Blood Pressure 101/56 107/57 108/57 O2 Sat by Pulse 100 100 100 Oximetry 11/28/18 11/28/18 11/28/18 05:31 05:45 06:00 Temperature Pulse Rate 93 H 93 H 93 H Respiratory 14 13 13 Rate Blood Pressure 108/57 94/55 100/58 O2 Sat by Pulse 99 100 100 Oximetry 11/28/18 11/28/18 11/28/18 06:15 06:31 06:45 Temperature Pulse Rate 94 H 93 H 94 H Respiratory 18 14 13 Rate Blood Pressure 100/58 117/59 117/59 O2 Sat by Pulse 100 100 100 Oximetry 11/28/18 11/28/18 11/28/18 07:01 07:15 07:31 Temperature Pulse Rate 94 H 86 94 H Respiratory 14 15 14 Rate Blood Pressure 100/51 92/56 99/51 O2 Sat by Pulse 100 100 100 Oximetry 11/28/18 11/28/18 11/28/18 07:40 07:45 07:52 Temperature Pulse Rate 90 94 H Respiratory 13 16 Rate Blood Pressure 99/51 99/51 O2 Sat by Pulse 100 100 100 Oximetry 11/28/18 11/28/18 11/28/18 08:00 08:15 08:31 Temperature 98.1 F Pulse Rate 95 H 95 H 106 H Respiratory 18 19 14 Rate Blood Pressure 100/58 100/58 117/61 O2 Sat by Pulse 100 100 100 Oximetry 11/28/18 11/28/18 11/28/18 08:45 09:01 09:15 Temperature Pulse Rate 113 H 110 H 102 H Respiratory 15 21 15 Rate Blood Pressure 117/61 115/58 115/58 O2 Sat by Pulse 100 100 100 Oximetry 11/28/18 11/28/18 11/28/18 09:31 09:45 10:01 Temperature Pulse Rate 96 H 109 H 109 H Respiratory 12 12 22 Rate Blood Pressure 127/54 127/54 132/51 O2 Sat by Pulse 100 100 100 Oximetry 11/28/18 11/28/18 11/28/18 10:15 10:19 10:30 Temperature Pulse Rate 109 H 110 H 127 H Respiratory 17 18 Rate Blood Pressure 145/62 131/71 O2 Sat by Pulse 100 100 Oximetry 11/28/18 11/28/18 11/28/18 10:31 10:45 11:00 Temperature Pulse Rate 139 H 133 H 121 H Respiratory 16 18 Rate Blood Pressure 131/71 125/59 O2 Sat by Pulse 99 98 Oximetry 11/28/18 11/28/18 11/28/18 11:15 11:31 11:45 Temperature Pulse Rate 133 H 128 H 108 H Respiratory 17 21 20 Rate Blood Pressure 128/66 120/59 120/59 O2 Sat by Pulse 99 99 100 Oximetry 11/28/18 11/28/18 12:00 12:31 Temperature 98.9 F Pulse Rate 116 H Respiratory Rate Blood Pressure O2 Sat by Pulse 100 Oximetry - General Appearance General appearance: intubated EENT: ATNC, PERRL Neck: no JVD, supple Respiratory: Present: Decreased Breath Sounds, Other (Intubated) Cardiology: S1S2 Gastrointestinal: normoactive bowel sounds Integumentary: warm and dry Neurologic: other (Opens eyes on verbal or tactile stimuli) Musculoskeletal: other (edema has improved to BLE) - Lab 11/28/18 04:00 11/28/18 04:00 Most recent lab results ABG pH 7.441 pH Units (7.350-7.450) 11/26/18 04:25 ABG pCO2 41.7 mm Hg 11/26/18 04:25 ABG pO2 94.7 mm Hg (80.0-90.0) H 11/26/18 04:25 ABG HCO3 27.8 mmol/L (20.0-26.0) H 11/26/18 04:25 ABG O2 Saturation 97.4 % (95.0-99.0) 11/26/18 04:25 Calcium 8.0 mg/dL (8.4-10.2) L 11/28/18 04:00 Phosphorus 5.90 mg/dL (2.5-4.5) H 11/21/18 05:55 Magnesium 2.00 mg/dL (1.7-2.3) 11/26/18 05:40 28.7 mg/dL (0.1-20.0) H 11/25/18 15:16 28 mg/dL (5-11.8) H 11/16/18 09:26 Medications & Allergies - Medications Allergies/Adverse Reactions: Allergies lisinopril Allergy (Verified 02/24/18 09:15) Anaphylaxis Penicillins Allergy (Verified 02/24/18 09:15) Seizure Sulfa (Sulfonamide Antibiotics) Adverse Reaction (Verified 02/24/18 09:15) Hives Home Medications: Home Medications Medication Instructions Recorded Confirmed Last Taken Type Aspirin [Adult Aspirin] 81 mg PO DAILY 02/24/18 11/08/18 05/09/18 History Spironolactone [Aldactone] 25 mg PO QDAY 02/24/18 11/08/18 05/09/18 History buPROPion SR [Wellbutrin SR] 150 mg PO BID 02/24/18 11/08/18 05/09/18 History Albuterol Sulfate [Ventolin HFA] 1 puff IH Q6H PRN 30 Days 03/03/18 11/08/18 05/09/18 Rx [email or web address] Cyclobenzaprine [Flexeril 10 MG 10 mg PO TID PRN 05/10/18 11/08/18 05/09/18 History TAB] Diphenhydramine HCl [Allergy 25 mg PO DAILY 05/10/18 11/08/18 05/09/18 History Relief] ISOSORBIDE MONOnitrate [Imdur ER] 60 mg PO QDAY 05/10/18 11/08/18 05/09/18 History Sertraline HCl [Zoloft] 50 mg PO DAILY 05/10/18 11/08/18 05/09/18 History hydrALAZINE [Apresoline TAB] 25 mg PO Q8HR 05/10/18 11/08/18 05/09/18 History Apixaban [Eliquis] 5 mg PO Q12HR #60 tablet 07/02/18 11/08/18 Unknown Rx Pantoprazole [Protonix TAB] 40 mg PO QDAY #30 tablet 07/02/18 11/08/18 Unknown Rx Polyethylene Glycol 3350 [Miralax 17 gm PO BID PRN #30 powd.pack 07/02/18 11/08/18 Unknown Rx 3350] Carvedilol [Coreg] 3.125 mg PO BID #60 tablet 09/10/18 11/08/18 Unknown Rx Magnesium Oxide [Mag-Ox] 400 mg PO QDAY #7 tablet 10/04/18 11/08/18 Unknown Rx Potassium Chloride [K-Dur] 20 meq PO QDAY #7 tablet 10/04/18 11/08/18 Unknown Rx Torsemide [Demadex] 40 mg PO BID #60 tablet 10/04/18 11/08/18 Unknown Rx metOLazone [Zaroxolyn] 5 mg PO QDAY #30 tablet 10/04/18 11/08/18 Unknown Rx Active Medications: Generic Name Dose Route Start Last Admin Trade Name Margaux PRN Reason Stop Dose Admin Albuterol 2.5 mg 11/09/18 08:00 11/20/18 22:07 Proventil IH 2.5 mg Q4HRT PRN Administration Shortness Of Breath Amiodarone HCl 200 mg 11/10/18 22:00 11/28/18 10:18 Cordarone PO 200 mg BID RADHA Administration Lipase/Protease/Amylase 1 each 11/26/18 16:41 Pancreaze 10,500 Unit FEEDTUBE PRN PRN For Clogged Feeding Tube Aspirin 81 mg 11/09/18 10:00 11/28/18 10:18 Halfprin Ec PO 81 mg DAILY RADHA Administration Atorvastatin Calcium 40 mg 11/11/18 22:00 11/27/18 21:02 Lipitor PO 40 mg QHS RADHA Administration Bupropion HCl 150 mg 11/21/18 10:00 11/28/18 10:21 Wellbutrin PO 150 mg BID RADHA Administration Dextrose 50 ml 11/20/18 21:45 D50w (25gm) Syringe IV PRN PRN Hypoglycemia Hydromorphone HCl 0.5 mg 11/19/18 11:21 11/28/18 10:19 Dilaudid IV 0.5 mg Q3H PRN Administration Pain , Severe (7-10) Hydrophilic Ointment 1 applic 11/20/18 20:27 11/27/18 09:04 Vaseline Lip Therapy TP 1 applic Q2HR PRN Administration Dry Lips Sodium Chloride 100 mls @ 999 mls/hr 11/28/18 12:00 Nacl 0.9% IV ANGEL PRN Hypotension Lansoprazole 30 mg 11/24/18 10:00 11/28/18 10:18 Prevacid Solutab FEEDTUBE 30 mg QDAY RADHA Administration Metoprolol Tartrate 2.5 mg 11/21/18 09:18 11/28/18 10:31 Lopressor IV 2.5 mg Q6HR PRN Administration Tachyarrhythmias Metoprolol Tartrate 12.5 mg 11/26/18 22:00 11/28/18 10:19 Lopressor PO 12.5 mg BID RADHA Administration Midazolam HCl 2 mg 11/20/18 20:27 11/21/18 04:08 Versed IV 2 mg Q10MIN PRN Administration Sedation Multi-Ingred Cream/Lotion/Oil/Oint 1 applic 11/20/18 20:27 Artificial Tears Ophth Oint OU Q4HR PRN Dry Eye(s) Ondansetron HCl 4 mg 11/11/18 13:44 11/27/18 14:39 Zofran IV 4 mg Q8H PRN Administration Nausea And Vomiting Polyethylene Glycol 17 gm 11/09/18 10:00 Miralax 3350 PO BID PRN Constipation Sertraline HCl 50 mg 11/09/18 10:00 11/28/18 10:19 Zoloft PO 50 mg DAILY RADHA Administration Simethicone 80 mg 11/12/18 11:49 11/27/18 14:39 Mylicon PO 80 mg Q6H PRN Administration Gas pain Simple Syrup 15 ml 11/26/18 16:41 Simple Syrup FEEDTUBE PRN PRN Hypoglycemia Simple Syrup 30 ml 11/26/18 16:41 Simple Syrup FEEDTUBE PRN PRN Hypoglycemia Sodium Bicarbonate 325 mg 11/26/18 16:41 Sodium Bicarbonate FEEDTUBE PRN PRN For Clogged Feeding Tube Sucralfate 1 gm 11/28/18 12:00 Carafate PO Q6HR RADHA
--- NOTE | 2018-11-28 14:01 | Anesthesia Consultation ---
Anesthesia Consult and Med Hx Date of service: 11/28/18 - Airway Anesthetic Teeth Evaluation: Poor ROM Head & Neck: Adequate Mental/Hyoid Distance: Adequate Mallampati Class: Class III Intubation Access Assessment: Possibly Difficult - Pre-Operative Health Status ASA Pre-Surgery Classification: ASA4 Proposed Anesthetic Plan: MAC - Pulmonary Hx Smoking: Yes Hx Respiratory Symptoms: Yes (intubated) COPD: Yes (3 L nasal cannula) Hx Pneumonia: Yes - Cardiovascular System Hx Hypertension: Yes Hx Coronary Artery Disease: Yes (Ischemic cardiomyopathy EF 10-15%) Hx Heart Attack/AMI: Yes (2008) Hx Angina: Yes Hx Cardia Arrhythmia: Yes (Paroxysmal A fib) Hx Pacemaker: Yes Hx Internal Defibrillator: Yes (non functioning) - Central Nervous System CVA: Yes (2016) - Endocrine Hx End Stage Renal Disease: No - Other Systems Hx Obesity: Yes (BMI 42.7) - Additional Comments Anesthesia Medical History Comments: EF 10-15%, s/p cardiac arrest, CPR, non- functioning internal defibrillator, intubated. Family is insisting on trach/PEG placement. High risk anesthesia
--- NOTE | 2018-11-28 14:26 | Anesthesia Day of Surgery ---
Anesthesia Day of Surgery - Day of Surgery Patient Examined: Yes Patient H&P Reviewed: Yes Patient is NPO: Yes Beta Blockers: Yes
[2018-11-28] MEDS ORDERED: WATER FOR IRRIG STERILE IR ONE (15:03)
[2018-11-28] MEDS ORDERED: NACL 0.9% 1000 ML 1,000 ML ONE (15:04)
[2018-11-28] MEDS ORDERED: SUBLIMAZE ONE (15:45)
[2018-11-28] MEDS ORDERED: VERSED ONE (15:45)
[2018-11-28] MEDS ORDERED: ZEMURON IV ONE (15:45)
[2018-11-28] MEDS ORDERED: XYLOCAINE MPF 2% ONE (15:46)
[2018-11-28] MEDS ORDERED: PHENYLEPHRINE/NS Syringe 1,000 MCG/10 ML IV ONE (16:00)
--- NOTE | 2018-11-28 16:38 | Procedure Note ---
Date of procedure: 11/28/18 Pre-op diagnosis: vdrf Post-op diagnosis: same Procedure: Tracheostomy Findings: Consent verified on the chart. Time out was performed. Sterile prep and drape was done. Anesthesia was managed by anesthesia provider. Lidocaine was used to anesthetize an area about two finger breadths above the sternal notch. A T shaped incision was made in the neck approximately 2 fingerbreadths above the sternal notch. Blunt dissection was carried down to trachea. Under bronchoscopic guidance, the introducer needle was inserted and seen in the trachea. It was approximately at the second tracheal ring. The wire was passed into the trachea towards the sydnee. The tract was dilated and tracheostomy tube was easily inserted. Balloon was inflated. Position was rechecked via bronchoscopy through the tracheostomy tube. We were at least 3 cm above the sydnee. We had satisfactory inspiratory and expiratory volumes. There were no apparent complications at the end of the case. There was no evidence of active bleeding. A drain sponge was applied around the tracheostomy and the tracheostomy sutured to the skin using 2-0 prolene interrupted sutures. The neck strap was applied. At the end of the case, all sharps were disposed of appropriately. The patient tolerated the procedure well. Implants: 8F gt Anesthesia: MAC, local Surgeon: JORDAN LARA Estimated blood loss: minimal Pathology: none Condition: stable Disposition: no change
--- NOTE | 2018-11-28 16:53 | Procedure Note ---
Date of procedure: 11/28/18 Pre-op diagnosis: Respiratory Failure Post-op diagnosis: same Procedure: Bronchoscopic Report Written Consent was on the chart. Pre-op Dx Respiratory Failure Post-op Dx same Procedure Bronchoscopy for tracheostomy placement (CPT 99758) Surgeon Karma David MD Surgeon performing tracheostomy Kyle Bruner, Anesth MAC EBL min Specimen none Findings normal anatomy. No secretions. Complications none Disposition Stable in ICU Indications Procedure, risks, benefits, alternatives have been discussed. Consent was obtained. Procedure After time out was called, bronchoscopy was begun. Airway was evaluated. Secretions were aspirated. ETT was pulled back to about 20cm at the teeth. Later, had to be retracted to 18cm. Dr. Bruner performed the tracheostomy under bronchoscopic guidance. Introducer needle was seen safely entering the t rachea. Trach was placed after serial dilation. Bronchoscope was then inserted through the trach to confirm position. There was several centimeters of space above the sydnee. There was no significant bleeding. The pulsation of the innominate artery was not seen. Patient had good inspiratory and expiratory tidal volumes. Pt was stable in ICU. PEG placement (CPT [address]er) Timeout was called EGD scope was advanced into the stomach. Stomach was insufflated. Site was identified by good transillumination, at least 3 fingerbreadths away from costal margin and not too close to pylorus. After sterile prep and drape, Dr. Bruner anesthetized the planned insertion site and inserted the introducer needle. Wire was inserted and pulled back into the mouth. PEG tube was attached and then pulled into position by Dr. Bruner. EGD scope was re-inserted and button was identified. There was no bleeding and button was seen to be in good position. I then proceeded to evaluate the rest of the stomach and proximal portion of duodenum. The esophagus was evaluated as the scope was being pulled out. Pt tolerated the procedure well. The PEG collar was at 3cm at the skin level. Findings: irritation noted in trachea. gastritis type changes in stomach. Implants: 8 Shiley Trach tube; 20Fr PEG tube Anesthesia: MAC Surgeon: YANET DAVID (Trach per Dr. Bruner) Estimated blood loss: minimal Pathology: none Condition: stable Disposition: ICU
--- NOTE | 2018-11-28 16:57 | Progress Note ---
Assessment and Plan Assessment and plan: Patient is a 68 year old -Ser[place] woman who was initially admitted for acute on chronic systolic heart failure. She was managed with IV milrinone drip and IV bumex by cardiology. The drip was discontinued on 11/13 while the IV Bumex was changed to oral on 11/14. She coded on 11/15/18 and was successfully resuscitated and transferred to the ICU. She was extubated on 11/16/18 and had another cardiac arrest on 11/20/18 in which she survived but she was re-intubated. S/p cardiac arrest x2--Successfully resuscitated on 11/14/18 then patient arrested again on 11/20/18 Acute on chronic respiratory failure with hypoxia on MV > 96 hours, extubated on 11/16, care per pulmonology, re-intubated on 11/20 after second cardiac arrest, cont MV, mgt per pulmonology Cardiogenic Shock, resolved: off vaso-pressors, off dobutamine drip, Acute on Chronic systolic heart failure with EF of 10-15% mgt per cardiology, dobutamine drip off on 11/26/18, and diuretics as tolerated ACUTE GI BLEED- Most likely due to ischemic colitis from cardiac arrest, patient is too unstable for any intervention at this time, follow h/h closely Paroxysmal atrial fibrillation-Rate currently controlled, meds per cardiology- eliquis now on hold given gi bleed Hx of LUE DVT: Eliquis on hold due to gi bleed Hx of coronary artery disease:-cardiac cath 03/2018 revealed patent SVG to LAD, patent SVG to OM, patent SVG to PDA and patent diagonal stent, LVEF 10-15%. KERWIN, likely vasomotor nephropathy, ATN and/diuretic use: Management as per nephrology, worsening, HD planned COPD, chronic and stable Tobacco abuse: -Counseled on cessation Morbid obesity with BMI of 43.4: -Lifestyle modification recommended Prognosis is very poor. Cardiac arrest 2 and multiorgan failure, Disposition: continue inpatient care, tracheostomy today, HD catheter and then hopefully LTACH on Saturday CCT 32 minutes History Interval history: Patient was seen and examined. Follow-up on current diagnosis of Respiratory f ailure. No overnight events reported to me. Patient nodding her head to questions while on Mechanical Ventilator. Imaging, nursing note, chart, labs and old chart reviewed. Discussed with patient. Hospitalist Physical - Physical exam Narrative exam: Gen: ill appearing, intubated, bmi 43.3 HEENT: NCAT, EOMI, PERRL, OP Clear Neck: supple, no adenopathy, no thyromegaly, no JVD CVS/Heart: RRR, normal S1S2, pulses present bilaterally Chest/Lungs: Bibasilar Rales Symmetrical chest expansion, good air entry bilaterally GI/Abdomen: soft, NTND, good bowel sounds, no guarding or rebound /Bladder: no suprapubic tenderness, no CVA or paraspinal tenderness Extermity/Skin: dependent edema x 4 MSK: FROM x 4 Neuro: CN 2-12 grossly intact, no new focal deficits Psych: calm - Constitutional Vitals: Temp Pulse Resp BP Pulse Ox 97.8 F 108 H 16 124/64 100 11/28/18 15:57 11/28/18 15:01 11/28/18 15:01 11/28/18 15:01 11/28/18 16:29 General appearance: Present: other (intubated) Results - Labs CBC & Chem 7: 11/28/18 04:00 11/28/18 04:00 Labs: Laboratory Last Values WBC 10.5 K/mm3 (4.5-11.0) 11/28/18 04:00 RBC 3.24 M/mm3 (3.65-5.03) L 11/28/18 04:00 Hgb 11.0 gm/dl (10.1-14.3) 11/28/18 04:00 Hct 33.2 % (30.3-42.9) 11/28/18 04:00 MCV 103 fl (79-97) H 11/28/18 04:00 MCH 34 pg (28-32) H 11/28/18 04:00 MCHC 33 % (30-34) 11/28/18 04:00 RDW 17.0 % (13.2-15.2) H 11/28/18 04:00 Plt Count 159 K/mm3 (140-440) 11/28/18 04:00 Lymph % (Auto) 4.0 % (13.4-35.0) L 11/19/18 06:48 [place] % (Auto) 6.1 % (0.0-7.3) 11/19/18 06:48 Eos % (Auto) 0.0 % (0.0-4.3) 11/19/18 06:48 Baso % (Auto) 0.6 % (0.0-1.8) 11/19/18 06:48 Lymph # 0.3 K/mm3 (1.2-5.4) L 11/19/18 06:48 [place] # 0.5 K/mm3 (0.0-0.8) 11/19/18 06:48 Eos # 0.0 K/mm3 (0.0-0.4) 11/19/18 06:48 Baso # 0.0 K/mm3 (0.0-0.1) 11/19/18 06:48 Add Manual Diff Complete 11/22/18 05:35 Total Counted 100 11/22/18 05:35 Seg Neutrophils % Wing Scorer 11/22/18 05:35 Seg Neuts % (Manual) 89.0 % (40.0-70.0) H 11/22/18 05:35 1.0 % 11/22/18 05:35 2.0 % (13.4-35.0) L 11/22/18 05:35 Reactive Lymphs % (Man) 0 % 11/22/18 05:35 8.0 % (0.0-7.3) H 11/22/18 05:35 0 % (0.0-4.3) 11/22/18 05:35 0 % (0.0-1.8) 11/22/18 05:35 0 % 11/22/18 05:35 0 % 11/22/18 05:35 0 % 11/22/18 05:35 0 % 11/22/18 05:35 Nucleated RBC % Not Reportable 11/22/18 05:35 Seg Neutrophils # 7.4 K/mm3 (1.8-7.7) 11/19/18 06:48 Seg Neutrophils # Man 9.7 K/mm3 (1.8-7.7) H 11/22/18 05:35 Band Neutrophils # 0.1 K/mm3 11/22/18 05:35 0.2 K/mm3 (1.2-5.4) L 11/22/18 05:35 Abs React Lymphs (Man) 0.0 K/mm3 11/22/18 05:35 0.9 K/mm3 (0.0-0.8) H 11/22/18 05:35 0.0 K/mm3 (0.0-0.4) 11/22/18 05:35 0.0 K/mm3 (0.0-0.1) 11/22/18 05:35 0.0 K/mm3 11/22/18 05:35 0.0 K/mm3 11/22/18 05:35 0.0 K/mm3 11/22/18 05:35 Blast Cells # 0.0 K/mm3 11/22/18 05:35 WBC Morphology Not Reportable 11/22/18 05:35 Hypersegmented Neuts Not Reportable 11/22/18 05:35 Hyposegmented Neuts Not Reportable 11/22/18 05:35 Hypogranular Neuts Not Reportable 11/22/18 05:35 Not Reportable 11/22/18 05:35 Not Reportable 11/22/18 05:35 Not Reportable 11/22/18 05:35 Not Reportable 11/22/18 05:35 Not Reportable 11/22/18 05:35 Not Reportable 11/22/18 05:35 Consistent w auto 11/22/18 05:35 Not Reportable 11/22/18 05:35 Plt Clumps, EDTA Not Reportable 11/22/18 05:35 Not Reportable 11/22/18 05:35 Not Reportable 11/22/18 05:35 Not Reportable 11/22/18 05:35 Plt Morphology Comment Not Reportable 11/22/18 05:35 RBC Morphology Not Reportable 11/22/18 05:35 Dimorphic RBCs Not Reportable 11/22/18 05:35 Not Reportable 11/22/18 05:35 Not Reportable 11/22/18 05:35 1+ 11/22/18 05:35 1+ 11/22/18 05:35 Not Reportable 11/22/18 05:35 1+ 11/22/18 05:35 Not Reportable 11/22/18 05:35 Not Reportable 11/22/18 05:35 Not Reportable 11/22/18 05:35 Not Reportable 11/22/18 05:35 Not Reportable 11/22/18 05:35 Few 11/22/18 05:35 Not Reportable 11/22/18 05:35 Not Reportable 11/22/18 05:35 Not Reportable 11/22/18 05:35 Not Reportable 11/22/18 05:35 Not Reportable 11/22/18 05:35 Not Reportable 11/22/18 05:35 Few 11/22/18 05:35 Acanthocytes (Spur) Not Reportable 11/22/18 05:35 Rouleaux Not Reportable 11/22/18 05:35 Not Reportable 11/22/18 05:35 Not Reportable 11/22/18 05:35 Not Reportable 11/22/18 05:35 Not Reportable 11/22/18 05:35 Hem Pathologist Commnt No 11/22/18 05:35 PT 16.3 Sec. (12.2-14.9) H 11/28/18 Unknown INR 1.35 (0.87-1.13) H 11/28/18 Unknown APTT 28.5 Sec. (24.2-36.6) 11/15/18 18:41 POC ABG pH 7.453 (7.35-7.45) H 11/25/18 03:57 ABG pH 7.441 pH Units (7.350-7.450) 11/26/18 04:25 POC ABG pCO2 38.2 (35-45) 11/25/18 03:57 ABG pCO2 41.7 mm Hg 11/26/18 04:25 POC ABG pO2 96 (80-105) 11/25/18 03:57 ABG pO2 94.7 mm Hg (80.0-90.0) H 11/26/18 04:25 POC ABG HCO3 26.8 (22-26 mml/L) 11/25/18 03:57 ABG HCO3 27.8 mmol/L (20.0-26.0) H 11/26/18 04:25 POC ABG Total CO2 28 (23-27mmol/L) 11/25/18 03:57 POC ABG O2 Sat 98 11/25/18 03:57 ABG O2 Saturation 97.4 % (95.0-99.0) 11/26/18 04:25 ABG O2 Content 16.4 (0.0-44) 11/26/18 04:25 POC ABG Base Excess 3 ((-2) - (+3)mmol/L) 11/25/18 03:57 ABG Base Excess 3.3 mmol/L (-2.0-3.0) H 11/26/18 04:25 ABG Hemoglobin 12.2 gm/dl (12.0-16.0) 11/26/18 04:25 ABG Carboxyhemoglobin 2.0 % (0.0-5.0) 11/26/18 04:25 ABG Methemoglobin 0.4 % (0.0-1.5) 11/26/18 04:25 95.1 % (95.0-99.0) 11/26/18 04:25 30 % 11/26/18 04:25 Sodium 139 mmol/L (137-145) 11/28/18 04:00 Potassium 3.7 mmol/L (3.6-5.0) 11/28/18 04:00 Chloride 97.7 mmol/L (98-107) L 11/28/18 04:00 Carbon Dioxide 31 mmol/L (22-30) H 11/28/18 04:00 14 mmol/L 11/28/18 04:00 BUN 61 mg/dL (7-17) H 11/28/18 04:00 3.8 mg/dL (0.7-1.2) H 11/28/18 04:00 Estimated GFR 14 ml/min 11/28/18 04:00 16 % 11/28/18 04:00 Glucose 125 mg/dL (65-100) H 11/28/18 04:00 POC Glucose 134 (70-105) H 11/28/18 12:42 Lactic Acid 1.50 mmol/L (0.7-2.0) 11/21/18 13:25 Calcium 8.0 mg/dL (8.4-10.2) L 11/28/18 04:00 Phosphorus 5.90 mg/dL (2.5-4.5) H 11/21/18 05:55 Magnesium 2.00 mg/dL (1.7-2.3) 11/26/18 05:40 0.50 mg/dL (0.1-1.2) 11/20/18 Unknown AST 57 units/L (5-40) H 11/20/18 Unknown ALT 25 units/L (7-56) 11/20/18 Unknown 53 units/L (35-129) 11/20/18 Unknown 293 units/L (30-135) H 11/15/18 18:41 CK-MB (CK-2) 5.6 ng/mL (0.0-4.0) H 11/15/18 18:41 CK-MB (CK-2) Rel Index 1.9 (0-4) 11/15/18 18:41 3.550 ng/mL (0.00-0.029) H* 11/20/18 22:20 4.2 g/dL (6.3-8.2) L 11/20/18 Unknown 2.3 g/dL (3.9-5) L 11/20/18 Unknown 1.2 % 11/20/18 Unknown Triglycerides 107 mg/dL (2-149) 11/08/18 03:09 Cholesterol 176 mg/dL (50-199) 11/08/18 03:09 137 mg/dL (50-130) H 11/08/18 03:09 33 mg/dL (40-59) L 11/08/18 03:09 5.33 % 11/08/18 03:09 11 units/L (13-60) L 11/13/18 05:38 Yellow (Yellow) 11/16/18 09:26 Slightly-cloudy (Clear) 11/16/18 09:26 7.0 (5.0-7.0) 11/16/18 09:26 Ur Specific [place] 1.014 (1.003-1.030) 11/16/18 09:26 <15 mg/dl mg/dL (Negative) 11/16/18 09:26 Neg mg/dL (Negative) 11/16/18 09:26 Tr mg/dL (Negative) 11/16/18 09:26 Neg (Negative) 11/16/18 09:26 Neg (Negative) 11/16/18 09:26 Neg (Negative) 11/16/18 09:26 < 2.0 mg/dL (<2.0) 11/16/18 09:26 Ur Leukocyte Esterase Neg (Negative) 11/16/18 09:26 2.0 /HPF (0.0-6.0) 11/16/18 09:26 1.0 /HPF (0.0-6.0) 11/16/18 09:26 U Epithel Cells (Auto) < 1.0 /HPF (0-13.0) 11/16/18 09:26 2+ /HPF (Negative) 11/16/18 09:26 Few /HPF 11/16/18 09:26 1500 ml 11/25/18 15:16 28.7 mg/dL (0.1-20.0) H 11/25/18 15:16 Ur Creatinine 24 Hour 0.4 (0.8-2.8) L 11/25/18 15:16 Protein/Creatinin Ratio 0.27 11/16/18 09:26 28 mg/dL (5-11.8) H 11/16/18 09:26 Hepatitis A IgM Ab Non-reactive (NonReactive) 11/26/18 17:05 Hep Bs Antigen Non-reactive (Negative) 11/26/18 17:05 Hep B Core IgM Ab Non-reactive (NonReactive) 11/26/18 17:05 Non-reactive (NonReactive) 11/26/18 17:05 Blood Type O POSITIVE 11/19/18 Unknown Antibody Screen Negative 11/19/18 Unknown Active Medications - Current Medications Current Medications: Generic Name Dose Route Start Last Admin Trade Name Freq PRN Reason Stop Dose Admin Albuterol 2.5 mg 11/09/18 08:00 11/20/18 22:07 Proventil IH 2.5 mg Q4HRT PRN Administration Shortness Of Breath Amiodarone HCl 200 mg 11/10/18 22:00 11/28/18 10:18 Cordarone PO 200 mg BID RADHA Administration Lipase/Protease/Amylase 1 each 11/26/18 16:[address] 10,500 Unit FEEDTUBE PRN PRN For Clogged Feeding Tube Aspirin 81 mg 11/09/18 10:00 11/28/18 10:18 Halfprin Ec PO 81 mg DAILY RADHA Administration Atorvastatin Calcium 40 mg 11/11/18 22:00 11/27/18 21:02 Lipitor PO 40 mg QHS RADHA Administration Bupropion HCl 150 mg 11/21/18 10:00 11/28/18 10:21 Wellbutrin PO 150 mg BID RADHA Administration Dextrose 50 ml 11/20/18 21:45 D50w (25gm) Syringe IV PRN PRN Hypoglycemia Hydromorphone HCl 0.5 mg 11/19/18 11:21 11/28/18 10:19 Dilaudid IV 0.5 mg Q3H PRN Administration Pain , Severe (7-10) Hydrophilic Ointment 1 applic 11/20/18 20:27 11/27/18 09:04 Vaseline Lip Therapy TP 1 applic Q2HR PRN Administration Dry Lips Sodium Chloride 100 mls @ 999 mls/hr 11/28/18 12:00 Nacl 0.9% IV ANGEL PRN Hypotension Lansoprazole 30 mg 11/24/18 10:00 11/28/18 10:18 Prevacid Solutab FEEDTUBE 30 mg QDAY RADHA Administration Metoprolol Tartrate 2.5 mg 11/21/18 09:18 11/28/18 10:31 Lopressor IV 2.5 mg Q6HR PRN Administration Tachyarrhythmias Metoprolol Tartrate 12.5 mg 11/26/18 22:00 11/28/18 10:19 Lopressor PO 12.5 mg BID RADHA Administration Midazolam HCl 2 mg 11/20/18 20:27 11/21/18 04:08 Versed IV 2 mg Q10MIN PRN Administration Sedation Multi-Ingred Cream/Lotion/Oil/Oint 1 applic 11/20/18 20:27 Artificial Tears Ophth Oint OU Q4HR PRN Dry Eye(s) Ondansetron HCl 4 mg 11/11/18 13:44 11/27/18 14:39 Zofran IV 4 mg Q8H PRN Administration Nausea And Vomiting Polyethylene Glycol 17 gm 11/09/18 10:00 Miralax 3350 PO BID PRN Constipation Sertraline HCl 50 mg 11/09/18 10:00 11/28/18 10:19 Zoloft PO 50 mg DAILY RADHA Administration Simethicone 80 mg 11/12/18 11:49 11/27/18 14:39 Mylicon PO 80 mg Q6H PRN Administration Gas pain Simple Syrup 15 ml 11/26/18 16:41 Simple Syrup FEEDTUBE PRN PRN Hypoglycemia Simple Syrup 30 ml 11/26/18 16:41 Simple Syrup FEEDTUBE PRN PRN Hypoglycemia Sodium Bicarbonate 325 mg 11/26/18 16:41 Sodium Bicarbonate FEEDTUBE PRN PRN For Clogged Feeding Tube Sucralfate 1 gm 11/28/18 12:00 11/28/18 14:35 Carafate PO Not Given Q6HR [facility] Nutrition/Malnutrition Assess - Dietary Evaluation Nutrition/Malnutrition Findings: Nutrition Notes Start: 11/14/18 15:47 Freq: Status: Active Protocol: Document 11/27/18 14:34 RM (Rec: 11/27/18 14:36 RM [id number]) Nutrition Notes Initial or Follow up Brief Note Current Diagnosis Acute Kidney Injury,COPD, Coronary Artery Disease,Heart Failure,Respiratory Failure Other Pertinent Diagnosis On HD, s/p cardiac arrest, acute GIB Current Diet NPO after midnight Subjective/Other Information Observed Vital 1.2 infusing at 50 ml/hr. Nutrition Intervention Follow-Up By: 12/05/18 Additional Comments Follow for TF tolerance
[2018-11-28] MEDS ORDERED: AMIDATE IV ONE (16:58)
--- NOTE | 2018-11-28 16:58 | XRay Report ---
CHEST 1 VIEW 11/28/2018 4:36 PM INDICATION / CLINICAL INFORMATION: Post tracheostomy. COMPARISON: One view of the chest from 11/27/2018. FINDINGS: SUPPORT DEVICES: The ET tube has been exchanged for a tracheostomy tube, which is in good position. T he feeding tube has been removed. The left ICD and right IJV Vas-Cath are unchanged in position. HEART / MEDIASTINUM: Stable. LUNGS / PLEURA: Low lung volumes are again noted with slightly improved aeration. There are residual bilateral opacities, likely representing atelectasis/edema. A small left pleural effusion is again se en. No pneumothorax. ADDITIONAL FINDINGS: No significant additional findings. IMPRESSION: 1. Interval placement of a tracheostomy, which is in good position. 2. Additional findings as above. Signer Name: Ubaldo Vásquez MD Signed: 11/28/2018 4:53 PM Workstation Name: [id number]
--- NOTE | 2018-11-28 18:02 | Post Anesthesia Evaluation ---
- Post Anesthesia Evaluation Patient Participated: Yes Airway Patent: Yes Stable Respiratory Function: Yes Nausea/Vomiting: No Temp > 96.8F: Yes Pain Manageable: Yes Adequeate Hydration: Yes Anesthesia Complications: No Other Comments: Mild hypotension with MAPs 60s immediately post-procedure. Responded well to small doses of IV pressor bolus. RN advised patient may require low dose norepi gtt briefly until more awake.
[2018-11-28] MEDS ORDERED: NACL 0.9% 250ML 250 ML IV ONE (22:58)
--- NOTE | 2018-11-28 23:43 | Progress Note ---
Assessment and Plan Acute on Chronic systolic heart failure - resolved. Patient is currently euvolemic. monitor I/Os. Suspect non-compliance Multiple HF admission Lower GI bleed - per GI s/p Cardiopulmonary arrest device interrogation revealed no activity continue supportive care Acute renal failure -Patient now on dialysis. management per Nephrology Ascites Patient had paracentesis in previous admissions Hx of LUE DVT Hx of coronary artery disease - Continue ASA and statin. No BB due to hypotension. cardiac cath 03/2018 revealed patent SVG to LAD, patent SVG to OM, patent SVG to PDA and patent diagonal stent, LVEF 10-15%. Non-specific troponin - not risk control representative of ACS Hx of Ischemic cardiomyopathy ejection fraction 10-15% by echo 08/2018 volume management via dialysis No BB or ACEi at this time due to hypotension Presence of single chamber cardiac defibrillator Paroxysmal atrial fibrillation. Eliquis discontinued due to lower GI bleed. on amiodarone for rhythm control of atrial fibrillation, as well as suppression of wide complex tachycardia Tobacco abuse Mechanical ventilation with trach Subjective Date of service: 11/29/18 Principal diagnosis: blood in stool Interval history: No acute events. resting comfortably. Trached. No communicative. Objective Vital Signs Temp Pulse Pulse Resp BP Pulse Ox Pulse Ox 11/28/18 22:58 98.4 F 11/28/18 22:33 79 14 11/28/18 22:25 72 11/28/18 22:15 70 15 96/49 100 11/28/18 22:08 97.1 F L 70 14 103/52 100 11/28/18 22:00 71 16 103/52 100 11/28/18 21:45 70 16 93/54 70 L 11/28/18 21:30 72 15 101/53 11/28/18 21:20 68 101/53 97 11/28/18 21:16 71 14 104/30 83 L 11/28/18 21:15 72 104/30 11/28/18 21:00 79 79 14 116/40 88 11/28/18 20:45 75 14 107/45 11/28/18 20:30 72 14 120/45 11/28/18 20:15 73 15 105/45 11/28/18 20:00 97.6 F 72 15 112/48 11/28/18 19:59 72 112/48 11/28/18 19:45 82 20 106/44 11/28/18 19:30 72 12 114/44 11/28/18 19:15 75 15 115/58 11/28/18 19:00 71 13 106/51 100 11/28/18 18:50 97.8 F 92 H 14 98/58 100 11/28/18 18:45 91 H 14 98/59 100 11/28/18 18:40 92 H 98/59 11/28/18 18:30 94 H 14 112/53 11/28/18 18:16 97 H 15 112/56 98 11/28/18 18:00 91 H 15 105/63 97 11/28/18 17:46 91 H 17 148/37 11/28/18 17:30 91 H 14 135/45 11/28/18 17:15 71 14 128/51 100 11/28/18 17:14 73 100 11/28/18 17:00 75 14 102/43 100 11/28/18 16:55 87 14 123/72 100 11/28/18 16:45 87 14 103/44 100 11/28/18 16:35 91 H 14 102/43 100 11/28/18 16:30 89 14 111/26 100 11/28/18 16:29 100 11/28/18 16:15 127 H 12 125/29 100 11/28/18 16:00 131 H 13 128/86 11/28/18 15:57 97.8 F 11/28/18 15:51 100 11/28/18 15:45 95 H 12 97/63 11/28/18 15:35 97.8 F 91 H 18 96/57 100 11/28/18 15:30 119 H 18 121/39 100 11/28/18 15:15 97 H 19 108/33 100 11/28/18 15:01 108 H 16 124/64 98 11/28/18 14:45 101 H 18 142/51 100 11/28/18 14:31 116 H 22 142/51 100 11/28/18 14:15 96 H 18 133/61 100 11/28/18 14:00 108 H 23 133/61 100 11/28/18 13:45 108 H 17 110/63 100 11/28/18 13:31 108 H 14 110/63 100 11/28/18 13:15 115 H 17 120/57 100 11/28/18 13:01 99 H 24 105/48 100 11/28/18 12:45 107 H 24 114/66 100 11/28/18 12:31 108 H 13 95/67 100 11/28/18 12:15 116 H 20 95/67 97 11/28/18 12:01 107 H 14 102/60 99 11/28/18 12:00 98.9 F 11/28/18 11:45 108 H 20 120/59 100 11/28/18 11:31 128 H 21 120/59 99 11/28/18 11:15 133 H 17 128/66 99 11/28/18 11:00 121 H 18 125/59 98 11/28/18 10:45 133 H 16 131/71 99 11/28/18 10:31 139 H 11/28/18 10:30 127 H 18 131/71 100 11/28/18 10:19 110 H 11/28/18 10:15 109 H 17 145/62 100 11/28/18 10:01 109 H 22 132/51 100 11/28/18 09:45 109 H 12 127/54 100 11/28/18 09:31 96 H 12 127/54 100 11/28/18 09:15 102 H 15 115/58 100 11/28/18 09:01 110 H 21 115/58 100 11/28/18 08:45 113 H 15 117/61 100 11/28/18 08:31 106 H 14 117/61 100 11/28/18 08:15 95 H 19 100/58 100 11/28/18 08:00 98.1 F 95 H 18 100/58 100 11/28/18 07:52 100 11/28/18 07:45 94 H 16 99/51 100 11/28/18 07:40 90 13 99/51 100 11/28/18 07:31 94 H 14 99/51 100 11/28/18 07:15 86 15 92/56 100 11/28/18 07:01 94 H 14 100/51 100 11/28/18 06:45 94 H 13 117/59 100 11/28/18 06:31 93 H 14 117/59 100 11/28/18 06:15 94 H 18 100/58 100 11/28/18 06:00 93 H 13 100/58 100 11/28/18 05:45 93 H 13 94/55 100 11/28/18 05:31 93 H 14 108/57 99 11/28/18 05:15 84 14 108/57 100 11/28/18 05:00 94 H 14 107/57 100 11/28/18 04:45 78 14 101/56 100 11/28/18 04:39 70 117/60 100 11/28/18 04:30 84 14 101/56 100 11/28/18 04:15 79 14 118/56 100 11/28/18 04:00 85 14 118/57 100 11/28/18 03:45 76 14 119/59 100 11/28/18 03:30 79 14 119/59 100 11/28/18 03:15 97.4 F L 74 14 122/55 100 11/28/18 03:00 83 14 108/59 100 11/28/18 02:45 75 14 115/56 100 11/28/18 02:30 78 14 109/53 100 11/28/18 02:15 90 14 107/54 100 11/28/18 02:00 93 H 14 107/54 99 11/28/18 01:45 84 14 99/54 100 11/28/18 01:30 93 H 14 99/54 100 11/28/18 01:15 84 14 96/51 100 11/28/18 01:01 86 14 81/48 100 11/28/18 00:45 93 H 13 81/48 100 11/28/18 00:30 92 H 14 85/52 99 11/28/18 00:15 93 H 14 117/60 99 11/28/18 00:03 104 H 117/60 100 11/28/18 00:01 105 H 14 141/48 100 11/27/18 23:45 105 H 16 136/55 100 - Physical Examination General: Other (on the vent) HEENT: Positive: PERRL Neck: Positive: trachea midline Neuro: Positive: Grossly Intact Abdomen: Positive: Soft, Active Bowel Sounds Extremities: Present: +1 Edema - Labs and Meds Coagulation 11/28/18 Range/Units Unknown PT 16.3 H (12.2-14.9) Sec. INR 1.35 H (0.87-1.13) CBC 11/28/18 Range/Units 04:00 WBC 10.5 (4.5-11.0) K/mm3 RBC 3.24 L (3.65-5.03) M/mm3 Hgb 11.0 (10.1-14.3) gm/dl Hct 33.2 (30.3-42.9) % Plt Count 159 (140-440) K/mm3 Comprehensive Metabolic Panel 11/28/18 Range/Units 04:00 Sodium 139 (137-145) mmol/L Potassium 3.7 (3.6-5.0) mmol/L Chloride 97.7 L (98-107) mmol/L Carbon Dioxide 31 H (22-30) mmol/L BUN 61 H (7-17) mg/dL Creatinine 3.8 H (0.7-1.2) mg/dL Glucose 125 H (65-100) mg/dL Calcium 8.0 L (8.4-10.2) mg/dL
[2018-11-29] MEDS: CORDARONE PO SCH ×2 (01:40→10:24)
[2018-11-29] MEDS: LOPRESSOR PO SCH (01:41)
[2018-11-29] MEDS: WELLBUTRIN PO SCH ×2 (01:47→10:28)
[2018-11-29] MEDS: CARAFATE PO SCH ×3 (01:48→12:19)
[2018-11-29] MEDS: DILAUDID IV PRN ×2 (05:01→12:18)
[2018-11-29 08:54] LABS: Calcium 7.9 mg/dL (8.4-10.2)
[2018-11-29] MEDS: PREVACID SOLUTAB FEEDTUBE SCH (10:24)
[2018-11-29] MEDS: HALFPRIN EC PO SCH (10:24)
[2018-11-29] MEDS: ZOLOFT PO SCH (10:24)
--- NOTE | 2018-11-29 10:36 | Progress Note ---
Assessment and Plan - Patient Problems (1) HUNTER (obstructive sleep apnea) Current Visit: Yes Status: Acute (2) Breast anomaly Current Visit: Yes Status: Acute (3) COPD (chronic obstructive pulmonary disease) Current Visit: Yes Status: Chronic Qualifiers: Emphysema type: unspecified (4) Acute on chronic systolic heart failure Current Visit: No Status: Acute (5) Ischemic cardiomyopathy Current Visit: No Status: Acute (6) CHF (congestive heart failure) Current Visit: No Status: Chronic Qualifiers: Heart failure type: unspecified Heart failure chronicity: acute on chronic Qualified Code(s): I50.9 - Heart failure, unspecified (7) CHF with cardiomyopathy Current Visit: No Status: Chronic (8) COPD (chronic obstructive pulmonary disease) Current Visit: No Status: Chronic Qualifiers: COPD type: unspecified COPD Qualified Code(s): J44.9 - Chronic obstructive pulmonary disease, unspecified (9) Coronary artery disease Current Visit: No Status: Chronic Qualifiers: Coronary Disease-Associated Artery/Lesion type: bypass graft [place] vs. transplanted heart: [place] heart Subjective Principal diagnosis: blood in stool Interval history: sp trach on SBT today awake Objective Vital Signs - 12hr 11/28/18 11/28/18 11/28/18 22:45 22:58 23:00 Temperature 98.4 F Pulse Rate 71 82 Pulse Rate [ From Monitor] Respiratory 17 18 Rate Blood Pressure 79/49 85/57 O2 Sat by Pulse 100 100 Oximetry O2 Sat by Pulse Oximetry [ Assessment] 11/28/18 11/28/18 11/28/18 23:15 23:30 23:45 Temperature Pulse Rate 72 88 73 Pulse Rate [ From Monitor] Respiratory 13 14 13 Rate Blood Pressure 90/54 96/52 88/48 O2 Sat by Pulse 100 100 100 Oximetry O2 Sat by Pulse Oximetry [ Assessment] 11/29/18 11/29/18 11/29/18 00:00 00:15 00:18 Temperature Pulse Rate 83 72 73 Pulse Rate [ 83 From Monitor] Respiratory 16 14 Rate Blood Pressure 94/44 89/41 89/41 O2 Sat by Pulse 100 100 100 Oximetry O2 Sat by Pulse Oximetry [ Assessment] 11/29/18 11/29/18 11/29/18 00:29 00:30 00:45 Temperature Pulse Rate 73 67 Pulse Rate [ From Monitor] Respiratory 15 15 Rate Blood Pressure 87/43 84/51 O2 Sat by Pulse 100 100 Oximetry O2 Sat by Pulse 100 Oximetry [ Assessment] 11/29/18 11/29/18 11/29/18 01:00 01:15 01:30 Temperature Pulse Rate 72 71 71 Pulse Rate [ From Monitor] Respiratory 9 L 15 14 Rate Blood Pressure 92/46 91/37 88/45 O2 Sat by Pulse 100 100 100 Oximetry O2 Sat by Pulse Oximetry [ Assessment] 11/29/18 11/29/18 11/29/18 01:41 01:45 02:00 Temperature Pulse Rate 71 65 66 Pulse Rate [ From Monitor] Respiratory 17 14 Rate Blood Pressure 88/45 94/46 103/44 O2 Sat by Pulse 100 100 Oximetry O2 Sat by Pulse Oximetry [ Assessment] 11/29/18 11/29/18 11/29/18 02:15 02:30 02:45 Temperature Pulse Rate 80 60 70 Pulse Rate [ From Monitor] Respiratory 15 15 14 Rate Blood Pressure 104/51 112/49 96/50 O2 Sat by Pulse 100 100 100 Oximetry O2 Sat by Pulse Oximetry [ Assessment] 11/29/18 11/29/18 11/29/18 03:00 03:15 03:30 Temperature Pulse Rate 71 69 69 Pulse Rate [ From Monitor] Respiratory 16 15 14 Rate Blood Pressure 90/51 98/47 104/48 O2 Sat by Pulse 100 100 100 Oximetry O2 Sat by Pulse Oximetry [ Assessment] 11/29/18 11/29/18 11/29/18 03:34 03:45 04:00 Temperature 98.8 F Pulse Rate 74 75 Pulse Rate [ 75 From Monitor] Respiratory 15 14 Rate Blood Pressure 102/48 112/47 O2 Sat by Pulse 100 100 Oximetry O2 Sat by Pulse Oximetry [ Assessment] 11/29/18 11/29/18 11/29/18 04:15 04:20 04:30 Temperature Pulse Rate 78 73 72 Pulse Rate [ From Monitor] Respiratory 15 13 Rate Blood Pressure 105/48 112/47 107/41 O2 Sat by Pulse 100 100 100 Oximetry O2 Sat by Pulse Oximetry [ Assessment] 11/29/18 11/29/18 11/29/18 04:45 05:00 05:16 Temperature Pulse Rate 75 71 73 Pulse Rate [ From Monitor] Respiratory 15 16 15 Rate Blood Pressure 111/44 90/53 108/51 O2 Sat by Pulse 100 100 100 Oximetry O2 Sat by Pulse Oximetry [ Assessment] 11/29/18 11/29/18 11/29/18 05:30 05:46 06:00 Temperature Pulse Rate 88 96 H 92 H Pulse Rate [ From Monitor] Respiratory 14 16 15 Rate Blood Pressure 103/43 103/43 87/43 O2 Sat by Pulse 100 100 100 Oximetry O2 Sat by Pulse Oximetry [ Assessment] 11/29/18 11/29/18 11/29/18 06:16 06:30 06:46 Temperature Pulse Rate 101 H 93 H 92 H Pulse Rate [ From Monitor] Respiratory 23 19 18 Rate Blood Pressure 87/43 95/55 95/55 O2 Sat by Pulse 100 100 100 Oximetry O2 Sat by Pulse Oximetry [ Assessment] 11/29/18 11/29/18 11/29/18 07:00 07:16 07:30 Temperature Pulse Rate 92 H 89 92 H Pulse Rate [ From Monitor] Respiratory 17 14 14 Rate Blood Pressure 99/57 99/57 93/60 O2 Sat by Pulse 100 100 100 Oximetry O2 Sat by Pulse Oximetry [ Assessment] 11/29/18 11/29/18 11/29/18 07:46 08:00 08:16 Temperature Pulse Rate 92 H 93 H 92 H Pulse Rate [ From Monitor] Respiratory 14 14 17 Rate Blood Pressure 93/60 97/52 97/52 O2 Sat by Pulse 100 100 100 Oximetry O2 Sat by Pulse Oximetry [ Assessment] Constitutional: alert, other (critically ill on vent; obese sp trach 11/28) Eyes: non-icteric ENT: oropharynx moist Neck: supple Effort: normal Ascultation: Bilateral: clear (anteriorly, decreased due to obesity), other (coarse BS bilaterally) Percussion: Bilateral: not dull Cardiovascular: regular rate and rhythm (no mrg) Gastrointestinal: normoactive bowel sounds, soft, non-tender, non-distended Integumentary: normal Extremities: no cyanosis, pink and warm, edema (2+ bilateral LE edema) Neurologic: normal mental status, non-focal exam, pupils equal and round, CN II- XII normal Psychiatric: mood appropriate, affect normal CBC and BMP: 11/28/18 04:00 11/29/18 08:07 ABG, PT/INR, D-dimer: ABG POC ABG pH 7.453 (7.35-7.45) H 11/25/18 03:57 ABG pH 7.441 pH Units (7.350-7.450) 11/26/18 04:25 POC ABG pCO2 38.2 (35-45) 11/25/18 03:57 ABG pCO2 41.7 mm Hg 11/26/18 04:25 POC ABG pO2 96 (80-105) 11/25/18 03:57 ABG pO2 94.7 mm Hg (80.0-90.0) H 11/26/18 04:25 POC ABG HCO3 26.8 (22-26 mml/L) 11/25/18 03:57 POC ABG Total CO2 28 (23-27mmol/L) 11/25/18 03:57 POC ABG O2 Sat 98 11/25/18 03:57 ABG O2 Saturation 97.4 % (95.0-99.0) 11/26/18 04:25 PT/INR, D-dimer PT 16.3 Sec. (12.2-14.9) H 11/28/18 Unknown INR 1.35 (0.87-1.13) H 11/28/18 Unknown Abnormal lab findings: Abnormal Labs 11/08/18 11/08/18 11/08/18 03:09 03:09 05:50 WBC RBC 3.37 L MCV 106 H MCH 34 H RDW 17.1 H Lymph % (Auto) 4.6 L [place] % (Auto) 11.5 H Lymph # 0.2 L Seg Neutrophils % 83.0 H Seg Neuts % (Manual) Lymphocytes % (Manual) Monocytes % (Manual) Nucleated RBC % Seg Neutrophils # Man Lymphocytes # (Manual) Monocytes # (Manual) PT INR POC ABG pH POC ABG pCO2 POC ABG pO2 ABG pO2 ABG HCO3 ABG Base Excess Sodium 135 L Potassium Chloride Carbon Dioxide BUN 29 H Creatinine 1.4 H Glucose POC Glucose Lactic Acid Calcium 8.1 L Phosphorus AST Total Creatine Kinase CK-MB (CK-2) Troponin T 0.042 H 0.039 H Total Protein Albumin LDL Cholesterol Direct 137 H HDL Cholesterol 33 L Lipase Urine Creatinine Ur Creatinine 24 Hour Urine Total Protein 11/10/18 11/10/18 11/10/18 05:47 07:32 13:08 WBC RBC MCV MCH RDW Lymph % (Auto) [place] % (Auto) Lymph # Seg Neutrophils % Seg Neuts % (Manual) Lymphocytes % (Manual) Monocytes % (Manual) Nucleated RBC % Seg Neutrophils # Man Lymphocytes # (Manual) Monocytes # (Manual) PT INR POC ABG pH POC ABG pCO2 POC ABG pO2 ABG pO2 ABG HCO3 ABG Base Excess Sodium Potassium Chloride Carbon Dioxide 32 H BUN 25 H Creatinine Glucose 104 H POC Glucose 115 H 142 H Lactic Acid Calcium 7.9 L Phosphorus AST Total Creatine Kinase CK-MB (CK-2) Troponin T Total Protein Albumin LDL Cholesterol Direct HDL Cholesterol Lipase Urine Creatinine Ur Creatinine 24 Hour Urine Total Protein 11/10/18 11/10/18 11/11/18 16:55 21:21 07:51 WBC RBC MCV MCH RDW Lymph % (Auto) [place] % (Auto) Lymph # Seg Neutrophils % Seg Neuts % (Manual) Lymphocytes % (Manual) Monocytes % (Manual) Nucleated RBC % Seg Neutrophils # Man Lymphocytes # (Manual) Monocytes # (Manual) PT INR POC ABG pH POC ABG pCO2 POC ABG pO2 ABG pO2 ABG HCO3 ABG Base Excess Sodium Potassium Chloride Carbon Dioxide BUN Creatinine Glucose POC Glucose 125 H 126 H 118 H Lactic Acid Calcium Phosphorus AST Total Creatine Kinase CK-MB (CK-2) Troponin T Total Protein Albumin LDL Cholesterol Direct HDL Cholesterol Lipase Urine Creatinine Ur Creatinine 24 Hour Urine Total Protein 11/11/18 11/11/18 11/12/18 12:25 21:32 07:46 WBC RBC MCV MCH RDW Lymph % (Auto) [place] % (Auto) Lymph # Seg Neutrophils % Seg Neuts % (Manual) Lymphocytes % (Manual) Monocytes % (Manual) Nucleated RBC % Seg Neutrophils # Man Lymphocytes # (Manual) Monocytes # (Manual) PT INR POC ABG pH POC ABG pCO2 POC ABG pO2 ABG pO2 ABG HCO3 ABG Base Excess Sodium Potassium Chloride 97.7 L Carbon Dioxide BUN 28 H Creatinine Glucose POC Glucose 125 H 126 H Lactic Acid Calcium 8.0 L Phosphorus AST Total Creatine Kinase CK-MB (CK-2) Troponin T Total Protein Albumin LDL Cholesterol Direct HDL Cholesterol Lipase Urine Creatinine Ur Creatinine 24 Hour Urine Total Protein 11/12/18 11/12/18 11/13/18 08:57 11:35 05:38 WBC RBC MCV MCH RDW Lymph % (Auto) [place] % (Auto) Lymph # Seg Neutrophils % Seg Neuts % (Manual) Lymphocytes % (Manual) Monocytes % (Manual) Nucleated RBC % Seg Neutrophils # Man Lymphocytes # (Manual) Monocytes # (Manual) PT INR POC ABG pH POC ABG pCO2 POC ABG pO2 ABG pO2 ABG HCO3 ABG Base Excess Sodium Potassium Chloride 97.3 L Carbon Dioxide 31 H BUN 33 H Creatinine 1.5 H Glucose 111 H POC Glucose 120 H 137 H Lactic Acid Calcium 7.8 L Phosphorus AST Total Creatine Kinase CK-MB (CK-2) Troponin T Total Protein Albumin LDL Cholesterol Direct HDL Cholesterol Lipase Urine Creatinine Ur Creatinine 24 Hour Urine Total Protein 11/13/18 11/14/18 11/15/18 05:38 06:07 06:11 WBC RBC MCV MCH RDW Lymph % (Auto) [place] % (Auto) Lymph # Seg Neutrophils % Seg Neuts % (Manual) Lymphocytes % (Manual) Monocytes % (Manual) Nucleated RBC % Seg Neutrophils # Man Lymphocytes # (Manual) Monocytes # (Manual) PT INR POC ABG pH POC ABG pCO2 POC ABG pO2 ABG pO2 ABG HCO3 ABG Base Excess Sodium 135 L Potassium Chloride 96.8 L Carbon Dioxide BUN 36 H Creatinine 1.9 H Glucose 117 H POC Glucose 128 H Lactic Acid Calcium 8.2 L Phosphorus AST Total Creatine Kinase CK-MB (CK-2) Troponin T Total Protein Albumin LDL Cholesterol Direct HDL Cholesterol Lipase 11 L Urine Creatinine Ur Creatinine 24 Hour Urine Total Protein 11/15/18 11/15/18 11/15/18 08:50 18:41 18:41 WBC RBC 3.51 L MCV 103 H MCH 34 H RDW 17.4 H Lymph % (Auto) 3.3 L [place] % (Auto) 9.2 H Lymph # 0.2 L Seg Neutrophils % 87.2 H Seg Neuts % (Manual) Lymphocytes % (Manual) Monocytes % (Manual) Nucleated RBC % Seg Neutrophils # Man Lymphocytes # (Manual) Monocytes # (Manual) PT INR POC ABG pH 7.533 H POC ABG pCO2 33.9 L POC ABG pO2 237 H ABG pO2 ABG HCO3 ABG Base Excess Sodium 136 L Potassium Chloride 95.3 L Carbon Dioxide BUN 46 H Creatinine 2.3 H Glucose POC Glucose Lactic Acid Calcium 8.3 L Phosphorus AST Total Creatine Kinase CK-MB (CK-2) Troponin T Total Protein 4.6 L Albumin 1.8 L LDL Cholesterol Direct HDL Cholesterol Lipase Urine Creatinine Ur Creatinine 24 Hour Urine Total Protein 11/15/18 11/15/18 11/16/18 18:41 18:41 03:53 WBC RBC MCV MCH RDW Lymph % (Auto) [place] % (Auto) Lymph # Seg Neutrophils % Seg Neuts % (Manual) Lymphocytes % (Manual) Monocytes % (Manual) Nucleated RBC % Seg Neutrophils # Man Lymphocytes # (Manual) Monocytes # (Manual) PT 18.6 H INR 1.59 H POC ABG pH 7.507 H POC ABG pCO2 34.9 L POC ABG pO2 133 H ABG pO2 ABG HCO3 ABG Base Excess Sodium Potassium Chloride Carbon Dioxide BUN Creatinine Glucose POC Glucose Lactic Acid Calcium Phosphorus AST Total Creatine Kinase 293 H CK-MB (CK-2) 5.6 H Troponin T 2.830 H* Total Protein Albumin LDL Cholesterol Direct HDL Cholesterol Lipase Urine Creatinine Ur Creatinine 24 Hour Urine Total Protein 11/16/18 11/16/18 11/16/18 05:35 05:35 09:26 WBC RBC 3.44 L MCV 103 H MCH 34 H RDW 17.3 H Lymph % (Auto) 2.5 L [place] % (Auto) 9.3 H Lymph # 0.2 L Seg Neutrophils % 87.9 H Seg Neuts % (Manual) Lymphocytes % (Manual) Monocytes % (Manual) Nucleated RBC % Seg Neutrophils # Man Lymphocytes # (Manual) Monocytes # (Manual) PT INR POC ABG pH POC ABG pCO2 POC ABG pO2 ABG pO2 ABG HCO3 ABG Base Excess Sodium 135 L Potassium Chloride 95.9 L Carbon Dioxide BUN 47 H Creatinine 2.2 H Glucose POC Glucose Lactic Acid Calcium 8.1 L Phosphorus 4.60 H AST Total Creatine Kinase CK-MB (CK-2) Troponin T Total Protein Albumin LDL Cholesterol Direct HDL Cholesterol Lipase Urine Creatinine 103.3 H Ur Creatinine 24 Hour Urine Total Protein 11/16/18 11/17/18 11/18/18 09:26 10:42 04:45 WBC RBC 3.41 L 3.50 L MCV 104 H 104 H MCH 34 H 34 H RDW 17.4 H 17.7 H Lymph % (Auto) 4.1 L 4.9 L [place] % (Auto) 9.8 H 7.6 H Lymph # 0.2 L 0.3 L Seg Neutrophils % 85.8 H 87.1 H Seg Neuts % (Manual) Lymphocytes % (Manual) Monocytes % (Manual) Nucleated RBC % Seg Neutrophils # Man Lymphocytes # (Manual) Monocytes # (Manual) PT INR POC ABG pH POC ABG pCO2 POC ABG pO2 ABG pO2 ABG HCO3 ABG Base Excess Sodium Potassium Chloride Carbon Dioxide BUN Creatinine Glucose POC Glucose Lactic Acid Calcium Phosphorus AST Total Creatine Kinase CK-MB (CK-2) Troponin T Total Protein Albumin LDL Cholesterol Direct HDL Cholesterol Lipase Urine Creatinine 102.6 H Ur Creatinine 24 Hour Urine Total Protein 28 H 11/18/18 11/19/18 11/19/18 04:45 06:48 06:48 WBC RBC 3.63 L MCV 105 H MCH 35 H RDW 17.2 H Lymph % (Auto) 4.0 L [place] % (Auto) Lymph # 0.3 L Seg Neutrophils % 89.3 H Seg Neuts % (Manual) Lymphocytes % (Manual) Monocytes % (Manual) Nucleated RBC % Seg Neutrophils # Man Lymphocytes # (Manual) Monocytes # (Manual) PT INR POC ABG pH POC ABG pCO2 POC ABG pO2 ABG pO2 ABG HCO3 ABG Base Excess Sodium 135 L Potassium 3.5 L Chloride 95.9 L 95.4 L Carbon Dioxide BUN 58 H 64 H Creatinine 2.7 H 3.3 H Glucose 137 H 102 H POC Glucose Lactic Acid Calcium 7.7 L 8.0 L Phosphorus 5.00 H 6.10 H D AST Total Creatine Kinase CK-MB (CK-2) Troponin T Total Protein Albumin LDL Cholesterol Direct HDL Cholesterol Lipase Urine Creatinine Ur Creatinine 24 Hour Urine Total Protein 11/19/18 11/20/18 11/20/18 Unknown 01:15 04:30 WBC RBC 3.37 L MCV 105 H MCH 34 H RDW 17.5 H Lymph % (Auto) [place] % (Auto) Lymph # Seg Neutrophils % Seg Neuts % (Manual) 93.0 H Lymphocytes % (Manual) 3.0 L Monocytes % (Manual) Nucleated RBC % 1.0 H Seg Neutrophils # Man 8.1 H Lymphocytes # (Manual) 0.3 L Monocytes # (Manual) PT 23.2 H INR 2.11 H POC ABG pH POC ABG pCO2 POC ABG pO2 ABG pO2 ABG HCO3 ABG Base Excess Sodium Potassium Chloride Carbon Dioxide BUN Creatinine Glucose POC Glucose Lactic Acid 4.30 H* Calcium Phosphorus AST Total Creatine Kinase CK-MB (CK-2) Troponin T Total Protein Albumin LDL Cholesterol Direct HDL Cholesterol Lipase Urine Creatinine Ur Creatinine 24 Hour Urine Total Protein 11/20/18 11/20/18 11/20/18 04:30 19:25 21:33 WBC RBC MCV MCH RDW Lymph % (Auto) [place] % (Auto) Lymph # Seg Neutrophils % Seg Neuts % (Manual) Lymphocytes % (Manual) Monocytes % (Manual) Nucleated RBC % Seg Neutrophils # Man Lymphocytes # (Manual) Monocytes # (Manual) PT INR POC ABG pH 7.228 L POC ABG pCO2 30.5 L POC ABG pO2 160 H ABG pO2 ABG HCO3 ABG Base Excess Sodium 136 L Potassium Chloride 95.5 L Carbon Dioxide BUN 72 H Creatinine 3.6 H Glucose POC Glucose 106 H Lactic Acid Calcium 8.1 L Phosphorus 6.60 H AST Total Creatine Kinase CK-MB (CK-2) Troponin T Total Protein Albumin LDL Cholesterol Direct HDL Cholesterol Lipase Urine Creatinine Ur Creatinine 24 Hour Urine Total Protein 11/20/18 11/20/18 11/20/18 21:50 22:11 22:20 WBC RBC MCV MCH RDW Lymph % (Auto) [place] % (Auto) Lymph # Seg Neutrophils % Seg Neuts % (Manual) Lymphocytes % (Manual) Monocytes % (Manual) Nucleated RBC % Seg Neutrophils # Man Lymphocytes # (Manual) Monocytes # (Manual) PT INR POC ABG pH POC ABG pCO2 POC ABG pO2 ABG pO2 ABG HCO3 ABG Base Excess Sodium Potassium Chloride Carbon Dioxide BUN Creatinine Glucose POC Glucose 64 L 110 H Lactic Acid 8.40 H* Calcium Phosphorus AST Total Creatine Kinase CK-MB (CK-2) Troponin T Total Protein Albumin LDL Cholesterol Direct HDL Cholesterol Lipase Urine Creatinine Ur Creatinine 24 Hour Urine Total Protein 11/20/18 11/20/18 11/21/18 22:20 Unknown 04:52 WBC RBC MCV MCH RDW Lymph % (Auto) [place] % (Auto) Lymph # Seg Neutrophils % Seg Neuts % (Manual) Lymphocytes % (Manual) Monocytes % (Manual) Nucleated RBC % Seg Neutrophils # Man Lymphocytes # (Manual) Monocytes # (Manual) PT INR POC ABG pH 7.643 H POC ABG pCO2 POC ABG pO2 161 H ABG pO2 ABG HCO3 ABG Base Excess Sodium 134 L Potassium 5.5 H D Chloride 93.4 L Carbon Dioxide 17 L D BUN 72 H Creatinine 4.2 H Glucose POC Glucose Lactic Acid Calcium 8.0 L Phosphorus AST 57 H Total Creatine Kinase CK-MB (CK-2) Troponin T 3.550 H* Total Protein 4.2 L Albumin 2.3 L LDL Cholesterol Direct HDL Cholesterol Lipase Urine Creatinine Ur Creatinine 24 Hour Urine Total Protein 11/21/18 11/21/18 11/21/18 05:55 05:55 05:55 WBC 12.2 H RBC MCV 103 H MCH 34 H RDW 16.9 H Lymph % (Auto) [place] % (Auto) Lymph # Seg Neutrophils % Seg Neuts % (Manual) 96.0 H Lymphocytes % (Manual) 2.0 L Monocytes % (Manual) Nucleated RBC % Seg Neutrophils # Man 11.7 H Lymphocytes # (Manual) 0.2 L Monocytes # (Manual) PT INR POC ABG pH POC ABG pCO2 POC ABG pO2 ABG pO2 ABG HCO3 ABG Base Excess Sodium 136 L Potassium Chloride 94.2 L Carbon Dioxide BUN 76 H Creatinine 4.3 H Glucose 134 H POC Glucose Lactic Acid 2.70 H* Calcium 7.9 L Phosphorus 5.90 H AST Total Creatine Kinase CK-MB (CK-2) Troponin T Total Protein Albumin LDL Cholesterol Direct HDL Cholesterol Lipase Urine Creatinine Ur Creatinine 24 Hour Urine Total Protein 11/21/18 11/21/18 11/21/18 06:00 06:14 07:53 WBC RBC MCV MCH RDW Lymph % (Auto) [place] % (Auto) Lymph # Seg Neutrophils % Seg Neuts % (Manual) Lymphocytes % (Manual) Monocytes % (Manual) Nucleated RBC % Seg Neutrophils # Man Lymphocytes # (Manual) Monocytes # (Manual) PT INR POC ABG pH 7.516 H POC ABG pCO2 30.4 L POC ABG pO2 118 H ABG pO2 ABG HCO3 ABG Base Excess Sodium Potassium Chloride Carbon Dioxide BUN Creatinine Glucose POC Glucose 154 H Lactic Acid 2.50 H* Calcium Phosphorus AST Total Creatine Kinase CK-MB (CK-2) Troponin T Total Protein Albumin LDL Cholesterol Direct HDL Cholesterol Lipase Urine Creatinine Ur Creatinine 24 Hour Urine Total Protein 11/21/18 11/21/18 11/22/18 13:08 23:58 05:07 WBC RBC MCV MCH RDW Lymph % (Auto) [place] % (Auto) Lymph # Seg Neutrophils % Seg Neuts % (Manual) Lymphocytes % (Manual) Monocytes % (Manual) Nucleated RBC % Seg Neutrophils # Man Lymphocytes # (Manual) Monocytes # (Manual) PT INR POC ABG pH 7.452 H POC ABG pCO2 POC ABG pO2 79 L ABG pO2 ABG HCO3 ABG Base Excess Sodium Potassium Chloride Carbon Dioxide BUN Creatinine Glucose POC Glucose 115 H 121 H Lactic Acid Calcium Phosphorus AST Total Creatine Kinase CK-MB (CK-2) Troponin T Total Protein Albumin LDL Cholesterol Direct HDL Cholesterol Lipase Urine Creatinine Ur Creatinine 24 Hour Urine Total Protein 11/22/18 11/22/18 11/22/18 05:35 05:35 05:44 WBC RBC 3.00 L MCV 102 H MCH 34 H RDW 17.2 H Lymph % (Auto) [place] % (Auto) Lymph # Seg Neutrophils % Seg Neuts % (Manual) 89.0 H Lymphocytes % (Manual) 2.0 L Monocytes % (Manual) 8.0 H Nucleated RBC % Seg Neutrophils # Man 9.7 H Lymphocytes # (Manual) 0.2 L Monocytes # (Manual) 0.9 H PT INR POC ABG pH POC ABG pCO2 POC ABG pO2 ABG pO2 ABG HCO3 ABG Base Excess Sodium 136 L Potassium 3.5 L Chloride 97.0 L Carbon Dioxide BUN 78 H Creatinine 4.3 H Glucose 159 H POC Glucose 119 H Lactic Acid Calcium 7.3 L Phosphorus AST Total Creatine Kinase CK-MB (CK-2) Troponin T Total Protein Albumin LDL Cholesterol Direct HDL Cholesterol Lipase Urine Creatinine Ur Creatinine 24 Hour Urine Total Protein 11/23/18 11/23/18 11/24/18 03:29 04:22 04:19 WBC RBC MCV MCH RDW Lymph % (Auto) [place] % (Auto) Lymph # Seg Neutrophils % Seg Neuts % (Manual) Lymphocytes % (Manual) Monocytes % (Manual) Nucleated RBC % Seg Neutrophils # Man Lymphocytes # (Manual) Monocytes # (Manual) PT INR POC ABG pH 7.530 H 7.492 H POC ABG pCO2 32.3 L POC ABG pO2 ABG pO2 ABG HCO3 ABG Base Excess Sodium Potassium 3.2 L Chloride 95.4 L Carbon Dioxide BUN 83 H Creatinine 5.0 H Glucose POC Glucose Lactic Acid Calcium 7.9 L Phosphorus AST Total Creatine Kinase CK-MB (CK-2) Troponin T Total Protein Albumin LDL Cholesterol Direct HDL Cholesterol Lipase Urine Creatinine Ur Creatinine 24 Hour Urine Total Protein 11/24/18 11/25/18 11/25/18 Unknown 03:57 05:18 WBC RBC MCV MCH RDW Lymph % (Auto) [place] % (Auto) Lymph # Seg Neutrophils % Seg Neuts % (Manual) Lymphocytes % (Manual) Monocytes % (Manual) Nucleated RBC % Seg Neutrophils # Man Lymphocytes # (Manual) Monocytes # (Manual) PT INR POC ABG pH 7.453 H POC ABG pCO2 POC ABG pO2 ABG pO2 ABG HCO3 ABG Base Excess Sodium Potassium 3.1 L Chloride 95.3 L Carbon Dioxide BUN 86 H Creatinine 5.2 H Glucose POC Glucose 140 H Lactic Acid Calcium 7.9 L Phosphorus AST Total Creatine Kinase CK-MB (CK-2) Troponin T Total Protein Albumin LDL Cholesterol Direct HDL Cholesterol Lipase Urine Creatinine Ur Creatinine 24 Hour Urine Total Protein 11/25/18 11/25/18 11/25/18 05:40 12:26 15:16 WBC RBC MCV MCH RDW Lymph % (Auto) [place] % (Auto) Lymph # Seg Neutrophils % Seg Neuts % (Manual) Lymphocytes % (Manual) Monocytes % (Manual) Nucleated RBC % Seg Neutrophils # Man Lymphocytes # (Manual) Monocytes # (Manual) PT INR POC ABG pH POC ABG pCO2 POC ABG pO2 ABG pO2 ABG HCO3 ABG Base Excess Sodium 135 L Potassium Chloride 94.5 L Carbon Dioxide BUN 86 H Creatinine 5.4 H Glucose 118 H POC Glucose 120 H Lactic Acid Calcium 7.9 L Phosphorus AST Total Creatine Kinase CK-MB (CK-2) Troponin T Total Protein Albumin LDL Cholesterol Direct HDL Cholesterol Lipase Urine Creatinine 28.7 H Ur Creatinine 24 Hour 0.4 L Urine Total Protein 11/25/18 11/26/18 11/26/18 16:59 04:25 05:30 WBC RBC 3.10 L MCV 101 H MCH 34 H RDW 16.6 H Lymph % (Auto) [place] % (Auto) Lymph # Seg Neutrophils % Seg Neuts % (Manual) Lymphocytes % (Manual) Monocytes % (Manual) Nucleated RBC % Seg Neutrophils # Man Lymphocytes # (Manual) Monocytes # (Manual) PT INR POC ABG pH POC ABG pCO2 POC ABG pO2 ABG pO2 94.7 H ABG HCO3 27.8 H ABG Base Excess 3.3 H Sodium Potassium Chloride Carbon Dioxide BUN Creatinine Glucose POC Glucose 153 H Lactic Acid Calcium Phosphorus AST Total Creatine Kinase CK-MB (CK-2) Troponin T Total Protein Albumin LDL Cholesterol Direct HDL Cholesterol Lipase Urine Creatinine Ur Creatinine 24 Hour Urine Total Protein 11/26/18 11/26/18 11/26/18 05:39 05:40 11:32 WBC RBC MCV MCH RDW Lymph % (Auto) [place] % (Auto) Lymph # Seg Neutrophils % Seg Neuts % (Manual) Lymphocytes % (Manual) Monocytes % (Manual) Nucleated RBC % Seg Neutrophils # Man Lymphocytes # (Manual) Monocytes # (Manual) PT INR POC ABG pH POC ABG pCO2 POC ABG pO2 ABG pO2 ABG HCO3 ABG Base Excess Sodium Potassium 3.0 L Chloride 94.2 L Carbon Dioxide BUN 87 H Creatinine 5.2 H Glucose 147 H POC Glucose 130 H 152 H Lactic Acid Calcium 8.1 L Phosphorus AST Total Creatine Kinase CK-MB (CK-2) Troponin T Total Protein Albumin LDL Cholesterol Direct HDL Cholesterol Lipase Urine Creatinine Ur Creatinine 24 Hour Urine Total Protein 11/26/18 11/26/18 11/27/18 18:10 23:25 04:00 WBC RBC 3.12 L MCV 103 H MCH 34 H RDW 17.6 H Lymph % (Auto) [place] % (Auto) Lymph # Seg Neutrophils % Seg Neuts % (Manual) Lymphocytes % (Manual) Monocytes % (Manual) Nucleated RBC % Seg Neutrophils # Man Lymphocytes # (Manual) Monocytes # (Manual) PT INR POC ABG pH POC ABG pCO2 POC ABG pO2 ABG pO2 ABG HCO3 ABG Base Excess Sodium Potassium Chloride Carbon Dioxide BUN Creatinine Glucose POC Glucose 164 H 126 H Lactic Acid Calcium Phosphorus AST Total Creatine Kinase CK-MB (CK-2) Troponin T Total Protein Albumin LDL Cholesterol Direct HDL Cholesterol Lipase Urine Creatinine Ur Creatinine 24 Hour Urine Total Protein 11/27/18 11/27/18 11/27/18 04:00 05:48 11:55 WBC RBC MCV MCH RDW Lymph % (Auto) [place] % (Auto) Lymph # Seg Neutrophils % Seg Neuts % (Manual) Lymphocytes % (Manual) Monocytes % (Manual) Nucleated RBC % Seg Neutrophils # Man Lymphocytes # (Manual) Monocytes # (Manual) PT INR POC ABG pH POC ABG pCO2 POC ABG pO2 ABG pO2 ABG HCO3 ABG Base Excess Sodium Potassium 3.5 L Chloride 97.0 L Carbon Dioxide 33 H BUN 73 H Creatinine 4.6 H Glucose 119 H POC Glucose 124 H 138 H Lactic Acid Calcium 8.0 L Phosphorus AST Total Creatine Kinase CK-MB (CK-2) Troponin T Total Protein Albumin LDL Cholesterol Direct HDL Cholesterol Lipase Urine Creatinine Ur Creatinine 24 Hour Urine Total Protein 11/27/18 11/28/18 11/28/18 17:07 00:09 04:00 WBC RBC 3.24 L MCV 103 H MCH 34 H RDW 17.0 H Lymph % (Auto) [place] % (Auto) Lymph # Seg Neutrophils % Seg Neuts % (Manual) Lymphocytes % (Manual) Monocytes % (Manual) Nucleated RBC % Seg Neutrophils # Man Lymphocytes # (Manual) Monocytes # (Manual) PT INR POC ABG pH POC ABG pCO2 POC ABG pO2 ABG pO2 ABG HCO3 ABG Base Excess Sodium Potassium Chloride Carbon Dioxide BUN Creatinine Glucose POC Glucose 125 H 125 H Lactic Acid Calcium Phosphorus AST Total Creatine Kinase CK-MB (CK-2) Troponin T Total Protein Albumin LDL Cholesterol Direct HDL Cholesterol Lipase Urine Creatinine Ur Creatinine 24 Hour Urine Total Protein 11/28/18 11/28/18 11/28/18 04:00 05:02 12:42 WBC RBC MCV MCH RDW Lymph % (Auto) [place] % (Auto) Lymph # Seg Neutrophils % Seg Neuts % (Manual) Lymphocytes % (Manual) Monocytes % (Manual) Nucleated RBC % Seg Neutrophils # Man Lymphocytes # (Manual) Monocytes # (Manual) PT INR POC ABG pH POC ABG pCO2 POC ABG pO2 ABG pO2 ABG HCO3 ABG Base Excess Sodium Potassium Chloride 97.7 L Carbon Dioxide 31 H BUN 61 H Creatinine 3.8 H Glucose 125 H POC Glucose 126 H 134 H Lactic Acid Calcium 8.0 L Phosphorus AST Total Creatine Kinase CK-MB (CK-2) Troponin T Total Protein Albumin LDL Cholesterol Direct HDL Cholesterol Lipase Urine Creatinine Ur Creatinine 24 Hour Urine Total Protein 11/28/18 11/28/18 11/28/18 17:54 23:27 Unknown WBC RBC MCV MCH RDW Lymph % (Auto) [place] % (Auto) Lymph # Seg Neutrophils % Seg Neuts % (Manual) Lymphocytes % (Manual) Monocytes % (Manual) Nucleated RBC % Seg Neutrophils # Man Lymphocytes # (Manual) Monocytes # (Manual) PT 16.3 H INR 1.35 H POC ABG pH POC ABG pCO2 POC ABG pO2 ABG pO2 ABG HCO3 ABG Base Excess Sodium Potassium Chloride Carbon Dioxide BUN Creatinine Glucose POC Glucose 107 H 118 H Lactic Acid Calcium Phosphorus AST Total Creatine Kinase CK-MB (CK-2) Troponin T Total Protein Albumin LDL Cholesterol Direct HDL Cholesterol Lipase Urine Creatinine Ur Creatinine 24 Hour Urine Total Protein 11/29/18 11/29/18 05:21 08:07 WBC RBC MCV MCH RDW Lymph % (Auto) [place] % (Auto) Lymph # Seg Neutrophils % Seg Neuts % (Manual) Lymphocytes % (Manual) Monocytes % (Manual) Nucleated RBC % Seg Neutrophils # Man Lymphocytes # (Manual) Monocytes # (Manual) PT INR POC ABG pH POC ABG pCO2 POC ABG pO2 ABG pO2 ABG HCO3 ABG Base Excess Sodium Potassium Chloride Carbon Dioxide BUN 53 H Creatinine 3.4 H Glucose 137 H POC Glucose 134 H Lactic Acid Calcium 7.9 L Phosphorus AST Total Creatine Kinase CK-MB (CK-2) Troponin T Total Protein Albumin LDL Cholesterol Direct HDL Cholesterol Lipase Urine Creatinine Ur Creatinine 24 Hour Urine Total Protein
--- NOTE | 2018-11-29 12:24 | Progress Note ---
Assessment and Plan 68 yo s/p fiberoptic bronchoscopy, trach and PEG placement, POD 1 1. VDRF 2. s/p cardiac arrest x2 3. CHF, EF of 10-15% 4. Afib 5. AICD 6. CAD with hx of cardiac stenting and bypass 7. GIB Plan: 1. wean vent per ICU team 2. c/w TF - currently at goal 3. further management per 1' and consultants 4. will s/o. Per notes, patient being discharged to LTAC today. Please remove tracheostomy sutures on 12/05/18 Thank you, please call with questions. Subjective Date of service: 11/29/18 Narrative: Pt seen and examined. c/o lower abdominal pain. No f/c. Tolerating TF Objective Vital Signs - 12hr 11/29/18 11/29/18 11/29/18 00:29 00:30 00:45 Temperature Pulse Rate 73 67 Pulse Rate [ From Monitor] Respiratory 15 15 Rate Blood Pressure 87/43 84/51 O2 Sat by Pulse 100 100 Oximetry O2 Sat by Pulse 100 Oximetry [ Assessment] 11/29/18 11/29/18 11/29/18 01:00 01:15 01:30 Temperature Pulse Rate 72 71 71 Pulse Rate [ From Monitor] Respiratory 9 L 15 14 Rate Blood Pressure 92/46 91/37 88/45 O2 Sat by Pulse 100 100 100 Oximetry O2 Sat by Pulse Oximetry [ Assessment] 11/29/18 11/29/18 11/29/18 01:41 01:45 02:00 Temperature Pulse Rate 71 65 66 Pulse Rate [ From Monitor] Respiratory 17 14 Rate Blood Pressure 88/45 94/46 103/44 O2 Sat by Pulse 100 100 Oximetry O2 Sat by Pulse Oximetry [ Assessment] 11/29/18 11/29/18 11/29/18 02:15 02:30 02:45 Temperature Pulse Rate 80 60 70 Pulse Rate [ From Monitor] Respiratory 15 15 14 Rate Blood Pressure 104/51 112/49 96/50 O2 Sat by Pulse 100 100 100 Oximetry O2 Sat by Pulse Oximetry [ Assessment] 11/29/18 11/29/18 11/29/18 03:00 03:15 03:30 Temperature Pulse Rate 71 69 69 Pulse Rate [ From Monitor] Respiratory 16 15 14 Rate Blood Pressure 90/51 98/47 104/48 O2 Sat by Pulse 100 100 100 Oximetry O2 Sat by Pulse Oximetry [ Assessment] 11/29/18 11/29/18 11/29/18 03:34 03:45 04:00 Temperature 98.8 F Pulse Rate 74 75 Pulse Rate [ 75 From Monitor] Respiratory 15 14 Rate Blood Pressure 102/48 112/47 O2 Sat by Pulse 100 100 Oximetry O2 Sat by Pulse Oximetry [ Assessment] 11/29/18 11/29/18 11/29/18 04:15 04:20 04:30 Temperature Pulse Rate 78 73 72 Pulse Rate [ From Monitor] Respiratory 15 13 Rate Blood Pressure 105/48 112/47 107/41 O2 Sat by Pulse 100 100 100 Oximetry O2 Sat by Pulse Oximetry [ Assessment] 11/29/18 11/29/18 11/29/18 04:45 05:00 05:16 Temperature Pulse Rate 75 71 73 Pulse Rate [ From Monitor] Respiratory 15 16 15 Rate Blood Pressure 111/44 90/53 108/51 O2 Sat by Pulse 100 100 100 Oximetry O2 Sat by Pulse Oximetry [ Assessment] 11/29/18 11/29/18 11/29/18 05:30 05:46 06:00 Temperature Pulse Rate 88 96 H 92 H Pulse Rate [ From Monitor] Respiratory 14 16 15 Rate Blood Pressure 103/43 103/43 87/43 O2 Sat by Pulse 100 100 100 Oximetry O2 Sat by Pulse Oximetry [ Assessment] 11/29/18 11/29/18 11/29/18 06:16 06:30 06:46 Temperature Pulse Rate 101 H 93 H 92 H Pulse Rate [ From Monitor] Respiratory 23 19 18 Rate Blood Pressure 87/43 95/55 95/55 O2 Sat by Pulse 100 100 100 Oximetry O2 Sat by Pulse Oximetry [ Assessment] 11/29/18 11/29/18 11/29/18 07:00 07:16 07:30 Temperature Pulse Rate 92 H 89 92 H Pulse Rate [ From Monitor] Respiratory 17 14 14 Rate Blood Pressure 99/57 99/57 93/60 O2 Sat by Pulse 100 100 100 Oximetry O2 Sat by Pulse Oximetry [ Assessment] 11/29/18 11/29/18 11/29/18 07:46 08:00 08:16 Temperature 98.2 F Pulse Rate 92 H 93 H 92 H Pulse Rate [ From Monitor] Respiratory 14 14 17 Rate Blood Pressure 93/60 97/52 97/52 O2 Sat by Pulse 100 100 100 Oximetry O2 Sat by Pulse Oximetry [ Assessment] 11/29/18 11/29/18 11/29/18 08:30 08:46 09:00 Temperature Pulse Rate 94 H 94 H 94 H Pulse Rate [ From Monitor] Respiratory 18 18 13 Rate Blood Pressure 100/60 100/60 95/54 O2 Sat by Pulse 100 100 100 Oximetry O2 Sat by Pulse Oximetry [ Assessment] 11/29/18 11/29/18 11/29/18 09:16 09:30 09:46 Temperature Pulse Rate 100 H 102 H 101 H Pulse Rate [ From Monitor] Respiratory 14 21 17 Rate Blood Pressure 95/54 111/60 111/60 O2 Sat by Pulse 100 100 100 Oximetry O2 Sat by Pulse Oximetry [ Assessment] 11/29/18 11/29/18 11/29/18 10:00 10:16 10:30 Temperature Pulse Rate 101 H 117 H 115 H Pulse Rate [ From Monitor] Respiratory 18 19 23 Rate Blood Pressure 111/60 87/49 92/58 O2 Sat by Pulse 100 100 100 Oximetry O2 Sat by Pulse Oximetry [ Assessment] 11/29/18 11/29/18 11/29/18 10:46 11:00 11:16 Temperature Pulse Rate 106 H 114 H 115 H Pulse Rate [ From Monitor] Respiratory 12 22 24 Rate Blood Pressure 92/58 92/58 92/57 O2 Sat by Pulse 100 100 100 Oximetry O2 Sat by Pulse Oximetry [ Assessment] 11/29/18 11/29/18 11:30 11:41 Temperature Pulse Rate 112 H 123 H Pulse Rate [ From Monitor] Respiratory 24 21 Rate Blood Pressure 98/61 98/61 O2 Sat by Pulse 100 100 Oximetry O2 Sat by Pulse Oximetry [ Assessment] - General physical appearance Narrative Exam: Gen: Awake and alert. NAD ENT: Tracheostomy in place without bleeding or hematoma. Site c/d/i CV; s1, S2+ tachy Resp: on vent Abd: soft, ND, mild TTP in lower abdomen, anasarca in the tissues in this area. ND. PEG site c/d/i with TF running - at 3.5 at skin Ext: +edema - Labs 11/28/18 04:00 11/29/18 08:07 Diabetes panel 11/29/18 Range/Units 08:07 Sodium 138 (137-145) mmol/L Potassium 3.8 (3.6-5.0) mmol/L Chloride 99.1 (98-107) mmol/L Carbon Dioxide 30 (22-30) mmol/L BUN 53 H (7-17) mg/dL Creatinine 3.4 H (0.7-1.2) mg/dL Glucose 137 H (65-100) mg/dL Calcium 7.9 L (8.4-10.2) mg/dL Calcium panel 11/29/18 Range/Units 08:07 Calcium 7.9 L (8.4-10.2) mg/dL Pituitary panel 11/29/18 Range/Units 08:07 Sodium 138 (137-145) mmol/L Potassium 3.8 (3.6-5.0) mmol/L Chloride 99.1 (98-107) mmol/L Carbon Dioxide 30 (22-30) mmol/L BUN 53 H (7-17) mg/dL Creatinine 3.4 H (0.7-1.2) mg/dL Glucose 137 H (65-100) mg/dL Calcium 7.9 L (8.4-10.2) mg/dL Adrenal panel 11/29/18 Range/Units 08:07 Sodium 138 (137-145) mmol/L Potassium 3.8 (3.6-5.0) mmol/L Chloride 99.1 (98-107) mmol/L Carbon Dioxide 30 (22-30) mmol/L BUN 53 H (7-17) mg/dL Creatinine 3.4 H (0.7-1.2) mg/dL Glucose 137 H (65-100) mg/dL Calcium 7.9 L (8.4-10.2) mg/dL
--- NOTE | 2018-11-29 12:29 | Progress Note ---
Assessment and Plan Acute renal failure likely ischemic ATN due to cardiac arrest Acute Hypoxic respiratory failure on mechanical ventilation Acute on Chronic systolic heart failure with EF of 10-15 % Paroxysmal atrial fibrillation Hypokalemia - Renal function reviewed. Serum creatinine was 3.4 today, yesterday's level was 3.8 - No acute indication for HD today - Monitor for signs of renal recovery - No significant proteinuria, renal US negative for obstruction - Renally dose medications - Strict I&O - Recorded Intake= 1150 ml Output= 300 ml ( Net= 800 ml) - Harrison Catheter: No - Renal plan d/w Dr Corrales Subjective Date of service: 11/29/18 Principal diagnosis: blood in stool Interval history: Pt seen in ICU, trached, doesn't follow commands, no family at bedside Objective - Vital Signs Vital signs: Vital Signs - 12hr 11/29/18 11/29/18 11/29/18 00:29 00:30 00:45 Temperature Pulse Rate 73 67 Pulse Rate [ From Monitor] Respiratory 15 15 Rate Blood Pressure 87/43 84/51 O2 Sat by Pulse 100 100 Oximetry O2 Sat by Pulse 100 Oximetry [ Assessment] 11/29/18 11/29/18 11/29/18 01:00 01:15 01:30 Temperature Pulse Rate 72 71 71 Pulse Rate [ From Monitor] Respiratory 9 L 15 14 Rate Blood Pressure 92/46 91/37 88/45 O2 Sat by Pulse 100 100 100 Oximetry O2 Sat by Pulse Oximetry [ Assessment] 11/29/18 11/29/18 11/29/18 01:41 01:45 02:00 Temperature Pulse Rate 71 65 66 Pulse Rate [ From Monitor] Respiratory 17 14 Rate Blood Pressure 88/45 94/46 103/44 O2 Sat by Pulse 100 100 Oximetry O2 Sat by Pulse Oximetry [ Assessment] 11/29/18 11/29/18 11/29/18 02:15 02:30 02:45 Temperature Pulse Rate 80 60 70 Pulse Rate [ From Monitor] Respiratory 15 15 14 Rate Blood Pressure 104/51 112/49 96/50 O2 Sat by Pulse 100 100 100 Oximetry O2 Sat by Pulse Oximetry [ Assessment] 11/29/18 11/29/18 11/29/18 03:00 03:15 03:30 Temperature Pulse Rate 71 69 69 Pulse Rate [ From Monitor] Respiratory 16 15 14 Rate Blood Pressure 90/51 98/47 104/48 O2 Sat by Pulse 100 100 100 Oximetry O2 Sat by Pulse Oximetry [ Assessment] 11/29/18 11/29/18 11/29/18 03:34 03:45 04:00 Temperature 98.8 F Pulse Rate 74 75 Pulse Rate [ 75 From Monitor] Respiratory 15 14 Rate Blood Pressure 102/48 112/47 O2 Sat by Pulse 100 100 Oximetry O2 Sat by Pulse Oximetry [ Assessment] 11/29/18 11/29/18 11/29/18 04:15 04:20 04:30 Temperature Pulse Rate 78 73 72 Pulse Rate [ From Monitor] Respiratory 15 13 Rate Blood Pressure 105/48 112/47 107/41 O2 Sat by Pulse 100 100 100 Oximetry O2 Sat by Pulse Oximetry [ Assessment] 11/29/18 11/29/18 11/29/18 04:45 05:00 05:16 Temperature Pulse Rate 75 71 73 Pulse Rate [ From Monitor] Respiratory 15 16 15 Rate Blood Pressure 111/44 90/53 108/51 O2 Sat by Pulse 100 100 100 Oximetry O2 Sat by Pulse Oximetry [ Assessment] 11/29/18 11/29/18 11/29/18 05:30 05:46 06:00 Temperature Pulse Rate 88 96 H 92 H Pulse Rate [ From Monitor] Respiratory 14 16 15 Rate Blood Pressure 103/43 103/43 87/43 O2 Sat by Pulse 100 100 100 Oximetry O2 Sat by Pulse Oximetry [ Assessment] 11/29/18 11/29/18 11/29/18 06:16 06:30 06:46 Temperature Pulse Rate 101 H 93 H 92 H Pulse Rate [ From Monitor] Respiratory 23 19 18 Rate Blood Pressure 87/43 95/55 95/55 O2 Sat by Pulse 100 100 100 Oximetry O2 Sat by Pulse Oximetry [ Assessment] 11/29/18 11/29/18 11/29/18 07:00 07:16 07:30 Temperature Pulse Rate 92 H 89 92 H Pulse Rate [ From Monitor] Respiratory 17 14 14 Rate Blood Pressure 99/57 99/57 93/60 O2 Sat by Pulse 100 100 100 Oximetry O2 Sat by Pulse Oximetry [ Assessment] 11/29/18 11/29/18 11/29/18 07:46 08:00 08:16 Temperature 98.2 F Pulse Rate 92 H 93 H 92 H Pulse Rate [ From Monitor] Respiratory 14 14 17 Rate Blood Pressure 93/60 97/52 97/52 O2 Sat by Pulse 100 100 100 Oximetry O2 Sat by Pulse Oximetry [ Assessment] 11/29/18 11/29/18 11/29/18 08:30 08:46 09:00 Temperature Pulse Rate 94 H 94 H 94 H Pulse Rate [ From Monitor] Respiratory 18 18 13 Rate Blood Pressure 100/60 100/60 95/54 O2 Sat by Pulse 100 100 100 Oximetry O2 Sat by Pulse Oximetry [ Assessment] 11/29/18 11/29/18 11/29/18 09:16 09:30 09:46 Temperature Pulse Rate 100 H 102 H 101 H Pulse Rate [ From Monitor] Respiratory 14 21 17 Rate Blood Pressure 95/54 111/60 111/60 O2 Sat by Pulse 100 100 100 Oximetry O2 Sat by Pulse Oximetry [ Assessment] 11/29/18 11/29/18 11/29/18 10:00 10:16 10:30 Temperature Pulse Rate 101 H 117 H 115 H Pulse Rate [ From Monitor] Respiratory 18 19 23 Rate Blood Pressure 111/60 87/49 92/58 O2 Sat by Pulse 100 100 100 Oximetry O2 Sat by Pulse Oximetry [ Assessment] 11/29/18 11/29/18 11/29/18 10:46 11:00 11:16 Temperature Pulse Rate 106 H 114 H 115 H Pulse Rate [ From Monitor] Respiratory 12 22 24 Rate Blood Pressure 92/58 92/58 92/57 O2 Sat by Pulse 100 100 100 Oximetry O2 Sat by Pulse Oximetry [ Assessment] 11/29/18 11/29/18 11:30 11:41 Temperature Pulse Rate 112 H 123 H Pulse Rate [ From Monitor] Respiratory 24 21 Rate Blood Pressure 98/61 98/61 O2 Sat by Pulse 100 100 Oximetry O2 Sat by Pulse Oximetry [ Assessment] - General Appearance General appearance: other (trach) EENT: other (tracheostomy in place) Neck: no JVD Respiratory: Present: Decreased Breath Sounds (trach) Cardiology: regular, S1S2, other (ACCESS: Right IJ Vas Catheter ) Gastrointestinal: normoactive bowel sounds (PEG tube intact) Integumentary: warm and dry Neurologic: other (pt doesn't follow commands) Musculoskeletal: other (trace to 1+ edema to BLE) - Lab 11/28/18 04:00 11/29/18 08:07 Most recent lab results ABG pH 7.441 pH Units (7.350-7.450) 11/26/18 04:25 ABG pCO2 41.7 mm Hg 11/26/18 04:25 ABG pO2 94.7 mm Hg (80.0-90.0) H 11/26/18 04:25 ABG HCO3 27.8 mmol/L (20.0-26.0) H 11/26/18 04:25 ABG O2 Saturation 97.4 % (95.0-99.0) 11/26/18 04:25 Calcium 7.9 mg/dL (8.4-10.2) L 11/29/18 08:07 Phosphorus 5.90 mg/dL (2.5-4.5) H 11/21/18 05:55 Magnesium 2.00 mg/dL (1.7-2.3) 11/26/18 05:40 28.7 mg/dL (0.1-20.0) H 11/25/18 15:16 28 mg/dL (5-11.8) H 11/16/18 09:26 Medications & Allergies - Medications Allergies/Adverse Reactions: Allergies lisinopril Allergy (Verified 02/24/18 09:15) Anaphylaxis Penicillins Allergy (Verified 02/24/18 09:15) Seizure Sulfa (Sulfonamide Antibiotics) Adverse Reaction (Verified 02/24/18 09:15) Hives Home Medications: Home Medications Medication Instructions Recorded Confirmed Last Taken Type Sertraline HCl [Zoloft] 50 mg PO DAILY 05/10/18 11/08/18 05/09/18 History Apixaban [Eliquis] 5 mg PO Q12HR #60 tablet 07/02/18 11/08/18 Unknown Rx Polyethylene Glycol 3350 [Miralax 17 gm PO BID PRN #30 powd.pack 07/02/18 11/08/18 Unknown Rx 3350] ALBUTEROL NEB's [Proventil 0.083% 2.5 mg IH Q4HRT PRN #30 nebu 11/29/18 Unknown Rx NEBS] Amiodarone [Cordarone 200 MG TAB] 200 mg PO BID #60 tablet 11/29/18 Unknown Rx Aspirin [Adult Aspirin] 81 mg PO DAILY #30 11/29/18 11/08/18 05/09/18 Rx AtorvaSTATin [Lipitor] 40 mg PO QHS #30 tablet 11/29/18 Unknown Rx Carvedilol [Coreg] 3.125 mg PO BID #60 tablet 11/29/18 11/08/18 Unknown Rx Lansoprazole Solutab [Prevacid 30 mg FEEDTUBE QDAY #30 tab.rapdis 11/29/18 Unknown Rx Solutab] Lipase/Protease/Amylase [Pancreaze 1 each FEEDTUBE PRN PRN #30 capsule 11/29/18 Unknown Rx 10,500 Unit] Simple Syrup 15 ml FEEDTUBE PRN PRN #30 11/29/18 Unknown Rx oral.liqd Simple Syrup 30 ml FEEDTUBE PRN PRN #30 11/29/18 Unknown Rx oral.liqd Sodium Bicarbonate 325 mg FEEDTUBE PRN PRN #30 tablet 11/29/18 Unknown Rx Sucralfate [Carafate] 1 gm PO Q6HR #30 oral.liqd 11/29/18 Unknown Rx buPROPion SR [Wellbutrin SR] 150 mg PO BID #60 tab 11/29/18 11/08/18 05/09/18 Rx Active Medications: Generic Name Dose Route Start Last Admin Trade Name Freq PRN Reason Stop Dose Admin Albuterol 2.5 mg 11/09/18 08:00 11/20/18 22:07 Proventil IH 2.5 mg Q4HRT PRN Administration Shortness Of Breath Amiodarone HCl 200 mg 11/10/18 22:00 11/29/18 10:24 Cordarone PO 200 mg BID RADHA Administration Lipase/Protease/Amylase 1 each 11/26/18 16:41 Pancreaze 10,500 Unit FEEDTUBE PRN PRN For Clogged Feeding Tube Aspirin 81 mg 11/09/18 10:00 11/29/18 10:24 Halfprin Ec PO 81 mg DAILY RADHA Administration Atorvastatin Calcium 40 mg 11/11/18 22:00 11/29/18 01:47 Lipitor PO 40 mg QHS RADHA Administration Bupropion HCl 150 mg 11/21/18 10:00 11/29/18 10:28 Wellbutrin PO 150 mg BID RADHA Administration Dextrose 50 ml 11/20/18 21:45 D50w (25gm) Syringe IV PRN PRN Hypoglycemia Hydromorphone HCl 0.5 mg 11/19/18 11:21 11/29/18 12:18 Dilaudid IV 0.5 mg Q3H PRN Administration Pain , Severe (7-10) Hydrophilic Ointment 1 applic 11/20/18 20:27 11/27/18 09:04 Vaseline Lip Therapy TP 1 applic Q2HR PRN Administration Dry Lips Sodium Chloride 100 mls @ 999 mls/hr 11/28/18 12:00 Nacl 0.9% IV ANGEL PRN Hypotension Lansoprazole 30 mg 11/24/18 10:00 11/29/18 10:24 Prevacid Solutab FEEDTUBE 30 mg QDAY RADHA Administration Metoprolol Tartrate 2.5 mg 11/21/18 09:18 11/28/18 10:31 Lopressor IV 2.5 mg Q6HR PRN Administration Tachyarrhythmias Midazolam HCl 2 mg 11/20/18 20:27 11/21/18 04:08 Versed IV 2 mg Q10MIN PRN Administration Sedation Multi-Ingred Cream/Lotion/Oil/Oint 1 applic 11/20/18 20:27 Artificial Tears Ophth Oint OU Q4HR PRN Dry Eye(s) Ondansetron HCl 4 mg 11/11/18 13:44 11/27/18 14:39 Zofran IV 4 mg Q8H PRN Administration Nausea And Vomiting Polyethylene Glycol 17 gm 11/09/18 10:00 Miralax 3350 PO BID PRN Constipation Sertraline HCl 50 mg 11/09/18 10:00 11/29/18 10:24 Zoloft PO 50 mg DAILY RADHA Administration Simethicone 80 mg 11/12/18 11:49 11/27/18 14:39 Mylicon PO 80 mg Q6H PRN Administration Gas pain Simple Syrup 15 ml 11/26/18 16:41 Simple Syrup FEEDTUBE PRN PRN Hypoglycemia Simple Syrup 30 ml 11/26/18 16:41 Simple Syrup FEEDTUBE PRN PRN Hypoglycemia Sodium Bicarbonate 325 mg 11/26/18 16:41 Sodium Bicarbonate FEEDTUBE PRN PRN For Clogged Feeding Tube Sucralfate 1 gm 11/28/18 12:00 11/29/18 12:19 Carafate PO 1 gm Q6HR RADHA Administration
--- NOTE | 2018-11-29 12:54 | Discharge Summary ---
Providers - Providers Date of Admission: 11/08/18 07:56 Date of discharge: 11/29/18 Attending physician: RONNIE RUBIN 11/09/18 07:01 Consult to Wound/ET Nurse [CONS] Routine Reason For Exam: wound eval 11/09/18 10:47 Consult to Physician [CONS] Routine Comment: Consulting Provider: HARESH LING Physician Instructions: Reason For Exam: Cp/CHF/positive troponins 11/10/18 15:02 Physical Therapy Evaluation and Treat [CONS] Routine Comment: Reason For Exam: unsteady gait 11/13/18 11:15 Physical Therapy Evaluation and Treat [CONS] Routine Comment: up on the chair Reason For Exam: physical deconditioning 11/15/18 06:19 Consult to Dietitian/Nutrition [CONS] Routine Physician Instructions: Reason For Exam: Reason for Consult: Evaluate nutritional intake Consult to Physician [CONS] Routine Comment: Consulting Provider: PITA ASHFORD Physician Instructions: Reason For Exam: s/p cardiac arrest, icu admission 11/15/18 06:27 Consult to Physician [CONS] Routine Comment: Consulting Provider: WILFRED DOE Physician Instructions: Reason For Exam: KERWIN, s/p cardiac arrest 11/15/18 06:57 PICC Line Insertion [Consult to PICC Line RN] [CONS] Urgent Reason For Exam: on vasopressor s/p cardiac arrest Type Line:: PICC 11/19/18 08:00 Consult to Physician [CONS] Routine Comment: Consulting Provider: [facility] Physician Instructions: Reason For Exam: Bloody stools 11/19/18 08:05 Consult to Physician [CONS] Routine Comment: Consulting Provider: GILMA SOLIS Physician Instructions: Reason For Exam: bloody stool 11/19/18 12:15 Consult to Physician [CONS] Routine Comment: Consulting Provider: REED PATTON Physician Instructions: Reason For Exam: mesenteric ischemia? 11/20/18 20:28 Consult to Dietitian/Nutrition [CONS] Routine Physician Instructions: Reason For Exam: Reason for Consult: Evaluate nutritional intake 11/23/18 11:32 Consult to Dietitian/Nutrition [CONS] Routine Physician Instructions: Assess nutrtn needs, initiate, modify, manage TF Reason For Exam: Reason for Consult: Write/Manage Tube Feeding Reason for Consult: Write/Manage Tube Feeding 11/23/18 11:37 Consult to Dietitian/Nutrition [CONS] Routine Physician Instructions: Assess nutrtn needs, initiate, modify, manage TF Reason For Exam: Reason for Consult: Write/Manage Tube Feeding Reason for Consult: Write/Manage Tube Feeding 11/25/18 09:50 Consult to Physician [CONS] Routine Comment: Consulting Provider: YANET DAVID Physician Instructions: Reason For Exam: Trach and Peg Placement 11/26/18 12:13 Consult to Physician [CONS] Routine Comment: Consulting Provider: REED PATTON Physician Instructions: Reason For Exam: vasc cath placement [facility] Condition: Stable Hospital course: Patient is a 68 year old -[place] woman who was initially admitted for a cute on chronic systolic heart failure. She was managed with IV milrinone drip and IV bumex by cardiology. The drip was discontinued on 11/13 while the IV Bumex was changed to oral on 11/14. She coded on 11/15/18 and was successfully resuscitated and transferred to the ICU. She was extubated on 11/16/18 and had another cardiac arrest on 11/20/18 in which she survived but she was re-intubated. S/p cardiac arrest x2--Successfully resuscitated on 11/14/18 then patient arrested again on 11/20/18 Acute on chronic respiratory failure with hypoxia on MV > 96 hours, extubated on 11/16, care per pulmonology, re-intubated on 11/20 after second cardiac arrest, cont MV, mgt per pulmonology, s/p tracheostomy done s/p 11/28/18 HD catheter Cardiogenic Shock, resolved: off vaso-pressors, off dobutamine drip, Acute on Chronic systolic heart failure with EF of 10-15% mgt per cardiology, dobutamine drip off on 11/26/18, and diuretics as tolerated ACUTE GI BLEED- Most likely due to ischemic colitis from cardiac arrest, patient is too unstable for any intervention at this time, follow h/h closely Paroxysmal atrial fibrillation-Rate currently controlled, meds per cardiology- eliquis now on hold given gi bleed Hx of LUE DVT: Eliquis on hold due to gi bleed Hx of coronary artery disease:-cardiac cath 03/2018 revealed patent SVG to LAD, patent SVG to OM, patent SVG to PDA and patent diagonal stent, LVEF 10-15%. KERWIN, likely vasomotor nephropathy, ATN and/diuretic use: Management as per nephrology, worsening, HD planned COPD, chronic and stable Tobacco abuse: -Counseled on cessation Morbid obesity with BMI of 43.4: Lifestyle modification recommended [id number] MEDICARE CERT LT Time spent for discharge: 36 minutes Core Measure Documentation - Palliative Care Palliative Care/ Comfort Measures: Not Applicable - Core Measures Any of the following diagnoses?: heart failure - VTE Discharge Requirements Deep Vein Thrombosis/Pulmonary Embolism Present on Admission: No Has pt received <5 days of overlap therapy or INR<2.0: No Anticoagulant overlap therapy prescribed at discharge: No Contraindication No Overlap Therapy order at DC: Not Indicated - Heart Failure Discharge Requirements VERÓNICA/ARB for LVSD if EF <40%: No Reason for no VERÓNICA/ARB: Renal impairment Beta kendall at discharge: No Reason for no beta kendall on DC: Hypotension Exam - Physical Exam Narrative exam: Gen: ill appearing, intubated via trach bmi 43.3 HEENT: NCAT, EOMI, PERRL, OP Clear Neck: supple, no adenopathy, no thyromegaly, no JVD CVS/Heart: RRR, normal S1S2, pulses present bilaterally Chest/Lungs: Bibasilar Rales Symmetrical chest expansion, good air entry bilaterally GI/Abdomen: soft, nondistended, good bowel sounds, no guarding or rebound /Bladder: no suprapubic tenderness, no CVA or paraspinal tenderness Extermity/Skin: dependent edema x 4 MSK: FROM x 4 Neuro: CN 2-12 grossly intact, no new focal deficits Psych: calm - Constitutional Vitals: Temp Pulse Resp BP Pulse Ox 98.2 F 123 H 21 98/61 100 11/29/18 08:00 11/29/18 11:41 11/29/18 11:41 11/29/18 11:41 11/29/18 11:41 Plan Activity: fall precautions, other (no strenous activity) Diet: per dietitian instruction (Vital AF 1.2 diane 50ml/hr with 100cc free water flush q4hr) Special Instructions: record daily weights, record daily BP diary, record blood sugar diary, physical therapy, occupational therapy Additional Instructions: REMOVE TRACHEOSTOMY SUTURES ON 12/03/[address] Bruner, General Surgeon. Eliquis on hold due to GI bleed Follow [place] with: [place] [facility] [Primary Care Provider] - 3-5 Days
[2018-11-29 18:12] VITALS: BP 108/71
== END 2018-11-29 19:00 | DRG 4 ==
LOC: ED 02:14 → 4A 07:56 → CC1 11-15 06:19 → 4A 11-16 21:08 → CC1 11-20 20:13
PROVIDERS: ADMIT Internal Medicine; ATTEND Internal Medicine
PROC: 0BH17EZ Insertion of Endotracheal Airway into Trachea, Via Natural or Artificial Opening (ICD-10-PCS; 2018-11-15)
PROC: 4A033R1 Measurement of Arterial Saturation, Peripheral, Percutaneous Approach (ICD-10-PCS; 2018-11-15)
PROC: 5A12012 Performance of Cardiac Output, Single, Manual (ICD-10-PCS; 2018-11-15)
PROC: 02HV33Z Insertion of Infusion Device into Superior Vena Cava, Percutaneous Approach (ICD-10-PCS; 2018-11-15)
PROC: 5A1945Z Respiratory Ventilation, 24-96 Consecutive Hours (ICD-10-PCS; 2018-11-15)
PROC: 4B02XTZ Measurement of Cardiac Defibrillator, External Approach (ICD-10-PCS; 2018-11-17)
PROC: 5A09357 Assistance with Respiratory Ventilation, Less than 24 Consecutive Hours, Continuous Positive Airway Pressure (ICD-10-PCS; 2018-11-17)
PROC: 5A09357 Assistance with Respiratory Ventilation, Less than 24 Consecutive Hours, Continuous Positive Airway Pressure (ICD-10-PCS; 2018-11-18)
PROC: 5A1955Z Respiratory Ventilation, Greater than 96 Consecutive Hours (ICD-10-PCS; principal; 2018-11-20)
PROC: 0BH17EZ Insertion of Endotracheal Airway into Trachea, Via Natural or Artificial Opening (ICD-10-PCS; 2018-11-20)
PROC: 02HV33Z Insertion of Infusion Device into Superior Vena Cava, Percutaneous Approach (ICD-10-PCS; 2018-11-26)
PROC: B548ZZA Ultrasonography of Superior Vena Cava, Guidance (ICD-10-PCS; 2018-11-26)
PROC: 5A1D70Z Performance of Urinary Filtration, Intermittent, Less than 6 Hours Per Day (ICD-10-PCS; 2018-11-26)
PROC: 5A1D70Z Performance of Urinary Filtration, Intermittent, Less than 6 Hours Per Day (ICD-10-PCS; 2018-11-27)
PROC: 0B113F4 Bypass Trachea to Cutaneous with Tracheostomy Device, Percutaneous Approach (ICD-10-PCS; 2018-11-28)
PROC: 0DH63UZ Insertion of Feeding Device into Stomach, Percutaneous Approach (ICD-10-PCS; 2018-11-28)
PROC: 5A1D70Z Performance of Urinary Filtration, Intermittent, Less than 6 Hours Per Day (ICD-10-PCS; 2018-11-28)
DX: I11.0 Hypertensive heart disease with heart failure (principal); J96.21 Acute and chronic respiratory failure with hypoxia; N17.0 Acute kidney failure with tubular necrosis; R57.0 Cardiogenic shock; R18.8 Other ascites; Z68.41 Body mass index [BMI] 40.0-44.9, adult; K92.2 Gastrointestinal hemorrhage, unspecified; Z99.11 Dependence on respirator [ventilator] status; K55.8 Other vascular disorders of intestine; I50.23 Acute on chronic systolic (congestive) heart failure; J44.9 Chronic obstructive pulmonary disease, unspecified; E78.2 Mixed hyperlipidemia; F32.9 Major depressive disorder, single episode, unspecified; E66.01 Morbid (severe) obesity due to excess calories; F17.210 Nicotine dependence, cigarettes, uncomplicated; G47.33 Obstructive sleep apnea (adult) (pediatric); E87.6 Hypokalemia; I25.10 Atherosclerotic heart disease of native coronary artery without angina pectoris; W18.39XA Other fall on same level, initial encounter; I25.5 Ischemic cardiomyopathy; I25.2 Old myocardial infarction; Z99.81 Dependence on supplemental oxygen; Z95.5 Presence of coronary angioplasty implant and graft; Z86.73 Personal history of transient ischemic attack (TIA), and cerebral infarction without residual deficits; Y93.89 Activity, other specified; Y92.098 Other place in other non-institutional residence as the place of occurrence of the external cause; Y99.8 Other external cause status; Z88.0 Allergy status to penicillin; Z88.2 Allergy status to sulfonamides; Z88.6 Allergy status to analgesic agent; Z79.899 Other long term (current) drug therapy; Z79.51 Long term (current) use of inhaled steroids; Z79.01 Long term (current) use of anticoagulants; Z95.1 Presence of aortocoronary bypass graft; Z95.810 Presence of automatic (implantable) cardiac defibrillator; Z86.718 Personal history of other venous thrombosis and embolism; Z71.3 Dietary counseling and surveillance; Z71.6 Tobacco abuse counseling; T50.1X5A Adverse effect of loop [high-ceiling] diuretics, initial encounter; Y92.238 Other place in hospital as the place of occurrence of the external cause
CPT/HCPCS: 36415; 36600; 71045; 74018; 74176; 76770; 78278; 80048; 80053; 80061; 80074; 81001; 82140; 82270; 82550; 82553; 82570; 82803; 82962; 83690; 83735; 84100; 84156; 84484; 85007; 85014; 85018; 85025; 85027; 85610; 85730; 86850; 86900; 86901; 87070; 87205; 92950; 93005; 93010; 93979; 94002; 94003; 94640; 94660; 94760; 96374; G0378; A9270-GY; A9560; C9113; J0171; J0282; J1170; J1250; J1642; J1940; J2250; J2260; J2370; J2405; J2704; J2997; J3010; J7030; J7040; J7050; J7070; P9047